=== PATIENT | female | born 1950 | race Caucasian/White ===

== ENCOUNTER 2016-09-15 09:43 | Outpatient (RCR) | payer MEDICAID ==
--- OUTSIDE RECORDS SUMMARY | 2016-06-23 11:01 | XMS REPORT | Continuity of Care Document ---
Author Author [facility] Organization [facility] Address Unknown Phone Unavailable Care Team Providers Care Set O Type Operator Name Role Phone DANA STREET MD PCP Insurance Providers Payer Name Policy Number Subscriber Name Relationship [facility] [employer] [id number] Nancy Dorsey 18 Self / Same As Patient Advance Directives Directive Response Recorded Date/Time Advance Directives No 05/17/14 8:10am Health Care Power of Mechanical Oxidizer No 05/17/14 8:10am Organ Donor No 05/17/14 8:10am Problems No known problems or medical conditions. Medications Medication Dose Route Sig Days/Qty Instructions Order Date Discontinued Date Status Meloxicam (Mobic) 15 Mg PO DAILY 07/02/11 10/04/13 Discontinued Omeprazole 40 Mg PO DAILY 07/02/11 03/15/12 Discontinued [Lisinopril] 1 Tab PO DAILY 07/02/11 12/16/12 Discontinued Quetiapine Fumarate 100 Mg PO DAILY 07/02/11 03/09/13 Discontinued Omeprazole 20 Mg PO DAILY 03/15/12 01/17/13 Discontinued [Eye Drops] 03/15/12 01/16/13 Discontinued Lisinopril 20 Mg PO DAILY 12/16/12 Active Ezetimibe 10 Mg PO BEDTIME 01/16/13 Active Aspirin 81 Mg PO DAILY 01/17/13 04/09/14 Discontinued Clopidogrel Bisulfate 75 Mg PO DAILY 01/17/13 Active Pantoprazole Sod 40 Mg PO DAILY 01/17/13 Active Metoprolol Tartrate 12.5 Mg PO TWICE A DAY take half a tablet twice daily 01/17/13 Active Timolol Maleate/Pf 1 Each OU TWICE A DAY 03/09/13 10/05/13 Discontinued Sertraline HCl 100 Mg PO DAILY 03/09/13 10/05/13 Discontinued Lovastatin (Mevacor) 1 Each PO DAILY WITH SUPPER 03/29/13 04/09/14 Discontinued Sucralfate 1 Gm PO THREE TIMES A DAY 30 Qty 03/29/13 06/22/13 Discontinued Meloxicam (Mobic) 1 Each PO DAILY 06/22/13 10/04/13 Discontinued Latanoprost 2.5 Ml OU BEDTIME 10/05/13 Active Multivitamin 1 Each PO DAILY 10/05/13 Active Meloxicam (Mobic) 15 Mg PO DAILY 04/09/14 Active Sertraline HCl 100 Mg PO DAILY 04/09/14 Active Timolol Maleate 1 Drop OP DIRECTED 5 Qty 04/09/14 Active Social History Social History Problem Response Recorded Date/Time Recent Foreign Travel No 06/29/2014 11:38am Hospital Discharge Instructions No hospital discharge instructions. Plan of Care No plan of care. Functional Status No functional status results. Allergies, Adverse Reactions, Alerts Allergen Type Severity Reaction Status Last Updated Iodinated Contrast Media - IV Dye Allergy Unknown Active 12/07/13 amoxicillin ([id number]) Allergy Unknown Active 12/07/13 Immunizations Name Given Type Date of Influenza Vaccine 06/13/13 Historical Vital Signs No known vital signs results. Results Laboratory Results Test Name Result Units Flags Reference Collection Date/Time Result Date/ Time Comments White Blood Count 5.8 10^3/uL 4.3-11.0 08/21/2014 10:57am 08/21/2014 11 :07am Red Blood Count 3.86 10^6/uL L 4.35-5.85 08/21/2014 10:57am 08/21/2014 11 :07am Hemoglobin 11.5 G/DL 11.5-16.0 08/21/2014 10:57am 08/21/2014 11:07am Hematocrit 35 % 35-52 08/21/2014 10:57am 08/21/2014 11:07am Mean Corpuscular Volume 91 FL 80-99 08/21/2014 10:57am 08/21/2014 11: 07am Mean Corpuscular Hemoglobin 30 PG 25-34 08/21/2014 10:57am 08/21/2014 11:07am Mean Corpuscular Hemoglobin Concent 33 G/DL 32-36 08/21/2014 10:57am 11:07am Red Cell Distribution Width 13.0 % 10.0-14.5 08/21/2014 10:57am 2013 11:07am Platelet Count 182 10^3/uL 130-400 08/21/2014 10:57am 08/21/2014 11: 07am Mean Platelet Volume 9.2 FL 7.4-10.4 08/21/2014 10:57am 08/21/2014 11: 07am Neutrophils (%) (Auto) 65 % 42-75 08/21/2014 10:57am 08/21/2014 11: 07am Lymphocytes (%) (Auto) 25 % 12-44 08/21/2014 10:57am 08/21/2014 11: 07am Monocytes (%) (Auto) 7 % 0-12 08/21/2014 10:57am 08/21/2014 11:07am Eosinophils (%) (Auto) 2 % 0-10 08/21/2014 10:57am 08/21/2014 11:07am Basophils (%) (Auto) 0 % 0-10 08/21/2014 10:57am 08/21/2014 11:07am Neutrophils # (Auto) 3.8 X 10^3 1.8-7.8 08/21/2014 10:57am 08/21/2014 11:07am Lymphocytes # (Auto) 1.5 X 10^3 1.0-4.0 08/21/2014 10:57am 08/21/2014 11:07am Monocytes # (Auto) 0.4 X 10^3 0.0-1.0 08/21/2014 10:57am 08/21/2014 11: 07am Eosinophils # (Auto) 0.1 10^3/uL 0.0-0.3 08/21/2014 10:57am 08/21/2014 11:07am Basophils # (Auto) 0.0 10^3/uL 0.0-0.1 08/21/2014 10:57am 08/21/2014 11 :07am Sodium Level 139 MMOL/L 135-145 08/21/2014 10:57am 08/21/2014 11:38am Potassium Level 4.0 MMOL/L 3.6-5.0 08/21/2014 10:57am 08/21/2014 11: 38am Chloride Level 104 MMOL/L 98-107 08/21/2014 10:57am 08/21/2014 11:38am Carbon Dioxide Level 27 MMOL/L 21-32 08/21/2014 10:57am 08/21/2014 11: 38am Blood Urea Nitrogen 20 MG/DL H 7-18 08/21/2014 10:57am 08/21/2014 11: 38am Creatinine 1.59 MG/DL H 0.60-1.30 08/21/2014 10:57am 08/21/2014 11:38am BUN/Creatinine Ratio 13 08/21/2014 10:57am 08/21/2014 11:38am Estimat Glomerular Filtration Rate 33 08/21/2014 10:57am 2013 11:38am GFR INTERPRETIVE DATA UNITS FOR ESTIMATED GFR (eGFR): mL/min/1.73 M2 REFERENCE RANGE FOR ESTIMATED GFR (eGFR) eGFR NORMAL eGFR >60 MODERATELY DECREASED eGFR 30-59 SEVERLY DECREASED eGFR 15-29 KIDNEY FAILURE <15 (OR DIALYSIS) Glucose Level 116 MG/DL H 70-105 08/21/2014 10:57am 08/21/2014 11:38am Calcium Level 8.7 MG/DL 8.5-10.1 08/21/2014 10:57am 08/21/2014 11:38am Total Bilirubin 0.4 MG/DL 0.1-1.0 08/21/2014 10:57am 08/21/2014 11: 38am Alkaline Phosphatase 92 U/L 40-136 08/21/2014 10:57am 08/21/2014 11: 38am Aspartate Amino Transf (AST/SGOT) 20 U/L 5-34 08/21/2014 10:57am 2013 11:38am Alanine Aminotransferase (ALT/SGPT) 17 U/L 0-55 08/21/2014 10:57am 05/2014 11:38am Total Protein 6.5 G/DL 6.4-8.2 08/21/2014 10:57am 08/21/2014 11:38am Albumin 3.7 G/DL 3.2-4.5 08/21/2014 10:57am 08/21/2014 11:38am Ferritin 208 H NG/ML 15-150 08/21/2014 10:57am 08/22/2014 9:17am Iron Level 84 UG/DL 35-180 08/21/2014 10:57am 08/22/2014 9:17am Transferrin % Saturation 28 % 15-50 08/21/2014 10:57am 08/22/2014 9: 17am Total Iron Binding Capacity 300 UG/DL 280-380 08/21/2014 10:57am 2013 9:17am TESTING PERFORMED BY: Kasey [place] [address] [place] [address] Procedures No known history of procedures. Encounters Encounter Location Date/Time Discharged Recurring Via [facility] 08/21/14 10:42am
[2016-06-23 11:31] LABS: BASOPHILS % (AUTO) 0 % (0-10); EOSINOPHILS # (AUTO) 0.2 10^3/uL (0.0-0.3); EOSINOPHILS % (AUTO) 3 % (0-10); LYMPHOCYTES % (AUTO) 20 % (12-44); MEAN CORPUSCULAR HEMOGLOBIN 31 PG (25-34); MEAN CORPUSCULAR HGB CONC 34 G/DL (32-36); MEAN CORPUSCULAR VOLUME 91 FL (80-99); MEAN PLATELET VOLUME 8.7 FL (7.4-10.4); MONOCYTES # (AUTO) 0.4 X 10^3 (0.0-1.0); MONOCYTES % (AUTO) 9 % (0-12); NEUTROPHILS # (AUTO) 3.3 X 10^3 (1.8-7.8); NEUTROPHILS % (AUTO) 68 % (42-75); PLATELET COUNT 188 10^3/uL (130-400); WHITE BLOOD COUNT 4.8 10^3/uL (4.3-11.0)
[2016-06-23 12:10] LABS: ALBUMIN 3.8 G/DL (3.2-4.5); BILIRUBIN,TOTAL 0.4 MG/DL (0.1-1.0); CREATININE SERUM 1.26 MG/DL (0.60-1.30); POTASSIUM 3.9 MMOL/L (3.6-5.0); TOTAL PROTEIN 6.6 G/DL (6.4-8.2)
[2016-07-14 13:34] LABS: BASOPHILS % (AUTO) 0 % (0-10); EOSINOPHILS % (AUTO) 0 % (0-10); LYMPHOCYTES # (AUTO) 0.8 X 10^3 (1.0-4.0); LYMPHOCYTES % (AUTO) 12 % (12-44); MEAN CORPUSCULAR HEMOGLOBIN 30 PG (25-34); MEAN CORPUSCULAR HGB CONC 34 G/DL (32-36); MEAN CORPUSCULAR VOLUME 89 FL (80-99); MEAN PLATELET VOLUME 9.5 FL (7.4-10.4); MONOCYTES # (AUTO) 0.1 X 10^3 (0.0-1.0); MONOCYTES % (AUTO) 1 % (0-12); NEUTROPHILS # (AUTO) 5.9 X 10^3 (1.8-7.8); NEUTROPHILS % (AUTO) 88 % (42-75); PLATELET COUNT 167 10^3/uL (130-400); RED BLOOD COUNT 4.24 10^6/uL (4.35-5.85); WHITE BLOOD COUNT 6.8 10^3/uL (4.3-11.0)
[2016-07-14 14:08] LABS: ALBUMIN 3.9 G/DL (3.2-4.5); BILIRUBIN,TOTAL 0.5 MG/DL (0.1-1.0); CALCIUM 9.1 MG/DL (8.5-10.1); CREATININE SERUM 1.32 MG/DL (0.60-1.30); POTASSIUM 4.1 MMOL/L (3.6-5.0); TOTAL PROTEIN 6.8 G/DL (6.4-8.2)
[2016-07-21 15:38] LABS: BASOPHILS % (AUTO) 0 % (0-10); EOSINOPHILS # (AUTO) 0.1 10^3/uL (0.0-0.3); EOSINOPHILS % (AUTO) 3 % (0-10); LYMPHOCYTES # (AUTO) 1.3 X 10^3 (1.0-4.0); LYMPHOCYTES % (AUTO) 61 % (12-44); MEAN CORPUSCULAR HEMOGLOBIN 29 PG (25-34); MEAN CORPUSCULAR HGB CONC 33 G/DL (32-36); MEAN CORPUSCULAR VOLUME 90 FL (80-99); MEAN PLATELET VOLUME 9.7 FL (7.4-10.4); MONOCYTES # (AUTO) 0.1 X 10^3 (0.0-1.0); MONOCYTES % (AUTO) 3 % (0-12); NEUTROPHILS # (AUTO) 0.7 X 10^3 (1.8-7.8); NEUTROPHILS % (AUTO) 32 % (42-75); PLATELET COUNT 100 10^3/uL (130-400); RED BLOOD COUNT 4.02 10^6/uL (4.35-5.85); RED CELL DISTRIBUTION WIDTH 13.3 % (10.0-14.5); WHITE BLOOD COUNT 2.1 10^3/uL (4.3-11.0)
[2016-07-21 16:04] LABS: CALCIUM 8.6 MG/DL (8.5-10.1); CREATININE SERUM 1.23 MG/DL (0.60-1.30); POTASSIUM 4.1 MMOL/L (3.6-5.0)
[2016-07-28 15:04] LABS: BASOPHILS % (AUTO) 0 % (0-10); EOSINOPHILS % (AUTO) 1 % (0-10); LYMPHOCYTES # (AUTO) 1.3 X 10^3 (1.0-4.0); LYMPHOCYTES % (AUTO) 47 % (12-44); MEAN CORPUSCULAR HEMOGLOBIN 29 PG (25-34); MEAN CORPUSCULAR HGB CONC 33 G/DL (32-36); MEAN CORPUSCULAR VOLUME 90 FL (80-99); MEAN PLATELET VOLUME 8.9 FL (7.4-10.4); MONOCYTES # (AUTO) 0.6 X 10^3 (0.0-1.0); MONOCYTES % (AUTO) 23 % (0-12); NEUTROPHILS # (AUTO) 0.8 X 10^3 (1.8-7.8); NEUTROPHILS % (AUTO) 30 % (42-75); PLATELET COUNT 168 10^3/uL (130-400); RED BLOOD COUNT 3.63 10^6/uL (4.35-5.85); WHITE BLOOD COUNT 2.7 10^3/uL (4.3-11.0)
[2016-07-28 15:50] LABS: CALCIUM 8.7 MG/DL (8.5-10.1); CREATININE SERUM 1.1 MG/DL (0.60-1.30)
[2016-08-04 11:08] LABS: BASOPHILS % (AUTO) 0 % (0-10); EOSINOPHILS % (AUTO) 0 % (0-10); LYMPHOCYTES # (AUTO) 1.1 X 10^3 (1.0-4.0); LYMPHOCYTES % (AUTO) 12 % (12-44); MEAN CORPUSCULAR HGB CONC 33 G/DL (32-36); MEAN CORPUSCULAR VOLUME 89 FL (80-99); MEAN PLATELET VOLUME 9.2 FL (7.4-10.4); MONOCYTES % (AUTO) 1 % (0-12); NEUTROPHILS # (AUTO) 7.7 X 10^3 (1.8-7.8); NEUTROPHILS % (AUTO) 88 % (42-75); PLATELET COUNT 212 10^3/uL (130-400); WHITE BLOOD COUNT 8.8 10^3/uL (4.3-11.0)
[2016-08-04 11:09] LABS: MEAN CORPUSCULAR HEMOGLOBIN 29 PG (25-34)
[2016-08-04 11:32] LABS: ALBUMIN 3.8 G/DL (3.2-4.5); BILIRUBIN,TOTAL 0.5 MG/DL (0.1-1.0); CALCIUM 9.2 MG/DL (8.5-10.1); CREATININE SERUM 1.39 MG/DL (0.60-1.30); MAGNESIUM 1.6 MG/DL (1.8-2.4); POTASSIUM 4.4 MMOL/L (3.6-5.0); TOTAL PROTEIN 6.9 G/DL (6.4-8.2)
[2016-08-11 14:13] LABS: BASOPHILS % (AUTO) 0 % (0-10); EOSINOPHILS # (AUTO) 0.1 10^3/uL (0.0-0.3); EOSINOPHILS % (AUTO) 5 % (0-10); LYMPHOCYTES # (AUTO) 0.8 X 10^3 (1.0-4.0); LYMPHOCYTES % (AUTO) 55 % (12-44); MEAN CORPUSCULAR HEMOGLOBIN 30 PG (25-34); MEAN CORPUSCULAR HGB CONC 33 G/DL (32-36); MEAN CORPUSCULAR VOLUME 90 FL (80-99); MEAN PLATELET VOLUME 10.3 FL (7.4-10.4); MONOCYTES % (AUTO) 3 % (0-12); NEUTROPHILS # (AUTO) 0.6 X 10^3 (1.8-7.8); NEUTROPHILS % (AUTO) 38 % (42-75); PLATELET COUNT 102 10^3/uL (130-400); RED BLOOD COUNT 3.45 10^6/uL (4.35-5.85); RED CELL DISTRIBUTION WIDTH 13.9 % (10.0-14.5); WHITE BLOOD COUNT 1.5 10^3/uL (4.3-11.0)
[2016-08-11 15:39] LABS: CALCIUM 8.7 MG/DL (8.5-10.1); CREATININE SERUM 1.13 MG/DL (0.60-1.30)
[2016-08-18 15:25] LABS: BASOPHILS % (AUTO) 0 % (0-10); EOSINOPHILS % (AUTO) 0 % (0-10); LYMPHOCYTES # (AUTO) 1.8 X 10^3 (1.0-4.0); LYMPHOCYTES % (AUTO) 39 % (12-44); MEAN CORPUSCULAR HEMOGLOBIN 29 PG (25-34); MEAN CORPUSCULAR HGB CONC 32 G/DL (32-36); MEAN CORPUSCULAR VOLUME 90 FL (80-99); MEAN PLATELET VOLUME 9.3 FL (7.4-10.4); MONOCYTES # (AUTO) 1.1 X 10^3 (0.0-1.0); MONOCYTES % (AUTO) 23 % (0-12); NEUTROPHILS # (AUTO) 1.8 X 10^3 (1.8-7.8); NEUTROPHILS % (AUTO) 38 % (42-75); PLATELET COUNT 216 10^3/uL (130-400); RED BLOOD COUNT 3.35 10^6/uL (4.35-5.85); RED CELL DISTRIBUTION WIDTH 15.2 % (10.0-14.5); WHITE BLOOD COUNT 4.7 10^3/uL (4.3-11.0)
[2016-08-18 16:34] LABS: CALCIUM 8.9 MG/DL (8.5-10.1); CREATININE SERUM 1.12 MG/DL (0.60-1.30); POTASSIUM 3.4 MMOL/L (3.6-5.0)
[2016-08-25 11:41] LABS: BASOPHILS % (AUTO) 0 % (0-10); EOSINOPHILS % (AUTO) 0 % (0-10); LYMPHOCYTES # (AUTO) 0.8 X 10^3 (1.0-4.0); LYMPHOCYTES % (AUTO) 10 % (12-44); MEAN CORPUSCULAR HEMOGLOBIN 30 PG (25-34); MEAN CORPUSCULAR HGB CONC 33 G/DL (32-36); MEAN CORPUSCULAR VOLUME 90 FL (80-99); MEAN PLATELET VOLUME 9.5 FL (7.4-10.4); MONOCYTES # (AUTO) 0.1 X 10^3 (0.0-1.0); MONOCYTES % (AUTO) 1 % (0-12); NEUTROPHILS # (AUTO) 6.9 X 10^3 (1.8-7.8); NEUTROPHILS % (AUTO) 89 % (42-75); PLATELET COUNT 214 10^3/uL (130-400); RED BLOOD COUNT 3.49 10^6/uL (4.35-5.85); RED CELL DISTRIBUTION WIDTH 15.6 % (10.0-14.5); WHITE BLOOD COUNT 7.8 10^3/uL (4.3-11.0)
[2016-08-25 12:18] LABS: ALBUMIN 3.6 G/DL (3.2-4.5); BILIRUBIN,TOTAL 0.4 MG/DL (0.1-1.0); CALCIUM 8.9 MG/DL (8.5-10.1); CREATININE SERUM 1.16 MG/DL (0.60-1.30); MAGNESIUM 1.3 MG/DL (1.8-2.4); POTASSIUM 4.2 MMOL/L (3.6-5.0); TOTAL PROTEIN 6.8 G/DL (6.4-8.2)
[2016-09-01 15:02] LABS: BASOPHILS % (AUTO) 0 % (0-10); EOSINOPHILS % (AUTO) 1 % (0-10); LYMPHOCYTES # (AUTO) 1.3 X 10^3 (1.0-4.0); LYMPHOCYTES % (AUTO) 59 % (12-44); MEAN CORPUSCULAR HEMOGLOBIN 29 PG (25-34); MEAN CORPUSCULAR HGB CONC 33 G/DL (32-36); MEAN CORPUSCULAR VOLUME 90 FL (80-99); MEAN PLATELET VOLUME 10.3 FL (7.4-10.4); MONOCYTES # (AUTO) 0.1 X 10^3 (0.0-1.0); MONOCYTES % (AUTO) 6 % (0-12); NEUTROPHILS # (AUTO) 0.8 X 10^3 (1.8-7.8); NEUTROPHILS % (AUTO) 34 % (42-75); PLATELET COUNT 78 10^3/uL (130-400); RED CELL DISTRIBUTION WIDTH 15.6 % (10.0-14.5); WHITE BLOOD COUNT 2.2 10^3/uL (4.3-11.0)
[2016-09-01 15:48] LABS: CALCIUM 8.8 MG/DL (8.5-10.1); CREATININE SERUM 1.12 MG/DL (0.60-1.30); POTASSIUM 3.5 MMOL/L (3.6-5.0)
[2016-09-08 14:20] LABS: BASOPHILS % (AUTO) 0 % (0-10); EOSINOPHILS # (AUTO) 0.1 10^3/uL (0.0-0.3); EOSINOPHILS % (AUTO) 1 % (0-10); LYMPHOCYTES # (AUTO) 1.6 X 10^3 (1.0-4.0); LYMPHOCYTES % (AUTO) 32 % (12-44); MEAN CORPUSCULAR HEMOGLOBIN 30 PG (25-34); MEAN CORPUSCULAR HGB CONC 32 G/DL (32-36); MEAN CORPUSCULAR VOLUME 92 FL (80-99); MEAN PLATELET VOLUME 9.9 FL (7.4-10.4); MONOCYTES # (AUTO) 0.7 X 10^3 (0.0-1.0); MONOCYTES % (AUTO) 14 % (0-12); NEUTROPHILS # (AUTO) 2.7 X 10^3 (1.8-7.8); NEUTROPHILS % (AUTO) 53 % (42-75); PLATELET COUNT 153 10^3/uL (130-400); RED BLOOD COUNT 3.11 10^6/uL (4.35-5.85); WHITE BLOOD COUNT 5.1 10^3/uL (4.3-11.0)
[2016-09-08 14:44] LABS: CALCIUM 8.6 MG/DL (8.5-10.1); CREATININE SERUM 1.14 MG/DL (0.60-1.30); POTASSIUM 3.5 MMOL/L (3.6-5.0)
[~2016-09-15] VITALS: Ht 147.3 cm; Wt 98.4 kg
[~2016-09-15 09:43] MED LIST: ALTEPLASE 2 MG (CATHFLO) CANCER CENTER IV ONE; ASP81TEC PO; BRIM5DRO OU; CARBOPLATIN IV SCH; CHOL100045 PO; CLOP75TA PO; COMBIGAN OPTH OU; D5W IV SCH; DOXE25CA46 PO; EYE DROPS; EZET10TA5 PO; FAMOTIDINE 20MG/2ML IV (CANCER CTR) IV SCH; LATA2.5D19 OU; LISI40TA PO; LISINOPRIL PO; LOVA10TA PO; LOVA20TA2 PO; MAGN400T6 PO; MELO-195 PO; METO-333 PO; MULT-974 PO; NS IV 500 ML (CANCER CENTER) IV SCH; OMEP20TA2 PO; OMEP40CA36 PO; ONDANSETRON 16 MG, DEXAMETHASONE 10 MG/NS 50 ML IVPB IV SCH; PACLITAXEL SEMI SYNTHETIC IV SCH; PNT40TEC PO; QTP100T PO; SCR1T1 PO; SRTR100T PO; TIMO1DRO4 OU; TML5OP2.5 OP; [UNRECOGNIZED DRUG - OTHER] IV SCH; [UNRECOGNIZED DRUG - OTHER] IV SCH; [UNRECOGNIZED DRUG - OTHER] IV SCH; diphenhydrAMINE 25 MG TAB (BENADRYL) CANCER CENTER PO SCH
[2016-09-15 10:05] LABS: BASOPHILS % (AUTO) 0 % (0-10); EOSINOPHILS % (AUTO) 0 % (0-10); LYMPHOCYTES # (AUTO) 0.8 X 10^3 (1.0-4.0); LYMPHOCYTES % (AUTO) 10 % (12-44); MEAN CORPUSCULAR HEMOGLOBIN 29 PG (25-34); MEAN CORPUSCULAR HGB CONC 32 G/DL (32-36); MEAN CORPUSCULAR VOLUME 92 FL (80-99); MEAN PLATELET VOLUME 10.1 FL (7.4-10.4); MONOCYTES # (AUTO) 0.1 X 10^3 (0.0-1.0); MONOCYTES % (AUTO) 1 % (0-12); NEUTROPHILS # (AUTO) 7.3 X 10^3 (1.8-7.8); NEUTROPHILS % (AUTO) 89 % (42-75); PLATELET COUNT 147 10^3/uL (130-400); RED BLOOD COUNT 3.27 10^6/uL (4.35-5.85); RED CELL DISTRIBUTION WIDTH 17.7 % (10.0-14.5); WHITE BLOOD COUNT 8.2 10^3/uL (4.3-11.0)
[2016-09-15] MEDS ORDERED: MAGNESIUM SULFATE (CANCER CTR) 3 GM in NS (IVPB) CANCER CENTER 100 ML IV ONE (10:28)
[2016-09-15 10:36] LABS: ALBUMIN 3.7 G/DL (3.2-4.5); BILIRUBIN,TOTAL 0.5 MG/DL (0.1-1.0); CALCIUM 8.7 MG/DL (8.5-10.1); CREATININE SERUM 1.35 MG/DL (0.60-1.30); MAGNESIUM 1.4 MG/DL (1.8-2.4); POTASSIUM 4.4 MMOL/L (3.6-5.0); TOTAL PROTEIN 6.8 G/DL (6.4-8.2)
== END 2016-09-21 | disposition home or self-care (01) ==
LOC: ONC 09:43
PROVIDERS: ATTEND Internal Medicine Hematology & Oncology
DX: Z51.11 Encounter for antineoplastic chemotherapy (principal); C56.2 Malignant neoplasm of left ovary; C55 Malignant neoplasm of uterus, part unspecified; C79.89 Secondary malignant neoplasm of other specified sites; C78.5 Secondary malignant neoplasm of large intestine and rectum; C78.6 Secondary malignant neoplasm of retroperitoneum and peritoneum; Z85.3 Personal history of malignant neoplasm of breast; K21.0 Gastro-esophageal reflux disease with esophagitis; K44.9 Diaphragmatic hernia without obstruction or gangrene; D50.0 Iron deficiency anemia secondary to blood loss (chronic); D64.81 Anemia due to antineoplastic chemotherapy; D63.1 Anemia in chronic kidney disease; N18.9 Chronic kidney disease, unspecified; I25.10 Atherosclerotic heart disease of native coronary artery without angina pectoris; Z95.5 Presence of coronary angioplasty implant and graft; Z79.02 Long term (current) use of antithrombotics/antiplatelets; Z79.82 Long term (current) use of aspirin; Z92.21 Personal history of antineoplastic chemotherapy
CPT/HCPCS: 36415; 36591; 36593; 80048; 80053; 83735; 85025; 86300; 86304; 96367; 96368; 96375; 96413; 96415; 96417; 99213

== ENCOUNTER 2016-12-08 12:55 | Outpatient (RCR) | payer MEDICAID ==
--- OUTSIDE RECORDS SUMMARY | 2016-09-22 11:34 | XMS REPORT | Continuity of Care Document ---
Author Author [facility] Organization [facility] Address Unknown Phone Unavailable Care Team Providers Care Corrugator Machine Operator Name Role Phone DANA STREET MD PCP Insurance Providers Payer Name Policy Number Subscriber Name Relationship [facility] [employer] [id number] Nancy Dorsey 20 Self / Same As Patient Advance Directives Directive Response Recorded Date/Time Advance Directives No 05/17/14 8:10am Health Care Power of Senior Software Quality Engineer No 05/17/14 8:10am Organ Donor No 05/17/14 [...] IV Dye Allergy Unknown Active 12/07/13 amoxicillin ([id number]) Allergy Unknown Active 12/07/13 Immunizations Name Given [...] 10:57am 2013 9:17am TESTING PERFORMED BY: Kasey [place] [address] [place] [address] Procedures No known history of procedures. Encounters Encounter Location Date/Time Discharged Recurring [facility] 08/21/14 10:42am
[2016-09-22 11:37] LABS: BASOPHILS % (AUTO) 0 % (0-10); EOSINOPHILS # (AUTO) 0.1 10^3/uL (0.0-0.3); EOSINOPHILS % (AUTO) 5 % (0-10); LYMPHOCYTES # (AUTO) 0.9 X 10^3 (1.0-4.0); LYMPHOCYTES % (AUTO) 58 % (12-44); MEAN CORPUSCULAR HEMOGLOBIN 30 PG (25-34); MEAN CORPUSCULAR HGB CONC 32 G/DL (32-36); MEAN CORPUSCULAR VOLUME 92 FL (80-99); MEAN PLATELET VOLUME 10.4 FL (7.4-10.4); MONOCYTES # (AUTO) 0.1 X 10^3 (0.0-1.0); MONOCYTES % (AUTO) 4 % (0-12); NEUTROPHILS # (AUTO) 0.5 X 10^3 (1.8-7.8); NEUTROPHILS % (AUTO) 32 % (42-75); PLATELET COUNT 64 10^3/uL (130-400); RED BLOOD COUNT 2.98 10^6/uL (4.35-5.85); RED CELL DISTRIBUTION WIDTH 17.3 % (10.0-14.5); WHITE BLOOD COUNT 1.6 10^3/uL (4.3-11.0)
[2016-09-22 12:14] LABS: CALCIUM 8.7 MG/DL (8.5-10.1); CREATININE SERUM 1.14 MG/DL (0.60-1.30); POTASSIUM 4.1 MMOL/L (3.6-5.0)
[2016-09-29 13:33] LABS: BASOPHILS % (AUTO) 0 % (0-10); EOSINOPHILS % (AUTO) 1 % (0-10); LYMPHOCYTES # (AUTO) 1.5 X 10^3 (1.0-4.0); LYMPHOCYTES % (AUTO) 38 % (12-44); MEAN CORPUSCULAR HEMOGLOBIN 30 PG (25-34); MEAN CORPUSCULAR HGB CONC 32 G/DL (32-36); MEAN CORPUSCULAR VOLUME 92 FL (80-99); MONOCYTES # (AUTO) 0.7 X 10^3 (0.0-1.0); MONOCYTES % (AUTO) 19 % (0-12); NEUTROPHILS # (AUTO) 1.6 X 10^3 (1.8-7.8); NEUTROPHILS % (AUTO) 42 % (42-75); PLATELET COUNT 106 10^3/uL (130-400); RED BLOOD COUNT 3.18 10^6/uL (4.35-5.85); WHITE BLOOD COUNT 3.8 10^3/uL (4.3-11.0)
[2016-09-29 14:33] LABS: CALCIUM 8.9 MG/DL (8.5-10.1); CREATININE SERUM 1.17 MG/DL (0.60-1.30); POTASSIUM 3.8 MMOL/L (3.6-5.0)
[2016-10-06 10:01] LABS: BASOPHILS % (AUTO) 0 % (0-10); EOSINOPHILS % (AUTO) 1 % (0-10); LYMPHOCYTES % (AUTO) 23 % (12-44); MEAN CORPUSCULAR HEMOGLOBIN 30 PG (25-34); MEAN CORPUSCULAR HGB CONC 32 G/DL (32-36); MEAN CORPUSCULAR VOLUME 94 FL (80-99); MEAN PLATELET VOLUME 10.1 FL (7.4-10.4); MONOCYTES # (AUTO) 0.4 X 10^3 (0.0-1.0); MONOCYTES % (AUTO) 9 % (0-12); NEUTROPHILS % (AUTO) 68 % (42-75); PLATELET COUNT 119 10^3/uL (130-400); RED CELL DISTRIBUTION WIDTH 18.4 % (10.0-14.5); WHITE BLOOD COUNT 4.4 10^3/uL (4.3-11.0)
[2016-10-06 10:26] LABS: ALBUMIN 3.6 G/DL (3.2-4.5); BILIRUBIN,TOTAL 0.4 MG/DL (0.1-1.0); CALCIUM 8.7 MG/DL (8.5-10.1); CREATININE SERUM 1.14 MG/DL (0.60-1.30); MAGNESIUM 1.4 MG/DL (1.8-2.4); POTASSIUM 4.2 MMOL/L (3.6-5.0); TOTAL PROTEIN 6.4 G/DL (6.4-8.2)
[2016-10-06 11:31] LABS: %SAT TOTAL IRON BINDING CAPIC 39 % (15-50); TIBC 333 ug/dL (280-380)
[2016-10-07 07:39] LABS: FERRITIN 461 ng/mL (15-150); UIBC 202 ug/dL (55-450)
[2016-11-10 11:22] LABS: BASOPHILS % (AUTO) 0 % (0-10); EOSINOPHILS # (AUTO) 0.2 10^3/uL (0.0-0.3); EOSINOPHILS % (AUTO) 3 % (0-10); LYMPHOCYTES # (AUTO) 1.4 X 10^3 (1.0-4.0); LYMPHOCYTES % (AUTO) 24 % (12-44); MEAN CORPUSCULAR HEMOGLOBIN 31 PG (25-34); MEAN CORPUSCULAR HGB CONC 32 G/DL (32-36); MEAN CORPUSCULAR VOLUME 97 FL (80-99); MEAN PLATELET VOLUME 9.1 FL (7.4-10.4); MONOCYTES # (AUTO) 0.5 X 10^3 (0.0-1.0); MONOCYTES % (AUTO) 8 % (0-12); NEUTROPHILS # (AUTO) 3.8 X 10^3 (1.8-7.8); NEUTROPHILS % (AUTO) 65 % (42-75); PLATELET COUNT 158 10^3/uL (130-400); RED BLOOD COUNT 3.53 10^6/uL (4.35-5.85); RED CELL DISTRIBUTION WIDTH 17.3 % (10.0-14.5); RETICULOCYTE % 2.14 % (0.50-2.40); WHITE BLOOD COUNT 5.8 10^3/uL (4.3-11.0)
[2016-11-10 11:46] LABS: ALBUMIN 3.9 G/DL (3.2-4.5); BILIRUBIN,TOTAL 0.4 MG/DL (0.1-1.0); CALCIUM 8.9 MG/DL (8.5-10.1); CREATININE SERUM 1.3 MG/DL (0.60-1.30); POTASSIUM 4.1 MMOL/L (3.6-5.0); TOTAL PROTEIN 6.8 G/DL (6.4-8.2)
[~2016-12-08 12:55] MED LIST changes: +ACETAMINOPHEN 500 MG TAB (TYLENOL) CANCER CTR ONE; -ALTEPLASE 2 MG (CATHFLO) CANCER CENTER IV ONE; -CARBOPLATIN IV SCH; -D5W IV SCH; -FAMOTIDINE 20MG/2ML IV (CANCER CTR) IV SCH; +NS IV 500 ML (CANCER CENTER) 500 ML ONE; -NS IV 500 ML (CANCER CENTER) IV SCH; -ONDANSETRON 16 MG, DEXAMETHASONE 10 MG/NS 50 ML IVPB IV SCH; -PACLITAXEL SEMI SYNTHETIC IV SCH; -[UNRECOGNIZED DRUG - OTHER] IV SCH; -[UNRECOGNIZED DRUG - OTHER] IV SCH; -[UNRECOGNIZED DRUG - OTHER] IV SCH; -diphenhydrAMINE 25 MG TAB (BENADRYL) CANCER CENTER PO SCH
== END 2016-12-21 | disposition home or self-care (01) ==
LOC: ONC 12:55
PROVIDERS: ATTEND Internal Medicine Hematology & Oncology
DX: C56.2 Malignant neoplasm of left ovary (principal); C55 Malignant neoplasm of uterus, part unspecified; C79.89 Secondary malignant neoplasm of other specified sites; C78.5 Secondary malignant neoplasm of large intestine and rectum; C78.6 Secondary malignant neoplasm of retroperitoneum and peritoneum; Z85.3 Personal history of malignant neoplasm of breast; K21.0 Gastro-esophageal reflux disease with esophagitis; K44.9 Diaphragmatic hernia without obstruction or gangrene; D50.0 Iron deficiency anemia secondary to blood loss (chronic); D64.81 Anemia due to antineoplastic chemotherapy; D63.1 Anemia in chronic kidney disease; N18.9 Chronic kidney disease, unspecified; I25.10 Atherosclerotic heart disease of native coronary artery without angina pectoris; Z95.5 Presence of coronary angioplasty implant and graft; Z79.02 Long term (current) use of antithrombotics/antiplatelets; Z79.82 Long term (current) use of aspirin; Z92.21 Personal history of antineoplastic chemotherapy; Z45.2 Encounter for adjustment and management of vascular access device
CPT/HCPCS: 36415; 36430; 36591; 80048; 80053; 82728; 83540; 83735; 85025; 85045; 86300; 86304; 86850; 86900; 86901; 86920; 96523; 99213

== ENCOUNTER → 2016-12-21 | Outpatient (CLI) | payer MEDICAID ==
[~2016-12-21] MED LIST changes: -ACETAMINOPHEN 500 MG TAB (TYLENOL) CANCER CTR ONE; -NS IV 500 ML (CANCER CENTER) 500 ML ONE
--- NOTE | 2016-12-22 10:21 | Diagnostic Imaging Report ---
Bilateral screening mammogram The current study was also evaluated with a Computer Aided Detection (CAD) system. Indication: Screening. No current complaints stated on the questionnaire. COMPARISON: 11/15/15. FINDINGS: The breasts are composed of scattered fibroglandular densities. There are multiple benign-appearing calcifications seen. Surgical clips are seen in the outer aspect of the left breast without evidence of scarring. Allowing for technique and positional differences, no suspicious change is seen. IMPRESSION: No significant change. ACR BI-RADS Category 2: Benign findings. Result letter will be mailed to the patient. Note: At least 10% of breast cancer is not imaged by mammography. Dictated by: Dictated on workstation # [id number]
== END ==
LOC: RAD 12:01
PROVIDERS: ATTEND Internal Medicine Hematology & Oncology
DX: Z12.31 Encounter for screening mammogram for malignant neoplasm of breast (principal)
CPT/HCPCS: 77067

== ENCOUNTER → 2017-01-07 | Outpatient (CLI) | payer MEDICAID ==
--- NOTE | 2017-01-09 09:27 | ECHOCARDIOGRAPHY REPORT ---
DATE OF SERVICE: 01/07/2017 PROCEDURE: Echocardiography. ORDERING PHYSICIAN: Dr. Patel. PRIMARY PHYSICIAN: Dr. Coe. OTHER PROVIDER: Xena Krueger APRN CLINICAL DIAGNOSES: Chest discomfort, coronary artery disease, hypertension. MEASUREMENTS: LV diameter, diastolic 3.4. IVF thickness, diastolic 1. LVPW thickness, diastolic 1. Aortic root 2.9. Left atrium 3.1. DESCRIPTION: Two-dimensional echocardiography shows normal global left ventricular systolic function. Aortic, mitral and tricuspid valve leaflets show good leaflet excursion. There is no significant pericardial effusion. Doppler imaging shows trivial to mild mitral, pulmonic and tricuspid regurgitation. Mitral inflow is consistent with grade 1 diastolic dysfunction of the left ventricle. There is no Doppler evidence of significant valvular stenosis. Pulmonary artery systolic pressure is estimated to be approximately 30 mmHg. There is no evidence of any significant intracardiac shunt on this transthoracic echocardiographic study. Inferior vena cava is not dilated and does exhibit inspiratory collapse. CONCLUSIONS: 1. Normal global left ventricular systolic function with an ejection fraction of approximately 60%. 2. Trivial to mild mitral, pulmonic and tricuspid regurgitation. 3. No evidence of significant valvular stenosis. 4. Mild diastolic dysfunction of the left ventricle. 5. Pulmonary artery systolic pressure is estimated to be approximately 30 mmHg. Job ID: [id number] DocumentID: [id number] Dictated Date: 01/08/2017 11:35:20 Button Station Worker Date: 01/08/2017 14:34:21 Dictated By: MILKA PATEL MD, MA, FACP, FACC,
== END ==
LOC: CARD 14:05
PROVIDERS: ATTEND Internal Medicine Cardiovascular Disease
DX: R07.89 Other chest pain (principal); I65.23 Occlusion and stenosis of bilateral carotid arteries; I25.10 Atherosclerotic heart disease of native coronary artery without angina pectoris; I12.9 Hypertensive chronic kidney disease with stage 1 through stage 4 chronic kidney disease, or unspecified chronic kidney disease; N18.2 Chronic kidney disease, stage 2 (mild); E78.4 Other hyperlipidemia; E66.09 Other obesity due to excess calories; G47.33 Obstructive sleep apnea (adult) (pediatric)
CPT/HCPCS: 93306

== ENCOUNTER → 2017-01-19 | Outpatient (CLI) | payer MEDICAID ==
[~2017-01-19] VITALS: Ht 165.1 cm; Wt 95.3 kg
[~2017-01-19] MED LIST changes: +REGADENOSON 0.4 MG/5 ML SYR (LEXISCAN) IV ONE
[2017-01-19] MEDS: CATHETER FLUSH 10 ML SYR IV PRN ×2 (11:55→13:19)
[2017-01-19 13:16] VITALS: BP 152/85
--- NOTE | 2017-01-19 21:08 | STRESS TEST ---
DATE OF SERVICE: 01/19/2017 DATE OF SERVICE: 01/19/2017. ORDERING PHYSICIAN: Dr. Patel. PRIMARY PHYSICIAN: Dr. Coe. OTHER PHYSICIAN: GERALDO Medina. CLINICAL DIAGNOSIS: Chest discomfort, coronary artery disease, hypertension. Baseline images were carried out after injection of 10.23 mCi of technetium-99m Tetrofosmin. This was followed by 0.4 mg regadenoson and 32.5 mCi of technetium-99m Tetrofosmin for stress imaging. The electrocardiogram showed sinus rhythm at baseline and did not change significantly with the regadenoson infusion. Review of images at rest and following stress does not indicate any distinct perfusion defects consistent with significant myocardial ischemia or infarction. Gated images show normal global left ventricular systolic function with normal regional wall motion. Left ventricular ejection fraction is calculated to be 61%. Left ventricular end-diastolic volume is 27 mL. TID is absent (1.04). CONCLUSIONS: 1. No evidence of any significant myocardial ischemia or infarction on this study. 2. Normal regional wall motion. 3. Normal global left ventricular systolic function with a calculated ejection fraction of 61%. Job ID: [id number] DocumentID: [id number] Dictated Date: 01/19/2017 15:45:27 Mobile Sales Assistant Date: 01/19/2017 16:09:29 Dictated By: MILKA PATEL MD, MA, FACP, FACC,
== END ==
LOC: CARD 11:40
PROVIDERS: ATTEND Internal Medicine Cardiovascular Disease
DX: I65.23 Occlusion and stenosis of bilateral carotid arteries (principal); R07.89 Other chest pain; I25.10 Atherosclerotic heart disease of native coronary artery without angina pectoris; N18.2 Chronic kidney disease, stage 2 (mild); I12.9 Hypertensive chronic kidney disease with stage 1 through stage 4 chronic kidney disease, or unspecified chronic kidney disease; E78.4 Other hyperlipidemia; G47.33 Obstructive sleep apnea (adult) (pediatric); E66.09 Other obesity due to excess calories
CPT/HCPCS: 78452; 93017

== ENCOUNTER 2017-03-30 10:43 | Outpatient (RCR) | payer MEDICAID ==
[2017-01-05 11:43] LABS: BASOPHILS % (AUTO) 0 % (0-10); EOSINOPHILS # (AUTO) 0.1 10^3/uL (0.0-0.3); EOSINOPHILS % (AUTO) 3 % (0-10); LYMPHOCYTES # (AUTO) 1.2 X 10^3 (1.0-4.0); LYMPHOCYTES % (AUTO) 28 % (12-44); MEAN CORPUSCULAR HEMOGLOBIN 31 PG (25-34); MEAN CORPUSCULAR HGB CONC 32 G/DL (32-36); MEAN CORPUSCULAR VOLUME 96 FL (80-99); MEAN PLATELET VOLUME 9.6 FL (7.4-10.4); MONOCYTES # (AUTO) 0.3 X 10^3 (0.0-1.0); MONOCYTES % (AUTO) 7 % (0-12); NEUTROPHILS # (AUTO) 2.6 X 10^3 (1.8-7.8); NEUTROPHILS % (AUTO) 62 % (42-75); PLATELET COUNT 163 10^3/uL (130-400); RED BLOOD COUNT 3.63 10^6/uL (4.35-5.85); RED CELL DISTRIBUTION WIDTH 14.8 % (10.0-14.5); WHITE BLOOD COUNT 4.1 10^3/uL (4.3-11.0)
[2017-01-05 12:01] LABS: ALBUMIN 3.7 G/DL (3.2-4.5); BILIRUBIN,TOTAL 0.3 MG/DL (0.1-1.0); CREATININE SERUM 1.34 MG/DL (0.60-1.30); POTASSIUM 4.2 MMOL/L (3.6-5.0); TOTAL PROTEIN 6.7 G/DL (6.4-8.2)
[2017-03-02 11:03] LABS: BASOPHILS % (AUTO) 0 % (0-10); EOSINOPHILS # (AUTO) 0.1 10^3/uL (0.0-0.3); EOSINOPHILS % (AUTO) 2 % (0-10); LYMPHOCYTES # (AUTO) 1.7 X 10^3 (1.0-4.0); LYMPHOCYTES % (AUTO) 32 % (12-44); MEAN CORPUSCULAR HEMOGLOBIN 30 PG (25-34); MEAN CORPUSCULAR HGB CONC 32 G/DL (32-36); MEAN CORPUSCULAR VOLUME 93 FL (80-99); MEAN PLATELET VOLUME 9.7 FL (7.4-10.4); MONOCYTES # (AUTO) 0.4 X 10^3 (0.0-1.0); MONOCYTES % (AUTO) 8 % (0-12); NEUTROPHILS % (AUTO) 57 % (42-75); PLATELET COUNT 177 10^3/uL (130-400); RED BLOOD COUNT 3.97 10^6/uL (4.35-5.85); RED CELL DISTRIBUTION WIDTH 14.3 % (10.0-14.5); WHITE BLOOD COUNT 5.3 10^3/uL (4.3-11.0)
[2017-03-02 11:24] LABS: ALBUMIN 3.8 GM/DL (3.2-4.5); BILIRUBIN,TOTAL 0.4 MG/DL (0.1-1.0); CALCIUM 9.3 MG/DL (8.5-10.1); CREATININE SERUM 1.35 MG/DL (0.60-1.30); ICTERUS 0.3 (-100-1.9); POTASSIUM 4.4 MMOL/L (3.6-5.0); TOTAL PROTEIN 7.3 GM/DL (6.4-8.2)
[~2017-03-30 10:43] MED LIST changes: +ALTEPLASE 2 MG (CATHFLO) CANCER CENTER IV ONE; -REGADENOSON 0.4 MG/5 ML SYR (LEXISCAN) IV ONE
[2017-03-30 11:05] LABS: BASOPHILS % (AUTO) 0 % (0-10); EOSINOPHILS # (AUTO) 0.2 10^3/uL (0.0-0.3); EOSINOPHILS % (AUTO) 3 % (0-10); LYMPHOCYTES # (AUTO) 1.4 X 10^3 (1.0-4.0); LYMPHOCYTES % (AUTO) 27 % (12-44); MEAN CORPUSCULAR HEMOGLOBIN 30 PG (25-34); MEAN CORPUSCULAR HGB CONC 33 G/DL (32-36); MEAN CORPUSCULAR VOLUME 93 FL (80-99); MEAN PLATELET VOLUME 9.3 FL (7.4-10.4); MONOCYTES # (AUTO) 0.5 X 10^3 (0.0-1.0); MONOCYTES % (AUTO) 9 % (0-12); NEUTROPHILS # (AUTO) 3.1 X 10^3 (1.8-7.8); NEUTROPHILS % (AUTO) 60 % (42-75); PLATELET COUNT 174 10^3/uL (130-400); RED BLOOD COUNT 3.86 10^6/uL (4.35-5.85); RED CELL DISTRIBUTION WIDTH 14.4 % (10.0-14.5); WHITE BLOOD COUNT 5.1 10^3/uL (4.3-11.0)
[2017-03-30 11:38] LABS: ALBUMIN 3.9 GM/DL (3.2-4.5); BILIRUBIN,TOTAL 0.5 MG/DL (0.1-1.0); CALCIUM 9.2 MG/DL (8.5-10.1); CREATININE SERUM 1.3 MG/DL (0.60-1.30); POTASSIUM 4.4 MMOL/L (3.6-5.0); TOTAL PROTEIN 7.2 GM/DL (6.4-8.2)
== END 2017-04-05 | disposition home or self-care (01) ==
LOC: ONC 10:43
PROVIDERS: ATTEND Internal Medicine Hematology & Oncology
DX: C56.2 Malignant neoplasm of left ovary (principal); C55 Malignant neoplasm of uterus, part unspecified; C79.89 Secondary malignant neoplasm of other specified sites; C78.5 Secondary malignant neoplasm of large intestine and rectum; C78.6 Secondary malignant neoplasm of retroperitoneum and peritoneum; Z85.3 Personal history of malignant neoplasm of breast; K21.0 Gastro-esophageal reflux disease with esophagitis; K44.9 Diaphragmatic hernia without obstruction or gangrene; D50.0 Iron deficiency anemia secondary to blood loss (chronic); D64.81 Anemia due to antineoplastic chemotherapy; D63.1 Anemia in chronic kidney disease; N18.9 Chronic kidney disease, unspecified; I25.10 Atherosclerotic heart disease of native coronary artery without angina pectoris; Z95.5 Presence of coronary angioplasty implant and graft; Z79.02 Long term (current) use of antithrombotics/antiplatelets; Z79.82 Long term (current) use of aspirin; Z92.21 Personal history of antineoplastic chemotherapy; Z45.2 Encounter for adjustment and management of vascular access device
CPT/HCPCS: 36415; 36591; 36593; 80053; 85025; 86300; 86304; 96523; 99213

== ENCOUNTER → 2017-08-26 | Outpatient (CLI) | payer MEDICARE, MEDICAID ==
[~2017-08-26] MED LIST changes: -ALTEPLASE 2 MG (CATHFLO) CANCER CENTER IV ONE
--- NOTE | 2017-08-26 14:26 | Diagnostic Imaging Report ---
EXAMINATION: DEXA scan. INDICATION: Osteopenia. TECHNIQUE: Bone mineral density estimated based on dual energy radiography over the lumbar spine and femoral necks, was performed. FINDINGS: The lumbar spine T-score is -1.4. T score over the left femoral neck is -1.9 and on the right side is -1. IMPRESSION: Osteopenia. Dictated by: Dictated on workstation # [id number]
== END ==
LOC: RAD 11:29
PROVIDERS: ATTEND Physician Assistant Medical
DX: Z13.820 Encounter for screening for osteoporosis (principal); M85.852 Other specified disorders of bone density and structure, left thigh; M85.88 Other specified disorders of bone density and structure, other site
CPT/HCPCS: 77080

== ENCOUNTER 2017-09-21 10:51 | Outpatient (RCR) | payer MEDICARE, MEDICAID ==
[2017-06-29 11:03] LABS: BASOPHILS % (AUTO) 0 % (0-10); EOSINOPHILS # (AUTO) 0.2 10^3/uL (0.0-0.3); EOSINOPHILS % (AUTO) 3 % (0-10); HEMATOCRIT 38 % (35-52); HEMOGLOBIN 12.1 G/DL (11.5-16.0); LYMPHOCYTES # (AUTO) 1.5 X 10^3 (1.0-4.0); LYMPHOCYTES % (AUTO) 28 % (12-44); MEAN CORPUSCULAR HEMOGLOBIN 30 PG (25-34); MEAN CORPUSCULAR HGB CONC 32 G/DL (32-36); MEAN CORPUSCULAR VOLUME 92 FL (80-99); MEAN PLATELET VOLUME 9.4 FL (7.4-10.4); MONOCYTES # (AUTO) 0.5 X 10^3 (0.0-1.0); MONOCYTES % (AUTO) 9 % (0-12); NEUTROPHILS # (AUTO) 3.2 X 10^3 (1.8-7.8); NEUTROPHILS % (AUTO) 59 % (42-75); PLATELET COUNT 175 10^3/uL (130-400); RED BLOOD COUNT 4.09 10^6/uL (4.35-5.85); RED CELL DISTRIBUTION WIDTH 13.7 % (10.0-14.5); WHITE BLOOD COUNT 5.3 10^3/uL (4.3-11.0)
[2017-06-29 11:22] LABS: ALBUMIN 3.8 GM/DL (3.2-4.5); BILIRUBIN,TOTAL 0.4 MG/DL (0.1-1.0); CALCIUM 8.8 MG/DL (8.5-10.1); CREATININE SERUM 1.32 MG/DL (0.60-1.30); POTASSIUM 4.1 MMOL/L (3.6-5.0); TOTAL PROTEIN 7.2 GM/DL (6.4-8.2)
[2017-09-21 11:21] LABS: BASOPHILS % (AUTO) 0 % (0-10); EOSINOPHILS # (AUTO) 0.2 10^3/uL (0.0-0.3); EOSINOPHILS % (AUTO) 3 % (0-10); HEMATOCRIT 36 % (35-52); HEMOGLOBIN 12.1 G/DL (11.5-16.0); LYMPHOCYTES # (AUTO) 1.3 X 10^3 (1.0-4.0); LYMPHOCYTES % (AUTO) 26 % (12-44); MEAN CORPUSCULAR HEMOGLOBIN 31 PG (25-34); MEAN CORPUSCULAR HGB CONC 34 G/DL (32-36); MEAN CORPUSCULAR VOLUME 91 FL (80-99); MEAN PLATELET VOLUME 9.1 FL (7.4-10.4); MONOCYTES # (AUTO) 0.4 X 10^3 (0.0-1.0); MONOCYTES % (AUTO) 7 % (0-12); NEUTROPHILS # (AUTO) 3.2 X 10^3 (1.8-7.8); NEUTROPHILS % (AUTO) 64 % (42-75); PLATELET COUNT 153 10^3/uL (130-400); RED BLOOD COUNT 3.93 10^6/uL (4.35-5.85); RED CELL DISTRIBUTION WIDTH 14.4 % (10.0-14.5)
[2017-09-21 11:42] LABS: ALBUMIN 3.8 GM/DL (3.2-4.5); BILIRUBIN,TOTAL 0.6 MG/DL (0.1-1.0); CALCIUM 8.8 MG/DL (8.5-10.1); CREATININE SERUM 1.4 MG/DL (0.60-1.30); POTASSIUM 3.7 MMOL/L (3.6-5.0); TOTAL PROTEIN 6.8 GM/DL (6.4-8.2)
== END 2017-09-27 | disposition home or self-care (01) ==
LOC: ONC 10:51
PROVIDERS: ATTEND Internal Medicine Hematology & Oncology
DX: C56.2 Malignant neoplasm of left ovary (principal); C55 Malignant neoplasm of uterus, part unspecified; C79.89 Secondary malignant neoplasm of other specified sites; C78.5 Secondary malignant neoplasm of large intestine and rectum; C78.6 Secondary malignant neoplasm of retroperitoneum and peritoneum; Z85.3 Personal history of malignant neoplasm of breast; K21.0 Gastro-esophageal reflux disease with esophagitis; K44.9 Diaphragmatic hernia without obstruction or gangrene; D50.0 Iron deficiency anemia secondary to blood loss (chronic); D64.81 Anemia due to antineoplastic chemotherapy; D63.1 Anemia in chronic kidney disease; N18.9 Chronic kidney disease, unspecified; I25.10 Atherosclerotic heart disease of native coronary artery without angina pectoris; Z95.5 Presence of coronary angioplasty implant and graft; Z79.02 Long term (current) use of antithrombotics/antiplatelets; Z79.82 Long term (current) use of aspirin; Z92.21 Personal history of antineoplastic chemotherapy
CPT/HCPCS: 36415; 36591; 80053; 85025; 86304

== ENCOUNTER → 2017-10-06 | Outpatient (CLI) | payer MEDICARE, MEDICAID ==
[2017-10-06 11:34] LABS: HEMOGLOBIN 13.6 G/DL (11.5-16.0); MEAN PLATELET VOLUME 9.5 FL (7.4-10.4); RED BLOOD COUNT 4.45 10^6/uL (4.35-5.85); RED CELL DISTRIBUTION WIDTH 14.1 % (10.0-14.5); WHITE BLOOD COUNT 5.8 10^3/uL (4.3-11.0)
[2017-10-06 11:54] LABS: ALBUMIN 4.1 GM/DL (3.2-4.5); CALCIUM 9.3 MG/DL (8.5-10.1); CREATININE SERUM 1.38 MG/DL (0.60-1.30); MAGNESIUM 2.1 MG/DL (1.8-2.4); PHOSPHORUS 3.3 MG/DL (2.3-4.7); POTASSIUM 4.5 MMOL/L (3.6-5.0)
== END ==
LOC: LAB 11:10
PROVIDERS: ATTEND Nurse Practitioner
DX: E78.5 Hyperlipidemia, unspecified (principal); I13.10 Hypertensive heart and chronic kidney disease without heart failure, with stage 1 through stage 4 chronic kidney disease, or unspecified chronic kidney disease; D63.1 Anemia in chronic kidney disease; N18.4 Chronic kidney disease, stage 4 (severe); E87.2 Acidosis; N25.81 Secondary hyperparathyroidism of renal origin; R73.01 Impaired fasting glucose; I70.1 Atherosclerosis of renal artery; E46 Unspecified protein-calorie malnutrition; R80.9 Proteinuria, unspecified; E87.3 Alkalosis; E83.42 Hypomagnesemia; E55.9 Vitamin D deficiency, unspecified
CPT/HCPCS: 36415; 80061; 80069; 82570; 83735; 84156; 85027

== ENCOUNTER → 2017-12-22 | Outpatient (CLI) | payer MEDICARE, MEDICAID ==
--- NOTE | 2017-12-22 14:44 | Diagnostic Imaging Report ---
INDICATION: Routine screening. COMPARISON: 12/21/2016 and 11/15/2015. TECHNIQUE: Screening digital mammography was performed bilaterally with a Computer Aided Detection (CAD) system. FINDINGS: Scattered fibroglandular densities are identified bilaterally. Postsurgical changes are identified in the upper-outer right breast with multiple surgical clips and benign calcifications present. There is a new cluster of microcalcifications in the right breast seen on the CC view at the nipple line anterior depth. Additional views are recommended. Otherwise, the breasts appear stable. There are scattered benign calcifications. No spiculated mass is seen. The axillae are unremarkable. IMPRESSION: Emerging cluster of microcalcifications in the right breast anterior depth at the nipple line, as described on the CC view. Magnification and ML views are recommended for further evaluation. ACR BI-RADS Category 0: Incomplete. (Needs additional imaging evaluation). Result letter will be mailed to the patient. Note: At least 10% of breast cancer is not imaged by mammography. Dictated by: Dictated on workstation # [id number]
== END ==
LOC: RAD 11:15
PROVIDERS: ATTEND Internal Medicine Hematology & Oncology
DX: Z12.31 Encounter for screening mammogram for malignant neoplasm of breast (principal); R92.0 Mammographic microcalcification found on diagnostic imaging of breast
CPT/HCPCS: 77067

== ENCOUNTER → 2018-01-13 | Outpatient (CLI) | payer MEDICARE, MEDICAID ==
--- NOTE | 2018-01-13 09:49 | Diagnostic Imaging Report ---
Indication: Right breast calcifications. Patient presents for additional views. Comparison: Correlation is made with prior screening mammogram from 12/22/2017. 2-D and 3-D unilateral right diagnostic mammography was performed including magnification and 90 degree lateral views. Postsurgical changes in the upper outer right breast again noted with multiple surgical clips. There are diffuse benign calcifications. Calcifications noted in the retroareolar right breast on the CC view appeared to be benign. These appear to be punctate. No associated soft tissue mass is seen. Impression: BI-RADS 2 Benign-appearing opacifications retroareolar right breast. Patient may return to routine annual screening mammography. ACR BI-RADS Category 2: Benign findings. Result letter will be mailed to the patient. Note: At least 10% of breast cancer is not imaged by mammography. Dictated by: Dictated on workstation # [id number]
== END ==
LOC: RAD 08:52
PROVIDERS: ATTEND Internal Medicine Hematology & Oncology
DX: R92.1 Mammographic calcification found on diagnostic imaging of breast (principal)

== ENCOUNTER → 2018-01-17 | Outpatient (CLI) | payer MEDICARE, MEDICAID ==
[~2018-01-17] MED LIST changes: +BARIUM SUSPENSION 2.1% (VANILLA SILQ) 450 ML PO ONE; +IOHEXOL 350 MG/ML 100 ML (OMNIPAQUE 350) VIAL IV ONE; +NS 100 ML (IVPB) BAG IV ONE; +NS 250 ML (IVPB) BAG IV ONE
--- NOTE | 2018-01-17 13:08 | Diagnostic Imaging Report ---
PROCEDURE: CT chest, abdomen, and pelvis with contrast. TECHNIQUE: Multiple contiguous axial images were obtained through the chest, abdomen, and pelvis after the administration of intravenous contrast. DATE: January 17, 2018. COMPARISON: CT chest, abdomen, and pelvis September 09, 2016. INDICATION: 67-year-old female, history of ovarian and breast cancer. FINDINGS: In the superior aspect of the right lower lobe on axial image 21, there is a noncalcified pulmonary nodule measuring 11.3 mm in size, which is new since September 09, 2016. In the left lower lobe on axial image 32, there is a new 8.7 mm noncalcified pulmonary nodule. There are mild peripheral dependent opacities in the left lower lobe likely relating to atelectasis. There is no additional focal airspace consolidation. There is no pneumothorax. There is no pleural effusion. The central airways are patent. There is no identified large central embolus. There is limited evaluation for segmental and subsegmental pulmonary emboli given the timing of the contrast bolus. The heart is not enlarged. There is no pericardial effusion. There are atherosclerotic calcifications. There is no identified abnormally enlarged axillary, hilar, or mediastinal lymph node which meets CT size criteria for adenopathy. There are surgical clips in the right breast. The liver appears diffusely low in attenuation suggesting diffuse fatty infiltration of the liver. There is a lobulated hypervascular focus in the left lobe of the liver peripherally located on axial image 39, which measures up to approximately 2.1 x 1.5 cm in size. This is not seen on comparison exam. There is a wedge-shaped area of altered enhancement of the left lobe of the liver on axial image 51 and additional sequential images. The main, right, and left portal veins do appear patent. There is a gallstone. There are no findings to suggest acute cholecystitis. There is no intrahepatic or extrahepatic bile duct dilation. The main pancreatic duct is not abnormally dilated. Unremarkable appearance of the pancreatic parenchyma. The spleen is normal in size. The adrenal glands are unremarkable. Unremarkable appearance of the renal parenchyma. The urinary collecting systems are not distended. There is no identified renal or ureteral stone. The urinary bladder is unremarkable in appearance. The uterus is not seen and may be surgically absent. There is diverticulosis without evidence of acute diverticulitis. The appendix is well seen on axial image 78 and adjacent sequential images. The appendix is normal. There is contrast material in the distal esophagus, which may relate to slow transit and/or gastroesophageal reflux. There is a duodenal diverticulum near the junction of the second and third portions of duodenum measuring approximately 1.7 x 1.5 cm in size. There is no free intraperitoneal air. There is no drainable fluid collection. There is no free pelvic fluid. There are atherosclerotic calcifications. There is no identified abnormally enlarged lymph node within the abdomen or pelvis, which meets CT size criteria for adenopathy. There is a small fat-containing paraumbilical hernia. There are degenerative changes of the spine. There is no identified bone lesion concerning for bone metastasis. There is no otherwise identified acute bony abnormality. IMPRESSION: CT CHEST, ABDOMEN, AND PELVIS. 1. New 11 mm right upper lobe and 9 mm left lower lobe pulmonary nodules since September 09, 2016. These are not specific but concerning for metastatic disease. 2. Peripheral hypervascular foci in the left lobe of the liver, which are not identified previously. These are indeterminate. No liver lesion in particular has appearance that may at least partially reflect perfusion-related phenomenon. Recommend dedicated liver mass protocol MRI abdomen with and without contrast for further assessment with usage of Eovist as the contrast agent. 3. Diffuse fatty infiltration of the liver. Dictated by: Dictated on workstation # [id number]
== END ==
LOC: RAD 11:34
PROVIDERS: ATTEND Internal Medicine Hematology & Oncology
DX: C56.1 Malignant neoplasm of right ovary (principal); D05.11 Intraductal carcinoma in situ of right breast; K76.0 Fatty (change of) liver, not elsewhere classified; R91.8 Other nonspecific abnormal finding of lung field
CPT/HCPCS: 71260; 74177

== ENCOUNTER → 2018-02-02 | Outpatient (CLI) | payer MEDICARE, MEDICAID ==
[~2018-02-02] VITALS: Ht 165.1 cm; Wt 95.3 kg
[2018-02-02] VITALS (17 sets, daily range): BP systolic 117–179; BP diastolic 70–91
[~2018-02-02] MED LIST changes: -BARIUM SUSPENSION 2.1% (VANILLA SILQ) 450 ML PO ONE; +HYDROcodone/APAP 5 MG/325 MG (LORTAB) TAB PO PRN; -IOHEXOL 350 MG/ML 100 ML (OMNIPAQUE 350) VIAL IV ONE; +LIDOCAINE 1% INJ 20 ML 20 ML VIAL ONE; +LIDOCAINE 1% INJ 50 ML (XYLOCAINE) VIAL IJ ONE; +MIDAZOLAM 2 MG/2 ML (VERSED) VIAL IVP PRN; +MIDAZOLAM 2 MG/2 ML (VERSED) VIAL ONE; -NS 100 ML (IVPB) BAG IV ONE; -NS 250 ML (IVPB) BAG IV ONE; +NS IV 1000 ML 1,000 ML IV STA; +NS IV 1000 ML 1,000 ML ONE; +fentaNYL INJECTION 100 MCG/2 ML AMP IVP PRN; +fentaNYL INJECTION 100 MCG/2 ML AMP ONE
[2018-02-02 08:25] LABS: MEAN PLATELET VOLUME 9.5 FL (7.4-10.4); RED BLOOD COUNT 4.38 10^6/uL (4.35-5.85); RED CELL DISTRIBUTION WIDTH 14.6 % (10.0-14.5)
[2018-02-02 08:41] LABS: INR 0.9 (0.8-1.4); PROTHROMBIN TIME PATIENT 12.4 SEC (12.2-14.7)
--- NOTE | 2018-02-02 10:22 | Pre-Op Note & Conscious Sedat ---
Pre-Operative Progress Note H&P Reviewed The H&P was reviewed, patient examined and no changes noted. Date H&P Reviewed: February 02, 2018 Time H&P Reviewed: 08:00 Pre-Op Diagnosis: Right Lung mass Conscious Sedation Pre-Proced Time Reviewed: 08:00 ASA Class: 2 Airway Mallampati Classification: ([place] appropriate class) I. II. III, IV Lungs Heart ASA score ASA 1: a normal healthy patient ASA 2: a patient with a mild systemic disease (mid diabetes, controlled hypertension, obesity ASA 3: a patient with a severe systemic disease that limits activity (angina , COPD, prior Myocardial infarction) ASA 4: a patient with an incapacitating disease that is a constant threat to life (CHF, renal failure) ASA 5: a moribund patient not expected to survive 24 hrs. (ruptured aneurysm) ASA 6: a declared brain patient whose organs are being harvested. For emergent operations, add the letter E after the classification Grade 1 Sedation Plan: Analgesia, Amnesia, Plan communicated to team members, Discussed options with patient/fam, Discussed risks with patient/fam Note The patient is an appropriate candidate to undergo the planned procedure, sedation, and anesthesia. The patient immediately re-assessed prior to indication. BLAIRE REYNA MD February 02, 2018 10:22
--- NOTE | 2018-02-02 10:29 | Diagnostic Imaging Report ---
Indication: Bilateral lung nodules. Patient presents for CT-guided biopsy The patient was brought to the CT suite and placed on the table in the [id number] decubitus position. Axial imaging through the chest was performed to evaluate appropriate entry site. The skin of the right posterior thorax was then prepped and draped in the usual sterile fashion. A small amount of 1% lidocaine was utilized for local anesthesia. Procedure was performed utilizing conscious sedation with radiology nursing and constant monitoring. The patient received a total of 1 mg of Versed intravenously and 50 mcg of fentanyl intravenously. Sedation time is approximately 13 minutes. A 20-gauge coaxial needle was advanced, placed with its tip along the margin of the nodule in the right lower lobe. Total of 3 core biopsies were obtained. Blood patch was administered during removal of the needle. Hemostasis was obtained using manual compression. Followup imaging does show a small amount of hemorrhage at the biopsy site. No pneumothorax is identified. Impression: CT-guided biopsy of the right lower lobe mass. Dictated by: Dictated on workstation # [id number]
--- NOTE | 2018-02-02 11:07 | Diagnostic Imaging Report ---
Indication: Right lung biopsy. Time of exam: 10:48 AM Correlation is made with prior chest from 06/18/2016. Left chest wall port is in place. No pneumothorax is seen status post right lung biopsy. No effusion. Lungs appear to be clear. Impression: No evidence of pneumothorax status post right lung biopsy. Dictated by: Dictated on workstation # [id number]
== END ==
LOC: SDC 07:32
PROVIDERS: ATTEND Internal Medicine Hematology & Oncology
DX: R91.1 Solitary pulmonary nodule (principal); D05.11 Intraductal carcinoma in situ of right breast; C56.1 Malignant neoplasm of right ovary
CPT/HCPCS: 36415; 71045; 77012; 85027; 85610; 85730; 86300; 88305; 88341; 88342; 88344; 99156

== ENCOUNTER 2018-03-03 13:59 | Outpatient (RCR) | payer MEDICARE, MEDICAID ==
[2018-01-04 13:37] LABS: BASOPHILS % (AUTO) 0 % (0-10); EOSINOPHILS # (AUTO) 0.1 10^3/uL (0.0-0.3); EOSINOPHILS % (AUTO) 2 % (0-10); HEMATOCRIT 37 % (35-52); HEMOGLOBIN 12.2 G/DL (11.5-16.0); LYMPHOCYTES # (AUTO) 1.6 X 10^3 (1.0-4.0); LYMPHOCYTES % (AUTO) 28 % (12-44); MEAN CORPUSCULAR HGB CONC 33 G/DL (32-36); MEAN CORPUSCULAR VOLUME 90 FL (80-99); MEAN PLATELET VOLUME 9.4 FL (7.4-10.4); MONOCYTES # (AUTO) 0.5 X 10^3 (0.0-1.0); MONOCYTES % (AUTO) 9 % (0-12); NEUTROPHILS # (AUTO) 3.4 X 10^3 (1.8-7.8); NEUTROPHILS % (AUTO) 61 % (42-75); PLATELET COUNT 195 10^3/uL (130-400); RED BLOOD COUNT 4.14 10^6/uL (4.35-5.85); RED CELL DISTRIBUTION WIDTH 14.6 % (10.0-14.5); WHITE BLOOD COUNT 5.6 10^3/uL (4.3-11.0)
[2018-01-04 13:38] LABS: MEAN CORPUSCULAR HEMOGLOBIN 29 PG (25-34)
[2018-01-04 13:56] LABS: BILIRUBIN,TOTAL 0.4 MG/DL (0.1-1.0); CALCIUM 9.1 MG/DL (8.5-10.1); CREATININE SERUM 1.39 MG/DL (0.60-1.30); POTASSIUM 4.3 MMOL/L (3.6-5.0); TOTAL PROTEIN 7.4 GM/DL (6.4-8.2)
[2018-02-17 11:09] LABS: BASOPHILS % (AUTO) 0 % (0-10); EOSINOPHILS % (AUTO) 0 % (0-10); HEMATOCRIT 37 % (35-52); HEMOGLOBIN 12.4 G/DL (11.5-16.0); LYMPHOCYTES # (AUTO) 0.9 X 10^3 (1.0-4.0); LYMPHOCYTES % (AUTO) 14 % (12-44); MEAN CORPUSCULAR HEMOGLOBIN 30 PG (25-34); MEAN CORPUSCULAR HGB CONC 34 G/DL (32-36); MEAN CORPUSCULAR VOLUME 89 FL (80-99); MEAN PLATELET VOLUME 9.6 FL (7.4-10.4); MONOCYTES % (AUTO) 1 % (0-12); NEUTROPHILS # (AUTO) 5.5 X 10^3 (1.8-7.8); NEUTROPHILS % (AUTO) 85 % (42-75); PLATELET COUNT 175 10^3/uL (130-400); RED BLOOD COUNT 4.15 10^6/uL (4.35-5.85); RED CELL DISTRIBUTION WIDTH 14.5 % (10.0-14.5); WHITE BLOOD COUNT 6.4 10^3/uL (4.3-11.0)
[2018-02-17 11:30] LABS: ALBUMIN 3.9 GM/DL (3.2-4.5); BILIRUBIN,TOTAL 0.4 MG/DL (0.1-1.0); CALCIUM 8.9 MG/DL (8.5-10.1); CREATININE SERUM 1.27 MG/DL (0.60-1.30); POTASSIUM 4.1 MMOL/L (3.6-5.0); TOTAL PROTEIN 7.1 GM/DL (6.4-8.2)
[2018-02-24 13:28] LABS: BASOPHILS % (AUTO) 0 % (0-10); EOSINOPHILS # (AUTO) 0.1 10^3/uL (0.0-0.3); EOSINOPHILS % (AUTO) 5 % (0-10); HEMATOCRIT 35 % (35-52); HEMOGLOBIN 11.7 G/DL (11.5-16.0); LYMPHOCYTES % (AUTO) 79 % (12-44); MEAN CORPUSCULAR HEMOGLOBIN 31 PG (25-34); MEAN CORPUSCULAR HGB CONC 34 G/DL (32-36); MEAN CORPUSCULAR VOLUME 90 FL (80-99); MEAN PLATELET VOLUME 10.8 FL (7.4-10.4); MONOCYTES # (AUTO) 0.1 X 10^3 (0.0-1.0); MONOCYTES % (AUTO) 5 % (0-12); NEUTROPHILS # (AUTO) 0.1 X 10^3 (1.8-7.8); NEUTROPHILS % (AUTO) 10 % (42-75); PLATELET COUNT 102 10^3/uL (130-400); RED BLOOD COUNT 3.84 10^6/uL (4.35-5.85); RED CELL DISTRIBUTION WIDTH 14.1 % (10.0-14.5)
[2018-02-24 13:32] LABS: WHITE BLOOD COUNT 1.3 10^3/uL (4.3-11.0)
[2018-02-24 13:46] LABS: ALBUMIN 3.8 GM/DL (3.2-4.5); BILIRUBIN,TOTAL 0.5 MG/DL (0.1-1.0); CALCIUM 8.9 MG/DL (8.5-10.1); CREATININE SERUM 1.36 MG/DL (0.60-1.30); POTASSIUM 3.8 MMOL/L (3.6-5.0); TOTAL PROTEIN 7.2 GM/DL (6.4-8.2)
[~2018-03-03] VITALS: Ht 147.3 cm; Wt 97.5 kg
[~2018-03-03 13:59] MED LIST changes: +CARBOPLATIN 300 MG in D5W 50 ML IV(CANCER CTR) 50 ML IV SCH; +FAMOTIDINE 20MG/2ML IV (CANCER CTR) IV SCH; -HYDROcodone/APAP 5 MG/325 MG (LORTAB) TAB PO PRN; -LIDOCAINE 1% INJ 20 ML 20 ML VIAL ONE; -LIDOCAINE 1% INJ 50 ML (XYLOCAINE) VIAL IJ ONE; -MIDAZOLAM 2 MG/2 ML (VERSED) VIAL IVP PRN; -MIDAZOLAM 2 MG/2 ML (VERSED) VIAL ONE; +NORMAL SALINE IV SCH; +NS IV 1000 ML (CANCER CTR) IV SCH; -NS IV 1000 ML 1,000 ML IV STA; -NS IV 1000 ML 1,000 ML ONE; +NS IV 500 ML (CANCER CENTER) 500 ML ONE; +ONDANSETRON MDV (CANCER CENTER 16 MG, DEXAMETHASONE PF INJ (CANCER C 10 MG in NS (IVPB)... IV SCH; +PACLITAXEL IV SCH; +diphenhydrAMINE 25 MG TAB (BENADRYL) CANCER CENTER PO SCH; -fentaNYL INJECTION 100 MCG/2 ML AMP IVP PRN; -fentaNYL INJECTION 100 MCG/2 ML AMP ONE
[2018-03-03 14:30] LABS: BASOPHILS % (AUTO) 0 % (0-10); EOSINOPHILS % (AUTO) 0 % (0-10); HEMATOCRIT 32 % (35-52); HEMOGLOBIN 10.5 G/DL (11.5-16.0); LYMPHOCYTES # (AUTO) 1.3 X 10^3 (1.0-4.0); LYMPHOCYTES % (AUTO) 18 % (12-44); MEAN CORPUSCULAR HGB CONC 33 G/DL (32-36); MEAN CORPUSCULAR VOLUME 89 FL (80-99); MONOCYTES # (AUTO) 0.7 X 10^3 (0.0-1.0); MONOCYTES % (AUTO) 9 % (0-12); NEUTROPHILS # (AUTO) 5.4 X 10^3 (1.8-7.8); NEUTROPHILS % (AUTO) 73 % (42-75); PLATELET COUNT 195 10^3/uL (130-400); RED BLOOD COUNT 3.56 10^6/uL (4.35-5.85); RED CELL DISTRIBUTION WIDTH 14.5 % (10.0-14.5); WHITE BLOOD COUNT 7.4 10^3/uL (4.3-11.0)
[2018-03-03 14:31] LABS: MEAN CORPUSCULAR HEMOGLOBIN 29 PG (25-34)
[2018-03-03 14:48] LABS: ALBUMIN 3.3 GM/DL (3.2-4.5); BILIRUBIN,TOTAL 0.6 MG/DL (0.1-1.0); CREATININE SERUM 1.13 MG/DL (0.60-1.30); POTASSIUM 3.4 MMOL/L (3.6-5.0); TOTAL PROTEIN 6.7 GM/DL (6.4-8.2)
[2018-03-11 10:02] LABS: BASOPHILS % (AUTO) 0 % (0-10); EOSINOPHILS % (AUTO) 0 % (0-10); HEMATOCRIT 36 % (35-52); LYMPHOCYTES % (AUTO) 18 % (12-44); MEAN CORPUSCULAR HEMOGLOBIN 30 PG (25-34); MEAN CORPUSCULAR HGB CONC 33 G/DL (32-36); MEAN CORPUSCULAR VOLUME 91 FL (80-99); MEAN PLATELET VOLUME 9.7 FL (7.4-10.4); MONOCYTES % (AUTO) 1 % (0-12); NEUTROPHILS # (AUTO) 4.6 X 10^3 (1.8-7.8); NEUTROPHILS % (AUTO) 82 % (42-75); PLATELET COUNT 289 10^3/uL (130-400); RED BLOOD COUNT 4.01 10^6/uL (4.35-5.85); RED CELL DISTRIBUTION WIDTH 14.4 % (10.0-14.5); WHITE BLOOD COUNT 5.7 10^3/uL (4.3-11.0)
[2018-03-11 10:28] LABS: ALBUMIN 3.6 GM/DL (3.2-4.5); BILIRUBIN,TOTAL 0.5 MG/DL (0.1-1.0); CALCIUM 9.3 MG/DL (8.5-10.1); CREATININE SERUM 1.2 MG/DL (0.60-1.30); POTASSIUM 4.5 MMOL/L (3.6-5.0); TOTAL PROTEIN 7.6 GM/DL (6.4-8.2)
== END 2018-03-11 08:35 | disposition home or self-care (01) ==
LOC: ONC 13:59
PROVIDERS: ATTEND Internal Medicine Hematology & Oncology
DX: Z51.11 Encounter for antineoplastic chemotherapy (principal); C56.2 Malignant neoplasm of left ovary; C55 Malignant neoplasm of uterus, part unspecified; C79.89 Secondary malignant neoplasm of other specified sites; C78.5 Secondary malignant neoplasm of large intestine and rectum; C78.6 Secondary malignant neoplasm of retroperitoneum and peritoneum; Z85.3 Personal history of malignant neoplasm of breast; K21.0 Gastro-esophageal reflux disease with esophagitis; K44.9 Diaphragmatic hernia without obstruction or gangrene; D50.0 Iron deficiency anemia secondary to blood loss (chronic); D64.81 Anemia due to antineoplastic chemotherapy; D63.1 Anemia in chronic kidney disease; N18.9 Chronic kidney disease, unspecified; I25.10 Atherosclerotic heart disease of native coronary artery without angina pectoris; Z95.5 Presence of coronary angioplasty implant and graft; Z79.02 Long term (current) use of antithrombotics/antiplatelets; Z79.82 Long term (current) use of aspirin; Z92.21 Personal history of antineoplastic chemotherapy
CPT/HCPCS: 36415; 36591; 80053; 85025; 86300; 86304; 96360; 96375; 96413; 96415; 96417; 99213

== ENCOUNTER 2018-03-24 12:10 | Outpatient (RCR) | payer MEDICARE, MEDICAID ==
[2018-03-17 14:47] LABS: BASOPHILS % (AUTO) 0 % (0-10); EOSINOPHILS # (AUTO) 0.1 10^3/uL (0.0-0.3); EOSINOPHILS % (AUTO) 2 % (0-10); HEMATOCRIT 34 % (35-52); HEMOGLOBIN 10.9 G/DL (11.5-16.0); LYMPHOCYTES # (AUTO) 1.8 X 10^3 (1.0-4.0); LYMPHOCYTES % (AUTO) 63 % (12-44); MEAN CORPUSCULAR HEMOGLOBIN 29 PG (25-34); MEAN CORPUSCULAR HGB CONC 32 G/DL (32-36); MEAN CORPUSCULAR VOLUME 91 FL (80-99); MEAN PLATELET VOLUME 10.7 FL (7.4-10.4); MONOCYTES # (AUTO) 0.1 X 10^3 (0.0-1.0); MONOCYTES % (AUTO) 2 % (0-12); NEUTROPHILS % (AUTO) 34 % (42-75); PLATELET COUNT 157 10^3/uL (130-400); RED BLOOD COUNT 3.74 10^6/uL (4.35-5.85); RED CELL DISTRIBUTION WIDTH 14.5 % (10.0-14.5); WHITE BLOOD COUNT 2.9 10^3/uL (4.3-11.0)
[2018-03-17 15:06] LABS: CREATININE SERUM 1.18 MG/DL (0.60-1.30)
[~2018-03-24] VITALS: Ht 147.3 cm; Wt 92.5 kg
[~2018-03-24 12:10] MED LIST changes: +ALTEPLASE 2 MG (CATHFLO) CANCER CENTER IV ONE; -NS IV 500 ML (CANCER CENTER) 500 ML ONE
[2018-03-24 12:37] LABS: BASOPHILS % (AUTO) 0 % (0-10); EOSINOPHILS % (AUTO) 1 % (0-10); HEMATOCRIT 30 % (35-52); HEMOGLOBIN 9.7 G/DL (11.5-16.0); LYMPHOCYTES % (AUTO) 31 % (12-44); MEAN CORPUSCULAR HEMOGLOBIN 30 PG (25-34); MEAN CORPUSCULAR HGB CONC 33 G/DL (32-36); MEAN CORPUSCULAR VOLUME 91 FL (80-99); MEAN PLATELET VOLUME 9.9 FL (7.4-10.4); MONOCYTES # (AUTO) 0.6 X 10^3 (0.0-1.0); MONOCYTES % (AUTO) 19 % (0-12); NEUTROPHILS # (AUTO) 1.5 X 10^3 (1.8-7.8); NEUTROPHILS % (AUTO) 49 % (42-75); PLATELET COUNT 150 10^3/uL (130-400); RED BLOOD COUNT 3.26 10^6/uL (4.35-5.85); RED CELL DISTRIBUTION WIDTH 16.3 % (10.0-14.5); WHITE BLOOD COUNT 3.1 10^3/uL (4.3-11.0)
[2018-03-24 12:51] LABS: CALCIUM 8.8 MG/DL (8.5-10.1); CREATININE SERUM 1.1 MG/DL (0.60-1.30); POTASSIUM 3.4 MMOL/L (3.6-5.0)
[2018-03-31 10:15] LABS: BASOPHILS % (AUTO) 0 % (0-10); EOSINOPHILS % (AUTO) 0 % (0-10); HEMATOCRIT 33 % (35-52); HEMOGLOBIN 10.5 G/DL (11.5-16.0); LYMPHOCYTES # (AUTO) 1.4 X 10^3 (1.0-4.0); LYMPHOCYTES % (AUTO) 24 % (12-44); MEAN CORPUSCULAR HEMOGLOBIN 29 PG (25-34); MEAN CORPUSCULAR HGB CONC 32 G/DL (32-36); MEAN CORPUSCULAR VOLUME 92 FL (80-99); MEAN PLATELET VOLUME 10.2 FL (7.4-10.4); MONOCYTES # (AUTO) 0.1 X 10^3 (0.0-1.0); MONOCYTES % (AUTO) 1 % (0-12); NEUTROPHILS # (AUTO) 4.6 X 10^3 (1.8-7.8); NEUTROPHILS % (AUTO) 76 % (42-75); PLATELET COUNT 202 10^3/uL (130-400); RED CELL DISTRIBUTION WIDTH 16.9 % (10.0-14.5); WHITE BLOOD COUNT 6.1 10^3/uL (4.3-11.0)
[2018-03-31 10:33] LABS: ALBUMIN 3.6 GM/DL (3.2-4.5); BILIRUBIN,TOTAL 0.6 MG/DL (0.1-1.0); CALCIUM 9.5 MG/DL (8.5-10.1); CREATININE SERUM 1.28 MG/DL (0.60-1.30); POTASSIUM 4.5 MMOL/L (3.6-5.0); TOTAL PROTEIN 7.4 GM/DL (6.4-8.2)
== END 2018-03-31 15:20 | disposition home or self-care (01) ==
LOC: ONC 12:10
PROVIDERS: ATTEND Internal Medicine Hematology & Oncology
DX: Z51.11 Encounter for antineoplastic chemotherapy (principal); C56.2 Malignant neoplasm of left ovary; C55 Malignant neoplasm of uterus, part unspecified; C79.89 Secondary malignant neoplasm of other specified sites; C78.5 Secondary malignant neoplasm of large intestine and rectum; C78.6 Secondary malignant neoplasm of retroperitoneum and peritoneum; Z85.3 Personal history of malignant neoplasm of breast; K21.0 Gastro-esophageal reflux disease with esophagitis; K44.9 Diaphragmatic hernia without obstruction or gangrene; D50.0 Iron deficiency anemia secondary to blood loss (chronic); D64.81 Anemia due to antineoplastic chemotherapy; D63.1 Anemia in chronic kidney disease; N18.9 Chronic kidney disease, unspecified; I25.10 Atherosclerotic heart disease of native coronary artery without angina pectoris; Z95.5 Presence of coronary angioplasty implant and graft; Z79.02 Long term (current) use of antithrombotics/antiplatelets; Z79.82 Long term (current) use of aspirin; Z92.21 Personal history of antineoplastic chemotherapy
CPT/HCPCS: 36415; 36591; 36593; 80048; 80053; 85025; 96375; 96413; 96415; 96417

== ENCOUNTER → 2018-03-28 | Outpatient (CLI) | payer MEDICARE, MEDICAID ==
[~2018-03-28] MED LIST changes: -ALTEPLASE 2 MG (CATHFLO) CANCER CENTER IV ONE; -CARBOPLATIN 300 MG in D5W 50 ML IV(CANCER CTR) 50 ML IV SCH; -FAMOTIDINE 20MG/2ML IV (CANCER CTR) IV SCH; -NORMAL SALINE IV SCH; -NS IV 1000 ML (CANCER CTR) IV SCH; -ONDANSETRON MDV (CANCER CENTER 16 MG, DEXAMETHASONE PF INJ (CANCER C 10 MG in NS (IVPB)... IV SCH; -PACLITAXEL IV SCH; -diphenhydrAMINE 25 MG TAB (BENADRYL) CANCER CENTER PO SCH
[2018-03-28 12:37] LABS: BASOPHILS % (AUTO) 0 % (0-10); EOSINOPHILS % (AUTO) 0 % (0-10); HEMATOCRIT 31 % (35-52); HEMOGLOBIN 9.8 G/DL (11.5-16.0); LYMPHOCYTES # (AUTO) 1.3 X 10^3 (1.0-4.0); LYMPHOCYTES % (AUTO) 24 % (12-44); MEAN CORPUSCULAR HEMOGLOBIN 29 PG (25-34); MEAN CORPUSCULAR HGB CONC 32 G/DL (32-36); MEAN CORPUSCULAR VOLUME 92 FL (80-99); MEAN PLATELET VOLUME 9.8 FL (7.4-10.4); MONOCYTES # (AUTO) 0.6 X 10^3 (0.0-1.0); MONOCYTES % (AUTO) 12 % (0-12); NEUTROPHILS # (AUTO) 3.5 X 10^3 (1.8-7.8); NEUTROPHILS % (AUTO) 64 % (42-75); PLATELET COUNT 176 10^3/uL (130-400); RED BLOOD COUNT 3.33 10^6/uL (4.35-5.85); RED CELL DISTRIBUTION WIDTH 16.5 % (10.0-14.5); WHITE BLOOD COUNT 5.4 10^3/uL (4.3-11.0)
[2018-03-28 13:02] LABS: ALBUMIN 3.5 GM/DL (3.2-4.5); CALCIUM 9.1 MG/DL (8.5-10.1); CREATININE SERUM 1.18 MG/DL (0.60-1.30); MAGNESIUM 1.5 MG/DL (1.8-2.4); PHOSPHORUS 2.9 MG/DL (2.3-4.7)
== END ==
LOC: LAB 11:45
PROVIDERS: ATTEND Nurse Practitioner
DX: E55.9 Vitamin D deficiency, unspecified (principal); I12.9 Hypertensive chronic kidney disease with stage 1 through stage 4 chronic kidney disease, or unspecified chronic kidney disease; N18.4 Chronic kidney disease, stage 4 (severe); E87.2 Acidosis; E78.5 Hyperlipidemia, unspecified; N25.81 Secondary hyperparathyroidism of renal origin; R73.01 Impaired fasting glucose; I70.1 Atherosclerosis of renal artery; E66.9 Obesity, unspecified; E46 Unspecified protein-calorie malnutrition; D63.1 Anemia in chronic kidney disease; R80.9 Proteinuria, unspecified; E87.3 Alkalosis; E83.42 Hypomagnesemia
CPT/HCPCS: 36415; 80069; 82306; 82570; 83735; 83970; 84156; 85025

== ENCOUNTER 2018-04-14 12:23 | Outpatient (RCR) | payer MEDICARE, MEDICAID ==
[2018-04-07 12:46] LABS: BASOPHILS % (AUTO) 1 % (0-10); EOSINOPHILS % (AUTO) 2 % (0-10); HEMATOCRIT 29 % (35-52); HEMOGLOBIN 9.5 G/DL (11.5-16.0); LYMPHOCYTES # (AUTO) 1.1 X 10^3 (1.0-4.0); LYMPHOCYTES % (AUTO) 51 % (12-44); MEAN CORPUSCULAR HEMOGLOBIN 30 PG (25-34); MEAN CORPUSCULAR HGB CONC 33 G/DL (32-36); MEAN CORPUSCULAR VOLUME 91 FL (80-99); MEAN PLATELET VOLUME 11.5 FL (7.4-10.4); MONOCYTES # (AUTO) 0.1 X 10^3 (0.0-1.0); MONOCYTES % (AUTO) 4 % (0-12); NEUTROPHILS # (AUTO) 0.9 X 10^3 (1.8-7.8); NEUTROPHILS % (AUTO) 43 % (42-75); PLATELET COUNT 71 10^3/uL (130-400); RED BLOOD COUNT 3.13 10^6/uL (4.35-5.85); RED CELL DISTRIBUTION WIDTH 16.1 % (10.0-14.5); WHITE BLOOD COUNT 2.1 10^3/uL (4.3-11.0)
[2018-04-07 13:07] LABS: ALBUMIN 3.8 GM/DL (3.2-4.5); BILIRUBIN,TOTAL 0.7 MG/DL (0.1-1.0); CREATININE SERUM 1.26 MG/DL (0.60-1.30); POTASSIUM 3.8 MMOL/L (3.6-5.0); TOTAL PROTEIN 7.4 GM/DL (6.4-8.2)
[~2018-04-14 12:23] MED LIST changes: +CARBOPLATIN 300 MG in D5W 50 ML IV(CANCER CTR) 50 ML IV SCH; +FAMOTIDINE 20MG/2ML IV (CANCER CTR) IV SCH; +NORMAL SALINE IV SCH; +NS IV 1000 ML (CANCER CTR) IV SCH; +ONDANSETRON MDV (CANCER CENTER 16 MG, DEXAMETHASONE PF INJ (CANCER C 10 MG in NS (IVPB)... IV SCH; +PACLITAXEL IV SCH; +diphenhydrAMINE 25 MG TAB (BENADRYL) CANCER CENTER PO SCH
[2018-04-14 12:46] LABS: BASOPHILS % (AUTO) 0 % (0-10); EOSINOPHILS # (AUTO) 0.1 10^3/uL (0.0-0.3); EOSINOPHILS % (AUTO) 2 % (0-10); HEMATOCRIT 27 % (35-52); HEMOGLOBIN 8.7 G/DL (11.5-16.0); LYMPHOCYTES # (AUTO) 1.4 X 10^3 (1.0-4.0); LYMPHOCYTES % (AUTO) 37 % (12-44); MEAN CORPUSCULAR HEMOGLOBIN 30 PG (25-34); MEAN CORPUSCULAR HGB CONC 32 G/DL (32-36); MEAN CORPUSCULAR VOLUME 92 FL (80-99); MEAN PLATELET VOLUME 10.5 FL (7.4-10.4); MONOCYTES # (AUTO) 0.7 X 10^3 (0.0-1.0); MONOCYTES % (AUTO) 17 % (0-12); NEUTROPHILS # (AUTO) 1.7 X 10^3 (1.8-7.8); NEUTROPHILS % (AUTO) 44 % (42-75); PLATELET COUNT 137 10^3/uL (130-400); RED BLOOD COUNT 2.94 10^6/uL (4.35-5.85); RED CELL DISTRIBUTION WIDTH 18.4 % (10.0-14.5); WHITE BLOOD COUNT 3.8 10^3/uL (4.3-11.0)
[2018-04-14 13:09] LABS: ALBUMIN 3.4 GM/DL (3.2-4.5); BILIRUBIN,TOTAL 0.4 MG/DL (0.1-1.0); CALCIUM 8.9 MG/DL (8.5-10.1); CREATININE SERUM 1.21 MG/DL (0.60-1.30); POTASSIUM 3.8 MMOL/L (3.6-5.0); TOTAL PROTEIN 6.6 GM/DL (6.4-8.2)
[2018-04-21 10:38] LABS: BASOPHILS % (AUTO) 0 % (0-10); EOSINOPHILS % (AUTO) 0 % (0-10); HEMATOCRIT 30 % (35-52); HEMOGLOBIN 9.5 G/DL (11.5-16.0); LYMPHOCYTES # (AUTO) 1.1 X 10^3 (1.0-4.0); LYMPHOCYTES % (AUTO) 23 % (12-44); MEAN CORPUSCULAR HEMOGLOBIN 30 PG (25-34); MEAN CORPUSCULAR HGB CONC 32 G/DL (32-36); MEAN CORPUSCULAR VOLUME 93 FL (80-99); MEAN PLATELET VOLUME 9.9 FL (7.4-10.4); MONOCYTES # (AUTO) 0.1 X 10^3 (0.0-1.0); MONOCYTES % (AUTO) 3 % (0-12); NEUTROPHILS # (AUTO) 3.6 X 10^3 (1.8-7.8); NEUTROPHILS % (AUTO) 75 % (42-75); PLATELET COUNT 166 10^3/uL (130-400); RED CELL DISTRIBUTION WIDTH 19.2 % (10.0-14.5); WHITE BLOOD COUNT 4.8 10^3/uL (4.3-11.0)
[2018-04-21 10:54] LABS: ALBUMIN 3.7 GM/DL (3.2-4.5); BILIRUBIN,TOTAL 0.7 MG/DL (0.1-1.0); CALCIUM 9.2 MG/DL (8.5-10.1); CREATININE SERUM 1.18 MG/DL (0.60-1.30); POTASSIUM 3.9 MMOL/L (3.6-5.0); TOTAL PROTEIN 6.9 GM/DL (6.4-8.2)
== END 2018-04-21 09:38 | disposition home or self-care (01) ==
LOC: ONC 12:23
PROVIDERS: ATTEND Internal Medicine Hematology & Oncology
DX: C56.2 Malignant neoplasm of left ovary (principal); C55 Malignant neoplasm of uterus, part unspecified; C79.89 Secondary malignant neoplasm of other specified sites; C78.5 Secondary malignant neoplasm of large intestine and rectum; C78.6 Secondary malignant neoplasm of retroperitoneum and peritoneum; Z85.3 Personal history of malignant neoplasm of breast; K21.0 Gastro-esophageal reflux disease with esophagitis; K44.9 Diaphragmatic hernia without obstruction or gangrene; D50.0 Iron deficiency anemia secondary to blood loss (chronic); D64.81 Anemia due to antineoplastic chemotherapy; D63.1 Anemia in chronic kidney disease; N18.9 Chronic kidney disease, unspecified; I25.10 Atherosclerotic heart disease of native coronary artery without angina pectoris; Z95.5 Presence of coronary angioplasty implant and graft; Z79.02 Long term (current) use of antithrombotics/antiplatelets; Z79.82 Long term (current) use of aspirin; Z92.21 Personal history of antineoplastic chemotherapy
CPT/HCPCS: 80053; 85025

== ENCOUNTER 2018-06-09 14:08 | Outpatient (RCR) | payer MEDICARE, MEDICAID ==
[~2018-06-09 14:08] MED LIST changes: -CARBOPLATIN 300 MG in D5W 50 ML IV(CANCER CTR) 50 ML IV SCH; -FAMOTIDINE 20MG/2ML IV (CANCER CTR) IV SCH; -NORMAL SALINE IV SCH; -NS IV 1000 ML (CANCER CTR) IV SCH; -ONDANSETRON MDV (CANCER CENTER 16 MG, DEXAMETHASONE PF INJ (CANCER C 10 MG in NS (IVPB)... IV SCH; -PACLITAXEL IV SCH; -diphenhydrAMINE 25 MG TAB (BENADRYL) CANCER CENTER PO SCH
[2018-06-09 14:29] LABS: BASOPHILS % (AUTO) 0 % (0-10); EOSINOPHILS # (AUTO) 0.1 10^3/uL (0.0-0.3); EOSINOPHILS % (AUTO) 2 % (0-10); HEMATOCRIT 25 % (35-52); LYMPHOCYTES # (AUTO) 1.9 X 10^3 (1.0-4.0); LYMPHOCYTES % (AUTO) 28 % (12-44); MEAN CORPUSCULAR HEMOGLOBIN 31 PG (25-34); MEAN CORPUSCULAR HGB CONC 32 G/DL (32-36); MEAN CORPUSCULAR VOLUME 97 FL (80-99); MEAN PLATELET VOLUME 10.5 FL (7.4-10.4); MONOCYTES # (AUTO) 0.7 X 10^3 (0.0-1.0); MONOCYTES % (AUTO) 10 % (0-12); NEUTROPHILS # (AUTO) 4.1 X 10^3 (1.8-7.8); NEUTROPHILS % (AUTO) 61 % (42-75); PLATELET COUNT 113 10^3/uL (130-400); RED BLOOD COUNT 2.62 10^6/uL (4.35-5.85); RED CELL DISTRIBUTION WIDTH 19.7 % (10.0-14.5); WHITE BLOOD COUNT 6.8 10^3/uL (4.3-11.0)
[2018-06-09 14:44] LABS: CALCIUM 9.3 MG/DL (8.5-10.1); CREATININE SERUM 1.49 MG/DL (0.60-1.30); POTASSIUM 3.5 MMOL/L (3.6-5.0)
== END 2018-06-16 11:02 | disposition home or self-care (01) ==
LOC: ONC 14:08
PROVIDERS: ATTEND Internal Medicine Hematology & Oncology
DX: C56.2 Malignant neoplasm of left ovary (principal); C55 Malignant neoplasm of uterus, part unspecified; C79.89 Secondary malignant neoplasm of other specified sites; C78.5 Secondary malignant neoplasm of large intestine and rectum; C78.6 Secondary malignant neoplasm of retroperitoneum and peritoneum; Z85.3 Personal history of malignant neoplasm of breast; K21.0 Gastro-esophageal reflux disease with esophagitis; K44.9 Diaphragmatic hernia without obstruction or gangrene; D50.0 Iron deficiency anemia secondary to blood loss (chronic); D64.81 Anemia due to antineoplastic chemotherapy; D63.1 Anemia in chronic kidney disease; N18.9 Chronic kidney disease, unspecified; I25.10 Atherosclerotic heart disease of native coronary artery without angina pectoris; Z95.5 Presence of coronary angioplasty implant and graft; Z79.02 Long term (current) use of antithrombotics/antiplatelets; Z79.82 Long term (current) use of aspirin; Z92.21 Personal history of antineoplastic chemotherapy
CPT/HCPCS: 36415; 80048; 85025; 99213

== ENCOUNTER 2018-06-25 00:13 | Inpatient (IN) | payer MEDICARE, MEDICAID ==
[~2018-06-25] VITALS: Ht 147.3 cm; Wt 84.1 kg
[2018-06-25] MEDS ORDERED: NS IV 500 ML 500 ML IV ONE (00:41)
--- NOTE | 2018-06-25 01:01 | ED General ---
General Chief Complaint: General Problems/Pain Stated Complaint: TOOK PILLS THEN VOMITED Nursing Triage Note: Pt reports she took her cancer pills tonight and vomited. She is concerned because her pills touched her tongue and she now has sores on her tongue. Pt SOA upon arrival to ED. Pt reports SOA started this evening. Nursing Sepsis Screen: No Definite Risk Source of Information: Patient Exam Limitations: No Limitations History of Present Illness Date Seen by Provider: Jun 25, 2018 Time Seen by Provider: 00:30 Initial Comments Here with report of sore to her tongue. She is currently on oral chemotherapy for ovarian cancer that has side effects of sores on her time and patient is very worried and is asking that we call the drug company related to this. She is also quite short of breath and she states that has been getting worse recently. Denies fever or chills. Did have nausea and vomiting tonight and did vomit the pill. She had difficulty getting here because her wouldn' t bring her. The neighbor brought her. She reports being quite weak. States that she's been drinking okay but states that she is not eating well. Timing/Duration: 1-3 Hours Severity: Moderate Associated Systoms: No Chest Pain, No Cough, No Fever/Chills; Nausea/Vomiting, Shortness of Air, Weakness Allergies and Home Medications Allergies Coded Allergies: Amoxicillin (Unverified Allergy, Unknown, 12/07/13) Iodinated Contrast Media - IV Dye (Unverified Allergy, Unknown, 12/07/13) Home Medications Brimonidine Tartrate/Timolol 5 Ml Drops, 1 DROP OU BID, (Reported) Cholecalciferol (Vitamin D3) 1,000 Unit Tablet, 1,000 UNIT PO DAILY, (Reported) Clopidogrel Bisulfate 75 Mg Tablet, 75 MG PO DAILY, (Reported) Doxepin HCl 25 Mg Capsule, 25 MG PO HS, (Reported) Ezetimibe 10 Mg Tablet, 10 MG PO HS, (Reported) Latanoprost 2.5 Ml Soln, 1 DROP OU HS, (Reported) Lovastatin 20 Mg Tablet, 20 MG PO HS, (Reported) Pantoprazole Sod 40 Mg Tab, 40 MG PO DAILY, (Reported) Sertraline Hcl 100 Mg Tab, 100 MG PO DAILY, (Reported) Patient Home Medication List Home Medication List Reviewed: Yes Review of Systems Review of Systems Constitutional: see HPI; No chills, No fever EENTM: see HPI, mouth pain; No mouth swelling Respiratory: No cough; short of breath; No wheezing Cardiovascular: No chest pain, No edema; palpitations Gastrointestinal: abdominal pain (diffuse, chronic), nausea, vomiting 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: no symptoms reported Musculoskeletal: no symptoms reported Skin: no symptoms reported Psychiatric/Neurological: No Symptoms Reported All Other Systems Reviewed Negative Unless Noted: Yes Past Vtgqjpo-Drkegf-Twllsd Hx Past Med/Social Hx: Reviewed Nursing Past Med/Soc Hx Patient Social History Alcohol Use: Denies Use Recreational Drug Use: No Smoking Status: Former Smoker Recent Foreign Travel: No Contact w/Someone Who Travel: No Recent Infectious Disease Expo: No Recent Hopitalizations: No Immunizations Up To Date Tetanus Booster (TDap): Unknown Date of Influenza Vaccine: Jun 13, 2013 Seasonal Allergies Seasonal Allergies: No Past Medical History Surgeries: Yes Coronary Stent, Hysterectomy, Lumpectomy Respiratory: No Cardiac: No Coronary Artery Disease, High Cholesterol, Hypertension Neurological: No Reproductive Disorders: 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 0.0oz. 87.668155yl; 35.0 BMI Method:Stated General Appearance: No Apparent Distress, WD/WN HEENT: PERRL/EOMI, Pharynx Normal Neck: Non Tender, Supple Respiratory: Lungs Clear, Normal Breath Sounds Cardiovascular: No Murmur, Tachycardia Gastrointestinal: Non Tender, Soft Back: Normal Inspection, No CVA Tenderness, No Vertebral Tenderness Extremity: Normal Range of Motion, Non Tender Neurologic/Psychiatric: Alert, Oriented x3 Skin: Normal Color, Warm/Dry Focused Exam Lactate Level 06/25/18 01:06: Lactic Acid Level 2.03*H Lactic Acid Level Laboratory Tests Test 10/13/18 01:06 Lactic Acid Level 2.03 MMOL/L (0.50-2.00) *H Progress/Results/Core Measures Suspected Sepsis Recent Fever Within 48 Hours: No Infection Criteria Present: None New/Unexplained Altered Menta: No Sepsis Screen: No Definite Risk SIRS Temperature:97.4 Pulse: 102 Respiratory Rate: 18 Laboratory Tests 06/25/18 01:06: White Blood Count 4.2L Blood Pressure 141 /122 Mean: 128 06/25/18 01:06: Lactic Acid Level 2.03*H Laboratory Tests 06/25/18 01:06: Creatinine 2.71#H, Platelet Count 48L, Total Bilirubin 0.8 Results/Orders Lab Results Laboratory Tests Test 06/25/18 01:06 06/25/18 02:20 Range/Units White Blood Count 4.2 L 4.3-11.0 10^3/uL Red Blood Count 2.34 L 4.35-5.85 10^6/uL Hemoglobin 7.5 L 11.5-16.0 G/DL Hematocrit 23 L 35-52 % Mean Corpuscular Volume 98 80-99 FL Mean Corpuscular Hemoglobin 32 25-34 PG Mean Corpuscular Hemoglobin Concent 33 32-36 G/DL Red Cell Distribution Width 20.9 H 10.0-14.5 % Platelet Count 48 L 130-400 10^3/uL Mean Platelet Volume 11.1 H 7.4-10.4 FL Neutrophils (%) (Auto) 61 42-75 % Lymphocytes (%) (Auto) 26 12-44 % Monocytes (%) (Auto) 10 0-12 % Eosinophils (%) (Auto) 2 0-10 % Basophils (%) (Auto) 0 0-10 % Neutrophils # (Auto) 2.5 1.8-7.8 X 10^3 Lymphocytes # (Auto) 1.1 1.0-4.0 X 10^3 Monocytes # (Auto) 0.4 0.0-1.0 X 10^3 Eosinophils # (Auto) 0.1 0.0-0.3 10^3/uL Basophils # (Auto) 0.0 0.0-0.1 10^3/uL Sodium Level 138 135-145 MMOL/L Potassium Level 3.4 L 3.6-5.0 MMOL/L Chloride Level 98 98-107 MMOL/L Carbon Dioxide Level 22 21-32 MMOL/L Anion Gap 18 H 5-14 MMOL/L Blood Urea Nitrogen 20 H 7-18 MG/DL Creatinine 2.71 #H 0.60-1.30 MG/DL Estimat Glomerular Filtration Rate 18 BUN/Creatinine Ratio 7 Glucose Level 117 H 70-105 MG/DL Lactic Acid Level 2.03 *H 0.50-2.00 MMOL/L Calcium Level 9.4 8.5-10.1 MG/DL Corrected Calcium 9.6 8.5-10.1 MG/DL Total Bilirubin 0.8 0.1-1.0 MG/DL Aspartate Amino Transf (AST/SGOT) 25 5-34 U/L Alanine Aminotransferase (ALT/SGPT) 16 0-55 U/L Alkaline Phosphatase 103 40-136 U/L C-Reactive Protein High Sensitivity 3.15 H 0.00-0.50 MG/DL Total Protein 7.6 6.4-8.2 GM/DL Albumin 3.8 3.2-4.5 GM/DL Urine Color YELLOW Urine Clarity SLIGHTLY CLOUDY Urine pH 7 5-9 Urine Specific [place] 1.010 L 1.016-1.022 Urine Protein 1+ H NEGATIVE Urine Glucose (UA) NEGATIVE NEGATIVE Urine Ketones 1+ H NEGATIVE Urine Nitrite NEGATIVE NEGATIVE Urine Bilirubin NEGATIVE NEGATIVE Urine Urobilinogen 1 NORMAL MG/DL Urine Leukocyte Esterase 3+ H NEGATIVE Urine RBC (Auto) 1+ H NEGATIVE Urine RBC NONE /HPF Urine WBC >100 H /HPF Urine Squamous Epithelial Cells 0-2 /HPF Urine Crystals NONE /LPF Urine Bacteria LARGE H /HPF Urine Casts NONE /LPF Urine Mucus NEGATIVE /LPF Urine Culture Indicated YES Micro Results Microbiology 06/25/18 Influenza Types A,B Antigen (TORRES) - Final, Complete My Orders Orders - ZEE MAURER MD Cbc With Automated Diff (06/25/18 00:41) Comprehensive Metabolic Panel (06/25/18 00:41) Hs C Reactive Protein (06/25/18 00:41) Lactic Acid Analyzer (06/25/18 00:41) Ua Culture If Indicated (06/25/18 00:41) Blood Culture (06/25/18 00:41) Saline Lock/Iv-Start (06/25/18 00:41) Ns Iv 500 Ml (Sodium Chloride 0.9%) (06/25/18 00:41) Chest 1 View, Ap/Pa Only (06/25/18 00:41) Lorazepam Injection (Ativan Injection) (06/25/18 01:30) Influenza A And B Antigens (06/25/18 01:42) Urine Culture (06/25/18 02:20) Cefepime Injection (Maxipime Injection) (06/25/18 02:53) Medications Given in ED Current Medications Medications Dose Ordered Sig/Luis Fernando Route Start Time Stop Time Status Last Admin Dose Admin Lorazepam 0.5 mg ONCE ONCE IVP 06/25/18 01:30 06/25/18 01:31 DC 06/25/18 01:30 0.5 MG Sodium Chloride 500 ml @ 0 mls/hr Q0M ONCE IV 06/25/18 00:41 06/25/18 00:44 DC 06/25/18 01:01 999 MLS/HR Vital Signs/I&O 06/25/18 00:34 Temp 97.4 Pulse 102 Resp 18 B/P (MAP) 141/122 (128) Pulse Ox 100 O2 Delivery Room Air Capillary Refill : Less Than 3 Seconds Blood Pressure Mean: 128 Progress Note : Progress Note Seen and evaluated. IV via port access, labs, blood cultures, chest x-ray and UA ordered. Normal saline 500 mg bolus. Monitor patient. UA obtained via catheter specimen eventually. 0250: UTI noted. Question of some striping in the chest x-ray but I believe the infection is related to urinary tract infection. We will treat this more aggressively due to cancer treatment currently ongoing. This was discussed with Dr. Blunt. She accepts patient for admission, inpatient status. We have agreed on cefepime for treatment. Cefepime 1 g IV ordered. Findings and concerns discussed with the patient who agrees with admission. Diagnostic Imaging Diagonstic Imaging: Xray Plain Films/CT/US/NM/MRI: chest Comments Mild peribronchial thickening bilateral bases. No obvious infiltrate. Departure Communication (Admissions) Time/Spoke to Admitting Phy: 02:50 Impression Primary Impression: Urinary tract infection Qualified Codes: N30.00 - Acute cystitis without hematuria Additional Impression: Ovarian cancer Qualified Codes: C56.9 - Malignant neoplasm of unspecified ovary Disposition: ADMITTED INPATIENT Condition: Stable Admissions Decision to Admit Reason: Admit from ER (General) Decision to Admit/Date: Jun 25, 2018 Time/Decision to Admit Time: 02:50 Departure-Patient Inst. Referrals: CODEY FERRO DO (PCP) Primary Care Physician PANCHITO KRISHNAMURTHY (Family) Primary Care Physician ZEE MAURER MD Jun 25, 2018 01:01
[2018-06-25 01:16] LABS: BASOPHILS % (AUTO) 0 % (0-10); EOSINOPHILS # (AUTO) 0.1 10^3/uL (0.0-0.3); EOSINOPHILS % (AUTO) 2 % (0-10); HEMATOCRIT 23 % (35-52); HEMOGLOBIN 7.5 G/DL (11.5-16.0); LYMPHOCYTES # (AUTO) 1.1 X 10^3 (1.0-4.0); LYMPHOCYTES % (AUTO) 26 % (12-44); MEAN CORPUSCULAR HEMOGLOBIN 32 PG (25-34); MEAN CORPUSCULAR HGB CONC 33 G/DL (32-36); MEAN CORPUSCULAR VOLUME 98 FL (80-99); MEAN PLATELET VOLUME 11.1 FL (7.4-10.4); MONOCYTES # (AUTO) 0.4 X 10^3 (0.0-1.0); MONOCYTES % (AUTO) 10 % (0-12); NEUTROPHILS # (AUTO) 2.5 X 10^3 (1.8-7.8); NEUTROPHILS % (AUTO) 61 % (42-75); PLATELET COUNT 48 10^3/uL (130-400); RED BLOOD COUNT 2.34 10^6/uL (4.35-5.85); RED CELL DISTRIBUTION WIDTH 20.9 % (10.0-14.5); WHITE BLOOD COUNT 4.2 10^3/uL (4.3-11.0)
[2018-06-25] MEDS ORDERED: LORazepam INJ 2 MG/ML (ATIVAN) VIAL IVP ONE (01:30)
[2018-06-25 01:34] LABS: ALBUMIN 3.8 GM/DL (3.2-4.5); BILIRUBIN,TOTAL 0.8 MG/DL (0.1-1.0); CALCIUM 9.4 MG/DL (8.5-10.1); CREATININE SERUM 2.71 MG/DL (0.60-1.30); POTASSIUM 3.4 MMOL/L (3.6-5.0); TOTAL PROTEIN 7.6 GM/DL (6.4-8.2)
[2018-06-25 02:35] LABS: BILIRUBIN,URINE NEGATIVE (NEGATIVE); CLARITY,URINE SLIGHTLY CLOUDY; COLOR,URINE YELLOW; GLUCOSE, URINE (UA) NEGATIVE (NEGATIVE); KETONES,URINE 1+ (NEGATIVE); LEUKOCYTE ESTERASE ,URINE 3+ (NEGATIVE); NITRITE,URINE NEGATIVE (NEGATIVE); PH,URINE 7 (5-9); PROTEIN,URINE 1+ (NEGATIVE); UROBILINOGEN,URINE 1 MG/DL (NORMAL)
[2018-06-25 02:47] LABS: BACTERIA,URINE LARGE /HPF; SQUAMOUS EPITHELIAL CELL,UR 0-2 /HPF; WBC,URINE >100 /HPF
[2018-06-25] MEDS ORDERED: CEFEPIME INJECTION 1,000 MG in NS (IVPB) 50 ML IV STA (02:53)
[2018-06-25 04:43] VITALS: BP 129/78
[2018-06-25] MEDS ORDERED: NS IV 1000 ML 1,000 ML ONE (04:46)
[2018-06-25] MEDS ORDERED: RT-ALBUTEROL SULF 2.5 MG/3 ML PRE-MIX VIAL INH PRN (05:00)
[2018-06-25] MEDS ORDERED: LORazepam INJ 2 MG/ML (ATIVAN) VIAL IV PRN (05:45)
[2018-06-25] MEDS ORDERED: ONDANSETRON 4 MG/2 ML (SDV) Z0FRAN IV PRN (05:45)
[2018-06-25] MEDS: NS IV 1000 ML 1,000 ML IV SCH (05:45)
[2018-06-25 07:24] LABS: BASOPHILS % (AUTO) 0 % (0-10); EOSINOPHILS # (AUTO) 0.1 10^3/uL (0.0-0.3); EOSINOPHILS % (AUTO) 2 % (0-10); HEMATOCRIT 21 % (35-52); LYMPHOCYTES # (AUTO) 1.1 X 10^3 (1.0-4.0); LYMPHOCYTES % (AUTO) 30 % (12-44); MEAN CORPUSCULAR HEMOGLOBIN 32 PG (25-34); MEAN CORPUSCULAR HGB CONC 32 G/DL (32-36); MEAN CORPUSCULAR VOLUME 100 FL (80-99); MONOCYTES # (AUTO) 0.4 X 10^3 (0.0-1.0); MONOCYTES % (AUTO) 12 % (0-12); NEUTROPHILS # (AUTO) 2.1 X 10^3 (1.8-7.8); NEUTROPHILS % (AUTO) 56 % (42-75); PLATELET COUNT 40 10^3/uL (130-400); RED BLOOD COUNT 2.09 10^6/uL (4.35-5.85); RED CELL DISTRIBUTION WIDTH 20.9 % (10.0-14.5); WHITE BLOOD COUNT 3.7 10^3/uL (4.3-11.0)
[2018-06-25 07:27] LABS: HEMOGLOBIN 6.7 G/DL (11.5-16.0)
--- NOTE | 2018-06-25 07:38 | Diagnostic Imaging Report ---
INDICATION: Cough and congestion COMPARISON: 02/02/2018 FINDINGS: Single view of the chest demonstrates cardiac enlargement without pulmonary edema. There is no pneumothorax, effusion or infiltrate. Osseous structures stable. There is a Port-A-Cath in stable position. IMPRESSION: Cardiac enlargement without pulmonary edema or infiltrate Dictated by: Dictated on workstation # [id number]
[2018-06-25 07:50] LABS: ALBUMIN 3.6 GM/DL (3.2-4.5); BILIRUBIN,TOTAL 0.6 MG/DL (0.1-1.0); CREATININE SERUM 2.41 MG/DL (0.60-1.30); POTASSIUM 3.2 MMOL/L (3.6-5.0)
[2018-06-25 08:00] VITALS: BP 123/58
[2018-06-25] MEDS ORDERED: CEFEPIME 1 GM/NS 50 ML IV SCH ×2 (09:00)
[2018-06-25] MEDS ORDERED: NIRA100C PO (09:52)
[2018-06-25 12:00] VITALS: BP 111/53
--- NOTE | 2018-06-25 12:20 | History & Physicial (CHS) ---
HPI History of Present Illness: 68 yo F with ovarian cancer that presented to ER because she had a couple days where she was not feeling well. States that she is taking oral chemo and has been getting mouth sores from the pills. Denies any fever but has been having chills. Denies any pain other then her normal aches and pains. + increase in urination. Denies any blood in urine or stool. States that she has some nausea and vomited 1 time yesterday. States that she has been feeling more weak the last few days. No sick contacts. Source: patient Date seen by provider: Jun 25, 2018 Time Seen by Provider: 10:15 Attending Physician Jean Paul Blunt MD PCP Holly Coe DO Consult Date of Admission Jun 25, 2018 at 02:59 Home Medications Home Medications Reviewed patient Home Medication Reconciliation performed by pharmacy medication reconciliations insulator technician and/or nursing. Patients Allergies have been reviewed. Allergies Coded Allergies: Iodinated Contrast- Oral and IV Dye (Unverified Allergy, Unknown, 12/07/13) amoxicillin (Unverified Allergy, Unknown, 12/07/13) FXG-[id number]-Mphomx Hx Patient Social History Living Status: Lives with Alcohol Use: Denies Use Recreational Drug Use: No Smoking Status: Former Smoker Recent Foreign Travel: No Contact w/other who traveled: No Recent Hopitalizations: No Recent Infectious Disease Expo: No Physical Abuse Screen: No Sexual Abuse: No Immunizations Up To Date Tetanus Booster (TDap): Unknown Date of Influenza Vaccine: May 14, 2018 Past Medical History Ovarian and Breast Ca HTN CAD Family Medical History Significant Family History: No Pertinent Family Hx Review of Systems (CHC) Constitutional: chills; No dizziness, No fever; malaise, weakness EENTM: mouth pain Respiratory: No cough; dyspnea on exertion Cardiovascular: no symptoms reported; No chest pain, No edema, No palpitations Gastrointestinal: No abdominal pain, No constipation, No diarrhea; loss of appetite, nausea, vomiting 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: No dysuria; frequency; No hematuria Musculoskeletal: no symptoms reported Skin: no symptoms reported Psychiatric/Neurological: No Symptoms Reported Reviewed Test Results Reviewed Test Results Lab Laboratory Tests Test 06/25/18 01:06 06/25/18 02:20 06/25/18 03:36 06/25/18 07:08 Range/Units White Blood Count 4.2 L 3.7 L 4.3-11.0 10^3/uL Red Blood Count 2.34 L 2.09 L 4.35-5.85 10^6/uL Hemoglobin 7.5 L 6.7 *L 11.5-16.0 G/DL Hematocrit 23 L 21 L 35-52 % Mean Corpuscular Volume 98 100 H 80-99 FL Mean Corpuscular Hemoglobin 32 32 25-34 PG Mean Corpuscular Hemoglobin Concent 33 32 32-36 G/DL Red Cell Distribution Width 20.9 H 20.9 H 10.0-14.5 % Platelet Count 48 L 40 L 130-400 10^3/uL Mean Platelet Volume 11.1 H 10.0 7.4-10.4 FL Neutrophils (%) (Auto) 61 56 42-75 % Lymphocytes (%) (Auto) 26 30 12-44 % Monocytes (%) (Auto) 10 12 0-12 % Eosinophils (%) (Auto) 2 2 0-10 % Basophils (%) (Auto) 0 0 0-10 % Neutrophils # (Auto) 2.5 2.1 1.8-7.8 X 10^3 Lymphocytes # (Auto) 1.1 1.1 1.0-4.0 X 10^3 Monocytes # (Auto) 0.4 0.4 0.0-1.0 X 10^3 Eosinophils # (Auto) 0.1 0.1 0.0-0.3 10^3/uL Basophils # (Auto) 0.0 0.0 0.0-0.1 10^3/uL Sodium Level 138 138 135-145 MMOL/L Potassium Level 3.4 L 3.2 L 3.6-5.0 MMOL/L Chloride Level 98 99 98-107 MMOL/L Carbon Dioxide Level 22 24 21-32 MMOL/L Anion Gap 18 H 15 H 5-14 MMOL/L Blood Urea Nitrogen 20 H 19 H 7-18 MG/DL Creatinine 2.71 #H 2.41 H 0.60-1.30 MG/DL Estimat Glomerular Filtration Rate 18 20 BUN/Creatinine Ratio 7 8 Glucose Level 117 H 99 70-105 MG/DL Lactic Acid Level 2.03 *H 0.77 0.50-2.00 MMOL/L Calcium Level 9.4 9.0 8.5-10.1 MG/DL Corrected Calcium 9.6 9.3 8.5-10.1 MG/DL Total Bilirubin 0.8 0.6 0.1-1.0 MG/DL Aspartate Amino Transf (AST/SGOT) 25 26 5-34 U/L Alanine Aminotransferase (ALT/SGPT) 16 16 0-55 U/L Alkaline Phosphatase 103 96 40-136 U/L C-Reactive Protein High Sensitivity 3.15 H 0.00-0.50 MG/DL Total Protein 7.6 7.0 6.4-8.2 GM/DL Albumin 3.8 3.6 3.2-4.5 GM/DL Urine Color YELLOW Urine Clarity SLIGHTLY CLOUDY Urine pH 7 5-9 Urine Specific [place] 1.010 L 1.016-1.022 Urine Protein 1+ H NEGATIVE Urine Glucose (UA) NEGATIVE NEGATIVE Urine Ketones 1+ H NEGATIVE Urine Nitrite NEGATIVE NEGATIVE Urine Bilirubin NEGATIVE NEGATIVE Urine Urobilinogen 1 NORMAL MG/DL Urine Leukocyte Esterase 3+ H NEGATIVE Urine RBC (Auto) 1+ H NEGATIVE Urine RBC NONE /HPF Urine WBC >100 H /HPF Urine Squamous Epithelial Cells 0-2 /HPF Urine Crystals NONE /LPF Urine Bacteria LARGE H /HPF Urine Casts NONE /LPF Urine Mucus NEGATIVE /LPF Urine Culture Indicated YES Physical Exam-(CHC) Physical Exam Vital Signs VS - Last 72 Hours, by Label 06/25/18 06/25/18 06/25/18 06/25/18 00:34 03:19 04:29 04:43 Temp 97.4 Pulse 102 88 88 Resp 18 18 B/P (MAP) 141/122 (128) 129/78 (95) Pulse Ox 100 99 100 O2 Delivery Room Air Nasal Cannula Nasal Cannula O2 Flow Rate 2.00 2.00 FiO2 21 06/25/18 06/25/18 06/25/18 08:00 08:00 12:00 Temp 98.0 97.9 Pulse 101 95 Resp 20 20 B/P (MAP) 123/58 (79) 111/53 (72) Pulse Ox 95 99 O2 Delivery Room Air Room Air Room Air Capillary Refill : Less Than 3 SecondsLess Than 3 Seconds General Appearance: WD/WN, no apparent distress HEENT: other (small ulceration on the right side of tongue, no signs of secondary infection related to ulceration) Respiratory: chest non-tender, lungs clear, normal breath sounds, no respiratory distress, no accessory muscle use Cardiovascular: regular rate, rhythm, no murmur Gastrointestinal: normal bowel sounds, non tender, soft, no organomegaly Back: no CVA tenderness, no vertebral tenderness Extremities: no calf tenderness, normal capillary refill, other (1+ swelling bilaterally) Neurologic/Psychiatric: no motor/sensory deficits, alert, normal mood/affect Skin: warm/dry, pallor Lymphatic: no adenopathy Assessment/Plan Assessment/Plan Admission Status: Inpatient Order (span 2 midnights) Reason for Inpatient Admission: Cancer patient needing IV antibiotics (1) Sepsis secondary to UTI Status: Acute Assessment & Plan: - Sepsis has resolved, Continue broad spectrum AB, blood and urine cultures pending - Cefepime D2 (2) Pancytopenia Status: Acute Assessment & Plan: - Likely / to PO chemo, will consult Oncology to see patient on wednesday - Hgb 6.7, iron panel pending, will continue to monitor (3) Acute kidney failure Status: Acute Assessment & Plan: - Gentle hydration, will continue to monitor Qualifiers: Qualified Codes: N17.9 - Acute kidney failure, unspecified (4) Ovarian cancer Status: Acute Qualifiers: Qualified Codes: C56.9 - Malignant neoplasm of unspecified ovary (5) Hypokalemia Status: Acute Assessment & Plan: - Replaced and repeat BMP in AM (6) Debility Status: Acute Assessment & Plan: PT consulted (7) DVT prophylaxis Status: Acute Assessment & Plan: Lovenox Clinical Quality Measures DVT/VTE Risk/Contraindication: Risk Factor Score Per Nursin RFS Level Per Nursing on Admit: 4+=Very High Copy Copies To 1: JEAN PAUL Ruelas APRN, MD Jun 25, 2018 12:20
[2018-06-25] MEDS ORDERED: ENOXAPARIN 40 MG/0.4 ML (LOVENOX) SYR SQ SCH (12:30)
[2018-06-25] MEDS ORDERED: KCL 20 MEQ TAB (K-DUR) PO NR (12:30)
[2018-06-25] MEDS: ENOXAPARIN 30 MG/0.3 ML (LOVENOX) SYR SC SCH (12:52)
--- OUTSIDE RECORDS SUMMARY | 2018-06-25 14:21 | XMS REPORT ---
Author Author EKTA GARY Organization [facility] Address [address] [place] [address] Care Team Providers Care Mobile Sales Expert Name Role Phone EKTA GARY Unavailable PROBLEMS Type Condition ICD9-CM Code [id number] Code Onset Dates Condition Status SNOMED Code Problem Mixed hyperlipidemia E78.2 Active 777859976 Problem Glaucoma of both eyes, unspecified glaucoma type H40.9 Active 83662025 Problem Morbid (severe) obesity due to excess calories E66.01 Active 525774375 Problem Essential hypertension I10 Active 56445663 Problem Vitamin D deficiency E55.9 Active 00909165 Problem Constipation by delayed colonic transit K59.01 Active 15470899 Problem Memory loss R41.3 Active 092674255 Problem GERD without esophagitis K21.9 Active 491219114 Problem Body mass index (BMI) of 40.0-44.9 in adult Z68.41 Active 817480663 Problem Recurrent major depressive disorder, in full remission F33.42 Active 47050526 Problem Chronic obstructive pulmonary disease, unspecified COPD type J44.9 Active 64490127 Problem Coronary artery disease involving [place] coronary artery of [place] heart without angina pectoris I25.10 Active 0757345060789 ALLERGIES Substance Reaction Event Type Date Status Contrast Allergy PreMed Pack anaphylaxis Drug Allergy Apr, Active Amoxicillin Unknown Drug Allergy Apr, Active ENCOUNTERS Encounter Location Date Diagnosis [facility] [address] [facility] [id number] [address] Apr, Essential hypertension I10 ; Glaucoma of both eyes, unspecified glaucoma type H40.9 ; Body mass index (BMI) of 40.0-44.9 in adult Z68.41 ; Chronic obstructive pulmonary disease, unspecified COPD type J44.9 ; Memory loss R41.3 and Poor dentition K08.9 [facility] [address] [facility] [id number], [place] [address] Dec, Essential hypertension I10 ; Coronary artery disease involving [place] coronary artery of [place] heart without angina pectoris I25.10 ; Chronic obstructive pulmonary disease, unspecified COPD type J44.9 ; Mixed hyperlipidemia E78.2 ; GERD without esophagitis K21.9 ; Recurrent major depressive disorder, in full remission F33.42 ; Glaucoma of both eyes, unspecified glaucoma type H40.9 ; Constipation by delayed colonic transit K59.01 ; Vitamin D deficiency E55.9 ; Body mass index (BMI) of 40.0-44.9 in adult Z68.41 and Morbid (severe) obesity due to excess calories E66.01 [facility] [address] [facility] [id number] [place] [id number] Feb, Dental caries K02.9 [facility] [address] [facility] [id number] [id number] January, Dental examination Z01.20 IMMUNIZATIONS No Known Immunizations SOCIAL HISTORY Never Assessed REASON FOR VISIT HTN/CAD-[facility]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, 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, 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 PLAN OF CARE Activity Details Follow Up 3 Months, prn Reason:CHM/HTN VITAL SIGNS Height 58 in 2018-04-18 Weight 203 lbs 2018-04-18 Temperature 97.2 degrees Fahrenheit 2018-04-18 Heart Rate 70 bpm 2018-04-18 Respiratory Rate 18 2018-04-18 BMI 42.42 kg/m2 2018-04-18 Blood pressure systolic 122 mmHg 2018-04-18 Blood pressure diastolic 70 mmHg 2018-04-18 MEDICATIONS Medication Instructions Dosage Frequency Start Date End Date Duration Status Latanoprost 0.005 % Ophthalmic Once a day 1 drop into affected ear 24h Active Combigan 0.2-0.5 % Ophthalmic Twice a day 1 drop into affected eye 12h Active Lovastatin 20 MG Orally Once a day 1 tablet 24h 90 days Active Vitamin D3 1000 UNIT Orally Once a day 1 capsule 24h 90 days Active Plavix 75 MG Orally Once a day 1 tablet 24h 90 days Active protonix 40 mg by inhalation route Once a day 1 tablet 24h 90 days Active Ciclopirox Active MiraLax 17 gm/dose Orally Once a day 1 packet mixed with 8 ounces of fluid 24h 90 days Active Magnesium 400 MG Orally Once a day 1 capsule 24h 90 days Active Zoloft 100 mg Oral Once a day 1 tablet 24h 90 days Active Doxepin HCl 25 MG Orally Once a day 1 capsule at bedtime 24h 90 days Active RESULTS No Results PROCEDURES Procedure Date Ordered Result Body Site [facility] VISIT ESTABLISHED PATIENT Apr 18, 2018 INSTRUCTIONS MEDICATIONS ADMINISTERED No Known Medications MEDICAL (GENERAL) HISTORY Type Description Date Medical History high blood pressure Medical History heart disease w/ stent to LAD D1 w/ Promus E. 2.5 x 12 mm 2012, 2016- Echo- LVEF 60% w/ triv to mild MR/TR mild diastolic dysfunction and PASP 30mmHg Medical History COPD Medical History Thyroid issues Medical History Cancer/uterine/ovarian/breast w/ lymph node involvement Medical History blood transfusions Medical History Blood thinners Medical History radiation/chemo Medical History kidney disease Medical History eczema Surgical History biopsy (multiple) Surgical History hysterectomy 2010 Surgical History Stent placement unknown Hospitalization History surgeries only
--- OUTSIDE RECORDS SUMMARY | 2018-06-25 14:21 | XMS REPORT ---
Author Author PANCHITO KRISHNAMURTHY Organization [facility] Address [address] [place] [address] Care Team Providers Care Transcript Clerk Name Role Phone PANCHITO KRISHNAMURTHY Unavailable PROBLEMS Type Condition ICD9-CM Code [id number] Code Onset Dates Condition Status SNOMED Code Problem Mixed hyperlipidemia E78.2 Active 282798111 Problem Glaucoma of both eyes, unspecified glaucoma type H40.9 Active 33393989 Problem Morbid (severe) obesity due to excess calories E66.01 Active 186078981 Problem Essential hypertension I10 Active 90800391 Problem Vitamin D deficiency E55.9 Active 25158847 Problem Constipation by delayed colonic transit K59.01 Active 30206239 Problem Memory loss R41.3 Active 860919664 Problem GERD without esophagitis K21.9 Active 521777641 Problem Body mass index (BMI) of 40.0-44.9 in adult Z68.41 Active 212363745 Problem Recurrent major depressive disorder, in full remission F33.42 Active 74596574 Problem Chronic obstructive pulmonary disease, unspecified COPD type J44.9 Active 98214851 Problem Coronary artery disease involving [place] coronary artery of [place] heart without angina pectoris I25.10 Active [id number] ALLERGIES Substance Reaction Event Type Date Status Contrast Allergy PreMed Pack anaphylaxis Drug Allergy May, Active Amoxicillin Unknown Drug Allergy May, Active ENCOUNTERS Encounter Location Date Diagnosis [facility] [id number] [address] Jun, [facility] [address] [place] [address] May, Viral rash B09 ; Recurrent major depressive disorder, in full remission F33.42 and GERD without esophagitis K21.9 [facility] [id number] [address] May, Viral rash B09 and Encounter for immunization Z23 [facility] [address] [facility] [id number] [address] Apr, Essential hypertension I10 ; Glaucoma of both eyes, unspecified glaucoma type H40.9 ; Body mass index (BMI) of 40.0-44.9 in adult Z68.41 ; Chronic obstructive pulmonary disease, unspecified COPD type J44.9 ; Memory loss R41.3 and Poor dentition K08.9 [facility] [id number] [place] [id number] Dec, Essential hypertension I10 ; Coronary artery disease involving [place] coronary artery of [place] heart without angina pectoris I25.10 ; Chronic [...] (severe) obesity due to excess calories E66.01 [facility] [id number] [place] [phone] Feb, Dental caries K02.9 [facility] [address] [place] [phone] January, Dental examination Z01.20 IMMUNIZATIONS Vaccine Route Administration Date Status FLUZONE HIGH DOSE 0.5ML (65 & UP) 2018 IM Intramuscular Jun 08, 2018 Administered PPSV23 (PNEUMOVAX) IM Intramuscular Jun 08, 2018 Administered SOCIAL HISTORY Never Assessed REASON FOR VISIT Rash on left arm x1 month TELMA Anthony PLAN OF CARE VITAL SIGNS Height 58 in 2018-06-08 Weight 192 lbs 2018-06-08 Heart Rate 70 bpm 2018-06-08 Respiratory Rate 18 2018-06-08 BMI 40.12 kg/m2 2018-06-08 Blood pressure systolic 120 mmHg 2018-06-08 Blood pressure diastolic 68 mmHg 2018-06-08 MEDICATIONS Medication Instructions Dosage Frequency Start Date End Date Duration Status protonix 40 mg by inhalation route Once a day 1 tablet 24h 90 days Active Plavix 75 MG Orally Once a day 1 tablet 24h 90 days Active Magnesium 400 MG Orally Once a day 1 capsule 24h 90 days Active Lovastatin 20 MG Orally Once a day 1 tablet 24h 90 days Active Zejula 100 MG Orally Once a day 3 capsules 24h 30 day(s) Active MiraLax 17 gm/dose Orally Once a day 1 packet mixed with 8 ounces of fluid 24h 90 days Active Vitamin D3 1000 UNIT Orally Once a day 1 capsule 24h 90 days Active Zoloft 100 mg Oral Once a day 1 tablet 24h 90 days Active Doxepin HCl 25 MG Orally Once a day 1 capsule at bedtime 24h 90 days Active Latanoprost 0.005 % Ophthalmic Once a day 1 drop into affected ear 24h Active Acyclovir 400 mg Orally Five times a day 2 tablets May, 7 days Active Combigan 0.2-0.5 % Ophthalmic Twice a day 1 drop into affected eye 12h Active Ciclopirox Active RESULTS No Results PROCEDURES Procedure Date Ordered Result Body Site PPSV23 (PNEUMOVAX) Jun 08, 2018 SINGLE IMMUNIZATION ADMIN Jun 08, 2018 FLUZONE HIGH DOSE (65 & UP) 2018 Jun 08, 2018 IMMUNIZATION ADMIN, EACH ADD (please include units) Jun 08, 2018 INSTRUCTIONS MEDICATIONS ADMINISTERED No Known Medications [...]
--- OUTSIDE RECORDS SUMMARY | 2018-06-25 14:21 | XMS REPORT ---
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 Builder Name Role Phone EKTA FELIX Unavailable PROBLEMS Type Condition ICD9-CM Code AHI68-OV Code Onset Dates Condition Status SNOMED Code Problem Body mass index (BMI) of 40.0-44.9 in adult Z68.41 Active 134245456 Problem Chronic obstructive pulmonary disease, unspecified COPD type J44.9 Active 24152714 Problem Coronary artery disease involving [place] coronary artery of [place] heart without angina pectoris I25.10 Active 2765799007675 Problem Glaucoma of both eyes, unspecified glaucoma type H40.9 Active 36700244 Problem Recurrent major depressive disorder, in full remission F33.42 Active 10719614 Problem Morbid (severe) obesity due to excess calories E66.01 Active 914022817 Problem Mixed hyperlipidemia E78.2 Active 891109171 Problem Essential hypertension I10 Active 09274925 Problem GERD without esophagitis K21.9 Active 910562567 Problem Constipation by delayed colonic transit K59.01 Active 92512834 Problem Vitamin D deficiency E55.9 Active 21774583 ALLERGIES Substance Reaction Event Type Date Status Contrast Allergy PreMed Pack anaphylaxis Drug Allergy Dec, Active Amoxicillin Unknown Drug Allergy Dec, Active ENCOUNTERS Encounter Location Date Diagnosis [facility] [address] [facility] [id number], [place] [address] Apr, [facility] [address] [facility] [id number], [place] [address] Dec, Essential hypertension I10 ; Coronary artery disease involving [place] coronary artery of [place] heart without angina pectoris I25.10 ; Chronic [...] (severe) obesity due to excess calories E66.01 [facility] [address] [facility] [id number] [phone] Feb, Dental caries K02.9 [facility] [address] [facility] [id number] [phone] January, Dental examination Z01.20 IMMUNIZATIONS No Known Immunizations SOCIAL HISTORY Never Assessed REASON FOR VISIT Establish Care with Jamey Felix from [facility] in [place], [place] PLAN OF CARE Activity Details Follow Up 3 Months, prn Reason:CHM/HTN/CAD VITAL SIGNS Height 58 in 2017-12-16 Weight 215 lbs 2017-12-16 Temperature 98.3 degrees Fahrenheit 2017-12-16 Heart Rate 68 bpm 2017-12-16 Respiratory Rate 20 2017-12-16 Oximetry 98 % 2017-12-16 BMI 44.93 kg/m2 2017-12-16 Blood pressure systolic 112 mmHg 2017-12-16 Blood pressure diastolic 64 mmHg 2017-12-16 MEDICATIONS Medication Instructions Dosage Frequency Start Date End Date Duration Status Ciclopirox Not-Taking MiraLax 17 gm/dose Orally Once a day 1 packet mixed with 8 ounces of fluid 24h 90 days Active Plavix 75 MG Orally Once a day 1 tablet 24h 90 days Active Doxepin HCl 25 MG Orally Once a day 1 capsule at bedtime 24h 90 days Active Combigan 0.2-0.5 % Ophthalmic Twice a day 1 drop into affected eye 12h 12 months Active Magnesium 400 MG Orally Once a day 1 capsule 24h 90 days Active protonix 40 mg by inhalation route Once a day 1 tablet 24h 90 days Active Latanoprost 0.005 % Ophthalmic Once a day 1 drop into affected ear 24h 12 months Active Vitamin D3 1000 UNIT Orally Once a day 1 capsule 24h 90 days Active Lovastatin 20 MG Orally Once a day 1 tablet 24h 90 days Active Zoloft 100 mg Oral Once a day 1 tablet 24h 90 days Active RESULTS No Results PROCEDURES Procedure Date Ordered Result Body Site [facility] VISIT ESTABLISHED PATIENT December 16, 2017 INSTRUCTIONS MEDICATIONS ADMINISTERED No Known Medications MEDICAL (GENERAL) HISTORY Type Description Date Medical History high blood pressure Medical History heart disease w/ stent placement Medical History COPD Medical History Thyroid issues Medical History Cancer/uterine/ovarian/breast w/ lymph node involvement Medical History blood transfusions Medical History Blood thinners Medical History radiation/chemo Medical History kidney disease Medical History eczema Surgical History biopsy (multiple) Surgical History hysterectomy 2010 Surgical History Stent placement unknown Hospitalization History surgeries only
--- OUTSIDE RECORDS SUMMARY | 2018-06-25 14:21 | XMS REPORT ---
Author Author PANCHITO KRISHNAMURTHY Organization [facility] Address [address] [place] [address] Care Team Providers Care Staff Command And Control Officer Name Role Phone PANCHITO KRISHNAMURTHY Unavailable PROBLEMS Type Condition ICD9-CM Code KAU10-QR Code Onset Dates Condition Status SNOMED Code Problem Vitamin D deficiency E55.9 Active 61856396 Problem Mixed hyperlipidemia E78.2 Active 745536750 Problem Constipation by delayed colonic transit K59.01 Active 82240506 Problem CKD (chronic kidney disease) stage 4, GFR 15-29 ml/min N18.4 Active 842688242 Problem Glaucoma of both eyes, unspecified glaucoma type H40.9 Active 74568290 Problem Recurrent major depressive disorder, in full remission F33.42 Active 40287098 Problem Essential hypertension I10 Active 53092206 Problem Memory loss R41.3 Active 023920076 Problem GERD without esophagitis K21.9 Active 327052699 Problem Body mass index (BMI) of 40.0-44.9 in adult Z68.41 Active 761562257 Problem Morbid (severe) obesity due to excess calories E66.01 Active 966435570 Problem Chronic obstructive pulmonary disease, unspecified COPD type J44.9 Active 49813025 Problem Coronary artery disease involving [place] coronary artery of [place] heart without angina pectoris I25.10 Active 3908560186275 ALLERGIES No Information ENCOUNTERS Encounter Location Date Diagnosis [facility] [id number], [place] [address] Jun, [facility] [address] [place] [phone] May, Viral rash B09 ; Recurrent major depressive disorder, in full remission F33.42 and GERD without esophagitis K21.9 [facility] [id number], [place] [address] May, Viral rash B09 and Encounter for immunization Z23 [facility] [address] [facility] [id number] [id number] Apr, Essential hypertension I10 ; Glaucoma of both eyes, unspecified glaucoma type H40.9 ; Body mass index (BMI) of 40.0-44.9 in adult Z68.41 ; Chronic obstructive pulmonary disease, unspecified COPD type J44.9 ; Memory loss R41.3 and Poor dentition K08.9 [facility] [id number] [place] [id number] Dec, Essential hypertension I10 ; Coronary artery disease involving [place] coronary artery of [place] heart without angina pectoris I25.10 ; Chronic [...] (severe) obesity due to excess calories E66.01 [facility] [id number] [place] [phone] Feb, Dental caries K02.9 [facility] [address] [place] [phone] January, Dental examination Z01.20 IMMUNIZATIONS No Known Immunizations SOCIAL HISTORY Never Assessed REASON FOR VISIT Requests return call PLAN OF CARE VITAL SIGNS MEDICATIONS Medication Instructions Dosage Frequency Start Date End Date Duration Status Zoloft 100 mg Orally Once a day 1 tablet 24h Jun, Active protonix 40 mg by inhalation route Once a day 1 tablet 24h Aug, 90 days Active RESULTS No Results PROCEDURES No Known procedures INSTRUCTIONS MEDICATIONS ADMINISTERED No Known Medications MEDICAL [...]
--- OUTSIDE RECORDS SUMMARY | 2018-06-25 14:33 | XMS REPORT | Continuity of Care Document ---
Author Author [facility] Organization [facility] Address Unknown Phone Unavailable Allergies Active Description Code Type Severity Reaction Onset Reported/Identified Relationship to Patient Clinical Status Yes amoxicillin [id number] Drug Allergy Unknown N/A 12/07/2013 Yes Iodinated Contrast Media - IV Dye [id number] Drug Allergy Unknown N/A 12/07 Yes Iodinated Contrast Media - Oral and [id number] Drug Allergy Unknown N/A Yes Iodinated Contrast- Oral and IV Dye [id number] Drug Allergy Unknown N/A Medications There is no data. 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 DANA STREET MD, Ot C79.89 SECONDARY MALIGNANT NEOPLASM OF OTHER SP DANA STREET MD, Ot D50.0 IRON DEFICIENCY ANEMIA SECONDARY TO BLOO DANA STREET MD, Ot D63.1 ANEMIA IN CHRONIC KIDNEY DISEASE DANA STREET MD, Ot D64.81 ANEMIA DUE TO ANTINEOPLASTIC CHEMOTHERAP DANA STREET MD, Ot I25.10 ATHSCL HEART DISEASE OF [place] CORONARY DANA STREET MD, Ot K21.0 GASTRO-ESOPHAGEAL REFLUX DISEASE WITH ES DANA STREET MD, Ot K44.9 DIAPHRAGMATIC HERNIA WITHOUT OBSTRUCTION XUN MD, ROSARIO-ARCELIA Ot N18.9 CHRONIC KIDNEY DISEASE, UNSPECIFIED DANA STREET MD, Ot Z51.11 ENCOUNTER FOR ANTINEOPLASTIC CHEMOTHERAP DANA STREET MD, Ot Z79.02 EDUCATIONAL TECHNOLOGY COORDINATOR (CURRENT) USE OF ANTITHROMBOTI DANA STREET MD, Ot Z79.82 EDUCATIONAL TECHNOLOGY COORDINATOR (CURRENT) USE OF ASPIRIN DANA STREET MD, Ot Z85.3 PERSONAL HISTORY OF MALIGNANT NEOPLASM O DANA STREET MD, Ot Z92.21 PERSONAL HISTORY OF ANTINEOPLASTIC CHEMO DANA STREET MD, Ot Z95.5 PRESENCE OF CORONARY ANGIOPLASTY IMPLANT DANA STREET MD, Ot C55 MALIGNANT NEOPLASM OF UTERUS, PART UNSPE DANA STREET MD, Ot C56.2 MALIGNANT NEOPLASM OF LEFT OVARY DANA STREET MD, Ot 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 DANA STREET MD, Ot 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 DANA STREET MD, Ot C79.89 SECONDARY MALIGNANT NEOPLASM OF OTHER SP DANA STREET MD, Ot D50.0 IRON DEFICIENCY ANEMIA SECONDARY TO BLOO DANA STREET MD, Ot D63.1 ANEMIA IN CHRONIC KIDNEY DISEASE DANA STREET MD, Ot D64.81 ANEMIA DUE TO ANTINEOPLASTIC CHEMOTHERAP DANA STREET MD, Ot I25.10 ATHSCL HEART DISEASE OF [place] CORONARY DANA STREET MD, Ot K21.0 GASTRO-ESOPHAGEAL REFLUX DISEASE WITH ES DANA STREET MD, Ot K44.9 DIAPHRAGMATIC HERNIA WITHOUT OBSTRUCTION DANA STREET MD, Ot N18.9 CHRONIC KIDNEY DISEASE, UNSPECIFIED DANA STREET MD, Ot Z51.11 ENCOUNTER FOR ANTINEOPLASTIC CHEMOTHERAP DANA STREET MD, Ot Z79.02 [facility] (CURRENT) USE OF ANTITHROMBOTI DANA STREET MD, Ot Z79.82 EDUCATIONAL TECHNOLOGY COORDINATOR (CURRENT) USE OF ASPIRIN DANA STREET MD, Ot Z85.3 PERSONAL HISTORY OF MALIGNANT NEOPLASM O DANA STREET MD, Ot Z95.5 PRESENCE OF CORONARY ANGIOPLASTY IMPLANT 08/12/[address] MD, Ot 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 MALIGNANT NEOPLASM OF UTERUS, PART UNSPE 08/12/[address] MD, Ot C56.2 MALIGNANT NEOPLASM OF LEFT OVARY 08/12/[address] MD, Ot 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 08/12/[address] MD, Ot 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 08/12/[address] MD, Ot C79.89 SECONDARY MALIGNANT NEOPLASM OF OTHER SP 08/12/[address] MD, Ot D50.0 IRON DEFICIENCY ANEMIA SECONDARY TO BLOO 08/12/[address] MD, Ot D63.1 ANEMIA IN CHRONIC KIDNEY DISEASE 08/12/[address] MD, Ot D64.81 ANEMIA DUE TO ANTINEOPLASTIC CHEMOTHERAP 08/12/[address] MD, Ot I25.10 ATHSCL HEART DISEASE OF [place] CORONARY 08/12/[address] MD, Ot K21.0 GASTRO-ESOPHAGEAL REFLUX DISEASE WITH ES 08/12/[address] MD, Ot K44.9 DIAPHRAGMATIC HERNIA WITHOUT OBSTRUCTION 08/12/[address] MD, Ot N18.9 CHRONIC KIDNEY DISEASE, UNSPECIFIED 08/12/[address] MD, Ot Z79.02 EDUCATIONAL TECHNOLOGY COORDINATOR (CURRENT) USE OF ANTITHROMBOTI 08/12/[address] MD, Ot Z79.82 EDUCATIONAL TECHNOLOGY COORDINATOR (CURRENT) USE OF ASPIRIN 08/12/[address] MD, Ot Z85.3 PERSONAL HISTORY OF MALIGNANT NEOPLASM O 08/12/[address] MD, Ot Z92.21 PERSONAL HISTORY OF ANTINEOPLASTIC CHEMO 08/12/[address] MD, Ot Z95.5 PRESENCE OF CORONARY ANGIOPLASTY IMPLANT 08/12/[address] MD, Ot C55 MALIGNANT NEOPLASM OF UTERUS, PART UNSPE 08/12/[address] MD, Ot C56.2 MALIGNANT NEOPLASM OF LEFT OVARY 08/12/[address] MD, Ot 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 08/12/[address] MD, Ot 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 08/12/[address] MD, Ot C79.89 SECONDARY MALIGNANT NEOPLASM OF OTHER SP 08/12/[address] MD, Ot D50.0 IRON DEFICIENCY ANEMIA SECONDARY TO BLOO 08/12/[address] MD, Ot D63.1 ANEMIA IN CHRONIC KIDNEY DISEASE 08/12/[address] MD, Ot D64.81 ANEMIA DUE TO ANTINEOPLASTIC CHEMOTHERAP 08/12/[address] MD, Ot I25.10 ATHSCL HEART DISEASE OF [place] CORONARY 08/12/[address] MD, Ot K21.0 GASTRO-ESOPHAGEAL REFLUX DISEASE WITH ES 08/12/[address] MD, Ot K44.9 DIAPHRAGMATIC HERNIA WITHOUT OBSTRUCTION 08/12/[address] MD, Ot N18.9 CHRONIC KIDNEY DISEASE, UNSPECIFIED 08/12/[address] MD, Ot Z45.2 ENCOUNTER FOR ADJUSTMENT AND MANAGEMENT 08/12/[address] MD, Ot Z79.02 EDUCATIONAL TECHNOLOGY COORDINATOR (CURRENT) USE OF ANTITHROMBOTI 08/12/[address] MD, Ot Z79.82 EDUCATIONAL TECHNOLOGY COORDINATOR (CURRENT) USE OF ASPIRIN 08/12/[address] MD, Ot Z85.3 PERSONAL HISTORY OF MALIGNANT NEOPLASM O 08/12/[address] MD, Ot Z92.21 PERSONAL HISTORY OF ANTINEOPLASTIC CHEMO 08/12/[address] MD, Ot Z95.5 PRESENCE OF CORONARY ANGIOPLASTY IMPLANT 08/12/1519 KATIA PARR MD, Ot 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 MALIGNANT NEOPLASM OF UTERUS, PART UNSPE 08/12/1519 KATIA PARR MD, Ot C56.2 MALIGNANT NEOPLASM OF LEFT OVARY 08/12/1519 KATIA PARR MD, Ot 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 08/12/1519 KESHAV MD, MONTALVO Ot 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 08/12/1519 KATIA PARR MD, Ot C79.89 SECONDARY MALIGNANT NEOPLASM OF OTHER SP 08/12/1519 KATIA PARR MD, Ot D50.0 IRON DEFICIENCY ANEMIA SECONDARY TO BLOO 08/12/1519 KATIA PARR MD, Ot D63.1 ANEMIA IN CHRONIC KIDNEY DISEASE 08/12/1519 KATIA PARR MD, Ot D64.81 ANEMIA DUE TO ANTINEOPLASTIC CHEMOTHERAP 08/12/1519 KATIA PARR MD, Ot I25.10 ATHSCL HEART DISEASE OF [place] CORONARY 08/12/1519 KATIA PARR MD, Ot K21.0 GASTRO-ESOPHAGEAL REFLUX DISEASE WITH ES 08/12/1519 KATIA PARR MD, Ot K44.9 DIAPHRAGMATIC HERNIA WITHOUT OBSTRUCTION 08/12/1519 KATIA PARR MD, Ot N18.9 CHRONIC KIDNEY DISEASE, UNSPECIFIED 08/12/1519 KATIA PARR MD, Ot Z51.11 ENCOUNTER FOR ANTINEOPLASTIC CHEMOTHERAP 08/12/1519 KATIA PARR MD, Ot Z79.02 EDUCATIONAL TECHNOLOGY COORDINATOR (CURRENT) USE OF ANTITHROMBOTI 08/12/1519 KATIA PARR MD, Ot Z79.82 EDUCATIONAL TECHNOLOGY COORDINATOR (CURRENT) USE OF ASPIRIN 08/12/1519 KATIA PARR MD, Ot Z85.3 PERSONAL HISTORY OF MALIGNANT NEOPLASM O 08/12/1519 KATIA PARR MD, Ot Z92.21 PERSONAL HISTORY OF ANTINEOPLASTIC CHEMO 08/12/1519 KATIA PARR MD Ot Z95.5 PRESENCE OF CORONARY ANGIOPLASTY IMPLANT 07/09/2010 Ot 530.19 07/09/2010 Ot 530.81 07/09/2010 Ot 553.3 07/03/2011 Ot 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 09/23/2011 Ot 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 09/23/2011 Ot 183.0 MALIGN NEOPL OVARY 09/23/2011 Ot 197.5 SEC MALIG DELPHINE LG BOWEL 09/23/2011 Ot 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 09/23/2011 Ot 285.9 ANEMIA NOS 09/23/2011 Ot V10.3 HX OF BREAST MALIGNANCY 09/23/2011 Ot V15.3 HX OF IRRADIATION 09/23/2011 Ot V45.77 ACQRD ABSENCE OF GENITAL ORGANS 09/23/2011 Ot V58.11 ENCOUNTER FOR ANTINEOPLASTIC CHEMOTHERAP 09/23/2011 Ot V58.69 OTH MED,LT, CURRENT USE 09/23/2011 Ot V87.41 PERSONAL HISTORY OF ANTINEOPLASTIC CHEMO 12/27/2011 Ot 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 12/27/2011 Ot 183.0 MALIGN NEOPL OVARY 12/27/2011 Ot 197.5 SEC MALIG DELPHINE LG BOWEL 12/27/2011 Ot 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 12/27/2011 Ot 285.9 ANEMIA NOS 12/27/2011 Ot V10.3 HX OF BREAST MALIGNANCY 12/27/2011 Ot V15.3 HX OF IRRADIATION 12/27/2011 Ot V45.77 ACQRD ABSENCE OF GENITAL ORGANS 12/27/2011 Ot V58.11 ENCOUNTER FOR ANTINEOPLASTIC CHEMOTHERAP 12/27/2011 Ot V58.69 OTH MED,LT, CURRENT USE 12/27/2011 Ot V87.41 PERSONAL HISTORY OF ANTINEOPLASTIC CHEMO 04/24/2012 Ot 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 04/24/2012 Ot 183.0 MALIGN NEOPL OVARY 04/24/2012 Ot 197.5 SEC MALIG DELPHINE LG BOWEL 04/24/2012 Ot 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 04/24/2012 Ot 285.9 ANEMIA NOS 04/24/2012 Ot 791.9 ABN URINE FINDINGS NEC 04/24/2012 Ot V10.3 HX OF BREAST MALIGNANCY 04/24/2012 Ot V15.3 HX OF IRRADIATION 04/24/2012 Ot V45.77 ACQRD ABSENCE OF GENITAL ORGANS 04/24/2012 Ot V58.69 OTH MED,LT, CURRENT USE 04/24/2012 Ot V87.41 PERSONAL HISTORY OF ANTINEOPLASTIC CHEMO 07/31/2012 Ot 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 07/31/2012 Ot 183.0 MALIGN NEOPL OVARY 07/31/2012 Ot 197.5 SEC MALIG DELPHINE LG BOWEL 07/31/2012 Ot 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 07/31/2012 Ot 285.9 ANEMIA NOS 07/31/2012 Ot 791.9 ABN URINE FINDINGS NEC 07/31/2012 Ot V10.3 HX OF BREAST MALIGNANCY 07/31/2012 Ot V15.3 HX OF IRRADIATION 07/31/2012 Ot V45.77 ACQRD ABSENCE OF GENITAL ORGANS 07/31/2012 Ot V58.69 OTH MED,LT, CURRENT USE 07/31/2012 Ot V58.81 FIT/ADJ VASCULAR CATHETER 07/31/2012 Ot V87.41 PERSONAL HISTORY OF ANTINEOPLASTIC CHEMO 12/27/2012 Ot 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 12/27/2012 Ot 183.0 MALIGN NEOPL OVARY 12/27/2012 Ot 197.5 SEC MALIG DELPHINE LG BOWEL 12/27/2012 Ot 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 12/27/2012 Ot 285.9 ANEMIA NOS 12/27/2012 Ot 791.9 ABN URINE FINDINGS NEC 12/27/2012 Ot V10.3 HX OF BREAST MALIGNANCY 12/27/2012 Ot V15.3 HX OF IRRADIATION 12/27/2012 Ot V45.77 ACQRD ABSENCE OF GENITAL ORGANS 12/27/2012 Ot V58.69 OTH MED,LT, CURRENT USE 12/27/2012 Ot V58.81 FIT/ADJ VASCULAR CATHETER 12/27/2012 Ot V87.41 PERSONAL HISTORY OF ANTINEOPLASTIC CHEMO 01/17/2013 SUZIE ZUÑIGA MD Ot 278.00 OBESITY, NOS 01/17/2013 SUZIE ZUÑIGA MD Ot 401.9 HYPERTENSION NOS 01/17/2013 SUZIE ZUÑIGA MD Ot 414.01 CORONARY ATHEROSCLEROSIS OF [place] CORON 01/17/2013 SUZIE ZUÑIGA MD Ot 786.09 RESPIRATORY ABNORM NEC 01/17/2013 SUZIE ZUÑIGA MD Ot 786.50 CHEST PAIN NOS 01/17/2013 SUZIE ZUÑIGA MD Ot V10.3 HX OF BREAST MALIGNANCY 01/17/2013 SUZIE ZUÑIGA MD Ot V58.69 OTH MED,LT,CURRENT USE 01/17/2013 SUZIE ZUÑIGA MD Ot V85.41 BODY MASS INDEX 40.0-44.9, ADULT 03/09/2013 FERNY NICHOLSON MD Ot 530.11 REFLUX ESOPHAGITIS 03/09/2013 FERNY NICHOLSON MD Ot 553.3 DIAPHRAGMATIC HERNIA 03/09/2013 FERNY NICHOLSON MD Ot 562.10 DIVERTICULOSIS COLON (W/O MENT OF HEMORR 03/09/2013 FERNY NICHOLSON MD Ot 569.85 ANGIODYSPLASIA OF INTESTINE WITH HEMORRH 03/30/2013 FERNY NICHOLSON MD Ot 530.11 REFLUX ESOPHAGITIS 03/30/2013 FERNY NICHOLSON MD Ot 530.3 ESOPHAGEAL STRICTURE 04/17/[address] MD Ot 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 04/17/[address] MD Ot 183.0 MALIGN NEOPL OVARY 04/17/[address] MD Ot 197.5 SEC MALIG DELPHINE LG BOWEL 04/17/[address] MD Ot 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 04/17/[address] MD Ot 285.9 ANEMIA NOS 04/17/[address] MD Ot 791.9 ABN URINE FINDINGS NEC 04/17/[address] MD, Ot V10.3 HX OF BREAST MALIGNANCY 04/17/[address] MD, Ot V15.3 HX OF IRRADIATION 04/17/[address] MD, Ot V45.77 ACQRD ABSENCE OF GENITAL ORGANS 04/17/[address] MD, Ot V58.69 OTH MED,LT,CURRENT USE 04/17/[address] MD Ot V58.81 FIT/ADJ VASCULAR CATHETER 04/17/[address] MD Ot V87.41 PERSONAL HISTORY OF ANTINEOPLASTIC CHEMO 06/22/2013 FERNY NICHOLSON MD Ot 530.11 REFLUX ESOPHAGITIS 06/22/2013 FERNY NICHOLSON MD Ot 530.3 ESOPHAGEAL STRICTURE 08/01/[address] MD Ot 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 08/01/[address] MD Ot 183.0 MALIGN NEOPL OVARY 08/01/[address] MD Ot 197.5 SEC MALIG DELPHINE LG BOWEL 08/01/[address] MD Ot 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 08/01/[address] MD Ot 285.9 ANEMIA NOS 08/01/[address] MD Ot 791.9 ABN URINE FINDINGS NEC 08/01/[address] MD Ot V10.3 HX OF BREAST MALIGNANCY 08/01/[address] MD Ot V15.3 HX OF IRRADIATION 08/01/[address] MD Ot V45.77 ACQRD ABSENCE OF GENITAL ORGANS 08/01/[address] MD Ot V58.69 OTH MED,LT,CURRENT USE 08/01/[address] MD Ot V58.81 FIT/ADJ VASCULAR CATHETER 08/01/[address] MD Ot V87.41 PERSONAL HISTORY OF ANTINEOPLASTIC CHEMO 10/05/2013 FERNY NICHOLSON MD Ot 530.11 REFLUX ESOPHAGITIS 10/05/2013 FERNY NICHOLSON MD Ot 530.3 ESOPHAGEAL STRICTURE 11/21/[address] MD Ot 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 11/21/[address] MD Ot 183.0 MALIGN NEOPL OVARY 11/21/[address] MD Ot 197.5 SEC MALIG DELPHINE LG BOWEL 11/21/[address] MD Ot 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 11/21/[address] MD Ot 285.9 ANEMIA NOS 11/21/[address] MD Ot 791.9 ABN URINE FINDINGS NEC 11/21/[address] MD Ot V10.3 HX OF BREAST MALIGNANCY 11/21/[address] MD Ot V15.3 HX OF IRRADIATION 11/21/[address] MD Ot V45.77 ACQRD ABSENCE OF GENITAL ORGANS 11/21/[address] MD Ot V58.69 OTH MED,LT,CURRENT USE 11/21/[address] MD Ot V58.81 FIT/ADJ VASCULAR CATHETER 11/21/[address] MD Ot V87.41 PERSONAL HISTORY OF ANTINEOPLASTIC CHEMO 12/07/2013 FERNY NICHOLSON MD Ot 530.11 REFLUX ESOPHAGITIS 12/07/2013 FERNY NICHOLSON MD Ot 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 04/08/[address] MD Ot 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 04/08/[address] MD Ot 183.0 MALIGN NEOPL OVARY 04/08/[address] MD Ot 197.5 SEC MALIG DELPHINE LG BOWEL 04/08/[address] MD Ot 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 04/08/[address] MD Ot 285.9 ANEMIA NOS 04/08/2014 JAD LIU, DANA Ot 791.9 ABN URINE FINDINGS NEC 04/08/2014 JAD LIU, DANA Ot V10.3 HX OF BREAST MALIGNANCY 04/08/2014 JAD LIU, DANA Ot V15.3 HX OF IRRADIATION 04/08/2014 JAD LIU, DANA Ot V45.77 ACQRD ABSENCE OF GENITAL ORGANS 04/08/2014 JAD LIU, DANA Moyer V58.69 OTH MED,LT,CURRENT USE 04/08/2014 JAD LIU, DANA Ot V58.81 FIT/ADJ VASCULAR CATHETER 04/08/2014 JAD LIU, DANA Ot V87.41 PERSONAL HISTORY OF ANTINEOPLASTIC CHEMO 04/09/2014 BHARAT LIU, FERNY S Ot 530.81 ESOPHAGEAL REFLUX 04/09/2014 BHARAT LIU, FERNY S Ot 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 07/27/2014 JAD LIU, DANA Ot 182.0 07/27/2014 JAD LIU, DANA Ot 183.0 07/27/2014 JAD LIU, DANA Ot 197.5 07/27/2014 JAD LIU, DANA Ot 198.89 07/27/2014 JAD LIU, DANA Ot 285.9 07/27/2014 JAD LIU, DANA Ot 791.9 07/27/2014 JAD LIU, DANA Ot V10.3 07/27/2014 JAD LIU, DANA Ot V15.3 07/27/2014 JAD LIU, DANA Ot V45.77 07/27/2014 JAD LIU, DANA Ot V58.69 07/27/2014 JAD LIU, DANA Ot V58.81 07/27/2014 JAD LIU, DANA Ot V87.41 09/27/2014 JAD LIU, DANA Ot 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 09/27/2014 JAD LIU, DANA Ot 183.0 MALIGN NEOPL OVARY 09/27/2014 JAD LIU, DANA Ot 197.5 SEC MALIG DELPHINE LG BOWEL 09/27/2014 JAD LIU, DANA Ot 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 09/27/2014 JAD LIU, DANA Ot 285.9 ANEMIA NOS 09/27/2014 JAD LIU, DANA Ot 791.9 ABN URINE FINDINGS NEC 09/27/2014 JAD LIU, DANA Ot V10.3 HX OF BREAST MALIGNANCY 09/27/2014 JAD LIU, DANA Ot V15.3 HX OF IRRADIATION 09/27/2014 JAD LIU, DANA Ot V45.77 ACQRD ABSENCE OF GENITAL ORGANS 09/27/2014 JAD LIU, DANA Moyer V58.69 OTH MED,LT,CURRENT USE 09/27/2014 JAD LIU, DANA Ot V58.81 FIT/ADJ VASCULAR CATHETER 09/27/2014 JAD LIU, DANA Ot V87.41 PERSONAL HISTORY OF ANTINEOPLASTIC CHEMO 10/02/2014 JAD LIU, DANA Ot 182.0 10/02/2014 JAD LIU, DANA Ot 183.0 10/02/2014 JAD LIU, DANA Ot 197.5 10/02/2014 AJD LIU, DANA Ot 198.89 10/02/2014 JAD LIU, DANA Ot 285.9 10/02/2014 JAD LIU, DANA Ot 791.9 10/02/2014 JAD LUI, DANA Ot V10.3 10/02/2014 JAD LIU, DANA Ot V15.3 10/02/2014 JAD LIU, DANA Ot V45.77 10/02/2014 JAD LIU, DANA Ot V58.69 10/02/2014 JAD LIU, DANA Ot V58.81 10/02/2014 JAD LIU, DANA Ot V87.41 10/02/2014 JAD LIU, DANA Ot 182.0 10/02/2014 JAD LIU, DANA Ot 183.0 10/02/2014 JAD LIU, DANA Ot 197.5 10/02/2014 JAD LIU, DANA Ot 198.89 10/02/2014 JAD LIU, DANA Ot 285.9 10/02/2014 JAD LIU, DANA Ot 791.9 10/02/2014 JAD LIU, DANA Ot V10.3 10/02/2014 JAD LIU, DANA Ot V15.3 10/02/2014 JAD LIU, ROSARIO-ARCELIA Ot V45.77 10/02/2014 JAD LIU, ROSARIO-ARCELIA Ot V58.69 10/02/2014 JAD LIU, ROSARIO-ARCELIA Ot V58.81 10/02/2014 JAD LIU, ROSARIO-ARCELIA Ot V87.41 10/02/2014 JAD LIU, ROSARIO-ARCELIA Ot 182.0 10/02/2014 JAD LIU, ROSARIO-ARCELIA Ot 183.0 10/02/2014 JAD LIU, ROSARIO-ARCELIA Ot 197.5 10/02/2014 JAD LIU, ROSARIO-ARCELIA Ot 198.89 10/02/2014 JAD LIU, ROSARIO-ARCELIA Ot 285.9 10/02/2014 JAD LIU, ROSARIO-ARCELIA Ot 791.9 10/02/2014 JAD LIU, ROSARIO-ARCELIA Ot V10.3 10/02/2014 JAD LIU, ROSARIO-ARCELIA Ot V15.3 10/02/2014 JAD LIU, ROSARIO-ARCELIA Ot V45.77 10/02/2014 JAD LIU, ROSARIO-ARCELIA Ot V58.69 10/02/2014 JAD LIU, ROSARIO-ARCELIA Ot V58.81 10/02/2014 JAD LIU, ROSARIO-ARCELIA Ot V87.41 10/03/2014 JAD LIU, ROSARIO-ARCELIA Ot 182.0 10/03/2014 JAD LIU, ROSARIO-ARCELIA Ot 183.0 10/03/2014 JAD LIU, ROSARIO-ARCELIA Ot 197.5 10/03/2014 JAD LIU, ROSARIO-ARCELIA Ot 198.89 10/03/2014 JAD LIU, ROSARIO-ARCELIA Ot 285.9 10/03/2014 JAD LIU, ROSARIO-ARCELIA Ot 791.9 10/03/2014 JAD LIU, ROSARIO-ARCELIA Ot V10.3 10/03/2014 JAD LIU, ROSARIO-ARCELIA Ot V15.3 10/03/2014 JAD LIU, ROSARIO-ARCELIA Ot V45.77 10/03/2014 JAD LIU, ROSARIO-ARCELIA Ot V58.69 10/03/2014 JAD LIU, ROSARIO-ARCELIA Ot V58.81 10/03/2014 JAD LIU, ROSARIO-ARCELIA Ot V87.41 10/25/2014 Ot 379.41 10/25/2014 Ot 784.0 10/25/2014 Ot 111.9 10/25/2014 Ot V10.3 10/25/2014 Ot V58.69 10/25/2014 Ot V67.1 10/25/2014 Ot V67.2 10/25/2014 Ot V10.3 10/25/2014 Ot V76.11 10/25/2014 Ot 553.3 10/25/2014 Ot V10.3 10/25/2014 Ot V58.69 10/25/2014 Ot V67.1 10/25/2014 Ot V67.2 10/25/2014 Ot 786.2 10/25/2014 Ot V10.3 10/25/2014 Ot V67.1 10/25/2014 Ot V67.2 10/25/2014 Ot 553.3 10/25/2014 Ot 610.3 10/25/2014 Ot V10.3 10/25/2014 Ot V58.69 10/25/2014 Ot V67.1 10/25/2014 Ot V67.2 10/25/2014 Ot 133.0 10/25/2014 Ot 553.3 10/25/2014 Ot 786.2 10/25/2014 Ot V10.3 10/25/2014 Ot V58.69 10/25/2014 Ot V67.1 10/25/2014 Ot V67.2 10/25/2014 Ot V10.3 10/25/2014 Ot V76.11 10/25/2014 Ot 174.9 10/25/2014 Ot V76.12 10/25/2014 Ot 174.9 10/25/2014 Ot 553.3 10/25/2014 Ot 793.6 10/25/2014 Ot 795.89 10/25/2014 Ot V10.3 10/25/2014 Ot V58.69 10/25/2014 Ot V67.1 10/25/2014 Ot V67.2 10/25/2014 Ot 182.0 10/25/2014 Ot 553.3 10/25/2014 Ot V10.3 10/25/2014 Ot V15.3 10/25/2014 Ot V58.69 10/25/2014 Ot V87.41 10/25/2014 Ot 182.0 10/25/2014 Ot V10.3 10/25/2014 Ot 182.0 10/25/2014 Ot V72.83 10/25/2014 Ot V74.8 10/25/2014 Ot 174.9 10/25/2014 Ot 530.11 10/25/2014 Ot 562.10 10/25/2014 Ot 182.0 10/25/2014 Ot 183.0 10/25/2014 Ot 197.5 10/25/2014 Ot 198.89 10/25/2014 Ot 285.9 10/25/2014 Ot 287.5 10/25/2014 Ot V10.3 10/25/2014 Ot V15.3 10/25/2014 Ot V45.77 10/25/2014 Ot V58.69 10/25/2014 Ot V87.41 10/25/2014 Ot V72.84 10/25/2014 Ot 182.0 10/25/2014 Ot 183.0 10/25/2014 Ot V10.3 10/25/2014 Ot V76.11 10/25/2014 Ot 183.0 10/25/2014 Ot 786.09 10/25/2014 Ot 786.09 10/25/2014 JAD LIU, MARLENEARCELIA Ot 183.0 10/25/2014 BHARAT LIU, FERNY S Ot V72.84 10/25/2014 BHARAT LIU, FERNY S Ot V72.84 10/25/2014 BHARAT LIU, FERNY S Ot V72.84 10/25/2014 JAD LIU, [facility] Ot 721.0 10/25/2014 JAD LIU, MARLENEARCELIA Ot V76.12 10/25/2014 BHARAT LIU, FERNY S Ot V72.84 10/25/2014 BHARAT LIU, FERNY S Ot V72.84 10/25/2014 BHARAT LIU, FERNY S Ot V72.84 10/25/2014 ALFREDO CADENA Ot 585.3 10/25/2014 ALFREDO CADENA Ot 793.5 10/25/2014 BHARAT LIU, FERNY S Ot 530.85 10/25/2014 BHARAT LIU, FERNY S Ot V72.84 10/25/2014 JAD LIU, MARLENEARCELIA Ot 182.0 10/25/2014 JAD LIU, ROSARIOARCELIA Ot 183.0 10/25/2014 JAD LIU, MARLENEARCELIA Ot 197.5 10/25/2014 [facility] 198.89 10/25/2014 JAD LIU, ROSARIOARCELIA Ot 285.9 10/25/2014 JAD LIU, [facility] Ot 791.9 10/25/2014 JAD LIU, MARLENE-ARCELIA Ot V10.3 10/25/2014 JAD LIU, MARLENE-ARCELIA Ot V15.3 10/25/2014 JAD LIU, MARLENE-ARCELIA Ot V45.77 10/25/2014 JAD LIU, MARLENE-ARCELIA Ot V58.69 10/25/2014 JAD LIU, MARLENE-ARCELIA Ot V58.81 10/25/2014 JAD LIU, DANA Ot V87.41 10/26/2014 JAD LIU, MARLENE-ARCELIA Ot 174.9 10/26/2014 JAD LIU, DANA Ot V76.11 10/29/2014 JAD LIU, MARLENE-ARCELIA Ot 182.0 10/29/2014 JAD LIU, MARLENE-ARCELIA Ot 183.0 10/29/2014 JAD LIU, DANA Ot 197.5 10/29/2014 JAD LIU, DANA Ot 198.89 10/29/2014 JAD LIU, DANA Ot 285.9 10/29/2014 JAD LIU, DANA Ot 791.9 10/29/2014 JAD LIU, MARLENE-ARCELIA Ot V10.3 10/29/2014 JAD LIU, MARLENE-ARCELIA Ot V15.3 10/29/2014 JAD LIU, DANA Ot V45.77 10/29/2014 JAD LIU, DANA Ot V58.69 10/29/2014 JAD LIU, DANA Ot V58.81 10/29/2014 JAD LIU, DANA Ot V87.41 11/07/2014 JAD LIU, DANA Ot 174.9 11/07/2014 JAD LIU, DANA Ot V76.11 12/29/2014 JAD LIU, MARLENE-ARCELIA Ot 183.0 12/31/2014 JAD LIU, DANA Ot 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 12/31/2014 JAD LIU, DANA Ot 183.0 MALIGN NEOPL OVARY 12/31/2014 JAD LIU, DANA Ot 197.5 SEC MALIG DELPHINE LG BOWEL 12/31/2014 JAD LIU, DANA Ot 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 12/31/2014 JAD LIU, DANA Ot 285.9 ANEMIA NOS 12/31/2014 JAD LIU, DANA Ot 791.9 ABN URINE FINDINGS NEC 12/31/2014 JAD LIU, DANA Ot V10.3 HX OF BREAST MALIGNANCY 12/31/2014 JAD LIU, DANA Ot V15.3 HX OF IRRADIATION 12/31/2014 JAD LIU, DANA Ot V45.77 ACQRD ABSENCE OF GENITAL ORGANS 12/31/2014 JAD LIU, DANA Ot V58.69 OTH MED,LT,CURRENT USE 12/31/2014 JAD LIU, DANA Ot V58.81 FIT/ADJ VASCULAR CATHETER 12/31/2014 JAD LIU, DANA Ot V87.41 PERSONAL HISTORY OF ANTINEOPLASTIC CHEMO 01/08/2015 JAD LIU, DANA Ot 182.0 01/08/2015 JAD LIU, DANA Ot 183.0 01/08/2015 JAD LIU, DANA Ot 197.5 01/08/2015 JAD LIU, DANA Ot 198.89 01/08/2015 JAD LIU, DANA Ot 285.9 01/08/2015 JDA LIU, DANA Ot 791.9 01/08/2015 JAD LIU, DANA Ot V10.3 01/08/2015 JAD LIU, DANA Ot V15.3 01/08/2015 JAD LIU, DANA Ot V45.77 01/08/2015 JAD LIU, DANA Ot V58.69 01/08/2015 JAD LIU, DANA Ot V58.81 01/08/2015 JAD LIU, DANA Ot V87.41 01/11/2015 JAD LIU, DANA Ot 182.0 01/11/2015 JAD LIU, DANA Ot 183.0 01/11/2015 JAD LIU, DANA Ot 197.5 01/11/2015 JAD LIU, DANA Ot 198.89 01/11/2015 JAD LIU, DANA Ot 285.9 01/11/2015 JAD LIU, DANA Ot 791.9 01/11/2015 JAD LIU, DANA Ot V10.3 01/11/2015 JAD LIU, DANA Ot V15.3 01/11/2015 JAD LIU, DANA Ot V45.77 01/11/2015 JAD LIU, ROSARIO-ARCELIA Ot V58.69 01/11/2015 JAD LIU, ROSARIO-ARCELIA Ot V58.81 01/11/2015 JAD LIU, ROSARIO-ARCELIA Ot V87.41 01/15/2015 JAD LIU, ROSARIO-ARCELIA Ot 182.0 01/15/2015 JAD LIU, ROSARIO-ARCELIA Ot 183.0 01/15/2015 JAD LIU, ROSARIO-ARCELIA Ot 197.5 01/15/2015 JAD LIU, ROSARIO-ARCELIA Ot 198.89 01/15/2015 JAD LIU, ROSARIO-ARCELIA Ot 285.9 01/15/2015 JAD LIU, ROSARIO-ARCELIA Ot 791.9 01/15/2015 JAD LIU, ROSARIO-ARCELIA Ot V10.3 01/15/2015 JAD LIU, ROSARIO-ARCELIA Ot V15.3 01/15/2015 JAD LUI, ROSARIO-ARCELIA Ot V45.77 01/15/2015 JAD LIU, ROSARIO-ARCELIA Ot V58.69 01/15/2015 JAD LIU, ROSARIO-ARCELIA Ot V58.81 01/15/2015 JAD LIU, ROSARIO-ARCELIA Ot V87.41 01/16/2015 JAD LIU, ROSARIO-ARCELIA Ot 182.0 01/16/2015 JAD LIU, ROSARIO-ARCELIA Ot 183.0 01/16/2015 JAD LIU, ROSARIO-ARCELIA Ot 197.5 01/16/2015 JAD LIU, ROSARIO-ARCELIA Ot 198.89 01/16/2015 JAD LIU, ROSARIO-ARCELIA Ot 285.9 01/16/2015 JAD LIU, ROSARIO-ARCELIA Ot 791.9 01/16/2015 JAD LIU, ROSARIO-ARCELIA Ot V10.3 01/16/2015 JAD LIU, ROSARIO-ARCELIA Ot V15.3 01/16/2015 JAD LIU, ROSARIO-ARCELIA Ot V45.77 01/16/2015 JAD LIU, ROSARIO-ARCELIA Ot V58.69 01/16/2015 JAD LIU, ROSARIO-ARCELIA Ot V58.81 01/16/2015 JAD LIU, ROSARIO-ARCELIA Ot V87.41 01/17/2015 JAD LIU, ROSARIO-ARCELIA Ot 183.0 02/05/2015 JAD LIU, ROSARIO-ARCELIA Ot 182.0 02/05/2015 JAD LIU, ROSARIO-ARCELIA Ot 183.0 02/05/2015 JAD LIU, ROSARIO-ARCELIA Ot 197.5 02/05/2015 JAD LIU, ROSARIO-ARCELIA Ot 198.89 02/05/2015 JAD LIU, ROSARIO-ARCELIA Ot 285.9 02/05/2015 JAD LIU, ROSARIO-ARCELIA Ot 791.9 02/05/2015 JAD LIU, ROSARIO-ARCELIA Ot V10.3 02/05/2015 JAD LIU, ROSARIO-ARCELIA Ot V15.3 02/05/2015 JAD LIU, ROSARIO-ARCELIA Ot V45.77 02/05/2015 JAD LIU, ROSARIO-ARCELIA Ot V58.11 02/05/2015 JAD LIU, ROSARIO-ARCELIA Ot V58.69 02/05/2015 JAD LIU, ROSARIO-ARCELIA Ot V58.81 02/05/2015 JAD LIU, ROSARIO-ARCELIA Ot V87.41 02/05/2015 BAIMA, NALINI L [employer] Ot 272.4 02/05/2015 BAIMA, NALINI L SHEET METAL ERECTOR Ot 401.9 02/05/2015 BAIMA, NALINI L SHEET METAL ERECTOR Ot 414.9 02/05/2015 BAIMA, NALINI L SHEET METAL ERECTOR Ot 437.9 02/25/2015 BAIMA, NALINI L SHEET METAL ERECTOR Ot 272.4 02/25/2015 BAIMA, NALINI L SHEET METAL ERECTOR Ot 401.9 02/25/2015 BAIMA, NALINI L SHEET METAL ERECTOR Ot 414.9 02/25/2015 BAIMA, NALINI L SHEET METAL ERECTOR Ot 437.9 02/26/2015 BAIMA, NALINI L SHEET METAL ERECTOR Ot 272.4 02/26/2015 BAIMA, NALINI L SHEET METAL ERECTOR Ot 401.9 02/26/2015 BAIMA, NALINI L SHEET METAL ERECTOR Ot 414.00 02/26/2015 BAIMA, NALINI L SHEET METAL ERECTOR Ot 437.9 03/05/2015 JAD LIU, ROSARIO-ARCELIA Ot 182.0 03/05/2015 JAD LIU, ROSARIO-ARCELIA Ot 183.0 03/05/2015 JAD LIU, ROSARIO-ARCELIA Ot 197.5 03/05/2015 JAD LIU, ROSARIO-ARCELIA Ot 198.89 03/05/2015 JAD LIU, ROSARIO-ARCELIA Ot 285.9 03/05/2015 JAD LIU, ROSARIO-ARCELIA Ot 791.9 03/05/2015 JAD LIU, MARLENE-ARCELIA Ot V10.3 03/05/2015 JAD LIU, MARLENE-ARCELIA Ot V15.3 03/05/2015 JAD LIU, ROSARIO-ARCELIA Ot V45.77 03/05/2015 JAD LIU, ROSARIO-ARCELIA Ot V58.11 03/05/2015 JAD LIU, DANA Ot V58.69 03/05/2015 JAD LIU, MRALENE-ARCELIA Ot V58.81 03/05/2015 JAD LIU, DANA Ot V87.41 03/09/2015 CORYMA, NALINI L SHEET METAL ERECTOR Ot 272.4 03/09/2015 CORYMA, NALINI L SHEET METAL ERECTOR Ot 401.9 03/09/2015 BAIMA, NALINI L SHEET METAL ERECTOR Ot 414.00 03/09/2015 JAZ, NALINI L SHEET METAL ERECTOR Ot 437.9 03/19/2015 JAD LIU, MARLENE-ARCELIA Ot 182.0 03/19/2015 JAD LIU, MARLENE-ARCELIA Ot 183.0 03/19/2015 JAD LIU, DANA Ot 197.5 03/19/2015 JAD LIU, DANA Ot 198.89 03/19/2015 JAD LIU, MARLENE-ARCELIA Ot 285.9 03/19/2015 JAD LIU, ROSARIO-ARCELAI Ot 791.9 03/19/2015 JAD LIU, MARLENE-ARCELIA Ot V10.3 03/19/2015 JAD LIU, MARLENE-ARCELIA Ot V15.3 03/19/2015 JAD LIU, DANA Ot V45.77 03/19/2015 JAD LIU, DANA Ot V58.11 03/19/2015 JAD LIU, DANA Ot V58.69 03/19/2015 JAD LIU, MARLENE-ARCELIA Ot V58.81 03/19/2015 JAD LIU, DANA Ot V87.41 04/05/2015 JAD LIU, MARLENE-ARCELIA Ot 174.9 04/05/2015 JAD LIU, DANA Ot 183.0 04/15/2015 JAD LIU, MARLENE-ARCELIA Ot 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 04/15/2015 JAD LIU, DANA Ot 183.0 MALIGN NEOPL OVARY 04/15/2015 JAD LIU, DANA Ot 197.5 SEC MALIG DELPHINE LG BOWEL 04/15/2015 JAD LIU, DANA Ot 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 04/15/2015 JAD LIU, DANA Ot 285.9 ANEMIA NOS 04/15/2015 JAD LIU, DANA Ot 791.9 ABN URINE FINDINGS NEC 04/15/2015 JAD LIU, DANA Ot V10.3 HX OF BREAST MALIGNANCY 04/15/2015 JAD LIU, DANA Ot V15.3 HX OF IRRADIATION 04/15/2015 JAD LUI, DANA Ot V45.77 ACQRD ABSENCE OF GENITAL ORGANS 04/15/2015 JAD LIU, DANA Ot V58.11 ENCOUNTER FOR ANTINEOPLASTIC CHEMOTHERAP 04/15/2015 JAD LIU, DANA Moyer V58.69 OTH MED,LT,CURRENT USE 04/15/2015 JAD LIU, DANA Ot V58.81 FIT/ADJ VASCULAR CATHETER 04/15/2015 JAD LIU, DANA Ot V87.41 PERSONAL HISTORY OF ANTINEOPLASTIC CHEMO 04/22/2015 JAD LIU, DANA Ot 182.0 04/22/2015 JAD LIU, DANA Ot 183.0 04/22/2015 JAD LIU, DANA Ot 197.5 04/22/2015 JAD LIU, DANA Ot 198.89 04/22/2015 JAD LIU, DANA Ot 285.9 04/22/2015 JAD LIU, DANA Ot 791.9 04/22/2015 JAD LIU, DANA Ot V10.3 04/22/2015 JAD LIU, DANA Ot V15.3 04/22/2015 JAD LIU, DANA Ot V45.77 04/22/2015 JAD LIU, DANA Ot V58.11 04/22/2015 JAD LIU, DANA Ot V58.69 04/22/2015 JAD LIU, DANA Ot V58.81 04/22/2015 JAD LIU, DANA Ot V87.41 04/22/2015 JAD LIU, DANA Ot 182.0 04/22/2015 JAD LIU, DANA Ot 183.0 04/22/2015 JAD LIU, DANA Ot 197.5 04/22/2015 JAD LIU, DANA Ot 198.89 04/22/2015 JAD LIU, DANA Ot 285.9 04/22/2015 JAD LIU, ROSARIO-ARCELIA Ot 791.9 04/22/2015 JAD LIU, ROSARIO-ARCELIA Ot V10.3 04/22/2015 JAD LIU, ROSARIO-ARCELIA Ot V15.3 04/22/2015 JAD LIU, ROSARIO-ARCELIA Ot V45.77 04/22/2015 JAD LIU, ROSARIO-ARCELIA Ot V58.11 04/22/2015 JAD LIU, ROSARIO-ARCELIA Ot V58.69 04/22/2015 JAD LIU, ROSARIO-ARCELIA Ot V58.81 04/22/2015 JAD LIU, ROSARIO-ARCELIA Ot V87.41 04/24/2015 JAD LIU, ROSARIO-ARCELIA Ot 174.9 04/24/2015 JAD LIU, ROSARIO-ARCELIA Ot 183.0 04/30/2015 JAD LIU, ROSARIO-ARCELIA Ot 182.0 04/30/2015 JAD LIU, ROSARIO-ARCELIA Ot 183.0 04/30/2015 JAD LIU, ROSARIO-ARCELIA Ot 197.5 04/30/2015 JAD LIU, ROSARIO-ARCELIA Ot 198.89 04/30/2015 JAD LIU, ROSARIO-ARCELIA Ot 285.9 04/30/2015 JAD LIU, ROSARIO-ARCELIA Ot 791.9 04/30/2015 JAD LIU, ROSARIO-ARCELIA Ot V10.3 04/30/2015 JAD LIU, ROSARIO-ARCELIA Ot V15.3 04/30/2015 JAD LIU, ROSARIO-ARCELIA Ot V45.77 04/30/2015 JAD LIU, ROSARIO-ARCELIA Ot V58.11 04/30/2015 JAD LIU, ROSARIO-ARCELIA Ot V58.69 04/30/2015 JAD LIU, ROSARIO-ARCELIA Ot V58.81 04/30/2015 JAD LIU, ROSARIO-ARCELIA Ot V87.41 05/29/2015 JAD LIU, ROSARIO-ARCELIA Ot 182.0 05/29/2015 JAD LIU, ROSARIO-ARCELIA Ot 183.0 05/29/2015 JAD LIU, ROSARIO-ARCELIA Ot 197.5 05/29/2015 JAD LIU, ROSARIO-ARCELIA Ot 198.89 05/29/2015 JAD LIU, ROSARIO-ARCELIA Ot 285.9 05/29/2015 JAD LIU, ROSARIO-ARCELIA Ot 791.9 05/29/2015 JAD LIU, ROSARIO-ARCELIA Ot V10.3 05/29/2015 JAD LIU, ROSARIO-ARCELIA Ot V15.3 05/29/2015 JAD LIU, DANA Ot V45.77 05/29/2015 JAD LIU, DANA Ot V58.69 05/29/2015 JAD LIU, DANA Ot V58.81 05/29/2015 JAD LIU, DANA Ot V87.41 06/06/2015 BHARAT LIU, FERNY S Ot 530.11 REFLUX ESOPHAGITIS 06/12/2015 JAD LIU, DANA Ot 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 06/12/2015 JAD LIU, DANA Ot 183.0 MALIGN NEOPL OVARY 06/12/2015 JAD LIU, DANA Ot 197.5 SEC MALIG DELPHINE LG BOWEL 06/12/2015 JAD LIU, DANA Ot 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 06/12/2015 JAD LIU, DANA Ot 285.9 ANEMIA NOS 06/12/2015 JAD LIU, DANA Ot 791.9 ABN URINE FINDINGS NEC 06/12/2015 JAD LIU, DANA Ot V10.3 HX OF BREAST MALIGNANCY 06/12/2015 JAD LIU, DANA Ot V15.3 HX OF IRRADIATION 06/12/2015 JAD LIU, DANA Ot V45.77 ACQRD ABSENCE OF GENITAL ORGANS 06/12/2015 JAD LIU, DANA Ot V58.69 OTH MED,LT,CURRENT USE 06/12/2015 JAD LIU, DANA Ot V58.81 FIT/ADJ VASCULAR CATHETER 06/12/2015 JAD LIU, DANA Ot V87.41 PERSONAL HISTORY OF ANTINEOPLASTIC CHEMO 06/17/2015 JAD LIU, DANA Ot 182.0 06/17/2015 JAD LIU, DANA Ot 183.0 06/17/2015 JAD LIU, DANA Ot 197.5 06/17/2015 JAD LIU, DANA Ot 198.89 06/17/2015 JAD LIU, DANA Ot 285.9 06/17/2015 JAD LIU, DANA Ot 791.9 06/17/2015 JAD LIU, DANA Ot V10.3 06/17/2015 JAD LIU, DANA Ot V15.3 06/17/2015 JAD LIU, DANA Ot V45.77 06/17/2015 JAD LIU, MARLENE-ARCELIA Ot V58.69 06/17/2015 JAD LIU, MARLENE-ARCELIA Ot V58.81 06/17/2015 JAD LIU, MARLENE-ARCELIA Ot V87.41 07/08/2015 JAD LIU, MARLENE-ARCELIA Ot C50.919 07/08/2015 JAD LIU, ROSARIO-ARCELIA Ot C56.9 07/16/2015 JAD LIU, ROSARIO-ARCELIA Ot C50.919 07/16/2015 JAD LIU, ROSARIO-ARCELIA Ot C56.9 07/17/2015 JAD LIU, ROSARIO-ARCELIA Ot T85.698A 07/19/2015 JAD LIU, ROSARIO-ARCELIA Ot T85.698A 08/12/2015 JAD LIU, ROSARIO-ARCELIA Ot 182.0 08/12/2015 JAD LIU, ROSARIO-ARCELIA Ot 183.0 08/12/2015 JAD LIU, ROSARIO-ARCELIA Ot 197.5 08/12/2015 JAD LIU, ROSARIO-ARCELIA Ot 198.89 08/12/2015 JAD LIU, ROSARIO-ARCELIA Ot 285.9 08/12/2015 JAD LIU, ROSARIO-ARCELIA Ot 791.9 08/12/2015 JAD LIU, ROSARIO-ARCELIA Ot V10.3 08/12/2015 JAD LIU, ROSARIO-ARCELIA Ot V15.3 08/12/2015 JAD LIU, MARLENE-ARCELIA Ot V45.77 08/12/2015 JAD LIU, MARLENE-ARCELIA Ot V58.69 08/12/2015 JAD LIU, MARLENE-ARCELIA Ot V58.81 08/12/2015 JAD LIU, MARLENE-ARCELIA Ot V87.41 08/27/2015 JAD LIU, MARLENE-ARCELIA Ot C55 08/27/2015 JAD LIU, ROSARIO-ARCELIA Ot C56.2 08/27/2015 JAD LIU, ROSARIO-ARCELIA Ot C78.5 08/27/2015 JAD LIU, ROSARIO-ARCELIA Ot C78.6 08/27/2015 JAD LIU, ROSARIO-ARCELIA Ot C79.89 08/27/2015 JAD LIU, ROSARIO-ARCELIA Ot D50.0 08/27/2015 JAD LIU, ROSARIO-ARCELIA Ot D63.1 08/27/2015 JAD LIU, ROSARIO-ARCELIA Ot D64.81 08/27/2015 JAD LIU, ROSARIO-ARCELIA Ot G62.0 08/27/2015 JAD LIU, DANA Ot I25.10 08/27/2015 JAD LIU, DANA Ot K21.0 08/27/2015 JAD LIU, DANA Ot K44.9 08/27/2015 JAD LIU, DANA Ot N18.9 08/27/2015 JAD LIU, DANA Ot T45.1X5A 08/27/2015 JAD LIU, DANA Ot Z79.02 08/27/2015 JAD LIU, DANA Ot Z79.82 08/27/2015 JAD LIU, DANA Ot Z85.3 08/27/2015 JAD LIU, DANA Ot Z92.21 08/27/2015 JAD LIU, DANA Ot Z95.5 08/29/2015 MARYTEODORO TOLBERT DO Ot Z01.818 08/29/2015 MARY DO, TEODORO Moyer K22.2 ESOPHAGEAL OBSTRUCTION 08/29/2015 MARYTEODORO TOLBERT DO, Ot K44.9 DIAPHRAGMATIC HERNIA WITHOUT OBSTRUCTION 09/22/2015 JAD LIU, DANA Ot C55 MALIGNANT NEOPLASM OF UTERUS, PART UNSPE 09/22/2015 JAD LIU, DANA Moyer C56.2 MALIGNANT NEOPLASM OF LEFT OVARY 09/22/[address] MD, Ot 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 09/22/[address] MD, Ot 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 09/22/2015 JAD LIU, DANA Moyer C79.89 SECONDARY MALIGNANT NEOPLASM OF OTHER SP 09/22/[address] MD, Ot D50.0 IRON DEFICIENCY ANEMIA SECONDARY TO BLOO 09/22/[address] MD, Ot D63.1 ANEMIA IN CHRONIC KIDNEY DISEASE 09/22/[address] MD, Ot D64.81 ANEMIA DUE TO ANTINEOPLASTIC CHEMOTHERAP 09/22/[address] MD, Ot G62.0 DRUG-INDUCED POLYNEUROPATHY 09/22/[address] MD, Ot I25.10 ATHSCL HEART DISEASE OF [place] CORONARY 09/22/[address] MD, Ot K21.0 GASTRO-ESOPHAGEAL REFLUX DISEASE WITH ES 09/22/2015 JAD LIU, DANA Moyer K44.9 DIAPHRAGMATIC HERNIA WITHOUT OBSTRUCTION 09/22/2015 JAD LIU, DANA Ot N18.9 CHRONIC KIDNEY DISEASE, UNSPECIFIED 09/22/2015 JAD LIU, DANA Moyer T45.1X5A ADVERSE EFFECT OF ANTINEOPLASTIC AND IMM 09/22/2015 JAD LIU, DANA Moyer Z79.02 [facility] (CURRENT) USE OF ANTITHROMBOTI 09/22/2015 JAD LIU, DANA Moyer Z79.82 EDUCATIONAL TECHNOLOGY COORDINATOR (CURRENT) USE OF ASPIRIN 09/22/2015 JAD LIU, DANA Ot Z85.3 PERSONAL HISTORY OF MALIGNANT NEOPLASM O 09/22/2015 JAD LIU, DANA Moyer Z92.21 PERSONAL HISTORY OF ANTINEOPLASTIC CHEMO 09/22/2015 JAD LIU, DANA Moyer Z95.5 PRESENCE OF CORONARY ANGIOPLASTY IMPLANT 09/25/2015 JAD LIU, DANA Ot C55 09/25/2015 JAD LIU, DANA Ot C56.2 09/25/2015 JAD LIU, DANA Ot C78.5 09/25/2015 JAD LIU, DANA Ot C78.6 09/25/2015 JAD LIU, DANA Ot C79.89 09/25/2015 JAD LIU, DANA Ot D50.0 09/25/2015 JAD LIU, DANA Ot D63.1 09/25/2015 JAD LIU, DANA Ot D64.81 09/25/2015 JAD LIU, DANA Ot G62.0 09/25/2015 JAD LIU, DANA Ot I25.10 09/25/2015 JAD LIU, DANA Ot K21.0 09/25/2015 JAD LIU, DANA Ot K44.9 09/25/2015 JAD LIU, DANA Ot N18.9 09/25/2015 JAD LIU, DANA Ot T45.1X5A 09/25/2015 JAD LIU, DANA Ot Z79.02 09/25/2015 JAD LIU, DANA Ot Z79.82 09/25/2015 JAD LUI, DANA Ot Z85.3 09/25/2015 JAD LIU, DANA Ot Z92.21 09/25/2015 JAD LIU, DANA Ot Z95.5 10/25/2015 JAD LIU, ROSARIO-ARCELIA Ot C55 10/25/2015 JAD LIU, ROSARIO-ARCELIA Ot C56.2 10/25/2015 JAD LIU, ROSARIO-ARCELIA Ot C78.5 10/25/2015 JAD LIU, ROSARIO-ARCELIA Ot C78.6 10/25/2015 JAD LIU, DANA Ot C79.89 10/25/2015 JAD LIU, ROSARIO-ARCELIA Ot D50.0 10/25/2015 JAD LIU, ROSARIO-ARCELIA Ot D63.1 10/25/2015 JAD LIU, ROSARIO-ARCELIA Ot D64.81 10/25/2015 JAD LIU, ROSARIO-ARCELIA Ot G62.0 10/25/2015 JAD LIU, ROSARIO-ARCELIA Ot I25.10 10/25/2015 JAD LIU, ROSARIO-ARCELIA Ot K21.0 10/25/2015 JAD LIU, ROSARIO-ARCELIA Ot K44.9 10/25/2015 JAD LIU, MARLENE-ARCELIA Ot N18.9 10/25/2015 JAD LIU, DANA Ot T45.1X5A 10/25/2015 JAD LIU, ROSARIO-ARCELIA Ot Z45.2 10/25/2015 JAD LIU, ROSARIO-ARCELIA Ot Z79.02 10/25/2015 JAD LIU, DANA Ot Z79.82 10/25/2015 JAD LIU, ROSARIO-ARCELIA Ot Z85.3 10/25/2015 JAD LIU, MARLENE-ARCELIA Ot Z92.21 10/25/2015 JAD LIU, MARLENE-ARCELIA Ot Z95.5 11/20/2015 JAD LIU, DANA Ot C50.919 11/20/2015 JAD LIU, DANA Ot C56.9 11/27/2015 JAD LIU, DANA Ot Z12.31 12/23/2015 JAD LIU, DANA Ot C55 MALIGNANT NEOPLASM OF UTERUS, PART UNSPE 12/23/2015 JAD LIU, DANA Ot C56.2 MALIGNANT NEOPLASM OF LEFT OVARY 12/23/2015 JAD LIU, DANA Ot 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 12/23/2015 JAD LIU, DANA Ot 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 12/23/2015 JAD LIU, DANA Ot C79.89 SECONDARY MALIGNANT NEOPLASM OF OTHER SP 12/23/[address] MD, Ot D50.0 IRON DEFICIENCY ANEMIA SECONDARY TO BLOO 12/23/[address] MD, Ot D63.1 ANEMIA IN CHRONIC KIDNEY DISEASE 12/23/[address] MD, Ot D64.81 ANEMIA DUE TO ANTINEOPLASTIC CHEMOTHERAP 12/23/[address] MD, Ot G62.0 DRUG-INDUCED POLYNEUROPATHY 12/23/[address] MD, Ot I25.10 ATHSCL HEART DISEASE OF [place] CORONARY 12/23/[address] MD, Ot K21.0 GASTRO-ESOPHAGEAL REFLUX DISEASE WITH ES 12/23/[address] MD, Ot K44.9 DIAPHRAGMATIC HERNIA WITHOUT OBSTRUCTION 12/23/[address] MD, Ot N18.9 CHRONIC KIDNEY DISEASE, UNSPECIFIED 12/23/[address] MD, Ot T45.1X5A ADVERSE EFFECT OF ANTINEOPLASTIC AND IMM 12/23/[address] MD, Ot Z45.2 ENCOUNTER FOR ADJUSTMENT AND MANAGEMENT 12/23/[address] MD, Ot Z79.02 [facility] (CURRENT) USE OF ANTITHROMBOTI 12/23/[address] MD, Ot Z79.82 EDUCATIONAL TECHNOLOGY COORDINATOR (CURRENT) USE OF ASPIRIN 12/23/[address] MD, Ot Z85.3 PERSONAL HISTORY OF MALIGNANT NEOPLASM O 12/23/[address] MD, Ot Z92.21 PERSONAL HISTORY OF ANTINEOPLASTIC CHEMO 12/23/[address] MD, Ot Z95.5 PRESENCE OF CORONARY ANGIOPLASTY IMPLANT 01/28/[address] MD Ot C55 MALIGNANT NEOPLASM OF UTERUS, PART UNSPE 01/28/[address] MD, Ot C56.2 MALIGNANT NEOPLASM OF LEFT OVARY 01/28/[address] MD, Ot 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 01/28/[address] MD, Ot 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 01/28/[address] MD, Ot C79.89 SECONDARY MALIGNANT NEOPLASM OF OTHER SP 01/28/[address] MD, Ot D50.0 IRON DEFICIENCY ANEMIA SECONDARY TO BLOO 01/28/[address] MD, Ot D63.1 ANEMIA IN CHRONIC KIDNEY DISEASE 01/28/[address] MD, Ot D64.81 ANEMIA DUE TO ANTINEOPLASTIC CHEMOTHERAP 01/28/[address] MD, Ot G62.0 DRUG-INDUCED POLYNEUROPATHY 01/28/[address] MD, Ot I25.10 ATHSCL HEART DISEASE OF [place] CORONARY 01/28/[address] MD, Ot K21.0 GASTRO-ESOPHAGEAL REFLUX DISEASE WITH ES 01/28/[address] MD, Ot K44.9 DIAPHRAGMATIC HERNIA WITHOUT OBSTRUCTION 01/28/[address] MD, Ot N18.9 CHRONIC KIDNEY DISEASE, UNSPECIFIED 01/28/[address] MD, Ot T45.1X5A ADVERSE EFFECT OF ANTINEOPLASTIC AND IMM 01/28/[address] MD, Ot Z45.2 ENCOUNTER FOR ADJUSTMENT AND MANAGEMENT 01/28/[address] MD, Ot Z79.02 [facility] (CURRENT) USE OF ANTITHROMBOTI 01/28/[address] MD, Ot Z79.82 EDUCATIONAL TECHNOLOGY COORDINATOR (CURRENT) USE OF ASPIRIN 01/28/[address] MD, Ot Z85.3 PERSONAL HISTORY OF MALIGNANT NEOPLASM O 01/28/[address] MD, Ot Z92.21 PERSONAL HISTORY OF ANTINEOPLASTIC CHEMO 01/28/[address] MD, Ot Z95.5 PRESENCE OF CORONARY ANGIOPLASTY IMPLANT 02/05/[address] MD, Ot C55 MALIGNANT NEOPLASM OF UTERUS, PART UNSPE 02/05/[address] MD, Ot C56.2 MALIGNANT NEOPLASM OF LEFT OVARY 02/05/[address] MD, Ot 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 02/05/[address] MD, Ot 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 02/05/[address] MD, Ot C79.89 SECONDARY MALIGNANT NEOPLASM OF OTHER SP 02/05/[address] MD, Ot D50.0 IRON DEFICIENCY ANEMIA SECONDARY TO BLOO 02/05/[address] MD, Ot D63.1 ANEMIA IN CHRONIC KIDNEY DISEASE 02/05/[address] MD, Ot D64.81 ANEMIA DUE TO ANTINEOPLASTIC CHEMOTHERAP 02/05/[address] MD, Ot G62.0 DRUG-INDUCED POLYNEUROPATHY 02/05/[address] MD, Ot I25.10 ATHSCL HEART DISEASE OF [place] CORONARY 02/05/[address] MD, Ot K21.0 GASTRO-ESOPHAGEAL REFLUX DISEASE WITH ES 02/05/[address] MD, Ot K44.9 DIAPHRAGMATIC HERNIA WITHOUT OBSTRUCTION 02/05/[address] MD, Ot N18.9 CHRONIC KIDNEY DISEASE, UNSPECIFIED 02/05/[address] MD, Ot T45.1X5A ADVERSE EFFECT OF ANTINEOPLASTIC AND IMM 02/05/[address] MD, Ot Z45.2 ENCOUNTER FOR ADJUSTMENT AND MANAGEMENT 02/05/[address] MD, Ot Z79.02 [facility] (CURRENT) USE OF ANTITHROMBOTI 02/05/[address] MD, Ot Z79.82 EDUCATIONAL TECHNOLOGY COORDINATOR (CURRENT) USE OF ASPIRIN 02/05/[address] MD, Ot Z85.3 PERSONAL HISTORY OF MALIGNANT NEOPLASM O 02/05/[address] MD, Ot Z92.21 PERSONAL HISTORY OF ANTINEOPLASTIC CHEMO 02/05/[address] MD, Ot Z95.5 PRESENCE OF CORONARY ANGIOPLASTY IMPLANT 02/26/[address] MD, Ot C55 MALIGNANT NEOPLASM OF UTERUS, PART UNSPE 02/26/[address] MD, Ot C56.2 MALIGNANT NEOPLASM OF LEFT OVARY 02/26/[address] MD, Ot 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 02/26/[address] MD, Ot 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 02/26/[address] MD, Ot C79.89 SECONDARY MALIGNANT NEOPLASM OF 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 02/26/[address] MD, Ot D50.0 IRON DEFICIENCY ANEMIA SECONDARY TO BLOO 02/26/[address] MD, Ot D63.1 ANEMIA IN CHRONIC KIDNEY DISEASE 02/26/[address] MD, Ot D64.81 ANEMIA DUE TO ANTINEOPLASTIC CHEMOTHERAP 02/26/[address] MD, Ot I25.10 ATHSCL HEART DISEASE OF [place] CORONARY 02/26/[address] MD, Ot K21.0 GASTRO-ESOPHAGEAL REFLUX DISEASE WITH ES 02/26/[address] MD, Ot K44.9 DIAPHRAGMATIC HERNIA WITHOUT OBSTRUCTION 02/26/[address] MD, Ot N18.9 CHRONIC KIDNEY DISEASE, UNSPECIFIED 02/26/[address] MD, Ot Z45.2 ENCOUNTER FOR ADJUSTMENT AND MANAGEMENT 02/26/[address] MD, Ot Z79.02 [facility] (CURRENT) USE OF ANTITHROMBOTI 02/26/[address] MD, Ot Z79.82 EDUCATIONAL TECHNOLOGY COORDINATOR (CURRENT) USE OF ASPIRIN 02/26/[address] MD, Ot Z85.3 PERSONAL HISTORY OF MALIGNANT NEOPLASM O 02/26/[address] MD, Ot Z92.21 PERSONAL HISTORY OF ANTINEOPLASTIC CHEMO 02/26/[address] MD, Ot Z95.5 PRESENCE OF CORONARY ANGIOPLASTY IMPLANT 05/04/[address] MD, Ot C55 MALIGNANT NEOPLASM OF UTERUS, PART UNSPE 05/04/[address] MD, Ot C56.2 MALIGNANT NEOPLASM OF LEFT OVARY 05/04/[address] MD, Ot 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 05/04/[address] MD, Ot 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 05/04/[address] MD, Ot C79.89 SECONDARY MALIGNANT NEOPLASM OF OTHER SP 05/04/[address] MD, Ot D50.0 IRON DEFICIENCY ANEMIA SECONDARY TO BLOO 05/04/[address] MD, Ot D63.1 ANEMIA IN CHRONIC KIDNEY DISEASE 05/04/[address] MD, Ot D64.81 ANEMIA DUE TO ANTINEOPLASTIC CHEMOTHERAP 05/04/[address] MD, Ot I25.10 ATHSCL HEART DISEASE OF [place] CORONARY 05/04/[address] MD, Ot K21.0 GASTRO-ESOPHAGEAL REFLUX DISEASE WITH ES 05/04/[address] MD, Ot K44.9 DIAPHRAGMATIC HERNIA WITHOUT OBSTRUCTION 05/04/[address] MD, Ot N18.9 CHRONIC KIDNEY DISEASE, UNSPECIFIED 05/04/[address] MD, Ot Z45.2 ENCOUNTER FOR ADJUSTMENT AND MANAGEMENT 05/04/[address] MD, Ot Z79.02 EDUCATIONAL TECHNOLOGY COORDINATOR (CURRENT) USE OF ANTITHROMBOTI 05/04/[address] MD, Ot Z79.82 EDUCATIONAL TECHNOLOGY COORDINATOR (CURRENT) USE OF ASPIRIN 05/04/[address] MD, Ot Z85.3 PERSONAL HISTORY OF MALIGNANT NEOPLASM O 05/04/[address] MD, Ot Z92.21 PERSONAL HISTORY OF ANTINEOPLASTIC CHEMO 05/04/[address] MD, Ot Z95.5 PRESENCE OF CORONARY ANGIOPLASTY IMPLANT 05/05/[address] MD, Ot C55 MALIGNANT NEOPLASM OF UTERUS, PART UNSPE 05/05/[address] MD, Ot C56.2 MALIGNANT NEOPLASM OF LEFT OVARY 05/05/[address] MD, Ot 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 05/05/[address] MD, Ot 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 05/05/[address] MD, Ot C79.89 SECONDARY MALIGNANT NEOPLASM OF OTHER SP 05/05/[address] MD, Ot D50.0 IRON DEFICIENCY ANEMIA SECONDARY TO BLOO 05/05/[address] MD, Ot D63.1 ANEMIA IN CHRONIC KIDNEY DISEASE 05/05/[address] MD, Ot D64.81 ANEMIA DUE TO ANTINEOPLASTIC CHEMOTHERAP 05/05/[address] MD, Ot I25.10 ATHSCL HEART DISEASE OF [place] CORONARY 05/05/[address] MD, Ot K21.0 GASTRO-ESOPHAGEAL REFLUX DISEASE WITH ES 05/05/[address] MD, Ot K44.9 DIAPHRAGMATIC HERNIA WITHOUT OBSTRUCTION 05/05/[address] MD, Ot N18.9 CHRONIC KIDNEY DISEASE, UNSPECIFIED 05/05/[address] MD, Ot Z45.2 ENCOUNTER FOR ADJUSTMENT AND MANAGEMENT 05/05/[address] MD, Ot Z79.02 EDUCATIONAL TECHNOLOGY COORDINATOR (CURRENT) USE OF ANTITHROMBOTI 05/05/[address] MD, Ot Z79.82 [facility] (CURRENT) USE OF ASPIRIN 05/05/[address] MD, Ot Z85.3 PERSONAL HISTORY OF MALIGNANT NEOPLASM O 05/05/[address] MD, Ot Z92.21 PERSONAL HISTORY OF ANTINEOPLASTIC CHEMO 05/05/[address] MD, Ot Z95.5 PRESENCE OF CORONARY ANGIOPLASTY IMPLANT 05/10/[address] MD, Ot C55 MALIGNANT NEOPLASM OF UTERUS, PART UNSPE 05/10/[address] MD, Ot C56.2 MALIGNANT NEOPLASM OF LEFT OVARY 05/10/[address] MD, Ot 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 05/10/[address] MD, Ot 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 05/10/[address] MD, Ot C79.89 SECONDARY MALIGNANT NEOPLASM OF OTHER SP 05/10/[address] MD, Ot D50.0 IRON DEFICIENCY ANEMIA SECONDARY TO BLOO 05/10/[address] MD, Ot D63.1 ANEMIA IN CHRONIC KIDNEY DISEASE 05/10/[address] MD, Ot D64.81 ANEMIA DUE TO ANTINEOPLASTIC CHEMOTHERAP 05/10/[address] MD, Ot I25.10 ATHSCL HEART DISEASE OF [place] CORONARY 05/10/[address], Ot K21.0 GASTRO-ESOPHAGEAL REFLUX DISEASE WITH ES 05/10/[address] MD, Ot K44.9 DIAPHRAGMATIC HERNIA WITHOUT OBSTRUCTION 05/10/[address] MD, Ot N18.9 CHRONIC KIDNEY DISEASE, UNSPECIFIED 05/10/[address] MD, Ot Z45.2 ENCOUNTER FOR ADJUSTMENT AND MANAGEMENT 05/10/[address] MD, Ot Z79.02 [facility] (CURRENT) USE OF ANTITHROMBOTI 05/10/[address] MD, Ot Z79.82 EDUCATIONAL TECHNOLOGY COORDINATOR (CURRENT) USE OF ASPIRIN 05/10/[address] MD, Ot Z85.3 PERSONAL HISTORY OF MALIGNANT NEOPLASM O 05/10/[address] MD, Ot Z92.21 PERSONAL HISTORY OF ANTINEOPLASTIC CHEMO 05/10/[address] MD, Ot Z95.5 PRESENCE OF CORONARY ANGIOPLASTY IMPLANT 05/19/[address] MD, Ot C55 MALIGNANT NEOPLASM OF UTERUS, PART UNSPE 05/19/[address] MD, Ot C56.2 MALIGNANT NEOPLASM OF LEFT OVARY 05/19/[address] MD, Ot 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 05/19/[address] MD, Ot 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 05/19/[address] MD, Ot C79.89 SECONDARY MALIGNANT NEOPLASM OF OTHER SP 05/19/[address] MD, Ot D50.0 IRON DEFICIENCY ANEMIA SECONDARY TO BLOO 05/19/[address] MD, Ot D63.1 ANEMIA IN CHRONIC KIDNEY DISEASE 05/19/[address] MD, Ot D64.81 ANEMIA DUE TO ANTINEOPLASTIC CHEMOTHERAP 05/19/[address] MD, Ot I25.10 ATHSCL HEART DISEASE OF [place] CORONARY 05/19/[address] MD, Ot K21.0 GASTRO-ESOPHAGEAL REFLUX DISEASE WITH ES 05/19/[address] MD, Ot K44.9 DIAPHRAGMATIC HERNIA WITHOUT OBSTRUCTION 05/19/[address] MD, Ot N18.9 CHRONIC KIDNEY DISEASE, UNSPECIFIED 05/19/[address] MD, Ot Z45.2 ENCOUNTER FOR ADJUSTMENT AND MANAGEMENT 05/19/[address] MD, Ot Z79.02 EDUCATIONAL TECHNOLOGY COORDINATOR (CURRENT) USE OF ANTITHROMBOTI 05/19/[address] MD, Ot Z79.82 EDUCATIONAL TECHNOLOGY COORDINATOR (CURRENT) USE OF ASPIRIN 05/19/[address] MD, Ot Z85.3 PERSONAL HISTORY OF MALIGNANT NEOPLASM O 05/19/[address] MD, Ot Z92.21 PERSONAL HISTORY OF ANTINEOPLASTIC CHEMO 05/19/[address] MD, Ot Z95.5 PRESENCE OF CORONARY ANGIOPLASTY IMPLANT 05/27/[address] MD Ot C55 MALIGNANT NEOPLASM OF UTERUS, PART UNSPE 05/27/[address] MD, Ot C56.2 MALIGNANT NEOPLASM OF LEFT OVARY 05/27/[address] MD, Ot 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 05/27/[address] MD, Ot 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 05/27/[address] MD, Ot C79.89 SECONDARY MALIGNANT NEOPLASM OF OTHER SP 05/27/[address] MD, Ot D50.0 IRON DEFICIENCY ANEMIA SECONDARY TO BLOO 05/27/[address] MD, Ot D63.1 ANEMIA IN CHRONIC KIDNEY DISEASE 05/27/[address] MD, Ot D64.81 ANEMIA DUE TO ANTINEOPLASTIC CHEMOTHERAP 05/27/[address] MD, Ot I25.10 ATHSCL HEART DISEASE OF [place] CORONARY 05/27/[address] MD, Ot K21.0 GASTRO-ESOPHAGEAL REFLUX DISEASE WITH ES 05/27/[address] MD, Ot K44.9 DIAPHRAGMATIC HERNIA WITHOUT OBSTRUCTION 05/27/[address] MD, Ot N18.9 CHRONIC KIDNEY DISEASE, UNSPECIFIED 05/27/[address] MD, Ot Z45.2 ENCOUNTER FOR ADJUSTMENT AND MANAGEMENT 05/27/[address] MD, Ot Z79.02 [facility] (CURRENT) USE OF ANTITHROMBOTI 05/27/[address] MD, Ot Z79.82 [facility] (CURRENT) USE OF ASPIRIN 05/27/[address] MD, Ot Z85.3 PERSONAL HISTORY OF MALIGNANT NEOPLASM O 05/27/[address] MD, Ot Z92.21 PERSONAL HISTORY OF ANTINEOPLASTIC CHEMO 05/27/[address] MD, Ot Z95.5 PRESENCE OF CORONARY ANGIOPLASTY IMPLANT 06/02/[address] MD, Ot C56.1 MALIGNANT NEOPLASM OF RIGHT OVARY 06/02/[address] MD, Ot N18.9 CHRONIC KIDNEY DISEASE, UNSPECIFIED 06/07/[address] MD, Ot C56.1 MALIGNANT NEOPLASM OF RIGHT OVARY 06/07/[address] MD, Ot N18.9 CHRONIC KIDNEY DISEASE, UNSPECIFIED 06/10/[address] MD, Ot C56.1 MALIGNANT NEOPLASM OF RIGHT OVARY 06/10/[address] MD, Ot N18.9 CHRONIC KIDNEY DISEASE, UNSPECIFIED 06/10/[address] MD, Ot C56.1 MALIGNANT NEOPLASM OF RIGHT OVARY 06/10/[address] MD, Ot N18.9 CHRONIC KIDNEY DISEASE, UNSPECIFIED 06/10/[address] MD, Ot C56.1 MALIGNANT NEOPLASM OF RIGHT OVARY 06/10/[address] MD, Ot N18.9 CHRONIC KIDNEY DISEASE, UNSPECIFIED 06/16/2016 STURGIS DOARIELLA D Ot C56.2 MALIGNANT NEOPLASM OF LEFT OVARY 06/16/2016 [facility], ARIELLA D Ot Z01.818 ENCOUNTER FOR OTHER PREPROCEDURAL EXAMIN 06/17/[address] MD, Ot C56.1 MALIGNANT NEOPLASM OF RIGHT OVARY 06/17/[address] MD, Ot N18.9 CHRONIC KIDNEY DISEASE, UNSPECIFIED 06/17/[address] MD, Ot C55 MALIGNANT NEOPLASM OF UTERUS, PART UNSPE 06/17/[address] MD, Ot C56.2 MALIGNANT NEOPLASM OF LEFT OVARY 06/17/[address] MD, Ot 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 06/17/[address] MD, Ot 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 06/17/[address] MD, Ot C79.89 SECONDARY MALIGNANT NEOPLASM OF OTHER SP 06/17/[address] MD, Ot D50.0 IRON DEFICIENCY ANEMIA SECONDARY TO BLOO 06/17/[address] MD, Ot D63.1 ANEMIA IN CHRONIC KIDNEY DISEASE 06/17/[address] MD, Ot D64.81 ANEMIA DUE TO ANTINEOPLASTIC CHEMOTHERAP 06/17/[address] MD, Ot I25.10 ATHSCL HEART DISEASE OF [place] CORONARY 06/17/[address] MD, Ot K21.0 GASTRO-ESOPHAGEAL REFLUX DISEASE WITH ES 06/17/[address] MD, Ot K44.9 DIAPHRAGMATIC HERNIA WITHOUT OBSTRUCTION 06/17/[address] MD, Ot N18.9 CHRONIC KIDNEY DISEASE, UNSPECIFIED 06/17/[address] MD, Ot Z45.2 ENCOUNTER FOR ADJUSTMENT AND MANAGEMENT 06/17/[address] MD, Ot Z79.02 EDUCATIONAL TECHNOLOGY COORDINATOR (CURRENT) USE OF ANTITHROMBOTI 06/17/[address] MD, Ot Z79.82 [facility] (CURRENT) USE OF ASPIRIN 06/17/2016 XUN MD, ROSARIO-ARCELIA Ot Z85.3 PERSONAL HISTORY OF MALIGNANT NEOPLASM O 06/17/[address] MDARCELIA Ot Z92.21 PERSONAL HISTORY OF ANTINEOPLASTIC CHEMO 06/17/2016 JAD LIU, MARLENEARCELIA Ot Z95.5 PRESENCE OF CORONARY ANGIOPLASTY IMPLANT 06/18/2016 Ot 174.9 MALIGN NEOPL BREAST NOS 06/18/2016 Ot V76.12 OTH SCREEN MAMMO-MALIGN NEOPLASM OF [place] LU[place] 06/18/2016 Ot 174.9 MALIGN NEOPL BREAST NOS 06/18/2016 Ot 553.3 DIAPHRAGMATIC HERNIA 06/18/2016 Ot 793.6 NOSP (ABN) FINDINGS ON RADIOLOGICAL OT 06/18/2016 Ot 795.89 OTHER ABNORMAL TUMOR MARKERS 06/18/2016 Ot V10.3 HX OF BREAST MALIGNANCY 06/18/2016 Ot V58.69 OTH MED,LT, CURRENT USE 06/18/2016 Ot V67.1 RADIOTHERAPY FOLLOW-UP 06/18/2016 Ot V67.2 CHEMOTHERAPY FOLLOW-UP 06/18/2016 Ot 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 06/18/2016 Ot 553.3 DIAPHRAGMATIC HERNIA 06/18/2016 Ot V10.3 HX OF BREAST MALIGNANCY 06/18/2016 Ot V15.3 HX OF IRRADIATION 06/18/2016 Ot V58.69 OTH MED,LT, CURRENT USE 06/18/2016 Ot V87.41 PERSONAL HISTORY OF ANTINEOPLASTIC CHEMO 06/18/2016 Ot 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 06/18/2016 Ot V10.3 HX OF BREAST MALIGNANCY 06/18/2016 Ot 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 06/18/2016 Ot V72.83 EXAM PRE- OPERATIVE NEC 06/18/2016 Ot V74.8 SCREEN- BACTERIAL DIS NEC 06/18/2016 Ot 174.9 MALIGN NEOPL BREAST NOS 06/18/2016 Ot 530.11 REFLUX ESOPHAGITIS 06/18/2016 Ot 562.10 DIVERTICULOSIS COLON (W/O MENT OF HEMORR 06/18/2016 Ot 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 06/18/2016 Ot 183.0 MALIGN NEOPL OVARY 06/18/2016 Ot 197.5 SEC MALIG DELPHINE LG BOWEL 06/18/2016 Ot 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 06/18/2016 Ot 285.9 ANEMIA NOS 06/18/2016 Ot 287.5 THROMBOCYTOPENIA NOS 06/18/2016 Ot V10.3 HX OF BREAST MALIGNANCY 06/18/2016 Ot V15.3 HX OF IRRADIATION 06/18/2016 Ot V45.77 ACQRD ABSENCE OF GENITAL ORGANS 06/18/2016 Ot V58.69 OTH MED,LT, CURRENT USE 06/18/2016 Ot V87.41 PERSONAL HISTORY OF ANTINEOPLASTIC CHEMO 06/18/2016 Ot V72.84 EXAM PRE- OPERATIVE NOS 06/18/2016 Ot 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 06/18/2016 Ot 183.0 MALIGN NEOPL OVARY 06/18/2016 Ot V10.3 HX OF BREAST MALIGNANCY 06/18/2016 Ot V76.11 SCRN MAMMO- HIGH RISK PT, MALIGNANT NEOPL 06/18/2016 Ot 183.0 MALIGN NEOPL OVARY 06/18/2016 Ot 786.09 RESPIRATORY ABNORM NEC 06/18/2016 Ot 786.09 RESPIRATORY ABNORM NEC 06/18/2016 JAD LIU, DANA Ot 183.0 MALIGN NEOPL OVARY 06/18/2016 FERNY NICHOLSON MD Ot V72.84 EXAM PRE-OPERATIVE NOS 06/18/2016 FERNY NICHOLSON MD Ot V72.84 EXAM PRE-OPERATIVE NOS 06/18/2016 FERNY NICHOLSON MD Ot V72.84 EXAM PRE-OPERATIVE NOS 06/18/2016 JAD LIU, DANA Ot 721.0 CERVICAL SPONDYLOSIS 06/18/[address] MD Ot V76.12 OTH SCREEN MAMMO-MALIGN NEOPLASM OF [place] 06/18/2016 FERNY NICHOLSON MD Ot V72.84 EXAM PRE-OPERATIVE NOS 06/18/2016 FERNY NICHOLSON MD Ot V72.84 EXAM PRE-OPERATIVE NOS 06/18/2016 FERNY NICHOLSON MD Ot V72.84 EXAM PRE-OPERATIVE NOS 06/18/2016 ALFREDO CAEDNA Ot 585.3 CHRONIC KIDNEY DISEASE, STAGE III (MODER 06/18/2016 ALFREDO CADENA Ot 793.5 NOSP (ABN) FINDINGS ON RADIOLOGICAL OT 06/18/2016 FERNY NICHOLSON MD Ot 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 06/18/2016 FERNY NICHOLSON MD Ot V72.84 EXAM PRE-OPERATIVE NOS 06/18/[address] MD Ot 174.9 MALIGN NEOPL BREAST NOS 06/18/[address] MD Ot V76.11 SCRN MAMMO-HIGH RISK PT, MALIGNANT NEOPL 06/18/[address] MD Ot 183.0 MALIGN NEOPL OVARY 06/18/2016 BAIMA, NALINI L SHEET METAL ERECTOR Ot 272.4 HYPERLIPIDEMIA NEC/NOS 06/18/2016 BAIMA, NALINI L SHEET METAL ERECTOR Ot 401.9 HYPERTENSION NOS 06/18/2016 BAIMA, NALINI L SHEET METAL ERECTOR Ot 414.9 CHR ISCHEMIC HRT DIS NOS 06/18/2016 BAIMA, NALINI L SHEET METAL ERECTOR Ot 437.9 CEREBROVASC DISEASE NOS 06/18/2016 BAIMA, NALINI L SHEET METAL ERECTOR Ot 272.4 HYPERLIPIDEMIA NEC/NOS 06/18/2016 BAIMA, NALINI L SHEET METAL ERECTOR Ot 401.9 HYPERTENSION NOS 06/18/2016 BAIMA, NALINI L SHEET METAL ERECTOR Ot 414.00 CORON ATHEROSCLER NOS TYPE VESSEL, NATIV 06/18/2016 BAIMA, NALINI L SHEET METAL ERECTOR Ot 437.9 CEREBROVASC DISEASE NOS 06/18/[address] MD Ot 174.9 MALIGN NEOPL BREAST NOS 06/18/[address] MD Ot 183.0 MALIGN NEOPL OVARY 06/18/2016 BHARAT LIU, FERNY S Ot 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 06/18/2016 FERNY NICHOLSON MD S Ot V72.84 EXAM PRE-OPERATIVE NOS 06/18/[address] MD Ot C50.919 MALIGNANT NEOPLASM OF UNSP SITE OF UNSPE 06/18/[address] MD Ot C56.9 MALIGNANT NEOPLASM OF UNSPECIFIED OVARY 06/18/[address] MD Ot T85.698A [facility] COMPL OF INTERNAL PROSTH DEV/GRFT, 06/18/2016 TEODORO HERNANDEZ DO Ot Z01.818 ENCOUNTER FOR OTHER PREPROCEDURAL EXAMIN 06/18/[address] MD Ot C56.2 MALIGNANT NEOPLASM OF LEFT OVARY 06/18/[address] MD Ot Z85.3 PERSONAL HISTORY OF MALIGNANT NEOPLASM O 06/18/[address] MD Ot C50.919 MALIGNANT NEOPLASM OF UNSP SITE OF UNSPE 06/18/[address] MD, Ot C56.9 MALIGNANT NEOPLASM OF UNSPECIFIED OVARY 06/18/[address] MD, Ot Z12.31 ENCNTR SCREEN MAMMOGRAM FOR MALIGNANT NE 06/18/[address] MD, Ot C56.1 MALIGNANT NEOPLASM OF RIGHT OVARY 06/18/[address] MD, Ot N18.9 CHRONIC KIDNEY DISEASE, UNSPECIFIED 06/18/[address] MD, Ot C55 MALIGNANT NEOPLASM OF UTERUS, PART UNSPE 06/18/[address] MD, Ot C56.2 MALIGNANT NEOPLASM OF LEFT OVARY 06/18/[address] MD, Ot 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 06/18/[address] MD, Ot 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 06/18/[address] MD, Ot C79.89 SECONDARY MALIGNANT NEOPLASM OF OTHER SP 06/18/[address] MD, Ot D50.0 IRON DEFICIENCY ANEMIA SECONDARY TO BLOO 06/18/[address] MD, Ot D63.1 ANEMIA IN CHRONIC KIDNEY DISEASE 06/18/[address] MD, Ot D64.81 ANEMIA DUE TO ANTINEOPLASTIC CHEMOTHERAP 06/18/[address] MD, Ot I25.10 ATHSCL HEART DISEASE OF [place] CORONARY 06/18/[address] MD, Ot K21.0 GASTRO-ESOPHAGEAL REFLUX DISEASE WITH ES 06/18/[address] MD, Ot K44.9 DIAPHRAGMATIC HERNIA WITHOUT OBSTRUCTION 06/18/[address] MD, Ot N18.9 CHRONIC KIDNEY DISEASE, UNSPECIFIED 06/18/[address] MD, Ot Z45.2 ENCOUNTER FOR ADJUSTMENT AND MANAGEMENT 06/18/[address] MD, Ot Z79.02 EDUCATIONAL TECHNOLOGY COORDINATOR (CURRENT) USE OF ANTITHROMBOTI 06/18/[address] MD, Ot Z79.82 [facility] (CURRENT) USE OF ASPIRIN 06/18/[address] MD, Ot Z85.3 PERSONAL HISTORY OF MALIGNANT NEOPLASM O 06/18/[address] MD, Ot Z92.21 PERSONAL HISTORY OF ANTINEOPLASTIC CHEMO 06/18/[address] MD, Ot Z95.5 PRESENCE OF CORONARY ANGIOPLASTY IMPLANT 06/18/2016 STURGIS ARIELLA D Ot C56.2 MALIGNANT NEOPLASM OF LEFT OVARY 06/18/2016 [facility] Ot T82.514A BREAKDOWN (MECHANICAL) OF INFUSION PAT 06/24/[address] MD, Ot C55 MALIGNANT NEOPLASM OF UTERUS, PART UNSPE 06/24/[address] MD, Ot C56.2 MALIGNANT NEOPLASM OF LEFT OVARY 06/24/[address] MD, Ot 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 06/24/[address] MD, Ot 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 06/24/[address] MD, Ot C79.89 SECONDARY MALIGNANT NEOPLASM OF OTHER SP 06/24/[address] MD, Ot D50.0 IRON DEFICIENCY ANEMIA SECONDARY TO BLOO 06/24/[address] MD, Ot D63.1 ANEMIA IN CHRONIC KIDNEY DISEASE 06/24/[address] MD, Ot D64.81 ANEMIA DUE TO ANTINEOPLASTIC CHEMOTHERAP 06/24/[address] MD, Ot I25.10 ATHSCL HEART DISEASE OF [place] CORONARY 06/24/[address] MD, Ot K21.0 GASTRO-ESOPHAGEAL REFLUX DISEASE WITH ES 06/24/[address] MD, Ot K44.9 DIAPHRAGMATIC HERNIA WITHOUT OBSTRUCTION 06/24/[address] MD, Ot N18.9 CHRONIC KIDNEY DISEASE, UNSPECIFIED 06/24/[address] MD, Ot Z45.2 ENCOUNTER FOR ADJUSTMENT AND MANAGEMENT 06/24/[address] MD, Ot Z79.02 EDUCATIONAL TECHNOLOGY COORDINATOR (CURRENT) USE OF ANTITHROMBOTI 06/24/[address] MD, Ot Z79.82 [facility] (CURRENT) USE OF ASPIRIN 06/24/[address] MD, Ot Z85.3 PERSONAL HISTORY OF MALIGNANT NEOPLASM O 06/24/[address] MD, Ot Z92.21 PERSONAL HISTORY OF ANTINEOPLASTIC CHEMO 06/24/[address] MD, Ot Z95.5 PRESENCE OF CORONARY ANGIOPLASTY IMPLANT 06/29/[address] MD, Ot C55 MALIGNANT NEOPLASM OF UTERUS, PART UNSPE 06/29/[address] MD, Ot C56.2 MALIGNANT NEOPLASM OF LEFT OVARY 06/29/[address] MD, Ot 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 06/29/[address] MD, Ot 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 06/29/[address] MD, Ot C79.89 SECONDARY MALIGNANT NEOPLASM OF OTHER SP 06/29/[address] MD, Ot D50.0 IRON DEFICIENCY ANEMIA SECONDARY TO BLOO 06/29/[address] MD, Ot D63.1 ANEMIA IN CHRONIC KIDNEY DISEASE 06/29/[address] MD, Ot D64.81 ANEMIA DUE TO ANTINEOPLASTIC CHEMOTHERAP 06/29/[address] MD, Ot I25.10 ATHSCL HEART DISEASE OF [place] CORONARY 06/29/[address] MD, Ot K21.0 GASTRO-ESOPHAGEAL REFLUX DISEASE WITH ES 06/29/[address] MD, Ot K44.9 DIAPHRAGMATIC HERNIA WITHOUT OBSTRUCTION 06/29/[address] MD, Ot N18.9 CHRONIC KIDNEY DISEASE, UNSPECIFIED 06/29/[address] MD, Ot Z79.02 EDUCATIONAL TECHNOLOGY COORDINATOR (CURRENT) USE OF ANTITHROMBOTI 06/29/[address] MD, Ot Z79.82 [facility] (CURRENT) USE OF ASPIRIN 06/29/[address] MD, Ot Z85.3 PERSONAL HISTORY OF MALIGNANT NEOPLASM O 06/29/[address] MD, Ot Z92.21 PERSONAL HISTORY OF ANTINEOPLASTIC CHEMO 06/29/[address] MD, Ot Z95.5 PRESENCE OF CORONARY ANGIOPLASTY IMPLANT 07/08/2016 ARIELLA PENALOZA DO Ot C55 MALIGNANT NEOPLASM OF UTERUS, PART UNSPE 07/08/2016 ARIELLA PENALOZA DO Ot C56.2 MALIGNANT NEOPLASM OF LEFT OVARY 07/08/2016 ARIELLA PENALOZA DO Ot E78.5 HYPERLIPIDEMIA, UNSPECIFIED 07/08/2016 ARIELLA PENALOZA DO Ot G47.33 OBSTRUCTIVE SLEEP APNEA (ADULT) (PEDIATR 07/08/2016 ARIELLA PENALOZA DO Ot I12.9 HYPERTENSIVE CHRONIC KIDNEY DISEASE W ST 07/08/2016 ARIELLA PENALOZA DO Ot I25.10 ATHSCL HEART DISEASE OF [place] CORONARY 07/08/2016 ARIELLA PENALOZA DO D Ot N18.2 CHRONIC KIDNEY DISEASE, STAGE 2 (MILD) 07/08/2016 ARIELLA PENALOZA DO Ot T82.514A BREAKDOWN (MECHANICAL) OF INFUSION PAT 07/08/2016 ARIELLA PENALOZA DO Ot Z79.02 EDUCATIONAL TECHNOLOGY COORDINATOR (CURRENT) USE OF ANTITHROMBOTI 07/08/2016 ARIELLA PENALOZA DO D Ot Z79.82 [facility] (CURRENT) USE OF ASPIRIN 07/08/2016 ARIELLA PENALOZA DO D Ot Z85.3 PERSONAL HISTORY OF MALIGNANT NEOPLASM O 07/08/2016 ARIELLA PENALOZA DO Ot C55 MALIGNANT NEOPLASM OF UTERUS, PART UNSPE 07/08/2016 ARIELLA PENALOZA DO Ot C56.2 MALIGNANT NEOPLASM OF LEFT OVARY 07/08/2016 ARIELLA PENALOZA DO D Ot E78.5 HYPERLIPIDEMIA, UNSPECIFIED 07/08/2016 ARIELLA PENALOZA DO D Ot G47.33 OBSTRUCTIVE SLEEP APNEA (ADULT) (PEDIATR 07/08/2016 ARIELLA PENALOZA DO Ot I12.9 HYPERTENSIVE CHRONIC KIDNEY DISEASE W ST 07/08/2016 ARIELLA PENALOZA DO Ot I25.10 ATHSCL HEART DISEASE OF [place] CORONARY 07/08/2016 ARIELLA PENALOZA DO Ot N18.2 CHRONIC KIDNEY DISEASE, STAGE 2 (MILD) 07/08/2016 ARIELLA PENALOZA DO Ot T82.514A BREAKDOWN (MECHANICAL) OF INFUSION PAT 07/08/2016 ARIELLA PENALOZA DO Ot Z79.02 EDUCATIONAL TECHNOLOGY COORDINATOR (CURRENT) USE OF ANTITHROMBOTI 07/08/2016 ARIELLA PENALOZA DO Ot Z79.82 [facility] (CURRENT) USE OF ASPIRIN 07/08/2016 ARIELLA PENALOZA DO D Ot Z85.3 PERSONAL HISTORY OF MALIGNANT NEOPLASM O 07/09/2016 ARIELLA PENALOZA DO Ot C55 MALIGNANT NEOPLASM OF UTERUS, PART UNSPE 07/09/2016 YASH PENALOZA DOTT D Ot C56.2 MALIGNANT NEOPLASM OF LEFT OVARY 07/09/2016 YASH PENALOZA DOTT D Ot E78.5 HYPERLIPIDEMIA, UNSPECIFIED 07/09/2016 YASH PENALOZA DOTT D Ot G47.33 OBSTRUCTIVE SLEEP APNEA (ADULT) (PEDIATR 07/09/2016 ARIELLA PENALOZA DO Ot I12.9 HYPERTENSIVE CHRONIC KIDNEY DISEASE W ST 07/09/2016 ARIELLA PENALOZA DO D Ot I25.10 ATHSCL HEART DISEASE OF [place] CORONARY 07/09/2016 ARIELLA PENALOZA DO Ot N18.2 CHRONIC KIDNEY DISEASE, STAGE 2 (MILD) 07/09/2016 ARIELLA PENALOZA DO Ot T82.514A BREAKDOWN (MECHANICAL) OF INFUSION PAT 07/09/2016 ARIELLA PENALOZA DO Ot Z79.02 EDUCATIONAL TECHNOLOGY COORDINATOR (CURRENT) USE OF ANTITHROMBOTI 07/09/2016 ARIELLA PENALOZA DO D Ot Z79.82 [facility] (CURRENT) USE OF ASPIRIN 07/09/2016 ARIELLA PENALOZA DO Ot Z85.3 PERSONAL HISTORY OF MALIGNANT NEOPLASM O 07/12/2016 ARIELLA PENALOZA DO Ot C55 MALIGNANT NEOPLASM OF UTERUS, PART UNSPE 07/12/2016 ARIELLA PENALOZA DO Ot C56.2 MALIGNANT NEOPLASM OF LEFT OVARY 07/12/2016 ARIELLA PENALOZA DO Ot E78.5 HYPERLIPIDEMIA, UNSPECIFIED 07/12/2016 ARIELLA PENALOZA DO D Ot G47.33 OBSTRUCTIVE SLEEP APNEA (ADULT) (PEDIATR 07/12/2016 ARIELLA PENALOZA DO Ot I12.9 HYPERTENSIVE CHRONIC KIDNEY DISEASE W ST 07/12/2016 ARIELLA PENALOZA DO Ot I25.10 ATHSCL HEART DISEASE OF [place] CORONARY 07/12/2016 ARIELLA PENALOZA DO D Ot N18.2 CHRONIC KIDNEY DISEASE, STAGE 2 (MILD) 07/12/2016 ARIELLA PENALOZA DO Ot T82.514A BREAKDOWN (MECHANICAL) OF INFUSION PAT 07/12/2016 ARIELLA PENALOZA DO Ot Z79.02 EDUCATIONAL TECHNOLOGY COORDINATOR (CURRENT) USE OF ANTITHROMBOTI 07/12/2016 ARIELLA PENALOAZ DO D Ot Z79.82 [facility] (CURRENT) USE OF ASPIRIN 07/12/2016 ARIELLA PENALOZA DO D Ot Z85.3 PERSONAL HISTORY OF MALIGNANT NEOPLASM O 07/17/2016 ARIELLA PENALOZA DO D Ot C55 MALIGNANT NEOPLASM OF UTERUS, PART UNSPE 07/17/2016 ARIELLA PENALOZA DO D Ot C56.2 MALIGNANT NEOPLASM OF LEFT OVARY 07/17/2016 ARIELLA PENALOZA DO Ot E78.5 HYPERLIPIDEMIA, UNSPECIFIED 07/17/2016 PENALOZA DO, ARIELLA D Ot G47.33 OBSTRUCTIVE SLEEP APNEA (ADULT) (PEDIATR 07/17/2016 PENALOZA DO ARIELLA D Ot I12.9 HYPERTENSIVE CHRONIC KIDNEY DISEASE W ST 07/17/2016 PENALOZA DO ARIELLA D Ot I25.10 ATHSCL HEART DISEASE OF [place] CORONARY 07/17/2016 PENALOZA DO ARIELLA D Ot N18.2 CHRONIC KIDNEY DISEASE, STAGE 2 (MILD) 07/17/2016 CA DOARIELLA D Ot T82.514A BREAKDOWN (MECHANICAL) OF INFUSION PAT 07/17/2016 PENALOZA DOARIELLA D Ot Z79.02 [facility] (CURRENT) USE OF ANTITHROMBOTI 07/17/2016 CA DO ARIELLA D Ot Z79.82 [facility] (CURRENT) USE OF ASPIRIN 07/17/2016 CA LARIOS ARIELLA D Ot Z85.3 PERSONAL HISTORY OF MALIGNANT NEOPLASM O 07/27/2016 ARIELLA PENALOZA DO Ot C56.9 MALIGNANT NEOPLASM OF UNSPECIFIED OVARY 07/27/2016 ARIELLA PENALOZA DO D Ot E78.5 HYPERLIPIDEMIA, UNSPECIFIED 07/27/2016 PENALOZA DO, ARIELLA D Ot G47.33 OBSTRUCTIVE SLEEP APNEA (ADULT) (PEDIATR 07/27/2016 CA DOYASHTT D Ot I12.9 HYPERTENSIVE CHRONIC KIDNEY DISEASE W ST 07/27/2016 CA DOYASHTT D Ot I25.10 ATHSCL HEART DISEASE OF [place] CORONARY 07/27/2016 CA DOYASHTT D Ot N18.2 CHRONIC KIDNEY DISEASE, STAGE 2 (MILD) 07/27/2016 ARIELLA PENALOZA DO Ot T82.514D BREAKDOWN (MECHANICAL) OF INFUSION PAT 07/27/2016 ARIELLA PENALOZA DO D Ot Z79.02 [facility] (CURRENT) USE OF ANTITHROMBOTI 07/27/2016 ARIELLA PENALOZA DO D Ot Z79.82 EDUCATIONAL TECHNOLOGY COORDINATOR (CURRENT) USE OF ASPIRIN 07/27/2016 ARIELLA PENALOZA DO D Ot Z85.3 PERSONAL HISTORY OF MALIGNANT NEOPLASM O 07/28/2016 JAD LIU, DANA Ot C55 MALIGNANT NEOPLASM OF UTERUS, PART UNSPE 07/28/2016 JAD LIU, DANA Ot C56.2 MALIGNANT NEOPLASM OF LEFT OVARY 07/28/[address] MD, Ot 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 07/28/[address] MD, Ot 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 07/28/[address] MD, Ot C79.89 SECONDARY MALIGNANT NEOPLASM OF OTHER SP 07/28/[address] MD, Ot D50.0 IRON DEFICIENCY ANEMIA SECONDARY TO BLOO 07/28/[address] MD, Ot D63.1 ANEMIA IN CHRONIC KIDNEY DISEASE 07/28/[address] MD, Ot D64.81 ANEMIA DUE TO ANTINEOPLASTIC CHEMOTHERAP 07/28/[address] MD, Ot I25.10 ATHSCL HEART DISEASE OF [place] CORONARY 07/28/[address] MD, Ot K21.0 GASTRO-ESOPHAGEAL REFLUX DISEASE WITH ES 07/28/[address] MD, Ot K44.9 DIAPHRAGMATIC HERNIA WITHOUT OBSTRUCTION 07/28/[address] MD, Ot N18.9 CHRONIC KIDNEY DISEASE, UNSPECIFIED 07/28/[address] MD, Ot Z79.02 EDUCATIONAL TECHNOLOGY COORDINATOR (CURRENT) USE OF ANTITHROMBOTI 07/28/[address] MD, Ot Z79.82 [facility] (CURRENT) USE OF ASPIRIN 07/28/[address] MD, Ot Z85.3 PERSONAL HISTORY OF MALIGNANT NEOPLASM O 07/28/[address] MD, Ot Z92.21 PERSONAL HISTORY OF ANTINEOPLASTIC CHEMO 07/28/[address] MD, Ot Z95.5 PRESENCE OF CORONARY ANGIOPLASTY IMPLANT 08/04/2016 ARIELLA PENALOZA DO Ot C56.9 MALIGNANT NEOPLASM OF UNSPECIFIED OVARY 08/04/2016 ARIELLA PENALOZA DO Ot E78.5 HYPERLIPIDEMIA, UNSPECIFIED 08/04/2016 ARIELLA PENALOZA DO Ot G47.33 OBSTRUCTIVE SLEEP APNEA (ADULT) (PEDIATR 08/04/2016 ARIELLA PENALOZA DO Ot I12.9 HYPERTENSIVE CHRONIC KIDNEY DISEASE W ST 08/04/2016 ARIELLA PENALOZA DO Ot I25.10 ATHSCL HEART DISEASE OF [place] CORONARY 08/04/2016 ARIELLA PENALOZA DO Ot N18.2 CHRONIC KIDNEY DISEASE, STAGE 2 (MILD) 08/04/2016 ARIELLA PENALOZA DO Ot T82.514D BREAKDOWN (MECHANICAL) OF INFUSION PAT 08/04/2016 PENALOZA ARIELLA LARIOS Ot Z79.02 [facility] (CURRENT) USE OF ANTITHROMBOTI 08/04/2016 STURGIS DO ARIELLA D Ot Z79.82 EDUCATIONAL TECHNOLOGY COORDINATOR (CURRENT) USE OF ASPIRIN 08/04/2016 [facility] ARIELLA Zheng Ot Z85.3 PERSONAL HISTORY OF MALIGNANT NEOPLASM O 08/25/[address] MD, Ot C55 MALIGNANT NEOPLASM OF UTERUS, PART UNSPE 08/25/[address] MD, Ot C56.2 MALIGNANT NEOPLASM OF LEFT OVARY 08/25/[address] MD, Ot 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 08/25/[address] MD, Ot 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 08/25/[address] MD, Ot C79.89 SECONDARY MALIGNANT NEOPLASM OF OTHER SP 08/25/[address] MD, Ot D50.0 IRON DEFICIENCY ANEMIA SECONDARY TO BLOO 08/25/[address] MD, Ot D63.1 ANEMIA IN CHRONIC KIDNEY DISEASE 08/25/[address] MD, Ot D64.81 ANEMIA DUE TO ANTINEOPLASTIC CHEMOTHERAP 08/25/[address] MD, Ot I25.10 ATHSCL HEART DISEASE OF [place] CORONARY 08/25/[address] MD, Ot K21.0 GASTRO-ESOPHAGEAL REFLUX DISEASE WITH ES 08/25/[address] MD, Ot K44.9 DIAPHRAGMATIC HERNIA WITHOUT OBSTRUCTION 08/25/[address] MD, Ot N18.9 CHRONIC KIDNEY DISEASE, UNSPECIFIED 08/25/[address] MD, Ot Z79.02 [facility] (CURRENT) USE OF ANTITHROMBOTI 08/25/[address] MD, Ot Z79.82 EDUCATIONAL TECHNOLOGY COORDINATOR (CURRENT) USE OF ASPIRIN 08/25/[address] MD, Ot Z85.3 PERSONAL HISTORY OF MALIGNANT NEOPLASM O 08/25/[address] MD, Ot Z92.21 PERSONAL HISTORY OF ANTINEOPLASTIC CHEMO 08/25/[address] MD, Ot Z95.5 PRESENCE OF CORONARY ANGIOPLASTY IMPLANT 09/10/[address] MD, Ot C56.1 MALIGNANT NEOPLASM OF RIGHT OVARY 09/21/[address] MD, Ot C55 MALIGNANT NEOPLASM OF UTERUS, PART UNSPE 09/21/[address] MD, Ot C56.2 MALIGNANT NEOPLASM OF LEFT OVARY 09/21/[address] MD, Ot 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 09/21/[address] MD, Ot 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 09/21/[address] MD, Ot C79.89 SECONDARY MALIGNANT NEOPLASM OF OTHER SP 09/21/[address] MD, Ot D50.0 IRON DEFICIENCY ANEMIA SECONDARY TO BLOO 09/21/[address] MD, Ot D63.1 ANEMIA IN CHRONIC KIDNEY DISEASE 09/21/[address] MD, Ot D64.81 ANEMIA DUE TO ANTINEOPLASTIC CHEMOTHERAP 09/21/[address] MD, Ot I25.10 ATHSCL HEART DISEASE OF [place] CORONARY 09/21/[address] MD, Ot K21.0 GASTRO-ESOPHAGEAL REFLUX DISEASE WITH ES 09/21/[address] MD, Ot K44.9 DIAPHRAGMATIC HERNIA WITHOUT OBSTRUCTION 09/21/[address] MD, Ot N18.9 CHRONIC KIDNEY DISEASE, UNSPECIFIED 09/21/[address] MD, Ot Z51.11 ENCOUNTER FOR ANTINEOPLASTIC CHEMOTHERAP 09/21/[address] MD, Ot Z79.02 [facility] (CURRENT) USE OF ANTITHROMBOTI 09/21/[address] MD, Ot Z79.82 EDUCATIONAL TECHNOLOGY COORDINATOR (CURRENT) USE OF ASPIRIN 09/21/[address] MD, Ot Z85.3 PERSONAL HISTORY OF MALIGNANT NEOPLASM O 09/21/[address] MD, Ot Z92.21 PERSONAL HISTORY OF ANTINEOPLASTIC CHEMO 09/21/[address] MD, Ot Z95.5 PRESENCE OF CORONARY ANGIOPLASTY IMPLANT 09/22/[address] MD, Ot C55 MALIGNANT NEOPLASM OF UTERUS, PART UNSPE 09/22/[address] MD, Ot C56.2 MALIGNANT NEOPLASM OF LEFT OVARY 09/22/[address] MD, Ot 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 09/22/[address] MD, Ot 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 09/22/[address] MD, Ot C79.89 SECONDARY MALIGNANT NEOPLASM OF OTHER SP 09/22/[address] MD, Ot D50.0 IRON DEFICIENCY ANEMIA SECONDARY TO BLOO 09/22/[address] MD, Ot D63.1 ANEMIA IN CHRONIC KIDNEY DISEASE 09/22/[address] MD, Ot D64.81 ANEMIA DUE TO ANTINEOPLASTIC CHEMOTHERAP 09/22/[address] MD, Ot I25.10 ATHSCL HEART DISEASE OF [place] CORONARY 09/22/[address] MD, Ot K21.0 GASTRO-ESOPHAGEAL REFLUX DISEASE WITH ES 09/22/[address] MD, Ot K44.9 DIAPHRAGMATIC HERNIA WITHOUT OBSTRUCTION 09/22/[address] MD, Ot N18.9 CHRONIC KIDNEY DISEASE, UNSPECIFIED 09/22/[address] MD, Ot Z51.11 ENCOUNTER FOR ANTINEOPLASTIC CHEMOTHERAP 09/22/[address] MD, Ot Z79.02 [facility] (CURRENT) USE OF ANTITHROMBOTI 09/22/[address] MD, Ot Z79.82 EDUCATIONAL TECHNOLOGY COORDINATOR (CURRENT) USE OF ASPIRIN 09/22/[address] MD, Ot Z85.3 PERSONAL HISTORY OF MALIGNANT NEOPLASM O 09/22/[address] MD, Ot Z92.21 PERSONAL HISTORY OF ANTINEOPLASTIC CHEMO 09/22/[address] MD, Ot Z95.5 PRESENCE OF CORONARY ANGIOPLASTY IMPLANT 09/23/[address] MD, Ot C55 MALIGNANT NEOPLASM OF UTERUS, PART UNSPE 09/23/[address] MD, Ot C56.2 MALIGNANT NEOPLASM OF LEFT OVARY 09/23/[address] MD, Ot 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 09/23/[address] MD, Ot 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 09/23/[address] MD, Ot C79.89 SECONDARY MALIGNANT NEOPLASM OF OTHER SP 09/23/[address] MD, Ot D50.0 IRON DEFICIENCY ANEMIA SECONDARY TO BLOO 09/23/[address] MD, Ot D63.1 ANEMIA IN CHRONIC KIDNEY DISEASE 09/23/[address] MD, Ot D64.81 ANEMIA DUE TO ANTINEOPLASTIC CHEMOTHERAP 09/23/[address] MD, Ot I25.10 ATHSCL HEART DISEASE OF [place] CORONARY 09/23/[address] MD, Ot K21.0 GASTRO-ESOPHAGEAL REFLUX DISEASE WITH ES 09/23/[address] MD, Ot K44.9 DIAPHRAGMATIC HERNIA WITHOUT OBSTRUCTION 09/23/[address] MD, Ot N18.9 CHRONIC KIDNEY DISEASE, UNSPECIFIED 09/23/[address] MD, Ot Z79.02 [facility] (CURRENT) USE OF ANTITHROMBOTI 09/23/[address] MD, Ot Z79.82 [facility] (CURRENT) USE OF ASPIRIN 09/23/[address] MD, Ot Z85.3 PERSONAL HISTORY OF MALIGNANT NEOPLASM O 09/23/2016 DANA STREET MD, Ot Z92.21 PERSONAL HISTORY OF ANTINEOPLASTIC CHEMO 09/23/[address] MD, Ot Z95.5 PRESENCE OF CORONARY ANGIOPLASTY IMPLANT 09/24/[address] MD, Ot C56.1 MALIGNANT NEOPLASM OF RIGHT OVARY 09/27/[address] MD, Ot C55 MALIGNANT NEOPLASM OF UTERUS, PART UNSPE 09/27/[address] MD, Ot C56.2 MALIGNANT NEOPLASM OF LEFT OVARY 09/27/[address] MD, Ot 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 09/27/[address] MD, Ot 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 09/27/[address] MD, Ot C79.89 SECONDARY MALIGNANT NEOPLASM OF OTHER SP 09/27/[address] MD, Ot D50.0 IRON DEFICIENCY ANEMIA SECONDARY TO BLOO 09/27/[address] MD, Ot D63.1 ANEMIA IN CHRONIC KIDNEY DISEASE 09/27/[address] MD, Ot D64.81 ANEMIA DUE TO ANTINEOPLASTIC CHEMOTHERAP 09/27/[address] MD, Ot I25.10 ATHSCL HEART DISEASE OF [place] CORONARY 09/27/[address] MD, Ot K21.0 GASTRO-ESOPHAGEAL REFLUX DISEASE WITH ES 09/27/[address] MD, Ot K44.9 DIAPHRAGMATIC HERNIA WITHOUT OBSTRUCTION 09/27/[address] MD, Ot N18.9 CHRONIC KIDNEY DISEASE, UNSPECIFIED 09/27/[address] MD, Ot Z51.11 ENCOUNTER FOR ANTINEOPLASTIC CHEMOTHERAP 09/27/[address] MD, Ot Z79.02 EDUCATIONAL TECHNOLOGY COORDINATOR (CURRENT) USE OF ANTITHROMBOTI 09/27/[address] MD, Ot Z79.82 [facility] (CURRENT) USE OF ASPIRIN 09/27/[address] MD, Ot Z85.3 PERSONAL HISTORY OF MALIGNANT NEOPLASM O 09/27/[address] MD, Ot Z92.21 PERSONAL HISTORY OF ANTINEOPLASTIC CHEMO 09/27/[address] MD, Ot Z95.5 PRESENCE OF CORONARY ANGIOPLASTY IMPLANT 10/27/[address] MD, Ot C55 MALIGNANT NEOPLASM OF UTERUS, PART UNSPE 10/27/[address] MD, Ot C56.2 MALIGNANT NEOPLASM OF LEFT OVARY 10/27/[address] MD, Ot 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 10/27/[address] MD, Ot 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 10/27/[address] MD, Ot C79.89 SECONDARY MALIGNANT NEOPLASM OF OTHER SP 10/27/[address] MD, Ot D50.0 IRON DEFICIENCY ANEMIA SECONDARY TO BLOO 10/27/[address] MD, Ot D63.1 ANEMIA IN CHRONIC KIDNEY DISEASE 10/27/[address] MD, Ot D64.81 ANEMIA DUE TO ANTINEOPLASTIC CHEMOTHERAP 10/27/[address] MD, Ot I25.10 ATHSCL HEART DISEASE OF [place] CORONARY 10/27/[address] MD, Ot K21.0 GASTRO-ESOPHAGEAL REFLUX DISEASE WITH ES 10/27/[address] MD, Ot K44.9 DIAPHRAGMATIC HERNIA WITHOUT OBSTRUCTION 10/27/[address] MD, Ot N18.9 CHRONIC KIDNEY DISEASE, UNSPECIFIED 10/27/[address] MD, Ot Z79.02 EDUCATIONAL TECHNOLOGY COORDINATOR (CURRENT) USE OF ANTITHROMBOTI 10/27/[address] MD, Ot Z79.82 EDUCATIONAL TECHNOLOGY COORDINATOR (CURRENT) USE OF ASPIRIN 10/27/[address] MD, Ot Z85.3 PERSONAL HISTORY OF MALIGNANT NEOPLASM O 10/27/[address] MD, Ot Z92.21 PERSONAL HISTORY OF ANTINEOPLASTIC CHEMO 10/27/[address] MD, Ot Z95.5 PRESENCE OF CORONARY ANGIOPLASTY IMPLANT 12/21/[address] MD, Ot C55 MALIGNANT NEOPLASM OF UTERUS, PART UNSPE 12/21/[address] MD, Ot C56.2 MALIGNANT NEOPLASM OF LEFT OVARY 12/21/[address] MD, Ot 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 12/21/[address] MD, Ot 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 12/21/[address] MD, Ot C79.89 SECONDARY MALIGNANT NEOPLASM OF OTHER SP 12/21/[address] MD, Ot D50.0 IRON DEFICIENCY ANEMIA SECONDARY TO BLOO 12/21/[address] MD, Ot D63.1 ANEMIA IN CHRONIC KIDNEY DISEASE 12/21/[address] MD, Ot D64.81 ANEMIA DUE TO ANTINEOPLASTIC CHEMOTHERAP 12/21/[address] MD, Ot I25.10 ATHSCL HEART DISEASE OF [place] CORONARY 12/21/[address] MD, Ot K21.0 GASTRO-ESOPHAGEAL REFLUX DISEASE WITH ES 12/21/[address] MD, Ot K44.9 DIAPHRAGMATIC HERNIA WITHOUT OBSTRUCTION 12/21/[address] MD, Ot N18.9 CHRONIC KIDNEY DISEASE, UNSPECIFIED 12/21/[address] MD, Ot Z45.2 ENCOUNTER FOR ADJUSTMENT AND MANAGEMENT 12/21/[address] MD, Ot Z79.02 [facility] (CURRENT) USE OF ANTITHROMBOTI 12/21/[address] MD, Ot Z79.82 EDUCATIONAL TECHNOLOGY COORDINATOR (CURRENT) USE OF ASPIRIN 12/21/[address] MD, Ot Z85.3 PERSONAL HISTORY OF MALIGNANT NEOPLASM O 12/21/[address] MD, Ot Z92.21 PERSONAL HISTORY OF ANTINEOPLASTIC CHEMO 12/21/[address] MD, Ot Z95.5 PRESENCE OF CORONARY ANGIOPLASTY IMPLANT 12/22/[address] MD, Ot Z12.31 ENCNTR SCREEN MAMMOGRAM FOR MALIGNANT NE 12/27/[address] MD, Ot C55 MALIGNANT NEOPLASM OF UTERUS, PART UNSPE 12/27/[address] MD, Ot C56.2 MALIGNANT NEOPLASM OF LEFT OVARY 12/27/[address] MD, Ot 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 12/27/[address] MD, Ot 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 12/27/[address] MD, Ot C79.89 SECONDARY MALIGNANT NEOPLASM OF OTHER SP 12/27/[address] MD, Ot D50.0 IRON DEFICIENCY ANEMIA SECONDARY TO BLOO 12/27/[address] MD, Ot D63.1 ANEMIA IN CHRONIC KIDNEY DISEASE 12/27/[address] MD, Ot D64.81 ANEMIA DUE TO ANTINEOPLASTIC CHEMOTHERAP 12/27/[address] MD, Ot I25.10 ATHSCL HEART DISEASE OF [place] CORONARY 12/27/[address] MD, Ot K21.0 GASTRO-ESOPHAGEAL REFLUX DISEASE WITH ES 12/27/[address] MD, Ot K44.9 DIAPHRAGMATIC HERNIA WITHOUT OBSTRUCTION 12/27/[address] MD, Ot N18.9 CHRONIC KIDNEY DISEASE, UNSPECIFIED 12/27/[address] MD, Ot Z45.2 ENCOUNTER FOR ADJUSTMENT AND MANAGEMENT 12/27/[address] MD, Ot Z79.02 [facility] (CURRENT) USE OF ANTITHROMBOTI 12/27/[address] MD, Ot Z79.82 [facility] (CURRENT) USE OF ASPIRIN 12/27/[address] MD, Ot Z85.3 PERSONAL HISTORY OF MALIGNANT NEOPLASM O 12/27/[address] MD, Ot Z92.21 PERSONAL HISTORY OF ANTINEOPLASTIC CHEMO 12/27/[address] MD, Ot Z95.5 PRESENCE OF CORONARY ANGIOPLASTY IMPLANT 12/27/[address] MD, Ot Z12.31 ENCNTR SCREEN MAMMOGRAM FOR MALIGNANT NE 01/01/[address] MD, Ot Z12.31 ENCNTR SCREEN MAMMOGRAM FOR MALIGNANT NE 01/06/[address] MD, Ot C55 MALIGNANT NEOPLASM OF UTERUS, PART UNSPE 01/06/[address] MD, Ot C56.2 MALIGNANT NEOPLASM OF LEFT OVARY 01/06/[address] MD, Ot 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 01/06/[address] MD, Ot 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 01/06/[address] MD, Ot C79.89 SECONDARY MALIGNANT NEOPLASM OF OTHER SP 01/06/[address] MD, Ot D50.0 IRON DEFICIENCY ANEMIA SECONDARY TO BLOO 01/06/[address] MD, Ot D63.1 ANEMIA IN CHRONIC KIDNEY DISEASE 01/06/[address] MD, Ot D64.81 ANEMIA DUE TO ANTINEOPLASTIC CHEMOTHERAP 01/06/[address] MD, Ot I25.10 ATHSCL HEART DISEASE OF [place] CORONARY 01/06/[address] MD, Ot K21.0 GASTRO-ESOPHAGEAL REFLUX DISEASE WITH ES 01/06/[address] MD, Ot K44.9 DIAPHRAGMATIC HERNIA WITHOUT OBSTRUCTION 01/06/[address] MD, Ot N18.9 CHRONIC KIDNEY DISEASE, UNSPECIFIED 01/06/[address] MD, Ot Z45.2 ENCOUNTER FOR ADJUSTMENT AND MANAGEMENT 01/06/[address] MD Ot Z79.02 EDUCATIONAL TECHNOLOGY COORDINATOR (CURRENT) USE OF ANTITHROMBOTI 01/06/[address] MD, Ot Z79.82 [facility] (CURRENT) USE OF ASPIRIN 01/06/[address] MD, Ot Z85.3 PERSONAL HISTORY OF MALIGNANT NEOPLASM O 01/06/[address] MD, Ot Z92.21 PERSONAL HISTORY OF ANTINEOPLASTIC CHEMO 01/06/[address] MD, Ot Z95.5 PRESENCE OF CORONARY ANGIOPLASTY IMPLANT 01/07/2017 Ot V76.12 OTH SCREEN MAMMO-MALIGN NEOPLASM OF [place] 01/07/2017 Ot 174.9 MALIGN NEOPL BREAST NOS 01/07/2017 Ot 530.11 REFLUX ESOPHAGITIS 01/07/2017 Ot 562.10 DIVERTICULOSIS COLON (W/O MENT OF HEMORR 01/07/2017 Ot 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 01/07/2017 Ot 183.0 MALIGN NEOPL OVARY 01/07/2017 Ot 197.5 SEC MALIG DELPHINE LG BOWEL 01/07/2017 Ot 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 01/07/2017 Ot 285.9 ANEMIA NOS 01/07/2017 Ot 287.5 THROMBOCYTOPENIA NOS 01/07/2017 Ot V10.3 HX OF BREAST MALIGNANCY 01/07/2017 Ot V15.3 HX OF IRRADIATION 01/07/2017 Ot V45.77 ACQRD ABSENCE OF GENITAL ORGANS 01/07/2017 Ot V58.69 OTH MED,LT, CURRENT USE 01/07/2017 Ot V87.41 PERSONAL HISTORY OF ANTINEOPLASTIC CHEMO 01/07/2017 Ot V72.84 EXAM PRE- OPERATIVE NOS 01/07/2017 Ot 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 01/07/2017 Ot 183.0 MALIGN NEOPL OVARY 01/07/2017 Ot V10.3 HX OF BREAST MALIGNANCY 01/07/2017 Ot V76.11 SCRN MAMMO- HIGH RISK PT, MALIGNANT NEOPL 01/07/2017 Ot 183.0 MALIGN NEOPL OVARY 01/07/2017 Ot 786.09 RESPIRATORY ABNORM NEC 01/07/2017 Ot 786.09 RESPIRATORY ABNORM NEC 01/07/2017 JAD LIU, DANA Ot 183.0 MALIGN NEOPL OVARY 01/07/2017 BHARAT LIU, FERNY Gordon Ot V72.84 EXAM PRE-OPERATIVE NOS 01/07/2017 FERNY NICHOLSON MD Ot V72.84 EXAM PRE-OPERATIVE NOS 01/07/2017 FERNY NICHOLSON MD Ot V72.84 EXAM PRE-OPERATIVE NOS 01/07/2017 JAD LIU, DANA Ot 721.0 CERVICAL SPONDYLOSIS 01/07/[address] MD Ot V76.12 OTH SCREEN MAMMO-MALIGN NEOPLASM OF [place] 01/07/2017 BHARAT LIU, FERNY Gordon Ot V72.84 EXAM PRE-OPERATIVE NOS 01/07/2017 FERNY NICHOLSON MD Ot V72.84 EXAM PRE-OPERATIVE NOS 01/07/2017 FERNY NICHOLSON MD Ot V72.84 EXAM PRE-OPERATIVE NOS 01/07/2017 MAGDALENA CHOW, ALFREDO Alvarado Ot 585.3 CHRONIC KIDNEY DISEASE, STAGE III (MODER 01/07/2017 MAGDALENA CHOW, ALFREDO Alvarado Ot 793.5 NOSP (ABN) FINDINGS ON RADIOLOGICAL OT 01/07/2017 FERNY NICHOLSON MD Ot 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 01/07/2017 FERNY NICHOLSON MD Ot V72.84 EXAM PRE-OPERATIVE NOS 01/07/[address] MD Ot 174.9 MALIGN NEOPL BREAST NOS 01/07/[address] MD Ot V76.11 SCRN MAMMO-HIGH RISK PT, MALIGNANT NEOPL 01/07/[address] MD Ot 183.0 MALIGN NEOPL OVARY 01/07/2017 BAIMA, NALINI L SHEET METAL ERECTOR Ot 272.4 HYPERLIPIDEMIA NEC/NOS 01/07/2017 BAIMA, NALINI L SHEET METAL ERECTOR Ot 401.9 HYPERTENSION NOS 01/07/2017 BAIMA, NALINI L SHEET METAL ERECTOR Ot 414.9 CHR ISCHEMIC HRT DIS NOS 01/07/2017 JAZ, NALINI L SHEET METAL ERECTOR Ot 437.9 CEREBROVASC DISEASE NOS 01/07/2017 BAIMA, NALINI L SHEET METAL ERECTOR Ot 272.4 HYPERLIPIDEMIA NEC/NOS 01/07/2017 CORYMA, NALINI L SHEET METAL ERECTOR Ot 401.9 HYPERTENSION NOS 01/07/2017 BAIMA, NALINI L SHEET METAL ERECTOR Ot 414.00 CORON ATHEROSCLER NOS TYPE VESSEL, NATIV 01/07/2017 JAZ, NALINI L SHEET METAL ERECTOR Ot 437.9 CEREBROVASC DISEASE NOS 01/07/[address] MD Ot 174.9 MALIGN NEOPL BREAST NOS 01/07/[address] MD Ot 183.0 MALIGN NEOPL OVARY 01/07/2017 FRENY NICHOLSON MD Ot 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 01/07/2017 FERNY NICHOLSON MD Ot V72.84 EXAM PRE-OPERATIVE NOS 01/07/[address] MD Ot C50.919 MALIGNANT NEOPLASM OF UNSP SITE OF UNSPE 01/07/[address] MD Ot C56.9 MALIGNANT NEOPLASM OF UNSPECIFIED OVARY 01/07/[address] MD Ot T85.698A [facility] COMPL OF INTERNAL PROSTH DEV/GRFT, 01/07/2017 TEODORO HERNANDEZ DO Ot Z01.818 ENCOUNTER FOR OTHER PREPROCEDURAL EXAMIN 01/07/[address] MD Ot C56.2 MALIGNANT NEOPLASM OF LEFT OVARY 01/07/[address] MD Ot Z85.3 PERSONAL HISTORY OF MALIGNANT NEOPLASM O 01/07/[address] MD Ot C50.919 MALIGNANT NEOPLASM OF UNSP SITE OF UNSPE 01/07/[address] MD, Ot C56.9 MALIGNANT NEOPLASM OF UNSPECIFIED OVARY 01/07/[address] MD Ot Z12.31 ENCNTR SCREEN MAMMOGRAM FOR MALIGNANT NE 01/07/[address] MD Ot C56.1 MALIGNANT NEOPLASM OF RIGHT OVARY 01/07/[address] MD Ot N18.9 CHRONIC KIDNEY DISEASE, UNSPECIFIED 01/07/2017 ARIELLA PENALOZA DO Ot C55 MALIGNANT NEOPLASM OF UTERUS, PART UNSPE 01/07/2017 ARIELLA PENALOZA DO Ot C56.2 MALIGNANT NEOPLASM OF LEFT OVARY 01/07/2017 ARIELLA PENALOZA DO Ot E78.5 HYPERLIPIDEMIA, UNSPECIFIED 01/07/2017 ARIELLA PENALOZA DO Ot G47.33 OBSTRUCTIVE SLEEP APNEA (ADULT) (PEDIATR 01/07/2017 ARIELLA PENALOZA DO Ot I12.9 HYPERTENSIVE CHRONIC KIDNEY DISEASE W ST 01/07/2017 ARIELLA PENALOZA DO Ot I25.10 ATHSCL HEART DISEASE OF [place] CORONARY 01/07/2017 ARIELLA PENALOZA DO Ot N18.2 CHRONIC KIDNEY DISEASE, STAGE 2 (MILD) 01/07/2017 ARIELLA PENALOZA DO Ot T82.514A BREAKDOWN (MECHANICAL) OF INFUSION PAT 01/07/2017 ARIELLA PENALOZA DO Ot Z79.02 EDUCATIONAL TECHNOLOGY COORDINATOR (CURRENT) USE OF ANTITHROMBOTI 01/07/2017 ARIELLA PENALOZA DO Ot Z79.82 EDUCATIONAL TECHNOLOGY COORDINATOR (CURRENT) USE OF ASPIRIN 01/07/2017 ARIELLA PENALOZA DO Ot Z85.3 PERSONAL HISTORY OF MALIGNANT NEOPLASM O 01/07/2017 ARIELLA PENALOZA DO Ot C56.9 MALIGNANT NEOPLASM OF UNSPECIFIED OVARY 01/07/2017 ARIELLA PENALOZA DO Ot E78.5 HYPERLIPIDEMIA, UNSPECIFIED 01/07/2017 ARIELLA PENALOZA DO Ot G47.33 OBSTRUCTIVE SLEEP APNEA (ADULT) (PEDIATR 01/07/2017 ARIELLA PENALOZA DO Ot I12.9 HYPERTENSIVE CHRONIC KIDNEY DISEASE W ST 01/07/2017 ARIELLA PENALOZA DO Ot I25.10 ATHSCL HEART DISEASE OF [place] CORONARY 01/07/2017 ARIELLA PENALOZA DO Ot N18.2 CHRONIC KIDNEY DISEASE, STAGE 2 (MILD) 01/07/2017 ARIELLA PENALOZA DO Ot T82.514D BREAKDOWN (MECHANICAL) OF INFUSION PAT 01/07/2017 ARIELLA PENALOZA DO Ot Z79.02 [facility] (CURRENT) USE OF ANTITHROMBOTI 01/07/2017 ARIELLA PENALOZA DO Ot Z79.82 [facility] (CURRENT) USE OF ASPIRIN 01/07/2017 ARIELLA PENALOZA DO Ot Z85.3 PERSONAL HISTORY OF MALIGNANT NEOPLASM O 01/07/[address] MD, Ot C56.1 MALIGNANT NEOPLASM OF RIGHT OVARY 01/07/[address] MD, Ot Z12.31 ENCNTR SCREEN MAMMOGRAM FOR MALIGNANT NE 01/07/[address] MD, Ot C55 MALIGNANT NEOPLASM OF UTERUS, PART UNSPE 01/07/[address] MD, Ot C56.2 MALIGNANT NEOPLASM OF LEFT OVARY 01/07/[address] MD, Ot 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 01/07/[address] MD, Ot 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 01/07/[address] MD, Ot C79.89 SECONDARY MALIGNANT NEOPLASM OF OTHER SP 01/07/[address] MD, Ot D50.0 IRON DEFICIENCY ANEMIA SECONDARY TO BLOO 01/07/[address] MD, Ot D63.1 ANEMIA IN CHRONIC KIDNEY DISEASE 01/07/[address] MD, Ot D64.81 ANEMIA DUE TO ANTINEOPLASTIC CHEMOTHERAP 01/07/[address] MD, Ot I25.10 ATHSCL HEART DISEASE OF [place] CORONARY 01/07/[address] MD, Ot K21.0 GASTRO-ESOPHAGEAL REFLUX DISEASE WITH ES 01/07/[address] MD, Ot K44.9 DIAPHRAGMATIC HERNIA WITHOUT OBSTRUCTION 01/07/[address] MD, Ot N18.9 CHRONIC KIDNEY DISEASE, UNSPECIFIED 01/07/[address] MD, Ot Z45.2 ENCOUNTER FOR ADJUSTMENT AND MANAGEMENT 01/07/[address] MD, Ot Z79.02 EDUCATIONAL TECHNOLOGY COORDINATOR (CURRENT) USE OF ANTITHROMBOTI 01/07/[address] MD, Ot Z79.82 [facility] (CURRENT) USE OF ASPIRIN 01/07/[address] MD, Ot Z85.3 PERSONAL HISTORY OF MALIGNANT NEOPLASM O 01/07/[address] MD, Ot Z92.21 PERSONAL HISTORY OF ANTINEOPLASTIC CHEMO 01/07/[address] MD, Ot Z95.5 PRESENCE OF CORONARY ANGIOPLASTY IMPLANT 01/20/2017 LAURA LIU FACC, ALI FACP CCDS Ot E66.09 OTHER OBESITY DUE TO EXCESS CALORIES 01/20/2017 LAURA LIU FACC, ALI FACP CCDS Ot E78.4 OTHER HYPERLIPIDEMIA 01/20/2017 LAURA LIU FACC, ALI FACP CCDS Ot G47.33 OBSTRUCTIVE SLEEP APNEA (ADULT) (PEDIATR 01/20/2017 LAURA LIU FACC, ALI FACP CCDS Ot I12.9 HYPERTENSIVE CHRONIC KIDNEY DISEASE W ST 01/20/2017 LAURA LIU FACC, ALI FACP CCDS Ot I25.10 ATHSCL HEART DISEASE OF [place] CORONARY 01/20/2017 LAURA LIU FACC, ALI FACP CCDS Ot I65.23 OCCLUSION AND STENOSIS OF BILATERAL [place] 01/20/2017 LAURA LIU FACC, ALI FACP CCDS Ot N18.2 CHRONIC KIDNEY DISEASE, STAGE 2 (MILD) 01/20/2017 LAURA LIU FACC, ALI FACP CCDS Ot R07.89 OTHER CHEST PAIN 02/01/[address] MD Ot C55 MALIGNANT NEOPLASM OF UTERUS, PART UNSPE 02/01/[address] MD, Ot C56.2 MALIGNANT NEOPLASM OF LEFT OVARY 02/01/[address] MD, Ot 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 02/01/[address] MD, Ot 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 02/01/[address] MD Ot C79.89 SECONDARY MALIGNANT NEOPLASM OF OTHER SP 02/01/[address] MD, Ot D50.0 IRON DEFICIENCY ANEMIA SECONDARY TO BLOO 02/01/[address] MD, Ot D63.1 ANEMIA IN CHRONIC KIDNEY DISEASE 02/01/[address] MD, Ot D64.81 ANEMIA DUE TO ANTINEOPLASTIC CHEMOTHERAP 02/01/[address] MD, Ot I25.10 ATHSCL HEART DISEASE OF [place] CORONARY 02/01/[address] MD, Ot K21.0 GASTRO-ESOPHAGEAL REFLUX DISEASE WITH ES 02/01/[address] MD, Ot K44.9 DIAPHRAGMATIC HERNIA WITHOUT OBSTRUCTION 02/01/[address] MD, Ot N18.9 CHRONIC KIDNEY DISEASE, UNSPECIFIED 02/01/[address] MD, Ot Z45.2 ENCOUNTER FOR ADJUSTMENT AND MANAGEMENT 02/01/[address] MD, Ot Z79.02 EDUCATIONAL TECHNOLOGY COORDINATOR (CURRENT) USE OF ANTITHROMBOTI 02/01/[address] MD, Ot Z79.82 [facility] (CURRENT) USE OF ASPIRIN 02/01/[address] MD, Ot Z85.3 PERSONAL HISTORY OF MALIGNANT NEOPLASM O 02/01/[address] MD, Ot Z92.21 PERSONAL HISTORY OF ANTINEOPLASTIC CHEMO 02/01/[address] MD, Ot Z95.5 PRESENCE OF CORONARY ANGIOPLASTY IMPLANT 02/02/2017 LAURA LIU FACC, MILKA FACP CCDS Ot E66.09 OTHER OBESITY DUE TO EXCESS CALORIES 02/02/2017 LAURA LIU FACC ALI FACP CCDS Ot E78.4 OTHER HYPERLIPIDEMIA 02/02/2017 LAURA LIU FACC, ALI FACP CCDS Ot G47.33 OBSTRUCTIVE SLEEP APNEA (ADULT) (PEDIATR 02/02/2017 LAURA LIU FACC, ALI FACP CCDS Ot I12.9 HYPERTENSIVE CHRONIC KIDNEY DISEASE W ST 02/02/2017 LAURA LIU FACC ALI FACP CCDS Ot I25.10 ATHSCL HEART DISEASE OF [place] CORONARY 02/02/2017 MILKA SANCHEZ MD, FACC FACP CCDS Ot I65.23 OCCLUSION AND STENOSIS OF BILATERAL [place] 02/02/2017 LAURA LIU FACC ALI FACP CCDS Ot N18.2 CHRONIC KIDNEY DISEASE, STAGE 2 (MILD) 02/02/2017 LAURA LIU FACC ALI FACP CCDS Ot R07.89 OTHER CHEST PAIN 02/10/2017 LAURA LIU FACC, MILKA FACP CCDS Ot E66.09 OTHER OBESITY DUE TO EXCESS CALORIES 02/10/2017 LAURA LIU FACC, ALI FACP CCDS Ot E78.4 OTHER HYPERLIPIDEMIA 02/10/2017 LAURA LIU FACC, ALI FACP CCDS Ot G47.33 OBSTRUCTIVE SLEEP APNEA (ADULT) (PEDIATR 02/10/2017 LAURA LIU FACC, ALI FACP CCDS Ot I12.9 HYPERTENSIVE CHRONIC KIDNEY DISEASE W ST 02/10/2017 LAURA LIU FACC, ALI FACP CCDS Ot I25.10 ATHSCL HEART DISEASE OF [place] CORONARY 02/10/2017 LAURA LIU FACC, MILKA FACP CCDS Ot I65.23 OCCLUSION AND STENOSIS OF BILATERAL [place] 02/10/2017 LAURA LIU FACC, MILKA FACP CCDS Ot N18.2 CHRONIC KIDNEY DISEASE, STAGE 2 (MILD) 02/10/2017 LAURA LIU FACC, MILKA FACP CCDS Ot R07.89 OTHER CHEST PAIN 04/05/[address] MD Ot C55 MALIGNANT NEOPLASM OF UTERUS, PART UNSPE 04/05/[address] MD, Ot C56.2 MALIGNANT NEOPLASM OF LEFT OVARY 04/05/[address] MD, Ot 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 04/05/[address] MD, Ot 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 04/05/[address] MD, Ot C79.89 SECONDARY MALIGNANT NEOPLASM OF OTHER SP 04/05/[address] MD, Ot D50.0 IRON DEFICIENCY ANEMIA SECONDARY TO BLOO 04/05/[address] MD, Ot D63.1 ANEMIA IN CHRONIC KIDNEY DISEASE 04/05/[address] MD, Ot D64.81 ANEMIA DUE TO ANTINEOPLASTIC CHEMOTHERAP 04/05/[address] MD, Ot I25.10 ATHSCL HEART DISEASE OF [place] CORONARY 04/05/[address] MD, Ot K21.0 GASTRO-ESOPHAGEAL REFLUX DISEASE WITH ES 04/05/[address] MD, Ot K44.9 DIAPHRAGMATIC HERNIA WITHOUT OBSTRUCTION 04/05/[address] MD, Ot N18.9 CHRONIC KIDNEY DISEASE, UNSPECIFIED 04/05/[address] MD, Ot Z45.2 ENCOUNTER FOR ADJUSTMENT AND MANAGEMENT 04/05/[address] MD Ot Z79.02 EDUCATIONAL TECHNOLOGY COORDINATOR (CURRENT) USE OF ANTITHROMBOTI 04/05/[address] MD Ot Z79.82 EDUCATIONAL TECHNOLOGY COORDINATOR (CURRENT) USE OF ASPIRIN 04/05/[address] MD Ot Z85.3 PERSONAL HISTORY OF MALIGNANT NEOPLASM O 04/05/[address] MD Ot Z92.21 PERSONAL HISTORY OF ANTINEOPLASTIC CHEMO 04/05/[address] MD Ot Z95.5 PRESENCE OF CORONARY ANGIOPLASTY IMPLANT 06/29/2017 Ot 530.11 REFLUX ESOPHAGITIS 06/29/2017 Ot 562.10 DIVERTICULOSIS COLON (W/O MENT OF HEMORR 06/29/2017 Ot V72.84 EXAM PRE- OPERATIVE NOS 06/29/2017 Ot 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 06/29/2017 Ot 183.0 MALIGN NEOPL OVARY 06/29/2017 Ot V10.3 HX OF BREAST MALIGNANCY 06/29/2017 Ot V76.11 SCRN MAMMO- HIGH RISK PT, MALIGNANT NEOPL 06/29/2017 Ot 183.0 MALIGN NEOPL OVARY 06/29/2017 Ot 786.09 RESPIRATORY ABNORM NEC 06/29/2017 Ot 786.09 RESPIRATORY ABNORM NEC 06/29/[address] MD Ot 183.0 MALIGN NEOPL OVARY 06/29/2017 FERNY NICHOLSON MD Ot V72.84 EXAM PRE-OPERATIVE NOS 06/29/2017 FERNY NICHOLSON MD Ot V72.84 EXAM PRE-OPERATIVE NOS 06/29/2017 FERYN NICHOLSON MD Ot V72.84 EXAM PRE-OPERATIVE NOS 06/29/[address] MD Ot 721.0 CERVICAL SPONDYLOSIS 06/29/[address] MD Ot V76.12 OTH SCREEN MAMMO-MALIGN NEOPLASM OF [place] 06/29/2017 FERNY NICHOLSON MD Ot V72.84 EXAM PRE-OPERATIVE NOS 06/29/2017 FERNY NICHOLSON MD Ot V72.84 EXAM PRE-OPERATIVE NOS 06/29/2017 FERNY NICHOLSON MD Ot V72.84 EXAM PRE-OPERATIVE NOS 06/29/2017 ALFREDO CADENA Ot 585.3 CHRONIC KIDNEY DISEASE, STAGE III (MODER 06/29/2017 MAGDALENA CHOW, ALFREDO K Ot 793.5 NOSP (ABN) FINDINGS ON RADIOLOGICAL OT 06/29/2017 FERNY NICHOLSON MD Ot 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 06/29/2017 FERNY NICHOLSON MD Ot V72.84 EXAM PRE-OPERATIVE NOS 06/29/[address] MD Ot 174.9 MALIGN NEOPL BREAST NOS 06/29/[address] MD Ot V76.11 SCRN MAMMO-HIGH RISK PT, MALIGNANT NEOPL 06/29/[address] MD Ot 183.0 MALIGN NEOPL OVARY 06/29/2017 BAIMA, NALINI L SHEET METAL ERECTOR Ot 272.4 HYPERLIPIDEMIA NEC/NOS 06/29/2017 BAIMA, NALINI L SHEET METAL ERECTOR Ot 401.9 HYPERTENSION NOS 06/29/2017 BAIMA, NALINI L SHEET METAL ERECTOR Ot 414.9 CHR ISCHEMIC HRT DIS NOS 06/29/2017 CORYMA, NALINI L SHEET METAL ERECTOR Ot 437.9 CEREBROVASC DISEASE NOS 06/29/2017 BAIMA, NALINI L SHEET METAL ERECTOR Ot 272.4 HYPERLIPIDEMIA NEC/NOS 06/29/2017 BAIMA, NALINI L SHEET METAL ERECTOR Ot 401.9 HYPERTENSION NOS 06/29/2017 BAIMA, NALINI L SHEET METAL ERECTOR Ot 414.00 CORON ATHEROSCLER NOS TYPE VESSEL, NATIV 06/29/2017 BAIMA, NALINI L SHEET METAL ERECTOR Ot 437.9 CEREBROVASC DISEASE NOS 06/29/[address] MD Ot 174.9 MALIGN NEOPL BREAST NOS 06/29/[address] MD Ot 183.0 MALIGN NEOPL OVARY 06/29/2017 FERNY NICHOLSON MD Ot 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 06/29/2017 FERNY NICHOLSON MD Ot V72.84 EXAM PRE-OPERATIVE NOS 06/29/[address] MD Ot C50.919 MALIGNANT NEOPLASM OF UNSP SITE OF UNSPE 06/29/[address] MD Ot C56.9 MALIGNANT NEOPLASM OF UNSPECIFIED OVARY 06/29/[address] MD Ot T85.698A [facility] COMPL OF INTERNAL PROSTH DEV/GRFT, 06/29/2017 TEODORO HERNANDEZ DO Ot Z01.818 ENCOUNTER FOR OTHER PREPROCEDURAL EXAMIN 06/29/[address] MD Ot C56.2 MALIGNANT NEOPLASM OF LEFT OVARY 06/29/[address] MD Ot Z85.3 PERSONAL HISTORY OF MALIGNANT NEOPLASM O 06/29/[address] MD Ot C50.919 MALIGNANT NEOPLASM OF UNSP SITE OF UNSPE 06/29/[address] MD, Ot C56.9 MALIGNANT NEOPLASM OF UNSPECIFIED OVARY 06/29/[address] MD Ot Z12.31 ENCNTR SCREEN MAMMOGRAM FOR MALIGNANT NE 06/29/[address] MD Ot C56.1 MALIGNANT NEOPLASM OF RIGHT OVARY 06/29/[address] MD Ot N18.9 CHRONIC KIDNEY DISEASE, UNSPECIFIED 06/29/2017 ARIELLA PENALOZA DO Ot C55 MALIGNANT NEOPLASM OF UTERUS, PART UNSPE 06/29/2017 ARIELLA PENALOZA DO Ot C56.2 MALIGNANT NEOPLASM OF LEFT OVARY 06/29/2017 ARIELLA PENALOZA DO Ot E78.5 HYPERLIPIDEMIA, UNSPECIFIED 06/29/2017 ARIELLA PENALOZA DO Ot G47.33 OBSTRUCTIVE SLEEP APNEA (ADULT) (PEDIATR 06/29/2017 ARIELLA PENALOZA DO Ot I12.9 HYPERTENSIVE CHRONIC KIDNEY DISEASE W ST 06/29/2017 ARIELLA PENALOZA DO Ot I25.10 ATHSCL HEART DISEASE OF [place] CORONARY 06/29/2017 ARIELLA PENALOZA DO Ot N18.2 CHRONIC KIDNEY DISEASE, STAGE 2 (MILD) 06/29/2017 ARIELLA PENALOZA DO Ot T82.514A BREAKDOWN (MECHANICAL) OF INFUSION PAT 06/29/2017 ARIELLA PENALOZA DO Ot Z79.02 EDUCATIONAL TECHNOLOGY COORDINATOR (CURRENT) USE OF ANTITHROMBOTI 06/29/2017 ARIELLA PENALOZA DO Ot Z79.82 [facility] (CURRENT) USE OF ASPIRIN 06/29/2017 ARIELLA PENALOZA DO Ot Z85.3 PERSONAL HISTORY OF MALIGNANT NEOPLASM O 06/29/2017 ARIELLA PENALOZA DO Ot C56.9 MALIGNANT NEOPLASM OF UNSPECIFIED OVARY 06/29/2017 ARIELLA PENALOZA DO Ot E78.5 HYPERLIPIDEMIA, UNSPECIFIED 06/29/2017 ARIELLA PENALOZA DO Ot G47.33 OBSTRUCTIVE SLEEP APNEA (ADULT) (PEDIATR 06/29/2017 PENALOZA ARIELLA LARIOS Ot I12.9 HYPERTENSIVE CHRONIC KIDNEY DISEASE W ST 06/29/2017 ARIELLA PENALOZA DO Ot I25.10 ATHSCL HEART DISEASE OF [place] CORONARY 06/29/2017 YASH PENALOZA DOTT Norm Ot N18.2 CHRONIC KIDNEY DISEASE, STAGE 2 (MILD) 06/29/2017 ARIELLA PENALOZA DO Ot T82.514D BREAKDOWN (MECHANICAL) OF INFUSION PAT 06/29/2017 ARIELLA PENALOZA DO Ot Z79.02 EDUCATIONAL TECHNOLOGY COORDINATOR (CURRENT) USE OF ANTITHROMBOTI 06/29/2017 ARIELLA PENALOZA DO Ot Z79.82 EDUCATIONAL TECHNOLOGY COORDINATOR (CURRENT) USE OF ASPIRIN 06/29/2017 ARIELLA PENALOZA DO Ot Z85.3 PERSONAL HISTORY OF MALIGNANT NEOPLASM O 06/29/2017 JAD LIU, DANA Ot C56.1 MALIGNANT NEOPLASM OF RIGHT OVARY 06/29/[address] MD Ot Z12.31 ENCNTR SCREEN MAMMOGRAM FOR MALIGNANT NE 06/29/2017 LAURA LIU FACC, ALI FACP CCDS Ot E66.09 OTHER OBESITY DUE TO EXCESS CALORIES 06/29/2017 LAURA LIU FACC, ALI FACP CCDS Ot E78.4 OTHER HYPERLIPIDEMIA 06/29/2017 LAURA LIU FACC, ALI FACP CCDS Ot G47.33 OBSTRUCTIVE SLEEP APNEA (ADULT) (PEDIATR 06/29/2017 LAURA LIU FACC, ALI FACP CCDS Ot I12.9 HYPERTENSIVE CHRONIC KIDNEY DISEASE W ST 06/29/2017 LAURA LIU FACC, ALI FACP CCDS Ot I25.10 ATHSCL HEART DISEASE OF [place] CORONARY 06/29/2017 LAURA LIU FACC, ALI FACP CCDS Ot I65.23 OCCLUSION AND STENOSIS OF [place] 06/29/2017 LAURA LIU FACC, ALI FACP CCDS Ot N18.2 CHRONIC KIDNEY DISEASE, STAGE 2 (MILD) 06/29/2017 LAURA LIU FACC, ALI FACP CCDS Ot R07.89 OTHER CHEST PAIN 06/29/2017 LAURA LIU FACC, ALI FACP CCDS Ot E66.09 OTHER OBESITY DUE TO EXCESS CALORIES 06/29/2017 LAURA LIU FACC, ALI FACP CCDS Ot E78.4 OTHER HYPERLIPIDEMIA 06/29/2017 LAURA LIU FACC, MILKA FACP CCDS Ot G47.33 OBSTRUCTIVE SLEEP APNEA (ADULT) (PEDIATR 06/29/2017 LAURA LIU FACC, MILKA FACP CCDS Ot I12.9 HYPERTENSIVE CHRONIC KIDNEY DISEASE W ST 06/29/2017 LAURA LIU FACC, ALI FACP CCDS Ot I25.10 ATHSCL HEART DISEASE OF [place] CORONARY 06/29/2017 LAURA LIU FACC, MILKA FACP CCDS Ot I65.23 OCCLUSION AND STENOSIS OF [place] 06/29/2017 LAURA LIU FACC, MILKA FACP CCDS Ot N18.2 CHRONIC KIDNEY DISEASE, STAGE 2 (MILD) 06/29/2017 LAURA LIU FACC, MILKA FACP CCDS Ot R07.89 OTHER CHEST PAIN 06/30/[address] MD, Ot C55 MALIGNANT NEOPLASM OF UTERUS, PART UNSPE 06/30/[address] MD, Ot C56.2 MALIGNANT NEOPLASM OF LEFT OVARY 06/30/[address] MD, Ot 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 06/30/[address] MD, Ot 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 06/30/[address] MD, Ot C79.89 SECONDARY MALIGNANT NEOPLASM OF OTHER SP 06/30/[address] MD, Ot D50.0 IRON DEFICIENCY ANEMIA SECONDARY TO BLOO 06/30/[address] MD, Ot D63.1 ANEMIA IN CHRONIC KIDNEY DISEASE 06/30/[address] MD, Ot D64.81 ANEMIA DUE TO ANTINEOPLASTIC CHEMOTHERAP 06/30/[address] MD, Ot I25.10 ATHSCL HEART DISEASE OF [place] CORONARY 06/30/[address] MD, Ot K21.0 GASTRO-ESOPHAGEAL REFLUX DISEASE WITH ES 06/30/[address] MD, Ot K44.9 DIAPHRAGMATIC HERNIA WITHOUT OBSTRUCTION 06/30/[address] MD, Ot N18.9 CHRONIC KIDNEY DISEASE, UNSPECIFIED 06/30/[address] MD, Ot Z79.02 EDUCATIONAL TECHNOLOGY COORDINATOR (CURRENT) USE OF ANTITHROMBOTI 06/30/[address] MD, Ot Z79.82 [facility] (CURRENT) USE OF ASPIRIN 06/30/[address] MD, Ot Z85.3 PERSONAL HISTORY OF MALIGNANT NEOPLASM O 06/30/[address] MD, Ot Z92.21 PERSONAL HISTORY OF ANTINEOPLASTIC CHEMO 06/30/[address] MD, Ot Z95.5 PRESENCE OF CORONARY ANGIOPLASTY IMPLANT 08/04/2017 ALFREDO CADENA Ot Z13.820 ENCOUNTER FOR SCREENING FOR OSTEOPOROSIS 08/06/[address] MD, Ot C55 MALIGNANT NEOPLASM OF UTERUS, PART UNSPE 08/06/[address] MD, Ot C56.2 MALIGNANT NEOPLASM OF LEFT OVARY 08/06/[address] MD, Ot 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 08/06/[address] MD, Ot 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 08/06/[address] MD, Ot C79.89 SECONDARY MALIGNANT NEOPLASM OF OTHER SP 08/06/[address] MD, Ot D50.0 IRON DEFICIENCY ANEMIA SECONDARY TO BLOO 08/06/[address] MD, Ot D63.1 ANEMIA IN CHRONIC KIDNEY DISEASE 08/06/[address] MD, Ot D64.81 ANEMIA DUE TO ANTINEOPLASTIC CHEMOTHERAP 08/06/[address] MD, Ot I25.10 ATHSCL HEART DISEASE OF [place] CORONARY 08/06/[address] MD, Ot K21.0 GASTRO-ESOPHAGEAL REFLUX DISEASE WITH ES 08/06/[address] MD, Ot K44.9 DIAPHRAGMATIC HERNIA WITHOUT OBSTRUCTION 08/06/[address] MD, Ot N18.9 CHRONIC KIDNEY DISEASE, UNSPECIFIED 08/06/[address] MD, Ot Z79.02 EDUCATIONAL TECHNOLOGY COORDINATOR (CURRENT) USE OF ANTITHROMBOTI 08/06/[address] MD, Ot Z79.82 EDUCATIONAL TECHNOLOGY COORDINATOR (CURRENT) USE OF ASPIRIN 08/06/[address] MD, Ot Z85.3 PERSONAL HISTORY OF MALIGNANT NEOPLASM O 08/06/[address] MD, Ot Z92.21 PERSONAL HISTORY OF ANTINEOPLASTIC CHEMO 08/06/[address] MD, Ot Z95.5 PRESENCE OF CORONARY ANGIOPLASTY IMPLANT 08/10/2017 XUN MD, ROSARIO-ARCELIA Ot C55 MALIGNANT NEOPLASM OF UTERUS, PART UNSPE 08/10/[address] MD, Ot C56.2 MALIGNANT NEOPLASM OF LEFT OVARY 08/10/[address] MD, Ot 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 08/10/[address] MD, Ot 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 08/10/[address] MD, Ot C79.89 SECONDARY MALIGNANT NEOPLASM OF OTHER SP 08/10/[address] MD, Ot D50.0 IRON DEFICIENCY ANEMIA SECONDARY TO BLOO 08/10/[address] MD, Ot D63.1 ANEMIA IN CHRONIC KIDNEY DISEASE 08/10/[address] MD, Ot D64.81 ANEMIA DUE TO ANTINEOPLASTIC CHEMOTHERAP 08/10/[address] MD, Ot I25.10 ATHSCL HEART DISEASE OF [place] CORONARY 08/10/[address] MD, Ot K21.0 GASTRO-ESOPHAGEAL REFLUX DISEASE WITH ES 08/10/[address] MD, Ot K44.9 DIAPHRAGMATIC HERNIA WITHOUT OBSTRUCTION 08/10/[address] MD, Ot N18.9 CHRONIC KIDNEY DISEASE, UNSPECIFIED 08/10/[address] MD, Ot Z79.02 [facility] (CURRENT) USE OF ANTITHROMBOTI 08/10/[address] MD, Ot Z79.82 EDUCATIONAL TECHNOLOGY COORDINATOR (CURRENT) USE OF ASPIRIN 08/10/[address] MD, Ot Z85.3 PERSONAL HISTORY OF MALIGNANT NEOPLASM O 08/10/[address] MD, Ot Z92.21 PERSONAL HISTORY OF ANTINEOPLASTIC CHEMO 08/10/[address] MD, Ot Z95.5 PRESENCE OF CORONARY ANGIOPLASTY IMPLANT 08/11/2017 ALFREDO CADENA Ot Z13.820 ENCOUNTER FOR SCREENING FOR OSTEOPOROSIS 08/11/2017 ALFREDO CADENA Ot M81.0 AGE-RELATED OSTEOPOROSIS W/O CURRENT PAT 08/25/2017 ALFREDO CADENA Ot M81.0 AGE-RELATED OSTEOPOROSIS W/O CURRENT PAT 08/25/2017 ALFREDO CADENA Ot M81.0 AGE-RELATED OSTEOPOROSIS W/O CURRENT PAT 09/16/2017 ALFREDO CADENA Ot M85.852 OT DISRD OF BONE DENSITY AND STRUCTURE, 09/16/2017 ALFREDO CADENA Ot M85.88 OT DISRD OF BONE DENSITY AND STRUCTURE, 09/16/2017 ALFREDO CADENA Ot Z13.820 ENCOUNTER FOR SCREENING FOR OSTEOPOROSIS 09/21/2017 Ot 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 09/21/2017 Ot 183.0 MALIGN NEOPL OVARY 09/21/2017 Ot V10.3 HX OF BREAST MALIGNANCY 09/21/2017 Ot V76.11 SCRN MAMMO- HIGH RISK PT, MALIGNANT NEOPL 09/21/2017 Ot 183.0 MALIGN NEOPL OVARY 09/21/2017 Ot 786.09 RESPIRATORY ABNORM NEC 09/21/2017 Ot 786.09 RESPIRATORY ABNORM NEC 09/21/2017 JAD LIU, DANA Ot 183.0 MALIGN NEOPL OVARY 09/21/2017 BHARAT LIU, FERNY Gordon Ot V72.84 EXAM PRE-OPERATIVE NOS 09/21/2017 BHARAT LIU, FERNY Gordon Ot V72.84 EXAM PRE-OPERATIVE NOS 09/21/2017 BHARAT LIU, FERNY Gordon Ot V72.84 EXAM PRE-OPERATIVE NOS 09/21/2017 JAD LIU, DANA Ot 721.0 CERVICAL SPONDYLOSIS 09/21/2017 JAD LIU, DANA Ot V76.12 OT SCREEN MAMMO-MALIGN NEOPLASM OF [place] 09/21/2017 BHARAT LIU, FERNY S Ot V72.84 EXAM PRE-OPERATIVE NOS 09/21/2017 FERNY NICHOLSON MD Ot V72.84 EXAM PRE-OPERATIVE NOS 09/21/2017 BHARAT LIU, FERNY S Ot V72.84 EXAM PRE-OPERATIVE NOS 09/21/2017 ALFREDO CADENA Ot 585.3 CHRONIC KIDNEY DISEASE, STAGE III (MODER 09/21/2017 ALFREDO CADENA Ot 793.5 NOSP (ABN) FINDINGS ON RADIOLOGICAL OT 09/21/2017 BHARAT LIU, FERNY Gordon Ot 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 09/21/2017 FERNY NICHOLSON MD Ot V72.84 EXAM PRE-OPERATIVE NOS 09/21/[address] MD Ot 174.9 MALIGN NEOPL BREAST NOS 09/21/[address] MD Ot V76.11 SCRN MAMMO-HIGH RISK PT, MALIGNANT NEOPL 09/21/[address] MD Ot 183.0 MALIGN NEOPL OVARY 09/21/2017 BAIMA, NALINI L SHEET METAL ERECTOR Ot 272.4 HYPERLIPIDEMIA NEC/NOS 09/21/2017 BAIMA, NALINI L SHEET METAL ERECTOR Ot 401.9 HYPERTENSION NOS 09/21/2017 BAIMA, NALINI L SHEET METAL ERECTOR Ot 414.9 CHR ISCHEMIC HRT DIS NOS 09/21/2017 BAIMA, NALINI L SHEET METAL ERECTOR Ot 437.9 CEREBROVASC DISEASE NOS 09/21/2017 BAIMA, NALINI L SHEET METAL ERECTOR Ot 272.4 HYPERLIPIDEMIA NEC/NOS 09/21/2017 BAIMA, NALINI L SHEET METAL ERECTOR Ot 401.9 HYPERTENSION NOS 09/21/2017 BAIMA, NALINI L SHEET METAL ERECTOR Ot 414.00 CORON ATHEROSCLER NOS TYPE VESSEL, NATIV 09/21/2017 BAIMA, NALINI L SHEET METAL ERECTOR Ot 437.9 CEREBROVASC DISEASE NOS 09/21/[address] MD Ot 174.9 MALIGN NEOPL BREAST NOS 09/21/[address] MD Ot 183.0 MALIGN NEOPL OVARY 09/21/2017 BHARAT LIU, FERNY S Ot 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 09/21/2017 BHARAT LIU FERNY S Ot V72.84 EXAM PRE-OPERATIVE NOS 09/21/[address] MD Ot C50.919 MALIGNANT NEOPLASM OF UNSP SITE OF UNSPE 09/21/[address] MD, Ot C56.9 MALIGNANT NEOPLASM OF UNSPECIFIED OVARY 09/21/[address] MD Ot T85.698A [facility] COMPL OF INTERNAL PROSTH DEV/GRFT, 09/21/2017 TEODORO HERNANDEZ DO Ot Z01.818 ENCOUNTER FOR OTHER PREPROCEDURAL EXAMIN 09/21/[address] MD, Ot C56.2 MALIGNANT NEOPLASM OF LEFT OVARY 09/21/[address] MD, Ot Z85.3 PERSONAL HISTORY OF MALIGNANT NEOPLASM O 09/21/[address] MD, Ot C50.919 MALIGNANT NEOPLASM OF UNSP SITE OF UNSPE 09/21/[address] MD, Ot C56.9 MALIGNANT NEOPLASM OF UNSPECIFIED OVARY 09/21/[address] MD, Ot Z12.31 ENCNTR SCREEN MAMMOGRAM FOR MALIGNANT NE 09/21/2017 JAD LIU, DANA Ot C56.1 MALIGNANT NEOPLASM OF RIGHT OVARY 09/21/2017 JAD LIU, DANA Ot N18.9 CHRONIC KIDNEY DISEASE, UNSPECIFIED 09/21/2017 PENALOZA DO ARIELLA D Ot C55 MALIGNANT NEOPLASM OF UTERUS, PART UNSPE 09/21/2017 PENALOZA DOYASHTT D Ot C56.2 MALIGNANT NEOPLASM OF LEFT OVARY 09/21/2017 CA DO, ARIELLA D Ot E78.5 HYPERLIPIDEMIA, UNSPECIFIED 09/21/2017 PENALOZA DO, ARIELLA D Ot G47.33 OBSTRUCTIVE SLEEP APNEA (ADULT) (PEDIATR 09/21/2017 PENALOZA DO, ARIELLA D Ot I12.9 HYPERTENSIVE CHRONIC KIDNEY DISEASE W ST 09/21/2017 CA DOYASHTT D Ot I25.10 ATHSCL HEART DISEASE OF [place] CORONARY 09/21/2017 CA DO, ARIELLA D Ot N18.2 CHRONIC KIDNEY DISEASE, STAGE 2 (MILD) 09/21/2017 CA DOYASHTT D Ot T82.514A BREAKDOWN (MECHANICAL) OF INFUSION PAT 09/21/2017 CA DO, ARIELLA D Ot Z79.02 EDUCATIONAL TECHNOLOGY COORDINATOR (CURRENT) USE OF ANTITHROMBOTI 09/21/2017 ARIELLA PENALOZA DO D Ot Z79.82 [facility] (CURRENT) USE OF ASPIRIN 09/21/2017 YASH PENALOZA DOTT D Ot Z85.3 PERSONAL HISTORY OF MALIGNANT NEOPLASM O 09/21/2017 CA DO ARIELLA D Ot C56.9 MALIGNANT NEOPLASM OF UNSPECIFIED OVARY 09/21/2017 CA DOYASHTT D Ot E78.5 HYPERLIPIDEMIA, UNSPECIFIED 09/21/2017 PENALOZA DO, ARIELLA D Ot G47.33 OBSTRUCTIVE SLEEP APNEA (ADULT) (PEDIATR 09/21/2017 CA DO, ARIELLA D Ot I12.9 HYPERTENSIVE CHRONIC KIDNEY DISEASE W ST 09/21/2017 CA DOYASHTT D Ot I25.10 ATHSCL HEART DISEASE OF [place] CORONARY 09/21/2017 PENALOZA DO, ARIELLA D Ot N18.2 CHRONIC KIDNEY DISEASE, STAGE 2 (MILD) 09/21/2017 PENALOZA DOYASHTT D Ot T82.514D BREAKDOWN (MECHANICAL) OF INFUSION PAT 09/21/2017 PENALOZA DO, ARIELLA D Ot Z79.02 EDUCATIONAL TECHNOLOGY COORDINATOR (CURRENT) USE OF ANTITHROMBOTI 09/21/2017 ARIELLA PENALOZA DO Ot Z79.82 [facility] (CURRENT) USE OF ASPIRIN 09/21/2017 ARIELLA PENALOZA DO Ot Z85.3 PERSONAL HISTORY OF MALIGNANT NEOPLASM O 09/21/[address] MD Ot C56.1 MALIGNANT NEOPLASM OF RIGHT OVARY 09/21/[address] MD Ot Z12.31 ENCNTR SCREEN MAMMOGRAM FOR MALIGNANT NE 09/21/2017 LAURA LIU FACC, ALI FACP CCDS Ot E66.09 OTHER OBESITY DUE TO EXCESS CALORIES 09/21/2017 LAURA LIU FACC, ALI FACP CCDS Ot E78.4 OTHER HYPERLIPIDEMIA 09/21/2017 LAURA LIU FACC, ALI FACP CCDS Ot G47.33 OBSTRUCTIVE SLEEP APNEA (ADULT) (PEDIATR 09/21/2017 LAURA LIU FACC, ALI FACP CCDS Ot I12.9 HYPERTENSIVE CHRONIC KIDNEY DISEASE W ST 09/21/2017 LAURA LIU FACC, ALI FACP CCDS Ot I25.10 ATHSCL HEART DISEASE OF [place] CORONARY 09/21/2017 LAURA LIU FACC, ALI FACP CCDS Ot I65.23 OCCLUSION AND STENOSIS OF [place] 09/21/2017 LAURA LIU FACC, ALI FACP CCDS Ot N18.2 CHRONIC KIDNEY DISEASE, STAGE 2 (MILD) 09/21/2017 LAURA LIU FACC, ALI FACP CCDS Ot R07.89 OTHER CHEST PAIN 09/21/2017 LAURA LIU FACC, ALI FACP CCDS Ot E66.09 OTHER OBESITY DUE TO EXCESS CALORIES 09/21/2017 LAURA LIU FACC, ALI FACP CCDS Ot E78.4 OTHER HYPERLIPIDEMIA 09/21/2017 LAURA LIU FACC, ALI FACP CCDS Ot G47.33 OBSTRUCTIVE SLEEP APNEA (ADULT) (PEDIATR 09/21/2017 LAURA LIU FACC, ALI FACP CCDS Ot I12.9 HYPERTENSIVE CHRONIC KIDNEY DISEASE W ST 09/21/2017 LAURA LIU FACC, ALI FACP CCDS Ot I25.10 ATHSCL HEART DISEASE OF [place] CORONARY 09/21/2017 LAURA LIU FACC, ALI FACP CCDS Ot I65.23 OCCLUSION AND STENOSIS OF [place] 09/21/2017 LAURA LIU FACC, ALI FACP CCDS Ot N18.2 CHRONIC KIDNEY DISEASE, STAGE 2 (MILD) 09/21/2017 LAURA LIU FAC, ALI FACP CCDS Ot R07.89 OTHER CHEST PAIN 09/21/[address] MD, Ot C55 MALIGNANT NEOPLASM OF UTERUS, PART UNSPE 09/21/[address] MD, Ot C56.2 MALIGNANT NEOPLASM OF LEFT OVARY 09/21/[address] MD, Ot 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 09/21/[address] MD, Ot 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 09/21/[address] MD, Ot C79.89 SECONDARY MALIGNANT NEOPLASM OF OTHER SP 09/21/[address] MD, Ot D50.0 IRON DEFICIENCY ANEMIA SECONDARY TO BLOO 09/21/[address] MD, Ot D63.1 ANEMIA IN CHRONIC KIDNEY DISEASE 09/21/[address] MD, Ot D64.81 ANEMIA DUE TO ANTINEOPLASTIC CHEMOTHERAP 09/21/[address] MD, Ot I25.10 ATHSCL HEART DISEASE OF [place] CORONARY 09/21/[address] MD, Ot K21.0 GASTRO-ESOPHAGEAL REFLUX DISEASE WITH ES 09/21/[address] MD, Ot K44.9 DIAPHRAGMATIC HERNIA WITHOUT OBSTRUCTION 09/21/[address] MD, Ot N18.9 CHRONIC KIDNEY DISEASE, UNSPECIFIED 09/21/[address] MD, Ot Z79.02 EDUCATIONAL TECHNOLOGY COORDINATOR (CURRENT) USE OF ANTITHROMBOTI 09/21/[address] MD, Ot Z79.82 [facility] (CURRENT) USE OF ASPIRIN 09/21/[address] MD, Ot Z85.3 PERSONAL HISTORY OF MALIGNANT NEOPLASM O 09/21/[address] MD, Ot Z92.21 PERSONAL HISTORY OF ANTINEOPLASTIC CHEMO 09/21/[address] MD, Ot Z95.5 PRESENCE OF CORONARY ANGIOPLASTY IMPLANT 09/21/2017 ALFREDO CADENA Ot M85.852 OT DISRD OF BONE DENSITY AND STRUCTURE, 09/21/2017 ALFREDO CADENA Ot M85.88 OTH DISRD OF BONE DENSITY AND STRUCTURE, 09/21/2017 ALFREDO CADENA Ot Z13.820 ENCOUNTER FOR SCREENING FOR OSTEOPOROSIS 09/24/2017 ALFREDO CADENA Ot M85.852 OT DISRD OF BONE DENSITY AND STRUCTURE, 09/24/2017 ALFREDO CADENA Ot M85.88 OT DISRD OF BONE DENSITY AND STRUCTURE, 09/24/2017 ALFREDO CADENA Ot Z13.820 ENCOUNTER FOR SCREENING FOR OSTEOPOROSIS 09/27/[address] MD, Ot 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 MALIGNANT NEOPLASM OF UTERUS, PART UNSPE 09/27/[address] MD, Ot C56.2 MALIGNANT NEOPLASM OF LEFT OVARY 09/27/[address] MD, Ot 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 09/27/[address] MD, Ot 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 09/27/[address] MD, Ot C79.89 SECONDARY MALIGNANT NEOPLASM OF OTHER SP 09/27/[address] MD, Ot D50.0 IRON DEFICIENCY ANEMIA SECONDARY TO BLOO 09/27/[address] MD, Ot D63.1 ANEMIA IN CHRONIC KIDNEY DISEASE 09/27/[address] MD, Ot D64.81 ANEMIA DUE TO ANTINEOPLASTIC CHEMOTHERAP 09/27/[address] MD, Ot I25.10 ATHSCL HEART DISEASE OF [place] CORONARY 09/27/[address] MD, Ot K21.0 GASTRO-ESOPHAGEAL REFLUX DISEASE WITH ES 09/27/[address] MD, Ot K44.9 DIAPHRAGMATIC HERNIA WITHOUT OBSTRUCTION 09/27/[address] MD, Ot N18.9 CHRONIC KIDNEY DISEASE, UNSPECIFIED 09/27/[address] MD, Ot Z79.02 EDUCATIONAL TECHNOLOGY COORDINATOR (CURRENT) USE OF ANTITHROMBOTI 09/27/[address] MD, Ot Z79.82 [facility] (CURRENT) USE OF ASPIRIN 09/27/[address] MD, Ot Z85.3 PERSONAL HISTORY OF MALIGNANT NEOPLASM O 09/27/[address] MD, Ot Z92.21 PERSONAL HISTORY OF ANTINEOPLASTIC CHEMO 09/27/[address] MD, Ot Z95.5 PRESENCE OF CORONARY ANGIOPLASTY IMPLANT 10/06/2017 Ot 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 10/06/2017 Ot 183.0 MALIGN NEOPL OVARY 10/06/2017 Ot V10.3 HX OF BREAST MALIGNANCY 10/06/2017 Ot V76.11 SCRN MAMMO- HIGH RISK PT, MALIGNANT NEOPL 10/06/2017 Ot 183.0 MALIGN NEOPL OVARY 10/06/2017 Ot 786.09 RESPIRATORY ABNORM NEC 10/06/2017 Ot 786.09 RESPIRATORY ABNORM NEC 10/06/2017 JAD LIU, DANA Ot 183.0 MALIGN NEOPL OVARY 10/06/2017 BHARAT LIU, FERNY S Ot V72.84 EXAM PRE-OPERATIVE NOS 10/06/2017 BHARAT LIU, FERNY S Ot V72.84 EXAM PRE-OPERATIVE NOS 10/06/2017 BHARAT LIU, FERNY S Ot V72.84 EXAM PRE-OPERATIVE NOS 10/06/[address] MD Ot 721.0 CERVICAL SPONDYLOSIS 10/06/[address] MD Ot V76.12 OTH SCREEN MAMMO-MALIGN NEOPLASM OF [place] 10/06/2017 BHARAT LIU, FERNY S Ot V72.84 EXAM PRE-OPERATIVE NOS 10/06/2017 BHARAT LIU, FERNY S Ot V72.84 EXAM PRE-OPERATIVE NOS 10/06/2017 BHARAT LIU, FERNY S Ot V72.84 EXAM PRE-OPERATIVE NOS 10/06/2017 ALFREDO CADENA Ot 585.3 CHRONIC KIDNEY DISEASE, STAGE III (MODER 10/06/2017 ALFREDO CADENA Ot 793.5 NOSP (ABN) FINDINGS ON RADIOLOGICAL OT 10/06/2017 FERNY NICHOLSON MD S Ot 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 10/06/2017 FERNY NICHOLSON MD S Ot V72.84 EXAM PRE-OPERATIVE NOS 10/06/[address] MD Ot 174.9 MALIGN NEOPL BREAST NOS 10/06/[address] MD Ot V76.11 SCRN MAMMO-HIGH RISK PT, MALIGNANT NEOPL 10/06/[address] MD Ot 183.0 MALIGN NEOPL OVARY 10/06/2017 NALINI SEBASTIAN SHEET METAL ERECTOR Ot 272.4 HYPERLIPIDEMIA NEC/NOS 10/06/2017 NALINI SEBASTIAN SHEET METAL ERECTOR Ot 401.9 HYPERTENSION NOS 10/06/2017 CORYNALINI HOLLIS SHEET METAL ERECTOR Ot 414.9 CHR ISCHEMIC HRT DIS NOS 10/06/2017 BAITELMA NALINI L SHEET METAL ERECTOR Ot 437.9 CEREBROVASC DISEASE NOS 10/06/2017 BAITELMA NALINI L SHEET METAL ERECTOR Ot 272.4 HYPERLIPIDEMIA NEC/NOS 10/06/2017 BAITELMA NALINI L SHEET METAL ERECTOR Ot 401.9 HYPERTENSION NOS 10/06/2017 BAIMA NALINI L SHEET METAL ERECTOR Ot 414.00 CORON ATHEROSCLER NOS TYPE VESSEL, NATIV 10/06/2017 BAIMA NALINI L SHEET METAL ERECTOR Ot 437.9 CEREBROVASC DISEASE NOS 10/06/[address] MD Ot 174.9 MALIGN NEOPL BREAST NOS 10/06/[address] MD Ot 183.0 MALIGN NEOPL OVARY 10/06/2017 BHARAT LIU, FERNY S Ot 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 10/06/2017 BHARAT LIU, FERNY S Ot V72.84 EXAM PRE-OPERATIVE NOS 10/06/[address] MD, Ot C50.919 MALIGNANT NEOPLASM OF UNSP SITE OF UNSPE 10/06/[address] MD, Ot C56.9 MALIGNANT NEOPLASM OF UNSPECIFIED OVARY 10/06/[address] MD Ot T85.698A [facility] COMPL OF INTERNAL PROSTH DEV/GRFT, 10/06/2017 TEODORO HERNANDEZ DO Ot Z01.818 ENCOUNTER FOR OTHER PREPROCEDURAL EXAMIN 10/06/[address] MD Ot C56.2 MALIGNANT NEOPLASM OF LEFT OVARY 10/06/[address] MD, Ot Z85.3 PERSONAL HISTORY OF MALIGNANT NEOPLASM O 10/06/[address] MD, Ot C50.919 MALIGNANT NEOPLASM OF UNSP SITE OF UNSPE 10/06/[address] MD, Ot C56.9 MALIGNANT NEOPLASM OF UNSPECIFIED OVARY 10/06/[address] MD, Ot Z12.31 ENCNTR SCREEN MAMMOGRAM FOR MALIGNANT NE 10/06/[address] MD, Ot C56.1 MALIGNANT NEOPLASM OF RIGHT OVARY 10/06/[address] MD Ot N18.9 CHRONIC KIDNEY DISEASE, UNSPECIFIED 10/06/2017 PENALOZA DO, ARIELLA D Ot C55 MALIGNANT NEOPLASM OF UTERUS, PART UNSPE 10/06/2017 PENALOAZ DO, ARIELLA D Ot C56.2 MALIGNANT NEOPLASM OF LEFT OVARY 10/06/2017 CA DO, ARIELLA D Ot E78.5 HYPERLIPIDEMIA, UNSPECIFIED 10/06/2017 PENALOZA DO, ARIELLA D Ot G47.33 OBSTRUCTIVE SLEEP APNEA (ADULT) (PEDIATR 10/06/2017 PENALOZA DO, ARIELLA D Ot I12.9 HYPERTENSIVE CHRONIC KIDNEY DISEASE W ST 10/06/2017 PENALOZA DO ARIELLA D Ot I25.10 ATHSCL HEART DISEASE OF [place] CORONARY 10/06/2017 PENALOZA DO, ARIELLA D Ot N18.2 CHRONIC KIDNEY DISEASE, STAGE 2 (MILD) 10/06/2017 PENALOZA DO ARIELLA D Ot T82.514A BREAKDOWN (MECHANICAL) OF INFUSION PAT 10/06/2017 PENALOZA DO, ARIELLA D Ot Z79.02 EDUCATIONAL TECHNOLOGY COORDINATOR (CURRENT) USE OF ANTITHROMBOTI 10/06/2017 PENALOZA DO ARIELLA D Ot Z79.82 EDUCATIONAL TECHNOLOGY COORDINATOR (CURRENT) USE OF ASPIRIN 10/06/2017 PENALOZA DO, ARIELLA D Ot Z85.3 PERSONAL HISTORY OF MALIGNANT NEOPLASM O 10/06/2017 CA DO, ARIELLA D Ot C56.9 MALIGNANT NEOPLASM OF UNSPECIFIED OVARY 10/06/2017 CA DOYASHTT D Ot E78.5 HYPERLIPIDEMIA, UNSPECIFIED 10/06/2017 PENALOZA DO, ARIELLA D Ot G47.33 OBSTRUCTIVE SLEEP APNEA (ADULT) (PEDIATR 10/06/2017 PENALOZA DOYASHTT D Ot I12.9 HYPERTENSIVE CHRONIC KIDNEY DISEASE W ST 10/06/2017 CA DOYASHTT D Ot I25.10 ATHSCL HEART DISEASE OF [place] CORONARY 10/06/2017 PENALOZA DO, ARIELLA D Ot N18.2 CHRONIC KIDNEY DISEASE, STAGE 2 (MILD) 10/06/2017 CA DOYASHTT D Ot T82.514D BREAKDOWN (MECHANICAL) OF INFUSION PAT 10/06/2017 PENALOZA DO ARIELLA D Ot Z79.02 EDUCATIONAL TECHNOLOGY COORDINATOR (CURRENT) USE OF ANTITHROMBOTI 10/06/2017 PENALOZA DO, ARIELLA D Ot Z79.82 EDUCATIONAL TECHNOLOGY COORDINATOR (CURRENT) USE OF ASPIRIN 10/06/2017 PENALOZA DO, ARIELLA D Ot Z85.3 PERSONAL HISTORY OF MALIGNANT NEOPLASM O 10/06/[address] MD Ot C56.1 MALIGNANT NEOPLASM OF RIGHT OVARY 10/06/[address] MD Ot Z12.31 ENCNTR SCREEN MAMMOGRAM FOR MALIGNANT NE 10/06/2017 LAURA LIU FACC, ALI FACP CCDS Ot E66.09 OTHER OBESITY DUE TO EXCESS CALORIES 10/06/2017 LAURA NYEC, ALI FACP CCDS Ot E78.4 OTHER HYPERLIPIDEMIA 10/06/2017 LAURA LIU FACC, ALI FACP CCDS Ot G47.33 OBSTRUCTIVE SLEEP APNEA (ADULT) (PEDIATR 10/06/2017 LAURA NYEC, ALI FACP CCDS Ot I12.9 HYPERTENSIVE CHRONIC KIDNEY DISEASE W ST 10/06/2017 LAURA LIU FACC, ALI FACP CCDS Ot I25.10 ATHSCL HEART DISEASE OF [place] CORONARY 10/06/2017 LAURA LIU FACC, ALI FACP CCDS Ot I65.23 OCCLUSION AND STENOSIS OF B[place]ATER[place] 10/06/2017 LAURA LIU FACC, ALI FACP CCDS Ot N18.2 CHRONIC KIDNEY DISEASE, STAGE 2 (MILD) 10/06/2017 LAURA LIU FACC, ALI FACP CCDS Ot R07.89 OTHER CHEST PAIN 10/06/2017 LAURA NYEC, ALI FACP CCDS Ot E66.09 OTHER OBESITY DUE TO EXCESS CALORIES 10/06/2017 LAURA NYEC, ALI FACP CCDS Ot E78.4 OTHER HYPERLIPIDEMIA 10/06/2017 LAURA NYEC, ALI FACP CCDS Ot G47.33 OBSTRUCTIVE SLEEP APNEA (ADULT) (PEDIATR 10/06/2017 LAURA NYEC, ALI FACP CCDS Ot I12.9 HYPERTENSIVE CHRONIC KIDNEY DISEASE W ST 10/06/2017 LAURA NYEC, ALI FACP CCDS Ot I25.10 ATHSCL HEART DISEASE OF [place] CORONARY 10/06/2017 LAURA NYEC, ALI FACP CCDS Ot I65.23 OCCLUSION AND STENOSIS OF [place] 10/06/2017 LAURA LIU FACC, ALI FACP CCDS Ot N18.2 CHRONIC KIDNEY DISEASE, STAGE 2 (MILD) 10/06/2017 LAURA LIU FACC, ALI FACP CCDS Ot R07.89 OTHER CHEST PAIN 10/06/2017 ALFREDO CADENA Ot M85.852 OT DISRD OF BONE DENSITY AND STRUCTURE, 10/06/2017 ALFREDO CADENA Ot M85.88 OT DISRD OF BONE DENSITY AND STRUCTURE, 10/06/2017 ALFREDO CADENA Ot Z13.820 ENCOUNTER FOR SCREENING FOR OSTEOPOROSIS 10/06/[address] MD, Ot C55 MALIGNANT NEOPLASM OF UTERUS, PART UNSPE 10/06/[address] MD, Ot C56.2 MALIGNANT NEOPLASM OF LEFT OVARY 10/06/[address] MD, Ot 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 10/06/[address] MD, Ot 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 10/06/[address] MD, Ot C79.89 SECONDARY MALIGNANT NEOPLASM OF OTHER SP 10/06/[address] MD, Ot D50.0 IRON DEFICIENCY ANEMIA SECONDARY TO BLOO 10/06/[address] MD, Ot D63.1 ANEMIA IN CHRONIC KIDNEY DISEASE 10/06/[address] MD, Ot D64.81 ANEMIA DUE TO ANTINEOPLASTIC CHEMOTHERAP 10/06/[address] MD, Ot I25.10 ATHSCL HEART DISEASE OF [place] CORONARY 10/06/[address] MD, Ot K21.0 GASTRO-ESOPHAGEAL REFLUX DISEASE WITH ES 10/06/[address] MD, Ot K44.9 DIAPHRAGMATIC HERNIA WITHOUT OBSTRUCTION 10/06/[address] MD, Ot N18.9 CHRONIC KIDNEY DISEASE, UNSPECIFIED 10/06/[address] MD, Ot Z79.02 EDUCATIONAL TECHNOLOGY COORDINATOR (CURRENT) USE OF ANTITHROMBOTI 10/06/[address] MD, Ot Z79.82 [facility] (CURRENT) USE OF ASPIRIN 10/06/[address] MD, Ot Z85.3 PERSONAL HISTORY OF MALIGNANT NEOPLASM O 10/06/[address] MD, Ot Z92.21 PERSONAL HISTORY OF ANTINEOPLASTIC CHEMO 10/06/[address] MD, Ot Z95.5 PRESENCE OF CORONARY ANGIOPLASTY IMPLANT 10/06/2017 CRISTY SILVER Ot E78.5 HYPERLIPIDEMIA, UNSPECIFIED 10/07/2017 CRISTY SILVER Ot D63.1 ANEMIA IN CHRONIC KIDNEY DISEASE 10/07/2017 NEW, CRISTY Ross 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-C Ot E46 UNSPECIFIED PROTEIN-CALORIE MALNUTRITION 10/07/2017 NEW, CRISTY Ross 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-C Ot E55.9 VITAMIN D DEFICIENCY, UNSPECIFIED 10/07/2017 NEW, CRISTY Ross 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-C Ot E78.5 HYPERLIPIDEMIA, UNSPECIFIED 10/07/2017 NEW, CRISTY Ross 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-C Ot E83.42 HYPOMAGNESEMIA 10/07/2017 NEW, CRISTY Ross 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-C Ot E87.2 ACIDOSIS 10/07/2017 NEW, CRISTY Ross 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-C Ot E87.3 ALKALOSIS 10/07/2017 NEW, CRISTY Ross 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-C Ot 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, W S 10/07/2017 NEW, CRISTY Ross 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-C Ot I70.1 ATHEROSCLEROSIS OF RENAL ARTERY 10/07/2017 NEW, CRISTY Ross 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-C Ot N18.4 CHRONIC KIDNEY DISEASE, STAGE 4 (SEVERE) 10/07/2017 NEW, CRISTY Ross 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-C Ot N25.81 SECONDARY HYPERPARATHYROIDISM OF RENAL O 10/07/2017 NEW, CRISTY Ross 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-C Ot R73.01 IMPAIRED FASTING GLUCOSE 10/07/2017 NEW, CRISTY Ross 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-C Ot R80.9 PROTEINURIA, UNSPECIFIED 10/27/2017 NEW, CRISTY Ross 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-C Ot D63.1 ANEMIA IN CHRONIC KIDNEY DISEASE 10/27/2017 NEW, CRISTY Ross NP-C Ot E46 UNSPECIFIED PROTEIN-CALORIE MALNUTRITION 10/27/2017 NEW, CRISTY Ross NP-C Ot E55.9 VITAMIN D DEFICIENCY, UNSPECIFIED 10/27/2017 NEW, CRISTY Ross NP-C Ot E78.5 HYPERLIPIDEMIA, UNSPECIFIED 10/27/2017 NEW, CRISTY Ross 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-C Ot E83.42 HYPOMAGNESEMIA 10/27/2017 NEW, CRISTY Ross 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-C Ot E87.2 ACIDOSIS 10/27/2017 NEW, CRISTY Ross 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-C Ot E87.3 ALKALOSIS 10/27/2017 NEW, CRISTY Ross 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-C Ot 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, W S 10/27/2017 NEW, CRISTY Ross 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-C Ot I70.1 ATHEROSCLEROSIS OF RENAL ARTERY 10/27/2017 NEW, CRISTY Ross 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-C Ot N18.4 CHRONIC KIDNEY DISEASE, STAGE 4 (SEVERE) 10/27/2017 NEW, CRISTY Ross 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-C Ot N25.81 SECONDARY HYPERPARATHYROIDISM OF RENAL O 10/27/2017 NEW, CRISTY Ross 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-C Ot R73.01 IMPAIRED FASTING GLUCOSE 10/27/2017 NEW, CRISTY Ross NP-C Ot R80.9 PROTEINURIA, UNSPECIFIED 11/15/2017 NEW, CRISTY Ross 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-C Ot D63.1 ANEMIA IN CHRONIC KIDNEY DISEASE 11/15/2017 NEW, CRISTY Ross 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-C Ot E46 UNSPECIFIED PROTEIN-CALORIE MALNUTRITION 11/15/2017 NEW, CRISTY Ross 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-C Ot E55.9 VITAMIN D DEFICIENCY, UNSPECIFIED 11/15/2017 NEW, CRISTY Ross 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-C Ot E78.5 HYPERLIPIDEMIA, UNSPECIFIED 11/15/2017 NEW, CRISTY Ross 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-C Ot E83.42 HYPOMAGNESEMIA 11/15/2017 NEW, CRISTY Ross 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-C Ot E87.2 ACIDOSIS 11/15/2017 NEW, CRISTY Ross 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-C Ot E87.3 ALKALOSIS 11/15/2017 NEW, CRISTY Ross 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-C Ot 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, W S 11/15/2017 NEW, CRISTY Ross 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-C Ot I70.1 ATHEROSCLEROSIS OF RENAL ARTERY 11/15/2017 NEW, CRISTY Ross 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-C Ot N18.4 CHRONIC KIDNEY DISEASE, STAGE 4 (SEVERE) 11/15/2017 NEW, CRISTY Ross NP-C Ot N25.81 SECONDARY HYPERPARATHYROIDISM OF RENAL O 11/15/2017 NEW, CRISTY Ross 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-C Ot R73.01 IMPAIRED FASTING GLUCOSE 11/15/2017 NEW, CRISTY Ross 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-C Ot R80.9 PROTEINURIA, UNSPECIFIED 12/22/2017 Ot V10.3 HX OF BREAST MALIGNANCY 12/22/2017 Ot V76.11 SCRN MAMMO- HIGH RISK PT, MALIGNANT NEOPL 12/22/2017 Ot 183.0 MALIGN NEOPL OVARY 12/22/2017 Ot 786.09 RESPIRATORY ABNORM NEC 12/22/2017 Ot 786.09 RESPIRATORY ABNORM NEC 12/22/2017 JAD LIU, DANA Ot 183.0 MALIGN NEOPL OVARY 12/22/2017 BHARAT LIU, FERNY S Ot V72.84 EXAM PRE-OPERATIVE NOS 12/22/2017 BHARAT LIU, FERNY S Ot V72.84 EXAM PRE-OPERATIVE NOS 12/22/2017 BHARAT LIU, FERNY S Ot V72.84 EXAM PRE-OPERATIVE NOS 12/22/2017 JAD LIU, DANA Ot 721.0 CERVICAL SPONDYLOSIS 12/22/2017 JAD LIU, DANA Ot V76.12 OTH SCREEN MAMMO-MALIGN NEOPLASM OF [place] 12/22/2017 BHARAT LIU, FERNY S Ot V72.84 EXAM PRE-OPERATIVE NOS 12/22/2017 BHARAT LIU, FERNY S Ot V72.84 EXAM PRE-OPERATIVE NOS 12/22/2017 BHARAT LIU, FERNY S Ot V72.84 EXAM PRE-OPERATIVE NOS 12/22/2017 MAGDALENA CHOW, ALFREDO Alvarado Ot 585.3 CHRONIC KIDNEY DISEASE, STAGE III (MODER 12/22/2017 ALFREDO CADENA Ot 793.5 NOSP (ABN) FINDINGS ON RADIOLOGICAL OT 12/22/2017 BHARAT LIU, FERNY S Ot 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 12/22/2017 BHARAT LIU, FERNY S Ot V72.84 EXAM PRE-OPERATIVE NOS 12/22/2017 JAD LIU, DANA Ot 174.9 MALIGN NEOPL BREAST NOS 12/22/2017 JAD LIU, DANA Ot V76.11 SCRN MAMMO-HIGH RISK PT, MALIGNANT NEOPL 12/22/[address] MD Ot 183.0 MALIGN NEOPL OVARY 12/22/2017 MARIYA SEBASTIANHER L SHEET METAL ERECTOR Ot 272.4 HYPERLIPIDEMIA NEC/NOS 12/22/2017 CORYMA NALINI L SHEET METAL ERECTOR Ot 401.9 HYPERTENSION NOS 12/22/2017 JAZ NALINI L SHEET METAL ERECTOR Ot 414.9 CHR ISCHEMIC HRT DIS NOS 12/22/2017 JAZ NALINI L SHEET METAL ERECTOR Ot 437.9 CEREBROVASC DISEASE NOS 12/22/2017 JAZ NALINI L SHEET METAL ERECTOR Ot 272.4 HYPERLIPIDEMIA NEC/NOS 12/22/2017 JAZ NALINI L SHEET METAL ERECTOR Ot 401.9 HYPERTENSION NOS 12/22/2017 JAZ NALINI L SHEET METAL ERECTOR Ot 414.00 CORON ATHEROSCLER NOS TYPE VESSEL, NATIV 12/22/2017 BAINALINI HOLLIS SHEET METAL ERECTOR Ot 437.9 CEREBROVASC DISEASE NOS 12/22/[address] MD Ot 174.9 MALIGN NEOPL BREAST NOS 12/22/[address] MD Ot 183.0 MALIGN NEOPL OVARY 12/22/2017 BHARAT LIU, FERNY Gordon Ot 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 12/22/2017 FERNY NICHOLSON MD Ot V72.84 EXAM PRE-OPERATIVE NOS 12/22/[address] MD Ot C50.919 MALIGNANT NEOPLASM OF UNSP SITE OF UNSPE 12/22/[address] MD, Ot C56.9 MALIGNANT NEOPLASM OF UNSPECIFIED OVARY 12/22/[address] MD Ot T85.698A [facility] COMPL OF INTERNAL PROSTH DEV/GRFT, 12/22/2017 TEODORO HERNADNEZ DO Ot Z01.818 ENCOUNTER FOR OTHER PREPROCEDURAL EXAMIN 12/22/[address] MD, Ot C56.2 MALIGNANT NEOPLASM OF LEFT OVARY 12/22/[address] MD Ot Z85.3 PERSONAL HISTORY OF MALIGNANT NEOPLASM O 12/22/[address] MD Ot C50.919 MALIGNANT NEOPLASM OF UNSP SITE OF UNSPE 12/22/[address] MD, Ot C56.9 MALIGNANT NEOPLASM OF UNSPECIFIED OVARY 12/22/[address] MD Ot Z12.31 ENCNTR SCREEN MAMMOGRAM FOR MALIGNANT NE 12/22/[address] MD Ot C56.1 MALIGNANT NEOPLASM OF RIGHT OVARY 12/22/[address] MD Ot N18.9 CHRONIC KIDNEY DISEASE, UNSPECIFIED 12/22/2017 ARIELLA PENALOZA DO Ot C55 MALIGNANT NEOPLASM OF UTERUS, PART UNSPE 12/22/2017 ARIELLA PENALOZA DO Ot C56.2 MALIGNANT NEOPLASM OF LEFT OVARY 12/22/2017 ARIELLA PENALOZA DO Ot E78.5 HYPERLIPIDEMIA, UNSPECIFIED 12/22/2017 ARIELLA PENALOZA DO Ot G47.33 OBSTRUCTIVE SLEEP APNEA (ADULT) (PEDIATR 12/22/2017 ARIELLA PENALOZA DO Ot I12.9 HYPERTENSIVE CHRONIC KIDNEY DISEASE W ST 12/22/2017 PENALOZA DO, ARIELLA D Ot I25.10 ATHSCL HEART DISEASE OF [place] CORONARY 12/22/2017 PENALOZA DO, ARIELLA D Ot N18.2 CHRONIC KIDNEY DISEASE, STAGE 2 (MILD) 12/22/2017 CA DO ARIELLA D Ot T82.514A BREAKDOWN (MECHANICAL) OF INFUSION PAT 12/22/2017 PENALOZA DO ARIELLA D Ot Z79.02 [facility] (CURRENT) USE OF ANTITHROMBOTI 12/22/2017 PENALOZA DO ARIELLA D Ot Z79.82 [facility] (CURRENT) USE OF ASPIRIN 12/22/2017 PENALOZA DO ARIELLA D Ot Z85.3 PERSONAL HISTORY OF MALIGNANT NEOPLASM O 12/22/2017 CA DO ARIELLA D Ot C56.9 MALIGNANT NEOPLASM OF UNSPECIFIED OVARY 12/22/2017 CA LARIOS ARIELLA D Ot E78.5 HYPERLIPIDEMIA, UNSPECIFIED 12/22/2017 PENALOZA DO ARIELLA D Ot G47.33 OBSTRUCTIVE SLEEP APNEA (ADULT) (PEDIATR 12/22/2017 CA DOYASHTT D Ot I12.9 HYPERTENSIVE CHRONIC KIDNEY DISEASE W ST 12/22/2017 CA DO ARIELLA D Ot I25.10 ATHSCL HEART DISEASE OF [place] CORONARY 12/22/2017 CA DO ARIELLA D Ot N18.2 CHRONIC KIDNEY DISEASE, STAGE 2 (MILD) 12/22/2017 ARIELLA PENALOZA DO D Ot T82.514D BREAKDOWN (MECHANICAL) OF INFUSION PAT 12/22/2017 PENALOZA DOYASHTT D Ot Z79.02 [facility] (CURRENT) USE OF ANTITHROMBOTI 12/22/2017 CA LARIOS ARIELLA D Ot Z79.82 EDUCATIONAL TECHNOLOGY COORDINATOR (CURRENT) USE OF ASPIRIN 12/22/2017 PENALOZA DO, ARIELLA D Ot Z85.3 PERSONAL HISTORY OF MALIGNANT NEOPLASM O 12/22/[address] MD Ot C56.1 MALIGNANT NEOPLASM OF RIGHT OVARY 12/22/[address] MD Ot Z12.31 ENCNTR SCREEN MAMMOGRAM FOR MALIGNANT NE 12/22/2017 LAURA LIU FACSherine, ALI FACP CCDS Ot E66.09 OTHER OBESITY DUE TO EXCESS CALORIES 12/22/2017 LAURA LIU FACC, ALI FACP CCDS Ot E78.4 OTHER HYPERLIPIDEMIA 12/22/2017 LAURA LIU FACC, ALI FACP CCDS Ot G47.33 OBSTRUCTIVE SLEEP APNEA (ADULT) (PEDIATR 12/22/2017 LAURA LIU FACC, ALI FACP CCDS Ot I12.9 HYPERTENSIVE CHRONIC KIDNEY DISEASE W ST 12/22/2017 LAURA MD FACC, ALI FACP CCDS Ot I25.10 ATHSCL HEART DISEASE OF [place] CORONARY 12/22/2017 LAURA LIU FACC, ALI FACP CCDS Ot I65.23 OCCLUSION AND STENOSIS OF BILATERAL REGAN 12/22/2017 LAURA MD FACC, ALI FACP CCDS Ot N18.2 CHRONIC KIDNEY DISEASE, STAGE 2 (MILD) 12/22/2017 LAURA LIU FACC, ALI FACP CCDS Ot R07.89 OTHER CHEST PAIN 12/22/2017 LAURA LIU FACC, ALI FACP CCDS Ot E66.09 OTHER OBESITY DUE TO EXCESS CALORIES 12/22/2017 LAURA LIU FACC, ALI FACP CCDS Ot E78.4 OTHER HYPERLIPIDEMIA 12/22/2017 LAURA LIU FACC, ALI FACP CCDS Ot G47.33 OBSTRUCTIVE SLEEP APNEA (ADULT) (PEDIATR 12/22/2017 LAURA LIU FACC, ALI FACP CCDS Ot I12.9 HYPERTENSIVE CHRONIC KIDNEY DISEASE W ST 12/22/2017 LAURA LIU FACC, ALI FACP CCDS Ot I25.10 ATHSCL HEART DISEASE OF [place] CORONARY 12/22/2017 LAURA LIU FACC, ALI FACP CCDS Ot I65.23 OCCLUSION AND STENOSIS OF BILATERAL [place] 12/22/2017 LAURA LIU FACC, ALI FACP CCDS Ot N18.2 CHRONIC KIDNEY DISEASE, STAGE 2 (MILD) 12/22/2017 LAURA LIU FACC, ALI FACP CCDS Ot R07.89 OTHER CHEST PAIN 12/22/2017 ALFREDO ACDENA Ot M85.852 OTH DISRD OF BONE DENSITY AND STRUCTURE, 12/22/2017 ALFREDO CADENA Ot M85.88 OTH DISRD OF BONE DENSITY AND STRUCTURE, 12/22/2017 AFLREDO CADENA Ot Z13.820 ENCOUNTER FOR SCREENING FOR OSTEOPOROSIS 12/22/[address] MD Ot Z12.31 ENCNTR SCREEN MAMMOGRAM FOR MALIGNANT NE 12/22/[address] MD Ot C55 MALIGNANT NEOPLASM OF UTERUS, PART UNSPE 12/22/[address] MD, Ot C56.2 MALIGNANT NEOPLASM OF LEFT OVARY 12/22/[address] MD, Ot 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 12/22/[address] MD, Ot 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 12/22/[address] MD, Ot C79.89 SECONDARY MALIGNANT NEOPLASM OF OTHER SP 12/22/[address] MD, Ot D50.0 IRON DEFICIENCY ANEMIA SECONDARY TO BLOO 12/22/[address] MD, Ot D63.1 ANEMIA IN CHRONIC KIDNEY DISEASE 12/22/[address] MD, Ot D64.81 ANEMIA DUE TO ANTINEOPLASTIC CHEMOTHERAP 12/22/[address] MD, Ot I25.10 ATHSCL HEART DISEASE OF [place] CORONARY 12/22/[address] MD, Ot K21.0 GASTRO-ESOPHAGEAL REFLUX DISEASE WITH ES 12/22/[address] MD, Ot K44.9 DIAPHRAGMATIC HERNIA WITHOUT OBSTRUCTION 12/22/[address] MD, Ot N18.9 CHRONIC KIDNEY DISEASE, UNSPECIFIED 12/22/[address] MD, Ot Z79.02 [facility] (CURRENT) USE OF ANTITHROMBOTI 12/22/[address] MD, Ot Z79.82 EDUCATIONAL TECHNOLOGY COORDINATOR (CURRENT) USE OF ASPIRIN 12/22/[address] MD, Ot Z85.3 PERSONAL HISTORY OF MALIGNANT NEOPLASM O 12/22/[address] MD, Ot Z92.21 PERSONAL HISTORY OF ANTINEOPLASTIC CHEMO 12/22/[address] MD Ot Z95.5 PRESENCE OF CORONARY ANGIOPLASTY IMPLANT 12/22/2017 CRISTY SILVER NP-Sherine Ot D63.1 ANEMIA IN CHRONIC KIDNEY DISEASE 12/22/2017 CRISTY SILVER NP-Sherine Ot E46 UNSPECIFIED PROTEIN-CALORIE MALNUTRITION 12/22/2017 CRISTY SILVER NP-Sherine Ot E55.9 VITAMIN D DEFICIENCY, UNSPECIFIED 12/22/2017 CRISTY SILVER NP-C Ot E78.5 HYPERLIPIDEMIA, UNSPECIFIED 12/22/2017 CRISTY SILVER NP-C Ot E83.42 HYPOMAGNESEMIA 12/22/2017 NEW, CRISTY G. 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, W S 12/22/2017 NEW, CRISTY Ross NP-C Ot I70.1 ATHEROSCLEROSIS OF RENAL ARTERY 12/22/2017 NEW, CRISTY Ross 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-C Ot N18.4 CHRONIC KIDNEY DISEASE, STAGE 4 (SEVERE) 12/22/2017 NEW, CRISTY Ross 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-C Ot N25.81 SECONDARY HYPERPARATHYROIDISM OF RENAL O 12/22/2017 NEW, CRISTY Ross 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-C Ot R73.01 IMPAIRED FASTING GLUCOSE 12/22/2017 NEW, CRISTY Ross 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-C Ot R80.9 PROTEINURIA, UNSPECIFIED 12/23/[address] MD Ot R92.0 MAMMOGRAPHIC MICROCALCIFICATION FOUND ON 12/23/[address] MD Ot Z12.31 ENCNTR SCREEN MAMMOGRAM FOR MALIGNANT NE 01/03/2018 Ot V10.3 HX OF BREAST MALIGNANCY 01/03/2018 Ot V76.11 SCRN MAMMO- HIGH RISK PT, MALIGNANT NEOPL 01/03/2018 Ot 183.0 MALIGN NEOPL OVARY 01/03/2018 Ot 786.09 RESPIRATORY ABNORM NEC 01/03/2018 Ot 786.09 RESPIRATORY ABNORM NEC 01/03/[address] MD Ot 183.0 MALIGN NEOPL OVARY 01/03/2018 FERNY NICHOLSON MD Ot V72.84 EXAM PRE-OPERATIVE NOS 01/03/2018 FERNY NICHOLSON MD Ot V72.84 EXAM PRE-OPERATIVE NOS 01/03/2018 FERNY NICHOLSON MD Ot V72.84 EXAM PRE-OPERATIVE NOS 01/03/[address] MD Ot 721.0 CERVICAL SPONDYLOSIS 01/03/[address] MD Ot V76.12 OTH SCREEN MAMMO-MALIGN NEOPLASM OF [place] 01/03/2018 FERNY NICHOLSON MD Ot V72.84 EXAM PRE-OPERATIVE NOS 01/03/2018 FERNY NICHOLSON MD Ot V72.84 EXAM PRE-OPERATIVE NOS 01/03/2018 FERNY NICHOLSON MD Ot V72.84 EXAM PRE-OPERATIVE NOS 01/03/2018 ALFREDO CADENA Ot 585.3 CHRONIC KIDNEY DISEASE, STAGE III (MODER 01/03/2018 ALFREDO CADENA Ot 793.5 NOSP (ABN) FINDINGS ON RADIOLOGICAL OT 01/03/2018 FERNY NICHOLSON MD Ot 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 01/03/2018 FERNY NICHOLSON MD Ot V72.84 EXAM PRE-OPERATIVE NOS 01/03/[address] MD Ot 174.9 MALIGN NEOPL BREAST NOS 01/03/[address] MD Ot V76.11 SCRN MAMMO-HIGH RISK PT, MALIGNANT NEOPL 01/03/[address] MD Ot 183.0 MALIGN NEOPL OVARY 01/03/2018 BAIMA, NALINI L SHEET METAL ERECTOR Ot 272.4 HYPERLIPIDEMIA NEC/NOS 01/03/2018 CORYMA, NALINI L SHEET METAL ERECTOR Ot 401.9 HYPERTENSION NOS 01/03/2018 CORYMA, NALINI L SHEET METAL ERECTOR Ot 414.9 CHR ISCHEMIC HRT DIS NOS 01/03/2018 BAIMA, NALINI L SHEET METAL ERECTOR Ot 437.9 CEREBROVASC DISEASE NOS 01/03/2018 BAIMA, NALINI L SHEET METAL ERECTOR Ot 272.4 HYPERLIPIDEMIA NEC/NOS 01/03/2018 CORYMA, NALINI L SHEET METAL ERECTOR Ot 401.9 HYPERTENSION NOS 01/03/2018 BAIMA, NALINI L SHEET METAL ERECTOR Ot 414.00 CORON ATHEROSCLER NOS TYPE VESSEL, NATIV 01/03/2018 JAZ, NALINI L SHEET METAL ERECTOR Ot 437.9 CEREBROVASC DISEASE NOS 01/03/[address] MD Ot 174.9 MALIGN NEOPL BREAST NOS 01/03/[address] MD Ot 183.0 MALIGN NEOPL OVARY 01/03/2018 FERNY NICHOLSON MD S Ot 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 01/03/2018 FERNY NICHOLSON MD Ot V72.84 EXAM PRE-OPERATIVE NOS 01/03/[address] MD Ot C50.919 MALIGNANT NEOPLASM OF UNSP SITE OF UNSPE 01/03/[address] MD Ot C56.9 MALIGNANT NEOPLASM OF UNSPECIFIED OVARY 01/03/[address] MD Ot T85.698A [facility] COMPL OF INTERNAL PROSTH DEV/GRFT, 01/03/2018 TEODORO HERNANDEZ DO Ot Z01.818 ENCOUNTER FOR OTHER PREPROCEDURAL EXAMIN 01/03/[address] MD, Ot C56.2 MALIGNANT NEOPLASM OF LEFT OVARY 01/03/[address] MD Ot Z85.3 PERSONAL HISTORY OF MALIGNANT NEOPLASM O 01/03/[address] MD Ot C50.919 MALIGNANT NEOPLASM OF UNSP SITE OF UNSPE 01/03/[address] MD, Ot C56.9 MALIGNANT NEOPLASM OF UNSPECIFIED OVARY 01/03/[address] MD Ot Z12.31 ENCNTR SCREEN MAMMOGRAM FOR MALIGNANT NE 01/03/[address] MD, Ot C56.1 MALIGNANT NEOPLASM OF RIGHT OVARY 01/03/[address] MD, Ot N18.9 CHRONIC KIDNEY DISEASE, UNSPECIFIED 01/03/2018 ARIELLA PENALOZA DO Ot 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 MALIGNANT NEOPLASM OF UTERUS, PART UNSPE 01/03/2018 ARIELLA PENALOZA DO Ot C56.2 MALIGNANT NEOPLASM OF LEFT OVARY 01/03/2018 ARIELLA PENALOZA DO Ot E78.5 HYPERLIPIDEMIA, UNSPECIFIED 01/03/2018 ARIELLA PENALOZA DO Ot G47.33 OBSTRUCTIVE SLEEP APNEA (ADULT) (PEDIATR 01/03/2018 ARIELLA PENALOZA DO Ot I12.9 HYPERTENSIVE CHRONIC KIDNEY DISEASE W ST 01/03/2018 ARIELLA PENALOZA DO Ot I25.10 ATHSCL HEART DISEASE OF [place] CORONARY 01/03/2018 ARIELLA PENALOZA DO Ot N18.2 CHRONIC KIDNEY DISEASE, STAGE 2 (MILD) 01/03/2018 ARIELLA PENALOZA DO Ot T82.514A BREAKDOWN (MECHANICAL) OF INFUSION PAT 01/03/2018 ARIELLA PENALOZA DO Ot Z79.02 [facility] (CURRENT) USE OF ANTITHROMBOTI 01/03/2018 ARIELLA PENALOZA DO Ot Z79.82 [facility] (CURRENT) USE OF ASPIRIN 01/03/2018 ARIELLA PENALOZA DO Ot Z85.3 PERSONAL HISTORY OF MALIGNANT NEOPLASM O 01/03/2018 ARIELLA PENALOZA DO Ot C56.9 MALIGNANT NEOPLASM OF UNSPECIFIED OVARY 01/03/2018 ARIELLA PENALOZA DO Ot E78.5 HYPERLIPIDEMIA, UNSPECIFIED 01/03/2018 ARIELLA PENALOZA DO Ot G47.33 OBSTRUCTIVE SLEEP APNEA (ADULT) (PEDIATR 01/03/2018 ARIELLA PENALOZA DO Ot I12.9 HYPERTENSIVE CHRONIC KIDNEY DISEASE W ST 01/03/2018 ARIELLA PENALOZA DO Ot I25.10 ATHSCL HEART DISEASE OF [place] CORONARY 01/03/2018 YASH PENALOZA DOTT Norm Ot N18.2 CHRONIC KIDNEY DISEASE, STAGE 2 (MILD) 01/03/2018 ARIELLA PENALOZA DO Ot T82.514D BREAKDOWN (MECHANICAL) OF INFUSION PAT 01/03/2018 ARIELLA PENALOZA DO Ot Z79.02 EDUCATIONAL TECHNOLOGY COORDINATOR (CURRENT) USE OF ANTITHROMBOTI 01/03/2018 ARIELLA PENALOZA DO Ot Z79.82 [facility] (CURRENT) USE OF ASPIRIN 01/03/2018 ARIELLA PENALOZA DO Ot Z85.3 PERSONAL HISTORY OF MALIGNANT NEOPLASM O 01/03/2018 JAD LIU, DANA Ot C56.1 MALIGNANT NEOPLASM OF RIGHT OVARY 01/03/[address] MD Ot Z12.31 ENCNTR SCREEN MAMMOGRAM FOR MALIGNANT NE 01/03/2018 LAURA LIU FACC, MILKA FACP CCDS Ot E66.09 OTHER OBESITY DUE TO EXCESS CALORIES 01/03/2018 LAURA LIU FACC, ALI FACP CCDS Ot E78.4 OTHER HYPERLIPIDEMIA 01/03/2018 LAURA LIU FACC, MILKA FACP CCDS Ot G47.33 OBSTRUCTIVE SLEEP APNEA (ADULT) (PEDIATR 01/03/2018 LAURA LIU FACC, ALI FACP CCDS Ot I12.9 HYPERTENSIVE CHRONIC KIDNEY DISEASE W ST 01/03/2018 LAURA LIU FACC, ALI FACP CCDS Ot I25.10 ATHSCL HEART DISEASE OF [place] CORONARY 01/03/2018 LAURA LIU FACC, ALI FACP CCDS Ot I65.23 OCCLUSION AND STENOSIS OF BILATERAL [place] 01/03/2018 LAURA LIU FACC, ALI FACP CCDS Ot N18.2 CHRONIC KIDNEY DISEASE, STAGE 2 (MILD) 01/03/2018 LAURA LIU FACC, ALI FACP CCDS Ot R07.89 OTHER CHEST PAIN 01/03/2018 LAURA LIU FACC, ALI FACP CCDS Ot E66.09 OTHER OBESITY DUE TO EXCESS CALORIES 01/03/2018 LAURA LIU FACC, MILKA NYEP CCDS Ot E78.4 OTHER HYPERLIPIDEMIA 01/03/2018 LAURA LIU FACC, MILKA FACP CCDS Ot G47.33 OBSTRUCTIVE SLEEP APNEA (ADULT) (PEDIATR 01/03/2018 LAURA LIU FACC, ALI FACP CCDS Ot I12.9 HYPERTENSIVE CHRONIC KIDNEY DISEASE W ST 01/03/2018 LAURA LIU FACC, ALI FACP CCDS Ot I25.10 ATHSCL HEART DISEASE OF [place] CORONARY 01/03/2018 LAURA LIU FACC, MILKA FACP CCDS Ot I65.23 OCCLUSION AND STENOSIS OF BILATERAL [place] 01/03/2018 LAURA LIU FACC, MILKA FACP CCDS Ot N18.2 CHRONIC KIDNEY DISEASE, STAGE 2 (MILD) 01/03/2018 LAURA LIU FACC, MILKA FACP CCDS Ot R07.89 OTHER CHEST PAIN 01/03/2018 ALFREDO CADENA Ot M85.852 OT DISRD OF BONE DENSITY AND STRUCTURE, 01/03/2018 ALFREDO CADENA Ot M85.88 OTH DISRD OF BONE DENSITY AND STRUCTURE, 01/03/2018 ALFREDO CADENA Ot Z13.820 ENCOUNTER FOR SCREENING FOR OSTEOPOROSIS 01/03/[address] MD Ot R92.0 MAMMOGRAPHIC MICROCALCIFICATION FOUND ON 01/03/[address] MD Ot Z12.31 ENCNTR SCREEN MAMMOGRAM FOR MALIGNANT NE 01/03/2018 CRISTY SILVER NP-C Ot D63.1 ANEMIA IN CHRONIC KIDNEY DISEASE 01/03/2018 CRISTY SILVER NP-C Ot E46 UNSPECIFIED PROTEIN-CALORIE MALNUTRITION 01/03/2018 CRISTY SILVER NP-C Ot E55.9 VITAMIN D DEFICIENCY, UNSPECIFIED 01/03/2018 CRISTY SILVER NP-C Ot E78.5 HYPERLIPIDEMIA, UNSPECIFIED 01/03/2018 CRISTY SILVER NP-C Ot E83.42 HYPOMAGNESEMIA 01/03/2018 CRISTY SILVER NP-C Ot E87.2 ACIDOSIS 01/03/2018 CRISTY SILVER 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-C Ot E87.3 ALKALOSIS 01/03/2018 CRISTY SILVER 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-C Ot 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, W S 01/03/2018 CRISTY SILVER Ot I70.1 ATHEROSCLEROSIS OF RENAL ARTERY 01/03/2018 CRISTY SILVER Ot N18.4 CHRONIC KIDNEY DISEASE, STAGE 4 (SEVERE) 01/03/2018 CRISTY SILVER Ot N25.81 SECONDARY HYPERPARATHYROIDISM OF RENAL O 01/03/2018 CRISTY SILVER Ot R73.01 IMPAIRED FASTING GLUCOSE 01/03/2018 CRISTY SILVER Ot R80.9 PROTEINURIA, UNSPECIFIED 01/07/[address] MD, Ot C55 MALIGNANT NEOPLASM OF UTERUS, PART UNSPE 01/07/[address] MD, Ot C56.2 MALIGNANT NEOPLASM OF LEFT OVARY 01/07/[address] MD, Ot 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 01/07/[address] MD, Ot 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 01/07/[address] MD, Ot C79.89 SECONDARY MALIGNANT NEOPLASM OF OTHER SP 01/07/[address] MD, Ot D50.0 IRON DEFICIENCY ANEMIA SECONDARY TO BLOO 01/07/[address] MD, Ot D63.1 ANEMIA IN CHRONIC KIDNEY DISEASE 01/07/[address] MD, Ot D64.81 ANEMIA DUE TO ANTINEOPLASTIC CHEMOTHERAP 01/07/[address] MD, Ot I25.10 ATHSCL HEART DISEASE OF [place] CORONARY 01/07/[address] MD, Ot K21.0 GASTRO-ESOPHAGEAL REFLUX DISEASE WITH ES 01/07/[address] MD, Ot K44.9 DIAPHRAGMATIC HERNIA WITHOUT OBSTRUCTION 01/07/[address] MD, Ot N18.9 CHRONIC KIDNEY DISEASE, UNSPECIFIED 01/07/[address] MD, Ot Z79.02 EDUCATIONAL TECHNOLOGY COORDINATOR (CURRENT) USE OF ANTITHROMBOTI 01/07/[address] MD, Ot Z79.82 [facility] (CURRENT) USE OF ASPIRIN 01/07/[address] MD, Ot Z85.3 PERSONAL HISTORY OF MALIGNANT NEOPLASM O 01/07/[address] MD, Ot Z92.21 PERSONAL HISTORY OF ANTINEOPLASTIC CHEMO 01/07/2018 JAD LIU, DANA Ot Z95.5 PRESENCE OF CORONARY ANGIOPLASTY IMPLANT 01/11/[address] MD Ot R92.0 MAMMOGRAPHIC MICROCALCIFICATION FOUND ON 01/11/[address] MD Ot Z12.31 ENCNTR SCREEN MAMMOGRAM FOR MALIGNANT NE 01/13/2018 Ot V10.3 HX OF BREAST MALIGNANCY 01/13/2018 Ot V76.11 SCRN MAMMO- HIGH RISK PT, MALIGNANT NEOPL 01/13/2018 Ot 183.0 MALIGN NEOPL OVARY 01/13/2018 Ot 786.09 RESPIRATORY ABNORM NEC 01/13/2018 Ot 786.09 RESPIRATORY ABNORM NEC 01/13/[address] MD Ot 183.0 MALIGN NEOPL OVARY 01/13/2018 BHARAT LIU, FERNY Gordon Ot V72.84 EXAM PRE-OPERATIVE NOS 01/13/2018 BHARAT LIU, FERNY Gordon Ot V72.84 EXAM PRE-OPERATIVE NOS 01/13/2018 FERNY NICHOLSON MD Ot V72.84 EXAM PRE-OPERATIVE NOS 01/13/[address] MD Ot 721.0 CERVICAL SPONDYLOSIS 01/13/[address] MD Ot V76.12 OTH SCREEN MAMMO-MALIGN NEOPLASM OF J[place]GE [place] 01/13/2018 BHARAT LIU, FERNY Gordon Ot V72.84 EXAM PRE-OPERATIVE NOS 01/13/2018 FERNY NICHOLSON MD Ot V72.84 EXAM PRE-OPERATIVE NOS 01/13/2018 FERNY NICHOLSON MD Ot V72.84 EXAM PRE-OPERATIVE NOS 01/13/2018 ALFREDO CADENA Ot 585.3 CHRONIC KIDNEY DISEASE, STAGE III (MODER 01/13/2018 ALFREDO CADENA Ot 793.5 NOSP (ABN) FINDINGS ON RADIOLOGICAL OT 01/13/2018 FERNY NICHOLSON MD Ot 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 01/13/2018 FERNY NICHOLSON MD Ot V72.84 EXAM PRE-OPERATIVE NOS 01/13/[address] MD Ot 174.9 MALIGN NEOPL BREAST NOS 01/13/[address] MD Ot V76.11 SCRN MAMMO-HIGH RISK PT, MALIGNANT NEOPL 01/13/[address] MD Ot 183.0 MALIGN NEOPL OVARY 01/13/2018 BAIMA, NALINI L SHEET METAL ERECTOR Ot 272.4 HYPERLIPIDEMIA NEC/NOS 01/13/2018 BAIMA, NALINI L SHEET METAL ERECTOR Ot 401.9 HYPERTENSION NOS 01/13/2018 BAIMA, NALINI L SHEET METAL ERECTOR Ot 414.9 CHR ISCHEMIC HRT DIS NOS 01/13/2018 BAIMA, NALINI L SHEET METAL ERECTOR Ot 437.9 CEREBROVASC DISEASE NOS 01/13/2018 BAIMA, NALINI L SHEET METAL ERECTOR Ot 272.4 HYPERLIPIDEMIA NEC/NOS 01/13/2018 BAIMA, NALINI L SHEET METAL ERECTOR Ot 401.9 HYPERTENSION NOS 01/13/2018 BAIMA, NALINI L SHEET METAL ERECTOR Ot 414.00 CORON ATHEROSCLER NOS TYPE VESSEL, NATIV 01/13/2018 BAIMA, NALINI L SHEET METAL ERECTOR Ot 437.9 CEREBROVASC DISEASE NOS 01/13/[address] MD Ot 174.9 MALIGN NEOPL BREAST NOS 01/13/[address] MD Ot 183.0 MALIGN NEOPL OVARY 01/13/2018 FERNY NICHOLSON MD S Ot 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 01/13/2018 FERNY NICHOLSON MD S Ot V72.84 EXAM PRE-OPERATIVE NOS 01/13/[address] MD Ot C50.919 MALIGNANT NEOPLASM OF UNSP SITE OF UNSPE 01/13/[address] MD, Ot C56.9 MALIGNANT NEOPLASM OF UNSPECIFIED OVARY 01/13/[address] MD, Ot T85.698A [facility] COMPL OF INTERNAL PROSTH DEV/GRFT, 01/13/2018 TEODORO HERNANDEZ DO Ot Z01.818 ENCOUNTER FOR OTHER PREPROCEDURAL EXAMIN 01/13/[address] MD Ot C56.2 MALIGNANT NEOPLASM OF LEFT OVARY 01/13/[address] MD Ot Z85.3 PERSONAL HISTORY OF MALIGNANT NEOPLASM O 01/13/[address] MD Ot C50.919 MALIGNANT NEOPLASM OF UNSP SITE OF UNSPE 01/13/[address] MD, Ot C56.9 MALIGNANT NEOPLASM OF UNSPECIFIED OVARY 01/13/[address] MD, Ot Z12.31 ENCNTR SCREEN MAMMOGRAM FOR MALIGNANT NE 01/13/[address] MD Ot C56.1 MALIGNANT NEOPLASM OF RIGHT OVARY 01/13/[address] MD Ot N18.9 CHRONIC KIDNEY DISEASE, UNSPECIFIED 01/13/2018 PENALOZA DO ARIELLA D Ot C55 MALIGNANT NEOPLASM OF UTERUS, PART UNSPE 01/13/2018 PENALOZA DO ARIELLA D Ot C56.2 MALIGNANT NEOPLASM OF LEFT OVARY 01/13/2018 PENALOZA DO, ARIELLA D Ot E78.5 HYPERLIPIDEMIA, UNSPECIFIED 01/13/2018 PENALOZA DO, ARIELLA D Ot G47.33 OBSTRUCTIVE SLEEP APNEA (ADULT) (PEDIATR 01/13/2018 PENALOZA DO, ARIELLA D Ot I12.9 HYPERTENSIVE CHRONIC KIDNEY DISEASE W ST 01/13/2018 PENALOZA DO, ARIELLA D Ot I25.10 ATHSCL HEART DISEASE OF [place] CORONARY 01/13/2018 PENALOZA DO, ARIELLA D Ot N18.2 CHRONIC KIDNEY DISEASE, STAGE 2 (MILD) 01/13/2018 CA DO ARIELLA D Ot T82.514A BREAKDOWN (MECHANICAL) OF INFUSION PAT 01/13/2018 PENALOZA DO, ARIELLA D Ot Z79.02 [facility] (CURRENT) USE OF ANTITHROMBOTI 01/13/2018 PENALOZA DO, ARIELLA D Ot Z79.82 EDUCATIONAL TECHNOLOGY COORDINATOR (CURRENT) USE OF ASPIRIN 01/13/2018 CA DOYASHTT D Ot Z85.3 PERSONAL HISTORY OF MALIGNANT NEOPLASM O 01/13/2018 PENALOZA DOYASHTT D Ot C56.9 MALIGNANT NEOPLASM OF UNSPECIFIED OVARY 01/13/2018 CA DOYASHTT D Ot E78.5 HYPERLIPIDEMIA, UNSPECIFIED 01/13/2018 PENALOZA DO, ARIELLA D Ot G47.33 OBSTRUCTIVE SLEEP APNEA (ADULT) (PEDIATR 01/13/2018 PENALOZA DO, ARIELLA D Ot I12.9 HYPERTENSIVE CHRONIC KIDNEY DISEASE W ST 01/13/2018 PENALOZA DO, ARIELLA D Ot I25.10 ATHSCL HEART DISEASE OF [place] CORONARY 01/13/2018 PENALOZA DO, ARIELLA D Ot N18.2 CHRONIC KIDNEY DISEASE, STAGE 2 (MILD) 01/13/2018 PENALOZA DO, ARIELLA D Ot T82.514D BREAKDOWN (MECHANICAL) OF INFUSION PAT 01/13/2018 PENALOZA DO, ARIELLA D Ot Z79.02 EDUCATIONAL TECHNOLOGY COORDINATOR (CURRENT) USE OF ANTITHROMBOTI 01/13/2018 ARIELLA PENALOZA DO Ot Z79.82 [facility] (CURRENT) USE OF ASPIRIN 01/13/2018 ARIELLA PENALOZA DO Ot Z85.3 PERSONAL HISTORY OF MALIGNANT NEOPLASM O 01/13/2018 JAD LIU, DANA Ot C56.1 MALIGNANT NEOPLASM OF RIGHT OVARY 01/13/[address] MD Ot Z12.31 ENCNTR SCREEN MAMMOGRAM FOR MALIGNANT NE 01/13/2018 LAURA LIU FACC, ALI FACP CCDS Ot E66.09 OTHER OBESITY DUE TO EXCESS CALORIES 01/13/2018 LAURA LIU FACC, ALI FACP CCDS Ot E78.4 OTHER HYPERLIPIDEMIA 01/13/2018 LAURA LIU FACC, ALI FACP CCDS Ot G47.33 OBSTRUCTIVE SLEEP APNEA (ADULT) (PEDIATR 01/13/2018 LAURA NYEC, ALI FACP CCDS Ot I12.9 HYPERTENSIVE CHRONIC KIDNEY DISEASE W ST 01/13/2018 LAURA LIU FACC, ALI FACP CCDS Ot I25.10 ATHSCL HEART DISEASE OF [place] CORONARY 01/13/2018 LAURA NYEC, ALI FACP CCDS Ot I65.23 OCCLUSION AND STENOSIS OF [place] 01/13/2018 LAURA NYEC, ALI FACP CCDS Ot N18.2 CHRONIC KIDNEY DISEASE, STAGE 2 (MILD) 01/13/2018 LAURA LIU FACC, ALI FACP CCDS Ot R07.89 OTHER CHEST PAIN 01/13/2018 LAURA LIU FACC, ALI FACP CCDS Ot E66.09 OTHER OBESITY DUE TO EXCESS CALORIES 01/13/2018 LAURA LIU FACC, ALI FACP CCDS Ot E78.4 OTHER HYPERLIPIDEMIA 01/13/2018 LAURA LIU FACC, ALI FACP CCDS Ot G47.33 OBSTRUCTIVE SLEEP APNEA (ADULT) (PEDIATR 01/13/2018 LAURA NEYC, ALI FACP CCDS Ot I12.9 HYPERTENSIVE CHRONIC KIDNEY DISEASE W ST 01/13/2018 LAURA LIU FACC, ALI FACP CCDS Ot I25.10 ATHSCL HEART DISEASE OF [place] CORONARY 01/13/2018 LAURA LIU FACC, ALI FACP CCDS Ot I65.23 OCCLUSION AND STENOSIS OF [place] 01/13/2018 LAURA LIU FACC, ALI FACP CCDS Ot N18.2 CHRONIC KIDNEY DISEASE, STAGE 2 (MILD) 01/13/2018 LAURA LIU FACC, MILKA FACP CCDS Ot R07.89 OTHER CHEST PAIN 01/13/2018 ALFREDO CADENA Ot M85.852 OTH DISRD OF BONE DENSITY AND STRUCTURE, 01/13/2018 ALFREDO CADENA Ot M85.88 OTH DISRD OF BONE DENSITY AND STRUCTURE, 01/13/2018 ALFREDO CADENA Ot Z13.820 ENCOUNTER FOR SCREENING FOR OSTEOPOROSIS 01/13/[address] MD, Ot R92.0 MAMMOGRAPHIC MICROCALCIFICATION FOUND ON 01/13/[address] MD, Ot Z12.31 ENCNTR SCREEN MAMMOGRAM FOR MALIGNANT NE 01/13/[address] MD, Ot C55 MALIGNANT NEOPLASM OF UTERUS, PART UNSPE 01/13/[address] MD, Ot C56.2 MALIGNANT NEOPLASM OF LEFT OVARY 01/13/[address] MD, Ot 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 01/13/[address] MD, Ot 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 01/13/[address] MD, Ot C79.89 SECONDARY MALIGNANT NEOPLASM OF OTHER SP 01/13/[address] MD, Ot D50.0 IRON DEFICIENCY ANEMIA SECONDARY TO BLOO 01/13/[address] MD, Ot D63.1 ANEMIA IN CHRONIC KIDNEY DISEASE 01/13/[address] MD, Ot D64.81 ANEMIA DUE TO ANTINEOPLASTIC CHEMOTHERAP 01/13/[address] MD, Ot I25.10 ATHSCL HEART DISEASE OF [place] CORONARY 01/13/[address] MD, Ot K21.0 GASTRO-ESOPHAGEAL REFLUX DISEASE WITH ES 01/13/[address] MD, Ot K44.9 DIAPHRAGMATIC HERNIA WITHOUT OBSTRUCTION 01/13/[address] MD, Ot N18.9 CHRONIC KIDNEY DISEASE, UNSPECIFIED 01/13/[address] MD, Ot Z79.02 EDUCATIONAL TECHNOLOGY COORDINATOR (CURRENT) USE OF ANTITHROMBOTI 01/13/[address] MD, Ot Z79.82 [facility] (CURRENT) USE OF ASPIRIN 01/13/2018 XUN MD, ROSARIO-ARCELIA Ot Z85.3 PERSONAL HISTORY OF MALIGNANT NEOPLASM O 01/13/[address] MD Ot Z92.21 PERSONAL HISTORY OF ANTINEOPLASTIC CHEMO 01/13/[address] MD Ot Z95.5 PRESENCE OF CORONARY ANGIOPLASTY IMPLANT 01/13/2018 NEWSTEPHENJoana KochRosalio GALLARDO-C Ot D63.1 ANEMIA IN CHRONIC KIDNEY DISEASE 01/13/2018 NEWCRISTY AugustRosalio 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-C Ot E46 UNSPECIFIED PROTEIN-CALORIE MALNUTRITION 01/13/2018 NEWCRISTY AugustRosalio 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-C Ot E55.9 VITAMIN D DEFICIENCY, UNSPECIFIED 01/13/2018 NEWCRISTY AugustRosalio 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-C Ot E78.5 HYPERLIPIDEMIA, UNSPECIFIED 01/13/2018 NEWCRISTY AugustRosalio 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-C Ot E83.42 HYPOMAGNESEMIA 01/13/2018 NEWCRISTY AugustRosalio 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-C Ot E87.2 ACIDOSIS 01/13/2018 NEWCRISTY AugustRosalio 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-C Ot E87.3 ALKALOSIS 01/13/2018 NEWCRISTY AugustRosalio 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-C Ot 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, W S 01/13/2018 NEWCRISTY AugustRosalio 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-C Ot I70.1 ATHEROSCLEROSIS OF RENAL ARTERY 01/13/2018 NEWCRISTY AugustRosalio 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-C Ot N18.4 CHRONIC KIDNEY DISEASE, STAGE 4 (SEVERE) 01/13/2018 CRISTY SILVER AugustRosalio 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-C Ot N25.81 SECONDARY HYPERPARATHYROIDISM OF RENAL O 01/13/2018 CRISTY SILVER AugustRosalio 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-C Ot R73.01 IMPAIRED FASTING GLUCOSE 01/13/2018 CRISTY ISLVER AugustRosalio 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-C Ot R80.9 PROTEINURIA, UNSPECIFIED 01/13/[address] MD Ot R92.8 OTH ABN AND INCONCLUSIVE FINDINGS ON DX 01/14/[address] MD Ot R92.0 MAMMOGRAPHIC MICROCALCIFICATION FOUND ON 01/14/[address] MD Ot Z12.31 ENCNTR SCREEN MAMMOGRAM FOR MALIGNANT NE 01/18/[address] MD Ot C56.1 MALIGNANT NEOPLASM OF RIGHT OVARY 01/18/[address] MD Ot D05.11 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 01/18/[address] MD, Ot K76.0 FATTY (CHANGE OF) LIVER, NOT ELSEWHERE C 01/18/[address] MD, Ot R91.8 OTHER NONSPECIFIC ABNORMAL FINDING OF KEVYN 02/01/[address] MD, Ot C55 MALIGNANT NEOPLASM OF UTERUS, PART UNSPE 02/01/[address] MD, Ot C56.2 MALIGNANT NEOPLASM OF LEFT OVARY 02/01/[address] MD, Ot 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 02/01/[address] MD, Ot 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 02/01/[address] MD, Ot C79.89 SECONDARY MALIGNANT NEOPLASM OF OTHER SP 02/01/[address] MD, Ot D50.0 IRON DEFICIENCY ANEMIA SECONDARY TO BLOO 02/01/[address] MD, Ot D63.1 ANEMIA IN CHRONIC KIDNEY DISEASE 02/01/[address] MD, Ot D64.81 ANEMIA DUE TO ANTINEOPLASTIC CHEMOTHERAP 02/01/[address] MD, Ot I25.10 ATHSCL HEART DISEASE OF [place] CORONARY 02/01/[address] MD, Ot K21.0 GASTRO-ESOPHAGEAL REFLUX DISEASE WITH ES 02/01/[address] MD, Ot K44.9 DIAPHRAGMATIC HERNIA WITHOUT OBSTRUCTION 02/01/[address] MD, Ot N18.9 CHRONIC KIDNEY DISEASE, UNSPECIFIED 02/01/[address] MD, Ot Z79.02 EDUCATIONAL TECHNOLOGY COORDINATOR (CURRENT) USE OF ANTITHROMBOTI 02/01/[address] MD, Ot Z79.82 EDUCATIONAL TECHNOLOGY COORDINATOR (CURRENT) USE OF ASPIRIN 02/01/[address] MD, Ot Z85.3 PERSONAL HISTORY OF MALIGNANT NEOPLASM O 02/01/[address] MD, Ot Z92.21 PERSONAL HISTORY OF ANTINEOPLASTIC CHEMO 02/01/[address] MD, Ot Z95.5 PRESENCE OF CORONARY ANGIOPLASTY IMPLANT 02/02/[address] MD, Ot D05.11 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 02/02/[address] MD, Ot R79.1 ABNORMAL COAGULATION PROFILE 02/02/2018 XUN MD, ROSARIO-ARCELIA Ot R92.1 MAMMOGRAPHIC CALCIFCN FOUND ON DIAGNOSTI 02/02/[address] MD, Ot D05.11 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 02/02/[address] MD, Ot R79.1 ABNORMAL COAGULATION PROFILE 02/09/[address] MD, Ot C56.1 MALIGNANT NEOPLASM OF RIGHT OVARY 02/09/[address] MD, Ot D05.11 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 02/09/[address] MD, Ot R91.1 SOLITARY PULMONARY NODULE 02/09/[address] MD, Ot C55 MALIGNANT NEOPLASM OF UTERUS, PART UNSPE 02/09/[address] MD, Ot C56.2 MALIGNANT NEOPLASM OF LEFT OVARY 02/09/[address] MD, Ot 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 02/09/[address] MD, Ot 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 02/09/[address] MD, Ot C79.89 SECONDARY MALIGNANT NEOPLASM OF OTHER SP 02/09/[address] MD, Ot D50.0 IRON DEFICIENCY ANEMIA SECONDARY TO BLOO 02/09/[address] MD, Ot D63.1 ANEMIA IN CHRONIC KIDNEY DISEASE 02/09/[address] MD, Ot D64.81 ANEMIA DUE TO ANTINEOPLASTIC CHEMOTHERAP 02/09/[address] MD, Ot I25.10 ATHSCL HEART DISEASE OF [place] CORONARY 02/09/[address] MD, Ot K21.0 GASTRO-ESOPHAGEAL REFLUX DISEASE WITH ES 02/09/[address] MD, Ot K44.9 DIAPHRAGMATIC HERNIA WITHOUT OBSTRUCTION 02/09/[address] MD, Ot N18.9 CHRONIC KIDNEY DISEASE, UNSPECIFIED 02/09/[address] MD, Ot Z79.02 [facility] (CURRENT) USE OF ANTITHROMBOTI 02/09/[address] MD, Ot Z79.82 [facility] (CURRENT) USE OF ASPIRIN 02/09/[address] MD, Ot Z85.3 PERSONAL HISTORY OF MALIGNANT NEOPLASM O 02/09/[address] MD, Ot Z92.21 PERSONAL HISTORY OF ANTINEOPLASTIC CHEMO 02/09/[address] MD, Ot Z95.5 PRESENCE OF CORONARY ANGIOPLASTY IMPLANT 02/09/[address] MD, Ot R92.1 MAMMOGRAPHIC CALCIFCN FOUND ON DIAGNOSTI 02/09/[address] MD, Ot C55 MALIGNANT NEOPLASM OF UTERUS, PART UNSPE 02/09/[address] MD, Ot C56.2 MALIGNANT NEOPLASM OF LEFT OVARY 02/09/[address] MD, Ot 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 02/09/[address] MD, Ot 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 02/09/[address] MD, Ot C79.89 SECONDARY MALIGNANT NEOPLASM OF OTHER SP 02/09/[address] MD, Ot D50.0 IRON DEFICIENCY ANEMIA SECONDARY TO BLOO 02/09/[address] MD, Ot D63.1 ANEMIA IN CHRONIC KIDNEY DISEASE 02/09/[address] MD, Ot D64.81 ANEMIA DUE TO ANTINEOPLASTIC CHEMOTHERAP 02/09/[address] MD, Ot I25.10 ATHSCL HEART DISEASE OF [place] CORONARY 02/09/[address] MD, Ot K21.0 GASTRO-ESOPHAGEAL REFLUX DISEASE WITH ES 02/09/[address] MD, Ot K44.9 DIAPHRAGMATIC HERNIA WITHOUT OBSTRUCTION 02/09/[address] MD, Ot N18.9 CHRONIC KIDNEY DISEASE, UNSPECIFIED 02/09/[address] MD, Ot Z79.02 [facility] (CURRENT) USE OF ANTITHROMBOTI 02/09/[address] MD, Ot Z79.82 [facility] (CURRENT) USE OF ASPIRIN 02/09/[address] MD, Ot Z85.3 PERSONAL HISTORY OF MALIGNANT NEOPLASM O 02/09/[address] MD, Ot Z92.21 PERSONAL HISTORY OF ANTINEOPLASTIC CHEMO 02/09/[address] MD, Ot Z95.5 PRESENCE OF CORONARY ANGIOPLASTY IMPLANT 02/09/[address] MD, Ot C56.1 MALIGNANT NEOPLASM OF RIGHT OVARY 02/09/[address] MD, Ot D05.11 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 02/09/[address] MD, Ot K76.0 FATTY (CHANGE OF) LIVER, NOT ELSEWHERE C 02/09/[address] MD, Ot R91.8 OTHER NONSPECIFIC ABNORMAL FINDING OF KEVYN 02/15/[address] MD, Ot C56.1 MALIGNANT NEOPLASM OF RIGHT OVARY 02/15/[address] MD, Ot D05.11 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 02/15/[address] MD, Ot K76.0 FATTY (CHANGE OF) LIVER, NOT ELSEWHERE C 02/15/[address] MD, Ot R91.8 OTHER NONSPECIFIC ABNORMAL FINDING OF KEVYN 02/28/[address] MD, Ot C56.1 MALIGNANT NEOPLASM OF RIGHT OVARY 02/28/[address] MD, Ot D05.11 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 02/28/[address] MD, Ot R91.1 SOLITARY PULMONARY NODULE 03/04/[address] MD, Ot C56.1 MALIGNANT NEOPLASM OF RIGHT OVARY 03/04/[address] MD, Ot D05.11 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 03/04/[address] MD, Ot R91.1 SOLITARY PULMONARY NODULE 03/11/[address] MD, Ot C55 MALIGNANT NEOPLASM OF UTERUS, PART UNSPE 03/11/[address] MD, Ot C56.2 MALIGNANT NEOPLASM OF LEFT OVARY 03/11/[address] MD, Ot 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 03/11/[address] MD, Ot 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 03/11/[address] MD, Ot C79.89 SECONDARY MALIGNANT NEOPLASM OF OTHER SP 03/11/[address] MD, Ot D50.0 IRON DEFICIENCY ANEMIA SECONDARY TO BLOO 03/11/[address] MD, Ot D63.1 ANEMIA IN CHRONIC KIDNEY DISEASE 03/11/[address] MD, Ot D64.81 ANEMIA DUE TO ANTINEOPLASTIC CHEMOTHERAP 03/11/[address] MD, Ot I25.10 ATHSCL HEART DISEASE OF [place] CORONARY 03/11/[address] MD, Ot K21.0 GASTRO-ESOPHAGEAL REFLUX DISEASE WITH ES 03/11/[address] MD, Ot K44.9 DIAPHRAGMATIC HERNIA WITHOUT OBSTRUCTION 03/11/[address] MD, Ot N18.9 CHRONIC KIDNEY DISEASE, UNSPECIFIED 03/11/[address] MD, Ot Z51.11 ENCOUNTER FOR ANTINEOPLASTIC CHEMOTHERAP 03/11/[address] MD, Ot Z79.02 EDUCATIONAL TECHNOLOGY COORDINATOR (CURRENT) USE OF ANTITHROMBOTI 03/11/[address] MD, Ot Z79.82 [facility] (CURRENT) USE OF ASPIRIN 03/11/[address] MD, Ot Z85.3 PERSONAL HISTORY OF MALIGNANT NEOPLASM O 03/11/[address] MD, Ot Z92.21 PERSONAL HISTORY OF ANTINEOPLASTIC CHEMO 03/11/[address] MD, Ot Z95.5 PRESENCE OF CORONARY ANGIOPLASTY IMPLANT 03/11/2018 KATIA PARR MD Ot C55 MALIGNANT NEOPLASM OF UTERUS, PART UNSPE 03/11/2018 KATIA PARR MD, Ot C56.2 MALIGNANT NEOPLASM OF LEFT OVARY 03/11/2018 KATIA PARR MD, Ot 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 03/11/2018 KATIA PARR MD Ot 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 03/11/2018 KATIA PARR MD, Ot C79.89 SECONDARY MALIGNANT NEOPLASM OF OTHER SP 03/11/2018 KATIA PARR MD Ot D50.0 IRON DEFICIENCY ANEMIA SECONDARY TO BLOO 03/11/2018 KATIA PARR MD Ot D63.1 ANEMIA IN CHRONIC KIDNEY DISEASE 03/11/2018 KATIA PARR MD, Ot D64.81 ANEMIA DUE TO ANTINEOPLASTIC CHEMOTHERAP 03/11/2018 KATIA PARR MD, Ot I25.10 ATHSCL HEART DISEASE OF [place] CORONARY 03/11/2018 KATIA PARR MD Ot K21.0 GASTRO-ESOPHAGEAL REFLUX DISEASE WITH ES 03/11/2018 KATIA PARR MD, Ot K44.9 DIAPHRAGMATIC HERNIA WITHOUT OBSTRUCTION 03/11/2018 KATIA PARR MD, Ot N18.9 CHRONIC KIDNEY DISEASE, UNSPECIFIED 03/11/2018 KATIA PARR MD, Ot Z79.02 [facility] (CURRENT) USE OF ANTITHROMBOTI 03/11/2018 KATIA PARR MD, Ot Z79.82 [facility] (CURRENT) USE OF ASPIRIN 03/11/2018 KATIA PARR MD Ot Z85.3 PERSONAL HISTORY OF MALIGNANT NEOPLASM O 03/11/2018 KTAIA PARR MD Ot Z92.21 PERSONAL HISTORY OF ANTINEOPLASTIC CHEMO 03/11/2018 KATIA PARR MD Ot Z95.5 PRESENCE OF CORONARY ANGIOPLASTY IMPLANT 03/11/2018 Ot V10.3 HX OF BREAST MALIGNANCY 03/11/2018 Ot V76.11 SCRN MAMMO- HIGH RISK PT, MALIGNANT NEOPL 03/11/2018 Ot 183.0 MALIGN NEOPL OVARY 03/11/2018 Ot 786.09 RESPIRATORY ABNORM NEC 03/11/2018 Ot 786.09 RESPIRATORY ABNORM NEC 03/11/[address] MD Ot 183.0 MALIGN NEOPL OVARY 03/11/2018 BHARAT LIU, FERNY Gordon Ot V72.84 EXAM PRE-OPERATIVE NOS 03/11/2018 FERNY NICHOLSON MD Ot V72.84 EXAM PRE-OPERATIVE NOS 03/11/2018 FERNY NICHOLSON MD Ot V72.84 EXAM PRE-OPERATIVE NOS 03/11/[address] MD Ot 721.0 CERVICAL SPONDYLOSIS 03/11/[address] MD Ot V76.12 OTH SCREEN MAMMO-MALIGN NEOPLASM OF [place] 03/11/2018 FERNY NICHOLSON MD Ot V72.84 EXAM PRE-OPERATIVE NOS 03/11/2018 FERNY NICHOLSON MD Ot V72.84 EXAM PRE-OPERATIVE NOS 03/11/2018 FERNY NICHOLSON MD Ot V72.84 EXAM PRE-OPERATIVE NOS 03/11/2018 ALFREDO CADENA Ot 585.3 CHRONIC KIDNEY DISEASE, STAGE III (MODER 03/11/2018 ALFREDO CADENA Ot 793.5 NOSP (ABN) FINDINGS ON RADIOLOGICAL OT 03/11/2018 FERNY NICHOLSON MD Ot 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 03/11/2018 FERNY NICHOLSON MD Ot V72.84 EXAM PRE-OPERATIVE NOS 03/11/[address] MD Ot 174.9 MALIGN NEOPL BREAST NOS 03/11/[address] MD Ot V76.11 SCRN MAMMO-HIGH RISK PT, MALIGNANT NEOPL 03/11/[address] MD Ot 183.0 MALIGN NEOPL OVARY 03/11/2018 BAIMA, NALINI L SHEET METAL ERECTOR Ot 272.4 HYPERLIPIDEMIA NEC/NOS 03/11/2018 BAIMA, NALINI L SHEET METAL ERECTOR Ot 401.9 HYPERTENSION NOS 03/11/2018 BAIMA, NALINI L SHEET METAL ERECTOR Ot 414.9 CHR ISCHEMIC HRT DIS NOS 03/11/2018 BAIMA, NALINI L SHEET METAL ERECTOR Ot 437.9 CEREBROVASC DISEASE NOS 03/11/2018 BAIMA, NALINI L SHEET METAL ERECTOR Ot 272.4 HYPERLIPIDEMIA NEC/NOS 03/11/2018 BAIMA, NALINI L SHEET METAL ERECTOR Ot 401.9 HYPERTENSION NOS 03/11/2018 BAIMA, NALINI L SHEET METAL ERECTOR Ot 414.00 CORON ATHEROSCLER NOS TYPE VESSEL, NATIV 03/11/2018 BAIMA, NALINI L SHEET METAL ERECTOR Ot 437.9 CEREBROVASC DISEASE NOS 03/11/[address] MD Ot 174.9 MALIGN NEOPL BREAST NOS 03/11/[address] MD Ot 183.0 MALIGN NEOPL OVARY 03/11/2018 BHARAT LIU, FERNY S Ot 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 03/11/2018 FERNY NICHOLSON MD S Ot V72.84 EXAM PRE-OPERATIVE NOS 03/11/[address] MD Ot C50.919 MALIGNANT NEOPLASM OF UNSP SITE OF UNSPE 03/11/[address] MD, Ot C56.9 MALIGNANT NEOPLASM OF UNSPECIFIED OVARY 03/11/[address] MD Ot T85.698A [facility] COMPL OF INTERNAL PROSTH DEV/GRFT, 03/11/2018 TEODORO HERNANDEZ DO Ot Z01.818 ENCOUNTER FOR OTHER PREPROCEDURAL EXAMIN 03/11/[address] MD Ot C56.2 MALIGNANT NEOPLASM OF LEFT OVARY 03/11/[address] MD Ot Z85.3 PERSONAL HISTORY OF MALIGNANT NEOPLASM O 03/11/[address] MD Ot C50.919 MALIGNANT NEOPLASM OF UNSP SITE OF UNSPE 03/11/[address] MD, Ot C56.9 MALIGNANT NEOPLASM OF UNSPECIFIED OVARY 03/11/[address] MD Ot Z12.31 ENCNTR SCREEN MAMMOGRAM FOR MALIGNANT NE 03/11/[address] MD, Ot C56.1 MALIGNANT NEOPLASM OF RIGHT OVARY 03/11/2018 JAD LIU, DANA Ot N18.9 CHRONIC KIDNEY DISEASE, UNSPECIFIED 03/11/2018 PENALOZA DO, ARIELLA D Ot C55 MALIGNANT NEOPLASM OF UTERUS, PART UNSPE 03/11/2018 PENALOZA DO, ARIELLA D Ot C56.2 MALIGNANT NEOPLASM OF LEFT OVARY 03/11/2018 PENALOZA DO, ARIELLA D Ot E78.5 HYPERLIPIDEMIA, UNSPECIFIED 03/11/2018 PENALOZA DO, ARIELLA D Ot G47.33 OBSTRUCTIVE SLEEP APNEA (ADULT) (PEDIATR 03/11/2018 PENALOZA DO, ARIELLA D Ot I12.9 HYPERTENSIVE CHRONIC KIDNEY DISEASE W ST 03/11/2018 PENALOZA DO, ARIELLA D Ot I25.10 ATHSCL HEART DISEASE OF [place] CORONARY 03/11/2018 PENALOZA DO, ARIELLA D Ot N18.2 CHRONIC KIDNEY DISEASE, STAGE 2 (MILD) 03/11/2018 PENALOZA DO ARIELLA D Ot T82.514A BREAKDOWN (MECHANICAL) OF INFUSION PAT 03/11/2018 PENALOZA DO, ARIELLA D Ot Z79.02 EDUCATIONAL TECHNOLOGY COORDINATOR (CURRENT) USE OF ANTITHROMBOTI 03/11/2018 PENALOZA DO, ARIELLA D Ot Z79.82 EDUCATIONAL TECHNOLOGY COORDINATOR (CURRENT) USE OF ASPIRIN 03/11/2018 CA DO ARIELLA D Ot Z85.3 PERSONAL HISTORY OF MALIGNANT NEOPLASM O 03/11/2018 PENALOZA DO ARIELLA D Ot C56.9 MALIGNANT NEOPLASM OF UNSPECIFIED OVARY 03/11/2018 PENALOZA DO, ARIELLA D Ot E78.5 HYPERLIPIDEMIA, UNSPECIFIED 03/11/2018 PENALOZA DO, ARIELLA D Ot G47.33 OBSTRUCTIVE SLEEP APNEA (ADULT) (PEDIATR 03/11/2018 PENALOZA DO, ARIELLA D Ot I12.9 HYPERTENSIVE CHRONIC KIDNEY DISEASE W ST 03/11/2018 PENALOZA DO, ARIELLA D Ot I25.10 ATHSCL HEART DISEASE OF [place] CORONARY 03/11/2018 PENALOZA DO, ARIELLA D Ot N18.2 CHRONIC KIDNEY DISEASE, STAGE 2 (MILD) 03/11/2018 PENALOZA DO, ARIELLA D Ot T82.514D BREAKDOWN (MECHANICAL) OF INFUSION PAT 03/11/2018 PENALOZA DO, ARIELLA D Ot Z79.02 [facility] (CURRENT) USE OF ANTITHROMBOTI 03/11/2018 PENALOZA DO, ARIELLA D Ot Z79.82 [facility] (CURRENT) USE OF ASPIRIN 03/11/2018 ARIELLA PENALOZA DO Norm Ot Z85.3 PERSONAL HISTORY OF MALIGNANT NEOPLASM O 03/11/[address] MD Ot C56.1 MALIGNANT NEOPLASM OF RIGHT OVARY 03/11/[address] MD Ot Z12.31 ENCNTR SCREEN MAMMOGRAM FOR MALIGNANT NE 03/11/2018 LAURA NYEC, ALI FACP CCDS Ot E66.09 OTHER OBESITY DUE TO EXCESS CALORIES 03/11/2018 LAURA NYEC, ALI FACP CCDS Ot E78.4 OTHER HYPERLIPIDEMIA 03/11/2018 LAURA NYEC, ALI FACP CCDS Ot G47.33 OBSTRUCTIVE SLEEP APNEA (ADULT) (PEDIATR 03/11/2018 LAURA LIU FACC, ALI FACP CCDS Ot I12.9 HYPERTENSIVE CHRONIC KIDNEY DISEASE W ST 03/11/2018 LAURA NYEC, ALI FACP CCDS Ot I25.10 ATHSCL HEART DISEASE OF [place] CORONARY 03/11/2018 LAURA LIU FACC, ALI FACP CCDS Ot I65.23 OCCLUSION AND STENOSIS OF [place]ATER[place] 03/11/2018 LAURA NYEC, ALI FACP CCDS Ot N18.2 CHRONIC KIDNEY DISEASE, STAGE 2 (MILD) 03/11/2018 LAURA NYEC, ALI FACP CCDS Ot R07.89 OTHER CHEST PAIN 03/11/2018 LAURA NYEC, ALI FACP CCDS Ot E66.09 OTHER OBESITY DUE TO EXCESS CALORIES 03/11/2018 LAURA LIU FACC, ALI FACP CCDS Ot E78.4 OTHER HYPERLIPIDEMIA 03/11/2018 LAURA NYEC, ALI FACP CCDS Ot G47.33 OBSTRUCTIVE SLEEP APNEA (ADULT) (PEDIATR 03/11/2018 LAURA LIU FACC, ALI FACP CCDS Ot I12.9 HYPERTENSIVE CHRONIC KIDNEY DISEASE W ST 03/11/2018 LAURA NYEC, ALI FACP CCDS Ot I25.10 ATHSCL HEART DISEASE OF [place] CORONARY 03/11/2018 LAURA LIU FACC, ALI FACP CCDS Ot I65.23 OCCLUSION AND STENOSIS OF [place] 03/11/2018 LAURA LIU FACC, ALI FACP CCDS Ot N18.2 CHRONIC KIDNEY DISEASE, STAGE 2 (MILD) 03/11/2018 LAURA NYEC, ALI FACP CCDS Ot R07.89 OTHER CHEST PAIN 03/11/2018 ALFREDO CADENA Ot M85.852 OT DISRD OF BONE DENSITY AND STRUCTURE, 03/11/2018 ALFREDO CADENA Ot M85.88 OTH DISRD OF BONE DENSITY AND STRUCTURE, 03/11/2018 ALFREDO CADENA Ot Z13.820 ENCOUNTER FOR SCREENING FOR OSTEOPOROSIS 03/11/[address] MD Ot R92.0 MAMMOGRAPHIC MICROCALCIFICATION FOUND ON 03/11/[address] MD Ot Z12.31 ENCNTR SCREEN MAMMOGRAM FOR MALIGNANT NE 03/11/2018 NEW, CRISTY Ross NP-C Ot D63.1 ANEMIA IN CHRONIC KIDNEY DISEASE 03/11/2018 NEW, CRISTY Ross 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-C Ot E46 UNSPECIFIED PROTEIN-CALORIE MALNUTRITION 03/11/2018 NEWCRISTY 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-C Ot E55.9 VITAMIN D DEFICIENCY, UNSPECIFIED 03/11/2018 NEWCR[place] 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-C Ot E78.5 HYPERLIPIDEMIA, UNSPECIFIED 03/11/2018 NEW, CRISTY Ross 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-C Ot E83.42 HYPOMAGNESEMIA 03/11/2018 NEW, CRISTY Ross 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-C Ot E87.2 ACIDOSIS 03/11/2018 NEWCRISTY 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-C Ot E87.3 ALKALOSIS 03/11/2018 CRISTY SILVER 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-C Ot 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, W S 03/11/2018 CRISTY SILVER 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-C Ot I70.1 ATHEROSCLEROSIS OF RENAL ARTERY 03/11/2018 NEW, CRISTY Ross 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-C Ot N18.4 CHRONIC KIDNEY DISEASE, STAGE 4 (SEVERE) 03/11/2018 NEW, CRISTY Ross 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-C Ot N25.81 SECONDARY HYPERPARATHYROIDISM OF RENAL O 03/11/2018 CRISTY SILVER 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-C Ot R73.01 IMPAIRED FASTING GLUCOSE 03/11/2018 ADRIANNE, CRISTY Ross 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-C Ot R80.9 PROTEINURIA, UNSPECIFIED 03/11/[address] MD Ot R92.1 MAMMOGRAPHIC CALCIFCN FOUND ON DIAGNOSTI 03/11/[address] MD, Ot C56.1 MALIGNANT NEOPLASM OF RIGHT OVARY 03/11/[address] MD, Ot D05.11 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 03/11/[address] MD, Ot K76.0 FATTY (CHANGE OF) LIVER, NOT ELSEWHERE C 03/11/[address] MD Ot R91.8 OTHER NONSPECIFIC ABNORMAL FINDING OF [place] 03/11/[address] MD, Ot C56.1 MALIGNANT NEOPLASM OF RIGHT OVARY 03/11/[address] MD, Ot D05.11 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 03/11/[address] MD, Ot R91.1 SOLITARY PULMONARY NODULE 03/11/2018 KATIA PARR MD, Ot C55 MALIGNANT NEOPLASM OF UTERUS, PART UNSPE 03/11/2018 KATIA PARR MD, Ot C56.2 MALIGNANT NEOPLASM OF LEFT OVARY 03/11/2018 KATIA PARR MD, Ot 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 03/11/2018 KATIA PARR MD, Ot 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 03/11/2018 KATIA PARR MD, Ot C79.89 SECONDARY MALIGNANT NEOPLASM OF OTHER SP 03/11/2018 KATIA PARR MD, Ot D50.0 IRON DEFICIENCY ANEMIA SECONDARY TO BLOO 03/11/2018 KATIA PARR MD, Ot D63.1 ANEMIA IN CHRONIC KIDNEY DISEASE 03/11/2018 KATIA PARR MD, Ot D64.81 ANEMIA DUE TO ANTINEOPLASTIC CHEMOTHERAP 03/11/2018 KATIA PARR MD, Ot I25.10 ATHSCL HEART DISEASE OF [place] CORONARY 03/11/2018 KATIA PARR MD Ot K21.0 GASTRO-ESOPHAGEAL REFLUX DISEASE WITH ES 03/11/2018 KATIA PARR MD, Ot K44.9 DIAPHRAGMATIC HERNIA WITHOUT OBSTRUCTION 03/11/2018 KATIA PARR MD, Ot N18.9 CHRONIC KIDNEY DISEASE, UNSPECIFIED 03/11/2018 KATIA PARR MD, Ot Z79.02 EDUCATIONAL TECHNOLOGY COORDINATOR (CURRENT) USE OF ANTITHROMBOTI 03/11/2018 KATIA PARR MD, Ot Z79.82 EDUCATIONAL TECHNOLOGY COORDINATOR (CURRENT) USE OF ASPIRIN 03/11/2018 KATIA PARR MD, Ot Z85.3 PERSONAL HISTORY OF MALIGNANT NEOPLASM O 03/11/2018 KATIA PARR MD, Ot Z92.21 PERSONAL HISTORY OF ANTINEOPLASTIC CHEMO 03/11/2018 KESHAV MD, MONTALVO Ot Z95.5 PRESENCE OF CORONARY ANGIOPLASTY IMPLANT 03/11/[address] MD, Ot C55 MALIGNANT NEOPLASM OF UTERUS, PART UNSPE 03/11/[address] MD, Ot C56.2 MALIGNANT NEOPLASM OF LEFT OVARY 03/11/[address] MD, Ot 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 03/11/[address] MD, Ot 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 03/11/[address] MD, Ot C79.89 SECONDARY MALIGNANT NEOPLASM OF OTHER SP 03/11/[address] MD, Ot D50.0 IRON DEFICIENCY ANEMIA SECONDARY TO BLOO 03/11/[address] MD, Ot D63.1 ANEMIA IN CHRONIC KIDNEY DISEASE 03/11/[address] MD, Ot D64.81 ANEMIA DUE TO ANTINEOPLASTIC CHEMOTHERAP 03/11/[address] MD, Ot I25.10 ATHSCL HEART DISEASE OF [place] CORONARY 03/11/[address] MD, Ot K21.0 GASTRO-ESOPHAGEAL REFLUX DISEASE WITH ES 03/11/[address] MD, Ot K44.9 DIAPHRAGMATIC HERNIA WITHOUT OBSTRUCTION 03/11/[address] MD, Ot N18.9 CHRONIC KIDNEY DISEASE, UNSPECIFIED 03/11/[address] MD, Ot Z51.11 ENCOUNTER FOR ANTINEOPLASTIC CHEMOTHERAP 03/11/[address] MD, Ot Z79.02 EDUCATIONAL TECHNOLOGY COORDINATOR (CURRENT) USE OF ANTITHROMBOTI 03/11/[address] MD, Ot Z79.82 EDUCATIONAL TECHNOLOGY COORDINATOR (CURRENT) USE OF ASPIRIN 03/11/[address] MD, Ot Z85.3 PERSONAL HISTORY OF MALIGNANT NEOPLASM O 03/11/[address] MD, Ot Z92.21 PERSONAL HISTORY OF ANTINEOPLASTIC CHEMO 03/11/[address] MD, Ot Z95.5 PRESENCE OF CORONARY ANGIOPLASTY IMPLANT 03/11/2018 KATIA PARR MD, Ot C55 MALIGNANT NEOPLASM OF UTERUS, PART UNSPE 03/11/2018 KATIA PARR MD, Ot C56.2 MALIGNANT NEOPLASM OF LEFT OVARY 03/11/2018 KATIA PARR MD, Ot 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 03/11/2018 KESHAV MD, MONTALVO Ot 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 03/11/2018 KATIA PARR MD Ot C79.89 SECONDARY MALIGNANT NEOPLASM OF OTHER SP 03/11/2018 KATIA PARR MD Ot D50.0 IRON DEFICIENCY ANEMIA SECONDARY TO BLOO 03/11/2018 KATIA PARR MD Ot D63.1 ANEMIA IN CHRONIC KIDNEY DISEASE 03/11/2018 KATIA PARR MD Ot D64.81 ANEMIA DUE TO ANTINEOPLASTIC CHEMOTHERAP 03/11/2018 KATIA PARR MD Ot I25.10 ATHSCL HEART DISEASE OF [place] CORONARY 03/11/2018 KATIA PARR MD Ot K21.0 GASTRO-ESOPHAGEAL REFLUX DISEASE WITH ES 03/11/2018 KATIA PARR MD Ot K44.9 DIAPHRAGMATIC HERNIA WITHOUT OBSTRUCTION 03/11/2018 KATIA PARR MD, Ot N18.9 CHRONIC KIDNEY DISEASE, UNSPECIFIED 03/11/2018 KATIA PARR MD, Ot Z79.02 [facility] (CURRENT) USE OF ANTITHROMBOTI 03/11/2018 KATIA PARR MD, Ot Z79.82 EDUCATIONAL TECHNOLOGY COORDINATOR (CURRENT) USE OF ASPIRIN 03/11/2018 KATIA PARR MD Ot Z85.3 PERSONAL HISTORY OF MALIGNANT NEOPLASM O 03/11/2018 KATIA PARR MD Ot Z92.21 PERSONAL HISTORY OF ANTINEOPLASTIC CHEMO 03/11/2018 KATIA PARR MD Ot Z95.5 PRESENCE OF CORONARY ANGIOPLASTY IMPLANT 03/17/2018 Ot V10.3 HX OF BREAST MALIGNANCY 03/17/2018 Ot V76.11 SCRN MAMMO- HIGH RISK PT, MALIGNANT NEOPL 03/17/2018 Ot 183.0 MALIGN NEOPL OVARY 03/17/2018 Ot 786.09 RESPIRATORY ABNORM NEC 03/17/2018 Ot 786.09 RESPIRATORY ABNORM NEC 03/17/[address] MD Ot 183.0 MALIGN NEOPL OVARY 03/17/2018 FERNY NICHOLSON MD Ot V72.84 EXAM PRE-OPERATIVE NOS 03/17/2018 FERNY NICHOLSON MD Ot V72.84 EXAM PRE-OPERATIVE NOS 03/17/2018 FERNY NICHOLSON MD Ot V72.84 EXAM PRE-OPERATIVE NOS 03/17/2018 DANA STER[address] MD Ot 721.0 CERVICAL SPONDYLOSIS 03/17/[address] MD Ot V76.12 OTH SCREEN MAMMO-MALIGN NEOPLASM OF [place] 03/17/2018 BHARAT LIU, FERNY S Ot V72.84 EXAM PRE-OPERATIVE NOS 03/17/2018 BHARAT LIU, FERNY Gordon Ot V72.84 EXAM PRE-OPERATIVE NOS 03/17/2018 BHARAT LIU, FERNY Gordon Ot V72.84 EXAM PRE-OPERATIVE NOS 03/17/2018 ALFREDO CADENA Ot 585.3 CHRONIC KIDNEY DISEASE, STAGE III (MODER 03/17/2018 ALFREDO CADENA Ot 793.5 NOSP (ABN) FINDINGS ON RADIOLOGICAL OT 03/17/2018 BHARAT LIU, FERNY Gordon Ot 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 03/17/2018 BHARAT LIU, FERNY Gordon Ot V72.84 EXAM PRE-OPERATIVE NOS 03/17/[address] MD Ot 174.9 MALIGN NEOPL BREAST NOS 03/17/[address] MD Ot V76.11 SCRN MAMMO-HIGH RISK PT, MALIGNANT NEOPL 03/17/[address] MD Ot 183.0 MALIGN NEOPL OVARY 03/17/2018 BAIMA, NALINI L SHEET METAL ERECTOR Ot 272.4 HYPERLIPIDEMIA NEC/NOS 03/17/2018 BAIMA, NALINI L SHEET METAL ERECTOR Ot 401.9 HYPERTENSION NOS 03/17/2018 CORYMA, NALINI L SHEET METAL ERECTOR Ot 414.9 CHR ISCHEMIC HRT DIS NOS 03/17/2018 BAIMA, NALINI L SHEET METAL ERECTOR Ot 437.9 CEREBROVASC DISEASE NOS 03/17/2018 CORYMA, NALINI L SHEET METAL ERECTOR Ot 272.4 HYPERLIPIDEMIA NEC/NOS 03/17/2018 CORYMA, NALINI L SHEET METAL ERECTOR Ot 401.9 HYPERTENSION NOS 03/17/2018 CORYMA, NALINI L SHEET METAL ERECTOR Ot 414.00 CORON ATHEROSCLER NOS TYPE VESSEL, NATIV 03/17/2018 JAZ, NALINI L SHEET METAL ERECTOR Ot 437.9 CEREBROVASC DISEASE NOS 03/17/[address] MD Ot 174.9 MALIGN NEOPL BREAST NOS 03/17/[address] MD Ot 183.0 MALIGN NEOPL OVARY 03/17/2018 BHARAT LIU, FERNY S Ot 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 03/17/2018 BHARAT LIU, FERNY Gordon Ot V72.84 EXAM PRE-OPERATIVE NOS 03/17/[address] MD Ot C50.919 MALIGNANT NEOPLASM OF UNSP SITE OF UNSPE 03/17/[address] MD Ot C56.9 MALIGNANT NEOPLASM OF UNSPECIFIED OVARY 03/17/[address] MD, Ot T85.698A [facility] COMPL OF INTERNAL PROSTH DEV/GRFT, 03/17/2018 TEODORO HERNANDEZ DO Ot Z01.818 ENCOUNTER FOR OTHER PREPROCEDURAL EXAMIN 03/17/[address] MD, Ot C56.2 MALIGNANT NEOPLASM OF LEFT OVARY 03/17/[address] MD Ot Z85.3 PERSONAL HISTORY OF MALIGNANT NEOPLASM O 03/17/[address] MD, Ot C50.919 MALIGNANT NEOPLASM OF UNSP SITE OF UNSPE 03/17/[address] MD, Ot C56.9 MALIGNANT NEOPLASM OF UNSPECIFIED OVARY 03/17/[address] MD, Ot Z12.31 ENCNTR SCREEN MAMMOGRAM FOR MALIGNANT NE 03/17/[address] MD, Ot C56.1 MALIGNANT NEOPLASM OF RIGHT OVARY 03/17/[address] MD Ot N18.9 CHRONIC KIDNEY DISEASE, UNSPECIFIED 03/17/2018 ARIELLA PENALOZA DO Ot C55 MALIGNANT NEOPLASM OF UTERUS, PART UNSPE 03/17/2018 ARIELLA PENALOZA DO Ot C56.2 MALIGNANT NEOPLASM OF LEFT OVARY 03/17/2018 ARIELLA PENALOZA DO Ot E78.5 HYPERLIPIDEMIA, UNSPECIFIED 03/17/2018 ARIELLA PENALOZA DO Ot G47.33 OBSTRUCTIVE SLEEP APNEA (ADULT) (PEDIATR 03/17/2018 ARIELLA PENALOZA DO Ot I12.9 HYPERTENSIVE CHRONIC KIDNEY DISEASE W ST 03/17/2018 ARIELLA PENALOZA DO Ot I25.10 ATHSCL HEART DISEASE OF [place] CORONARY 03/17/2018 ARIELLA PENALOZA DO Ot N18.2 CHRONIC KIDNEY DISEASE, STAGE 2 (MILD) 03/17/2018 ARIELLA PENALOZA DO Ot T82.514A BREAKDOWN (MECHANICAL) OF INFUSION PAT 03/17/2018 ARIELLA PENALOZA DO Ot Z79.02 EDUCATIONAL TECHNOLOGY COORDINATOR (CURRENT) USE OF ANTITHROMBOTI 03/17/2018 ARIELLA PENALOZA DO Ot Z79.82 EDUCATIONAL TECHNOLOGY COORDINATOR (CURRENT) USE OF ASPIRIN 03/17/2018 ARIELLA PENALOZA DO D Ot Z85.3 PERSONAL HISTORY OF MALIGNANT NEOPLASM O 03/17/2018 ARIELLA PENALOZA DO Ot C56.9 MALIGNANT NEOPLASM OF UNSPECIFIED OVARY 03/17/2018 ARIELLA PENALOZA DO Ot E78.5 HYPERLIPIDEMIA, UNSPECIFIED 03/17/2018 ARIELLA PENALOZA DO D Ot G47.33 OBSTRUCTIVE SLEEP APNEA (ADULT) (PEDIATR 03/17/2018 ARIELLA PENALOZA DO D Ot I12.9 HYPERTENSIVE CHRONIC KIDNEY DISEASE W ST 03/17/2018 ARIELLA PENALOZA DO D Ot I25.10 ATHSCL HEART DISEASE OF [place] CORONARY 03/17/2018 YASH PENALOZA DOTT D Ot N18.2 CHRONIC KIDNEY DISEASE, STAGE 2 (MILD) 03/17/2018 ARIELLA PENALOZA DO Ot T82.514D BREAKDOWN (MECHANICAL) OF INFUSION PAT 03/17/2018 ARIELLA PENALOZA DO Ot Z79.02 [facility] (CURRENT) USE OF ANTITHROMBOTI 03/17/2018 ARIELLA PENALOZA DO Ot Z79.82 [facility] (CURRENT) USE OF ASPIRIN 03/17/2018 ARIELLA PENALOZA DO Ot Z85.3 PERSONAL HISTORY OF MALIGNANT NEOPLASM O 03/17/[address] MD Ot C56.1 MALIGNANT NEOPLASM OF RIGHT OVARY 03/17/[address] MD Ot Z12.31 ENCNTR SCREEN MAMMOGRAM FOR MALIGNANT NE 03/17/2018 LAURA LIU FACC, MILKA FACP CCDS Ot E66.09 OTHER OBESITY DUE TO EXCESS CALORIES 03/17/2018 LAURA LIU FACC, ALI FACP CCDS Ot E78.4 OTHER HYPERLIPIDEMIA 03/17/2018 LAURA LIU FACC, ALI FACP CCDS Ot G47.33 OBSTRUCTIVE SLEEP APNEA (ADULT) (PEDIATR 03/17/2018 LAURA LIU FACC, MILAK FACP CCDS Ot I12.9 HYPERTENSIVE CHRONIC KIDNEY DISEASE W ST 03/17/2018 LAURA LIU FACC, MILKA FACP CCDS Ot I25.10 ATHSCL HEART DISEASE OF [place] CORONARY 03/17/2018 LAURA LIU FACC, ALI FACP CCDS Ot I65.23 OCCLUSION AND STENOSIS OF BILATERAL [place] 03/17/2018 LAURA LIU FACC, ALI FACP CCDS Ot N18.2 CHRONIC KIDNEY DISEASE, STAGE 2 (MILD) 03/17/2018 LAURA LIU FACC, ALI FACP CCDS Ot R07.89 OTHER CHEST PAIN 03/17/2018 LAURA LIU FACC, ALI FACP CCDS Ot E66.09 OTHER OBESITY DUE TO EXCESS CALORIES 03/17/2018 LAURA LIU FACC, ALI FACP CCDS Ot E78.4 OTHER HYPERLIPIDEMIA 03/17/2018 LAURA LIU FACC, ALI FACP CCDS Ot G47.33 OBSTRUCTIVE SLEEP APNEA (ADULT) (PEDIATR 03/17/2018 LAURA LIU FACC, ALI FACP CCDS Ot I12.9 HYPERTENSIVE CHRONIC KIDNEY DISEASE W ST 03/17/2018 LAURA LIU FACC, ALI FACP CCDS Ot I25.10 ATHSCL HEART DISEASE OF [place] CORONARY 03/17/2018 LAURA LIU FACC, ALI FACP CCDS Ot I65.23 OCCLUSION AND STENOSIS OF BILATERAL [place] 03/17/2018 LAURA LIU FACC, ALI FACP CCDS Ot N18.2 CHRONIC KIDNEY DISEASE, STAGE 2 (MILD) 03/17/2018 LAURA LIU FACC, ALI FACP CCDS Ot R07.89 OTHER CHEST PAIN 03/17/2018 ALFREDO CADENA Ot M85.852 OT DISRD OF BONE DENSITY AND STRUCTURE, 03/17/2018 ALFREDO CADENA Ot M85.88 OTH DISRD OF BONE DENSITY AND STRUCTURE, 03/17/2018 ALFREDO CADENA Ot Z13.820 ENCOUNTER FOR SCREENING FOR OSTEOPOROSIS 03/17/[address] MD Ot R92.0 MAMMOGRAPHIC MICROCALCIFICATION FOUND ON 03/17/[address] MD Ot Z12.31 ENCNTR SCREEN MAMMOGRAM FOR MALIGNANT NE 03/17/2018 CRISTY SILVER NP-C Ot D63.1 ANEMIA IN CHRONIC KIDNEY DISEASE 03/17/2018 CRISTY SILVER NP-C Ot E46 UNSPECIFIED PROTEIN-CALORIE MALNUTRITION 03/17/2018 CRISTY SILVER NP-C Ot E55.9 VITAMIN D DEFICIENCY, UNSPECIFIED 03/17/2018 CRISTY SILVER NP-C Ot E78.5 HYPERLIPIDEMIA, UNSPECIFIED 03/17/2018 CRISTY SILVER NP-C Ot E83.42 HYPOMAGNESEMIA 03/17/2018 CRSITY SILVER NP-Sherine Ot E87.2 ACIDOSIS 03/17/2018 STEPHEN SILVERJoana KochRosalio GALLARDO-C Ot E87.3 ALKALOSIS 03/17/2018 ADRIANNE CRISTY KochRosalio GALLARDO-C Ot 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, W S 03/17/2018 STEPHEN SILVERJoana KochRosalio GALLARDO-C Ot I70.1 ATHEROSCLEROSIS OF RENAL ARTERY 03/17/2018 CRISTY SILVER AugustRosalio GALLARDO-C Ot N18.4 CHRONIC KIDNEY DISEASE, STAGE 4 (SEVERE) 03/17/2018 STEPHEN SILVERJoana KochRosalio GALLARDO-C Ot N25.81 SECONDARY HYPERPARATHYROIDISM OF RENAL O 03/17/2018 CRISTY SILVER AugustRosalio GALLARDO-C Ot R73.01 IMPAIRED FASTING GLUCOSE 03/17/2018 CRISTY SILVER AugustRosalio GALLARDO-C Ot R80.9 PROTEINURIA, UNSPECIFIED 03/17/[address] MD Ot R92.1 MAMMOGRAPHIC CALCIFCN FOUND ON DIAGNOSTI 03/17/[address] MD, Ot C56.1 MALIGNANT NEOPLASM OF RIGHT OVARY 03/17/[address] MD Ot D05.11 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 03/17/[address] MD Ot K76.0 FATTY (CHANGE OF) LIVER, NOT ELSEWHERE C 03/17/[address] MD Ot R91.8 OTHER NONSPECIFIC ABNORMAL FINDING OF KEVYN 03/17/[address] MD, Ot C56.1 MALIGNANT NEOPLASM OF RIGHT OVARY 03/17/[address] MD Ot D05.11 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 03/17/[address] MD Ot R91.1 SOLITARY PULMONARY NODULE 03/17/2018 KATIA PARR MD, Ot C55 MALIGNANT NEOPLASM OF UTERUS, PART UNSPE 03/17/2018 KATIA PARR MD, Ot C56.2 MALIGNANT NEOPLASM OF LEFT OVARY 03/17/2018 KATIA PARR MD, Ot 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 03/17/2018 KATIA PARR MD, Ot 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 03/17/2018 KATIA PARR MD Ot C79.89 SECONDARY MALIGNANT NEOPLASM OF OTHER SP 03/17/2018 KATIA PARR MD Ot D50.0 IRON DEFICIENCY ANEMIA SECONDARY TO BLOO 03/17/2018 KATIA PARR MD Ot D63.1 ANEMIA IN CHRONIC KIDNEY DISEASE 03/17/2018 KATIA PARR MD Ot D64.81 ANEMIA DUE TO ANTINEOPLASTIC CHEMOTHERAP 03/17/2018 KATIA PARR MD Ot I25.10 ATHSCL HEART DISEASE OF [place] CORONARY 03/17/2018 KATIA PARR MD Ot K21.0 GASTRO-ESOPHAGEAL REFLUX DISEASE WITH ES 03/17/2018 KATIA PARR MD Ot K44.9 DIAPHRAGMATIC HERNIA WITHOUT OBSTRUCTION 03/17/2018 KATIA PARR MD Ot N18.9 CHRONIC KIDNEY DISEASE, UNSPECIFIED 03/17/2018 KATIA PARR MD Ot Z79.02 [facility] (CURRENT) USE OF ANTITHROMBOTI 03/17/2018 KATIA PARR MD, Ot Z79.82 [facility] (CURRENT) USE OF ASPIRIN 03/17/2018 KATIA PARR MD, Ot Z85.3 PERSONAL HISTORY OF MALIGNANT NEOPLASM O 03/17/2018 KATIA PARR MD Ot Z92.21 PERSONAL HISTORY OF ANTINEOPLASTIC CHEMO 03/17/2018 KATIA PARR MD Ot Z95.5 PRESENCE OF CORONARY ANGIOPLASTY IMPLANT 03/28/2018 Ot V10.3 HX OF BREAST MALIGNANCY 03/28/2018 Ot V76.11 SCRN MAMMO- HIGH RISK PT, MALIGNANT NEOPL 03/28/2018 Ot 183.0 MALIGN NEOPL OVARY 03/28/2018 Ot 786.09 RESPIRATORY ABNORM NEC 03/28/2018 Ot 786.09 RESPIRATORY ABNORM NEC 03/28/[address] MD Ot 183.0 MALIGN NEOPL OVARY 03/28/2018 FERNY NICHOLSON MD Ot V72.84 EXAM PRE-OPERATIVE NOS 03/28/2018 FERNY NICHOLSON MD Ot V72.84 EXAM PRE-OPERATIVE NOS 03/28/2018 FERNY NICHOLSON MD Ot V72.84 EXAM PRE-OPERATIVE NOS 03/28/[address] MD Ot 721.0 CERVICAL SPONDYLOSIS 03/28/[address] MD Ot V76.12 OTH SCREEN MAMMO-MALIGN NEOPLASM OF [place] 03/28/2018 FERNY NICHOLSON MD Ot V72.84 EXAM PRE-OPERATIVE NOS 03/28/2018 FERNY NICHOLSON MD Ot V72.84 EXAM PRE-OPERATIVE NOS 03/28/2018 FERNY NICHOLSON MD Ot V72.84 EXAM PRE-OPERATIVE NOS 03/28/2018 ALFREDO CADENA Ot 585.3 CHRONIC KIDNEY DISEASE, STAGE III (MODER 03/28/2018 ALFREDO CADENA Ot 793.5 NOSP (ABN) FINDINGS ON RADIOLOGICAL OT 03/28/2018 FERNY NICHOLSON MD Ot 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 03/28/2018 FERNY NICHOLSON MD Ot V72.84 EXAM PRE-OPERATIVE NOS 03/28/[address] MD Ot 174.9 MALIGN NEOPL BREAST NOS 03/28/[address] MD Ot V76.11 SCRN MAMMO-HIGH RISK PT, MALIGNANT NEOPL 03/28/[address] MD Ot 183.0 MALIGN NEOPL OVARY 03/28/2018 BAIMA, NALINI L SHEET METAL ERECTOR Ot 272.4 HYPERLIPIDEMIA NEC/NOS 03/28/2018 CORYMA, NALINI L SHEET METAL ERECTOR Ot 401.9 HYPERTENSION NOS 03/28/2018 CORYMA, NALINI L SHEET METAL ERECTOR Ot 414.9 CHR ISCHEMIC HRT DIS NOS 03/28/2018 BAIMA, NALINI L SHEET METAL ERECTOR Ot 437.9 CEREBROVASC DISEASE NOS 03/28/2018 BAIMA, NALINI L SHEET METAL ERECTOR Ot 272.4 HYPERLIPIDEMIA NEC/NOS 03/28/2018 CORYMA, NALINI L SHEET METAL ERECTOR Ot 401.9 HYPERTENSION NOS 03/28/2018 BAIMA, NALINI L SHEET METAL ERECTOR Ot 414.00 CORON ATHEROSCLER NOS TYPE VESSEL, NATIV 03/28/2018 JAZ, NALINI L SHEET METAL ERECTOR Ot 437.9 CEREBROVASC DISEASE NOS 03/28/[address] MD Ot 174.9 MALIGN NEOPL BREAST NOS 03/28/[address] MD Ot 183.0 MALIGN NEOPL OVARY 03/28/2018 FERNY NICHOLSON MD Ot 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 03/28/2018 FERNY NICHOLSON MD Ot V72.84 EXAM PRE-OPERATIVE NOS 03/28/[address] MD Ot C50.919 MALIGNANT NEOPLASM OF UNSP SITE OF UNSPE 03/28/[address] MD Ot C56.9 MALIGNANT NEOPLASM OF UNSPECIFIED OVARY 03/28/[address] MD Ot T85.698A [facility] COMPL OF INTERNAL PROSTH DEV/GRFT, 03/28/2018 TEODORO HERNANDEZ DO Ot Z01.818 ENCOUNTER FOR OTHER PREPROCEDURAL EXAMIN 03/28/[address] MD Ot C56.2 MALIGNANT NEOPLASM OF LEFT OVARY 03/28/[address] MD Ot Z85.3 PERSONAL HISTORY OF MALIGNANT NEOPLASM O 03/28/[address] MD Ot C50.919 MALIGNANT NEOPLASM OF UNSP SITE OF UNSPE 03/28/[address] MD, Ot C56.9 MALIGNANT NEOPLASM OF UNSPECIFIED OVARY 03/28/[address] MD Ot Z12.31 ENCNTR SCREEN MAMMOGRAM FOR MALIGNANT NE 03/28/[address] MD, Ot C56.1 MALIGNANT NEOPLASM OF RIGHT OVARY 03/28/[address] MD Ot N18.9 CHRONIC KIDNEY DISEASE, UNSPECIFIED 03/28/2018 ARIELLA PENALOZA DO Ot C55 MALIGNANT NEOPLASM OF UTERUS, PART UNSPE 03/28/2018 ARIELLA PENALOZA DO Ot C56.2 MALIGNANT NEOPLASM OF LEFT OVARY 03/28/2018 ARIELLA PENALOZA DO Ot E78.5 HYPERLIPIDEMIA, UNSPECIFIED 03/28/2018 ARIELLA PENALOZA DO Ot G47.33 OBSTRUCTIVE SLEEP APNEA (ADULT) (PEDIATR 03/28/2018 ARIELLA PENALOZA DO Ot I12.9 HYPERTENSIVE CHRONIC KIDNEY DISEASE W ST 03/28/2018 ARIELLA PENALOZA DO Ot I25.10 ATHSCL HEART DISEASE OF [place] CORONARY 03/28/2018 ARIELLA PENALOZA DO Ot N18.2 CHRONIC KIDNEY DISEASE, STAGE 2 (MILD) 03/28/2018 ARIELLA PENALOZA DO Ot T82.514A BREAKDOWN (MECHANICAL) OF INFUSION PAT 03/28/2018 ARIELLA PENALOZA DO Ot Z79.02 EDUCATIONAL TECHNOLOGY COORDINATOR (CURRENT) USE OF ANTITHROMBOTI 03/28/2018 ARIELLA PENALOZA DO Ot Z79.82 EDUCATIONAL TECHNOLOGY COORDINATOR (CURRENT) USE OF ASPIRIN 03/28/2018 ARIELLA PENALOZA DO Ot Z85.3 PERSONAL HISTORY OF MALIGNANT NEOPLASM O 03/28/2018 ARIELLA PENALOZA DO Ot C56.9 MALIGNANT NEOPLASM OF UNSPECIFIED OVARY 03/28/2018 ARIELLA PENALOZA DO Ot E78.5 HYPERLIPIDEMIA, UNSPECIFIED 03/28/2018 ARIELLA PENALOZA DO Ot G47.33 OBSTRUCTIVE SLEEP APNEA (ADULT) (PEDIATR 03/28/2018 ARIELLA PENALOZA DO Ot I12.9 HYPERTENSIVE CHRONIC KIDNEY DISEASE W ST 03/28/2018 ARIELLA PENALOZA DO Ot I25.10 ATHSCL HEART DISEASE OF [place] CORONARY 03/28/2018 ARIELLA PENALOZA DO Ot N18.2 CHRONIC KIDNEY DISEASE, STAGE 2 (MILD) 03/28/2018 ARIELLA PENALOZA DO Ot T82.514D BREAKDOWN (MECHANICAL) OF INFUSION PAT 03/28/2018 ARIELLA PENALOZA DO Ot Z79.02 [facility] (CURRENT) USE OF ANTITHROMBOTI 03/28/2018 ARIELLA PENALOZA DO Ot Z79.82 [facility] (CURRENT) USE OF ASPIRIN 03/28/2018 AREILLA PENALOZA DO Ot Z85.3 PERSONAL HISTORY OF MALIGNANT NEOPLASM O 03/28/[address] MD Ot C56.1 MALIGNANT NEOPLASM OF RIGHT OVARY 03/28/[address] MD Ot Z12.31 ENCNTR SCREEN MAMMOGRAM FOR MALIGNANT NE 03/28/2018 LAURA LIU FACC, MILKA FACP CCDS Ot E66.09 OTHER OBESITY DUE TO EXCESS CALORIES 03/28/2018 LAURA LIU FACC, MILKA FACP CCDS Ot E78.4 OTHER HYPERLIPIDEMIA 03/28/2018 LAURA LIU FACC, MILKA FACP CCDS Ot G47.33 OBSTRUCTIVE SLEEP APNEA (ADULT) (PEDIATR 03/28/2018 LAURA LIU FACC, MILKA FACP CCDS Ot I12.9 HYPERTENSIVE CHRONIC KIDNEY DISEASE W ST 03/28/2018 LAURA LIU FACC, MILKA FACP CCDS Ot I25.10 ATHSCL HEART DISEASE OF [place] CORONARY 03/28/2018 LAURA LIU FACC, MILKA FACP CCDS Ot I65.23 OCCLUSION AND STENOSIS OF BILATERAL REGAN 03/28/2018 LAURA LIU FACC, ALI FACP CCDS Ot N18.2 CHRONIC KIDNEY DISEASE, STAGE 2 (MILD) 03/28/2018 LAURA LIU FACC, ALI FACP CCDS Ot R07.89 OTHER CHEST PAIN 03/28/2018 LAURA LIU FACC, ALI FACP CCDS Ot E66.09 OTHER OBESITY DUE TO EXCESS CALORIES 03/28/2018 LAURA LIU FACC, MILKA FACP CCDS Ot E78.4 OTHER HYPERLIPIDEMIA 03/28/2018 LAURA LIU FACC, ALI FACP CCDS Ot G47.33 OBSTRUCTIVE SLEEP APNEA (ADULT) (PEDIATR 03/28/2018 LAURA LIU FACC, ALI FACP CCDS Ot I12.9 HYPERTENSIVE CHRONIC KIDNEY DISEASE W ST 03/28/2018 LAURA LIU FACC, ALI FACP CCDS Ot I25.10 ATHSCL HEART DISEASE OF [place] CORONARY 03/28/2018 LAURA LIU FACC, ALI FACP CCDS Ot I65.23 OCCLUSION AND STENOSIS OF [place]ATER[place] 03/28/2018 LAURA LIU FACC, ALI FACP CCDS Ot N18.2 CHRONIC KIDNEY DISEASE, STAGE 2 (MILD) 03/28/2018 LAURA LIU FACC, MILKA FACP CCDS Ot R07.89 OTHER CHEST PAIN 03/28/2018 ALFREDO CADENA Ot M85.852 OT DISRD OF BONE DENSITY AND STRUCTURE, 03/28/2018 ALFREDO CADENA Ot M85.88 OTH DISRD OF BONE DENSITY AND STRUCTURE, 03/28/2018 ALFREDO CADENA Ot Z13.820 ENCOUNTER FOR SCREENING FOR OSTEOPOROSIS 03/28/[address] MD Ot R92.0 MAMMOGRAPHIC MICROCALCIFICATION FOUND ON 03/28/[address] MD Ot Z12.31 ENCNTR SCREEN MAMMOGRAM FOR MALIGNANT NE 03/28/2018 CRISTY SILVER 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-C Ot D63.1 ANEMIA IN CHRONIC KIDNEY DISEASE 03/28/2018 CRISTY SILVER 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-C Ot E46 UNSPECIFIED PROTEIN-CALORIE MALNUTRITION 03/28/2018 CRISTY SILVER 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-C Ot E55.9 VITAMIN D DEFICIENCY, UNSPECIFIED 03/28/2018 CRISTY SILVER 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-C Ot E78.5 HYPERLIPIDEMIA, UNSPECIFIED 03/28/2018 CRISTY SILVER 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-C Ot E83.42 HYPOMAGNESEMIA 03/28/2018 CRISTY SILVER 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-C Ot E87.2 ACIDOSIS 03/28/2018 CRISTY SILVER 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-C Ot E87.3 ALKALOSIS 03/28/2018 CRISTY SILVER 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-C Ot 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, W S 03/28/2018 CRISTY SILVER AugustRosalio AGLLARDO-Sherine Ot I70.1 ATHEROSCLEROSIS OF RENAL ARTERY 03/28/2018 CRISTY SILVER NP-Sherine Ot N18.4 CHRONIC KIDNEY DISEASE, STAGE 4 (SEVERE) 03/28/2018 CRISTY SILVER AugustRosalio ARGUELLO Ot N25.81 SECONDARY HYPERPARATHYROIDISM OF RENAL O 03/28/2018 CRISTY SILVER Ot R73.01 IMPAIRED FASTING GLUCOSE 03/28/2018 CRISTY SILVER AugustRosalio GALLARDO-C Ot R80.9 PROTEINURIA, UNSPECIFIED 03/28/[address] MD, Ot R92.1 MAMMOGRAPHIC CALCIFCN FOUND ON DIAGNOSTI 03/28/[address] MD, Ot C56.1 MALIGNANT NEOPLASM OF RIGHT OVARY 03/28/[address] MD, Ot D05.11 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 03/28/[address] MD, Ot K76.0 FATTY (CHANGE OF) LIVER, NOT ELSEWHERE C 03/28/[address] MD Ot R91.8 OTHER NONSPECIFIC ABNORMAL FINDING OF KEVYN 03/28/[address] MD, Ot C56.1 MALIGNANT NEOPLASM OF RIGHT OVARY 03/28/[address] MD, Ot D05.11 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 03/28/[address] MD, Ot R91.1 SOLITARY PULMONARY NODULE 03/28/2018 KATIA PARR MD, Ot C55 MALIGNANT NEOPLASM OF UTERUS, PART UNSPE 03/28/2018 KATIA PARR MD, Ot C56.2 MALIGNANT NEOPLASM OF LEFT OVARY 03/28/2018 KATIA PARR MD, Ot 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 03/28/2018 KATIA PARR MD, Ot 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 03/28/2018 KATIA PARR MD, Ot C79.89 SECONDARY MALIGNANT NEOPLASM OF OTHER SP 03/28/2018 KATIA PARR MD, Ot D50.0 IRON DEFICIENCY ANEMIA SECONDARY TO BLOO 03/28/2018 KATIA PARR MD, Ot D63.1 ANEMIA IN CHRONIC KIDNEY DISEASE 03/28/2018 KATIA PARR MD, Ot D64.81 ANEMIA DUE TO ANTINEOPLASTIC CHEMOTHERAP 03/28/2018 KESHAV MD, MONTALVO Ot I25.10 ATHSCL HEART DISEASE OF [place] CORONARY 03/28/2018 KATIA PARR MD Ot K21.0 GASTRO-ESOPHAGEAL REFLUX DISEASE WITH ES 03/28/2018 KATIA PARR MD, Ot K44.9 DIAPHRAGMATIC HERNIA WITHOUT OBSTRUCTION 03/28/2018 KATIA PARR MD, Ot N18.9 CHRONIC KIDNEY DISEASE, UNSPECIFIED 03/28/2018 KATIA PARR MD Ot Z79.02 EDUCATIONAL TECHNOLOGY COORDINATOR (CURRENT) USE OF ANTITHROMBOTI 03/28/2018 KATIA PARR MD Ot Z79.82 [facility] (CURRENT) USE OF ASPIRIN 03/28/2018 KATIA PARR MD Ot Z85.3 PERSONAL HISTORY OF MALIGNANT NEOPLASM O 03/28/2018 KATIA PARR MD, Ot Z92.21 PERSONAL HISTORY OF ANTINEOPLASTIC CHEMO 03/28/2018 KATIA PARR MD Ot Z95.5 PRESENCE OF CORONARY ANGIOPLASTY IMPLANT 03/31/2018 KATIA PARR MD Ot C55 MALIGNANT NEOPLASM OF UTERUS, PART UNSPE 03/31/2018 KATIA PARR MD, Ot C56.2 MALIGNANT NEOPLASM OF LEFT OVARY 03/31/2018 KATIA PARR MD Ot 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 03/31/2018 KATIA PARR MD Ot 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 03/31/2018 KATIA PARR MD Ot C79.89 SECONDARY MALIGNANT NEOPLASM OF OTHER SP 03/31/2018 KATIA PARR MD Ot D50.0 IRON DEFICIENCY ANEMIA SECONDARY TO BLOO 03/31/2018 KATIA PARR MD Ot D63.1 ANEMIA IN CHRONIC KIDNEY DISEASE 03/31/2018 KATIA PARR MD, Ot D64.81 ANEMIA DUE TO ANTINEOPLASTIC CHEMOTHERAP 03/31/2018 KATIA PARR MD, Ot I25.10 ATHSCL HEART DISEASE OF [place] CORONARY 03/31/2018 KATIA PARR MD Ot K21.0 GASTRO-ESOPHAGEAL REFLUX DISEASE WITH ES 03/31/2018 KATIA PARR MD, Ot K44.9 DIAPHRAGMATIC HERNIA WITHOUT OBSTRUCTION 03/31/2018 KATIA PARR MD, Ot N18.9 CHRONIC KIDNEY DISEASE, UNSPECIFIED 03/31/2018 KATIA PARR MD Ot Z79.02 EDUCATIONAL TECHNOLOGY COORDINATOR (CURRENT) USE OF ANTITHROMBOTI 03/31/2018 KATIA PARR MD Ot Z79.82 [facility] (CURRENT) USE OF ASPIRIN 03/31/2018 KATIA PARR MD Ot Z85.3 PERSONAL HISTORY OF MALIGNANT NEOPLASM O 03/31/2018 KATIA PARR MD Ot Z92.21 PERSONAL HISTORY OF ANTINEOPLASTIC CHEMO 03/31/2018 KATIA PARR MD Ot Z95.5 PRESENCE OF CORONARY ANGIOPLASTY IMPLANT 03/31/2018 KATIA PARR MD Ot C55 MALIGNANT NEOPLASM OF UTERUS, PART UNSPE 03/31/2018 KATIA PARR MD Ot C56.2 MALIGNANT NEOPLASM OF LEFT OVARY 03/31/2018 KATIA PARR MD Ot 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 03/31/2018 KATIA PARR MD Ot 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 03/31/2018 KATIA PARR MD Ot C79.89 SECONDARY MALIGNANT NEOPLASM OF OTHER SP 03/31/2018 KATIA PARR MD Ot D50.0 IRON DEFICIENCY ANEMIA SECONDARY TO BLOO 03/31/2018 KATIA PARR MD Ot D63.1 ANEMIA IN CHRONIC KIDNEY DISEASE 03/31/2018 KATIA PARR MD Ot D64.81 ANEMIA DUE TO ANTINEOPLASTIC CHEMOTHERAP 03/31/2018 KATIA PARR MD Ot I25.10 ATHSCL HEART DISEASE OF [place] CORONARY 03/31/2018 KATIA PARR MD Ot K21.0 GASTRO-ESOPHAGEAL REFLUX DISEASE WITH ES 03/31/2018 KATIA PARR MD Ot K44.9 DIAPHRAGMATIC HERNIA WITHOUT OBSTRUCTION 03/31/2018 KATIA PARR MD, Ot N18.9 CHRONIC KIDNEY DISEASE, UNSPECIFIED 03/31/2018 KATIA PARR MD Ot Z79.02 [facility] (CURRENT) USE OF ANTITHROMBOTI 03/31/2018 KATIA PARR MD Ot Z79.82 EDUCATIONAL TECHNOLOGY COORDINATOR (CURRENT) USE OF ASPIRIN 03/31/2018 KATIA PARR MD Ot Z85.3 PERSONAL HISTORY OF MALIGNANT NEOPLASM O 03/31/2018 KATIA PARR MD Ot Z92.21 PERSONAL HISTORY OF ANTINEOPLASTIC CHEMO 03/31/2018 KATIA PARR MD Ot Z95.5 PRESENCE OF CORONARY ANGIOPLASTY IMPLANT 04/01/[address] MD, Ot C55 MALIGNANT NEOPLASM OF UTERUS, PART UNSPE 04/01/[address] MD, Ot C56.2 MALIGNANT NEOPLASM OF LEFT OVARY 04/01/[address] MD, Ot 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 04/01/2018 XUN MD, ROSARIO-ARCELIA Ot 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 04/01/[address] MD, Ot C79.89 SECONDARY MALIGNANT NEOPLASM OF OTHER SP 04/01/[address] MD, Ot D50.0 IRON DEFICIENCY ANEMIA SECONDARY TO BLOO 04/01/[address] MD, Ot D63.1 ANEMIA IN CHRONIC KIDNEY DISEASE 04/01/[address] MD, Ot D64.81 ANEMIA DUE TO ANTINEOPLASTIC CHEMOTHERAP 04/01/[address] MD, Ot I25.10 ATHSCL HEART DISEASE OF [place] CORONARY 04/01/[address] MD, Ot K21.0 GASTRO-ESOPHAGEAL REFLUX DISEASE WITH ES 04/01/[address] MD, Ot K44.9 DIAPHRAGMATIC HERNIA WITHOUT OBSTRUCTION 04/01/[address] MD, Ot N18.9 CHRONIC KIDNEY DISEASE, UNSPECIFIED 04/01/[address] MD, Ot Z79.02 [facility] (CURRENT) USE OF ANTITHROMBOTI 04/01/[address] MD, Ot Z79.82 EDUCATIONAL TECHNOLOGY COORDINATOR (CURRENT) USE OF ASPIRIN 04/01/[address] MD, Ot Z85.3 PERSONAL HISTORY OF MALIGNANT NEOPLASM O 04/01/[address] MD, Ot Z92.21 PERSONAL HISTORY OF ANTINEOPLASTIC CHEMO 04/01/[address] MD, Ot Z95.5 PRESENCE OF CORONARY ANGIOPLASTY IMPLANT 04/03/2018 CRISTY SILVER NP-C Ot D63.1 ANEMIA IN CHRONIC KIDNEY DISEASE 04/03/2018 CRISTY SILVER 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-C Ot E46 UNSPECIFIED PROTEIN-CALORIE MALNUTRITION 04/03/2018 CRISTY SILVER 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-C Ot E55.9 VITAMIN D DEFICIENCY, UNSPECIFIED 04/03/2018 CRISTY SILVER 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-C Ot E66.9 OBESITY, UNSPECIFIED 04/03/2018 CRISTY SILVER 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-C Ot E78.5 HYPERLIPIDEMIA, UNSPECIFIED 04/03/2018 CRISTY SILVER 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-C Ot E83.42 HYPOMAGNESEMIA 04/03/2018 CRISTY SILVER 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-C Ot E87.2 ACIDOSIS 04/03/2018 CRISTY SILVER 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-C Ot E87.3 ALKALOSIS 04/03/2018 CRISTY SILVER NP-Sherine Ot I12.9 HYPERTENSIVE CHRONIC KIDNEY DISEASE W ST 04/03/2018 CRISTY SILVER Ot I70.1 ATHEROSCLEROSIS OF RENAL ARTERY 04/03/2018 CRISTY SILVER NP-C Ot N18.4 CHRONIC KIDNEY DISEASE, STAGE 4 (SEVERE) 04/03/2018 CRISTY SILVER NP-C Ot N25.81 SECONDARY HYPERPARATHYROIDISM OF RENAL O 04/03/2018 CRISTY SILVER NP-Sherine Ot R73.01 IMPAIRED FASTING GLUCOSE 04/03/2018 CRISTY SILVER NP-C Ot R80.9 PROTEINURIA, UNSPECIFIED 04/21/[address] MD, Ot C55 MALIGNANT NEOPLASM OF UTERUS, PART UNSPE 04/21/[address] MD, Ot C56.2 MALIGNANT NEOPLASM OF LEFT OVARY 04/21/[address] MD, Ot 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 04/21/[address] MD, Ot 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 04/21/[address] MD, Ot C79.89 SECONDARY MALIGNANT NEOPLASM OF OTHER SP 04/21/[address] MD, Ot D50.0 IRON DEFICIENCY ANEMIA SECONDARY TO BLOO 04/21/[address] MD, Ot D63.1 ANEMIA IN CHRONIC KIDNEY DISEASE 04/21/[address] MD, Ot D64.81 ANEMIA DUE TO ANTINEOPLASTIC CHEMOTHERAP 04/21/[address] MD, Ot I25.10 ATHSCL HEART DISEASE OF [place] CORONARY 04/21/[address] MD, Ot K21.0 GASTRO-ESOPHAGEAL REFLUX DISEASE WITH ES 04/21/[address] MD, Ot K44.9 DIAPHRAGMATIC HERNIA WITHOUT OBSTRUCTION 04/21/[address] MD, Ot N18.9 CHRONIC KIDNEY DISEASE, UNSPECIFIED 04/21/[address] MD, Ot Z79.02 EDUCATIONAL TECHNOLOGY COORDINATOR (CURRENT) USE OF ANTITHROMBOTI 04/21/[address] MD, Ot Z79.82 EDUCATIONAL TECHNOLOGY COORDINATOR (CURRENT) USE OF ASPIRIN 04/21/[address] MD, Ot Z85.3 PERSONAL HISTORY OF MALIGNANT NEOPLASM O 04/21/[address] MD Ot Z92.21 PERSONAL HISTORY OF ANTINEOPLASTIC CHEMO 04/21/[address] MD Ot Z95.5 PRESENCE OF CORONARY ANGIOPLASTY IMPLANT 05/06/2018 KATIA PARR MD, Ot C54.1 MALIGNANT NEOPLASM OF ENDOMETRIUM 05/06/2018 KATIA PARR MD, Ot C56.1 MALIGNANT NEOPLASM OF RIGHT OVARY 05/06/2018 KATIA PARR MD Ot D05.11 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 05/06/2018 KATIA PARR MD Ot K80.20 CALCULUS OF GALLBLADDER W/O CHOLECYSTITI 05/06/2018 KATIA PARR MD Ot N32.89 OTHER SPECIFIED DISORDERS OF BLADDER 05/09/2018 KATIA PARR MD, Ot C54.1 MALIGNANT NEOPLASM OF ENDOMETRIUM 05/09/2018 KATIA PARR MD, Ot C56.1 MALIGNANT NEOPLASM OF RIGHT OVARY 05/09/2018 KATIA PARR MD Ot D05.11 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 05/09/2018 KATIA PARR MD Ot K80.20 CALCULUS OF GALLBLADDER W/O CHOLECYSTITI 05/09/2018 KATIA PARR MD Ot N32.89 OTHER SPECIFIED DISORDERS OF BLADDER 05/12/2018 KATIA PARR MD Ot C55 MALIGNANT NEOPLASM OF UTERUS, PART UNSPE 05/12/2018 KATIA PARR MD, Ot C56.2 MALIGNANT NEOPLASM OF LEFT OVARY 05/12/2018 KATIA PARR MD Ot 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 05/12/2018 KATIA PARR MD Ot 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 05/12/2018 KATIA PARR MD Ot C79.89 SECONDARY MALIGNANT NEOPLASM OF OTHER SP 05/12/2018 KATIA PARR MD Ot D50.0 IRON DEFICIENCY ANEMIA SECONDARY TO BLOO 05/12/2018 KATIA PARR MD Ot D63.1 ANEMIA IN CHRONIC KIDNEY DISEASE 05/12/2018 KATIA PARR MD Ot D64.81 ANEMIA DUE TO ANTINEOPLASTIC CHEMOTHERAP 05/12/2018 KATIA PARR MD, Ot I25.10 ATHSCL HEART DISEASE OF [place] CORONARY 05/12/2018 KATIA PARR MD Ot K21.0 GASTRO-ESOPHAGEAL REFLUX DISEASE WITH ES 05/12/2018 KATIA PARR MD Ot K44.9 DIAPHRAGMATIC HERNIA WITHOUT OBSTRUCTION 05/12/2018 KESHAV MD, MONTALVO Ot N18.9 CHRONIC KIDNEY DISEASE, UNSPECIFIED 05/12/2018 KATIA PARR MD, Ot Z51.11 ENCOUNTER FOR ANTINEOPLASTIC CHEMOTHERAP 05/12/2018 KATIA PARR MD, Ot Z79.02 [facility] (CURRENT) USE OF ANTITHROMBOTI 05/12/2018 KATIA PARR MD, Ot Z79.82 [facility] (CURRENT) USE OF ASPIRIN 05/12/2018 KATIA PARR MD, Ot Z85.3 PERSONAL HISTORY OF MALIGNANT NEOPLASM O 05/12/2018 KATIA PARR MD, Ot Z92.21 PERSONAL HISTORY OF ANTINEOPLASTIC CHEMO 05/12/2018 KATIA PARR MD Ot Z95.5 PRESENCE OF CORONARY ANGIOPLASTY IMPLANT 05/12/2018 KATIA PARR MD Ot C55 MALIGNANT NEOPLASM OF UTERUS, PART UNSPE 05/12/2018 KATIA APRR MD, Ot C56.2 MALIGNANT NEOPLASM OF LEFT OVARY 05/12/2018 KATIA PARR MD, Ot 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 05/12/2018 KATIA PARR MD, Ot 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 05/12/2018 KATIA PARR MD Ot C79.89 SECONDARY MALIGNANT NEOPLASM OF OTHER SP 05/12/2018 KATIA PARR MD, Ot D50.0 IRON DEFICIENCY ANEMIA SECONDARY TO BLOO 05/12/2018 KATIA PARR MD Ot D63.1 ANEMIA IN CHRONIC KIDNEY DISEASE 05/12/2018 KATIA PARR MD, Ot D64.81 ANEMIA DUE TO ANTINEOPLASTIC CHEMOTHERAP 05/12/2018 KATIA PARR MD, Ot I25.10 ATHSCL HEART DISEASE OF [place] CORONARY 05/12/2018 KATIA PARR MD Ot K21.0 GASTRO-ESOPHAGEAL REFLUX DISEASE WITH ES 05/12/2018 KATIA PARR MD, Ot K44.9 DIAPHRAGMATIC HERNIA WITHOUT OBSTRUCTION 05/12/2018 KATIA PARR MD, Ot N18.9 CHRONIC KIDNEY DISEASE, UNSPECIFIED 05/12/2018 KATIA PARR MD Ot Z51.11 ENCOUNTER FOR ANTINEOPLASTIC CHEMOTHERAP 05/12/2018 KATIA PARR MD, Ot Z79.02 [facility] (CURRENT) USE OF ANTITHROMBOTI 05/12/2018 KATIA PARR MD, Ot Z79.82 [facility] (CURRENT) USE OF ASPIRIN 05/12/2018 KATIA PARR MD, Ot Z85.3 PERSONAL HISTORY OF MALIGNANT NEOPLASM O 05/12/2018 KATIA PARR MD Ot Z92.21 PERSONAL HISTORY OF ANTINEOPLASTIC CHEMO 05/12/2018 KATIA PARR MD Ot Z95.5 PRESENCE OF CORONARY ANGIOPLASTY IMPLANT 05/19/2018 KATIA PARR MD Ot C54.1 MALIGNANT NEOPLASM OF ENDOMETRIUM 05/19/2018 KATIA PARR MD, Ot C56.1 MALIGNANT NEOPLASM OF RIGHT OVARY 05/19/2018 KATIA PARR MD Ot D05.11 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 05/19/2018 KATIA PARR MD Ot K80.20 CALCULUS OF GALLBLADDER W/O CHOLECYSTITI 05/19/2018 KATIA PARR MD Ot N32.89 OTHER SPECIFIED DISORDERS OF BLADDER 05/31/2018 KATIA PARR MD Ot C54.1 MALIGNANT NEOPLASM OF ENDOMETRIUM 05/31/2018 KATIA PARR MD, Ot C56.1 MALIGNANT NEOPLASM OF RIGHT OVARY 05/31/2018 KATIA PARR MD Ot D05.11 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 05/31/2018 KATIA PARR MD Ot K80.20 CALCULUS OF GALLBLADDER W/O CHOLECYSTITI 05/31/2018 KATIA PARR MD Ot N32.89 OTHER SPECIFIED DISORDERS OF BLADDER 06/07/[address] MD, Ot C55 MALIGNANT NEOPLASM OF UTERUS, PART UNSPE 06/07/[address] MD, Ot C56.2 MALIGNANT NEOPLASM OF LEFT OVARY 06/07/[address] MD, Ot 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 06/07/[address] MD, Ot 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 06/07/[address] MD, Ot C79.89 SECONDARY MALIGNANT NEOPLASM OF OTHER SP 06/07/[address] MD, Ot D50.0 IRON DEFICIENCY ANEMIA SECONDARY TO BLOO 06/07/[address] MD, Ot D63.1 ANEMIA IN CHRONIC KIDNEY DISEASE 06/07/[address] MD, Ot D64.81 ANEMIA DUE TO ANTINEOPLASTIC CHEMOTHERAP 06/07/[address] MD, Ot I25.10 ATHSCL HEART DISEASE OF [place] CORONARY 06/07/[address] MD, Ot K21.0 GASTRO-ESOPHAGEAL REFLUX DISEASE WITH ES 06/07/[address] MD, Ot K44.9 DIAPHRAGMATIC HERNIA WITHOUT OBSTRUCTION 06/07/[address] MD, Ot N18.9 CHRONIC KIDNEY DISEASE, UNSPECIFIED 06/07/[address] MD, Ot Z51.11 ENCOUNTER FOR ANTINEOPLASTIC CHEMOTHERAP 06/07/[address] MD, Ot Z79.02 EDUCATIONAL TECHNOLOGY COORDINATOR (CURRENT) USE OF ANTITHROMBOTI 06/07/[address] MD, Ot Z79.82 EDUCATIONAL TECHNOLOGY COORDINATOR (CURRENT) USE OF ASPIRIN 06/07/[address] MD, Ot Z85.3 PERSONAL HISTORY OF MALIGNANT NEOPLASM O 06/07/[address] MD, Ot Z92.21 PERSONAL HISTORY OF ANTINEOPLASTIC CHEMO 06/07/[address] MD, Ot Z95.5 PRESENCE OF CORONARY ANGIOPLASTY IMPLANT 06/15/[address] MD, Ot C55 MALIGNANT NEOPLASM OF UTERUS, PART UNSPE 06/15/[address] MD, Ot C56.2 MALIGNANT NEOPLASM OF LEFT OVARY 06/15/[address] MD, Ot 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 06/15/[address] MD, Ot 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 06/15/[address] MD, Ot C79.89 SECONDARY MALIGNANT NEOPLASM OF OTHER SP 06/15/[address] MD, Ot D50.0 IRON DEFICIENCY ANEMIA SECONDARY TO BLOO 06/15/[address] MD, Ot D63.1 ANEMIA IN CHRONIC KIDNEY DISEASE 06/15/[address] MD, Ot D64.81 ANEMIA DUE TO ANTINEOPLASTIC CHEMOTHERAP 06/15/[address] MD, Ot I25.10 ATHSCL HEART DISEASE OF [place] CORONARY 06/15/[address] MD, Ot K21.0 GASTRO-ESOPHAGEAL REFLUX DISEASE WITH ES 06/15/[address] MD, Ot K44.9 DIAPHRAGMATIC HERNIA WITHOUT OBSTRUCTION 06/15/[address] MD, Ot N18.9 CHRONIC KIDNEY DISEASE, UNSPECIFIED 06/15/[address] MD, Ot Z79.02 EDUCATIONAL TECHNOLOGY COORDINATOR (CURRENT) USE OF ANTITHROMBOTI 06/15/[address] MD, Ot Z79.82 EDUCATIONAL TECHNOLOGY COORDINATOR (CURRENT) USE OF ASPIRIN 06/15/[address] MD, Ot Z85.3 PERSONAL HISTORY OF MALIGNANT NEOPLASM O 06/15/[address] MD, Ot Z92.21 PERSONAL HISTORY OF ANTINEOPLASTIC CHEMO 06/15/[address] MD, Ot Z95.5 PRESENCE OF CORONARY ANGIOPLASTY IMPLANT 06/16/[address] MD, Ot C55 MALIGNANT NEOPLASM OF UTERUS, PART UNSPE 06/16/[address] MD, Ot C56.2 MALIGNANT NEOPLASM OF LEFT OVARY 06/16/[address] MD, Ot 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 06/16/[address] MD, Ot 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 06/16/[address] MD, Ot C79.89 SECONDARY MALIGNANT NEOPLASM OF OTHER SP 06/16/[address] MD, Ot D50.0 IRON DEFICIENCY ANEMIA SECONDARY TO BLOO 06/16/[address] MD, Ot D63.1 ANEMIA IN CHRONIC KIDNEY DISEASE 06/16/[address] MD, Ot D64.81 ANEMIA DUE TO ANTINEOPLASTIC CHEMOTHERAP 06/16/[address] MD, Ot I25.10 ATHSCL HEART DISEASE OF [place] CORONARY 06/16/[address] MD, Ot K21.0 GASTRO-ESOPHAGEAL REFLUX DISEASE WITH ES 06/16/[address] MD, Ot K44.9 DIAPHRAGMATIC HERNIA WITHOUT OBSTRUCTION 06/16/[address] MD, Ot N18.9 CHRONIC KIDNEY DISEASE, UNSPECIFIED 06/16/[address] MD, Ot Z79.02 EDUCATIONAL TECHNOLOGY COORDINATOR (CURRENT) USE OF ANTITHROMBOTI 06/16/[address] MD, Ot Z79.82 EDUCATIONAL TECHNOLOGY COORDINATOR (CURRENT) USE OF ASPIRIN 06/16/[address] MD, Ot Z85.3 PERSONAL HISTORY OF MALIGNANT NEOPLASM O 06/16/[address] MD, Ot Z92.21 PERSONAL HISTORY OF ANTINEOPLASTIC CHEMO 06/16/[address] MD, Ot Z95.5 PRESENCE OF CORONARY ANGIOPLASTY IMPLANT Procedures There is no data. Results Test Result Range Methicillin resistant Staphylococcus aureus (MRSA) screening culture - 07:25 Methicillin resistant Staphylococcus aureus (MRSA) screening culture NEG [facility] Automated blood complete blood count (hemogram) panel - 07/06/16 09:00 Blood leukocytes automated count (number/volume) 7.7 10*3/uL 4.3-11.0 Blood erythrocytes automated count (number/volume) 4.56 10*6/uL 4.35-5.85 Venous blood hemoglobin measurement (mass/volume) 13.5 g/dL 11.5-16.0 Blood hematocrit (volume fraction) 41 % 35-52 Automated erythrocyte mean corpuscular volume 91 [foz_us] 80-99 Automated erythrocyte mean corpuscular hemoglobin (mass per erythrocyte) 30 pg 25-34 Automated erythrocyte mean corpuscular hemoglobin concentration measurement ( mass/volume) 33 g/dL 32-36 Automated erythrocyte distribution width ratio 13.7 % 10.0-14.5 Automated blood platelet count (count/volume) 219 10*3/uL 130-400 Automated blood platelet mean volume measurement 9.5 [foz_us] 7.4-10.4 PT panel in platelet poor plasma by coagulation assay - 07/06/16 09:00 Prothrombin time (PT) in platelet poor plasma by coagulation assay 12.2 s 12.2-14.7 INR in platelet poor plasma or blood by coagulation assay 0.9 0.8-1.4 Activated partial thromboplastin time (aPTT) in platelet poor plasma bycoagulation assay - 07/06/16 09:00 Activated partial thromboplastin time (aPTT) in platelet poor plasma bycoagulation assay 28 s 24-35 Comprehensive metabolic panel - 07/06/16 09:00 Serum or plasma sodium measurement (moles/volume) 139 mmol/L 135-145 Serum or plasma potassium measurement (moles/volume) 4.0 mmol/L 3.6-5.0 Serum or plasma chloride measurement (moles/volume) 101 mmol/L 98-107 Carbon dioxide 27 mmol/L 21-32 Serum or plasma anion gap determination (moles/volume) 11 mmol/L 5-14 Serum or plasma urea nitrogen measurement (mass/volume) 15 mg/dL 7-18 Serum or plasma creatinine measurement (mass/volume) 1.33 mg/dL 0.60-1.30 Serum or plasma urea nitrogen/creatinine mass ratio 11 NRG Serum or plasma creatinine measurement with calculation of estimated glomerular filtration rate 40 NRG Serum or plasma glucose measurement (mass/volume) 137 mg/dL 70-105 Serum or plasma calcium measurement (mass/volume) 9.4 mg/dL 8.5-10.1 Serum or plasma total bilirubin measurement (mass/volume) 0.4 mg/dL 0.1-1.0 Serum or plasma alkaline phosphatase measurement (enzymatic activity/volume) 122 U/L 40-136 Serum or plasma aspartate aminotransferase measurement (enzymatic activity/ volume) 21 U/L 5-34 Serum or plasma alanine aminotransferase measurement (enzymatic activity/volume ) 23 U/L 0-55 Serum or plasma protein measurement (mass/volume) 7.6 g/dL 6.4-8.2 Serum or plasma albumin measurement (mass/volume) 4.3 g/dL 3.2-4.5 Methicillin resistant Staphylococcus aureus (MRSA) screening culture - 09:00 Methicillin resistant Staphylococcus aureus (MRSA) screening culture NEG NRG Automated blood complete blood count (hemogram) panel - 07/09/16 12:32 Blood leukocytes automated count (number/volume) 7.8 10*3/uL 4.3-11.0 Blood erythrocytes automated count (number/volume) 4.64 10*6/uL 4.35-5.85 Venous blood hemoglobin measurement (mass/volume) 14.0 g/dL 11.5-16.0 Blood hematocrit (volume fraction) 42 % 35-52 Automated erythrocyte mean corpuscular volume 91 [foz_us] 80-99 Automated erythrocyte mean corpuscular hemoglobin (mass per erythrocyte) 30 pg 25-34 Automated erythrocyte mean corpuscular hemoglobin concentration measurement ( mass/volume) 33 g/dL 32-36 Automated erythrocyte distribution width ratio 13.9 % 10.0-14.5 Automated blood platelet count (count/volume) 200 10*3/uL 130-400 Automated blood platelet mean volume measurement 9.4 [foz_us] 7.4-10.4 Comprehensive metabolic panel - 07/09/16 12:32 Serum or plasma sodium measurement (moles/volume) 137 mmol/L 135-145 Serum or plasma potassium measurement (moles/volume) 4.2 mmol/L 3.6-5.0 Serum or plasma chloride measurement (moles/volume) 98 mmol/L 98-107 Carbon dioxide 31 mmol/L 21-32 Serum or plasma anion gap determination (moles/volume) 8 mmol/L 5-14 Serum or plasma urea nitrogen measurement (mass/volume) 19 mg/dL 7-18 Serum or plasma creatinine measurement (mass/volume) 1.57 mg/dL 0.60-1.30 Serum or plasma urea nitrogen/creatinine mass ratio 12 NRG Serum or plasma creatinine measurement with calculation of estimated glomerular filtration rate 33 NR Serum or plasma glucose measurement (mass/volume) 98 mg/dL 70-105 Serum or plasma calcium measurement (mass/volume) 8.9 mg/dL 8.5-10.1 Serum or plasma total bilirubin measurement (mass/volume) 0.5 mg/dL 0.1-1.0 Serum or plasma alkaline phosphatase measurement (enzymatic activity/volume) 104 U/L 40-136 Serum or plasma aspartate aminotransferase measurement (enzymatic activity/ volume) 26 U/L 5-34 Serum or plasma alanine aminotransferase measurement (enzymatic activity/volume ) 29 U/L 0-55 Serum or plasma protein measurement (mass/volume) 7.5 g/dL 6.4-8.2 Serum or plasma albumin measurement (mass/volume) 4.2 g/dL 3.2-4.5 Methicillin resistant Staphylococcus aureus (MRSA) screening culture - 12:32 Methicillin resistant Staphylococcus aureus (MRSA) screening culture NEG [facility] Automated blood complete blood count (hemogram) panel - 10/06/17 11:28 Blood leukocytes automated count (number/volume) 5.8 10*3/uL 4.3-11.0 Blood erythrocytes automated count (number/volume) 4.45 10*6/uL 4.35-5.85 Venous blood hemoglobin measurement (mass/volume) 13.6 g/dL 11.5-16.0 Blood hematocrit (volume fraction) 40 % 35-52 Automated erythrocyte mean corpuscular volume 90 [foz_us] 80-99 Automated erythrocyte mean corpuscular hemoglobin (mass per erythrocyte) 31 pg 25-34 Automated erythrocyte mean corpuscular hemoglobin concentration measurement ( mass/volume) 34 g/dL 32-36 Automated erythrocyte distribution width ratio 14.1 % 10.0-14.5 Automated blood platelet count (count/volume) 200 10*3/uL 130-400 Automated blood platelet mean volume measurement 9.5 [foz_us] 7.4-10.4 Serum or plasma renal function panel (Na, K, Cl, CO2, BUN, Cr, glucose,Ca, phos , alb) - 10/06/17 11:28 Serum or plasma sodium measurement (moles/volume) 138 mmol/L 135-145 Serum or plasma potassium measurement (moles/volume) 4.5 mmol/L 3.6-5.0 Serum or plasma chloride measurement (moles/volume) 100 mmol/L 98-107 Carbon dioxide 28 mmol/L 21-32 Serum or plasma anion gap determination (moles/volume) 10 mmol/L 5-14 Serum or plasma urea nitrogen measurement (mass/volume) 20 mg/dL 7-18 Serum or plasma creatinine measurement (mass/volume) 1.38 mg/dL 0.60-1.30 Serum or plasma urea nitrogen/creatinine mass ratio 14 NRG Serum or plasma creatinine measurement with calculation of estimated glomerular filtration rate 38 NRG Serum or plasma glucose measurement (mass/volume) 99 mg/dL 70-105 Serum or plasma calcium measurement (mass/volume) 9.3 mg/dL 8.5-10.1 Serum or plasma albumin measurement (mass/volume) 4.1 g/dL 3.2-4.5 Serum or plasma phosphate measurement (mass/volume) 3.3 mg/dL 2.3-4.7 Magnesium - 10/06/17 11:28 Magnesium 2.1 mg/dL 1.8-2.4 Lipid 1996 panel - 10/06/17 11:28 Serum or plasma triglyceride measurement (mass/volume) 154 mg/dL <150 Serum or plasma cholesterol measurement (mass/volume) 177 mg/dL < 200 Serum or plasma cholesterol in HDL measurement (mass/volume) 42 mg/ dL 40-60 Cholesterol in LDL [mass/volume] in serum or plasma by direct assay 112 mg/dL 1-129 Serum or plasma cholesterol in VLDL measurement (mass/volume) 31 mg/ dL 5-40 Urine protein/creatinine mass ratio - 10/06/17 12:16 Urine protein measurement (mass/volume) 30 mg/dL 6-12 Urine creatinine measurement (mass/volume) 177 mg/dL 30- 125 Urine protein/creatinine mass ratio 0.17 NRG Automated blood complete blood count (hemogram) panel - 02/02/18 07:15 Blood leukocytes automated count (number/volume) 6.0 10*3/uL 4.3-11.0 Blood erythrocytes automated count (number/volume) 4.38 10*6/uL 4.35-5.85 Venous blood hemoglobin measurement (mass/volume) 13.0 g/dL 11.5-16.0 Blood hematocrit (volume fraction) 39 % 35-52 Automated erythrocyte mean corpuscular volume 89 [foz_us] 80-99 Automated erythrocyte mean corpuscular hemoglobin (mass per erythrocyte) 30 pg 25-34 Automated erythrocyte mean corpuscular hemoglobin concentration measurement ( mass/volume) 33 g/dL 32-36 Automated erythrocyte distribution width ratio 14.6 % 10.0-14.5 Automated blood platelet count (count/volume) 174 10*3/uL 130-400 Automated blood platelet mean volume measurement 9.5 [foz_us] 7.4-10.4 PT panel in platelet poor plasma by coagulation assay - 02/02/18 07:15 Prothrombin time (PT) in platelet poor plasma by coagulation assay 12.4 s 12.2-14.7 INR in platelet poor plasma or blood by coagulation assay 0.9 0.8-1.4 Activated partial thromboplastin time (aPTT) in platelet poor plasma bycoagulation assay - 02/02/18 07:15 Activated partial thromboplastin time (aPTT) in platelet poor plasma bycoagulation assay 25 s 24-35 Cancer antigen 27-29 measurement - 02/02/18 07:15 Cancer antigen 27-29 measurement TNP NRG Complete blood count (CBC) with automated white blood cell (WBC) differential - 03/28/18 12:26 Blood leukocytes automated count (number/volume) 5.4 10*3/uL 4.3-11.0 Blood erythrocytes automated count (number/volume) 3.33 10*6/uL 4.35-5.85 Venous blood hemoglobin measurement (mass/volume) 9.8 g/dL 11.5-16.0 Blood hematocrit (volume fraction) 31 % 35-52 Automated erythrocyte mean corpuscular volume 92 [foz_us] 80-99 Automated erythrocyte mean corpuscular hemoglobin (mass per erythrocyte) 29 pg 25-34 Automated erythrocyte mean corpuscular hemoglobin concentration measurement ( mass/volume) 32 g/dL 32-36 Automated erythrocyte distribution width ratio 16.5 % 10.0-14.5 Automated blood platelet count (count/volume) 176 10*3/uL 130-400 Automated blood platelet mean volume measurement 9.8 [foz_us] 7.4-10.4 Automated blood neutrophils/100 leukocytes 64 % 42-75 Automated blood lymphocytes/100 leukocytes 24 % 12-44 Blood monocytes/100 leukocytes 12 % 0-12 Automated blood eosinophils/100 leukocytes 0 % 0-10 Automated blood basophils/100 leukocytes 0 % 0-10 Blood neutrophils automated count (number/volume) 3.5 10*3 1.8-7.8 Blood lymphocytes automated count (number/volume) 1.3 10*3 1.0-4.0 Blood monocytes automated count (number/volume) 0.6 10*3 0.0-1.0 Automated eosinophil count 0.0 10*3/uL 0.0-0.3 Automated blood basophil count (count/volume) 0.0 10*3/uL 0.0-0.1 Serum or plasma renal function panel (Na, K, Cl, CO2, BUN, Cr, glucose,Ca, phos , alb) - 03/28/18 12:26 Serum or plasma sodium measurement (moles/volume) 141 mmol/L 135-145 Serum or plasma potassium measurement (moles/volume) 4.0 mmol/L 3.6-5.0 Serum or plasma chloride measurement (moles/volume) 101 mmol/L 98-107 Carbon dioxide 32 mmol/L 21-32 Serum or plasma anion gap determination (moles/volume) 8 mmol/L 5-14 Serum or plasma urea nitrogen measurement (mass/volume) 9 mg/dL 7-18 Serum or plasma creatinine measurement (mass/volume) 1.18 mg/dL 0.60-1.30 Serum or plasma urea nitrogen/creatinine mass ratio 8 NRG Serum or plasma creatinine measurement with calculation of estimated glomerular filtration rate 46 NRG Serum or plasma glucose measurement (mass/volume) 98 mg/dL 70-105 Serum or plasma calcium measurement (mass/volume) 9.1 mg/dL 8.5-10.1 Serum or plasma albumin measurement (mass/volume) 3.5 g/dL 3.2-4.5 Serum or plasma phosphate measurement (mass/volume) 2.9 mg/dL 2.3-4.7 Magnesium - 03/28/18 12:26 Magnesium 1.5 mg/dL 1.8-2.4 Serum or plasma intact pararthyroid hormone measurement (mass/volume) - 07/16/ 18 12:26 Serum or plasma intact parathyroid hormone measurement (mass/volume) 102.7 pg/mL 9.0-77.0 Bio-intact parathyroid hormone (PTH) measurement with calcium 8.9 % 8.5-10.5 VITAMIN D 25-HYDROXY - 03/28/18 12:26 VITAMIN D 25-HYDROXY (TOTAL) 47.0 % 30.0-100.0 Urine protein/creatinine mass ratio - 03/28/18 13:07 Urine protein measurement (mass/volume) 30 mg/dL 6-12 Urine creatinine measurement (mass/volume) 178 mg/dL 30- 125 Urine protein/creatinine mass ratio 0.17 NRG Complete blood count (CBC) with automated white blood cell (WBC) differential - 06/25/18 01:06 Blood leukocytes automated count (number/volume) 4.2 10*3/uL 4.3-11.0 Blood erythrocytes automated count (number/volume) 2.34 10*6/uL 4.35-5.85 Venous blood hemoglobin measurement (mass/volume) 7.5 g/dL 11.5-16.0 Blood hematocrit (volume fraction) 23 % 35-52 Automated erythrocyte mean corpuscular volume 98 [foz_us] 80-99 Automated erythrocyte mean corpuscular hemoglobin (mass per erythrocyte) 32 pg 25-34 Automated erythrocyte mean corpuscular hemoglobin concentration measurement ( mass/volume) 33 g/dL 32-36 Automated erythrocyte distribution width ratio 20.9 % 10.0-14.5 Automated blood platelet count (count/volume) 48 10*3/uL 130-400 Automated blood platelet mean volume measurement 11.1 [foz_us] 7.4-10.4 Automated blood neutrophils/100 leukocytes 61 % 42-75 Automated blood lymphocytes/100 leukocytes 26 % 12-44 Blood monocytes/100 leukocytes 10 % 0-12 Automated blood eosinophils/100 leukocytes 2 % 0-10 Automated blood basophils/100 leukocytes 0 % 0-10 Blood neutrophils automated count (number/volume) 2.5 10*3 1.8-7.8 Blood lymphocytes automated count (number/volume) 1.1 10*3 1.0-4.0 Blood monocytes automated count (number/volume) 0.4 10*3 0.0-1.0 Automated eosinophil count 0.1 10*3/uL 0.0-0.3 Automated blood basophil count (count/volume) 0.0 10*3/uL 0.0-0.1 Blood lactic acid measurement (moles/volume) - 06/25/18 01:06 Blood lactic acid measurement (moles/volume) 2.03 mmol/L 0.50-2.00 Comprehensive metabolic panel - 06/25/18 01:06 Serum or plasma sodium measurement (moles/volume) 138 mmol/L 135-145 Serum or plasma potassium measurement (moles/volume) 3.4 mmol/L 3.6-5.0 Serum or plasma chloride measurement (moles/volume) 98 mmol/L 98-107 Carbon dioxide 22 mmol/L 21-32 Serum or plasma anion gap determination (moles/volume) 18 mmol/L 5-14 Serum or plasma urea nitrogen measurement (mass/volume) 20 mg/dL 7-18 Serum or plasma creatinine measurement (mass/volume) 2.71 mg/dL 0.60-1.30 Serum or plasma urea nitrogen/creatinine mass ratio 7 NRG Serum or plasma creatinine measurement with calculation of estimated glomerular filtration rate 18 NRG Serum or plasma glucose measurement (mass/volume) 117 mg/dL 70-105 Serum or plasma calcium measurement (mass/volume) 9.4 mg/dL 8.5-10.1 Serum or plasma total bilirubin measurement (mass/volume) 0.8 mg/dL 0.1-1.0 Serum or plasma alkaline phosphatase measurement (enzymatic activity/volume) 103 U/L 40-136 Serum or plasma aspartate aminotransferase measurement (enzymatic activity/ volume) 25 U/L 5-34 Serum or plasma alanine aminotransferase measurement (enzymatic activity/volume ) 16 U/L 0-55 Serum or plasma protein measurement (mass/volume) 7.6 g/dL 6.4-8.2 Serum or plasma albumin measurement (mass/volume) 3.8 g/dL 3.2-4.5 CALCIUM CORRECTED 9.6 mg/dL 8.5-10.1 Serum or plasma C reactive protein measurement (mass/volume) - 06/25/18 01:06 Serum or plasma C reactive protein measurement (mass/volume) 3.15 mg /dL 0.00-0.50 Influenza virus A and B antigen detection - 06/25/18 01:47 FLU RESULT NEGATIVE FOR INFLUENZA A AND B ANTIGENS BY IA NRG Complete urinalysis with reflex to culture - 06/25/18 02:20 Urine color determination YELLOW NRG Urine clarity determination SLIGHTLY CLOUDY NRG Urine pH measurement by test strip 7 5-9 Specific gravity of urine by test strip 1.010 1.016- 1.022 Urine protein assay by test strip, semi-quantitative 1+ NEGATIVE Urine glucose detection by automated test strip NEGATIVE NEGATIVE Erythrocytes detection in urine sediment by light microscopy 1+ NEGATIVE Urine ketones detection by automated test strip 1+ NEGATIVE Urine nitrite detection by test strip NEGATIVE NEGATIVE Urine total bilirubin detection by test strip NEGATIVE NEGATIVE Urine urobilinogen measurement by automated test strip (mass/volume) 1 mg/dL NORMAL Urine leukocyte esterase detection by dipstick 3+ NEGATIVE Automated urine sediment erythrocyte count by microscopy (number/high power field) NONE NRG Automated urine sediment leukocyte count by microscopy (number/high power field ) > [HPF] NRG Bacteria detection in urine sediment by light microscopy LARGE NRG Squamous epithelial cells detection in urine sediment by light microscopy 0-2 NRG Crystals detection in urine sediment by light microscopy NONE NRG Casts detection in urine sediment by light microscopy NONE NRG Mucus detection in urine sediment by light microscopy NEGATIVE NRG Complete urinalysis with reflex to culture YES NRG Serum or plasma lactate measurement (moles/volume) - 06/25/18 03:36 Serum or plasma lactate measurement (moles/volume) 0.77 mmol/L 0.50-2.00 Complete blood count (CBC) with automated white blood cell (WBC) differential - 06/25/18 07:08 Blood leukocytes automated count (number/volume) 3.7 10*3/uL 4.3-11.0 Blood erythrocytes automated count (number/volume) 2.09 10*6/uL 4.35-5.85 Venous blood hemoglobin measurement (mass/volume) 6.7 g/dL 11.5-16.0 Blood hematocrit (volume fraction) 21 % 35-52 Automated erythrocyte mean corpuscular volume 100 [foz_us] 80-99 Automated erythrocyte mean corpuscular hemoglobin (mass per erythrocyte) 32 pg 25-34 Automated erythrocyte mean corpuscular hemoglobin concentration measurement ( mass/volume) 32 g/dL 32-36 Automated erythrocyte distribution width ratio 20.9 % 10.0-14.5 Automated blood platelet count (count/volume) 40 10*3/uL 130-400 Automated blood platelet mean volume measurement 10.0 [foz_us] 7.4-10.4 Automated blood neutrophils/100 leukocytes 56 % 42-75 Automated blood lymphocytes/100 leukocytes 30 % 12-44 Blood monocytes/100 leukocytes 12 % 0-12 Automated blood eosinophils/100 leukocytes 2 % 0-10 Automated blood basophils/100 leukocytes 0 % 0-10 Blood neutrophils automated count (number/volume) 2.1 10*3 1.8-7.8 Blood lymphocytes automated count (number/volume) 1.1 10*3 1.0-4.0 Blood monocytes automated count (number/volume) 0.4 10*3 0.0-1.0 Automated eosinophil count 0.1 10*3/uL 0.0-0.3 Automated blood basophil count (count/volume) 0.0 10*3/uL 0.0-0.1 Encounters ACCT No. Visit Date/Time Discharge Status Pt. Type Provider Facility Loc./Unit Complaint [id number] 06/16/2018 11:06:00 06/16/2018 23:59:[address] MD [facility] ONC [id number] 06/09/2018 14:08:00 06/16/2018 11:02:[address]RE[address] MD [facility] ONC [id number] 06/10/2018 00:08:00 06/10/2018 23:59:[address] MD [facility] ONC [id number] 05/05/2018 11:54:00 05/12/2018 15:09:00 DIS Outpatient KATIA PARR MD [facility] ONC [id number] 05/05/2018 11:14:00 05/05/2018 23:59:59 CLS Outpatient KATIA PARR MD [facility] RAD ENDOMETRIAL,OVARIAN AND BREAST CA [id number] 04/07/2018 12:26:00 04/07/2018 23:59:[address] MD [facility] ONC [id number] 03/24/2018 12:10:00 03/31/2018 15:20:00 DIS Outpatient KATIA PARR MD [facility] ONC [id number] 03/28/2018 11:45:00 03/28/2018 23:59:59 CLS Outpatient CRISTY SILVER 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-C [facility] LAB METABOLIC ACIDOSIS, HYPERLIPIDEMIA [id number] 03/03/2018 13:59:00 03/11/2018 09:00:[address] MD [facility] ONC [id number] 02/02/2018 07:32:00 02/02/2018 23:59:[address] MD [facility] SDC D05.11 BREAST CANCER [id number] 01/17/2018 11:34:00 01/17/2018 23:59:[address] MD [facility] RAD C56.1 OVARIAN CANCER D05.11 BREAST CANCER [id number] 01/13/2018 08:52:00 01/13/2018 23:59:[address] MD [facility] RAD R92.8 ABNORMAL MAMMOGRAM [id number] 12/22/2017 11:15:00 12/22/2017 23:59:[address] MD [facility] RAD SCREENING [id number] 10/06/2017 11:10:00 10/06/2017 23:59:59 CLS Outpatient CRISTY SILVER NP-C [facility] LAB E87.2,E78.5 [id number] 09/21/2017 10:51:00 09/27/2017 00:01:[address]NA [address] MD [facility] ONC [id number] 08/26/2017 11:29:00 08/26/2017 23:59:59 CLS Outpatient ALFREDO CADENA [facility] RAD SCREENING FOR OSTEOPOROSIS Z13.820,M81.0 [id number] 03/30/2017 10:43:00 04/05/2017 00:01:[address] MD [facility] ONC [id number] 01/19/2017 11:40:00 01/19/2017 23:59:59 CLS Outpatient MILKA SANCHEZ MD, FACC, FACP CCDS [facility] CARD R07.89,I25.10 ,I10 [id number] 01/07/2017 14:05:00 01/07/2017 23:59:59 CLS Outpatient LAURA LIU FACSherine, MILKA FACP CCDS [facility] CARD R07.89,I65.23 ,I25.10 [id number] 12/21/2016 12:01:00 12/21/2016 23:59:[address] MD [facility] RAD SCREENING [id number] 12/08/2016 12:55:00 12/21/2016 00:01:[address]NA [address]RE[address] MD [facility] ONC [id number] 09/15/2016 09:43:00 09/21/2016 00:01:[address] MD [facility] ONC [id number] 09/09/2016 12:29:00 09/09/2016 23:59:[address] MD [facility] RAD OVARIAN CA [id number] 07/09/2016 12:04:00 07/09/2016 23:59:59 CLS Outpatient ARIELLA PENALOZA DO [facility] CATH MALFUNCTIONING PORT [id number] 07/06/2016 08:22:00 07/06/2016 23:59:59 CLS Outpatient ARIELLA PENALOZA DO D [facility] CATH MALFUNCTIONING PORT [id number] 06/18/2016 07:09:00 06/18/2016 13:32:00 DIS Outpatient ARIELLA PENALOZA DO D [facility] SDC OVARIAN CANCER [id number] 06/01/2016 09:26:00 06/17/2016 14:07:[address] MD [facility] ONC [id number] 06/16/2016 06:01:00 06/16/2016 13:51:00 DIS Outpatient ARIELLA PENALOZA DO D [facility] PREOP OVARIAN CANCER [id number] 06/01/2016 09:56:00 06/01/2016 23:59:[address] MD [facility] RAD OVARIAN CA [id number] 04/28/2016 10:58:00 05/04/2016 00:01:[address]NA [address]RE[address] MD [facility] ONC [id number] 11/12/2015 11:07:00 12/23/2015 00:01:[address] MD [facility] ONC [id number] 11/15/2015 11:43:00 11/15/2015 23:59:[address] MD [facility] RAD SCREENING [id number] 11/08/2015 11:22:00 11/08/2015 23:59:[address] MD [facility] RAD REGAGING OVARIAN CA [id number] 11/07/2015 10:10:00 11/07/2015 23:59:[address] MD [facility] RAD RESTAGING OF OVARIAN CANCER [id number] 07/22/2015 12:47:00 09/22/2015 00:01:[address]NA [address] MD [facility] ONC [id number] 08/29/2015 10:38:00 08/29/2015 14:30:00 DIS Outpatient TEODORO HERNANDEZ DO [facility] SDC HX SALINAS'S DISEASE [id number] 08/27/2015 05:50:00 08/27/2015 23:59:59 CLS Outpatient TEODORO HERNANDEZ DO [facility] PREOP HX BARRETTS DISEASE [id number] 07/09/2015 10:20:00 07/09/2015 23:59:[address] MD [facility] RAD [id number] 07/04/2015 09:55:00 07/04/2015 23:59:[address] MD [facility] RAD RESTAGING BREAST/OVARIAN CA [id number] 05/21/2015 11:25:00 06/12/2015 00:01:[address]NA [address] MD [facility] ONC [id number] 06/06/2015 07:16:00 06/06/2015 09:45:00 DIS Outpatient FERNY NICHOLSON MD [facility] SDC HX OF BARRETS ESOPHAGITIS [id number] 06/04/2015 05:43:00 06/04/2015 23:59:59 CLS Outpatient FERNY NICHOLSON MD [facility] PREOP HX OF BARRETS ESOPHAGITIS [id number] 04/09/2015 08:58:00 04/15/2015 00:01:[address]NA [address] MD [facility] ONC [id number] 04/03/2015 10:27:00 04/03/2015 23:59:[address] MD [facility] RAD RESTAGING BREAST,OVARIAN CA [id number] 02/25/2015 11:56:00 02/25/2015 23:59:59 CLS Outpatient NALINI SEBASTIANP [facility] CARD CAD,HTN,HLP [id number] 02/01/2015 11:08:00 02/01/2015 23:59:59 CLS Outpatient NALINI SEBASTIAN [facility] CARD CAD,HTN,HLP [id number] 12/28/2014 12:00:00 12/31/2014 00:01:[address] MD [facility] ONC [id number] 12/28/2014 13:47:00 12/28/2014 23:59:[address] MD [facility] RAD OVARIAN CANCER [id number] 10/25/2014 10:06:00 10/25/2014 23:59:[address] MD [facility] RAD SCREENING [id number] 08/21/2014 10:42:00 09/27/2014 00:01:[address]NA [address] MD [facility] ONC [id number] 05/17/2014 07:09:00 05/17/2014 23:59:59 CLS Outpatient FERNY NICHOLSON MD [facility] SDC BARRX [id number] 05/16/2014 07:30:00 05/16/2014 23:59:59 CLS Outpatient FERNY NICHOLSON MD [facility] PREOP BARRX [id number] 04/09/2014 07:58:00 04/09/2014 11:27:00 DIS Outpatient FERNY NICHOLSON MD [facility] SDC GERD [id number] 02/19/2014 11:25:00 04/08/2014 00:01:[address] MD [facility] ONC [id number] 04/04/2014 08:16:00 04/04/2014 23:59:59 CLS Outpatient FERNY NICHOLSON MD [facility] PREOP GERD [id number] 03/07/2014 08:15:00 03/07/2014 23:59:59 CLS Outpatient ALFREDO CADENA [facility] RAD CHRONIC KIDNEY DISEASE STAGE III [id number] 12/07/2013 08:07:00 12/07/2013 11:45:00 DIS Outpatient FERNY NICHOLSON MD [facility] GERD [id number] 12/06/2013 07:25:00 12/06/2013 23:59:59 CLS Outpatient FERNY NICHOLSON MD [facility] PREOP GERD [id number] 11/15/2013 12:54:00 11/21/2013 00:01:[address] MD [facility] ONC [id number] 10/24/2013 09:14:00 10/24/2013 23:59:[address] MD [facility] RAD SCREENING [id number] 10/05/2013 07:50:00 10/05/2013 13:25:00 DIS Outpatient FERNY NICHOLSON MD [facility] FOLLOW UP REFLUX ESOPHAGITIS [id number] 10/04/2013 07:19:00 10/04/2013 23:59:59 CLS Outpatient FERNY NICHOLSON MD [facility] PREOP FOLLOW UP REFLUX ESOPHAGITIS [id number] 07/12/2013 14:07:00 08/01/2013 00:01:[address] MD [facility] ONC [id number] 06/22/2013 06:38:00 06/22/2013 11:25:00 DIS Outpatient FERNY NICHOLSON MD [facility] SDC FOLLOW UP REFLUX ESOPHAGITIS [id number] 06/21/2013 07:12:00 06/21/2013 23:59:59 CLS Outpatient FERNY NICHOLSON MD [facility] PREOP FOLLOW UP REFLUX ESOPHAGITIS [id number] 06/13/2013 08:31:00 06/13/2013 23:59:[address] MD [facility] RAD LESION ON C/SP, ABN PET SCAN [id number] 03/29/2013 14:02:00 04/17/2013 00:01:[address] MD [facility] ONC [id number] 03/30/2013 09:10:00 03/30/2013 12:15:00 DIS Outpatient FERNY NICHOLSON MD [facility] SDC DYSPHAGIA [id number] 03/29/2013 07:23:00 03/29/2013 23:59:59 CLS Outpatient FERNY NICHOLSON MD [facility] PREOP DYSPHAGIA [id number] 03/09/2013 08:13:00 03/09/2013 12:08:00 DIS Outpatient FERNY NICHOLSON MD [facility] SDC ANEMIA [id number] 03/08/2013 09:38:00 03/08/2013 23:59:59 CLS Outpatient FERNY NICHOLSON MD [facility] PREOP ANEMIA [id number] 02/14/2013 10:09:00 02/14/2013 23:59:[address] MD [facility] RAD OVARIAN CA,FOLLOW-UP [id number] 01/16/2013 08:00:00 01/17/2013 13:10:00 DIS Outpatient SUZIE ZUÑIGA MD [facility] CATH ABN STRESS TEST,SOB,HTN [id number] 06/25/2018 01:17:00 Document Registration [id number] 10/25/2014 10:06:00 Document Registration [id number] 12/16/2012 08:29:00 Document Registration [id number] 12/13/2012 10:07:00 Document Registration [id number] 11/28/2012 08:18:00 Document Registration [id number] 11/10/2012 13:09:00 Document Registration [id number] 10/24/2012 10:52:00 Document Registration [id number] 07/25/2012 10:04:00 Document Registration [id number] 04/26/2012 09:40:00 Document Registration [id number] 04/04/2012 10:08:00 Document Registration [id number] 03/17/2012 06:41:00 Document Registration [id number] 03/15/2012 07:59:00 Document Registration [id number] 12/14/2011 12:50:00 Document Registration [id number] 10/23/2011 09:51:00 Document Registration [id number] 10/20/2011 11:55:00 Document Registration [id number] 10/15/2011 09:59:00 Document Registration [id number] 09/22/2011 12:24:00 Document Registration [id number] 07/03/2011 05:35:00 Document Registration [id number] 07/02/2011 12:26:00 Document Registration [id number] 06/30/2011 10:44:00 Document Registration [id number] 05/05/2011 09:44:00 Document Registration [id number] 04/14/2011 13:03:00 Document Registration [id number] 04/09/2011 12:05:00 Document Registration [id number] 03/25/2011 14:39:00 Document Registration [id number] 10/22/2010 13:35:00 Document Registration [id number] 09/30/2010 14:32:00 Document Registration [id number] 07/09/2010 07:09:00 Document Registration [id number] 07/02/2010 12:56:00 Document Registration [id number] 06/04/2010 13:44:00 Document Registration [id number] 12/11/2009 13:36:00 Document Registration [id number] 10/18/2009 10:08:00 Document Registration [id number] 06/12/2009 10:28:00 Document Registration [id number] 06/11/2009 10:28:00 Document Registration [id number] 06/06/2015 08:46:25 ACT Document Registration [id number] 12/16/2017 11:00:00 12/16/2017 23:59:59 CLS Outpatient AISHWARYA MONTANO APRN [facility]
[2018-06-25 15:30] VITALS: BP 129/77
[2018-06-25 19:25] VITALS: BP 130/83
[2018-06-25] MEDS: BRIMONIDINE 0.2% (ALPHAGAN) OPHTH SOLN 5 ML BTL OU SCH (20:27)
[2018-06-25] MEDS: TIMOLOL MALEATE 0.5% 5 ML (TIMOPTIC) BTL OU SCH (20:34)
[2018-06-25] MEDS ORDERED: NON-FORMULARY MEDICATION 1 EA EA (Brimonidine Tartrate/Timolol (Combigan Eye Drops) 1 DROP OU SCH (21:00)
[2018-06-25 23:46] VITALS: BP 135/82
[2018-06-26] MEDS: NS IV 1000 ML 1,000 ML IV SCH ×2 (00:07→14:53)
[2018-06-26 04:12] VITALS: BP 146/62
[2018-06-26 06:22] LABS: BASOPHILS % (AUTO) 0 % (0-10); EOSINOPHILS # (AUTO) 0.2 10^3/uL (0.0-0.3); EOSINOPHILS % (AUTO) 4 % (0-10); HEMATOCRIT 21 % (35-52); LYMPHOCYTES # (AUTO) 1.3 X 10^3 (1.0-4.0); LYMPHOCYTES % (AUTO) 35 % (12-44); MEAN CORPUSCULAR HEMOGLOBIN 32 PG (25-34); MEAN CORPUSCULAR HGB CONC 32 G/DL (32-36); MEAN CORPUSCULAR VOLUME 100 FL (80-99); MEAN PLATELET VOLUME 10.7 FL (7.4-10.4); MONOCYTES # (AUTO) 0.4 X 10^3 (0.0-1.0); MONOCYTES % (AUTO) 10 % (0-12); NEUTROPHILS # (AUTO) 1.9 X 10^3 (1.8-7.8); NEUTROPHILS % (AUTO) 51 % (42-75); PLATELET COUNT 42 10^3/uL (130-400); RED CELL DISTRIBUTION WIDTH 21.2 % (10.0-14.5); WHITE BLOOD COUNT 3.7 10^3/uL (4.3-11.0)
[2018-06-26 06:38] LABS: HEMOGLOBIN 6.7 G/DL (11.5-16.0)
[2018-06-26 06:50] LABS: CREATININE SERUM 1.95 MG/DL (0.60-1.30); POTASSIUM 3.2 MMOL/L (3.6-5.0)
[2018-06-26 06:51] LABS: ALBUMIN 3.4 GM/DL (3.2-4.5); BILIRUBIN,TOTAL 0.6 MG/DL (0.1-1.0); CALCIUM 8.8 MG/DL (8.5-10.1); TOTAL PROTEIN 6.9 GM/DL (6.4-8.2)
[2018-06-26 08:00] VITALS: BP 146/62
[2018-06-26] MEDS ORDERED: CLOPIDOGREL BISULFATE 75 MG PO SCH (09:00)
[2018-06-26] MEDS: SERTRALINE 100 MG (ZOLOFT) TAB PO SCH (09:22)
[2018-06-26] MEDS: BRIMONIDINE 0.2% (ALPHAGAN) OPHTH SOLN 5 ML BTL OU SCH ×3 (09:22→20:17)
[2018-06-26] MEDS: CEFEPIME 2 GM/NS 50 ML IVPB IV SCH ×2 (09:22)
[2018-06-26] MEDS: CLOPIDOGREL 75 MG (PLAVIX) TABLET PO SCH (09:22)
[2018-06-26] MEDS: TIMOLOL MALEATE 0.5% 5 ML (TIMOPTIC) BTL OU SCH ×2 (09:22→20:17)
[2018-06-26] MEDS ORDERED: KCL 20 MEQ TAB (K-DUR) PO NR (09:30)
--- NOTE | 2018-06-26 10:53 | Progress Note (SOAP) ---
Subjective Subjective/Events-last exam Patient states that she is ready to go home. She is upset at having to take her chemo medication and states that it is causing her to have mouth sores and she does not want to take it any more. Tolerating PO diet. Has appt with Onc on . Review of Systems Date Seen by Provider: Jun 26, 2018 Time Seen by Provider: 10:45 General: Malaise Pulmonary: Dyspnea; No Cough Cardiovascular: No: Chest Pain, Palpitations Gastrointestinal: No: Nausea, Vomiting 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: Frequency Neurological: Confusion Focused Exam Lactate Level 06/25/18 01:06: Lactic Acid Level 2.03*H 06/25/18 03:36: Lactic Acid Level 0.77 Objective Exam Last Set of Vital Signs Vital Signs Date Time Temp Pulse Resp B/P (MAP) Pulse Ox O2 Delivery O2 Flow Rate FiO2 06/26/18 08:00 97.1 98 20 146/62 (90) 99 Room Air 06/25/18 04:43 21 06/25/18 04:29 2.00 Capillary Refill : Less Than 3 SecondsLess Than 3 Seconds I&O Intake and Output 06/26/18 00:00 Intake Total 1570 ml Output Total 950 ml Balance 620 ml Intake Oral 970 ml IV Total 600 ml Output Urine Total 950 ml # Bowel Movements 2 Daily Weight Change Unsure General: Alert, Cooperative, No Acute Distress HEENT: Other (dry mouth, + sores on Right side of tongue) Lungs: Clear to Auscultation, Normal Air Movement Heart: Regular Rate, No Murmurs Abdomen: Normal Bowel Sounds, Soft, No Tenderness, No Masses Neuro: Sensation Intact, Cranial Nerves 3-12 NL Psych/Mental Status: Other (Angry this AM) Results/Procedures Lab Laboratory Tests 06/26/18 05:58: White Blood Count 3.7L, Red Blood Count 2.10L, Hemoglobin 6.7*L, Hematocrit 21L , Mean Corpuscular Volume 100H, Mean Corpuscular Hemoglobin 32, Mean Corpuscular Hemoglobin Concent 32, Red Cell Distribution Width 21.2H, Platelet Count 42L, Mean Platelet Volume 10.7H, Neutrophils (%) (Auto) 51, Lymphocytes (% ) (Auto) 35, Monocytes (%) (Auto) 10, Eosinophils (%) (Auto) 4, Basophils (%) ( Auto) 0, Neutrophils # (Auto) 1.9, Lymphocytes # (Auto) 1.3, Monocytes # (Auto) 0.4, Eosinophils # (Auto) 0.2, Basophils # (Auto) 0.0, Sodium Level 136, Potassium Level 3.2L, Chloride Level 100, Carbon Dioxide Level 23, Anion Gap 13 , Blood Urea Nitrogen 18, Creatinine 1.95H, Estimat Glomerular Filtration Rate 26, BUN/Creatinine Ratio 9, Glucose Level 101, Calcium Level 8.8, Corrected Calcium 9.3, Total Bilirubin 0.6, Aspartate Amino Transf (AST/SGOT) 29, Alanine Aminotransferase (ALT/SGPT) 16, Alkaline Phosphatase 90, Total Protein 6.9, Albumin 3.4 Microbiology 06/25/18 Influenza Types A,B Antigen (TORRES) - Final, Complete 06/25/18 Urine Culture - Preliminary, Resulted Gram Negative Bacillus 1 Gram Negative Bacillus 2 Assessment/Plan Assessment/Plan (1) Sepsis secondary to UTI Status: Acute Assessment & Plan: - Sepsis has resolved, Continue broad spectrum AB, blood and urine cultures pending - Cefepime D2 06/26: Cultures pending, Continue Cefepime D3 (2) Pancytopenia Status: Acute Assessment & Plan: - Likely 2/ to PO chemo, will consult Oncology to see patient on wednesday - Hgb 6.7, iron panel pending, will continue to monitor 06/26: Stable, Has appt with Hem/Onc on (3) Acute kidney failure Status: Acute Assessment & Plan: - Gentle hydration, will continue to monitor 06/26:Trending down Qualifiers: Qualified Codes: N17.9 - Acute kidney failure, unspecified (4) Ovarian cancer Status: Acute Qualifiers: Qualified Codes: C56.9 - Malignant neoplasm of unspecified ovary (5) Hypokalemia Status: Acute Assessment & Plan: - Replaced and repeat BMP in AM (6) Debility Status: Acute Assessment & Plan: PT consulted, Patient desires to return home (7) DVT prophylaxis Status: Acute Clinical Quality Measures DVT/VTE Risk/Contraindication: Risk Factor Score Per Nursin RFS Level Per Nursing on Admit: 4+=Very High JEAN PAUL ANTHONY MD Jun 26, 2018 10:53
[2018-06-26 12:00] VITALS: BP 139/82
[2018-06-26] MEDS: ENOXAPARIN 30 MG/0.3 ML (LOVENOX) SYR SC SCH (13:46)
[2018-06-26 15:34] VITALS: BP 131/78
[2018-06-26 20:08] VITALS: BP 141/84
[2018-06-27 00:01] VITALS: BP 139/65
[2018-06-27] MEDS: NS IV 1000 ML 1,000 ML IV SCH (01:24)
[2018-06-27 04:04] VITALS: BP 144/72
[2018-06-27 08:00] VITALS: BP 171/76
[2018-06-27] MEDS: BRIMONIDINE 0.2% (ALPHAGAN) OPHTH SOLN 5 ML BTL OU SCH (08:19)
[2018-06-27] MEDS: TIMOLOL MALEATE 0.5% 5 ML (TIMOPTIC) BTL OU SCH (08:19)
[2018-06-27] MEDS: CEFEPIME 2 GM/NS 50 ML IVPB IV SCH ×2 (09:20)
[2018-06-27] MEDS: SERTRALINE 100 MG (ZOLOFT) TAB PO SCH (09:20)
[2018-06-27] MEDS: CLOPIDOGREL 75 MG (PLAVIX) TABLET PO SCH (09:20)
[2018-06-27] MEDS ORDERED: PANTOPRAZOLE 40 MG (PROTONIX) TAB PO SCH (09:35)
--- NOTE | 2018-06-27 10:47 | Physical Therapy Evaluation ---
PT Evaluation-General Medical Diagnosis Admission Date Jun 25, 2018 at 02:59 Medical Diagnosis: UTI/weakness Onset Date: Jun 25, 2018 Therapy Diagnosis Therapy Diagnosis: debility/weakness Height/Weight Height (Feet): 4 Height (Inches): 10.00 Weight (Pounds): 185 Weight (Ounces): 7.0 Precautions Precautions/Isolations: Chemo Precautions Weight Bear Status Right Lower Extremity: Right Weight Bearing/Tolerated Left Lower Extremity: Left Weight Bearing/Tolerated Referral Physician: Jose Raul Reason for Referral: Evaluation/Treatment Medical History Pertinent Medical History: CAD, HTN, OA Additional Medical History ovarian cancer Current History ED with N&V Reviewed History: Yes Social History Home: Apartment Current Living Status: Spouse Entry Into Home: Level Entry Prior/Core FIM Prior Level of Function Functional Loving Measure 0=Not Assessed/NA 4=Minimal Assistance 1=Total Assistance 5=Supervision or Setup 2=Maximal Assistance 6=Modified Loving 3=Moderate Assistance 7=Complete IndependenceIRFPAI Quality Coding Scale 6 Independent with activity with or without an assistive device 5 Patient requires set up or clean up by helper. Patient completes activity by themselves 4 Supervision or touching assist (CGA). [place] provide cues , steadying assist 3 The helper provides less than half the effort to complete the activity 2 The helper provides more than half the effort to complete the activity 1 Dependent. The helper does all the effort to complete an activity 7 Patient refused to complete or attempt activity 9 The patient did not perform the activity before the current illness or injury 88 Not attempted due to Medical conditions or safety concerns Bed Mobility: 7 Transfers (B,C,W/C) (FIM): 7 Gait: 7 PT Evaluation-Current Subjective Patient requires much encouragement to participate with PT. She reports she will only see PT one time. RN and SW notified. Pain Numeric Pain Scale: 0-No Pain Location: No Pain Reported Objective Patient Orientation: Confused Problem Solving: Fair Attachments: IV ROM/Strength ROM Lower Extremities bilateral LE WFL Strength Lower Extremities bilateral WFL Integumentary/Posture Integumentary refer to nursing notes Bowel Incontinence: No Bladder Incontinence: No Posture WFL/scoliosis Neuromuscular (Tone, Coordination, Reflexes) grossly intact Sensory Vision: Wears Glasses Hearing: Functional Sensation Right Lower Extremit: Intact Sensation Left Lower Extremity: Intact Transfers Functional Loving Measure 0=Not Assessed/NA 4=Minimal Assistance 1=Total Assistance 5=Supervision or Setup 2=Maximal Assistance 6=Modified Loving 3=Moderate Assistance 7=Complete Loving Transfers (B, C, W/C) (FIM): 5 Scootin Rollin Supine to/from Sit: 7 Sit to/from Stand: 5 Gait Mode of Locomotion: Walk Anticipated Mode of Locomotion: Walk Gait (FIM): 2 Distance (FIM): 0=446-68 ft Distance: 40' Gait Level of Assist: 7 Gait Assistive Device: None Comments/Gait Description safe and functional gait sequence Balance Sitting Static: Normal Sitting Dynamic: Normal Standing Static: Normal Standing Dynamic: Normal Assessment/Needs 68 y.o. female, is currently at [facility] with all gross motor skills and does not require skilled therapy intervention. Thank you for this referral. Rehab Potential: Fair PT Plan Treatment/Plan Treatment Plan: Discontinue PT, goals met Treatment Plan: Other Treatment Duration: Jun 27, 2018 Frequency: 1 time per week Estimated Hrs Per Day: .25 hour per day Patient and/or Family Agrees t: Yes Time/GCodes Time In: 955 Time Out: 1006 Total Billed Treatment Time: 11 Total Billed Treatment 1 visit EVLowC 11 min G Codes Necessary: No TUCKER GARCIA PT Jun 27, 2018 10:47
[2018-06-27 12:00] VITALS: BP 142/70
--- NOTE | 2018-06-27 12:50 | Discharge Summary ---
Diagnosis/Chief Complaint Date of Admission Jun 25, 2018 at 02:59 Date of Discharge 06/27/2018 Admission Diagnosis Admission Diagnosis Sepsis with UTI Pancytopenia Acute Kidney Failure Ovarian Ca Hypokalemia Debility Discharge Diagnosis See Above Chief Complaint/HPI Chief Complaint/HPI 68 yo F with ovarian cancer that presented to ER because she had a couple days where she was not feeling well. States that she is taking oral chemo and has been getting mouth sores from the pills. Denies any fever but has been having chills. Denies any pain other then her normal aches and pains. + increase in urination. Denies any blood in urine or stool. States that she has some nausea and vomited 1 time yesterday. States that she has been feeling more weak the last few days. No sick contacts. Discharge Summary-Simple/Stand Consultations Discharge Physical Examination Allergies: Coded Allergies: Iodinated Contrast- Oral and IV Dye (Unverified Allergy, Unknown, 12/07/13) amoxicillin (Unverified Allergy, Unknown, 12/07/13) Vitals & I&Os Vital Sign - Last 12Hours Date Time Temp Pulse Resp B/P (MAP) Pulse Ox O2 Delivery O2 Flow Rate FiO2 06/27/18 08:00 98.6 103 18 171/76 (107) 94 Room Air 06/25/18 04:43 21 06/25/18 04:29 2.00 Intake and Output 06/27/18 00:00 Intake Total 1530 ml Output Total 3500 ml Balance -1970 ml General Appearance: Alert, Cooperative, No Acute Distress HEENT: Other (sore on Right side of tongue) Respiratory: Clear to Auscultation, Normal Air Movement Cardiovascular: Regular Rate, No Murmurs Abdominal: Normal Bowel Sounds, Soft, No Tenderness, No Masses Skin: No Rashes, No Breakdown Neuro: Normal Speech, Sensation Intact, Cranial Nerves 3-12 NL Psych/Mental Status: Mental Status NL Hospital Course See final discharge diagnosis. Discussion & Recommendations 68 yo F with Ovarian cancer currently undergoing treatment that presented with weakness and fatigue Sepsis with UTI: Due to daily chemo patient was started on broad spectrum antibiotics and transitioned to PO per culture results. Patient remained HDS during admission. Pancytopenia: During review of labs patient seems to be at her baseline. Oncology consult was ordered but there was no coverage over the weekend. Patient has appointment with her Oncologist on . Acute Kidney Failure: Improved to baseline with IV and PO hydration. Ovarian Ca Hypokalemia Debility Discharge Condition at discharge Stable Instructions to patient/family Please see electronic discharge instructions given to patient. Discharge Medications Reviewed and agree with Discharge Medication list on patient's Discharge Instruction sheet Clinical Quality Measures DVT/VTE Risk/Contraindication: Risk Factor Score Per Nursin RFS Level Per Nursing on Admit: 4+=Very High JEAN PAUL ANTHONY MD Jun 27, 2018 12:50
[2018-06-27] MEDS ORDERED: CEFD300C3 PO (12:51)
--- NOTE | 2018-06-27 12:52 | Discharge Instructions ---
Discharge [facility] Discharge Medications New, Converted or Re-Newed RX: Transmitted to Pharmacy New Medications: Cefdinir (Cefdinir) 300 Mg Capsule 300 MG PO BID for 5 Days, #10 CAP Continued Medications: Brimonidine Tartrate/Timolol (Combigan Eye Drops) 5 Ml Drops 1 DROP OU BID, DROPS Cholecalciferol (Vitamin D3) (Vitamin D) 1,000 Unit Tablet 1000 UNIT PO DAILY, TAB Clopidogrel Bisulfate (Plavix 75 Mg) 75 Mg Tablet 75 MG PO DAILY, TAB (This prescription has been renewed) Doxepin HCl (Doxepin HCl) 25 Mg Capsule 25 MG PO HS, CAP Latanoprost (Xalatan 0.005%) 2.5 Ml Soln 1 DROP OU HS, EA Lovastatin (Lovastatin) 20 Mg Tablet 20 MG PO HS, TAB Niraparib Tosylate (Zejula) 100 Mg Capsule 200 MG PO DAILY, CAP (This prescription has been renewed) Pantoprazole Sod (Protonix Tab) 40 Mg Tab 40 MG PO DAILY, TAB (This prescription has been renewed) Sertraline Hcl (Zoloft) 100 Mg Tab 100 MG PO DAILY, TAB Patient Instructions Goal/Follow Up Appt: - Make sure to keep your follow up appt with Oncology on Patient Instructions: - Make sure to complete your antibiotic Activity & Diet Discharge Diet: No Restrictions Activity as Tolerated: Yes JEAN PAUL ANTHONY MD Jun 27, 2018 12:52
[2018-06-27 13:15] VITALS: BP 142/70
[2018-06-30] MEDS ORDERED: PANT40TA3 PO (13:26)
[2018-06-30] MEDS ORDERED: LATA2.5D5 OU (13:26)
[2018-06-30] MEDS ORDERED: SERT100T8 PO (13:26)
[2018-06-30] MEDS ORDERED: CLOP75TA28 PO (13:26)
== END 2018-06-27 13:15 | disposition home or self-care (01) | DRG 871 ==
LOC: EDUNIT# 00:13 → ER 00:16 → 4TH 02:59
PROVIDERS: ADMIT Family Medicine; ATTEND Family Medicine
DX: A41.9 Sepsis, unspecified organism (principal); N30.00 Acute cystitis without hematuria; C56.9 Malignant neoplasm of unspecified ovary; D61.810 Antineoplastic chemotherapy induced pancytopenia; N17.9 Acute kidney failure, unspecified; K14.0 Glossitis; I10 Essential (primary) hypertension; I25.10 Atherosclerotic heart disease of native coronary artery without angina pectoris; E87.6 Hypokalemia; E78.00 Pure hypercholesterolemia, unspecified; K21.9 Gastro-esophageal reflux disease without esophagitis; M81.0 Age-related osteoporosis without current pathological fracture; M19.041 Primary osteoarthritis, right hand; M19.042 Primary osteoarthritis, left hand; M41.9 Scoliosis, unspecified; Z87.891 Personal history of nicotine dependence; Z85.3 Personal history of malignant neoplasm of breast; Z95.5 Presence of coronary angioplasty implant and graft; Z87.19 Personal history of other diseases of the digestive system
CPT/HCPCS: 36415; 71045; 80053; 81000; 83605; 85025; 86141; 87040; 87077; 87088; 87186; 87804; 96361; 96374; 96375

== ENCOUNTER 2018-07-18 15:01 | Outpatient (RCR) | payer MEDICARE, MEDICAID ==
[2018-06-16 11:27] LABS: BASOPHILS % (AUTO) 0 % (0-10); EOSINOPHILS # (AUTO) 0.2 10^3/uL (0.0-0.3); EOSINOPHILS % (AUTO) 3 % (0-10); HEMATOCRIT 26 % (35-52); HEMOGLOBIN 8.2 G/DL (11.5-16.0); LYMPHOCYTES # (AUTO) 1.3 X 10^3 (1.0-4.0); LYMPHOCYTES % (AUTO) 19 % (12-44); MEAN CORPUSCULAR HEMOGLOBIN 31 PG (25-34); MEAN CORPUSCULAR HGB CONC 32 G/DL (32-36); MEAN CORPUSCULAR VOLUME 97 FL (80-99); MEAN PLATELET VOLUME 10.6 FL (7.4-10.4); MONOCYTES # (AUTO) 0.5 X 10^3 (0.0-1.0); MONOCYTES % (AUTO) 8 % (0-12); NEUTROPHILS # (AUTO) 4.7 X 10^3 (1.8-7.8); NEUTROPHILS % (AUTO) 70 % (42-75); PLATELET COUNT 101 10^3/uL (130-400); RED BLOOD COUNT 2.64 10^6/uL (4.35-5.85); RED CELL DISTRIBUTION WIDTH 19.4 % (10.0-14.5); WHITE BLOOD COUNT 6.8 10^3/uL (4.3-11.0)
[2018-06-16 11:40] LABS: CALCIUM 9.6 MG/DL (8.5-10.1); POTASSIUM 3.5 MMOL/L (3.6-5.0)
[2018-06-16 13:15] LABS: ALBUMIN 3.7 GM/DL (3.2-4.5); BILIRUBIN,DIRECT 0.3 MG/DL (0.0-0.3); BILIRUBIN,INDIRECT 0.4 MG/DL; BILIRUBIN,TOTAL 0.7 MG/DL (0.1-1.0); TOTAL PROTEIN 8.1 GM/DL (6.4-8.2)
[2018-06-23 16:00] LABS: BASOPHILS % (AUTO) 0 % (0-10); EOSINOPHILS # (AUTO) 0.1 10^3/uL (0.0-0.3); EOSINOPHILS % (AUTO) 2 % (0-10); HEMATOCRIT 23 % (35-52); HEMOGLOBIN 7.4 G/DL (11.5-16.0); LYMPHOCYTES # (AUTO) 1.2 X 10^3 (1.0-4.0); LYMPHOCYTES % (AUTO) 28 % (12-44); MEAN CORPUSCULAR HGB CONC 32 G/DL (32-36); MEAN CORPUSCULAR VOLUME 99 FL (80-99); MEAN PLATELET VOLUME 10.3 FL (7.4-10.4); MONOCYTES # (AUTO) 0.4 X 10^3 (0.0-1.0); MONOCYTES % (AUTO) 10 % (0-12); NEUTROPHILS # (AUTO) 2.5 X 10^3 (1.8-7.8); NEUTROPHILS % (AUTO) 59 % (42-75); PLATELET COUNT 50 10^3/uL (130-400); RED BLOOD COUNT 2.35 10^6/uL (4.35-5.85); RED CELL DISTRIBUTION WIDTH 20.6 % (10.0-14.5); WHITE BLOOD COUNT 4.3 10^3/uL (4.3-11.0)
[2018-06-23 16:01] LABS: MEAN CORPUSCULAR HEMOGLOBIN 31 PG (25-34)
[2018-06-23 16:19] LABS: CALCIUM 9.1 MG/DL (8.5-10.1); CREATININE SERUM 2.14 MG/DL (0.60-1.30); POTASSIUM 3.5 MMOL/L (3.6-5.0)
[2018-06-30 11:40] LABS: BASOPHILS % (AUTO) 0 % (0-10); EOSINOPHILS # (AUTO) 0.1 10^3/uL (0.0-0.3); EOSINOPHILS % (AUTO) 1 % (0-10); HEMATOCRIT 24 % (35-52); HEMOGLOBIN 7.3 G/DL (11.5-16.0); LYMPHOCYTES % (AUTO) 25 % (12-44); MEAN CORPUSCULAR HEMOGLOBIN 32 PG (25-34); MEAN CORPUSCULAR HGB CONC 31 G/DL (32-36); MEAN CORPUSCULAR VOLUME 104 FL (80-99); MEAN PLATELET VOLUME 10.6 FL (7.4-10.4); MONOCYTES # (AUTO) 0.5 X 10^3 (0.0-1.0); MONOCYTES % (AUTO) 12 % (0-12); NEUTROPHILS # (AUTO) 2.4 X 10^3 (1.8-7.8); NEUTROPHILS % (AUTO) 62 % (42-75); RED CELL DISTRIBUTION WIDTH 22.4 % (10.0-14.5); WHITE BLOOD COUNT 3.9 10^3/uL (4.3-11.0)
[2018-06-30 11:41] LABS: PLATELET COUNT 30 10^3/uL (130-400)
[~2018-07-18 15:01] MED LIST changes: +CEFD300C3 PO; +CLOP75TA28 PO; +LATA2.5D5 OU; +NIRA100C PO; +PANT40TA3 PO; +SERT100T8 PO
[2018-07-18 15:38] LABS: BASOPHILS % (AUTO) 0 % (0-10); EOSINOPHILS # (AUTO) 0.1 10^3/uL (0.0-0.3); EOSINOPHILS % (AUTO) 3 % (0-10); HEMATOCRIT 30 % (35-52); HEMOGLOBIN 9.7 G/DL (11.5-16.0); LYMPHOCYTES # (AUTO) 1.3 X 10^3 (1.0-4.0); LYMPHOCYTES % (AUTO) 36 % (12-44); MEAN CORPUSCULAR HEMOGLOBIN 32 PG (25-34); MEAN CORPUSCULAR HGB CONC 32 G/DL (32-36); MEAN CORPUSCULAR VOLUME 101 FL (80-99); MEAN PLATELET VOLUME 11.3 FL (7.4-10.4); MONOCYTES # (AUTO) 0.4 X 10^3 (0.0-1.0); MONOCYTES % (AUTO) 12 % (0-12); NEUTROPHILS # (AUTO) 1.8 X 10^3 (1.8-7.8); NEUTROPHILS % (AUTO) 49 % (42-75); PLATELET COUNT 99 10^3/uL (130-400); RED BLOOD COUNT 3.01 10^6/uL (4.35-5.85); RED CELL DISTRIBUTION WIDTH 18.7 % (10.0-14.5); WHITE BLOOD COUNT 3.6 10^3/uL (4.3-11.0)
[2018-07-18 15:58] LABS: ALBUMIN 3.7 GM/DL (3.2-4.5); BILIRUBIN,TOTAL 0.5 MG/DL (0.1-1.0); CALCIUM 9.1 MG/DL (8.5-10.1); CREATININE SERUM 1.19 MG/DL (0.60-1.30); POTASSIUM 3.7 MMOL/L (3.6-5.0); TOTAL PROTEIN 6.9 GM/DL (6.4-8.2)
== END 2018-09-14 | disposition home or self-care (01) ==
LOC: ONC 15:01
PROVIDERS: ATTEND Internal Medicine Hematology & Oncology
DX: C56.2 Malignant neoplasm of left ovary (principal); C54.1 Malignant neoplasm of endometrium; C79.89 Secondary malignant neoplasm of other specified sites; C78.5 Secondary malignant neoplasm of large intestine and rectum; C78.6 Secondary malignant neoplasm of retroperitoneum and peritoneum; C78.02 Secondary malignant neoplasm of left lung; Z85.3 Personal history of malignant neoplasm of breast; K21.0 Gastro-esophageal reflux disease with esophagitis; K44.9 Diaphragmatic hernia without obstruction or gangrene; D50.0 Iron deficiency anemia secondary to blood loss (chronic); D64.81 Anemia due to antineoplastic chemotherapy; D63.1 Anemia in chronic kidney disease; N18.9 Chronic kidney disease, unspecified; G62.0 Drug-induced polyneuropathy; T45.1X5A Adverse effect of antineoplastic and immunosuppressive drugs, initial encounter; I25.10 Atherosclerotic heart disease of native coronary artery without angina pectoris; K55.20 Angiodysplasia of colon without hemorrhage; L23.7 Allergic contact dermatitis due to plants, except food; Z95.5 Presence of coronary angioplasty implant and graft; Z79.02 Long term (current) use of antithrombotics/antiplatelets; Z79.82 Long term (current) use of aspirin; Z92.21 Personal history of antineoplastic chemotherapy; Z92.3 Personal history of irradiation; Z45.2 Encounter for adjustment and management of vascular access device
CPT/HCPCS: 36415; 80048; 80053; 80076; 85025; 96523; 99213

== ENCOUNTER → 2018-09-19 | Outpatient (CLI) | payer MEDICARE, MEDICAID ==
[~2018-09-19] MED LIST changes: +IOHEXOL 240 MGI/ML 20 ML (OMNIPAQUE) VIAL IV ONE; +IOHEXOL 300 MG/ML 30 ML (OMNIPAQUE 300) VIAL IV ONE; +MAGN400T50 PO; +OLAN10TA19 PO; +POLY17PO6 PO
[2018-09-19] MEDS: CATHETER FLUSH 10 ML SYR IVP PRN ×3 (14:32→14:37)
--- NOTE | 2018-09-19 14:46 | Diagnostic Imaging Report ---
INDICATION: Malfunctioning left chest wall port. This patient presents for port check. TECHNIQUE: The patient was brought to the fluoroscopy suite and placed on the table in the supine position. The left chest wall port was already accessed. Attempts were made to aspirate blood; however, these were unsuccessful. The port did appear to flush easily with saline. Next, a small amount of contrast was injected into the port. There is normal opacification of the port tubing. There does appear to be some accumulation of contrast around the catheter tip, likely owing to a fibrin sheath. No free flow of contrast from the catheter tip is seen. In addition, there appears to be a small accumulation of contrast along the port at the level of the lower left cervical spine. This does raise the question of a small hole within the port tubing. No definite kinking or obvious fracture of the tubing is identified. IMPRESSION: Malfunctioning port demonstrating accumulation of contrast along the tip, suggestive of fibrin sheath formation. In addition, there are findings suggestive of a hole within the port tubing near the apex of the tubing at the level of the lower left cervical spine. Dictated by: Dictated on workstation # [id number]
== END ==
LOC: RAD 13:46
PROVIDERS: ATTEND Internal Medicine Hematology & Oncology
DX: T85.9XXA Unspecified complication of internal prosthetic device, implant and graft, initial encounter (principal)
CPT/HCPCS: 36598

== ENCOUNTER 2018-09-22 09:20 | Outpatient (CLI) | payer MEDICARE, MEDICAID ==
[~2018-09-22] VITALS: Ht 147.3 cm; Wt 87.6 kg
[~2018-09-22 09:20] MED LIST changes: -IOHEXOL 240 MGI/ML 20 ML (OMNIPAQUE) VIAL IV ONE; -IOHEXOL 300 MG/ML 30 ML (OMNIPAQUE 300) VIAL IV ONE; -MAGN400T50 PO; -OLAN10TA19 PO; -POLY17PO6 PO
[2018-09-22] MEDS ORDERED: POLY17PO6 PO (10:34)
[2018-09-22] MEDS ORDERED: OLAN10TA19 PO (10:34)
[2018-09-22] MEDS ORDERED: MAGN400T50 PO (10:34)
== END 2018-09-22 11:51 | disposition home or self-care (01) ==
LOC: PREOP 09:20
PROVIDERS: ATTEND Surgery
DX: Z01.818 Encounter for other preprocedural examination (principal)
CPT/HCPCS: 87081

== ENCOUNTER 2018-09-29 08:55 | Day surgery (SDC) | payer MEDICAID, MEDICARE ==
[~2018-09-29] VITALS: Ht 147.3 cm; Wt 87.6 kg
[~2018-09-29 08:55] MED LIST changes: +MAGN400T50 PO; +OLAN10TA19 PO; +POLY17PO6 PO
[2018-09-29] MEDS ORDERED: LACTATED RINGERS 1,000 ML IV PRN (08:59)
[2018-09-29] MEDS ORDERED: CLINDAMYCIN 600 MG/50 ML IVPB 50 ML IV ONE (09:00)
[2018-09-29 09:10] VITALS: BP 150/97
[2018-09-29] MEDS ORDERED: PROPOFOL INJECTION 50 ML IV ONE (09:40)
[2018-09-29] MEDS ORDERED: BUPIVACAINE 0.5% 30 ML (SENSORCAINE) VIAL ONE (09:53)
[2018-09-29] MEDS ORDERED: LIDOCAINE 1% INJ 20 ML 20 ML VIAL ONE (09:53)
--- NOTE | 2018-09-29 10:08 | Progress Note-Pre Operative ---
Pre-Operative Progress Note H&P Reviewed The H&P was reviewed, patient examined and no changes noted. Date Seen by Provider: Sep 29, 2018 Time Seen by Provider: 10:07 Date H&P Reviewed: Sep 29, 2018 Time H&P Reviewed: 10:07 Pre-Operative Diagnosis: malfuntion ARIELLA Will DO Sep 29, 2018 10:08
[2018-09-29] MEDS ORDERED: ONDANSETRON 4 MG/2 ML (SDV) Z0FRAN IVP PRN (11:00)
[2018-09-29] MEDS ORDERED: fentaNYL INJECTION 100 MCG/2 ML AMP IVP ONE (11:00)
[2018-09-29 11:15] VITALS: BP 144/84
--- NOTE | 2018-09-29 11:15 | Anesthesia-General Post-Op ---
MAC Patient Condition Mental Status/LOC: Same as Preop Cardiovascular: Satisfactory Nausea/Vomiting: Absent Respiratory: Satisfactory Pain: Controlled Complications: Absent Post Op Complications Complications None Follow Up Care/Instructions Patient Instructions None needed. Anesthesiology Discharge Order Discharge Order Patient is doing well, no complaints, stable vital signs, no apparent adverse anesthesia problems. No complications reported per nursing. PEPITO HERRERA CRNA Sep 29, 2018 11:14
--- NOTE | 2018-09-29 11:42 | Discharge Inst-Simple/Standard ---
Discharge Inst-Standard Patient Instructions/Follow Up Plan of Care/Instructions/FU: 2 weeks Selena Activity as Tolerated: Yes Discharge Diet: Regular Diet Other Inst to Patient Follow up Appt: Make appointment for 2 week. Instructions: No lifting greater than 10 pounds. No strenuous activity. May shower in 24 hours, no tub bath or soaking. Use incentive spirometer at home as directed. No Smoking Skin/Wound Care: You have special glue over incision it will fall off on its own. Symptoms to Report: Appetite Changes, Extremity Discoloration, Numbness/Tingling, Swelling Increased , Bleeding Excessive, Eyesight Changes, Pain Increased, Urine Color Change, Constipation(Persistent), Fever over 101 degree F, Pain/Pressure in chest, Urinating Difficulty, Cough Up/Vomit Blood, Heart Beat Irreg/Pounding, Pain/ Pressure in jaw, Vaginal Bleeding Increase, Cramps in feet or legs, Lightheadedness, Pain/Pressure in shoulder, Diarrhea(Persistent), Memory Changes Suddenly, Questions/Concerns, Weight gain consecutive days, Dizziness/ Fainting, Nausea/Vomiting, Shortness of Breath, Weight gain over 2 pounds If questions or concerns contact your physician Or seek help at emergency department. ARIELLA PENALOZA DO Sep 29, 2018 11:42
--- NOTE | 2018-09-29 11:44 | Progress Note-Post Operative ---
Post-Operative Progess Note Surgeon (s)/Worm Packer (s) Surgeon ARIELLA PENALOZA DO Worm Packer: na Pre-Operative Diagnosis malfuntion port Post-Operative Diagnosis same Procedure & Operative Findings Date of Procedure 09/29/18 Procedure Performed/Findings port removal Anesthesia Type mac c local Estimated Blood Loss Estimated blood loss (mL): min Specimens/Packing Specimens Removed na ARIELLA PENALOZA DO Sep 29, 2018 11:44
[2018-09-29 11:45] VITALS: BP 146/67
[2018-09-29 12:00] VITALS: BP 146/67
--- NOTE | 2018-09-29 12:17 | OPERATIVE REPORT ---
DATE OF SERVICE: 09/29/2018 PREOPERATIVE DIAGNOSIS: Malfunctioning port. POSTOPERATIVE DIAGNOSIS: Malfunctioning port. PROCEDURE: Port removal. SURGEON: Ariella Walters DO. ANESTHESIA: MAC with local. ESTIMATED BLOOD LOSS: Minimal. COMPLICATIONS: None. INDICATIONS: The patient is a 68-year-old female with a malfunctioning port. She understands risks and benefits of the procedure and wished to proceed with the procedure. Consent was signed in the chart. PROCEDURE: The patient was taken to the operating suite, was prepped and draped in sterile fashion. Timeout was performed. Local anesthetic was infiltrated around the area. A 15-blade scalpel was used to make a skin incision through the previous scar. The port was dissected around and mobilized and freed and port was removed in its entirety. The wound was then irrigated with copious amounts of irrigation and suction. Subcutaneous tissue was then reapproximated using 3-0 Vicryl. Skin was then closed using 4-0 Vicryl in a running subcuticular fashion. The area was then washed and dried and Skin Affix was placed over the incision. The patient tolerated the procedure well without any complications. She was taken to the recovery room in stable condition. Job ID: [id number] DocumentID: [id number] Dictated Date: 09/29/2018 11:48:39 Manager Budget Date: 09/29/2018 12:16:26 Dictated By: ARIELLA WALTERS DO
== END 2018-09-29 12:10 | disposition home or self-care (01) ==
LOC: SDC 08:55
PROVIDERS: ATTEND Surgery
DX: T82.514A Breakdown (mechanical) of infusion catheter, initial encounter (principal); C56.2 Malignant neoplasm of left ovary; I25.10 Atherosclerotic heart disease of native coronary artery without angina pectoris; I12.9 Hypertensive chronic kidney disease with stage 1 through stage 4 chronic kidney disease, or unspecified chronic kidney disease; N18.2 Chronic kidney disease, stage 2 (mild); K21.9 Gastro-esophageal reflux disease without esophagitis; G47.33 Obstructive sleep apnea (adult) (pediatric); E66.01 Morbid (severe) obesity due to excess calories; Z68.41 Body mass index [BMI] 40.0-44.9, adult; Z85.3 Personal history of malignant neoplasm of breast; Z87.891 Personal history of nicotine dependence; Z79.02 Long term (current) use of antithrombotics/antiplatelets; Z79.899 Other long term (current) drug therapy; Z95.5 Presence of coronary angioplasty implant and graft

== ENCOUNTER 2018-10-26 10:55 | Outpatient (RCR) | payer MEDICARE, MEDICAID ==
[2018-09-19 15:10] LABS: BASOPHILS % (AUTO) 0 % (0-10); EOSINOPHILS # (AUTO) 0.2 10^3/uL (0.0-0.3); EOSINOPHILS % (AUTO) 4 % (0-10); HEMATOCRIT 34 % (35-52); HEMOGLOBIN 10.9 G/DL (11.5-16.0); LYMPHOCYTES # (AUTO) 1.5 X 10^3 (1.0-4.0); LYMPHOCYTES % (AUTO) 32 % (12-44); MEAN CORPUSCULAR HEMOGLOBIN 32 PG (25-34); MEAN CORPUSCULAR HGB CONC 32 G/DL (32-36); MEAN CORPUSCULAR VOLUME 100 FL (80-99); MEAN PLATELET VOLUME 9.5 FL (7.4-10.4); MONOCYTES # (AUTO) 0.4 X 10^3 (0.0-1.0); MONOCYTES % (AUTO) 9 % (0-12); NEUTROPHILS # (AUTO) 2.5 X 10^3 (1.8-7.8); NEUTROPHILS % (AUTO) 55 % (42-75); PLATELET COUNT 144 10^3/uL (130-400); RED CELL DISTRIBUTION WIDTH 13.6 % (10.0-14.5); WHITE BLOOD COUNT 4.6 10^3/uL (4.3-11.0)
[2018-09-19 15:30] LABS: ALBUMIN 3.8 GM/DL (3.2-4.5); BILIRUBIN,TOTAL 0.3 MG/DL (0.1-1.0); CALCIUM 9.2 MG/DL (8.5-10.1); CREATININE SERUM 1.26 MG/DL (0.60-1.30); POTASSIUM 4.3 MMOL/L (3.6-5.0); TOTAL PROTEIN 7.5 GM/DL (6.4-8.2)
[2018-10-26 11:36] LABS: BASOPHILS % (AUTO) 0 % (0-10); EOSINOPHILS # (AUTO) 0.1 10^3/uL (0.0-0.3); EOSINOPHILS % (AUTO) 2 % (0-10); HEMATOCRIT 36 % (35-52); HEMOGLOBIN 11.8 G/DL (11.5-16.0); LYMPHOCYTES # (AUTO) 1.6 X 10^3 (1.0-4.0); LYMPHOCYTES % (AUTO) 27 % (12-44); MEAN CORPUSCULAR HEMOGLOBIN 32 PG (25-34); MEAN CORPUSCULAR HGB CONC 33 G/DL (32-36); MEAN CORPUSCULAR VOLUME 97 FL (80-99); MEAN PLATELET VOLUME 9.3 FL (7.4-10.4); MONOCYTES # (AUTO) 0.4 X 10^3 (0.0-1.0); MONOCYTES % (AUTO) 6 % (0-12); NEUTROPHILS % (AUTO) 65 % (42-75); PLATELET COUNT 194 10^3/uL (130-400); RED CELL DISTRIBUTION WIDTH 13.3 % (10.0-14.5); WHITE BLOOD COUNT 6.1 10^3/uL (4.3-11.0)
[2018-10-26 11:52] LABS: ALBUMIN 4.2 GM/DL (3.2-4.5); BILIRUBIN,TOTAL 0.4 MG/DL (0.1-1.0); CALCIUM 9.4 MG/DL (8.5-10.1); CREATININE SERUM 1.4 MG/DL (0.60-1.30); POTASSIUM 4.4 MMOL/L (3.6-5.0); TOTAL PROTEIN 7.9 GM/DL (6.4-8.2)
== END 2018-12-18 | disposition home or self-care (01) ==
LOC: ONC 10:55
PROVIDERS: ATTEND Internal Medicine Hematology & Oncology
DX: C56.2 Malignant neoplasm of left ovary (principal); C54.1 Malignant neoplasm of endometrium; C79.89 Secondary malignant neoplasm of other specified sites; C78.5 Secondary malignant neoplasm of large intestine and rectum; C78.6 Secondary malignant neoplasm of retroperitoneum and peritoneum; C78.02 Secondary malignant neoplasm of left lung; Z85.3 Personal history of malignant neoplasm of breast; Z45.2 Encounter for adjustment and management of vascular access device
CPT/HCPCS: 36415; 80053; 82728; 83540; 85025; 86304

== ENCOUNTER 2018-12-20 10:42 | Outpatient (RCR) | payer MEDICAID ==
[2018-12-20 10:56] LABS: BASOPHILS % (AUTO) 0 % (0-10); EOSINOPHILS # (AUTO) 0.2 10^3/uL (0.0-0.3); EOSINOPHILS % (AUTO) 3 % (0-10); HEMATOCRIT 35 % (35-52); HEMOGLOBIN 11.5 G/DL (11.5-16.0); LYMPHOCYTES # (AUTO) 1.5 X 10^3 (1.0-4.0); LYMPHOCYTES % (AUTO) 28 % (12-44); MEAN CORPUSCULAR HEMOGLOBIN 31 PG (25-34); MEAN CORPUSCULAR HGB CONC 33 G/DL (32-36); MEAN CORPUSCULAR VOLUME 95 FL (80-99); MEAN PLATELET VOLUME 8.8 FL (7.4-10.4); MONOCYTES # (AUTO) 0.5 X 10^3 (0.0-1.0); MONOCYTES % (AUTO) 9 % (0-12); NEUTROPHILS # (AUTO) 3.2 X 10^3 (1.8-7.8); NEUTROPHILS % (AUTO) 60 % (42-75); PLATELET COUNT 182 10^3/uL (130-400); WHITE BLOOD COUNT 5.3 10^3/uL (4.3-11.0)
[2018-12-20 11:13] LABS: ALBUMIN 3.7 GM/DL (3.2-4.5); BILIRUBIN,TOTAL 0.3 MG/DL (0.1-1.0); CALCIUM 9.2 MG/DL (8.5-10.1); CREATININE SERUM 1.27 MG/DL (0.60-1.30); POTASSIUM 4.2 MMOL/L (3.6-5.0); TOTAL PROTEIN 7.2 GM/DL (6.4-8.2)
== END 2019-03-20 | disposition home or self-care (01) ==
LOC: ONC 10:42
PROVIDERS: ATTEND Internal Medicine Hematology & Oncology
DX: C56.2 Malignant neoplasm of left ovary (principal); C54.1 Malignant neoplasm of endometrium; C79.89 Secondary malignant neoplasm of other specified sites; C78.5 Secondary malignant neoplasm of large intestine and rectum; C78.6 Secondary malignant neoplasm of retroperitoneum and peritoneum; C78.02 Secondary malignant neoplasm of left lung; Z85.3 Personal history of malignant neoplasm of breast
CPT/HCPCS: 36415; 80053; 85025; 86304; 99213

== ENCOUNTER → 2019-01-16 | Outpatient (CLI) | payer MEDICARE, MEDICAID ==
--- NOTE | 2019-01-16 14:25 | Diagnostic Imaging Report ---
INDICATION: Right breast carcinoma. Patient reports having recent palpable abnormality in the right breast; however, she reports that currently there are no palpable abnormalities. COMPARISON: 12/22/2017 and 12/21/2016. TECHNIQUE: 2D and 3D bilateral diagnostic mammography was performed with CAD. FINDINGS: There are post lumpectomy changes in the upper outer right breast. The lumpectomy site is stable. The breasts show scattered fibroglandular densities. There are benign calcifications in both breasts. No new masses or malignant appearing microcalcifications are seen. The axillae are unremarkable. IMPRESSION: No mammographic features suspicious for malignancy are identified. If the previous palpable abnormalities in the right breast return, the patient could return for right breast ultrasound for further evaluation. ACR BI-RADS Category 2: Benign findings. Result letter will be mailed to the patient. Note: At least 10% of breast cancer is not imaged by mammography. Dictated by: Dictated on workstation # [id number]
== END ==
LOC: RAD 12:45
PROVIDERS: ATTEND Internal Medicine Hematology & Oncology
DX: D05.11 Intraductal carcinoma in situ of right breast (principal)
CPT/HCPCS: 77066

== ENCOUNTER 2019-03-21 10:53 | Outpatient (RCR) | payer MEDICARE, MEDICAID ==
[2019-03-21 11:23] LABS: BASOPHILS % (AUTO) 0 % (0-10); EOSINOPHILS # (AUTO) 0.1 10^3/uL (0.0-0.3); EOSINOPHILS % (AUTO) 3 % (0-10); HEMATOCRIT 39 % (35-52); HEMOGLOBIN 12.5 G/DL (11.5-16.0); LYMPHOCYTES # (AUTO) 1.1 X 10^3 (1.0-4.0); LYMPHOCYTES % (AUTO) 25 % (12-44); MEAN CORPUSCULAR HEMOGLOBIN 30 PG (25-34); MEAN CORPUSCULAR HGB CONC 32 G/DL (32-36); MEAN CORPUSCULAR VOLUME 92 FL (80-99); MEAN PLATELET VOLUME 9.3 FL (7.4-10.4); MONOCYTES # (AUTO) 0.3 X 10^3 (0.0-1.0); MONOCYTES % (AUTO) 6 % (0-12); NEUTROPHILS % (AUTO) 67 % (42-75); PLATELET COUNT 149 10^3/uL (130-400); RED CELL DISTRIBUTION WIDTH 13.9 % (10.0-14.5); WHITE BLOOD COUNT 4.4 10^3/uL (4.3-11.0)
[2019-03-21 11:40] LABS: ALBUMIN 3.9 GM/DL (3.2-4.5); BILIRUBIN,TOTAL 0.3 MG/DL (0.1-1.0); CALCIUM 9.3 MG/DL (8.5-10.1); CREATININE SERUM 1.52 MG/DL (0.60-1.30); TOTAL PROTEIN 7.3 GM/DL (6.4-8.2)
== END 2019-06-19 | disposition home or self-care (01) ==
LOC: ONC 10:53
PROVIDERS: ATTEND Internal Medicine Hematology & Oncology
DX: C56.2 Malignant neoplasm of left ovary (principal); C54.1 Malignant neoplasm of endometrium; C79.89 Secondary malignant neoplasm of other specified sites; C78.5 Secondary malignant neoplasm of large intestine and rectum; C78.6 Secondary malignant neoplasm of retroperitoneum and peritoneum; C78.02 Secondary malignant neoplasm of left lung; Z85.3 Personal history of malignant neoplasm of breast
CPT/HCPCS: 36415; 80053; 85025; 86304; 99213

== ENCOUNTER 2019-08-18 15:12 | Emergency (ER) | payer OTHER, MEDICAID ==
[~2019-08-18] VITALS: Ht 147 cm; Wt 95.0 kg
[~2019-08-18 15:12] MED LIST changes: -MAGN400T6 PO; +MAGN400T8 PO
--- NOTE | 2019-08-18 16:15 | ED Fall/Injury ---
General Chief Complaint: Trauma-Non Activation Stated Complaint: FALL Nursing Triage Note: PT ARRIVED PER EMS, PT FELL OVER CURB AND HIT FACE ABRASION NOTED ON FOREHEAD AND NOSE. PT DENIES LOC, PT CO OF L ANKLE PAIN. Source: patient, EMS Exam Limitations: no limitations History of Present Illness Date Seen by Provider: Aug 18, 2019 Time Seen by Provider: 16:12 Initial Comments This 69-year-old white female presents via the paramedics after having fallen over a curb sustaining blunt trauma to her forehead and left ankle. Patient denies loss of consciousness, subsequent neck pain, trauma to the chest abdomen or pelvis, or other injury or accident. Patient complained of pain over her forehead and over the lateral aspect of her left ankle and foot. Allergies and Home Medications Allergies Coded Allergies: Iodinated Contrast- Oral and IV Dye (Verified Allergy, Severe, CARDIAC ARREST, 09/22/18) amoxicillin (Verified Allergy, Mild, HIVES, 09/22/18) Home Medications Cholecalciferol (Vitamin D3) 1,000 Unit Tablet, 1,000 UNIT PO DAILY, (Reported) Clopidogrel Bisulfate 75 Mg Tablet, 75 MG PO DAILY, (Reported) Doxepin HCl 25 Mg Capsule, 25 MG PO HS, (Reported) Latanoprost 2.5 Ml Drops, 1 DROP OU HS, (Reported) Lovastatin 20 Mg Tablet, 20 MG PO HS, (Reported) Magnesium Oxide 400 Mg Tablet, 400 MG PO DAILY, (Reported) Olanzapine 10 Mg Tablet, 10 MG PO HS, (Reported) Pantoprazole Sodium 40 Mg Tablet.dr, 40 MG PO DAILY, (Reported) Polyethylene Glycol 3350 17 Gm Powd.pack, 17 GM PO PRN PRN for CONSTIPATION-1ST LINE, (Reported) Sertraline HCl 100 Mg Tablet, 100 MG PO DAILY, (Reported) Patient Home Medication List Home Medication List Reviewed: Yes Review of Systems Review of Systems Constitutional: no symptoms reported Eyes: No Symptoms Reported Ears, Nose, Mouth, Throat: see HPI (patient sustained a contusion to her forehead and to the bridge of her nose.) Respiratory: no symptoms reported Gastrointestinal: No abdominal pain, No nausea, No vomiting 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: no symptoms reported Musculoskeletal: No back pain; joint pain (lateral aspect of the left ankle.) Skin: rash (abrasion to the bridge of her nose and forehead.) Psychiatric/Neurological: No Symptoms Reported Past Vrqyhxv-Rzihnl-Yevoeq Hx Past Med/Social Hx: Reviewed Nursing Past Med/Soc Hx Patient Social History Alcohol Beverage of Choice: Beer 2nd Hand Smoke Exposure: No Recent Foreign Travel: No Contact w/Someone Who Travel: No Recent Infectious Disease Expo: No Recent Hopitalizations: Yes (JUN 2018-UTI) Immunizations Up To Date Tetanus Booster (TDap): Unknown PED Vaccines UTD: No Date of Pneumonia Vaccine: May 14, 2018 Date of Influenza Vaccine: May 14, 2018 Seasonal Allergies Seasonal Allergies: No Past Medical History Surgeries: Yes Coronary Stent, Hysterectomy, Lumpectomy Respiratory: No Currently Using CPAP: No Currently Using BIPAP: No Cardiac: Yes (STENTS) Coronary Artery Disease, High Cholesterol, Hypertension Neurological: No 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 Sexually Transmitted Disease: No HIV/AIDS: No 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) Gastrointestinal: Yes Abdominal Hernia, Colitis, Gastroesophageal Reflux, Chronic Constipation Musculoskeletal: Yes (MILD) Osteoporosis, Arthritis, Scoliosis Endocrine: No HEENT: Yes (GLASSES) Cataract Loss of Vision: Bilateral Hearing Impairment: Denies Cancer: Yes Breast, Ovarian, Vaginal Did You Recieve Any Treatments: Yes What Type of Treatment Did You: Chemotherapy, Radiation, Surgical Intervention Psychosocial: Yes Anxiety, Depression Integumentary: No Blood Disorders: Yes (HX OF ANEMIA WITH CHEMO) Adverse Reaction/Blood Tranf: No (HAS HAD BLOOD WITH NO REACTION) Family Medical History No Pertinent Family Hx Physical Exam Vital Signs Vital Signs - First Documented 08/18/19 15:15 Temp 36.8 Pulse 80 Resp 20 B/P (MAP) 143/88 (106) Pulse Ox 96 Capillary Refill : Less Than 3 Seconds Height, Weight, BMI Height: 4'10.00" Weight: 193lbs. 1.0oz. 87.607953vv; 43.00 BMI Method:Stated General Appearance: WD/WN, mild distress HEENT: other (abrasion to the bridge of nose and small abrasion of the forehead.) Neck: full range of motion, supple Cardiovascular: regular rate, rhythm Respiratory: lungs clear Gastrointestinal: normal bowel sounds, non tender, soft Extremities: normal range of motion, non-tender, other Neurologic/Psychiatric: no motor/sensory deficits (tenderness over the left lateral malleolar area), alert, normal mood/affect, oriented x 3 Skin: normal color, warm/dry, other (small abrasion over the bridge of the nose and forehead) [place] Coma Score Best Eye Response: (4) Open Spontaneously Best Verbal Response: (5) Oriented Best Motor Response: (6) Obeys Commands [place] Total: 15 Progress/Results/Core Measures Results/Orders My Orders Orders - GUICHO LAUGHLIN MD Ct Head Wo (08/18/19 15:45) Ankle, Left, 3 Views (08/18/19 15:45) Foot, Left, 3 Views (08/18/19 15:45) Mri Brain W/Wo Contrast (08/18/19 16:37) Vital Signs/I&O 08/18/19 15:15 Temp 36.8 Pulse 80 Resp 20 B/P (MAP) 143/88 (106) Pulse Ox 96 Blood Pressure Mean: 106 POS Progress Progress Note : Time: 16:48 Progress Note Radiographic and CT evaluation failed demonstrate evidence of acute trauma. However in the posterior portion of the patient's brain lesion was seen on CT and radiologist recommended an MRI of the head which I have ordered. MRI is not available after 4 p.m. on Wednesday. I ordered an MR of the head with and without for Wednesday for the patient. Departure Impression Primary Impression: Closed head injury Qualified Codes: S09.90XA - Unspecified injury of head, initial encounter Additional Impression: Brain tumor Disposition: HOME, SELF-CARE Condition: Improved Departure-Patient Inst. Decision time for Depature: 17:22 Referrals: [facility] [place] (PCP) Primary Care Physician PANCHITO KRISHNAMURTHY (Family) Primary Care Physician Patient Instructions: Brain Tumor, Adult (DC), Closed Head Injury Add. Discharge Instructions: Follow-up Wednesday for MRI of the brain. Come back for any problems or questions. All discharge instructions reviewed with patient and/or family. Voiced understanding. GUICHO LAUGHLIN MD Aug 18, 2019 16:15 POS
--- NOTE | 2019-08-18 16:15 | Diagnostic Imaging Report ---
INDICATION: Fall, pain. FINDINGS: Three-view left foot demonstrates no fracture, dislocation, or avulsive injury. No acute-appearing abnormality. IMPRESSION: Anatomically aligned foot shows no acute pathology. Dictated by: Dictated on workstation # [id number]
--- NOTE | 2019-08-18 16:17 | Diagnostic Imaging Report ---
INDICATION: Fall with injury to the left ankle. TIME OF EXAM: 04:07 p.m. FINDINGS: Three views of the left ankle were obtained. There is an osseous density adjacent to the medial malleolus which appears to be fairly well corticated and likely old. Ankle mortise is well maintained. Talar dome is smooth. No acute fracture is seen. There is no dislocation. No significant soft tissue swelling is identified. IMPRESSION: No acute bony abnormality is detected. Dictated by: Dictated on workstation # [id number]
--- NOTE | 2019-08-18 16:39 | Diagnostic Imaging Report ---
PROCEDURE: CT head without contrast. TECHNIQUE: Multiple contiguous axial images were obtained through the brain without the use of intravenous contrast. Auto Exposure Controls were utilized during the CT exam to meet ALARA standards for radiation dose reduction. INDICATION: Fall, striking the face, pain. COMPARISON: Previous exams report a history of endometrial, ovarian and breast cancers. Study can be correlated with brain MRI 06/30/2018. FINDINGS: Involving the right caudate and anterior superior basal ganglia, there is a subtle heterogeneous but abnormally hyperdense lesion measuring roughly 3.0 x 2.3 cm. Correlative brain MRI with and without contrast recommended as further evaluation as new metastatic lesion should be suspected based upon the change. While mildly hyperdense, it is much less dense than would be expected for a hematoma however petechial blood products within a mass could not be excluded. There is no hydrocephalus. There is no resultant shift or herniation. There were no findings suggestive for an elevation of the intracerebral pressures. No other focal parenchymal abnormality can be identified. Orbits, sinuses and calvarium appeared nonacute. IMPRESSION: 1. Abnormal heterogeneous and hyperdensity right caudate and basal ganglia anteriorly. Metastatic deposit could not be excluded. Elements of petechial hemorrhage within a mass may be present. Further workup with brain MRI with and without contrast recommended. 2. Despite the size of the area of altered density, no significant mass effect, shift, herniation or hydrocephalus. 3. Unremarkable calvarium. No other significant finding. Results phoned to the Emergency Room physician. Dictated by: Dictated on workstation # [id number]
[2019-08-18 17:38] VITALS: BP 143/88
--- OUTSIDE RECORDS SUMMARY | 2019-09-14 00:16 | XMS REPORT ---
Author Author Nancy KRISHNAMURTHY Organization [facility] [place] Address [address] [place] [address] Care Team Providers Care Assistant Clinical Director Name Role Phone PANCHITO KRISHNAMURTHY Unavailable PROBLEMS Type Condition ICD9-CM Code EHG40-VY Code Onset Dates Condition S tatus SNOMED Code Problem Morbid (severe) obesity due to excess calories E66 .01 Active 894249625 Problem Vitamin D deficiency E55.9 Active 93199924 Problem Essential hypertension I10 Active 00838610 Problem Major depressive disorder, recurrent episode, moderate F33.1 Active 614656822 Problem Memory loss R41.3 Active 87096067 6 Problem Coronary artery disease invo lving [place] coronary artery of [place] heart without angina pectoris I25.10 Active 1641 120508071 Problem Body mass index (BMI) of 40.0-44.9 in adult Z68.41 Active 887438069 Problem GERD without esophagitis K21.9 Activ e 724063997 Problem Chronic obstructive pulmonary disease, unspecified COPD ty pe J44.9 Active 79296953 Problem Glaucoma of both eyes, unspecified glaucoma type H 40.9 Active 52313130 Problem Recurrent major depressive disorder, in full remission F33.42 Active 55842207 Problem Constipation by delayed colonic transit K59.01 Active 85503126 Problem CKD (chronic kidney disease) stage 4, GFR 15-29 ml/min N18.4 Active 552067253 Problem Mixed hyperlipidemia E78.2 Active 686361062 ALLERGIES No Information ENCOUNTERS Encounter Location Date Diagnosis [facility] [place] [address] [facility] [id number] [address] [place] [phone] Aug, [facility] [place] [address] [facility] [id number] [address] [place] [phone] Jul, [facility] [place] [address] [facility] [id number] [address] [place] [phone] Jun, [place] [address] [facility] [id number] [address] [place] [phone] Jun, Essential hypertension I10 [place] [address] [facility] [id number] [place] [phone] Jun, [place] [address] [facility] [id number] [place] [phone] Jun, Major depressive disorder, r ecurrent episode, moderate F33.1 [place] [address] [place] [id number] [place] [phone] Jun, [place] [address] [facility] [id number] [place] [phone] Jun, [place] [address] [place] [id number] [place] [phone] Jun, [place] [address] [address] May, Viral rash B09 ; Recurrent m ajor depressive disorder, in full remission F33.42 and GERD without esophagitis K21.9 [place] [address] [address] May, Viral rash B09 and Encounter for immunization Z23 [place] [address] [place] [id number] [place] [phone] Apr, Essential hypertension I10 ; Glaucoma of both eyes, unspecified glaucoma type H40.9 ; Body mass index (BMI) of 40.0-44.9 in adult Z68.41 ; Chronic obstructive pulmonary disease, unspecified COPD type J44.9 ; Memory loss R41.3 and Poor dentition K08.9 [place] [address] [place] [id number] [place] [phone] Dec, Essential hypertension I10 ; Coronary artery disease involving stebbins coronary artery of stebbins heart without angina pectoris I25.10 ; Chronic [...] (severe) obesity due to excess calories E66.01 [facility] [address] [id number] [place] [id number] 15 Feb, 2016 Dental caries K02.9 [facility] [address] [id number] [address] [place] [phone] January, Dental examination Z01.20 IMMUNIZATIONS No Known Immunizations SOCIAL HISTORY Never Assessed REASON FOR VISIT Blood pressure check - Nas [place] PLAN OF CARE VITAL SIGNS Height 58 in 2018-07-06 Blood pressure systolic 132 mmHg 2018-07-06 Blood pressure diastolic 70 mmHg 2018-07-06 MEDICATIONS Unknown Medications RESULTS No Results PROCEDURES No Known procedures INSTRUCTIONS MEDICATIONS ADMINISTERED No Known Medications MEDICAL (GENERAL) HISTORY Type Description Date Medical History high blood pressure Medical History heart disease w/ stent to LA D D1 w/ Promus E. 2.5 x 12 mm 2016- Echo- LVEF 60% w/ triv to mild MR/TR mild diastolic dysfunction and PASP 30mmHg Medical History COPD Medical History Thyroid issues Medical History Cancer/uterine/ovarian/breast w/ lymph n ode involvement Medical History blood transfusions Medical History Blood thinners Medical History radiation/chemo Medical History kidney disease Medical History eczema Surgical History biopsy (multiple) Surgical History hysterectomy 2010 Surgical History Stent placement unknown Hospitalization History surgeries only
--- OUTSIDE RECORDS SUMMARY | 2019-09-14 00:16 | XMS REPORT ---
Author Author Nancy KRISHNAMURTHY Organization [facility] Address [address] [place] [address] Care Team Providers Care Salon/Spa Manager Name Role Phone PANCHITO KRISHNAMURTHY Unavailable PROBLEMS Type Condition ICD9-CM Code [id number] Code Onset Dates Condition S tatus SNOMED Code Problem Morbid (severe) obesity due to excess calories E66 .01 Active 214220894 Problem Vitamin D deficiency E55.9 Active 88669518 Problem Essential hypertension I10 Active 79074988 Problem Major depressive disorder, recurrent episode, moderate F33.1 Active 295336749 Problem Memory loss R41.3 Active 06357242 6 Problem Coronary artery disease invo lving [place] coronary artery of [place] heart without angina pectoris I25.10 Active 1641 078545214 Problem Body mass index (BMI) of 40.0-44.9 in adult Z68.41 Active 318249504 Problem GERD without esophagitis K21.9 Activ e 905825149 Problem Chronic obstructive pulmonary disease, unspecified COPD ty pe J44.9 Active 02437971 Problem Glaucoma of both eyes, unspecified glaucoma type H 40.9 Active 30833103 Problem Recurrent major depressive disorder, in full remission F33.42 Active 56764019 Problem Constipation by delayed colonic transit K59.01 Active 61386118 Problem CKD (chronic kidney disease) stage 4, GFR 15-29 ml/min N18.4 Active 746996094 Problem Mixed hyperlipidemia E78.2 Active 796657057 ALLERGIES No Information ENCOUNTERS Encounter Location Date Diagnosis [facility] [address] [facility] [id number] [address] [place] [phone] Aug, [facility] [address] [facility] [id number] [address] [place] [phone] Aug, [facility] [address] [facility] [id number] [address] [place] [phone] Jul, [facility] [address] [facility] [id number] [address] [place] [phone] Jul, [facility] [address] [facility] [id number] [address] [place] [phone] Jul, [facility] [address] [facility] [id number] [address] [place] [phone] Jun, Essential hypertension I10 [facility] [address] [place] [id number] [place] [phone] Jun, [facility] [address] [place] [id number] [place] [phone] Jun, Major depressive disorder, r ecurrent episode, moderate F33.1 [facility] [address] [place] [id number] [place] [phone] Jun, [facility] [address] [place] [id number] [place] [phone] Jun, [facility] [address] [place] [id number] [address] [place] [phone] Jun, [facility] [address] [place] [id number] [place] [address] May, Viral rash B09 ; Recurrent m ajor depressive disorder, in full remission F33.42 and GERD without esophagitis K21.9 [place] [address] [place] [id number] [place] [phone] May, Viral rash B09 and Encounter for immunization Z23 [facility] [address] [place] [id number] [address] [place] [phone] Apr, Essential hypertension I10 ; Glaucoma of both eyes, unspecified glaucoma type H40.9 ; Body mass index (BMI) of 40.0-44.9 in adult Z68.41 ; Chronic obstructive pulmonary disease, unspecified COPD type J44.9 ; Memory loss R41.3 and Poor dentition K08.9 [facility] [address] [place] [id number] [address] [place] [phone] 05 Apr, 2018 Essential hypertension I10 ; Coronary artery disease involving [place] coronary artery of [place] heart without angina pectoris I25.10 ; Chronic [...] (severe) obesity due to excess calories E66.01 [facility] [address] [facility] [id number] [address] [place] [phone] Feb, Dental caries K02.9 [facility] [address] [place] [id number] [address] [place] [phone] January, Dental examination Z01.20 IMMUNIZATIONS No Known Immunizations SOCIAL HISTORY Never Assessed REASON FOR VISIT [facility] VITAL SIGNS MEDICATIONS Unknown Medications RESULTS No Results PROCEDURES No Known procedures INSTRUCTIONS MEDICATIONS ADMINISTERED No Known Medications MEDICAL (GENERAL) HISTORY Type Description Date Medical History high blood pressure Medical History heart disease w/ stent to LA D D1 w/ Promus E. 2.5 x 12 mm 01/2013, 2016- Echo- LVEF 60% w/ triv to [...]
--- OUTSIDE RECORDS SUMMARY | 2019-09-14 00:16 | XMS REPORT ---
Author Author Nancy VALE Organization [facility] Address [address] [place] [address] Care Team Providers Care Systems Accountant Name Role Phone STEVEN VALE Unavailable PROBLEMS Type Condition ICD9-CM Code LOY36-IR Code Onset Dates Condition S tatus SNOMED Code Problem Morbid (severe) obesity due to excess calories E66 .01 Active 624022051 Problem Vitamin D deficiency E55.9 Active 81607594 Problem Essential hypertension I10 Active 50895591 Problem Major depressive disorder, recurrent episode, moderate F33.1 Active 046384014 Problem Memory loss R41.3 Active 36299897 6 Problem Coronary artery disease invo lving [place] coronary artery of [place] heart without angina pectoris I25.10 Active 1641 280253551 Problem Body mass index (BMI) of 40.0-44.9 in adult Z68.41 Active 991837176 Problem GERD without esophagitis K21.9 Activ e 406638005 Problem Chronic obstructive pulmonary disease, unspecified COPD ty pe J44.9 Active 02904667 Problem Glaucoma of both eyes, unspecified glaucoma type H 40.9 Active 71865828 Problem Recurrent major depressive disorder, in full remission F33.42 Active 00535275 Problem Constipation by delayed colonic transit K59.01 Active 90330048 Problem CKD (chronic kidney disease) stage 4, GFR 15-29 ml/min N18.4 Active 549281482 Problem Mixed hyperlipidemia E78.2 Active 694819687 ALLERGIES No Information ENCOUNTERS Encounter Location Date Diagnosis [facility] [address] [facility] [id number] [address] [place] [phone] Aug, [facility] [address] [facility] [id number] [address] [place] [phone] Jul, [facility] [address] [facility] [id number] [address] [place] [phone] Jun, [place] [address] [facility] [id number] [address] [place] [phone] Jun, Essential hypertension I10 [place] [address] [facility] [id number] [place] [phone] Jun, [place] [address] [place] [id number] [place] [phone] Jun, Major depressive disorder, r ecurrent episode, moderate F33.1 [place] [address] [place] [id number] [place] [phone] Jun, [place] [address] [facility] [id number] [place] [phone] Jun, [place] [address] [place] [id number] [place] [phone] Jun, [place] [address] [phone] May, Viral rash B09 ; Recurrent m ajor depressive disorder, in full remission F33.42 and GERD without esophagitis K21.9 [place] [address] [phone] May, Viral rash B09 and Encounter for immunization Z23 [place] [address] [place] [id number] [place] [phone] Apr, Essential hypertension I10 ; Glaucoma of both eyes, unspecified glaucoma type H40.9 ; Body mass index (BMI) of 40.0-44.9 in adult Z68.41 ; Chronic obstructive pulmonary disease, unspecified COPD type J44.9 ; Memory loss R41.3 and Poor dentition K08.9 [place] [address] [place] [id number] [place] [phone] Dec, Essential hypertension I10 ; Coronary artery disease involving [place] coronary artery of wr[place] heart without angina pectoris I25.10 ; Chronic [...] (severe) obesity due to excess calories E66.01 [facility] [address] [id number] [address] [place] [phone] Feb, Dental caries K02.9 [facility] [address] [id number] [address] [place] [phone] January, Dental examination Z01.20 IMMUNIZATIONS No Known Immunizations SOCIAL HISTORY Never Assessed REASON FOR VISIT intake PLAN OF CARE Activity Details Follow Up Next Available Reason: Fol low-up VITAL SIGNS MEDICATIONS Medication Instructions Dosage Frequency Start Date End Date Duration S tatus Combigan 0.2-0.5 % Ophthalmic Twice a day 1 drop into affected eye 12h Active Latanoprost 0.005 % Ophthalmic Once a day 1 drop into affected ear 24h Active protonix 40 mg by inhalation route Once a day 1 tablet 24h Aug, 90 days Active Plavix 75 MG Orally Once a day 1 tablet 24h 90 days Active Ciclopirox Active Magnesium 400 MG Orally Once a day 1 capsule 24h 90 days Active Lovastatin 20 MG Orally Once a day 1 tablet 24h 90 d ays Active MiraLax 17 gm/dose Orally Once a day 1 packet mixed with 8 ounces o f fluid 24h 90 days Active Doxepin HCl 25 MG Orally Once a day 1 capsule at bedtime 24h 90 days Active Vitamin D3 1000 UNIT Orally Once a day 1 capsule 24h 90 days Active RESULTS No Results PROCEDURES Procedure Date Ordered Result Body Site Psych diagnostic evaluation, established patient Jul 05, 2018 INSTRUCTIONS MEDICATIONS ADMINISTERED No Known Medications [...]
--- OUTSIDE RECORDS SUMMARY | 2019-09-14 00:16 | XMS REPORT ---
Author Author Nancy VALE Organization [facility] Address [address] [place] [address] Care Team Providers Care Assistant Technician Name Role Phone STEVEN VALE Unavailable PROBLEMS Type Condition ICD9-CM Code [id number] Code Onset Dates Condition S tatus SNOMED Code Problem Morbid (severe) obesity due to excess calories E66 .01 Active 866878662 Problem Vitamin D deficiency E55.9 Active 75785293 Problem Essential hypertension I10 Active 95117926 Problem Major depressive disorder, recurrent episode, moderate F33.1 Active 215682221 Problem Memory loss R41.3 Active 53284694 6 Problem Coronary artery disease invo lving [place] coronary artery of [place] heart without angina pectoris I25.10 Active 1641 786555250 Problem Body mass index (BMI) of 40.0-44.9 in adult Z68.41 Active 144596883 Problem GERD without esophagitis K21.9 Activ e 787331545 Problem Chronic obstructive pulmonary disease, unspecified COPD ty pe J44.9 Active 70804526 Problem Glaucoma of both eyes, unspecified glaucoma type H 40.9 Active 05435819 Problem Recurrent major depressive disorder, in full remission F33.42 Active 39436367 Problem Constipation by delayed colonic transit K59.01 Active 10069840 Problem CKD (chronic kidney disease) stage 4, GFR 15-29 ml/min N18.4 Active 260014087 Problem Mixed hyperlipidemia E78.2 Active 767942431 ALLERGIES No Information ENCOUNTERS Encounter Location Date Diagnosis [facility] [address] [facility] [id number] [address] [place] [phone] Aug, [facility] [address] [facility] [id number] [address] [place] [phone] Jul, [facility] [address] [facility] [id number] [address] [place] [phone] Jun, [place] [address] [facility] [id number] [address] [place] [phone] Jun, Essential hypertension I10 [place] [address] [facility] [id number] [place] [phone] Jun, [place] [address] [place] [id number] [place] [phone] Jun, Major depressive disorder, r ecurrent episode, moderate F33.1 [place] [address] [place] [id number] [place] [phone] Jun, [place] [address] [facility] [id number] [place] [phone] Jun, [place] [address] [place] [id number] [place] [phone] Jun, [place] [address] [address] May, Viral rash B09 ; Recurrent m ajor depressive disorder, in full remission F33.42 and GERD without esophagitis K21.9 [place] [address] [phone] May, Viral rash B09 and Encounter for immunization Z23 [place] [address] [place] [id number] [place] [phone] Apr, Essential hypertension I10 ; Glaucoma of both eyes, unspecified glaucoma type H40.9 ; Body mass index (BMI) of 40.0-44.9 in adult Z68.41 ; Chronic obstructive pulmonary disease, unspecified COPD type J44.9 ; Memory loss R41.3 and Poor dentition K08.9 [place] [address] [place] [id number] [place] [phone] Dec, Essential hypertension I10 ; Coronary artery disease involving [place] coronary artery of [place] heart without angina pectoris I25.10 ; Chronic [...] (severe) obesity due to excess calories E66.01 [facility] [address] [facility] [id number] [address] [place] [phone] 15 Feb, 2016 Dental caries K02.9 [facility] [address] [facility] [id number] [address] [place] [address] [phone] January, Dental examination Z01.20 IMMUNIZATIONS No Known Immunizations SOCIAL HISTORY Never Assessed REASON FOR VISIT Requests return call PLAN OF CARE VITAL SIGNS MEDICATIONS Unknown Medications RESULTS No [...]
--- OUTSIDE RECORDS SUMMARY | 2019-09-14 00:16 | XMS REPORT ---
Author Author Nancy GRACIA Organization [facility] Address [address] [place] [address] Care Team Providers Care Fur Repairer Name Role Phone JOSE A GRACIA Unavailable PROBLEMS Type Condition ICD9-CM Code [id number] Code Onset Dates Condition S tatus SNOMED Code Problem Constipation by delayed colonic transit K59.01 Active 29335319 Problem Coronary artery disease invo lving [place] coronary artery of [place] heart without angina pectoris I25.10 Active 1641 311550117 Problem Body mass index (BMI) of 40.0-44.9 in adult Z68.41 Active 719889761 Problem Mood disorder F39 Active 189939 05 Problem Unspecified mental disorder due to known physiological condition F09 Active 998235573 Problem GERD without esophagitis K21.9 Activ e 826910522 Problem Chronic obstructive pulmonary disease, unspecified COPD ty pe J44.9 Active 02370750 Problem Major depressive disorder, recurrent episode, moderate F33.1 Active 387075277 Problem Memory loss R41.3 Active 30016955 6 Problem CKD (chronic kidney disease) stage 4, GFR 15-29 ml/min N18.4 Active 659569098 Problem Essential hypertension I10 Active 53738122 Problem Vitamin D deficiency E55.9 Active 74000118 Problem Glaucoma of both eyes, unspecified glaucoma type H 40.9 Active 19340311 Problem Mixed hyperlipidemia E78.2 Active 700018360 Problem Recurrent major depressive disorder, in full remission F33.42 Active 54306650 Problem Morbid (severe) obesity due to excess calories E66 .01 Active 074131899 ALLERGIES Substance Reaction Event Type Date Status Zejula hives Drug Allergy Jul, Active Contrast Allergy PreMed Pack anaphylaxis Drug Allergy Jul, Active Cefdinir stomach upset Drug Allergy Jul, Active Amoxicillin Unknown Drug Allergy Jul, Active ENCOUNTERS Encounter Location Date Diagnosis [facility] [address] [id number] [address] [place] [phone] Aug, [facility] [address] [id number] [address] [place] [phone] Aug, [facility] [address] [facility] [id number] [address] [place] [phone] Aug, [facility] [address] [facility] [id number] [address] [place] [phone] Aug, [facility] [address] [facility] [id number] [address] [place] [phone] Jul, Recurrent major depressive d isorder, in full remission F33.42 ; Memory loss R41.3 and Brief psychotic disorder F23 [facility] [address] [facility] [id number] [address] [place] [id number] Jul, GERD without esophagitis K21 .9 ; Essential hypertension I10 and Mood disorder F39 [facility] [address] [facility] [id number] [address] [place] [phone] Jul, [facility] [address] [facility] [id number] [address] [place] [phone] Jun, Essential hypertension I10 [facility] [address] [facility] [id number] [address] [place] [phone] Jun, [facility] [address] [facility] [id number] [address] [place] [phone] Jun, Major depressive disorder, r ecurrent episode, moderate F33.1 [facility] [address] [facility] [id number] [address] [place] [phone] Jun, [facility] [address] [facility] [id number] [address] [place] [phone] Jun, [facility] [address] [facility] [id number] [address] [place] [phone] Jun, [facility] [address] [facility] [id number] [address] [place] [phone] May, Viral rash B09 ; Recurrent m ajor depressive disorder, in full remission F33.42 and GERD without esophagitis K21.9 [facility] [address] [place] [id number] [address] [place] [phone] May, Viral rash B09 and Encounter for immunization Z23 [facility] [address] [place] [id number] [address] [place] [phone] Apr, Essential hypertension I10 ; Glaucoma of both eyes, unspecified glaucoma type H40.9 ; Body mass index (BMI) of 40.0-44.9 in adult Z68.41 ; Chronic obstructive pulmonary disease, unspecified COPD type J44.9 ; Memory loss R41.3 and Poor dentition K08.9 [place] [address] [place] [id number] [address] [place] [address] Dec, Essential hypertension I10 ; Coronary artery disease involving [place] coronary artery of [place] heart without angina pectoris I25.10 ; Chronic [...] (severe) obesity due to excess calories E66.01 [facility] [address] [facility] [id number] [address] [place] [phone] Feb, Dental caries K02.9 [facility] [address] [place] [id number] [address] [place] [address] [id number] January, Dental examination Z01.20 IMMUNIZATIONS No Known Immunizations SOCIAL HISTORY Never Assessed REASON FOR VISIT enedina- nancy christine PLAN OF CARE Activity Details Follow Up 4 Weeks Reason: Follow-up VITAL SIGNS Height 58 in 2018-08-08 Weight 192.2 lbs 2018-08-08 Heart Rate 90 bpm 2018-08-08 Respiratory Rate 20 2018-08-08 BMI 40.17 kg/m2 2018-08-08 Blood pressure systolic 144 mmHg 2018-08-08 Blood pressure diastolic 92 mmHg 2018-08-08 MEDICATIONS Medication Instructions Dosage Frequency Start Date End Date Duration S tatus Lovastatin 20 MG Orally Once a day 1 tablet 24h 90 d ays Active MiraLax 17 gm/dose Orally Once a day 1 packet mixed with 8 ounces o f fluid 24h 90 days Active Ciclopirox Active Plavix 75 MG Orally Once a day 1 tablet 24h 90 days Active Zoloft 100 MG Orally Once a day 1 tablet 24h Jul, Active Magnesium 400 MG Orally Once a day 1 capsule 24h 90 days Active Doxepin HCl 25 MG Orally Once a day 1 capsule at bedtime 24h Active Combigan 0.2-0.5 % Ophthalmic Twice a day 1 drop into affected eye 12h Active Olanzapine 10 MG Orally at bedtime 1 tablet Active Vitamin D3 1000 UNIT Orally Once a day 1 capsule 24h 90 days Active Latanoprost 0.005 % Ophthalmic Once a day 1 drop into affected ear 24h Active protonix 40 mg by inhalation route Once a day 1 tablet 24h Active RESULTS No Results PROCEDURES No Known [...] Stent placement unknown Hospitalization History surgeries only Hospitalization History UTI 06/25/2018 Hospitalization History swelling in legs 06/30/2018
--- OUTSIDE RECORDS SUMMARY | 2019-09-14 00:16 | XMS REPORT ---
Author Author Nancy VALE Organization [facility] Address [address] [place] [address] Care Team Providers Care Wall Washer Name Role Phone STEVEN VALE Unavailable PROBLEMS Type Condition ICD9-CM Code POO55-GQ Code Onset Dates Condition S tatus SNOMED Code Problem Constipation by delayed colonic transit K59.01 Active 26822184 Problem Coronary artery disease invo lving [place] coronary artery of [place] heart without angina pectoris I25.10 Active 1641 530827068 Problem Body mass index (BMI) of 40.0-44.9 in adult Z68.41 Active 913194626 Problem Mood disorder F39 Active 337070 05 Problem Unspecified mental disorder due to known physiological condition F09 Active 604402406 Problem GERD without esophagitis K21.9 Activ e 468669504 Problem Chronic obstructive pulmonary disease, unspecified COPD ty pe J44.9 Active 08773609 Problem Major depressive disorder, recurrent episode, moderate F33.1 Active 048854418 Problem Memory loss R41.3 Active 15696165 6 Problem CKD (chronic kidney disease) stage 4, GFR 15-29 ml/min N18.4 Active 330194288 Problem Essential hypertension I10 Active 44488534 Problem Vitamin D deficiency E55.9 Active 86647937 Problem Glaucoma of both eyes, unspecified glaucoma type H 40.9 Active 47522088 Problem Mixed hyperlipidemia E78.2 Active 708325991 Problem Recurrent major depressive disorder, in full remission F33.42 Active 82632955 Problem Morbid (severe) obesity due to excess calories E66 .01 Active 389279183 ALLERGIES No Information ENCOUNTERS Encounter Location Date Diagnosis [facility] [address] [facility] [id number] [address] [place] [phone] Aug, [facility] [address] [facility] [id number] [address] [place] [phone] Aug, [facility] [address] [id number] [address] [place] [phone] 14 Aug, 2018 [facility] [address] [id number] [address] [place] [phone] Aug, Major depressive disorder, r ecurrent episode, moderate F33.1 [facility] [address] [id number] [address] [place] [phone] Jul, Recurrent major depressive d isorder, in full remission F33.42 ; Memory loss R41.3 and Brief psychotic disorder F23 [facility] [address] [id number] [address] [place] [phone] Jul, GERD without esophagitis K21 .9 ; Essential hypertension I10 and Mood disorder F39 [facility] [address] [id number] [address] [place] [phone] Jul, [facility] [address] [id number] [address] [place] [phone] Jun, Essential hypertension I10 [facility] [address] [id number] [address] [place] [phone] Jun, [facility] [address] [id number] [address] [place] [phone] Jun, Major depressive disorder, r ecurrent episode, moderate F33.1 [facility] [address] [id number] [address] [place] [phone] Jun, [facility] [address] [id number] [address] [place] [phone] Jun, [facility] [address] [id number] [address] [place] [phone] Jun, [facility] [address] [id number] [address] [place] [phone] May, Viral rash B09 ; Recurrent m ajor depressive disorder, in full remission F33.42 and GERD without esophagitis K21.9 [facility] [address] [id number] [address] [place] [phone] May, Viral rash B09 and Encounter for immunization Z23 [facility] [address] [facility] [id number] [address] [place] [phone] Apr, Essential hypertension I10 ; Glaucoma of both eyes, unspecified glaucoma type H40.9 ; Body mass index (BMI) of 40.0-44.9 in adult Z68.41 ; Chronic obstructive pulmonary disease, unspecified COPD type J44.9 ; Memory loss R41.3 and Poor dentition K08.9 [facility] [address] [facility] [id number] [address] [place] [phone] Dec, Essential hypertension I10 ; Coronary artery disease involving [place] coronary artery of [place] heart without angina pectoris I25.10 ; Chronic [...] (severe) obesity due to excess calories E66.01 [facility] [address] [facility] [id number] [address] [place] [phone] Feb, Dental caries K02.9 [facility] [address] [facility] [id number] [address] [place] [phone] January, Dental examination Z01.20 IMMUNIZATIONS No Known Immunizations SOCIAL HISTORY Never Assessed REASON FOR VISIT Follow-up Depression PLAN OF CARE Activity Details Follow Up 4 Weeks Reason: Follow-up VITAL SIGNS MEDICATIONS Unknown Medications RESULTS No Results PROCEDURES Procedure Date Ordered Result Body Site Psychotherapy, patient &/family, 30 minutes, established patient Aug 23, 2018 INSTRUCTIONS MEDICATIONS ADMINISTERED No Known Medications [...]
--- OUTSIDE RECORDS SUMMARY | 2019-09-14 00:21 | XMS REPORT | Continuity of Care Document ---
Author Organization Unknown Address Unknown Phone Unavailable Allergies Active Description Code Type Severity Reaction Onset Reported/Identified Relationship to Patient Clinical Status Yes Iodinated Contrast Media - IV Dye [id number] Drug Allergy Unknown N/A 014 Yes Iodinated Contrast Media - Oral and [id number] Drug Allergy Unknown N/A 12/07/2013 Yes amoxicillin [id number] Drug Aller gy Unknown N/A 06/30/2018 Yes Iodinated Contrast- Oral and IV Dye [id number] Drug Allergy Unknown N/A 06/30/2018 Yes Iodinated Contrast Media [id number] Drug Allergy Severe CARDIAC ARREST 09/22/2018 Yes Iodinated Contrast- Oral and IV Dye [id number] Drug Allergy Severe CARDIAC ARREST 09/22/2018 Yes amoxicillin [id number] Drug Aller gy Mild HIVES 09/22/2018 Medications There is no data. 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 DANA STREET MD, Ot C79.8 9 SECONDARY MALIGNANT NEOPLASM OF OTHER SP DANA STREET MD, Ot D50.0 IRON DEFICIENCY ANEMIA SECONDARY TO BLOO DANA STREET MD, Ot D63.1 ANEMIA IN CHRONIC KIDNEY DISEASE DANA STREET MD, Ot D64.8 1 ANEMIA DUE TO ANTINEOPLASTIC CHEMOTHERAP DANA STREET MD, Ot I25.1 0 ATHSCL HEART DISEASE OF [place] CORONARY DANA STREET MD, Ot K21.0 GASTRO-ESOPHAGEAL REFLUX DISEASE WITH ES DANA STREET MD, Ot K44.9 DIAPHRAGMATIC HERNIA WITHOUT OBSTRUCTION DANA STREET MD, Ot N18.9 CHRONIC KIDNEY DISEASE, UNSPECIFIED DANA STREET MD, Ot Z51.1 1 ENCOUNTER FOR ANTINEOPLASTIC CHEMOTHERAP DANA STREET MD, Ot Z79.0 2 CUSTODIAL (CURRENT) USE OF ANTITHROMBOTI DANA STREET MD, Ot Z79.8 2 CUSTODIAL (CURRENT) USE OF ASPIRIN DANA STREET MD, Ot Z85.3 PERSONAL HISTORY OF MALIGNANT NEOPLASM O DANA STREET MD, Ot Z92.2 1 PERSONAL HISTORY OF ANTINEOPLASTIC CHEMO DANA STREET MD, Ot Z95.5 PRESENCE OF CORONARY ANGIOPLASTY IMPLANT DANA STREET MD Ot C55 MALIGNANT NEOPLASM OF UTERUS, PART UNSPE DANA STREET MD, Ot C56.2 MALIGNANT NEOPLASM OF LEFT OVARY DANA STREET MD, Ot 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 DANA STREET MD, Ot 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 DANA STREET MD, Ot C79.8 9 SECONDARY MALIGNANT NEOPLASM OF OTHER SP DANA STREET MD, Ot D50.0 IRON DEFICIENCY ANEMIA SECONDARY TO BLOO DANA STREET MD, Ot D63.1 ANEMIA IN CHRONIC KIDNEY DISEASE DANA STREET MD, Ot D64.8 1 ANEMIA DUE TO ANTINEOPLASTIC CHEMOTHERAP DANA STREET MD, Ot I25.1 0 ATHSCL HEART DISEASE OF [place]FEET CORONARY DNAA STREET MD, Ot K21.0 GASTRO-ESOPHAGEAL REFLUX DISEASE WITH ES DANA STREET MD, Ot K44.9 DIAPHRAGMATIC HERNIA WITHOUT OBSTRUCTION DANA STREET MD, Ot N18.9 CHRONIC KIDNEY DISEASE, UNSPECIFIED DANA STREET MD, Ot Z51.1 1 ENCOUNTER FOR ANTINEOPLASTIC CHEMOTHERAP DANA STREET MD, Ot Z79.0 2 TELLER VAULT (CURRENT) USE OF ANTITHROMBOTI DANA STREET MD, Ot Z79.8 2 CUSTODIAL (CURRENT) USE OF ASPIRIN DANA STREET MD, Ot Z85.3 PERSONAL HISTORY OF MALIGNANT NEOPLASM O DANA STREET MD, Ot Z95.5 PRESENCE OF CORONARY ANGIOPLASTY IMPLANT 08/12/[address] MD, Ot C55 MALIGNANT NEOPLASM OF UTERUS, PART UNSPE 08/12/[address] MD, Ot C56. 2 MALIGNANT NEOPLASM OF LEFT OVARY 08/12/[address] MD, Ot C78. 5 SECONDARY MALIGNANT NEOPLASM OF LARGE IN 08/12/[address] MD, Ot C78. 6 SECONDARY MALIGNANT NEOPLASM OF RETROPER 08/12/[address] MD, Ot C79. 89 SECONDARY MALIGNANT NEOPLASM OF OTHER SP 08/12/[address] MD, Ot D50. 0 IRON DEFICIENCY ANEMIA SECONDARY TO BLOO 08/12/[address] MD, Ot D63. 1 ANEMIA IN CHRONIC KIDNEY DISEASE 08/12/[address] MD, Ot D64. 81 ANEMIA DUE TO ANTINEOPLASTIC CHEMOTHERAP 08/12/[address] MD, Ot I25. 10 ATHSCL HEART DISEASE OF [place] CORONARY 08/12/[address] MD, Ot K21. 0 GASTRO-ESOPHAGEAL REFLUX DISEASE WITH ES 08/12/[address] MD, Ot K44. 9 DIAPHRAGMATIC HERNIA WITHOUT OBSTRUCTION 08/12/[address] MD, Ot N18. 9 CHRONIC KIDNEY DISEASE, UNSPECIFIED 08/12/[address] MD, Ot Z79. 02 TELLER VAULT (CURRENT) USE OF ANTITHROMBOTI 08/12/[address] MD, Ot Z79. 82 TELLER VAULT (CURRENT) USE OF ASPIRIN 08/12/[address] MD, Ot Z85. 3 PERSONAL HISTORY OF MALIGNANT NEOPLASM O 08/12/[address] MD, Ot Z92. 21 PERSONAL HISTORY OF ANTINEOPLASTIC CHEMO 08/12/[address] MD, Ot Z95. 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 2 MALIGNANT NEOPLASM OF LEFT OVARY 08/12/[address] MD, Ot C78. 5 SECONDARY MALIGNANT NEOPLASM OF LARGE IN 08/12/[address] MD, Ot C78. 6 SECONDARY MALIGNANT NEOPLASM OF RETROPER 08/12/[address] MD, Ot C79. 89 SECONDARY MALIGNANT NEOPLASM OF OTHER SP 08/12/[address] MD, Ot D50. 0 IRON DEFICIENCY ANEMIA SECONDARY TO BLOO 08/12/[address] MD, Ot D63. 1 ANEMIA IN CHRONIC KIDNEY DISEASE 08/12/[address] MD, Ot D64. 81 ANEMIA DUE TO ANTINEOPLASTIC CHEMOTHERAP 08/12/[address] MD, Ot I25. 10 ATHSCL HEART DISEASE OF [place] CORONARY 08/12/[address] MD, Ot K21. 0 GASTRO-ESOPHAGEAL REFLUX DISEASE WITH ES 08/12/[address] MD, Ot K44. 9 DIAPHRAGMATIC HERNIA WITHOUT OBSTRUCTION 08/12/[address] MD, Ot N18. 9 CHRONIC KIDNEY DISEASE, UNSPECIFIED 08/12/[address] MD, Ot Z45. 2 ENCOUNTER FOR ADJUSTMENT AND MANAGEMENT 08/12/[address] MD, Ot Z79. 02 CUSTODIAL (CURRENT) USE OF ANTITHROMBOTI 08/12/[address] MD, Ot Z79. 82 TELLER VAULT (CURRENT) USE OF ASPIRIN 08/12/[address] MD, Ot Z85. 3 PERSONAL HISTORY OF MALIGNANT NEOPLASM O 08/12/[address] MD, Ot Z92. 21 PERSONAL HISTORY OF ANTINEOPLASTIC CHEMO 08/12/[address] MD, Ot Z95. 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 08/12/1519 KATIA PARR MD, Ot C78.6 SECONDARY MALIGNANT [...] MD, Ot 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 08/12/1519 KATIA PARR MD, Ot K21.0 GASTRO-ESOPHAGEAL REFLUX DISEASE WITH ES 08/12/1519 KATIA PARR MD, Ot K44.9 DIAPHRAGMATIC HERNIA WITHOUT OBSTRUCTION 08/12/1519 KATIA PARR MD, Ot N18.9 CHRONIC KIDNEY DISEASE, UNSPECIFIED 08/12/1519 KATIA PARR MD, Ot Z51.11 ENCOUNTER FOR ANTINEOPLASTIC CHEMOTHERAP 08/12/1519 KATIA PARR MD, Ot Z79.02 CUSTODIAL (CURRENT) USE OF ANTITHROMBOTI 08/12/1519 KATIA PARR MD, Ot Z79.82 TELLER VAULT (CURRENT) USE OF ASPIRIN 08/12/1519 KATIA PARR MD, Ot Z85.3 PERSONAL HISTORY OF MALIGNANT NEOPLASM O 08/12/1519 KATIA PARR MD, Ot Z92.21 PERSONAL HISTORY OF ANTINEOPLASTIC CHEMO 08/12/1519 KATIA PARR MD, Ot Z95.5 PRESENCE OF CORONARY ANGIOPLASTY IMPLANT 07/09/2010 Ot 530.19 07/09/2010 Ot 530.81 07/09/2010 Ot 553.3 07/03/2011 Ot 182.0 GEMMA G DELPHINE CORPUS UTERI 09/23/2011 Ot 182.0 GEMMA G DELPHINE CORPUS UTERI 09/23/2011 Ot 183.0 GEMMA GN NEOPL OVARY 09/23/2011 Ot 197.5 SEC MALIG DELPHINE LG BOWEL 09/23/2011 Ot 198.89 SEC ONDARY MALIG DELPHINE NEC 09/23/2011 Ot 285.9 ANEM IA NOS 09/23/2011 Ot V10.3 HX O F BREAST MALIGNANCY 09/23/2011 Ot V15.3 HX O F IRRADIATION 09/23/[address] ABSENCE OF GENITAL ORGANS 09/23/2011 Ot V58.11 ENC OUNTER FOR ANTINEOPLASTIC CHEMOTHERAP 09/23/2011 Ot V58.69 OTH MED,LT,CURRENT USE 09/23/2011 Ot V87.41 PER FELICE HISTORY OF ANTINEOPLASTIC CHEMO 12/27/2011 Ot 182.0 GEMMA G DELPHINE CORPUS UTERI 12/27/2011 Ot 183.0 GEMMA GN NEOPL OVARY 12/27/2011 Ot 197.5 SEC MALIG DELPHINE LG BOWEL 12/27/2011 Ot 198.89 SEC ONDARY MALIG DELPHINE NEC 12/27/2011 Ot 285.9 ANEM IA NOS 12/27/2011 Ot V10.3 HX O F BREAST MALIGNANCY 12/27/2011 Ot V15.3 HX O F IRRADIATION 12/27/[address] ABSENCE OF GENITAL ORGANS 12/27/2011 Ot V58.11 ENC OUNTER FOR ANTINEOPLASTIC CHEMOTHERAP 12/27/2011 Ot V58.69 OTH MED,LT,CURRENT USE 12/27/2011 Ot V87.41 PER FELICE HISTORY OF ANTINEOPLASTIC CHEMO 04/24/2012 Ot 182.0 GEMMA G DELPHINE CORPUS UTERI 04/24/2012 Ot 183.0 GEMMA GN NEOPL OVARY 04/24/2012 Ot 197.5 SEC MALIG DELPHINE LG BOWEL 04/24/2012 Ot 198.89 SEC ONDARY MALIG DELPHINE NEC 04/24/2012 Ot 285.9 ANEM IA NOS 04/24/2012 Ot 791.9 ABN URINE FINDINGS NEC 04/24/2012 Ot V10.3 HX O F BREAST MALIGNANCY 04/24/2012 Ot V15.3 HX O F IRRADIATION 04/24/[address] ABSENCE OF GENITAL ORGANS 04/24/2012 Ot V58.69 OTH MED,LT,CURRENT USE 04/24/2012 Ot V87.41 PER FELICE HISTORY OF ANTINEOPLASTIC CHEMO 07/31/2012 Ot 182.0 GEMMA G DELPHINE CORPUS UTERI 07/31/2012 Ot 183.0 GEMMA GN NEOPL OVARY 07/31/2012 Ot 197.5 SEC MALIG DELPHINE LG BOWEL 07/31/2012 Ot 198.89 SEC ONDARY MALIG DELPHINE NEC 07/31/2012 Ot 285.9 ANEM IA NOS 07/31/2012 Ot 791.9 ABN URINE FINDINGS NEC 07/31/2012 Ot V10.3 HX O F BREAST MALIGNANCY 07/31/2012 Ot V15.3 HX O F IRRADIATION 07/31/[address] ABSENCE OF GENITAL ORGANS 07/31/2012 Ot V58.69 OTH MED,LT,CURRENT USE 07/31/2012 Ot V58.81 FIT /ADJ VASCULAR CATHETER 07/31/2012 Ot V87.41 PER FELICE HISTORY OF ANTINEOPLASTIC CHEMO 12/27/2012 Ot 182.0 GEMMA G DELPHINE CORPUS UTERI 12/27/2012 Ot 183.0 GEMMA GN NEOPL OVARY 12/27/2012 Ot 197.5 SEC MALIG DELPHINE LG BOWEL 12/27/2012 Ot 198.89 SEC ONDARY MALIG DELPHINE NEC 12/27/2012 Ot 285.9 ANEM IA NOS 12/27/2012 Ot 791.9 ABN URINE FINDINGS NEC 12/27/2012 Ot V10.3 HX O F BREAST MALIGNANCY 12/27/2012 Ot V15.3 HX O F IRRADIATION 12/27/[address] ABSENCE OF GENITAL ORGANS 12/27/2012 Ot V58.69 OTH MED,LT,CURRENT USE 12/27/2012 Ot V58.81 FIT /ADJ VASCULAR CATHETER 12/27/2012 Ot V87.41 PER FELICE HISTORY OF ANTINEOPLASTIC CHEMO 01/17/2013 SUZIE ZUÑIGA MD Ot 278.00 OBESITY, NOS 01/17/2013 SUZIE ZUÑIGA MD Ot 401.9 HYPERTENSION NOS 01/17/2013 SUZIE ZUÑIGA MD Ot 414.01 CORONARY ATHEROSCLEROSIS OF BLACKFEET CORON 01/17/2013 SUZIE ZUÑIGA MD Ot 786.09 RESPIRATORY ABNORM NEC 01/17/2013 SUZIE ZUÑIGA MD Ot 786.50 CHEST PAIN NOS 01/17/2013 SUZIE ZUÑIGA MD Ot V10.3 HX OF BREAST MALIGNANCY 01/17/2013 SUZIE ZUÑIGA MD Ot V58.69 OTH MED,LT,CURRENT USE 01/17/2013 SUZIE ZUÑIGA MD Ot V85.41 BODY MASS INDEX 40.0-44.9, ADULT 03/09/2013 FERNY NICHOLSON MD Ot 530.11 REFLUX ESOPHAGITIS 03/09/2013 BHARAT LIU, FERNY Gordon Ot 553.3 DIAPHRAGMATIC HERNIA 03/09/2013 FERNY NICHOLSON MD Ot 562.10 DIVERTICULOSIS COLON (W/O MENT OF HEMORR 03/09/2013 FERNY NICHOLSON MD Ot 569.85 ANGIODYSPLASIA OF INTESTINE WITH HEMORRH 03/30/2013 FERNY NICHOLSON MD Ot 530.11 REFLUX ESOPHAGITIS 03/30/2013 FERNY NICHOLSON MD Ot 530.3 ESOPHAGEAL STRICTURE 04/17/[address] MD Ot 182. 0 MALIG DELPHINE CORPUS UTERI 04/17/[address] MD Ot 183. 0 MALIGN NEOPL OVARY 04/17/[address] MD Ot 197. 5 SEC MALIG DELPHINE LG BOWEL 04/17/[address] MD Ot 198. 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 04/17/[address] MD Ot 285. 9 ANEMIA NOS 04/17/[address] MD Ot 791. 9 ABN URINE FINDINGS NEC 04/17/[address] MD Ot V10. 3 HX OF BREAST MALIGNANCY 04/17/[address] MD, Ot V15. 3 HX OF IRRADIATION 04/17/[address] MD, Ot V45. 77 ACQRD ABSENCE OF GENITAL ORGANS 04/17/[address] MD, Ot V58. 69 OTH MED,LT,CURRENT USE 04/17/[address] MD, Ot V58. 81 FIT/ADJ VASCULAR CATHETER 04/17/[address] MD Ot V87. 41 PERSONAL HISTORY OF ANTINEOPLASTIC CHEMO 06/22/2013 FERNY NICHOLSON MD Ot 530.11 REFLUX ESOPHAGITIS 06/22/2013 FERNY NICHOLSON MD Ot 530.3 ESOPHAGEAL STRICTURE 08/01/[address] MD Ot 182. 0 MALIG DELPHINE CORPUS UTERI 08/01/[address] MD Ot 183. 0 MALIGN NEOPL OVARY 08/01/[address] MD Ot 197. 5 SEC MALIG DELPHINE LG BOWEL 08/01/[address] MD Ot 198. 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 08/01/[address] MD Ot 285. 9 ANEMIA NOS 08/01/[address] MD Ot 791. 9 ABN URINE FINDINGS NEC 08/01/[address] MD Ot V10. 3 HX OF BREAST MALIGNANCY 08/01/[address] MD Ot V15. 3 HX OF IRRADIATION 08/01/[address] MD Ot V45. 77 ACQRD ABSENCE OF GENITAL ORGANS 08/01/[address] MD, Ot V58. 69 OTH MED,LT,CURRENT USE 08/01/[address] MD, Ot V58. 81 FIT/ADJ VASCULAR CATHETER 08/01/[address] MD Ot V87. 41 PERSONAL HISTORY OF ANTINEOPLASTIC CHEMO 10/05/2013 FERNY NICHOLSON MD S Ot 530.11 REFLUX ESOPHAGITIS 10/05/2013 FERNY NICHOLSON MD S Ot 530.3 ESOPHAGEAL STRICTURE 11/21/[address] MD Ot 182. 0 MALIG DELPHINE CORPUS UTERI 11/21/[address] MD Ot 183. 0 MALIGN NEOPL OVARY 11/21/[address] MD Ot 197. 5 SEC MALIG DELPHINE LG BOWEL 11/21/[address] MD Ot 198. 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 11/21/[address] MD Ot 285. 9 ANEMIA NOS 11/21/[address] MD Ot 791. 9 ABN URINE FINDINGS NEC 11/21/[address] MD Ot V10. 3 HX OF BREAST MALIGNANCY 11/21/[address] MD Ot V15. 3 HX OF IRRADIATION 11/21/[address] MD, Ot V45. 77 ACQRD ABSENCE OF GENITAL ORGANS 11/21/[address] MD, Ot V58. 69 OTH MED,LT,CURRENT USE 11/21/[address] MD Ot V58. 81 FIT/ADJ VASCULAR CATHETER 11/21/[address] MD Ot V87. 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 0 MALIG DELPHINE CORPUS UTERI 04/08/2014 JAD LIU, DANA Ot 183. 0 MALIGN NEOPL OVARY 04/08/2014 JAD LIU, DANA Ot 197. 5 SEC MALIG DELPHINE LG BOWEL 04/08/2014 JAD LIU, DANA Ot 198. 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 04/08/2014 JAD LIU, DANA Ot 285. 9 ANEMIA NOS 04/08/2014 JAD LIU, DANA Ot 791. 9 ABN URINE FINDINGS NEC 04/08/2014 JAD LIU, DANA Ot V10. 3 HX OF BREAST MALIGNANCY 04/08/2014 JAD LIU, DANA Ot V15. 3 HX OF IRRADIATION 04/08/2014 JAD LIU, DANA Ot V45. 77 ACQRD ABSENCE OF GENITAL ORGANS 04/08/2014 JAD LIU, DANA Ot V58. 69 OT MED,LT,CURRENT USE 04/08/2014 JAD LIU, DANA Ot V58. 81 FIT/ADJ VASCULAR CATHETER 04/08/2014 JAD LIU, DANA Ot V87. 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 0 07/27/2014 JAD LIU, DANA Ot 183. 0 07/27/2014 JAD LIU, DANA Ot 197. 5 07/27/2014 JAD LIU, DANA Ot 198. 89 07/27/2014 JAD LIU, DANA Ot 285. 9 07/27/2014 JAD LIU, DANA Ot 791. 9 07/27/2014 JAD LIU, DANA Ot V10. 3 07/27/2014 JAD LIU, DANA Ot V15. 3 07/27/2014 JAD LIU, DANA Ot V45. 77 07/27/2014 JAD LIU, DANA Ot V58. 69 07/27/2014 JAD LIU, DANA Ot V58. 81 07/27/2014 JAD LIU, DANA Ot V87. 41 09/27/2014 JAD LIU, DANA Ot 182. 0 MALIG DELPHINE CORPUS UTERI 09/27/2014 JAD LIU, DANA Ot 183. 0 MALIGN NEOPL OVARY 09/27/2014 JAD LIU, DANA Ot 197. 5 SEC MALIG DELPHINE LG BOWEL 09/27/2014 JAD LIU, DANA Ot 198. 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 09/27/2014 JAD LIU, DANA Ot 285. 9 ANEMIA NOS 09/27/2014 JAD LIU, DANA Ot 791. 9 ABN URINE FINDINGS NEC 09/27/2014 JAD LIU, DANA Ot V10. 3 HX OF BREAST MALIGNANCY 09/27/2014 JAD LIU, DANA Ot V15. 3 HX OF IRRADIATION 09/27/2014 JAD LIU, DANA Ot V45. 77 ACQRD ABSENCE OF GENITAL ORGANS 09/27/2014 JAD LIU, DANA Ot V58. 69 OTH MED,LT,CURRENT USE 09/27/2014 JAD LIU, DANA Ot V58. 81 FIT/ADJ VASCULAR CATHETER 09/27/2014 JAD LIU, DANA Ot V87. 41 PERSONAL HISTORY OF ANTINEOPLASTIC CHEMO 10/02/2014 JAD LIU, DANA Ot 182. 0 10/02/2014 JAD LIU, DANA Ot 183. 0 10/02/2014 JAD LIU, DANA Ot 197. 5 10/02/2014 JAD LIU, DANA Ot 198. 89 10/02/2014 JAD LIU, DANA Ot 285. 9 10/02/2014 JAD LIU, DANA Ot 791. 9 10/02/2014 JAD LIU, DANA Ot V10. 3 10/02/2014 JAD LIU, DANA Ot V15. 3 10/02/2014 JAD LIU, DANA Ot V45. 77 10/02/2014 JAD LIU, DANA Ot V58. 69 10/02/2014 JAD LIU, DANA Ot V58. 81 10/02/2014 JAD LIU, DANA Ot V87. 41 10/02/2014 JAD LIU, DANA Ot 182. 0 10/02/2014 JAD LIU, ROSARIO-ARCELIA Ot 183. 0 10/02/2014 JAD LIU, ROSARIO-ARCELIA Ot 197. 5 10/02/2014 JAD LIU, ROSARIO-ARCELIA Ot 198. 89 10/02/2014 JAD LIU, ROSARIO-ARCELIA Ot 285. 9 10/02/2014 JAD LIU, ROSARIO-ARCELIA Ot 791. 9 10/02/2014 JAD LIU, ROSARIO-ARCELIA Ot V10. 3 10/02/2014 JAD LIU, ROSARIO-ARCELIA Ot V15. 3 10/02/2014 JAD LIU, ROSARIO-ARCELIA Ot V45. 77 10/02/2014 JAD LIU, ROSARIO-ARCELIA Ot V58. 69 10/02/2014 JAD LIU, ROSARIO-ARCELIA Ot V58. 81 10/02/2014 JAD LIU, ROSARIO-ARCELIA Ot V87. 41 10/02/2014 JAD LIU, ROSARIO-ARCELIA Ot 182. 0 10/02/2014 JAD LIU, ROSARIO-ARCELIA Ot 183. 0 10/02/2014 JAD LIU, ROSARIO-ARCELIA Ot 197. 5 10/02/2014 JAD LIU, ROSARIO-ARCELIA Ot 198. 89 10/02/2014 JAD LIU, ROSARIO-ARCELIA Ot 285. 9 10/02/2014 JAD LIU, ROSARIO-ARCELIA Ot 791. 9 10/02/2014 JAD LIU, ROSARIO-ARCELIA Ot V10. 3 10/02/2014 JAD LIU, ROSARIO-ARCELIA Ot V15. 3 10/02/2014 JAD LIU, ROSARIO-ARCELIA Ot V45. 77 10/02/2014 JAD LIU, ROSARIO-ARCELIA Ot V58. 69 10/02/2014 JAD LIU, ROSARIO-ARCELIA Ot V58. 81 10/02/2014 JAD LIU, ROSARIO-ARCELIA Ot V87. 41 10/03/2014 JAD LIU, ROSARIO-ARCELIA Ot 182. 0 10/03/2014 JAD LIU, ROSARIO-ARCELIA Ot 183. 0 10/03/2014 JAD LIU, ROSARIO-ARCELIA Ot 197. 5 10/03/2014 JAD LIU, ROSARIO-ARCELIA Ot 198. 89 10/03/2014 JAD LIU, ROSARIO-ARCELIA Ot 285. 9 10/03/2014 JAD LIU, ROSARIO-ARCELIA Ot 791. 9 10/03/2014 JAD LIU, ROSARIO-ARCELIA Ot V10. 3 10/03/2014 JAD LIU, ROSARIO-ARCELIA Ot V15. 3 10/03/2014 JAD LIU, DANA Ot V45. 77 10/03/2014 JAD LIU, DANA Ot V58. 69 10/03/2014 JAD LIU, DANA Ot V58. 81 10/03/2014 JAD LIU, DANA Ot V87. 41 10/25/2014 Ot 379.41 10/25/2014 Ot 784.0 10/25/2014 [...] 786.09 10/25/2014 Ot 786.09 10/25/2014 JAD LIU, [facility] Ot 183. 0 10/25/2014 BHARAT LIU, FERNY S Ot V72.84 10/25/2014 BHARAT LIU, FERNY S Ot V72.84 10/25/2014 BHARAT LIU, FERNY S Ot V72.84 10/25/2014 JAD LIU, [facility] Ot 721. 0 10/25/2014 JAD LIU, [facility] Ot V76. 12 10/25/2014 BHARAT LIU, FERNY S Ot V72.84 10/25/2014 BHARAT LIU, FERNY S Ot V72.84 10/25/2014 BHARAT LIU, FERNY S Ot V72.84 10/25/2014 ALFREDO CADENA Ot 585.3 10/25/2014 ALFREDO CADENA Ot 793.5 10/25/2014 BHARAT LIU, FERNY S Ot 530.85 10/25/2014 BHARAT LIU, FERNY S Ot V72.84 10/25/2014 JAD LIU, ROSARIO-ARCELIA Ot 182. 0 10/25/2014 JAD LIU, ROSARIO-ARCELIA Ot 183. 0 10/25/2014 JAD LIU, ROSARIO-ARCELIA Ot 197. 5 10/25/2014 JAD LIU, ROSARIO-ARCELIA Ot 198. 89 10/25/2014 JAD LIU, ROSARIO-ARCELIA Ot 285. 9 10/25/2014 JAD LIU, ROSARIO-ARCELIA Ot 791. 9 10/25/2014 JAD LIU, ROSARIO-ARCELIA Ot V10. 3 10/25/2014 JAD LIU, ROSARIO-ARCELIA Ot V15. 3 10/25/2014 JAD LIU, ROSARIO-ARCELIA Ot V45. 77 10/25/2014 JAD LIU, ROSARIO-ARCELIA Ot V58. 69 10/25/2014 JAD LIU, MARLENE-ARCELIA Ot V58. 81 10/25/2014 JAD LIU, MARLENE-ARCELIA Ot V87. 41 10/26/2014 JAD LIU, ROSARIO-ARCELIA Ot 174. 9 10/26/2014 JAD LIU, MARLENE-ARCELIA Ot V76. 11 10/29/2014 JAD LIU, ROSARIO-ARCELIA Ot 182. 0 10/29/2014 JAD LIU, ROSARIO-ARCELIA Ot 183. 0 10/29/2014 JAD LIU, ROSARIO-ARCELIA Ot 197. 5 10/29/2014 JAD LIU, ROSARIO-ARCELIA Ot 198. 89 10/29/2014 JAD LIU, ROSARIO-ARCELIA Ot 285. 9 10/29/2014 JAD LIU, ROSARIO-ARCELIA Ot 791. 9 10/29/2014 JAD LIU, ROSARIO-ARCELIA Ot V10. 3 10/29/2014 JAD LIU, ROSARIO-ARCELIA Ot V15. 3 10/29/2014 JAD LIU, MARLENE-ARCELIA Ot V45. 77 10/29/2014 JAD LIU, ROSARIO-ARCELIA Ot V58. 69 10/29/2014 JAD LIU, ROSARIO-ARCELIA Ot V58. 81 10/29/2014 JAD LIU, MARLENE-ARCELIA Ot V87. 41 11/07/2014 JAD LIU, ROSARIO-ARCELIA Ot 174. 9 11/07/2014 JAD LIU, ROSARIO-ARCELIA Ot V76. 11 12/29/2014 JAD LIU, DANA Ot 183. 0 12/31/2014 JAD LIU, DANA Ot 182. 0 MALIG DELPHINE CORPUS UTERI 12/31/2014 JAD LIU, DANA Ot 183. 0 MALIGN NEOPL OVARY 12/31/2014 JAD LIU, DANA Ot 197. 5 SEC MALIG DELPHINE LG BOWEL 12/31/2014 JAD LIU, DANA Ot 198. 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 12/31/2014 JAD LIU, DANA Ot 285. 9 ANEMIA NOS 12/31/2014 JAD LIU, DANA Ot 791. 9 ABN URINE FINDINGS NEC 12/31/2014 JAD LIU, DANA Ot V10. 3 HX OF BREAST MALIGNANCY 12/31/2014 JAD LIU, DANA Ot V15. 3 HX OF IRRADIATION 12/31/2014 JAD LIU, DANA Ot V45. 77 ACQRD ABSENCE OF GENITAL ORGANS 12/31/2014 JAD LIU, DANA Moyer V58. 69 OTH MED,LT,CURRENT USE 12/31/2014 JAD LIU, DANA Ot V58. 81 FIT/ADJ VASCULAR CATHETER 12/31/2014 JAD LIU, DANA Ot V87. 41 PERSONAL HISTORY OF ANTINEOPLASTIC CHEMO 01/08/2015 JAD LIU, DANA Ot 182. 0 01/08/2015 JAD LIU, DANA Ot 183. 0 01/08/2015 JAD LIU, DANA Ot 197. 5 01/08/2015 JAD LIU, DANA Ot 198. 89 01/08/2015 JAD LIU, DANA Ot 285. 9 01/08/2015 JAD LIU, DANA Ot 791. 9 01/08/2015 JAD LIU, DANA Ot V10. 3 01/08/2015 JAD LIU, DANA Ot V15. 3 01/08/2015 JAD LIU, DANA Ot V45. 77 01/08/2015 JAD LIU, DANA Ot V58. 69 01/08/2015 JAD LIU, DANA Ot V58. 81 01/08/2015 JAD LIU, DANA Ot V87. 41 01/11/2015 JAD LIU, DANA Ot 182. 0 01/11/2015 JAD LIU, ROSARIO-ARCELIA Ot 183. 0 01/11/2015 JAD LIU, ROSARIO-ARCELIA Ot 197. 5 01/11/2015 JAD LIU, ROSARIO-ARCELIA Ot 198. 89 01/11/2015 JAD LIU, ROSARIO-ARCELIA Ot 285. 9 01/11/2015 JAD LIU, ROSARIO-ARCELIA Ot 791. 9 01/11/2015 JAD LIU, ROSARIO-ARCELIA Ot V10. 3 01/11/2015 JAD LIU, ROSARIO-ARCELIA Ot V15. 3 01/11/2015 JAD LIU, ROSARIO-ARCELIA Ot V45. 77 01/11/2015 JAD LIU, ROSARIO-ARCELIA Ot V58. 69 01/11/2015 JAD LIU, ROSARIO-ARCELIA Ot V58. 81 01/11/2015 JAD LIU, ROSARIO-ARCELIA Ot V87. 41 01/15/2015 JAD LIU, ROSARIO-ARCELIA Ot 182. 0 01/15/2015 JAD LIU, ROSARIO-ARCELIA Ot 183. 0 01/15/2015 JAD LIU, ROSARIO-ARCELIA Ot 197. 5 01/15/2015 JAD LIU, ROSARIO-ARCELIA Ot 198. 89 01/15/2015 JAD LIU, ROSARIO-ARCELIA Ot 285. 9 01/15/2015 JAD LIU, ROSARIO-ARCELIA Ot 791. 9 01/15/2015 JAD LIU, ROSARIO-ARCELIA Ot V10. 3 01/15/2015 JAD LIU, ROSARIO-ARCELIA Ot V15. 3 01/15/2015 JAD LIU, ROSARIO-ARCELIA Ot V45. 77 01/15/2015 JAD LIU, ROSARIO-ARCELIA Ot V58. 69 01/15/2015 JAD LIU, ROSARIO-ARCELIA Ot V58. 81 01/15/2015 JAD LIU, ROSARIO-ARCEILA Ot V87. 41 01/16/2015 JAD LIU, ROSARIO-ARCELIA Ot 182. 0 01/16/2015 JAD LIU, ROSARIO-ARCELIA Ot 183. 0 01/16/2015 JAD LIU, ROSARIO-ARCELIA Ot 197. 5 01/16/2015 JAD LIU, ROSARIO-ARCELIA Ot 198. 89 01/16/2015 JAD LIU, ROSARIO-ARCELIA Ot 285. 9 01/16/2015 JAD LIU, ROSARIO-ARCELIA Ot 791. 9 01/16/2015 JAD LIU, ROSARIO-ARCELIA Ot V10. 3 01/16/2015 JAD LIU, ROSARIO-ARCELIA Ot V15. 3 01/16/2015 JAD LIU, MARLENE-ARCELIA Ot V45. 77 01/16/2015 JAD LIU, MARLENE-ARCELIA Ot V58. 69 01/16/2015 JAD LIU, MARLENE-ARCELIA Ot V58. 81 01/16/2015 JAD LIU, MARLENE-ARCELIA Ot V87. 41 01/17/2015 JAD LIU, MARLENE-ARCELIA Ot 183. 0 02/05/2015 JAD LIU, MARLENE-ARCELIA Ot 182. 0 02/05/2015 JAD LIU, MARLENE-ARCELIA Ot 183. 0 02/05/2015 JAD LIU, ROSARIO-ARCELIA Ot 197. 5 02/05/2015 JAD LIU, MARLENE-ARCELIA Ot 198. 89 02/05/2015 JAD LIU, MARLENE-ARCELIA Ot 285. 9 02/05/2015 JAD LIU, MARLENE-ARCELIA Ot 791. 9 02/05/2015 JAD LIU, MARLENE-ARCELIA Ot V10. 3 02/05/2015 JAD LIU, MARLENE-ARCELIA Ot V15. 3 02/05/2015 JAD LIU, DANA Ot V45. 77 02/05/2015 JAD LIU, DANA Ot V58. 11 02/05/2015 JAD LIU, DANA Ot V58. 69 02/05/2015 JAD LIU, DANA Ot V58. 81 02/05/2015 JAD LIU, DANA Ot V87. 41 02/05/2015 BAIMA, NALINI L REFRIGERATOR ROOM CLERK Ot 272.4 02/05/2015 BAIMA, NALINI L REFRIGERATOR ROOM CLERK Ot 401.9 02/05/2015 BAIMA, NALINI L REFRIGERATOR ROOM CLERK Ot 414.9 02/05/2015 BAIMA, NALINI L REFRIGERATOR ROOM CLERK Ot 437.9 02/25/2015 BAIMA, NALINI L REFRIGERATOR ROOM CLERK Ot 272.4 02/25/2015 BAIMA, NALINI L REFRIGERATOR ROOM CLERK Ot 401.9 02/25/2015 BAIMA, NALINI L REFRIGERATOR ROOM CLERK Ot 414.9 02/25/2015 BAIMA, NALINI L REFRIGERATOR ROOM CLERK Ot 437.9 02/26/2015 BAIMA, NALINI L REFRIGERATOR ROOM CLERK Ot 272.4 02/26/2015 BAIMA, NALINI L REFRIGERATOR ROOM CLERK Ot 401.9 02/26/2015 BAIMA, NALINI L REFRIGERATOR ROOM CLERK Ot 414.00 02/26/2015 BAIMA, NALINI L REFRIGERATOR ROOM CLERK Ot 437.9 03/05/2015 JAD LIU, ROSARIO-ARCELIA Ot 182. 0 03/05/2015 JAD LIU, ROSARIO-ARCELIA Ot 183. 0 03/05/2015 JAD LIU, ROSARIO-ARCELIA Ot 197. 5 03/05/2015 JAD LIU, ROSARIO-ARCELIA Ot 198. 89 03/05/2015 JAD LIU, ROSARIO-ARCELIA Ot 285. 9 03/05/2015 JAD LIU, ROSARIO-ARCELIA Ot 791. 9 03/05/2015 JAD LIU, ROSARIO-ARCELIA Ot V10. 3 03/05/2015 JAD LIU, ROSARIO-ARCELIA Ot V15. 3 03/05/2015 JAD LIU, ROSARIO-ARCELIA Ot V45. 77 03/05/2015 JAD LIU, ROSARIO-ARCELIA Ot V58. 11 03/05/2015 JAD LIU, MARLENE-ARCELIA Ot V58. 69 03/05/2015 JAD LIU, MARLENE-ARCELIA Ot V58. 81 03/05/2015 JAD LIU, MARLENE-ARCELIA Ot V87. 41 03/09/2015 JAZ NALINI L REFRIGERATOR ROOM CLERK Ot 272.4 03/09/2015 JAZ, NALINI L REFRIGERATOR ROOM CLERK Ot 401.9 03/09/2015 JAZ, NALINI L REFRIGERATOR ROOM CLERK Ot 414.00 03/09/2015 JAZ, NALINI L REFRIGERATOR ROOM CLERK Ot 437.9 03/19/2015 JAD LIU, ROSARIO-ARCELIA Ot 182. 0 03/19/2015 JAD LIU, ROSARIO-ARCELIA Ot 183. 0 03/19/2015 JAD LIU, ROSARIO-ARCELIA Ot 197. 5 03/19/2015 JAD LIU, ROSARIO-ARCELIA Ot 198. 89 03/19/2015 JAD LIU, ROSARIO-ARCELIA Ot 285. 9 03/19/2015 JAD LIU, ROSARIO-ARCELIA Ot 791. 9 03/19/2015 JAD LIU, ROSARIO-ARCELIA Ot V10. 3 03/19/2015 JAD LIU, MARLENE-ARCELIA Ot V15. 3 03/19/2015 JAD LIU, MARLENE-ARCELIA Ot V45. 77 03/19/2015 JAD LIU, ROSARIO-ARCELIA Ot V58. 11 03/19/2015 JAD LIU, MARLENE-ARCELIA Ot V58. 69 03/19/2015 JAD LIU, MARLENE-ARCELIA Ot V58. 81 03/19/2015 JAD LIU, DANA Ot V87. 41 04/05/2015 JAD LIU, DANA Ot 174. 9 04/05/2015 JAD LIU, DANA Ot 183. 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 0 MALIG DELPHINE CORPUS UTERI 04/15/2015 JAD LIU, DANA Ot 183. 0 MALIGN NEOPL OVARY 04/15/2015 JAD LIU, DANA Ot 197. 5 SEC MALIG DELPHINE LG BOWEL 04/15/2015 JAD LIU, DANA Ot 198. 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 04/15/2015 JAD LIU, DANA Ot 285. 9 ANEMIA NOS 04/15/2015 JAD LIU, DANA Ot 791. 9 ABN URINE FINDINGS NEC 04/15/2015 JAD LIU, DANA Ot V10. 3 HX OF BREAST MALIGNANCY 04/15/2015 JAD LIU, DANA Ot V15. 3 HX OF IRRADIATION 04/15/2015 JAD LIU, DANA Ot V45. 77 ACQRD ABSENCE OF GENITAL ORGANS 04/15/2015 JAD LIU, DANA Ot V58. 11 ENCOUNTER FOR ANTINEOPLASTIC CHEMOTHERAP 04/15/2015 JAD LIU, DANA Ot V58. 69 OT MED,LT,CURRENT USE 04/15/2015 JAD LIU, DANA Ot V58. 81 FIT/ADJ VASCULAR CATHETER 04/15/2015 JAD LIU, DANA Ot V87. 41 PERSONAL HISTORY OF ANTINEOPLASTIC CHEMO 04/22/2015 JAD LIU, DANA Ot 182. 0 04/22/2015 JAD LIU, DANA Ot 183. 0 04/22/2015 JAD LIU, DANA Ot 197. 5 04/22/2015 JAD LIU, DANA Ot 198. 89 04/22/2015 JAD LIU, DANA Ot 285. 9 04/22/2015 JAD LIU, DANA Ot 791. 9 04/22/2015 JAD LIU, DANA Ot V10. 3 04/22/2015 JAD LIU, DANA Ot V15. 3 04/22/2015 JAD LIU, DANA Ot V45. 77 04/22/2015 JAD LIU, DANA Ot V58. 11 04/22/2015 JAD LIU, ROSARIO-ARCELIA Ot V58. 69 04/22/2015 JAD LIU, ROSARIO-ARCELIA Ot V58. 81 04/22/2015 JAD LIU, ROSARIO-ARCELIA Ot V87. 41 04/22/2015 JAD LIU, ROSARIO-ARCELIA Ot 182. 0 04/22/2015 JAD LIU, ROSARIO-ARCELIA Ot 183. 0 04/22/2015 JAD LUI, ROSARIO-ARCELIA Ot 197. 5 04/22/2015 JAD LIU, ROSARIO-ARCELIA Ot 198. 89 04/22/2015 JAD LIU, ROSARIO-ARCELIA Ot 285. 9 04/22/2015 JAD LIU, ROSARIO-ARCELIA Ot 791. 9 04/22/2015 JAD LIU, ROSARIO-ARCELIA Ot V10. 3 04/22/2015 JAD LIU, ROSARIO-ARCELIA Ot V15. 3 04/22/2015 JAD LIU, ROSARIO-ARCELIA Ot V45. 77 04/22/2015 JAD LIU, ROSARIO-ARCELIA Ot V58. 11 04/22/2015 JAD LIU, ROSARIO-ARCELIA Ot V58. 69 04/22/2015 JAD LIU, ROSARIO-ARCELIA Ot V58. 81 04/22/2015 JAD LIU, ROSARIO-ARCELIA Ot V87. 41 04/24/2015 JAD LIU, ROSARIO-ARCELIA Ot 174. 9 04/24/2015 JAD LIU, ROSARIO-ARCELIA Ot 183. 0 04/30/2015 JAD LIU, ROSARIO-ARCELIA Ot 182. 0 04/30/2015 JAD LIU, ROSARIO-ARCELIA Ot 183. 0 04/30/2015 JAD LIU, ROSARIO-ARCELIA Ot 197. 5 04/30/2015 JAD LIU, ROSARIO-ARCELIA Ot 198. 89 04/30/2015 JAD LIU, ROSARIO-ARCELIA Ot 285. 9 04/30/2015 JAD LIU, ROSARIO-ARCELIA Ot 791. 9 04/30/2015 JDA LIU, ROSARIO-ARCELIA Ot V10. 3 04/30/2015 JAD LIU, ROSARIO-ARCELIA Ot V15. 3 04/30/2015 JAD LIU, ROSARIO-ARCELIA Ot V45. 77 04/30/2015 JAD LIU, ROSARIO-ARCELIA Ot V58. 11 04/30/2015 JAD LIU, ROSARIO-ARCELIA Ot V58. 69 04/30/2015 JAD LIU, ROSARIO-ARCELIA Ot V58. 81 04/30/2015 JAD LIU, ROSARIO-ARCELIA Ot V87. 41 05/29/2015 JAD LIU, DANA Ot 182. 0 05/29/2015 JAD LIU, DANA Ot 183. 0 05/29/2015 JAD LIU, DANA Ot 197. 5 05/29/2015 JAD LIU, DANA Ot 198. 89 05/29/2015 JAD LIU, DANA Ot 285. 9 05/29/2015 JAD LIU, DANA Ot 791. 9 05/29/2015 JAD LIU, DANA Ot V10. 3 05/29/2015 JAD LIU, DANA Ot V15. 3 05/29/2015 JAD LIU, DANA Ot V45. 77 05/29/2015 JAD LIU, DANA Ot V58. 69 05/29/2015 JAD LIU, DANA Ot V58. 81 05/29/2015 JAD LIU, DANA Ot V87. 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 0 MALIGN NEOPL OVARY 06/12/2015 JAD LIU, DANA Ot 197. 5 SEC MALIG DELPHINE LG BOWEL 06/12/2015 JAD LIU, DANA Ot 198. 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 06/12/2015 JAD LIU, DANA Ot 285. 9 ANEMIA NOS 06/12/2015 JAD LIU, DANA Ot 791. 9 ABN URINE FINDINGS NEC 06/12/2015 JAD LIU, DANA Ot V10. 3 HX OF BREAST MALIGNANCY 06/12/2015 JAD LIU, DANA Ot V15. 3 HX OF IRRADIATION 06/12/2015 JAD LIU, DANA Ot V45. 77 ACQRD ABSENCE OF GENITAL ORGANS 06/12/2015 JAD LIU, DANA Ot V58. 69 OTH MED,LT,CURRENT USE 06/12/2015 JAD LIU, DANA Ot V58. 81 FIT/ADJ VASCULAR CATHETER 06/12/2015 JAD LIU, DANA Ot V87. 41 PERSONAL HISTORY OF ANTINEOPLASTIC CHEMO 06/17/2015 JAD LIU, DANA Ot 182. 0 06/17/2015 JAD LIU, ROSARIO-ARCELIA Ot 183. 0 06/17/2015 JAD LIU, ROSARIO-ARCELIA Ot 197. 5 06/17/2015 JAD LIU, ROSARIO-ARCELIA Ot 198. 89 06/17/2015 JAD LIU, ROSARIO-ARCELIA Ot 285. 9 06/17/2015 JAD LIU, ROSARIO-ARCELIA Ot 791. 9 06/17/2015 JAD LIU, ROSARIO-ARCELIA Ot V10. 3 06/17/2015 JAD LIU, ROSARIO-ARCELIA Ot V15. 3 06/17/2015 JAD LIU, ROSARIO-ARCELIA Ot V45. 77 06/17/2015 JAD LIU, ROSARIO-ARCELIA Ot V58. 69 06/17/2015 JAD LIU, ROSARIO-ARCELIA Ot V58. 81 06/17/2015 JAD LIU, ROSARIO-ARCELIA Ot V87. 41 07/08/2015 JAD LIU, ROSARIO-ARCELIA Ot C50.919 07/08/2015 JAD LIU, ROSARIO-ARCELIA Ot C56. 9 07/16/2015 JAD LIU, ROSARIO-ARCELIA Ot C50.919 07/16/2015 JAD LIU, ROSARIO-ARCELIA Ot C56. 9 07/17/2015 JAD LIU, ROSARIO-ARCELIA Ot T85.698A 07/19/2015 JAD LIU, ROSARIO-ARCELIA Ot T85.698A 08/12/2015 JAD LIU, ROSARIO-ARCELIA Ot 182. 0 08/12/2015 JAD LIU, ROSARIO-ARCELIA Ot 183. 0 08/12/2015 JAD LIU, ROSARIO-ARCELIA Ot 197. 5 08/12/2015 JAD LIU, ROSARIO-ARCELIA Ot 198. 89 08/12/2015 JAD LIU, ROSARIO-ARCELIA Ot 285. 9 08/12/2015 JAD LIU, ROSARIO-ARCELIA Ot 791. 9 08/12/2015 JAD LIU, ROSARIO-ARCELIA Ot V10. 3 08/12/2015 JAD LIU, ROSARIO-ARCELIA Ot V15. 3 08/12/2015 JAD LIU, ROSARIO-ARCELIA Ot V45. 77 08/12/2015 JAD LIU, ROSARIO-ARCELIA Ot V58. 69 08/12/2015 JAD LIU, ROSARIO-ARCELIA Ot V58. 81 08/12/2015 JAD LIU, ROSARIO-ARCELIA Ot V87. 41 08/27/2015 JAD LIU, ROSARIO-ARCELIA Ot C55 08/27/2015 JAD LIU, DANA Ot C56. 2 08/27/2015 JDA LIU, DANA Ot C78. 5 08/27/2015 JAD LIU, DANA Ot C78. 6 08/27/2015 JAD LIU, DANA Ot C79. 89 08/27/2015 JAD LIU, DANA Ot D50. 0 08/27/2015 JAD LIU, DANA Ot D63. 1 08/27/2015 JAD LIU, ROSARIORadARCELIA Ot D64. 81 08/27/2015 JAD LIU, ROSARIO-ARCELIA Ot G62. 0 08/27/2015 JAD LIU, ROSARIO-ARCELIA Ot I25. 10 08/27/2015 JAD LIU, DANA Ot K21. 0 08/27/2015 JAD LIU, DANA Ot K44. 9 08/27/2015 JAD LIU, DAAN Ot N18. 9 08/27/2015 JAD LIU, DANA Ot T45.1X5A 08/27/2015 JAD LIU, DANA Ot Z79. 02 08/27/2015 JAD LIU, ROSARIOJEAN-PIERRE Ot Z79. 82 08/27/2015 JAD LIU, DANA Ot Z85. 3 08/27/2015 JAD LIU, DANA Ot Z92. 21 08/27/2015 JAD LIU, DANA Ot Z95. 5 [facility]818 08/29/2015 [facility] Ot K22.2 ESOPHAGEAL OBSTRUCTION 08/29/2015 [facility] K44.9 DIAPHRAGMATIC HERNIA WITHOUT OBSTRUCTION 09/22/2015 JAD LIU, DANA Ot C55 MALIGNANT NEOPLASM OF UTERUS, PART UNSPE 09/22/2015 JAD LIU, DANA Moyer C56. 2 MALIGNANT NEOPLASM OF LEFT OVARY 09/22/2015 JAD LIU, DANA Moyer C78. 5 SECONDARY MALIGNANT NEOPLASM OF LARGE IN 09/22/2015 JAD LIU, DANA Moyer C78. 6 SECONDARY MALIGNANT NEOPLASM OF RETROPER 09/22/2015 JAD LIU, DANA Ot C79. 89 SECONDARY MALIGNANT NEOPLASM OF OTHER SP 09/22/2015 JAD LIU, DANA Moyer D50. 0 IRON DEFICIENCY ANEMIA SECONDARY TO BLOO 09/22/2015 JAD LIU, DANA Ot D63. 1 ANEMIA IN CHRONIC KIDNEY DISEASE 09/22/2015 JAD LIU, DANA Ot D64. 81 ANEMIA DUE TO ANTINEOPLASTIC CHEMOTHERAP 09/22/2015 JAD LIU, DANA Ot G62. 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 0 GASTRO-ESOPHAGEAL REFLUX DISEASE WITH ES 09/22/2015 JAD LIU, DANA Moyer K44. 9 DIAPHRAGMATIC HERNIA WITHOUT OBSTRUCTION 09/22/2015 JAD LIU, DANA Moyer N18. 9 CHRONIC KIDNEY DISEASE, UNSPECIFIED 09/22/2015 JAD LIU, DANA Moyer T45.1X5A ADVERSE EFFECT OF ANTINEOPLASTIC AND IMM 09/22/[address] MD Ot Z79. 02 TELLER VAULT (CURRENT) USE OF ANTITHROMBOTI 09/22/[address] MD, Ot Z79. 82 TELLER VAULT (CURRENT) USE OF ASPIRIN 09/22/2015 JAD LIU, DANA Moyer Z85. 3 PERSONAL HISTORY OF MALIGNANT NEOPLASM O 09/22/2015 JAD LIU, DANA Ot Z92. 21 PERSONAL HISTORY OF ANTINEOPLASTIC CHEMO 09/22/2015 JAD LIU, DANA Ot Z95. 5 PRESENCE OF CORONARY ANGIOPLASTY IMPLANT 09/25/2015 JAD LIU, DANA Ot C55 09/25/2015 JAD LIU, DANA Ot C56. 2 09/25/2015 JAD LIU, DANA Ot C78. 5 09/25/2015 JAD LIU, DANA Ot C78. 6 09/25/2015 JAD LIU, DANA Ot C79. 89 09/25/2015 JAD LIU, DANA Ot D50. 0 09/25/2015 JAD LIU, DANA Ot D63. 1 09/25/2015 JAD LIU, DANA Ot D64. 81 09/25/2015 JAD LIU, DANA Ot G62. 0 09/25/2015 JAD LIU, DANA Ot I25. 10 09/25/2015 JAD LIU, DANA Ot K21. 0 09/25/2015 JAD LIU, MORROARCELIA Ot K44. 9 09/25/2015 JAD LIU, MARLENE-ARCELIA Ot N18. 9 09/25/2015 JAD LIU, MARLENE-ARCELIA Ot T45.1X5A 09/25/2015 JAD LIU, MARLENE-ARCELIA Ot Z79. 02 09/25/2015 JAD LIU, MARLENE-ARCELIA Ot Z79. 82 09/25/2015 JAD LIU, MARLENE-ARCELIA Ot Z85. 3 09/25/2015 JAD LIU, ROSARIO-ARCELIA Ot Z92. 21 09/25/2015 JAD LIU, ROSARIO-ARCELIA Ot Z95. 5 10/25/2015 JAD LIU, ROSARIO-ARCELIA Ot C55 10/25/2015 JAD LIU, MARLENE-ARCELIA Ot C56. 2 10/25/2015 JAD LIU, MARLENE-ARCEILA Ot C78. 5 10/25/2015 JAD LIU, MARLENE-ARCELIA Ot C78. 6 10/25/2015 JAD LIU, MARLENE-ARCELIA Ot C79. 89 10/25/2015 JAD LIU, MARLENE-ARCELIA Ot D50. 0 10/25/2015 JAD LIU, MARLENE-ARCELIA Ot D63. 1 10/25/2015 JAD LIU, MARLENE-ARCELIA Ot D64. 81 10/25/2015 JAD LIU, MARLENE-ARCELIA Ot G62. 0 10/25/2015 JAD LIU, MARLENE-ARCELIA Ot I25. 10 10/25/2015 JAD LIU, MARLENE-ARCELIA Ot K21. 0 10/25/2015 JAD LIU, MARLENE-ARCELIA Ot K44. 9 10/25/2015 JAD LIU, MARLENE-ARCELIA Ot N18. 9 10/25/2015 JAD LIU, MARLENE-ARCELIA Ot T45.1X5A 10/25/2015 JAD LIU, MARLENE-ARCELIA Ot Z45. 2 10/25/2015 JAD LIU, MARLENE-ARCELIA Ot Z79. 02 10/25/2015 JAD LIU, MARLENE-ARCELIA Ot Z79. 82 10/25/2015 JAD LIU, MARLENE-ARCELIA Ot Z85. 3 10/25/2015 JAD LIU, ROSARIO-ARCELIA Ot Z92. 21 10/25/2015 JAD LIU, ROSARIO-ARCELIA Ot Z95. 5 11/20/2015 JAD LIU, ROSARIO-ARCELIA Ot C50.919 11/20/2015 XUN DANA LIU Ot C56. 9 11/27/[address] MD, Ot Z12. 31 12/23/[address] MD, Ot C55 MALIGNANT NEOPLASM OF UTERUS, PART UNSPE 12/23/[address] MD, Ot C56. 2 MALIGNANT NEOPLASM OF LEFT OVARY 12/23/[address] MD, Ot C78. 5 SECONDARY MALIGNANT NEOPLASM OF LARGE IN 12/23/[address] MD, Ot C78. 6 SECONDARY MALIGNANT NEOPLASM OF RETROPER 12/23/[address] MD, Ot C79. 89 SECONDARY MALIGNANT NEOPLASM OF OTHER SP 12/23/[address] MD, Ot D50. 0 IRON DEFICIENCY ANEMIA SECONDARY TO BLOO 12/23/[address] MD, Ot D63. 1 ANEMIA IN CHRONIC KIDNEY DISEASE 12/23/[address] MD, Ot D64. 81 ANEMIA DUE TO ANTINEOPLASTIC CHEMOTHERAP 12/23/[address] MD, Ot G62. 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 0 GASTRO-ESOPHAGEAL REFLUX DISEASE WITH ES 12/23/[address] MD, Ot K44. 9 DIAPHRAGMATIC HERNIA WITHOUT OBSTRUCTION 12/23/[address] MD, Ot N18. 9 CHRONIC KIDNEY DISEASE, UNSPECIFIED 12/23/[address] MD, Ot T45.1X5A ADVERSE EFFECT OF ANTINEOPLASTIC AND IMM 12/23/[address] MD, Ot Z45. 2 ENCOUNTER FOR ADJUSTMENT AND MANAGEMENT 12/23/[address] MD, Ot Z79. 02 CUSTODIAL (CURRENT) USE OF ANTITHROMBOTI 12/23/[address] MD, Ot Z79. 82 CUSTODIAL (CURRENT) USE OF ASPIRIN 12/23/[address] MD, Ot Z85. 3 PERSONAL HISTORY OF MALIGNANT NEOPLASM O 12/23/[address] MD, Ot Z92. 21 PERSONAL HISTORY OF ANTINEOPLASTIC CHEMO 12/23/[address] MD, Ot Z95. 5 PRESENCE OF CORONARY ANGIOPLASTY IMPLANT 01/28/[address] MD, Ot C55 MALIGNANT NEOPLASM OF UTERUS, PART UNSPE 01/28/[address] MD, Ot C56. 2 MALIGNANT NEOPLASM OF LEFT OVARY 01/28/[address] MD, Ot C78. 5 SECONDARY MALIGNANT NEOPLASM OF LARGE IN 01/28/[address] MD, Ot C78. 6 SECONDARY MALIGNANT NEOPLASM OF RETROPER 01/28/[address] MD, Ot C79. 89 SECONDARY MALIGNANT NEOPLASM OF OTHER SP 01/28/[address] MD, Ot D50. 0 IRON DEFICIENCY ANEMIA SECONDARY TO BLOO 01/28/[address] MD, Ot D63. 1 ANEMIA IN CHRONIC KIDNEY DISEASE 01/28/[address] MD, Ot D64. 81 ANEMIA DUE TO ANTINEOPLASTIC CHEMOTHERAP 01/28/[address] MD, Ot G62. 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 0 GASTRO-ESOPHAGEAL REFLUX DISEASE WITH ES 01/28/[address] MD, Ot K44. 9 DIAPHRAGMATIC HERNIA WITHOUT OBSTRUCTION 01/28/[address] MD, Ot N18. 9 CHRONIC KIDNEY DISEASE, UNSPECIFIED 01/28/[address] MD, Ot T45.1X5A ADVERSE EFFECT OF ANTINEOPLASTIC AND IMM 01/28/[address] MD, Ot Z45. 2 ENCOUNTER FOR ADJUSTMENT AND MANAGEMENT 01/28/[address] MD, Ot Z79. 02 CUSTODIAL (CURRENT) USE OF ANTITHROMBOTI 01/28/[address] MD, Ot Z79. 82 CUSTODIAL (CURRENT) USE OF ASPIRIN 01/28/[address] MD, Ot Z85. 3 PERSONAL HISTORY OF MALIGNANT NEOPLASM O 01/28/[address] MD, Ot Z92. 21 PERSONAL HISTORY OF ANTINEOPLASTIC CHEMO 01/28/[address] MD, Ot Z95. 5 PRESENCE OF CORONARY ANGIOPLASTY IMPLANT 02/05/[address] MD, Ot C55 MALIGNANT NEOPLASM OF UTERUS, PART UNSPE 02/05/[address] MD, Ot C56. 2 MALIGNANT NEOPLASM OF LEFT OVARY 02/05/[address] MD, Ot C78. 5 SECONDARY MALIGNANT NEOPLASM OF LARGE IN 02/05/[address] MD, Ot C78. 6 SECONDARY MALIGNANT NEOPLASM OF RETROPER 02/05/[address] MD, Ot C79. 89 SECONDARY MALIGNANT NEOPLASM OF OTHER SP 02/05/[address] MD, Ot D50. 0 IRON DEFICIENCY ANEMIA SECONDARY TO BLOO 02/05/[address] MD, Ot D63. 1 ANEMIA IN CHRONIC KIDNEY DISEASE 02/05/[address] MD, Ot D64. 81 ANEMIA DUE TO ANTINEOPLASTIC CHEMOTHERAP 02/05/[address] MD, Ot G62. 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 0 GASTRO-ESOPHAGEAL REFLUX DISEASE WITH ES 02/05/[address] MD, Ot K44. 9 DIAPHRAGMATIC HERNIA WITHOUT OBSTRUCTION 02/05/[address] MD, Ot N18. 9 CHRONIC KIDNEY DISEASE, UNSPECIFIED 02/05/[address] MD, Ot T45.1X5A ADVERSE EFFECT OF ANTINEOPLASTIC AND IMM 02/05/[address] MD, Ot Z45. 2 ENCOUNTER FOR ADJUSTMENT AND MANAGEMENT 02/05/[address] MD, Ot Z79. 02 CUSTODIAL (CURRENT) USE OF ANTITHROMBOTI 02/05/[address] MD, Ot Z79. 82 CUSTODIAL (CURRENT) USE OF ASPIRIN 02/05/[address] MD, Ot Z85. 3 PERSONAL HISTORY OF MALIGNANT NEOPLASM O 02/05/[address] MD, Ot Z92. 21 PERSONAL HISTORY OF ANTINEOPLASTIC CHEMO 02/05/[address] MD, Ot Z95. 5 PRESENCE OF CORONARY ANGIOPLASTY IMPLANT 02/26/[address] MD, Ot C55 MALIGNANT NEOPLASM OF UTERUS, PART UNSPE 02/26/[address] MD, Ot C56. 2 MALIGNANT NEOPLASM OF LEFT OVARY 02/26/[address] MD, Ot C78. 5 SECONDARY MALIGNANT NEOPLASM OF LARGE IN 02/26/[address] MD, Ot C78. 6 SECONDARY MALIGNANT NEOPLASM OF RETROPER 02/26/[address] MD, Ot C79. 89 SECONDARY MALIGNANT NEOPLASM OF OTHER SP 02/26/[address] MD, Ot D50. 0 IRON DEFICIENCY ANEMIA SECONDARY TO BLOO 02/26/[address] MD, Ot D63. 1 ANEMIA IN CHRONIC KIDNEY DISEASE 02/26/[address] MD, Ot D64. 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 0 GASTRO-ESOPHAGEAL REFLUX DISEASE WITH ES 02/26/[address] MD, Ot K44. 9 DIAPHRAGMATIC HERNIA WITHOUT OBSTRUCTION 02/26/[address] MD, Ot N18. 9 CHRONIC KIDNEY DISEASE, UNSPECIFIED 02/26/[address] MD, Ot Z45. 2 ENCOUNTER FOR ADJUSTMENT AND MANAGEMENT 02/26/[address] MD, Ot Z79. 02 TELLER VAULT (CURRENT) USE OF ANTITHROMBOTI 02/26/[address] MD, Ot Z79. 82 CUSTODIAL (CURRENT) USE OF ASPIRIN 02/26/[address] MD, Ot Z85. 3 PERSONAL HISTORY OF MALIGNANT NEOPLASM O 02/26/[address] MD, Ot Z92. 21 PERSONAL HISTORY OF ANTINEOPLASTIC CHEMO 02/26/[address] MD, Ot Z95. 5 PRESENCE OF CORONARY ANGIOPLASTY IMPLANT 05/04/[address] MD, Ot C55 MALIGNANT NEOPLASM OF UTERUS, PART UNSPE 05/04/[address] MD, Ot C56. 2 MALIGNANT NEOPLASM OF LEFT OVARY 05/04/[address] MD, Ot C78. 5 SECONDARY MALIGNANT NEOPLASM OF LARGE IN 05/04/[address] MD, Ot C78. 6 SECONDARY MALIGNANT NEOPLASM OF RETROPER 05/04/[address] MD, Ot C79. 89 SECONDARY MALIGNANT NEOPLASM OF OTHER SP 05/04/[address] MD, Ot D50. 0 IRON DEFICIENCY ANEMIA SECONDARY TO BLOO 05/04/2016 XUN MD, ROSARIO-ARCELIA Ot D63. 1 ANEMIA IN CHRONIC KIDNEY DISEASE 05/04/[address] MD, Ot D64. 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 0 GASTRO-ESOPHAGEAL REFLUX DISEASE WITH ES 05/04/[address] MD, Ot K44. 9 DIAPHRAGMATIC HERNIA WITHOUT OBSTRUCTION 05/04/[address] MD, Ot N18. 9 CHRONIC KIDNEY DISEASE, UNSPECIFIED 05/04/[address] MD, Ot Z45. 2 ENCOUNTER FOR ADJUSTMENT AND MANAGEMENT 05/04/[address] MD, Ot Z79. 02 CUSTODIAL (CURRENT) USE OF ANTITHROMBOTI 05/04/[address] MD, Ot Z79. 82 CUSTODIAL (CURRENT) USE OF ASPIRIN 05/04/[address] MD, Ot Z85. 3 PERSONAL HISTORY OF MALIGNANT NEOPLASM O 05/04/[address] MD, Ot Z92. 21 PERSONAL HISTORY OF ANTINEOPLASTIC CHEMO 05/04/[address] MD, Ot Z95. 5 PRESENCE OF CORONARY ANGIOPLASTY IMPLANT 05/05/[address] MD, Ot C55 MALIGNANT NEOPLASM OF UTERUS, PART UNSPE 05/05/[address] MD, Ot C56. 2 MALIGNANT NEOPLASM OF LEFT OVARY 05/05/[address] MD, Ot C78. 5 SECONDARY MALIGNANT NEOPLASM OF LARGE IN 05/05/[address] MD, Ot C78. 6 SECONDARY MALIGNANT NEOPLASM OF RETROPER 05/05/[address] MD, Ot C79. 89 SECONDARY MALIGNANT NEOPLASM OF OTHER SP 05/05/[address] MD, Ot D50. 0 IRON DEFICIENCY ANEMIA SECONDARY TO BLOO 05/05/[address] MD, Ot D63. 1 ANEMIA IN CHRONIC KIDNEY DISEASE 05/05/[address] MD, Ot D64. 81 ANEMIA DUE TO ANTINEOPLASTIC CHEMOTHERAP 05/05/[address] MD, Ot I25. 10 ATHSCL HEART DISEASE OF [place] CORONARY 05/05/[address] MD, Ot K21. 0 GASTRO-ESOPHAGEAL REFLUX DISEASE WITH ES 05/05/[address] MD, Ot K44. 9 DIAPHRAGMATIC HERNIA WITHOUT OBSTRUCTION 05/05/[address] MD, Ot N18. 9 CHRONIC KIDNEY DISEASE, UNSPECIFIED 05/05/[address] MD, Ot Z45. 2 ENCOUNTER FOR ADJUSTMENT AND MANAGEMENT 05/05/[address] MD, Ot Z79. 02 CUSTODIAL (CURRENT) USE OF ANTITHROMBOTI 05/05/[address] MD, Ot Z79. 82 CUSTODIAL (CURRENT) USE OF ASPIRIN 05/05/[address] MD, Ot Z85. 3 PERSONAL HISTORY OF MALIGNANT NEOPLASM O 05/05/[address] MD, Ot Z92. 21 PERSONAL HISTORY OF ANTINEOPLASTIC CHEMO 05/05/[address] MD, Ot Z95. 5 PRESENCE OF CORONARY ANGIOPLASTY IMPLANT 05/10/[address] MD, Ot C55 MALIGNANT NEOPLASM OF UTERUS, PART UNSPE 05/10/[address] MD, Ot C56. 2 MALIGNANT NEOPLASM OF LEFT OVARY 05/10/[address] MD, Ot C78. 5 SECONDARY MALIGNANT NEOPLASM OF LARGE IN 05/10/[address] MD, Ot C78. 6 SECONDARY MALIGNANT NEOPLASM OF RETROPER 05/10/[address] MD, Ot C79. 89 SECONDARY MALIGNANT NEOPLASM OF OTHER SP 05/10/[address] MD, Ot D50. 0 IRON DEFICIENCY ANEMIA SECONDARY TO BLOO 05/10/[address] MD, Ot D63. 1 ANEMIA IN CHRONIC KIDNEY DISEASE 05/10/[address] MD, Ot D64. 81 ANEMIA DUE TO ANTINEOPLASTIC CHEMOTHERAP 05/10/[address] MD, Ot I25. 10 ATHSCL HEART DISEASE OF [place] CORONARY 05/10/[address] MD, Ot K21. 0 GASTRO-ESOPHAGEAL REFLUX DISEASE WITH ES 05/10/[address] MD, Ot K44. 9 DIAPHRAGMATIC HERNIA WITHOUT OBSTRUCTION 05/10/[address] MD, Ot N18. 9 CHRONIC KIDNEY DISEASE, UNSPECIFIED 05/10/[address] MD, Ot Z45. 2 ENCOUNTER FOR ADJUSTMENT AND MANAGEMENT 05/10/[address] MD, Ot Z79. 02 TELLER [place]ULT (CURRENT) USE OF ANTITHROMBOTI 05/10/[address] MD, Ot Z79. 82 CUSTODIAL (CURRENT) USE OF ASPIRIN 05/10/[address] MD, Ot Z85. 3 PERSONAL HISTORY OF MALIGNANT NEOPLASM O 05/10/[address] MD, Ot Z92. 21 PERSONAL HISTORY OF ANTINEOPLASTIC CHEMO 05/10/[address] MD, Ot Z95. 5 PRESENCE OF CORONARY ANGIOPLASTY IMPLANT 05/19/[address] MD, Ot C55 MALIGNANT NEOPLASM OF UTERUS, PART UNSPE 05/19/[address] MD, Ot C56. 2 MALIGNANT NEOPLASM OF LEFT OVARY 05/19/[address] MD, Ot C78. 5 SECONDARY MALIGNANT NEOPLASM OF LARGE IN 05/19/[address] MD, Ot C78. 6 SECONDARY MALIGNANT NEOPLASM OF RETROPER 05/19/[address] MD, Ot C79. 89 SECONDARY MALIGNANT NEOPLASM OF OTHER SP 05/19/[address] MD, Ot D50. 0 IRON DEFICIENCY ANEMIA SECONDARY TO BLOO 05/19/[address] MD, Ot D63. 1 ANEMIA IN CHRONIC KIDNEY DISEASE 05/19/[address] MD, Ot D64. 81 ANEMIA DUE TO ANTINEOPLASTIC CHEMOTHERAP 05/19/[address] MD, Ot I25. 10 ATHSCL HEART DISEASE OF [place] CORONARY 05/19/[address] MD, Ot K21. 0 GASTRO-ESOPHAGEAL REFLUX DISEASE WITH ES 05/19/[address] MD, Ot K44. 9 DIAPHRAGMATIC HERNIA WITHOUT OBSTRUCTION 05/19/[address] MD, Ot N18. 9 CHRONIC KIDNEY DISEASE, UNSPECIFIED 05/19/[address] MD, Ot Z45. 2 ENCOUNTER FOR ADJUSTMENT AND MANAGEMENT 05/19/[address] MD, Ot Z79. 02 CUSTODIAL (CURRENT) USE OF ANTITHROMBOTI 05/19/[address] MD, Ot Z79. 82 TELLER [place] (CURRENT) USE OF ASPIRIN 05/19/[address] MD, Ot Z85. 3 PERSONAL HISTORY OF MALIGNANT NEOPLASM O 05/19/[address] MD, Ot Z92. 21 PERSONAL HISTORY OF ANTINEOPLASTIC CHEMO 05/19/[address] MD, Ot Z95. 5 PRESENCE OF CORONARY ANGIOPLASTY IMPLANT 05/27/[address] MD, Ot C55 MALIGNANT NEOPLASM OF UTERUS, PART UNSPE 05/27/[address] MD, Ot C56. 2 MALIGNANT NEOPLASM OF LEFT OVARY 05/27/[address] MD, Ot C78. 5 SECONDARY MALIGNANT NEOPLASM OF LARGE IN 05/27/[address] MD, Ot C78. 6 SECONDARY MALIGNANT NEOPLASM OF RETROPER 05/27/[address] MD, Ot C79. 89 SECONDARY MALIGNANT NEOPLASM OF OTHER SP 05/27/[address] MD, Ot D50. 0 IRON DEFICIENCY ANEMIA SECONDARY TO BLOO 05/27/[address] MD, Ot D63. 1 ANEMIA IN CHRONIC KIDNEY DISEASE 05/27/[address] MD, Ot D64. 81 ANEMIA DUE TO ANTINEOPLASTIC CHEMOTHERAP 05/27/[address] MD, Ot I25. 10 ATHSCL HEART DISEASE OF [place] CORONARY 05/27/[address] MD, Ot K21. 0 GASTRO-ESOPHAGEAL REFLUX DISEASE WITH ES 05/27/[address] MD, Ot K44. 9 DIAPHRAGMATIC HERNIA WITHOUT OBSTRUCTION 05/27/[address] MD, Ot N18. 9 CHRONIC KIDNEY DISEASE, UNSPECIFIED 05/27/[address] MD, Ot Z45. 2 ENCOUNTER FOR ADJUSTMENT AND MANAGEMENT 05/27/[address] MD, Ot Z79. 02 CUSTODIAL (CURRENT) USE OF ANTITHROMBOTI 05/27/[address] MD, Ot Z79. 82 TELLER [place] (CURRENT) USE OF ASPIRIN 05/27/[address] MD, Ot Z85. 3 PERSONAL HISTORY OF MALIGNANT NEOPLASM O 05/27/[address] MD, Ot Z92. 21 PERSONAL HISTORY OF ANTINEOPLASTIC CHEMO 05/27/[address] MD, Ot Z95. 5 PRESENCE OF CORONARY ANGIOPLASTY IMPLANT 06/02/[address] MD, Ot C56. 1 MALIGNANT NEOPLASM OF RIGHT OVARY 06/02/[address] MD, Ot N18. 9 CHRONIC KIDNEY DISEASE, UNSPECIFIED 06/07/[address] MD, Ot C56. 1 MALIGNANT NEOPLASM OF RIGHT OVARY 06/07/[address] MD, Ot N18. 9 CHRONIC KIDNEY DISEASE, UNSPECIFIED 06/10/[address] MD, Ot C56. 1 MALIGNANT NEOPLASM OF RIGHT OVARY 06/10/[address] MD, Ot N18. 9 CHRONIC KIDNEY DISEASE, UNSPECIFIED 06/10/[address] MD, Ot C56. 1 MALIGNANT NEOPLASM OF RIGHT OVARY 06/10/[address] MD, Ot N18. 9 CHRONIC KIDNEY DISEASE, UNSPECIFIED 06/10/[address] MD, Ot C56. 1 MALIGNANT NEOPLASM OF RIGHT OVARY 06/10/[address] MD, Ot N18. 9 CHRONIC KIDNEY DISEASE, UNSPECIFIED 06/16/2016 TILLAR DOARIELLA Ot C56. 2 MALIGNANT NEOPLASM OF LEFT OVARY 06/16/2016 [facility].818 ENCOUNTER FOR OTHER PREPROCEDURAL EXAMIN 06/17/[address] MD, Ot C56. 1 MALIGNANT NEOPLASM OF RIGHT OVARY 06/17/[address] MD, Ot N18. 9 CHRONIC KIDNEY DISEASE, UNSPECIFIED 06/17/[address] MD, Ot C55 MALIGNANT NEOPLASM OF UTERUS, PART UNSPE 06/17/[address] MD, Ot C56. 2 MALIGNANT NEOPLASM OF LEFT OVARY 06/17/[address] MD, Ot C78. 5 SECONDARY MALIGNANT NEOPLASM OF LARGE IN 06/17/[address] MD, Ot C78. 6 SECONDARY MALIGNANT NEOPLASM OF RETROPER 06/17/[address] MD, Ot C79. 89 SECONDARY MALIGNANT NEOPLASM OF OTHER SP 06/17/[address] MD, Ot D50. 0 IRON DEFICIENCY ANEMIA SECONDARY TO BLOO 06/17/[address] MD, Ot D63. 1 ANEMIA IN CHRONIC KIDNEY DISEASE 06/17/[address] MD, Ot D64. 81 ANEMIA DUE TO ANTINEOPLASTIC CHEMOTHERAP 06/17/[address] MD, Ot I25. 10 ATHSCL HEART DISEASE OF [place] CORONARY 06/17/[address] MD, Ot K21. 0 GASTRO-ESOPHAGEAL REFLUX DISEASE WITH ES 06/17/[address] MD Ot K44. 9 DIAPHRAGMATIC HERNIA WITHOUT OBSTRUCTION 06/17/[address] MD Ot N18. 9 CHRONIC KIDNEY DISEASE, UNSPECIFIED 06/17/[address] MD Ot Z45. 2 ENCOUNTER FOR ADJUSTMENT AND MANAGEMENT 06/17/[address] MD Ot Z79. 02 CUSTODIAL (CURRENT) USE OF ANTITHROMBOTI 06/17/[address] MD, Ot Z79. 82 CUSTODIAL (CURRENT) USE OF ASPIRIN 06/17/[address] MD Ot Z85. 3 PERSONAL HISTORY OF MALIGNANT NEOPLASM O 06/17/[address] MD Ot Z92. 21 PERSONAL HISTORY OF ANTINEOPLASTIC CHEMO 06/17/[address] MD Ot Z95. 5 PRESENCE OF CORONARY ANGIOPLASTY IMPLANT 06/18/2016 Ot 174.9 GEMMA GN NEOPL BREAST NOS 06/18/2016 Ot V76.12 OTH SCREEN MAMMO- MALIGN NEOPLASM OF JORGE LUIS 06/18/2016 Ot 174.9 GEMMA GN NEOPL BREAST NOS 06/18/2016 Ot 553.3 DIAP HRAGMATIC HERNIA 06/18/2016 Ot 793.6 NOSP (ABN) FINDINGS ON RADIOLOGICAL OT 06/18/2016 Ot 795.89 OTH ER ABNORMAL TUMOR MARKERS 06/18/2016 Ot V10.3 HX O F BREAST MALIGNANCY 06/18/2016 Ot V58.69 OTH MED,LT,CURRENT USE 06/18/2016 Ot V67.1 RADI OTHERAPY FOLLOW-UP 06/18/2016 Ot V67.2 CHEM OTHERAPY FOLLOW-UP 06/18/2016 Ot 182.0 GEMMA G DELPHINE CORPUS UTERI 06/18/2016 Ot 553.3 DIAP HRAGMATIC HERNIA 06/18/2016 Ot V10.3 HX O F BREAST MALIGNANCY 06/18/2016 Ot V15.3 HX O F IRRADIATION 06/18/2016 Ot V58.69 OTH MED,LT,CURRENT USE 06/18/2016 Ot V87.41 PER FELICE HISTORY OF ANTINEOPLASTIC CHEMO 06/18/2016 Ot 182.0 GEMMA G DELPHINE CORPUS UTERI 06/18/2016 Ot V10.3 HX O F BREAST MALIGNANCY 06/18/2016 Ot 182.0 GEMMA G DELPHINE CORPUS UTERI 06/18/2016 Ot V72.83 EXA M PRE- OPERATIVE NEC 06/18/2016 Ot V74.8 SCRE EN-BACTERIAL DIS NEC 06/18/2016 Ot 174.9 GEMMA GN NEOPL BREAST NOS 06/18/2016 Ot 530.11 REF LUX ESOPHAGITIS 06/18/2016 Ot 562.10 DIV ERTICULOSIS COLON (W/O MENT OF HEMORR 06/18/2016 Ot 182.0 GEMMA G DELPHINE CORPUS UTERI 06/18/2016 Ot 183.0 GEMMA GN NEOPL OVARY 06/18/2016 Ot 197.5 SEC MALIG DELPHINE LG BOWEL 06/18/2016 Ot 198.89 SEC ONDARY MALIG DELPHINE NEC 06/18/2016 Ot 285.9 ANEM IA NOS 06/18/2016 Ot 287.5 THRO MBOCYTOPENIA NOS 06/18/2016 Ot V10.3 HX O F BREAST MALIGNANCY 06/18/2016 Ot V15.3 HX O F IRRADIATION 06/18/[address] ABSENCE OF GENITAL ORGANS 06/18/2016 Ot V58.69 OTH MED,LT,CURRENT USE 06/18/2016 Ot V87.41 PER FELICE HISTORY OF ANTINEOPLASTIC CHEMO 06/18/2016 Ot V72.84 EXA M PRE- OPERATIVE NOS 06/18/2016 Ot 182.0 GEMMA G DELPHINE CORPUS UTERI 06/18/2016 Ot 183.0 GEMMA GN NEOPL OVARY 06/18/2016 Ot V10.3 HX O F BREAST MALIGNANCY 06/18/2016 Ot V76.11 SCR N MAMMO-HIGH RISK PT, MALIGNANT NEOPL 06/18/2016 Ot 183.0 GEMMA GN NEOPL OVARY 06/18/2016 Ot 786.09 RES PIRATORY ABNORM NEC 06/18/2016 Ot 786.09 RES PIRATORY ABNORM NEC 06/18/2016 JAD LIU, MORROARCELIA Ot 183. 0 MALIGN NEOPL OVARY 06/18/2016 BHARAT LIU, FERNY Gordon Ot V72.84 EXAM PRE-OPERATIVE NOS 06/18/2016 BHARAT LIU, FERNY Gordon Ot V72.84 EXAM PRE-OPERATIVE NOS 06/18/2016 BHARAT LIU, FERNY Gordon Ot V72.84 EXAM PRE-OPERATIVE NOS 06/18/2016 JAD LIU, MORROARCELIA Ot 721. 0 CERVICAL SPONDYLOSIS 06/18/2016 JAD LIU, DANA Ot V76. 12 OTH SCREEN MAMMO-MALIGN NEOPLASM OF JORGE LUIS 06/18/2016 BHARAT LIU, FERNY Gordon Ot V72.84 EXAM PRE-OPERATIVE NOS 06/18/2016 BHARAT LIU, FERNY S Ot V72.84 EXAM PRE-OPERATIVE NOS 06/18/2016 BHARAT LIU, FERNY Gordon Ot V72.84 EXAM PRE-OPERATIVE NOS 06/18/2016 ALFREDO CADENA Ot 585.3 CHRONIC KIDNEY DISEASE, STAGE III (MODER 06/18/2016 ALFREDO CADENA Ot 793.5 NOSP (ABN) FINDINGS ON RADIOLOGICAL OT 06/18/2016 BHARAT LIU, FERNY Gordon Ot 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 06/18/2016 BHARAT LIU, FERNY Gordon Ot V72.84 EXAM PRE-OPERATIVE NOS 06/18/[address] MD Ot 174. 9 MALIGN NEOPL BREAST NOS 06/18/[address] MD Ot V76. 11 SCRN MAMMO-HIGH RISK PT, MALIGNANT NEOPL 06/18/[address] MD Ot 183. 0 MALIGN NEOPL OVARY 06/18/2016 CORYMA, NALINI L REFRIGERATOR ROOM CLERK Ot 272.4 HYPERLIPIDEMIA NEC/NOS 06/18/2016 JAZ, NALINI L REFRIGERATOR ROOM CLERK Ot 401.9 HYPERTENSION NOS 06/18/2016 JAZ, NALINI L REFRIGERATOR ROOM CLERK Ot 414.9 CHR ISCHEMIC HRT DIS NOS 06/18/2016 JAZ NALINI L REFRIGERATOR ROOM CLERK Ot 437.9 CEREBROVASC DISEASE NOS 06/18/2016 JAZ, NALINI L REFRIGERATOR ROOM CLERK Ot 272.4 HYPERLIPIDEMIA NEC/NOS 06/18/2016 JAZ, NALINI L REFRIGERATOR ROOM CLERK Ot 401.9 HYPERTENSION NOS 06/18/2016 JAZ, NALINI L REFRIGERATOR ROOM CLERK Ot 414.00 CORON ATHEROSCLER NOS TYPE VESSEL, NATIV 06/18/2016 JAZ NALINI L REFRIGERATOR ROOM CLERK Ot 437.9 CEREBROVASC DISEASE NOS 06/18/[address] MD Ot 174. 9 MALIGN NEOPL BREAST NOS 06/18/[address] MD Ot 183. 0 MALIGN NEOPL OVARY 06/18/2016 FERNY NICHOLSON MD Ot 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 06/18/2016 BHARAT LIU, FERNY Gordon Ot V72.84 EXAM PRE-OPERATIVE NOS 06/18/[address] MD, Ot C50.919 MALIGNANT NEOPLASM OF UNSP SITE OF UNSPE 06/18/[address] MD, Ot C56. 9 MALIGNANT NEOPLASM OF UNSPECIFIED OVARY 06/18/[address] MD, Ot T85.698A [facility] COMPL OF INTERNAL PROSTH DEV/GRFT, 06/18/2016 TEODORO HERNANDEZ DO Ot Z01.818 ENCOUNTER FOR OTHER PREPROCEDURAL EXAMIN 06/18/[address] MD, Ot C56. 2 MALIGNANT NEOPLASM OF LEFT OVARY 06/18/[address] MD, Ot Z85. 3 PERSONAL HISTORY OF MALIGNANT NEOPLASM O 06/18/[address] MD, Ot C50.919 MALIGNANT NEOPLASM OF UNSP SITE OF UNSPE 06/18/[address] MD, Ot C56. 9 MALIGNANT NEOPLASM OF UNSPECIFIED OVARY 06/18/[address] MD, Ot Z12. 31 ENCNTR SCREEN MAMMOGRAM FOR MALIGNANT NE 06/18/[address] MD, Ot C56. 1 MALIGNANT NEOPLASM OF RIGHT OVARY 06/18/[address] MD, Ot N18. 9 CHRONIC KIDNEY DISEASE, UNSPECIFIED 06/18/[address] MD, Ot C55 MALIGNANT NEOPLASM OF UTERUS, PART UNSPE 06/18/[address] MD, Ot C56. 2 MALIGNANT NEOPLASM OF LEFT OVARY 06/18/[address] MD, Ot C78. 5 SECONDARY MALIGNANT NEOPLASM OF LARGE IN 06/18/[address] MD, Ot C78. 6 SECONDARY MALIGNANT NEOPLASM OF RETROPER 06/18/[address] MD, Ot C79. 89 SECONDARY MALIGNANT NEOPLASM OF OTHER SP 06/18/[address] MD, Ot D50. 0 IRON DEFICIENCY ANEMIA SECONDARY TO BLOO 06/18/[address] MD, Ot D63. 1 ANEMIA IN CHRONIC KIDNEY DISEASE 06/18/[address] MD, Ot D64. 81 ANEMIA DUE TO ANTINEOPLASTIC CHEMOTHERAP 06/18/[address] MD, Ot I25. 10 ATHSCL HEART DISEASE OF [place] CORONARY 06/18/[address] MD, Ot K21. 0 GASTRO-ESOPHAGEAL REFLUX DISEASE WITH ES 06/18/[address] MD, Ot K44. 9 DIAPHRAGMATIC HERNIA WITHOUT OBSTRUCTION 06/18/[address] MD, Ot N18. 9 CHRONIC KIDNEY DISEASE, UNSPECIFIED 06/18/[address] MD, Ot Z45. 2 ENCOUNTER FOR ADJUSTMENT AND MANAGEMENT 06/18/[address] MD, Ot Z79. 02 TELLER VAULT (CURRENT) USE OF ANTITHROMBOTI 06/18/[address] MD, Ot Z79. 82 CUSTODIAL (CURRENT) USE OF ASPIRIN 06/18/[address] MD, Ot Z85. 3 PERSONAL HISTORY OF MALIGNANT NEOPLASM O 06/18/[address] MD, Ot Z92. 21 PERSONAL HISTORY OF ANTINEOPLASTIC CHEMO 06/18/[address] MD, Ot Z95. 5 PRESENCE OF CORONARY ANGIOPLASTY IMPLANT 06/18/2016 ARIELLA PENALOZA DO Ot C56. 2 MALIGNANT NEOPLASM OF LEFT OVARY 06/18/2016 PENALOZA ARIELLA LARIOS Ot T82.514A BREAKDOWN (MECHANICAL) OF INFUSION PAT 06/24/[address] MD, Ot C55 MALIGNANT NEOPLASM OF UTERUS, PART UNSPE 06/24/[address] MD, Ot C56. 2 MALIGNANT NEOPLASM OF LEFT OVARY 06/24/[address] MD, Ot C78. 5 SECONDARY MALIGNANT NEOPLASM OF LARGE IN 06/24/[address] MD, Ot C78. 6 SECONDARY MALIGNANT NEOPLASM OF RETROPER 06/24/[address] MD, Ot C79. 89 SECONDARY MALIGNANT NEOPLASM OF OTHER SP 06/24/[address] MD, Ot D50. 0 IRON DEFICIENCY ANEMIA SECONDARY TO BLOO 06/24/[address] MD, Ot D63. 1 ANEMIA IN CHRONIC KIDNEY DISEASE 06/24/[address] MD, Ot D64. 81 ANEMIA DUE TO ANTINEOPLASTIC CHEMOTHERAP 06/24/[address] MD, Ot I25. 10 ATHSCL HEART DISEASE OF [place]FE[place] CORONARY 06/24/[address] MD, Ot K21. 0 GASTRO-ESOPHAGEAL REFLUX DISEASE WITH ES 06/24/[address] MD, Ot K44. 9 DIAPHRAGMATIC HERNIA WITHOUT OBSTRUCTION 06/24/[address] MD, Ot N18. 9 CHRONIC KIDNEY DISEASE, UNSPECIFIED 06/24/[address] MD, Ot Z45. 2 ENCOUNTER FOR ADJUSTMENT AND MANAGEMENT 06/24/[address] MD, Ot Z79. 02 CUSTODIAL (CURRENT) USE OF ANTITHROMBOTI 06/24/[address] MD, Ot Z79. 82 TELLER VAULT (CURRENT) USE OF ASPIRIN 06/24/[address] MD, Ot Z85. 3 PERSONAL HISTORY OF MALIGNANT NEOPLASM O 06/24/[address] MD, Ot Z92. 21 PERSONAL HISTORY OF ANTINEOPLASTIC CHEMO 06/24/[address] MD, Ot Z95. 5 PRESENCE OF CORONARY ANGIOPLASTY IMPLANT 06/29/[address] MD, Ot C55 MALIGNANT NEOPLASM OF UTERUS, PART UNSPE 06/29/[address] MD, Ot C56. 2 MALIGNANT NEOPLASM OF LEFT OVARY 06/29/[address] MD, Ot C78. 5 SECONDARY MALIGNANT NEOPLASM OF LARGE IN 06/29/[address] MD, Ot C78. 6 SECONDARY MALIGNANT NEOPLASM OF RETROPER 06/29/[address] MD, Ot C79. 89 SECONDARY MALIGNANT NEOPLASM OF OTHER SP 06/29/[address] MD, Ot D50. 0 IRON DEFICIENCY ANEMIA SECONDARY TO BLOO 06/29/[address] MD, Ot D63. 1 ANEMIA IN CHRONIC KIDNEY DISEASE 06/29/[address] MD, Ot D64. 81 ANEMIA DUE TO ANTINEOPLASTIC CHEMOTHERAP 06/29/[address] MD, Ot I25. 10 ATHSCL HEART DISEASE OF [place]FE[place] CORONARY 06/29/[address] MD, Ot K21. 0 GASTRO-ESOPHAGEAL REFLUX DISEASE WITH ES 06/29/[address] MD, Ot K44. 9 DIAPHRAGMATIC HERNIA WITHOUT OBSTRUCTION 06/29/[address] MD, Ot N18. 9 CHRONIC KIDNEY DISEASE, UNSPECIFIED 06/29/[address] MD, Ot Z79. 02 TELLER VAULT (CURRENT) USE OF ANTITHROMBOTI 06/29/[address] MD, Ot Z79. 82 CUSTODIAL (CURRENT) USE OF ASPIRIN 06/29/2016 XUN MD, ROSARIO-ARCEILA Ot Z85. 3 PERSONAL HISTORY OF MALIGNANT NEOPLASM O 06/29/2016 JAD LIU, DANA Ot Z92. 21 PERSONAL HISTORY OF ANTINEOPLASTIC CHEMO 06/29/2016 JAD LIU, DANA Ot Z95. 5 PRESENCE OF CORONARY ANGIOPLASTY IMPLANT 07/08/2016 ARIELLA PENALOZA DO D Ot C55 MALIGNANT NEOPLASM OF UTERUS, PART UNSPE 07/08/2016 YASH PENALOZA DOTT D Ot C56. 2 MALIGNANT NEOPLASM OF LEFT OVARY 07/08/2016 ARIELLA PENALOZA DO D Ot E78. 5 HYPERLIPIDEMIA, UNSPECIFIED 07/08/2016 YASH PENALOZA DOTT D Ot G47. 33 OBSTRUCTIVE SLEEP APNEA (ADULT) (PEDIATR 07/08/2016 YASH PENALOZA DOTT D Ot I12. 9 HYPERTENSIVE CHRONIC KIDNEY DISEASE W ST 07/08/2016 YASH PENALOZA DOTT D Ot I25. 10 ATHSCL HEART DISEASE OF [place]FE[place] CORONARY 07/08/2016 CA LARIOS ARIELLA D Ot N18. 2 CHRONIC KIDNEY DISEASE, STAGE 2 (MILD) 07/08/2016 ARIELLA PENALOZA DO D Ot T82.514A BREAKDOWN (MECHANICAL) OF INFUSION PAT 07/08/2016 ARIELLA PENALOZA DO Ot Z79. 02 CUSTODIAL (CURRENT) USE OF ANTITHROMBOTI 07/08/2016 ARIELLA PENALOZA DO D Ot Z79. 82 TELLER VAULT (CURRENT) USE OF ASPIRIN 07/08/2016 ARIELLA PENALOZA DO D Ot Z85. 3 PERSONAL HISTORY OF MALIGNANT NEOPLASM O 07/08/2016 ARIELLA PENALOZA DO D Ot C55 MALIGNANT NEOPLASM OF UTERUS, PART UNSPE 07/08/2016 ARIELLA PENALOZA DO D Ot C56. 2 MALIGNANT NEOPLASM OF LEFT OVARY 07/08/2016 YASH PENALOZA DOTT D Ot E78. 5 HYPERLIPIDEMIA, UNSPECIFIED 07/08/2016 YASH PENALOZA DOTT D Ot G47. 33 OBSTRUCTIVE SLEEP APNEA (ADULT) (PEDIATR 07/08/2016 YASH PENALOZA DOTT D Ot I12. 9 HYPERTENSIVE CHRONIC KIDNEY DISEASE W ST 07/08/2016 YASH PENALOZA DOTT D Ot I25. 10 ATHSCL HEART DISEASE OF [place]FE[place] CORONARY 07/08/2016 CA LARIOS ARIELLA D Ot N18. 2 CHRONIC KIDNEY DISEASE, STAGE 2 (MILD) 07/08/2016 YASH PENALOZA DOTT D Ot T82.514A BREAKDOWN (MECHANICAL) OF INFUSION PAT 07/08/2016 YASH PENALOZA DOTT D Ot Z79. 02 CUSTODIAL (CURRENT) USE OF ANTITHROMBOTI 07/08/2016 ARIELLA PENALOZA DO D Ot Z79. 82 TELLER VAULT (CURRENT) USE OF ASPIRIN 07/08/2016 YASH PENALOZA DOTT D Ot Z85. 3 PERSONAL HISTORY OF MALIGNANT NEOPLASM O 07/09/2016 ARIELLA PENALOZA DO Ot C55 MALIGNANT NEOPLASM OF UTERUS, PART UNSPE 07/09/2016 YASH PENALOZA DOTT D Ot C56. 2 MALIGNANT NEOPLASM OF LEFT OVARY 07/09/2016 YASH PENALOZA DOTT D Ot E78. 5 HYPERLIPIDEMIA, UNSPECIFIED 07/09/2016 YASH PENALOZA DOTT D Ot G47. 33 OBSTRUCTIVE SLEEP APNEA (ADULT) (PEDIATR 07/09/2016 YASH PENALOZA DOTT D Ot I12. 9 HYPERTENSIVE CHRONIC KIDNEY DISEASE W ST 07/09/2016 ARIELLA PENALOZA DO D Ot I25. 10 ATHSCL HEART DISEASE OF [place]FE[place] CORONARY 07/09/2016 ARIELLA PENALOZA DO D Ot N18. 2 CHRONIC KIDNEY DISEASE, STAGE 2 (MILD) 07/09/2016 ARIELLA PENALOZA DO D Ot T82.514A BREAKDOWN (MECHANICAL) OF INFUSION PAT 07/09/2016 ARIELLA PENALOZA DO Ot Z79. 02 CUSTODIAL (CURRENT) USE OF ANTITHROMBOTI 07/09/2016 ARIELLA PENALOZA DO D Ot Z79. 82 CUSTODIAL (CURRENT) USE OF ASPIRIN 07/09/2016 ARIELLA PENALOZA DO D Ot Z85. 3 PERSONAL HISTORY OF MALIGNANT NEOPLASM O 07/12/2016 ARIELLA PENALOZA DO Ot C55 MALIGNANT NEOPLASM OF UTERUS, PART UNSPE 07/12/2016 YASH PENALOZA DOTT D Ot C56. 2 MALIGNANT NEOPLASM OF LEFT OVARY 07/12/2016 ARIELLA PENALOZA DO D Ot E78. 5 HYPERLIPIDEMIA, UNSPECIFIED 07/12/2016 YASH PENALOZA DOTT D Ot G47. 33 OBSTRUCTIVE SLEEP APNEA (ADULT) (PEDIATR 07/12/2016 YASH PENALOZA DOTT D Ot I12. 9 HYPERTENSIVE CHRONIC KIDNEY DISEASE W ST 07/12/2016 ARIELLA PENALOZA DO D Ot I25. 10 ATHSCL HEART DISEASE OF [place]FE[place] CORONARY 07/12/2016 CA LARIOS, ARIELLA D Ot N18. 2 CHRONIC KIDNEY DISEASE, STAGE 2 (MILD) 07/12/2016 YASH PENALOZA DOTT D Ot T82.514A BREAKDOWN (MECHANICAL) OF INFUSION PAT 07/12/2016 YASH PENALOZA DOTT D Ot Z79. 02 TELLER VAULT (CURRENT) USE OF ANTITHROMBOTI 07/12/2016 CA LARIOS ARIELLA D Ot Z79. 82 TELLER VAULT (CURRENT) USE OF ASPIRIN 07/12/2016 YASH PENALOZA DOTT D Ot Z85. 3 PERSONAL HISTORY OF MALIGNANT NEOPLASM O 07/17/2016 CA DOYASHTT D Ot C55 MALIGNANT NEOPLASM OF UTERUS, PART UNSPE 07/17/2016 ARIELLA PENALOZA DO D Ot C56. 2 MALIGNANT NEOPLASM OF LEFT OVARY 07/17/2016 ARIELLA PENALOZA DO D Ot E78. 5 HYPERLIPIDEMIA, UNSPECIFIED 07/17/2016 CA LARIOS ARIELLA D Ot G47. 33 OBSTRUCTIVE SLEEP APNEA (ADULT) (PEDIATR 07/17/2016 CA DOYASHTT D Ot I12. 9 HYPERTENSIVE CHRONIC KIDNEY DISEASE W ST 07/17/2016 CA DOYASHTT D Ot I25. 10 ATHSCL HEART DISEASE OF [place]FE[place] CORONARY 07/17/2016 ARIELLA PENALOZA DO D Ot N18. 2 CHRONIC KIDNEY DISEASE, STAGE 2 (MILD) 07/17/2016 ARIELLA PENALOZA DO Ot T82.514A BREAKDOWN (MECHANICAL) OF INFUSION PAT 07/17/2016 ARIELLA PENALOZA DO D Ot Z79. 02 TELLER VAULT (CURRENT) USE OF ANTITHROMBOTI 07/17/2016 YASH PENALOZA DOTT D Ot Z79. 82 CUSTODIAL (CURRENT) USE OF ASPIRIN 07/17/2016 YASH PENALOZA DOTT D Ot Z85. 3 PERSONAL HISTORY OF MALIGNANT NEOPLASM O 07/27/2016 CA DOYASHTT D Ot C56. 9 MALIGNANT NEOPLASM OF UNSPECIFIED OVARY 07/27/2016 CA DO ARIELLA D Ot E78. 5 HYPERLIPIDEMIA, UNSPECIFIED 07/27/2016 CA DO ARIELLA D Ot G47. 33 OBSTRUCTIVE SLEEP APNEA (ADULT) (PEDIATR 07/27/2016 CA DO, ARIELLA D Ot I12. 9 HYPERTENSIVE CHRONIC KIDNEY DISEASE W ST 07/27/2016 CA LARIOS ARIELLA D Ot I25. 10 ATHSCL HEART DISEASE OF BLACKFEET CORONARY 07/27/2016 TILLAR ARIELLA LARIOS Ot N18. 2 CHRONIC KIDNEY DISEASE, STAGE 2 (MILD) 07/27/2016 PENALOZA ARIELLA LARIOS Ot T82.514D BREAKDOWN (MECHANICAL) OF INFUSION PAT 07/27/2016 TILLAR ARIELLA LARIOS Ot Z79. 02 CUSTODIAL (CURRENT) USE OF ANTITHROMBOTI 07/27/2016 [facility]. 82 TELLER VAULT (CURRENT) USE OF ASPIRIN 07/27/2016 [facility] Ot Z85. 3 PERSONAL HISTORY OF MALIGNANT NEOPLASM O 07/28/[address] MD Ot C55 MALIGNANT NEOPLASM OF UTERUS, PART UNSPE 07/28/[address] MD, Ot C56. 2 MALIGNANT NEOPLASM OF LEFT OVARY 07/28/[address] MD, Ot C78. 5 SECONDARY MALIGNANT NEOPLASM OF LARGE IN 07/28/[address] MD, Ot C78. 6 SECONDARY MALIGNANT NEOPLASM OF RETROPER 07/28/[address] MD, Ot C79. 89 SECONDARY MALIGNANT NEOPLASM OF OTHER SP 07/28/[address] MD, Ot D50. 0 IRON DEFICIENCY ANEMIA SECONDARY TO BLOO 07/28/[address] MD, Ot D63. 1 ANEMIA IN CHRONIC KIDNEY DISEASE 07/28/[address] MD, Ot D64. 81 ANEMIA DUE TO ANTINEOPLASTIC CHEMOTHERAP 07/28/[address] MD, Ot I25. 10 ATHSCL HEART DISEASE OF [place]FE[place] CORONARY 07/28/[address] MD, Ot K21. 0 GASTRO-ESOPHAGEAL REFLUX DISEASE WITH ES 07/28/[address] MD, Ot K44. 9 DIAPHRAGMATIC HERNIA WITHOUT OBSTRUCTION 07/28/[address] MD, Ot N18. 9 CHRONIC KIDNEY DISEASE, UNSPECIFIED 07/28/[address] MD, Ot Z79. 02 CUSTODIAL (CURRENT) USE OF ANTITHROMBOTI 07/28/[address] MD, Ot Z79. 82 TELLER VAULT (CURRENT) USE OF ASPIRIN 07/28/[address] MD, Ot Z85. 3 PERSONAL HISTORY OF MALIGNANT NEOPLASM O 07/28/[address] MD, Ot Z92. 21 PERSONAL HISTORY OF ANTINEOPLASTIC CHEMO 07/28/[address] MD Ot Z95. 5 PRESENCE OF CORONARY ANGIOPLASTY IMPLANT 08/04/2016 ARIELLA PENALOZA DO Ot C56. 9 MALIGNANT NEOPLASM OF UNSPECIFIED OVARY 08/04/2016 ARIELLA PENALOZA DO Ot E78. 5 HYPERLIPIDEMIA, UNSPECIFIED 08/04/2016 ARIELLA PENALOZA DO Ot G47. 33 OBSTRUCTIVE SLEEP APNEA (ADULT) (PEDIATR 08/04/2016 ARIELLA PENALOZA DO Ot I12. 9 HYPERTENSIVE CHRONIC KIDNEY DISEASE W ST 08/04/2016 ARIELLA PENALOZA DO Ot I25. 10 ATHSCL HEART DISEASE OF [place]FE[place] CORONARY 08/04/2016 ARIELLA PENALOZA DO Ot N18. 2 CHRONIC KIDNEY DISEASE, STAGE 2 (MILD) 08/04/2016 ARIELLA PENALOZA DO Ot T82.514D BREAKDOWN (MECHANICAL) OF INFUSION PAT 08/04/2016 ARIELLA PENALOZA DO Ot Z79. 02 CUSTODIAL (CURRENT) USE OF ANTITHROMBOTI 08/04/2016 ARIELLA PENALOZA DO Ot Z79. 82 CUSTODIAL (CURRENT) USE OF ASPIRIN 08/04/2016 ARIELLA PENALOZA DO Ot Z85. 3 PERSONAL HISTORY OF MALIGNANT NEOPLASM O 08/25/[address] MD Ot C55 MALIGNANT NEOPLASM OF UTERUS, PART UNSPE 08/25/[address] MD, Ot C56. 2 MALIGNANT NEOPLASM OF LEFT OVARY 08/25/[address] MD Ot C78. 5 SECONDARY MALIGNANT NEOPLASM OF LARGE IN 08/25/[address] MD Ot C78. 6 SECONDARY MALIGNANT NEOPLASM OF RETROPER 08/25/[address] MD, Ot C79. 89 SECONDARY MALIGNANT NEOPLASM OF OTHER SP 08/25/[address] MD Ot D50. 0 IRON DEFICIENCY ANEMIA SECONDARY TO BLOO 08/25/[address] MD, Ot D63. 1 ANEMIA IN CHRONIC KIDNEY DISEASE 08/25/[address] MD, Ot D64. 81 ANEMIA DUE TO ANTINEOPLASTIC CHEMOTHERAP 08/25/[address] MD Ot I25. 10 ATHSCL HEART DISEASE OF [place]FE[place] CORONARY 08/25/2016 XUDANA Dickens MD, Ot K21. 0 GASTRO-ESOPHAGEAL REFLUX DISEASE WITH ES 08/25/[address] MD, Ot K44. 9 DIAPHRAGMATIC HERNIA WITHOUT OBSTRUCTION 08/25/[address] MD, Ot N18. 9 CHRONIC KIDNEY DISEASE, UNSPECIFIED 08/25/[address] MD, Ot Z79. 02 TELLER VAULT (CURRENT) USE OF ANTITHROMBOTI 08/25/[address] MD, Ot Z79. 82 TELLER [place] (CURRENT) USE OF ASPIRIN 08/25/[address] MD, Ot Z85. 3 PERSONAL HISTORY OF MALIGNANT NEOPLASM O 08/25/[address] MD, Ot Z92. 21 PERSONAL HISTORY OF ANTINEOPLASTIC CHEMO 08/25/[address] MD, Ot Z95. 5 PRESENCE OF CORONARY ANGIOPLASTY IMPLANT 09/10/[address] MD, Ot C56. 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 2 MALIGNANT NEOPLASM OF LEFT OVARY 09/21/[address] MD, Ot C78. 5 SECONDARY MALIGNANT NEOPLASM OF LARGE IN 09/21/[address] MD, Ot C78. 6 SECONDARY MALIGNANT NEOPLASM OF RETROPER 09/21/[address] MD, Ot C79. 89 SECONDARY MALIGNANT NEOPLASM OF OTHER SP 09/21/[address] MD, Ot D50. 0 IRON DEFICIENCY ANEMIA SECONDARY TO BLOO 09/21/[address] MD, Ot D63. 1 ANEMIA IN CHRONIC KIDNEY DISEASE 09/21/[address] MD, Ot D64. 81 ANEMIA DUE TO ANTINEOPLASTIC CHEMOTHERAP 09/21/[address] MD, Ot I25. 10 ATHSCL HEART DISEASE OF [place] CORONARY 09/21/[address] MD, Ot K21. 0 GASTRO-ESOPHAGEAL REFLUX DISEASE WITH ES 09/21/[address] MD, Ot K44. 9 DIAPHRAGMATIC HERNIA WITHOUT OBSTRUCTION 09/21/[address] MD, Ot N18. 9 CHRONIC KIDNEY DISEASE, UNSPECIFIED 09/21/[address] MD, Ot Z51. 11 ENCOUNTER FOR ANTINEOPLASTIC CHEMOTHERAP 09/21/[address] MD, Ot Z79. 02 TELLER [place] (CURRENT) USE OF ANTITHROMBOTI 09/21/[address] MD, Ot Z79. 82 TELLER [place] (CURRENT) USE OF ASPIRIN 09/21/[address] MD, Ot Z85. 3 PERSONAL HISTORY OF MALIGNANT NEOPLASM O 09/21/[address] MD, Ot Z92. 21 PERSONAL HISTORY OF ANTINEOPLASTIC CHEMO 09/21/[address] MD, Ot Z95. 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 2 MALIGNANT NEOPLASM OF LEFT OVARY 09/22/[address] MD, Ot C78. 5 SECONDARY MALIGNANT NEOPLASM OF LARGE IN 09/22/[address] MD, Ot C78. 6 SECONDARY MALIGNANT NEOPLASM OF RETROPER 09/22/[address] MD, Ot C79. 89 SECONDARY MALIGNANT NEOPLASM OF OTHER SP 09/22/[address] MD, Ot D50. 0 IRON DEFICIENCY ANEMIA SECONDARY TO BLOO 09/22/[address] MD, Ot D63. 1 ANEMIA IN CHRONIC KIDNEY DISEASE 09/22/[address] MD, Ot D64. 81 ANEMIA DUE TO ANTINEOPLASTIC CHEMOTHERAP 09/22/[address] MD, Ot I25. 10 ATHSCL HEART DISEASE OF [place] CORONARY 09/22/[address] MD, Ot K21. 0 GASTRO-ESOPHAGEAL REFLUX DISEASE WITH ES 09/22/[address] MD, Ot K44. 9 DIAPHRAGMATIC HERNIA WITHOUT OBSTRUCTION 09/22/[address] MD, Ot N18. 9 CHRONIC KIDNEY DISEASE, UNSPECIFIED 09/22/[address] MD, Ot Z51. 11 ENCOUNTER FOR ANTINEOPLASTIC CHEMOTHERAP 09/22/[address] MD, Ot Z79. 02 CUSTODIAL (CURRENT) USE OF ANTITHROMBOTI 09/22/[address] MD, Ot Z79. 82 TELLER [place] (CURRENT) USE OF ASPIRIN 09/22/[address] MD, Ot Z85. 3 PERSONAL HISTORY OF MALIGNANT NEOPLASM O 09/22/[address] MD, Ot Z92. 21 PERSONAL HISTORY OF ANTINEOPLASTIC CHEMO 09/22/[address] MD, Ot Z95. 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 2 MALIGNANT NEOPLASM OF LEFT OVARY 09/23/[address] MD, Ot C78. 5 SECONDARY MALIGNANT NEOPLASM OF LARGE IN 09/23/[address] MD, Ot C78. 6 SECONDARY MALIGNANT NEOPLASM OF RETROPER 09/23/[address] MD, Ot C79. 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 0 IRON DEFICIENCY ANEMIA SECONDARY TO BLOO 09/23/[address] MD, Ot D63. 1 ANEMIA IN CHRONIC KIDNEY DISEASE 09/23/[address] MD, Ot D64. 81 ANEMIA DUE TO ANTINEOPLASTIC CHEMOTHERAP 09/23/[address] MD, Ot I25. 10 ATHSCL HEART DISEASE OF [place] CORONARY 09/23/[address] MD, Ot K21. 0 GASTRO-ESOPHAGEAL REFLUX DISEASE WITH ES 09/23/[address] MD, Ot K44. 9 DIAPHRAGMATIC HERNIA WITHOUT OBSTRUCTION 09/23/[address] MD, Ot N18. 9 CHRONIC KIDNEY DISEASE, UNSPECIFIED 09/23/[address] MD, Ot Z79. 02 TELLER [place] (CURRENT) USE OF ANTITHROMBOTI 09/23/[address] MD, Ot Z79. 82 CUSTODIAL (CURRENT) USE OF ASPIRIN 09/23/[address] MD, Ot Z85. 3 PERSONAL HISTORY OF MALIGNANT NEOPLASM O 09/23/[address] MD, Ot Z92. 21 PERSONAL HISTORY OF ANTINEOPLASTIC CHEMO 09/23/[address] MD, Ot Z95. 5 PRESENCE OF CORONARY ANGIOPLASTY IMPLANT 09/24/[address] MD, Ot C56. 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 2 MALIGNANT NEOPLASM OF LEFT OVARY 09/27/[address] MD, Ot C78. 5 SECONDARY MALIGNANT NEOPLASM OF LARGE IN 09/27/[address] MD, Ot C78. 6 SECONDARY MALIGNANT NEOPLASM OF RETROPER 09/27/[address] MD, Ot C79. 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 0 IRON DEFICIENCY ANEMIA SECONDARY TO BLOO 09/27/[address] MD, Ot D63. 1 ANEMIA IN CHRONIC KIDNEY DISEASE 09/27/[address] MD, Ot D64. 81 ANEMIA DUE TO ANTINEOPLASTIC CHEMOTHERAP 09/27/[address] MD, Ot I25. 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 0 GASTRO-ESOPHAGEAL REFLUX DISEASE WITH ES 09/27/[address] MD, Ot K44. 9 DIAPHRAGMATIC HERNIA WITHOUT OBSTRUCTION 09/27/[address] MD, Ot N18. 9 CHRONIC KIDNEY DISEASE, UNSPECIFIED 09/27/[address] MD, Ot Z51. 11 ENCOUNTER FOR ANTINEOPLASTIC CHEMOTHERAP 09/27/[address] MD, Ot Z79. 02 TELLER VAULT (CURRENT) USE OF ANTITHROMBOTI 09/27/[address] MD, Ot Z79. 82 CUSTODIAL (CURRENT) USE OF ASPIRIN 09/27/[address] MD, Ot Z85. 3 PERSONAL HISTORY OF MALIGNANT NEOPLASM O 09/27/[address] MD, Ot Z92. 21 PERSONAL HISTORY OF ANTINEOPLASTIC CHEMO 09/27/[address] MD, Ot Z95. 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 2 MALIGNANT NEOPLASM OF LEFT OVARY 10/27/[address] MD, Ot C78. 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 0 IRON DEFICIENCY ANEMIA SECONDARY TO BLOO 10/27/[address] MD, Ot D63. 1 ANEMIA IN CHRONIC KIDNEY DISEASE 10/27/[address] MD, Ot D64. 81 ANEMIA DUE TO ANTINEOPLASTIC CHEMOTHERAP 10/27/[address] MD, Ot I25. 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 0 GASTRO-ESOPHAGEAL REFLUX DISEASE WITH ES 10/27/[address] MD, Ot K44. 9 DIAPHRAGMATIC HERNIA WITHOUT OBSTRUCTION 10/27/[address] MD, Ot N18. 9 CHRONIC KIDNEY DISEASE, UNSPECIFIED 10/27/[address] MD, Ot Z79. 02 TELLER VAULT (CURRENT) USE OF ANTITHROMBOTI 10/27/[address] MD, Ot Z79. 82 CUSTODIAL (CURRENT) USE OF ASPIRIN 10/27/[address] MD, Ot Z85. 3 PERSONAL HISTORY OF MALIGNANT NEOPLASM O 10/27/[address] MD, Ot Z92. 21 PERSONAL HISTORY OF ANTINEOPLASTIC CHEMO 10/27/[address] MD, Ot Z95. 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 2 MALIGNANT NEOPLASM OF LEFT OVARY 12/21/[address] MD, Ot C78. 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 0 IRON DEFICIENCY ANEMIA SECONDARY TO BLOO 12/21/[address] MD, Ot D63. 1 ANEMIA IN CHRONIC KIDNEY DISEASE 12/21/[address] MD, Ot D64. 81 ANEMIA DUE TO ANTINEOPLASTIC CHEMOTHERAP 12/21/[address] MD, Ot I25. 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 0 GASTRO-ESOPHAGEAL REFLUX DISEASE WITH ES 12/21/[address] MD, Ot K44. 9 DIAPHRAGMATIC HERNIA WITHOUT OBSTRUCTION 12/21/[address] MD, Ot N18. 9 CHRONIC KIDNEY DISEASE, UNSPECIFIED 12/21/[address] MD, Ot Z45. 2 ENCOUNTER FOR ADJUSTMENT AND MANAGEMENT 12/21/[address] MD, Ot Z79. 02 CUSTODIAL (CURRENT) USE OF ANTITHROMBOTI 12/21/[address] MD, Ot Z79. 82 TELLER VAULT (CURRENT) USE OF ASPIRIN 12/21/[address] MD, Ot Z85. 3 PERSONAL HISTORY OF MALIGNANT NEOPLASM O 12/21/[address] MD, Ot Z92. 21 PERSONAL HISTORY OF ANTINEOPLASTIC CHEMO 12/21/[address] MD, Ot Z95. 5 PRESENCE OF CORONARY ANGIOPLASTY IMPLANT 12/22/[address] MD, Ot Z12. 31 ENCNTR SCREEN MAMMOGRAM FOR MALIGNANT NE 12/27/[address] MD, Ot C55 MALIGNANT NEOPLASM OF UTERUS, PART UNSPE 12/27/[address] MD, Ot C56. 2 MALIGNANT NEOPLASM OF LEFT OVARY 12/27/[address] MD, Ot C78. 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 89 SECONDARY MALIGNANT NEOPLASM OF OTHER SP 12/27/[address] MD, Ot D50. 0 IRON DEFICIENCY ANEMIA SECONDARY TO BLOO 12/27/[address] MD, Ot D63. 1 ANEMIA IN CHRONIC KIDNEY DISEASE 12/27/[address] MD, Ot D64. 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 0 GASTRO-ESOPHAGEAL REFLUX DISEASE WITH ES 12/27/[address] MD, Ot K44. 9 DIAPHRAGMATIC HERNIA WITHOUT OBSTRUCTION 12/27/[address] MD, Ot N18. 9 CHRONIC KIDNEY DISEASE, UNSPECIFIED 12/27/[address] MD, Ot Z45. 2 ENCOUNTER FOR ADJUSTMENT AND MANAGEMENT 12/27/[address] MD, Ot Z79. 02 TELLER VAULT (CURRENT) USE OF ANTITHROMBOTI 12/27/[address] MD, Ot Z79. 82 CUSTODIAL (CURRENT) USE OF ASPIRIN 12/27/[address] MD, Ot Z85. 3 PERSONAL HISTORY OF MALIGNANT NEOPLASM O 12/27/[address] MD, Ot Z92. 21 PERSONAL HISTORY OF ANTINEOPLASTIC CHEMO 12/27/[address] MD, Ot Z95. 5 PRESENCE OF CORONARY ANGIOPLASTY IMPLANT 12/27/[address] MD, Ot Z12. 31 ENCNTR SCREEN MAMMOGRAM FOR MALIGNANT NE 01/01/[address] MD, Ot Z12. 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 2 MALIGNANT NEOPLASM OF LEFT OVARY 01/06/[address] MD, Ot C78. 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 89 SECONDARY MALIGNANT NEOPLASM OF OTHER SP 01/06/[address] MD, Ot D50. 0 IRON DEFICIENCY ANEMIA SECONDARY TO BLOO 01/06/[address] MD, Ot D63. 1 ANEMIA IN CHRONIC KIDNEY DISEASE 01/06/[address] MD, Ot D64. 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 0 GASTRO-ESOPHAGEAL REFLUX DISEASE WITH ES 01/06/[address] MD, Ot K44. 9 DIAPHRAGMATIC HERNIA WITHOUT OBSTRUCTION 01/06/[address], Ot N18. 9 CHRONIC KIDNEY DISEASE, UNSPECIFIED 01/06/[address] MD, Ot Z45. 2 ENCOUNTER FOR ADJUSTMENT AND MANAGEMENT 01/06/[address] MD Ot Z79. 02 TELLER VAULT (CURRENT) USE OF ANTITHROMBOTI 01/06/[address] MD Ot Z79. 82 TELLER VAULT (CURRENT) USE OF ASPIRIN 01/06/[address] MD Ot Z85. 3 PERSONAL HISTORY OF MALIGNANT NEOPLASM O 01/06/[address] MD Ot Z92. 21 PERSONAL HISTORY OF ANTINEOPLASTIC CHEMO 01/06/[address] MD Ot Z95. 5 PRESENCE OF CORONARY ANGIOPLASTY IMPLANT 01/07/2017 Ot V76.12 OTH SCREEN MAMMO- MALIGN NEOPLASM OF JORGE LUIS 01/07/2017 Ot 174.9 GEMMA GN NEOPL BREAST NOS 01/07/2017 Ot 530.11 REF LUX ESOPHAGITIS 01/07/2017 Ot 562.10 DIV ERTICULOSIS COLON (W/O MENT OF HEMORR 01/07/2017 Ot 182.0 GEMMA G DELPHINE CORPUS UTERI 01/07/2017 Ot 183.0 GEMMA GN NEOPL OVARY 01/07/2017 Ot 197.5 SEC MALIG DELPHINE LG BOWEL 01/07/2017 Ot 198.89 SEC ONDARY MALIG DELPHINE NEC 01/07/2017 Ot 285.9 ANEM IA NOS 01/07/2017 Ot 287.5 THRO MBOCYTOPENIA NOS 01/07/2017 Ot V10.3 HX O F BREAST MALIGNANCY 01/07/2017 Ot V15.3 HX O F IRRADIATION 01/07/[address] ABSENCE OF GENITAL ORGANS 01/07/2017 Ot V58.69 OTH MED,LT,CURRENT USE 01/07/2017 Ot V87.41 PER FELICE HISTORY OF ANTINEOPLASTIC CHEMO 01/07/2017 Ot V72.84 EXA M PRE- OPERATIVE NOS 01/07/2017 Ot 182.0 GEMMA G DELPHINE CORPUS UTERI 01/07/2017 Ot 183.0 GEMMA GN NEOPL OVARY 01/07/2017 Ot V10.3 HX O F BREAST MALIGNANCY 01/07/2017 Ot V76.11 SCR N MAMMO-HIGH RISK PT, MALIGNANT NEOPL 01/07/2017 Ot 183.0 GEMMA GN NEOPL OVARY 01/07/2017 Ot 786.09 RES PIRATORY ABNORM NEC 01/07/2017 Ot 786.09 RES PIRATORY ABNORM NEC 01/07/[address] MD Ot 183. 0 MALIGN NEOPL OVARY 01/07/2017 BHARAT LIU, FERNY S Ot V72.84 EXAM PRE-OPERATIVE NOS 01/07/2017 BHARAT LIU, FERNY S Ot V72.84 EXAM PRE-OPERATIVE NOS 01/07/2017 FERNY NICHOLSON MD Ot V72.84 EXAM PRE-OPERATIVE NOS 01/07/[address] MD Ot 721. 0 CERVICAL SPONDYLOSIS 01/07/[address] MD Ot V76. 12 OTH SCREEN MAMMO-MALIGN NEOPLASM OF JORGE LUIS 01/07/2017 BHARAT LIU, FERNY S Ot V72.84 EXAM PRE-OPERATIVE NOS 01/07/2017 BHARAT LIU, FERNY Gordon Ot V72.84 EXAM PRE-OPERATIVE NOS 01/07/2017 BHARAT LIU, FERNY S Ot V72.84 EXAM PRE-OPERATIVE NOS 01/07/2017 ALFREDO CADENA Ot 585.3 CHRONIC KIDNEY DISEASE, STAGE III (MODER 01/07/2017 ALFREDO CADENA Ot 793.5 NOSP (ABN) FINDINGS ON RADIOLOGICAL OT 01/07/2017 FERNY NICHOLSON MD Ot 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 01/07/2017 FERNY NICHOLSON MD S Ot V72.84 EXAM PRE-OPERATIVE NOS 01/07/[address] MD Ot 174. 9 MALIGN NEOPL BREAST NOS 01/07/[address] MD Ot V76. 11 SCRN MAMMO-HIGH RISK PT, MALIGNANT NEOPL 01/07/[address] MD Ot 183. 0 MALIGN NEOPL OVARY 01/07/2017 JAZ NALINI L REFRIGERATOR ROOM CLERK Ot 272.4 HYPERLIPIDEMIA NEC/NOS 01/07/2017 CORYMA, NALINI L REFRIGERATOR ROOM CLERK Ot 401.9 HYPERTENSION NOS 01/07/2017 JAZ NALINI L REFRIGERATOR ROOM CLERK Ot 414.9 CHR ISCHEMIC HRT DIS NOS 01/07/2017 JAZ NALINI L REFRIGERATOR ROOM CLERK Ot 437.9 CEREBROVASC DISEASE NOS 01/07/2017 JAZ NALINI L REFRIGERATOR ROOM CLERK Ot 272.4 HYPERLIPIDEMIA NEC/NOS 01/07/2017 JAZ NALINI L REFRIGERATOR ROOM CLERK Ot 401.9 HYPERTENSION NOS 01/07/2017 JAZ NALINI L REFRIGERATOR ROOM CLERK Ot 414.00 CORON ATHEROSCLER NOS TYPE VESSEL, NATIV 01/07/2017 NALINI SEBASTIAN REFRIGERATOR ROOM CLERK Ot 437.9 CEREBROVASC DISEASE NOS 01/07/[address] MD Ot 174. 9 MALIGN NEOPL BREAST NOS 01/07/[address] MD Ot 183. 0 MALIGN NEOPL OVARY 01/07/2017 BHARAT LIU, FERNY Gordon Ot 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 01/07/2017 FERNY NICHOLSON MD Ot V72.84 EXAM PRE-OPERATIVE NOS 01/07/[address] MD, Ot C50.919 MALIGNANT NEOPLASM OF UNSP SITE OF UNSPE 01/07/[address] MD, Ot C56. 9 MALIGNANT NEOPLASM OF UNSPECIFIED OVARY 01/07/[address] MD, Ot T85.698A [facility] COMPL OF INTERNAL PROSTH DEV/GRFT, 01/07/2017 MARY TEODORO LARIOS Ot Z01.818 ENCOUNTER FOR OTHER PREPROCEDURAL EXAMIN 01/07/[address] MD, Ot C56. 2 MALIGNANT NEOPLASM OF LEFT OVARY 01/07/[address] MD Ot Z85. 3 PERSONAL HISTORY OF MALIGNANT NEOPLASM O 01/07/[address] MD Ot C50.919 MALIGNANT NEOPLASM OF UNSP SITE OF UNSPE 01/07/[address] MD, Ot C56. 9 MALIGNANT NEOPLASM OF UNSPECIFIED OVARY 01/07/[address] MD Ot Z12. 31 ENCNTR SCREEN MAMMOGRAM FOR MALIGNANT NE 01/07/[address] MD Ot C56. 1 MALIGNANT NEOPLASM OF RIGHT OVARY 01/07/[address] MD Ot N18. 9 CHRONIC KIDNEY DISEASE, UNSPECIFIED 01/07/2017 ARIELLA PENALOZA DO Ot C55 MALIGNANT NEOPLASM OF UTERUS, PART UNSPE 01/07/2017 ARIELLA PENALOZA DO Ot C56. 2 MALIGNANT NEOPLASM OF LEFT OVARY 01/07/2017 ARIELLA PENALOZA DO Ot E78. 5 HYPERLIPIDEMIA, UNSPECIFIED 01/07/2017 ARIELLA PENALOZA DO Ot G47. 33 OBSTRUCTIVE SLEEP APNEA (ADULT) (PEDIATR 01/07/2017 ARIELLA PENALOZA DO Ot I12. 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 2 CHRONIC KIDNEY DISEASE, STAGE 2 (MILD) 01/07/2017 PENALOZA DO ARIELLA D Ot T82.514A BREAKDOWN (MECHANICAL) OF INFUSION PAT 01/07/2017 PENALOZA DO ARIELLA D Ot Z79. 02 CUSTODIAL (CURRENT) USE OF ANTITHROMBOTI 01/07/2017 PENALOZA DO ARIELLA D Ot Z79. 82 CUSTODIAL (CURRENT) USE OF ASPIRIN 01/07/2017 PENALOZA DO ARIELLA D Ot Z85. 3 PERSONAL HISTORY OF MALIGNANT NEOPLASM O 01/07/2017 PENALOZA DOARIELLA D Ot C56. 9 MALIGNANT NEOPLASM OF UNSPECIFIED OVARY 01/07/2017 PENALOZA DOARIELLA D Ot E78. 5 HYPERLIPIDEMIA, UNSPECIFIED 01/07/2017 PENALOZA DO ARIELLA D Ot G47. 33 OBSTRUCTIVE SLEEP APNEA (ADULT) (PEDIATR 01/07/2017 CA DOARIELLA D Ot I12. 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 2 CHRONIC KIDNEY DISEASE, STAGE 2 (MILD) 01/07/2017 PENALOZA DOARIELLA D Ot T82.514D BREAKDOWN (MECHANICAL) OF INFUSION PAT 01/07/2017 PENALOZA DOARIELLA D Ot Z79. 02 TELLER VAULT (CURRENT) USE OF ANTITHROMBOTI 01/07/2017 ARIELLA PENALOZA DO D Ot Z79. 82 TELLER VAULT (CURRENT) USE OF ASPIRIN 01/07/2017 PENALOZA DOARIELLA D Ot Z85. 3 PERSONAL HISTORY OF MALIGNANT NEOPLASM O 01/07/[address] MD Ot C56. 1 MALIGNANT NEOPLASM OF RIGHT OVARY 01/07/[address] MD Ot Z12. 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 2 MALIGNANT NEOPLASM OF LEFT OVARY 01/07/[address] MD, Ot C78. 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 89 SECONDARY MALIGNANT NEOPLASM OF OTHER SP 01/07/[address] MD, Ot D50. 0 IRON DEFICIENCY ANEMIA SECONDARY TO BLOO 01/07/[address] MD, Ot D63. 1 ANEMIA IN CHRONIC KIDNEY DISEASE 01/07/[address] MD, Ot D64. 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 0 GASTRO-ESOPHAGEAL REFLUX DISEASE WITH ES 01/07/[address] MD, Ot K44. 9 DIAPHRAGMATIC HERNIA WITHOUT OBSTRUCTION 01/07/[address] MD, Ot N18. 9 CHRONIC KIDNEY DISEASE, UNSPECIFIED 01/07/[address] MD, Ot Z45. 2 ENCOUNTER FOR ADJUSTMENT AND MANAGEMENT 01/07/[address] MD Ot Z79. 02 TELLER VAULT (CURRENT) USE OF ANTITHROMBOTI 01/07/[address] MD, Ot Z79. 82 TELLER VAULT (CURRENT) USE OF ASPIRIN 01/07/[address] MD, Ot Z85. 3 PERSONAL HISTORY OF MALIGNANT NEOPLASM O 01/07/[address] MD, Ot Z92. 21 PERSONAL HISTORY OF ANTINEOPLASTIC CHEMO 01/07/[address] MD, Ot Z95. 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 2 MALIGNANT NEOPLASM OF LEFT OVARY 02/01/[address] MD, Ot C78. 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 89 SECONDARY MALIGNANT NEOPLASM OF OTHER SP 02/01/[address] MD, Ot D50. 0 IRON DEFICIENCY ANEMIA SECONDARY TO BLOO 02/01/[address] MD, Ot D63. 1 ANEMIA IN CHRONIC KIDNEY DISEASE 02/01/[address] MD, Ot D64. 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 0 GASTRO-ESOPHAGEAL REFLUX DISEASE WITH ES 02/01/[address] MD, Ot K44. 9 DIAPHRAGMATIC HERNIA WITHOUT OBSTRUCTION 02/01/[address] MD, Ot N18. 9 CHRONIC KIDNEY DISEASE, UNSPECIFIED 02/01/[address] MD, Ot Z45. 2 ENCOUNTER FOR ADJUSTMENT AND MANAGEMENT 02/01/[address] MD, Ot Z79. 02 CUSTODIAL (CURRENT) USE OF ANTITHROMBOTI 02/01/[address] MD, Ot Z79. 82 TELLER VAULT (CURRENT) USE OF ASPIRIN 02/01/[address] MD, Ot Z85. 3 PERSONAL HISTORY OF MALIGNANT NEOPLASM O 02/01/[address] MD, Ot Z92. 21 PERSONAL HISTORY OF ANTINEOPLASTIC CHEMO 02/01/[address] MD, Ot Z95. 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 02/02/2017 LAURA LIU FACC, ALI FACP CCDS Ot I65.23 OCCLUSION AND STENOSIS OF BILATERAL REGAN 02/02/2017 LAURA LIU FACC, ALI FACP CCDS Ot N18.2 CHRONIC KIDNEY DISEASE, STAGE 2 (MILD) 02/02/2017 LAURA NYEC, ALI FACP CCDS Ot R07.89 OTHER CHEST PAIN 02/10/2017 LAURA LIU FACC, ALI FACP CCDS [...] CCDS Ot 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 2 MALIGNANT NEOPLASM OF LEFT OVARY 04/05/[address] MD Ot C78. 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 89 SECONDARY MALIGNANT NEOPLASM OF OTHER SP 04/05/[address] MD, Ot D50. 0 IRON DEFICIENCY ANEMIA SECONDARY TO BLOO 04/05/[address] MD Ot D63. 1 ANEMIA IN CHRONIC KIDNEY DISEASE 04/05/[address] MD, Ot D64. 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 0 GASTRO-ESOPHAGEAL REFLUX DISEASE WITH ES 04/05/[address] MD, Ot K44. 9 DIAPHRAGMATIC HERNIA WITHOUT OBSTRUCTION 04/05/[address] MD, Ot N18. 9 CHRONIC KIDNEY DISEASE, UNSPECIFIED 04/05/[address] MD, Ot Z45. 2 ENCOUNTER FOR ADJUSTMENT AND MANAGEMENT 04/05/[address] MD Ot Z79. 02 TELLER VAULT (CURRENT) USE OF ANTITHROMBOTI 04/05/[address] MD, Ot Z79. 82 TELLER VAULT (CURRENT) USE OF ASPIRIN 04/05/[address] MD, Ot Z85. 3 PERSONAL HISTORY OF MALIGNANT NEOPLASM O 04/05/[address] MD Ot Z92. 21 PERSONAL HISTORY OF ANTINEOPLASTIC CHEMO 04/05/[address] MD Ot Z95. 5 PRESENCE OF CORONARY ANGIOPLASTY IMPLANT 06/29/2017 Ot 530.11 REF LUX ESOPHAGITIS 06/29/2017 Ot 562.10 DIV ERTICULOSIS COLON (W/O MENT OF HEMORR 06/29/2017 Ot V72.84 EXA M PRE- OPERATIVE NOS 06/29/2017 Ot 182.0 GEMMA G DELPHINE CORPUS UTERI 06/29/2017 Ot 183.0 GEMMA GN NEOPL OVARY 06/29/2017 Ot V10.3 HX O F BREAST MALIGNANCY 06/29/2017 Ot V76.11 SCR N MAMMO-HIGH RISK PT, MALIGNANT NEOPL 06/29/2017 Ot 183.0 GEMMA GN NEOPL OVARY 06/29/2017 Ot 786.09 RES PIRATORY ABNORM NEC 06/29/2017 Ot 786.09 RES PIRATORY ABNORM NEC 06/29/[address] MD Ot 183. 0 MALIGN NEOPL OVARY 06/29/2017 FERNY NICHOLSON MD Ot V72.84 EXAM PRE-OPERATIVE NOS 06/29/2017 FERNY NICHOLSON MD Ot V72.84 EXAM PRE-OPERATIVE NOS 06/29/2017 FERNY NICHOLSON MD Ot V72.84 EXAM PRE-OPERATIVE NOS 06/29/[address] MD Ot 721. 0 CERVICAL SPONDYLOSIS 06/29/[address] MD Ot V76. 12 OTH SCREEN MAMMO-MALIGN NEOPLASM OF JORGE LUIS 06/29/2017 FERNY NICHOLSON MD Ot V72.84 EXAM PRE-OPERATIVE NOS 06/29/2017 FERNY NICHOLSON MD Ot V72.84 EXAM PRE-OPERATIVE NOS 06/29/2017 FERNY NICHOLSON MD Ot V72.84 EXAM PRE-OPERATIVE NOS 06/29/2017 ALFREDO CADENA Ot 585.3 CHRONIC KIDNEY DISEASE, STAGE III (MODER 06/29/2017 ALFREDO CADENA Ot 793.5 NOSP (ABN) FINDINGS ON RADIOLOGICAL OT 06/29/2017 FERNY NICHOLSON MD Ot 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 06/29/2017 FERNY NICHOLSON MD Ot V72.84 EXAM PRE-OPERATIVE NOS 06/29/[address] MD Ot 174. 9 MALIGN NEOPL BREAST NOS 06/29/[address] MD Ot V76. 11 SCRN MAMMO-HIGH RISK PT, MALIGNANT NEOPL 06/29/[address] MD Ot 183. 0 MALIGN NEOPL OVARY 06/29/2017 CORYMA NALINI L REFRIGERATOR ROOM CLERK Ot 272.4 HYPERLIPIDEMIA NEC/NOS 06/29/2017 CORYMA, NALINI L REFRIGERATOR ROOM CLERK Ot 401.9 HYPERTENSION NOS 06/29/2017 JAZ, NALINI L REFRIGERATOR ROOM CLERK Ot 414.9 CHR ISCHEMIC HRT DIS NOS 06/29/2017 JAZ NALINI L REFRIGERATOR ROOM CLERK Ot 437.9 CEREBROVASC DISEASE NOS 06/29/2017 JAZ NALINI L REFRIGERATOR ROOM CLERK Ot 272.4 HYPERLIPIDEMIA NEC/NOS 06/29/2017 JAZ NALINI L REFRIGERATOR ROOM CLERK Ot 401.9 HYPERTENSION NOS 06/29/2017 JAZNALINI Kasey REFRIGERATOR ROOM CLERK Ot 414.00 CORON ATHEROSCLER NOS TYPE VESSEL, NATIV 06/29/2017 NALINI SEBASTIAN REFRIGERATOR ROOM CLERK Ot 437.9 CEREBROVASC DISEASE NOS 06/29/[address] MD Ot 174. 9 MALIGN NEOPL BREAST NOS 06/29/[address] MD Ot 183. 0 MALIGN NEOPL OVARY 06/29/2017 FERNY NICHOLSON MD Ot 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 06/29/2017 FERNY NICHOLSON MD S Ot V72.84 EXAM PRE-OPERATIVE NOS 06/29/[address] MD, Ot C50.919 MALIGNANT NEOPLASM OF UNSP SITE OF UNSPE 06/29/[address] MD, Ot C56. 9 MALIGNANT NEOPLASM OF UNSPECIFIED OVARY 06/29/[address] MD, Ot T85.698A [facility] COMPL OF INTERNAL PROSTH DEV/GRFT, 06/29/2017 TEODORO HERNANDEZ DO Ot Z01.818 ENCOUNTER FOR OTHER PREPROCEDURAL EXAMIN 06/29/[address] MD, Ot C56. 2 MALIGNANT NEOPLASM OF LEFT OVARY 06/29/[address] MD Ot Z85. 3 PERSONAL HISTORY OF MALIGNANT NEOPLASM O 06/29/[address] MD Ot C50.919 MALIGNANT NEOPLASM OF UNSP SITE OF UNSPE 06/29/[address] MD, Ot C56. 9 MALIGNANT NEOPLASM OF UNSPECIFIED OVARY 06/29/[address] MD, Ot Z12. 31 ENCNTR SCREEN MAMMOGRAM FOR MALIGNANT NE 06/29/[address] MD, Ot C56. 1 MALIGNANT NEOPLASM OF RIGHT OVARY 06/29/[address] MD Ot N18. 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 2 MALIGNANT NEOPLASM OF LEFT OVARY 06/29/2017 ARIELLA PENALOZA DO Ot E78. 5 HYPERLIPIDEMIA, UNSPECIFIED 06/29/2017 ARIELLA PENALOZA DO Ot G47. 33 OBSTRUCTIVE SLEEP APNEA (ADULT) (PEDIATR 06/29/2017 PENALOZA DO, ARIELLA D Ot I12. 9 HYPERTENSIVE CHRONIC KIDNEY DISEASE W ST 06/29/2017 PENALOZA DO, ARIELLA D Ot I25. 10 ATHSCL HEART DISEASE OF [place] CORONARY 06/29/2017 PENALOZA DO, ARIELLA D Ot N18. 2 CHRONIC KIDNEY DISEASE, STAGE 2 (MILD) 06/29/2017 PENALOZA DO ARIELLA D Ot T82.514A BREAKDOWN (MECHANICAL) OF INFUSION PAT 06/29/2017 PENALOZA DO ARIELLA D Ot Z79. 02 CUSTODIAL (CURRENT) USE OF ANTITHROMBOTI 06/29/2017 PENALOZA DO ARIELLA D Ot Z79. 82 CUSTODIAL (CURRENT) USE OF ASPIRIN 06/29/2017 PENALOZA DO ARIELLA D Ot Z85. 3 PERSONAL HISTORY OF MALIGNANT NEOPLASM O 06/29/2017 CA DO ARIELLA D Ot C56. 9 MALIGNANT NEOPLASM OF UNSPECIFIED OVARY 06/29/2017 CA DO ARIELLA D Ot E78. 5 HYPERLIPIDEMIA, UNSPECIFIED 06/29/2017 PENALOZA DO ARIELLA D Ot G47. 33 OBSTRUCTIVE SLEEP APNEA (ADULT) (PEDIATR 06/29/2017 PENALOZA DO, ARIELLA D Ot I12. 9 HYPERTENSIVE CHRONIC KIDNEY DISEASE W ST 06/29/2017 PENALOZA DO ARIELLA D Ot I25. 10 ATHSCL HEART DISEASE OF [place] CORONARY 06/29/2017 PENALOZA DO, ARIELLA D Ot N18. 2 CHRONIC KIDNEY DISEASE, STAGE 2 (MILD) 06/29/2017 PENALOZA DOYASHTT D Ot T82.514D BREAKDOWN (MECHANICAL) OF INFUSION PAT 06/29/2017 PENALOZA DOYASHTT D Ot Z79. 02 TELLER VAULT (CURRENT) USE OF ANTITHROMBOTI 06/29/2017 PENALOZA DOYASHTT D Ot Z79. 82 TELLER VAULT (CURRENT) USE OF ASPIRIN 06/29/2017 CA DO ARIELLA D Ot Z85. 3 PERSONAL HISTORY OF MALIGNANT NEOPLASM O 06/29/[address] MD Ot C56. 1 MALIGNANT NEOPLASM OF RIGHT OVARY 06/29/[address] MD Ot Z12. 31 ENCNTR SCREEN MAMMOGRAM FOR MALIGNANT NE 06/29/2017 LAURA LIU FACC, MILKA FACP CCDS Ot E66.09 OTHER OBESITY DUE TO EXCESS CALORIES 06/29/2017 LUARA MD FACC, ALI FACP CCDS Ot E78.4 OTHER HYPERLIPIDEMIA 06/29/2017 LAURA LIU FACC, ALI FACP CCDS Ot G47.33 OBSTRUCTIVE SLEEP APNEA (ADULT) (PEDIATR 06/29/2017 LAURA LIU FACC, ALI FACP CCDS Ot I12.9 HYPERTENSIVE CHRONIC KIDNEY DISEASE W ST 06/29/2017 LAURA LIU FACC, ALI FACP CCDS Ot 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 06/29/2017 LAURA LIU FACC, ALI FACP [...] CCDS Ot 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 06/29/2017 LAURA LIU FACC, ALI FACP CCDS Ot I65.23 OCCLUSION AND STENOSIS OF BILATERAL REGAN 06/29/2017 LAURA LIU FACC, ALI FACP CCDS Ot N18.2 CHRONIC KIDNEY DISEASE, STAGE 2 (MILD) 06/29/2017 LAURA LIU FACC, ALI FACP CCDS Ot R07.89 OTHER CHEST PAIN 06/30/[address] MD Ot C55 MALIGNANT NEOPLASM OF UTERUS, PART UNSPE 06/30/[address] MD Ot C56. 2 MALIGNANT NEOPLASM OF LEFT OVARY 06/30/[address] MD Ot C78. 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 89 SECONDARY MALIGNANT NEOPLASM OF OTHER SP 06/30/[address] MD, Ot D50. 0 IRON DEFICIENCY ANEMIA SECONDARY TO BLOO 06/30/[address] MD, Ot D63. 1 ANEMIA IN CHRONIC KIDNEY DISEASE 06/30/[address] MD, Ot D64. 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 0 GASTRO-ESOPHAGEAL REFLUX DISEASE WITH ES 06/30/[address] MD, Ot K44. 9 DIAPHRAGMATIC HERNIA WITHOUT OBSTRUCTION 06/30/[address] MD, Ot N18. 9 CHRONIC KIDNEY DISEASE, UNSPECIFIED 06/30/[address] MD, Ot Z79. 02 TELLER [place]ULT (CURRENT) USE OF ANTITHROMBOTI 06/30/[address] MD, Ot Z79. 82 CUSTODIAL (CURRENT) USE OF ASPIRIN 06/30/[address] MD, Ot Z85. 3 PERSONAL HISTORY OF MALIGNANT NEOPLASM O 06/30/[address] MD, Ot Z92. 21 PERSONAL HISTORY OF ANTINEOPLASTIC CHEMO 06/30/[address] MD, Ot Z95. 5 PRESENCE OF CORONARY ANGIOPLASTY IMPLANT 08/04/2017 ALFREDO CADENA Ot Z13.820 ENCOUNTER FOR SCREENING FOR OSTEOPOROSIS 08/06/[address] MD Ot C55 MALIGNANT NEOPLASM OF UTERUS, PART UNSPE 08/06/[address] MD, Ot C56. 2 MALIGNANT NEOPLASM OF LEFT OVARY 08/06/[address] MD, Ot C78. 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 89 SECONDARY MALIGNANT NEOPLASM OF OTHER SP 08/06/[address] MD, Ot D50. 0 IRON DEFICIENCY ANEMIA SECONDARY TO BLOO 08/06/[address] MD, Ot D63. 1 ANEMIA IN CHRONIC KIDNEY DISEASE 08/06/[address] MD, Ot D64. 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 0 GASTRO-ESOPHAGEAL REFLUX DISEASE WITH ES 08/06/[address] MD, Ot K44. 9 DIAPHRAGMATIC HERNIA WITHOUT OBSTRUCTION 08/06/[address] MD, Ot N18. 9 CHRONIC KIDNEY DISEASE, UNSPECIFIED 08/06/[address] MD, Ot Z79. 02 CUSTODIAL (CURRENT) USE OF ANTITHROMBOTI 08/06/[address] MD, Ot Z79. 82 TELLER [place] (CURRENT) USE OF ASPIRIN 08/06/[address] MD, Ot Z85. 3 PERSONAL HISTORY OF MALIGNANT NEOPLASM O 08/06/[address] MD, Ot Z92. 21 PERSONAL HISTORY OF ANTINEOPLASTIC CHEMO 08/06/[address] MD, Ot Z95. 5 PRESENCE OF CORONARY ANGIOPLASTY IMPLANT 08/10/[address] MD, Ot C55 MALIGNANT NEOPLASM OF UTERUS, PART UNSPE 08/10/[address] MD, Ot C56. 2 MALIGNANT NEOPLASM OF LEFT OVARY 08/10/[address] MD, Ot C78. 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 89 SECONDARY MALIGNANT NEOPLASM OF OTHER SP 08/10/[address] MD, Ot D50. 0 IRON DEFICIENCY ANEMIA SECONDARY TO BLOO 08/10/[address] MD, Ot D63. 1 ANEMIA IN CHRONIC KIDNEY DISEASE 08/10/[address] MD, Ot D64. 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 0 GASTRO-ESOPHAGEAL REFLUX DISEASE WITH ES 08/10/[address] MD, Ot K44. 9 DIAPHRAGMATIC HERNIA WITHOUT OBSTRUCTION 08/10/[address] MD, Ot N18. 9 CHRONIC KIDNEY DISEASE, UNSPECIFIED 08/10/[address] MD Ot Z79. 02 TELLER [place] (CURRENT) USE OF ANTITHROMBOTI 08/10/[address] MD Ot Z79. 82 TELLER [place] (CURRENT) USE OF ASPIRIN 08/10/[address] MD Ot Z85. 3 PERSONAL HISTORY OF MALIGNANT NEOPLASM O 08/10/[address] MD Ot Z92. 21 PERSONAL HISTORY OF ANTINEOPLASTIC CHEMO 08/10/[address] MD Ot Z95. 5 PRESENCE OF CORONARY ANGIOPLASTY IMPLANT 08/11/2017 ALFREDO CADENA Ot Z13.820 ENCOUNTER FOR SCREENING FOR OSTEOPOROSIS 08/11/2017 ALFREDO CADENA Ot M81.0 AGE-RELATED OSTEOPOROSIS W/O CURRENT PAT 08/25/2017 ALFREDO CADENA Ot M81.0 AGE-RELATED OSTEOPOROSIS W/O CURRENT PAT 08/25/2017 ALFREDO CADENA Ot M81.0 AGE-RELATED OSTEOPOROSIS W/O CURRENT PAT 09/16/2017 ALFREDO CADENA Ot M85.852 OT DISRD OF BONE DENSITY AND STRUCTURE, 09/16/2017 ALFREDO CADENA Ot M85.88 OTH DISRD OF BONE DENSITY AND STRUCTURE, 09/16/2017 ALFREDO CADENA Ot Z13.820 ENCOUNTER FOR SCREENING FOR OSTEOPOROSIS 09/21/2017 Ot 182.0 GEMMA G DELPHINE CORPUS UTERI 09/21/2017 Ot 183.0 GEMMA GN NEOPL OVARY 09/21/2017 Ot V10.3 HX O F BREAST MALIGNANCY 09/21/2017 Ot V76.11 SCR N MAMMO-HIGH RISK PT, MALIGNANT NEOPL 09/21/2017 Ot 183.0 GEMMA GN NEOPL OVARY 09/21/2017 Ot 786.09 RES PIRATORY ABNORM NEC 09/21/2017 Ot 786.09 RES PIRATORY ABNORM NEC 09/21/[address] MD Ot 183. 0 MALIGN NEOPL OVARY 09/21/2017 BHARAT LIU, FERNY Gordon Ot V72.84 EXAM PRE-OPERATIVE NOS 09/21/2017 BHARAT LIU, FERNY Gordon Ot V72.84 EXAM PRE-OPERATIVE NOS 09/21/2017 FERNY NICHOLSON MD Ot V72.84 EXAM PRE-OPERATIVE NOS 09/21/2017 XUN MD, ROSARIO-ARCELIA Ot 721. 0 CERVICAL SPONDYLOSIS 09/21/[address] MD Ot V76. 12 OTH SCREEN MAMMO-MALIGN NEOPLASM OF JORGE LUIS 09/21/2017 BHARAT LIU, FERNY Gordon Ot V72.84 EXAM PRE-OPERATIVE NOS 09/21/2017 BHARAT LIU, FERNY Gordon Ot V72.84 EXAM PRE-OPERATIVE NOS 09/21/2017 FERNY NICHOLSON MD Ot V72.84 EXAM PRE-OPERATIVE NOS 09/21/2017 ALFREDO CADENA Ot 585.3 CHRONIC KIDNEY DISEASE, STAGE III (MODER 09/21/2017 ALFREDO CADENA Ot 793.5 NOSP (ABN) FINDINGS ON RADIOLOGICAL OT 09/21/2017 FERNY NICHOLSON MD Ot 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 09/21/2017 FERNY NICHOLSON MD Ot V72.84 EXAM PRE-OPERATIVE NOS 09/21/[address] MD Ot 174. 9 MALIGN NEOPL BREAST NOS 09/21/[address] MD Ot V76. 11 SCRN MAMMO-HIGH RISK PT, MALIGNANT NEOPL 09/21/[address] MD Ot 183. 0 MALIGN NEOPL OVARY 09/21/2017 BAIMA, NALINI L REFRIGERATOR ROOM CLERK Ot 272.4 HYPERLIPIDEMIA NEC/NOS 09/21/2017 BAIMA, NALINI L REFRIGERATOR ROOM CLERK Ot 401.9 HYPERTENSION NOS 09/21/2017 CORYMA, NALINI L REFRIGERATOR ROOM CLERK Ot 414.9 CHR ISCHEMIC HRT DIS NOS 09/21/2017 JAZ, NALINI L REFRIGERATOR ROOM CLERK Ot 437.9 CEREBROVASC DISEASE NOS 09/21/2017 CORYMA, NALINI L REFRIGERATOR ROOM CLERK Ot 272.4 HYPERLIPIDEMIA NEC/NOS 09/21/2017 CORYMA, NALINI L REFRIGERATOR ROOM CLERK Ot 401.9 HYPERTENSION NOS 09/21/2017 CORYMA, NALINI L REFRIGERATOR ROOM CLERK Ot 414.00 CORON ATHEROSCLER NOS TYPE VESSEL, NATIV 09/21/2017 JAZ NALINI L REFRIGERATOR ROOM CLERK Ot 437.9 CEREBROVASC DISEASE NOS 09/21/[address] MD Ot 174. 9 MALIGN NEOPL BREAST NOS 09/21/[address] MD Ot 183. 0 MALIGN NEOPL OVARY 09/21/2017 FERNY NICHOLSON MD Ot 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 09/21/2017 BHARAT LIU, FERNY S Ot V72.84 EXAM PRE-OPERATIVE NOS 09/21/[address] MD, Ot C50.919 MALIGNANT NEOPLASM OF UNSP SITE OF UNSPE 09/21/[address] MD, Ot C56. 9 MALIGNANT NEOPLASM OF UNSPECIFIED OVARY 09/21/[address] MD Ot T85.698A [facility] COMPL OF INTERNAL PROSTH DEV/GRFT, 09/21/2017 MARY TEODORO LARIOS Ot Z01.818 ENCOUNTER FOR OTHER PREPROCEDURAL EXAMIN 09/21/[address] MD, Ot C56. 2 MALIGNANT NEOPLASM OF LEFT OVARY 09/21/[address] MD Ot Z85. 3 PERSONAL HISTORY OF MALIGNANT NEOPLASM O 09/21/[address] MD, Ot C50.919 MALIGNANT NEOPLASM OF UNSP SITE OF UNSPE 09/21/[address] MD, Ot C56. 9 MALIGNANT NEOPLASM OF UNSPECIFIED OVARY 09/21/[address] MD Ot Z12. 31 ENCNTR SCREEN MAMMOGRAM FOR MALIGNANT NE 09/21/[address] MD Ot C56. 1 MALIGNANT NEOPLASM OF RIGHT OVARY 09/21/[address] MD Ot N18. 9 CHRONIC KIDNEY DISEASE, UNSPECIFIED 09/21/2017 ARIELLA PENALOZA DO Ot C55 MALIGNANT NEOPLASM OF UTERUS, PART UNSPE 09/21/2017 ARIELLA PENALOZA DO Ot C56. 2 MALIGNANT NEOPLASM OF LEFT OVARY 09/21/2017 ARIELLA PENALOZA DO Ot E78. 5 HYPERLIPIDEMIA, UNSPECIFIED 09/21/2017 ARIELLA PENALOZA DO Ot G47. 33 OBSTRUCTIVE SLEEP APNEA (ADULT) (PEDIATR 09/21/2017 ARIELLA PENALOZA DO Ot I12. 9 HYPERTENSIVE CHRONIC KIDNEY DISEASE W ST 09/21/2017 ARIELLA PENALOZA DO Ot I25. 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 2 CHRONIC KIDNEY DISEASE, STAGE 2 (MILD) 09/21/2017 ARIELLA PENALOZA DO Ot T82.514A BREAKDOWN (MECHANICAL) OF INFUSION PAT 09/21/2017 PENALOZA DO, ARIELLA D Ot Z79. 02 TELLER [place] (CURRENT) USE OF ANTITHROMBOTI 09/21/2017 PENALOZA DO ARIELLA D Ot Z79. 82 CUSTODIAL (CURRENT) USE OF ASPIRIN 09/21/2017 YASH PENALOZA DOTT D Ot Z85. 3 PERSONAL HISTORY OF MALIGNANT NEOPLASM O 09/21/2017 PENALOZA DO ARIELLA D Ot C56. 9 MALIGNANT NEOPLASM OF UNSPECIFIED OVARY 09/21/2017 PENALOZA DO ARIELLA D Ot E78. 5 HYPERLIPIDEMIA, UNSPECIFIED 09/21/2017 PENALOZA DO ARIELLA D Ot G47. 33 OBSTRUCTIVE SLEEP APNEA (ADULT) (PEDIATR 09/21/2017 PENALOZA DO, ARIELLA D Ot I12. 9 HYPERTENSIVE CHRONIC KIDNEY DISEASE W ST 09/21/2017 PENALOZA DO, ARIELLA D Ot I25. 10 ATHSCL HEART DISEASE OF BLACKFEET CORONARY 09/21/2017 PENALOZA DOYASHTT D Ot N18. 2 CHRONIC KIDNEY DISEASE, STAGE 2 (MILD) 09/21/2017 ARILELA PENALOZA DO D Ot T82.514D BREAKDOWN (MECHANICAL) OF INFUSION PAT 09/21/2017 ARIELLA PENALOZA DO D Ot Z79. 02 CUSTODIAL (CURRENT) USE OF ANTITHROMBOTI 09/21/2017 YASH PENALOZA DOTT D Ot Z79. 82 CUSTODIAL (CURRENT) USE OF ASPIRIN 09/21/2017 YASH PENALOZA DOTT D Ot Z85. 3 PERSONAL HISTORY OF MALIGNANT NEOPLASM O 09/21/[address] MD Ot C56. 1 MALIGNANT NEOPLASM OF RIGHT OVARY 09/21/[address] MD Ot Z12. 31 ENCNTR SCREEN MAMMOGRAM FOR MALIGNANT NE 09/21/2017 LAURA LIU FACC, MILKA FACP CCDS Ot E66.09 OTHER OBESITY DUE TO EXCESS CALORIES 09/21/2017 LAURA LIU FACC, ALI FACP CCDS Ot E78.4 OTHER HYPERLIPIDEMIA 09/21/2017 LAURA LIU FACC, MILKA FACP CCDS Ot G47.33 OBSTRUCTIVE SLEEP APNEA (ADULT) (PEDIATR 09/21/2017 LAURA LIU FACC, ALI FACP CCDS Ot I12.9 HYPERTENSIVE CHRONIC KIDNEY DISEASE W ST 09/21/2017 LAURA LIU FACC, MILKA FACP CCDS Ot 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 09/21/2017 LAURA MD FACC, ALI FACP CCDS Ot I65.23 OCCLUSION AND STENOSIS OF BILATERAL REGAN 09/21/2017 LAURA LIU FACC, ALI FACP CCDS Ot N18.2 CHRONIC KIDNEY DISEASE, STAGE 2 (MILD) 09/21/2017 LAURA LIU FACC, ALI FACP CCDS Ot R07.89 OTHER CHEST PAIN 09/21/2017 LAURA LIU FACC, ALI FACP CCDS Ot E66.09 OTHER OBESITY DUE TO EXCESS CALORIES 09/21/2017 ALURA LIU FACC, ALI FACP CCDS Ot E78.4 OTHER HYPERLIPIDEMIA 09/21/2017 LAURA LIU FACC, ALI FACP CCDS Ot G47.33 OBSTRUCTIVE SLEEP APNEA (ADULT) (PEDIATR 09/21/2017 LAURA LIU FACC, ALI FACP CCDS Ot I12.9 HYPERTENSIVE CHRONIC KIDNEY DISEASE W ST 09/21/2017 LAURA LIU FACSherine, ALI FACP CCDS Ot 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 2 MALIGNANT NEOPLASM OF LEFT OVARY 09/21/[address] MD, Ot C78. 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 89 SECONDARY MALIGNANT NEOPLASM OF OTHER SP 09/21/[address] MD Ot D50. 0 IRON DEFICIENCY ANEMIA SECONDARY TO BLOO 09/21/[address] MD Ot D63. 1 ANEMIA IN CHRONIC KIDNEY DISEASE 09/21/[address] MD Ot D64. 81 ANEMIA DUE TO ANTINEOPLASTIC CHEMOTHERAP 09/21/[address] MD Ot I25. 10 ATHSCL HEART DISEASE OF BLACKFEET CORONARY 09/21/[address] MD, Ot K21. 0 GASTRO-ESOPHAGEAL REFLUX DISEASE WITH ES 09/21/[address] MD, Ot K44. 9 DIAPHRAGMATIC HERNIA WITHOUT OBSTRUCTION 09/21/[address] MD, Ot N18. 9 CHRONIC KIDNEY DISEASE, UNSPECIFIED 09/21/[address] MD, Ot Z79. 02 TELLER [place] (CURRENT) USE OF ANTITHROMBOTI 09/21/[address] MD, Ot Z79. 82 TELLER [place] (CURRENT) USE OF ASPIRIN 09/21/[address] MD, Ot Z85. 3 PERSONAL HISTORY OF MALIGNANT NEOPLASM O 09/21/[address] MD, Ot Z92. 21 PERSONAL HISTORY OF ANTINEOPLASTIC CHEMO 09/21/[address] MD, Ot Z95. 5 PRESENCE OF CORONARY ANGIOPLASTY IMPLANT 09/21/2017 ALFREDO CADENA K Ot M85.852 OTH DISRD OF BONE DENSITY AND STRUCTURE, 09/21/2017 ALFREDO CADENA K Ot M85.88 OTH DISRD OF BONE DENSITY AND STRUCTURE, 09/21/2017 ALFREDO CADENA Ot Z13.820 ENCOUNTER FOR SCREENING FOR OSTEOPOROSIS 09/24/2017 ALFREDO CADENA K Ot M85.852 OTH DISRD OF BONE DENSITY AND STRUCTURE, 09/24/2017 ALFREDO CADENA Ot M85.88 OTH DISRD OF BONE DENSITY AND STRUCTURE, 09/24/2017 ALFREDO CADENA Ot Z13.820 ENCOUNTER FOR SCREENING FOR OSTEOPOROSIS 09/27/[address] MD, Ot C55 MALIGNANT NEOPLASM OF UTERUS, PART UNSPE 09/27/[address] MD, Ot C56. 2 MALIGNANT NEOPLASM OF LEFT OVARY 09/27/[address] MD, Ot C78. 5 SECONDARY MALIGNANT NEOPLASM OF LARGE IN 09/27/[address] MD, Ot C78. 6 SECONDARY MALIGNANT NEOPLASM OF RETROPER 09/27/[address] MD, Ot C79. 89 SECONDARY MALIGNANT NEOPLASM OF OTHER SP 09/27/[address] MD, Ot D50. 0 IRON DEFICIENCY ANEMIA SECONDARY TO BLOO 09/27/[address] MD, Ot D63. 1 ANEMIA IN CHRONIC KIDNEY DISEASE 09/27/[address] MD Ot D64. 81 ANEMIA DUE TO ANTINEOPLASTIC CHEMOTHERAP 09/27/[address] MD Ot I25. 10 ATHSCL HEART DISEASE OF BLACKFEET CORONARY 09/27/[address] MD Ot K21. 0 GASTRO-ESOPHAGEAL REFLUX DISEASE WITH ES 09/27/[address] MD Ot K44. 9 DIAPHRAGMATIC HERNIA WITHOUT OBSTRUCTION 09/27/[address] MD Ot N18. 9 CHRONIC KIDNEY DISEASE, UNSPECIFIED 09/27/[address] MD Ot Z79. 02 CUSTODIAL (CURRENT) USE OF ANTITHROMBOTI 09/27/[address] MD, Ot Z79. 82 TELLER [place] (CURRENT) USE OF ASPIRIN 09/27/[address] MD, Ot Z85. 3 PERSONAL HISTORY OF MALIGNANT NEOPLASM O 09/27/[address] MD Ot Z92. 21 PERSONAL HISTORY OF ANTINEOPLASTIC CHEMO 09/27/[address] MD Ot Z95. 5 PRESENCE OF CORONARY ANGIOPLASTY IMPLANT 10/06/2017 Ot 182.0 GEMMA G DELPHINE CORPUS UTERI 10/06/2017 Ot 183.0 GEMMA GN NEOPL OVARY 10/06/2017 Ot V10.3 HX O F BREAST MALIGNANCY 10/06/2017 Ot V76.11 SCR N MAMMO-HIGH RISK PT, MALIGNANT NEOPL 10/06/2017 Ot 183.0 GEMMA GN NEOPL OVARY 10/06/2017 Ot 786.09 RES PIRATORY ABNORM NEC 10/06/2017 Ot 786.09 RES PIRATORY ABNORM NEC 10/06/[address] MD Ot 183. 0 MALIGN NEOPL OVARY 10/06/2017 FERNY NICHOLSON MD Ot V72.84 EXAM PRE-OPERATIVE NOS 10/06/2017 FERNY NICHOLSON MD Ot V72.84 EXAM PRE-OPERATIVE NOS 10/06/2017 FERNY NICHOLSON MD Ot V72.84 EXAM PRE-OPERATIVE NOS 10/06/[address] MD Ot 721. 0 CERVICAL SPONDYLOSIS 10/06/[address] MD, Ot V76. 12 OTH SCREEN MAMMO-MALIGN NEOPLASM OF JORGE LUIS 10/06/2017 FERNY NICHOLSON MD Ot V72.84 EXAM PRE-OPERATIVE NOS 10/06/2017 BHARAT LIU, FERNY Gordon Ot V72.84 EXAM PRE-OPERATIVE NOS 10/06/2017 BHARAT LIU, FERNY Gordon Ot V72.84 EXAM PRE-OPERATIVE NOS 10/06/2017 MAGDALENA CHOW, ALFREDO Alvarado Ot 585.3 CHRONIC KIDNEY DISEASE, STAGE III (MODER 10/06/2017 ALFREDO CADENA Ot 793.5 NOSP (ABN) FINDINGS ON RADIOLOGICAL OT 10/06/2017 BHARAT LIU, FERNY Gordon Ot 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 10/06/2017 BHARAT LIU, FERNY Gordon Ot V72.84 EXAM PRE-OPERATIVE NOS 10/06/2017 JAD LIU, DANA Ot 174. 9 MALIGN NEOPL BREAST NOS 10/06/2017 JAD LIU, DANA Ot V76. 11 SCRN MAMMO-HIGH RISK PT, MALIGNANT NEOPL 10/06/2017 JAD LIU, DANA Ot 183. 0 MALIGN NEOPL OVARY 10/06/2017 BAIMA, NALINI L REFRIGERATOR ROOM CLERK Ot 272.4 HYPERLIPIDEMIA NEC/NOS 10/06/2017 CORYMA, NALINI L REFRIGERATOR ROOM CLERK Ot 401.9 HYPERTENSION NOS 10/06/2017 CORYMA, NALINI L REFRIGERATOR ROOM CLERK Ot 414.9 CHR ISCHEMIC HRT DIS NOS 10/06/2017 JAZ, NALINI L REFRIGERATOR ROOM CLERK Ot 437.9 CEREBROVASC DISEASE NOS 10/06/2017 CORYMA, NALINI L REFRIGERATOR ROOM CLERK Ot 272.4 HYPERLIPIDEMIA NEC/NOS 10/06/2017 COYRMA, NALINI L REFRIGERATOR ROOM CLERK Ot 401.9 HYPERTENSION NOS 10/06/2017 CORYMA, NALINI L REFRIGERATOR ROOM CLERK Ot 414.00 CORON ATHEROSCLER NOS TYPE VESSEL, NATIV 10/06/2017 JAZ NALINI L REFRIGERATOR ROOM CLERK Ot 437.9 CEREBROVASC DISEASE NOS 10/06/2017 JAD LIU, DANA Ot 174. 9 MALIGN NEOPL BREAST NOS 10/06/2017 JAD LIU, DANA Ot 183. 0 MALIGN NEOPL OVARY 10/06/2017 BHARAT LIU, FERNY Gordon Ot 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 10/06/2017 BHARAT LIU, FERNY Gordon Ot V72.84 EXAM PRE-OPERATIVE NOS 10/06/2017 JAD LIU, DANA Ot C50.919 MALIGNANT NEOPLASM OF UNSP SITE OF UNSPE 10/06/[address] MD Ot C56. 9 MALIGNANT NEOPLASM OF UNSPECIFIED OVARY 10/06/[address] MD Ot T85.698A [facility] COMPL OF INTERNAL PROSTH DEV/GRFT, 10/06/2017 TEODORO HERNANDEZ DO Ot Z01.818 ENCOUNTER FOR OTHER PREPROCEDURAL EXAMIN 10/06/[address] MD, Ot C56. 2 MALIGNANT NEOPLASM OF LEFT OVARY 10/06/[address] MD, Ot Z85. 3 PERSONAL HISTORY OF MALIGNANT NEOPLASM O 10/06/[address] MD, Ot C50.919 MALIGNANT NEOPLASM OF UNSP SITE OF UNSPE 10/06/[address] MD, Ot C56. 9 MALIGNANT NEOPLASM OF UNSPECIFIED OVARY 10/06/[address] MD, Ot Z12. 31 ENCNTR SCREEN MAMMOGRAM FOR MALIGNANT NE 10/06/[address] MD, Ot C56. 1 MALIGNANT NEOPLASM OF RIGHT OVARY 10/06/[address] MD Ot N18. 9 CHRONIC KIDNEY DISEASE, UNSPECIFIED 10/06/2017 ARIELLA PENALOZA DO Ot C55 MALIGNANT NEOPLASM OF UTERUS, PART UNSPE 10/06/2017 ARIELLA PENALOZA DO Ot C56. 2 MALIGNANT NEOPLASM OF LEFT OVARY 10/06/2017 ARIELLA PENALOZA DO Ot E78. 5 HYPERLIPIDEMIA, UNSPECIFIED 10/06/2017 ARIELLA PENALOZA DO Ot G47. 33 OBSTRUCTIVE SLEEP APNEA (ADULT) (PEDIATR 10/06/2017 ARIELLA PENALOZA DO Ot I12. 9 HYPERTENSIVE CHRONIC KIDNEY DISEASE W ST 10/06/2017 ARIELLA PENALOZA DO Ot I25. 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 2 CHRONIC KIDNEY DISEASE, STAGE 2 (MILD) 10/06/2017 ARIELLA PENALOZA DO Ot T82.514A BREAKDOWN (MECHANICAL) OF INFUSION PAT 10/06/2017 ARIELLA PENALOZA DO Ot Z79. 02 TELLER VAULT (CURRENT) USE OF ANTITHROMBOTI 10/06/2017 ARIELLA PENALOZA DO Ot Z79. 82 TELLER VAULT (CURRENT) USE OF ASPIRIN 10/06/2017 ARIELLA PENALOZA DO Ot Z85. 3 PERSONAL HISTORY OF MALIGNANT NEOPLASM O 10/06/2017 ARIELLA PENALOZA DO Ot C56. 9 MALIGNANT NEOPLASM OF UNSPECIFIED OVARY 10/06/2017 ARIELLA PENALOZA DO Ot E78. 5 HYPERLIPIDEMIA, UNSPECIFIED 10/06/2017 ARIELLA PENALOZA DO Ot G47. 33 OBSTRUCTIVE SLEEP APNEA (ADULT) (PEDIATR 10/06/2017 ARIELLA PENALOZA DO Ot I12. 9 HYPERTENSIVE CHRONIC KIDNEY DISEASE W ST 10/06/2017 ARIELLA PENALOZA DO Ot I25. 10 ATHSCL HEART DISEASE OF BLACKFEET CORONARY 10/06/2017 YASH PENALOZA DOTT D Ot N18. 2 CHRONIC KIDNEY DISEASE, STAGE 2 (MILD) 10/06/2017 ARIELLA PENALOZA DO Ot T82.514D BREAKDOWN (MECHANICAL) OF INFUSION PAT 10/06/2017 ARIELLA PENALOZA DO Ot Z79. 02 CUSTODIAL (CURRENT) USE OF ANTITHROMBOTI 10/06/2017 ARIELLA PENALOZA DO Ot Z79. 82 TELLER VAULT (CURRENT) USE OF ASPIRIN 10/06/2017 ARIELLA PENALOZA DO Ot Z85. 3 PERSONAL HISTORY OF MALIGNANT NEOPLASM O 10/06/[address] MD Ot C56. 1 MALIGNANT NEOPLASM OF RIGHT OVARY 10/06/[address] MD Ot Z12. 31 ENCNTR SCREEN MAMMOGRAM FOR MALIGNANT NE 10/06/2017 LAURA LIU FACC, MILKA FACP CCDS Ot E66.09 OTHER OBESITY DUE TO EXCESS CALORIES 10/06/2017 LAURA LIU FACC, MILKA FACP CCDS Ot E78.4 OTHER HYPERLIPIDEMIA 10/06/2017 LAURA LIU FACC, MILKA FACP CCDS Ot G47.33 OBSTRUCTIVE SLEEP APNEA (ADULT) (PEDIATR 10/06/2017 LAURA LIU FACC, ALI FACP CCDS Ot I12.9 HYPERTENSIVE CHRONIC KIDNEY DISEASE W ST 10/06/2017 LAURA LIU FACC, MILKA FACP CCDS Ot 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 10/06/2017 LAURA LIU FACC, ALI FACP CCDS Ot I65.23 OCCLUSION AND STENOSIS OF BILATERAL REGAN 10/06/2017 LAURA LIU FACC, ALI FACP CCDS Ot N18.2 CHRONIC KIDNEY DISEASE, STAGE 2 (MILD) 10/06/2017 LAURA LIU FACC, ALI FACP CCDS Ot R07.89 OTHER CHEST PAIN 10/06/2017 LAURA LIU FACC, ALI FACP CCDS Ot E66.09 OTHER OBESITY DUE TO EXCESS CALORIES 10/06/2017 LAURA LIU FACC, ALI FACP CCDS Ot E78.4 OTHER HYPERLIPIDEMIA 10/06/2017 LAURA LIU FACC, ALI FACP CCDS Ot G47.33 OBSTRUCTIVE SLEEP APNEA (ADULT) (PEDIATR 10/06/2017 LAURA LIU FACC, ALI FACP CCDS Ot I12.9 HYPERTENSIVE CHRONIC KIDNEY DISEASE W ST 10/06/2017 LAURA LIU FACC, ALI FACP CCDS Ot 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 10/06/2017 LAURA LIU FACC, ALI FACP CCDS Ot I65.23 OCCLUSION AND STENOSIS OF BILATERAL REGAN 10/06/2017 LAURA LIU FACC, ALI FACP CCDS Ot N18.2 CHRONIC KIDNEY DISEASE, STAGE 2 (MILD) 10/06/2017 LAURA LIU FACC, ALI FACP CCDS Ot R07.89 OTHER CHEST PAIN 10/06/2017 ALFREDO CADENA Ot M85.852 OT DISRD OF BONE DENSITY AND STRUCTURE, 10/06/2017 ALFREDO CADENA Ot M85.88 OTH DISRD OF BONE DENSITY AND STRUCTURE, 10/06/2017 ALFREDO CADENA Ot Z13.820 ENCOUNTER FOR SCREENING FOR OSTEOPOROSIS 10/06/[address] MD Ot C55 MALIGNANT NEOPLASM OF UTERUS, PART UNSPE 10/06/[address] MD, Ot C56. 2 MALIGNANT NEOPLASM OF LEFT OVARY 10/06/[address] MD, Ot C78. 5 SECONDARY MALIGNANT NEOPLASM OF LARGE IN 10/06/[address] MD, Ot C78. 6 SECONDARY MALIGNANT NEOPLASM OF RETROPER 10/06/[address] MD, Ot C79. 89 SECONDARY MALIGNANT NEOPLASM OF OTHER SP 10/06/[address] MD, Ot D50. 0 IRON DEFICIENCY ANEMIA SECONDARY TO BLOO 10/06/[address] MD, Ot D63. 1 ANEMIA IN CHRONIC KIDNEY DISEASE 10/06/[address] MD, Ot D64. 81 ANEMIA DUE TO ANTINEOPLASTIC CHEMOTHERAP 10/06/[address] MD, Ot I25. 10 ATHSCL HEART DISEASE OF BLACKFEET CORONARY 10/06/[address] MD, Ot K21. 0 GASTRO-ESOPHAGEAL REFLUX DISEASE WITH ES 10/06/[address] MD, Ot K44. 9 DIAPHRAGMATIC HERNIA WITHOUT OBSTRUCTION 10/06/[address] MD, Ot N18. 9 CHRONIC KIDNEY DISEASE, UNSPECIFIED 10/06/[address] MD, Ot Z79. 02 CUSTODIAL (CURRENT) USE OF ANTITHROMBOTI 10/06/[address] MD, Ot Z79. 82 CUSTODIAL (CURRENT) USE OF ASPIRIN 10/06/[address] MD, Ot Z85. 3 PERSONAL HISTORY OF MALIGNANT NEOPLASM O 10/06/[address] MD, Ot Z92. 21 PERSONAL HISTORY OF ANTINEOPLASTIC CHEMO 10/06/[address] MD, Ot Z95. 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 KENNEL ASSISTANT-C Ot R73.0 1 IMPAIRED FASTING GLUCOSE 10/07/2017 NEW, CRISTY G. KENNEL ASSISTANT-C Ot R80.9 PROTEINURIA, UNSPECIFIED 10/27/2017 NEW, CRISTY G. KENNEL ASSISTANT-C Ot D63.1 ANEMIA IN CHRONIC KIDNEY DISEASE 10/27/2017 NEW, CRISTY G. KENNEL ASSISTANT-C Ot E46 UNSPECIFIED PROTEIN-CALORIE MALNUTRITION 10/27/2017 NEW, CRISTY G. KENNEL ASSISTANT-C Ot E55.9 VITAMIN D DEFICIENCY, UNSPECIFIED 10/27/2017 NEW, CRISTY G. KENNEL ASSISTANT-C Ot E78.5 HYPERLIPIDEMIA, UNSPECIFIED 10/27/2017 NEW, CRISTY G. KENNEL ASSISTANT-C Ot E83.4 2 HYPOMAGNESEMIA 10/27/2017 NEW, CRISTY G. KENNEL ASSISTANT-C Ot E87.2 ACIDOSIS 10/27/2017 NEW, CRISTY G. KENNEL ASSISTANT-C Ot E87.3 ALKALOSIS 10/27/2017 NEW, CRISTY G. 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 KENNEL ASSISTANT-C Ot I70.1 ATHEROSCLEROSIS OF RENAL ARTERY 10/27/2017 NEW, CRISTY G. KENNEL ASSISTANT-C Ot N18.4 CHRONIC KIDNEY DISEASE, STAGE 4 (SEVERE) 10/27/2017 NEW, CRISTY G. KENNEL ASSISTANT-C Ot N25.8 1 SECONDARY HYPERPARATHYROIDISM OF RENAL O 10/27/2017 NEW, CRISTY G. KENNEL ASSISTANT-C Ot R73.0 1 IMPAIRED FASTING GLUCOSE 10/27/2017 NEW, CRISTY G. KENNEL ASSISTANT-C Ot R80.9 PROTEINURIA, UNSPECIFIED 11/15/2017 NEW, CRISTY G. KENNEL ASSISTANT-C Ot D63.1 ANEMIA IN CHRONIC KIDNEY DISEASE 11/15/2017 NEW, CRISTY G. KENNEL ASSISTANT-C Ot E46 UNSPECIFIED PROTEIN-CALORIE MALNUTRITION 11/15/2017 NEW, CRISTY G. KENNEL ASSISTANT-C Ot E55.9 VITAMIN D DEFICIENCY, UNSPECIFIED 11/15/2017 NEW, CRISTY G. KENNEL ASSISTANT-C Ot E78.5 HYPERLIPIDEMIA, UNSPECIFIED 11/15/2017 NEW, CRISTY G. KENNEL ASSISTANT-C Ot E83.4 2 HYPOMAGNESEMIA 11/15/2017 NEW, CRISTY G. 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, W S 11/15/2017 CRISTY SILVER KENNEL ASSISTANT-C Ot I70.1 ATHEROSCLEROSIS OF RENAL ARTERY 11/15/2017 CRISTY SILVER KENNEL ASSISTANT-C Ot N18.4 CHRONIC KIDNEY DISEASE, STAGE 4 (SEVERE) 11/15/2017 NEW, CRISTY Ross KENNEL ASSISTANT-C Ot N25.8 1 SECONDARY HYPERPARATHYROIDISM OF RENAL O 11/15/2017 NEWCRISTY KENNEL ASSISTANT-C Ot R73.0 1 IMPAIRED FASTING GLUCOSE 11/15/2017 CRISTY SILVER KENNEL ASSISTANT-C Ot R80.9 PROTEINURIA, UNSPECIFIED 12/22/2017 Ot V10.3 HX O F BREAST MALIGNANCY 12/22/2017 Ot V76.11 SCR N MAMMO-HIGH RISK PT, MALIGNANT NEOPL 12/22/2017 Ot 183.0 GEMMA GN NEOPL OVARY 12/22/2017 Ot 786.09 RES PIRATORY ABNORM NEC 12/22/2017 Ot 786.09 RES PIRATORY ABNORM NEC 12/22/[address] MD Ot 183. 0 MALIGN NEOPL OVARY 12/22/2017 BHARAT LIU, FERNY Gordon Ot V72.84 EXAM PRE-OPERATIVE NOS 12/22/2017 FERNY NICHOLSON MD Ot V72.84 EXAM PRE-OPERATIVE NOS 12/22/2017 FERNY NICHOLSON MD Ot V72.84 EXAM PRE-OPERATIVE NOS 12/22/[address] MD Ot 721. 0 CERVICAL SPONDYLOSIS 12/22/[address] MD Ot V76. 12 OTH SCREEN MAMMO-MALIGN NEOPLASM OF JORGE LUIS 12/22/2017 FERNY NICHOLSON MD Ot V72.84 EXAM PRE-OPERATIVE NOS 12/22/2017 FERNY NICHOLSON MD Ot V72.84 EXAM PRE-OPERATIVE NOS 12/22/2017 FERNY NICHOLSON MD Ot V72.84 EXAM PRE-OPERATIVE NOS 12/22/2017 ALFREDO CADENA Ot 585.3 CHRONIC KIDNEY DISEASE, STAGE III (MODER 12/22/2017 MAGDALENA PA, ALFREDO K Ot 793.5 NOSP (ABN) FINDINGS ON RADIOLOGICAL OT 12/22/2017 BHARAT LIU, FERNY Gordon Ot 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 12/22/2017 BHARAT LIU, FERNY Gordon Ot V72.84 EXAM PRE-OPERATIVE NOS 12/22/[address] MD Ot 174. 9 MALIGN NEOPL BREAST NOS 12/22/[address] MD, Ot V76. 11 SCRN MAMMO-HIGH RISK PT, MALIGNANT NEOPL 12/22/[address] MD Ot 183. 0 MALIGN NEOPL OVARY 12/22/2017 BAIMA, NALINI L REFRIGERATOR ROOM CLERK Ot 272.4 HYPERLIPIDEMIA NEC/NOS 12/22/2017 BAIMA, NALINI L REFRIGERATOR ROOM CLERK Ot 401.9 HYPERTENSION NOS 12/22/2017 BAIMA, NALINI L REFRIGERATOR ROOM CLERK Ot 414.9 CHR ISCHEMIC HRT DIS NOS 12/22/2017 CORYMA, NALINI L REFRIGERATOR ROOM CLERK Ot 437.9 CEREBROVASC DISEASE NOS 12/22/2017 BAIMA, NALINI L REFRIGERATOR ROOM CLERK Ot 272.4 HYPERLIPIDEMIA NEC/NOS 12/22/2017 CORYMA, NALINI L REFRIGERATOR ROOM CLERK Ot 401.9 HYPERTENSION NOS 12/22/2017 BAIMA, NALINI L REFRIGERATOR ROOM CLERK Ot 414.00 CORON ATHEROSCLER NOS TYPE VESSEL, NATIV 12/22/2017 CORYMA, NALINI L REFRIGERATOR ROOM CLERK Ot 437.9 CEREBROVASC DISEASE NOS 12/22/[address] MD Ot 174. 9 MALIGN NEOPL BREAST NOS 12/22/[address] MD Ot 183. 0 MALIGN NEOPL OVARY 12/22/2017 FERNY NICHOLSON MD Ot 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 12/22/2017 FERNY NICHOLSON MD Ot V72.84 EXAM PRE-OPERATIVE NOS 12/22/[address] MD Ot C50.919 MALIGNANT NEOPLASM OF UNSP SITE OF UNSPE 12/22/[address] MD, Ot C56. 9 MALIGNANT NEOPLASM OF UNSPECIFIED OVARY 12/22/[address] MD Ot T85.698A [facility] COMPL OF INTERNAL PROSTH DEV/GRFT, 12/22/2017 TEODORO HERNANDEZ DO Ot Z01.818 ENCOUNTER FOR OTHER PREPROCEDURAL EXAMIN 12/22/2017 XUN MD, ROSARIO-ARCELIA Ot C56. 2 MALIGNANT NEOPLASM OF LEFT OVARY 12/22/[address] MD Ot Z85. 3 PERSONAL HISTORY OF MALIGNANT NEOPLASM O 12/22/[address] MD Ot C50.919 MALIGNANT NEOPLASM OF UNSP SITE OF UNSPE 12/22/[address] MD, Ot C56. 9 MALIGNANT NEOPLASM OF UNSPECIFIED OVARY 12/22/[address] MD Ot Z12. 31 ENCNTR SCREEN MAMMOGRAM FOR MALIGNANT NE 12/22/[address] MD Ot C56. 1 MALIGNANT NEOPLASM OF RIGHT OVARY 12/22/[address] MD Ot N18. 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 2 MALIGNANT NEOPLASM OF LEFT OVARY 12/22/2017 ARIELLA PENALOZA DO Ot E78. 5 HYPERLIPIDEMIA, UNSPECIFIED 12/22/2017 YASH PENALOZA DOTT D Ot G47. 33 OBSTRUCTIVE SLEEP APNEA (ADULT) (PEDIATR 12/22/2017 ARIELLA PENALOZA DO D Ot I12. 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 2 CHRONIC KIDNEY DISEASE, STAGE 2 (MILD) 12/22/2017 ARIELLA PENALOZA DO Ot T82.514A BREAKDOWN (MECHANICAL) OF INFUSION PAT 12/22/2017 ARIELLA PENALOZA DO Ot Z79. 02 CUSTODIAL (CURRENT) USE OF ANTITHROMBOTI 12/22/2017 ARIELLA PENALOZA DO Ot Z79. 82 TELLER VAULT (CURRENT) USE OF ASPIRIN 12/22/2017 ARIELLA PENALOZA DO Ot Z85. 3 PERSONAL HISTORY OF MALIGNANT NEOPLASM O 12/22/2017 ARIELLA PENALOZA DO Ot C56. 9 MALIGNANT NEOPLASM OF UNSPECIFIED OVARY 12/22/2017 ARIELLA PENALOZA DO D Ot E78. 5 HYPERLIPIDEMIA, UNSPECIFIED 12/22/2017 CA LARIOS ARIELLA D Ot G47. 33 OBSTRUCTIVE SLEEP APNEA (ADULT) (PEDIATR 12/22/2017 YASH PENALOZA DOTT D Ot I12. 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 2 CHRONIC KIDNEY DISEASE, STAGE 2 (MILD) 12/22/2017 CA LARIOSARIELLA Ot T82.514D BREAKDOWN (MECHANICAL) OF INFUSION PAT 12/22/2017 CA LARIOS ARIELLA D Ot Z79. 02 TELLER VAULT (CURRENT) USE OF ANTITHROMBOTI 12/22/2017 CA LARIOSARIELLA Ot Z79. 82 TELLER VAULT (CURRENT) USE OF ASPIRIN 12/22/2017 CA LARIOSARIELLA Ot Z85. 3 PERSONAL HISTORY OF MALIGNANT NEOPLASM O 12/22/2017 JAD LIU, DANA Ot C56. 1 MALIGNANT NEOPLASM OF RIGHT OVARY 12/22/[address] MD Ot Z12. 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 12/22/2017 LAURA LIU FACC, MILKA FACP CCDS Ot I65.23 OCCLUSION AND STENOSIS OF BILATERAL REGAN 12/22/2017 LAURA LIU FACC, MILKA FACP CCDS Ot [...] SLEEP APNEA (ADULT) (PEDIATR 12/22/2017 LAURA LIU FACSherine, ALI FACP CCDS Ot I12.9 HYPERTENSIVE CHRONIC KIDNEY DISEASE W ST 12/22/2017 LAURA LIU FACC, ALI FACP CCDS Ot 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 31 ENCNTR SCREEN MAMMOGRAM FOR MALIGNANT NE 12/22/[address] MD, Ot C55 MALIGNANT NEOPLASM OF UTERUS, PART UNSPE 12/22/[address] MD, Ot C56. 2 MALIGNANT NEOPLASM OF LEFT OVARY 12/22/[address] MD, Ot C78. 5 SECONDARY MALIGNANT NEOPLASM OF LARGE IN 12/22/[address] MD, Ot C78. 6 SECONDARY MALIGNANT NEOPLASM OF RETROPER 12/22/[address] MD, Ot C79. 89 SECONDARY MALIGNANT NEOPLASM OF OTHER SP 12/22/[address] MD, Ot D50. 0 IRON DEFICIENCY ANEMIA SECONDARY TO BLOO 12/22/[address] MD, Ot D63. 1 ANEMIA IN CHRONIC KIDNEY DISEASE 12/22/[address] MD, Ot D64. 81 ANEMIA DUE TO ANTINEOPLASTIC CHEMOTHERAP 12/22/[address] MD, Ot I25. 10 ATHSCL HEART DISEASE OF BLACKFEET CORONARY 12/22/[address] MD, Ot K21. 0 GASTRO-ESOPHAGEAL REFLUX DISEASE WITH ES 12/22/[address] MD, Ot K44. 9 DIAPHRAGMATIC HERNIA WITHOUT OBSTRUCTION 12/22/[address] MD Ot N18. 9 CHRONIC KIDNEY DISEASE, UNSPECIFIED 12/22/[address] MD, Ot Z79. 02 CUSTODIAL (CURRENT) USE OF ANTITHROMBOTI 12/22/[address] MD Ot Z79. 82 CUSTODIAL (CURRENT) USE OF ASPIRIN 12/22/[address] MD, Ot Z85. 3 PERSONAL HISTORY OF MALIGNANT NEOPLASM O 12/22/[address] MD, Ot Z92. 21 PERSONAL HISTORY OF ANTINEOPLASTIC CHEMO 12/22/[address] MD Ot Z95. 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 0 MAMMOGRAPHIC MICROCALCIFICATION FOUND ON 12/23/[address] MD, Ot Z12. 31 ENCNTR SCREEN MAMMOGRAM FOR MALIGNANT NE 01/03/2018 Ot V10.3 HX O F BREAST MALIGNANCY 01/03/2018 Ot V76.11 SCR N MAMMO-HIGH RISK PT, MALIGNANT NEOPL 01/03/2018 Ot 183.0 GEMMA GN NEOPL OVARY 01/03/2018 Ot 786.09 RES PIRATORY ABNORM NEC 01/03/2018 Ot 786.09 RES PIRATORY ABNORM NEC 01/03/2018 JAD LIU, DANA Ot 183. 0 MALIGN NEOPL OVARY 01/03/2018 BHARAT LIU, FERNY S Ot V72.84 EXAM PRE-OPERATIVE NOS 01/03/2018 BHARAT LIU, FERNY S Ot V72.84 EXAM PRE-OPERATIVE NOS 01/03/2018 BHARAT LIU, FERNY S Ot V72.84 EXAM PRE-OPERATIVE NOS 01/03/2018 JAD LIU, DANA Ot 721. 0 CERVICAL SPONDYLOSIS 01/03/2018 JAD LIU, DANA Ot V76. 12 OTH SCREEN MAMMO-MALIGN NEOPLASM OF JORGE LUIS 01/03/2018 BHARAT LIU, FERNY S Ot V72.84 EXAM PRE-OPERATIVE NOS 01/03/2018 FERNY NICHOLSON MD S Ot V72.84 EXAM PRE-OPERATIVE NOS 01/03/2018 BHARAT LIU, FERNY S Ot V72.84 EXAM PRE-OPERATIVE NOS 01/03/2018 ALFREDO CADENA Ot 585.3 CHRONIC KIDNEY DISEASE, STAGE III (MODER 01/03/2018 ALFREDO CADENA Ot 793.5 NOSP (ABN) FINDINGS ON RADIOLOGICAL OT 01/03/2018 BHARAT LIU, FERNY S Ot 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 01/03/2018 FERNY NICHOLSON MD S Ot V72.84 EXAM PRE-OPERATIVE NOS 01/03/2018 JAD LIU, DANA Ot 174. 9 MALIGN NEOPL BREAST NOS 01/03/2018 JAD LIU, DANA Ot V76. 11 SCRN MAMMO-HIGH RISK PT, MALIGNANT NEOPL 01/03/2018 JAD LIU, DANA Ot 183. 0 MALIGN NEOPL OVARY 01/03/2018 NALINI SEBASTIAN REFRIGERATOR ROOM CLERK Ot 272.4 HYPERLIPIDEMIA NEC/NOS 01/03/2018 NALINI SEBASTIAN REFRIGERATOR ROOM CLERK Ot 401.9 HYPERTENSION NOS 01/03/2018 NALINI SEBASTIAN REFRIGERATOR ROOM CLERK Ot 414.9 CHR ISCHEMIC HRT DIS NOS 01/03/2018 CORYNALINI HOLLIS L REFRIGERATOR ROOM CLERK Ot 437.9 CEREBROVASC DISEASE NOS 01/03/2018 NALINI SEBASTIAN L REFRIGERATOR ROOM CLERK Ot 272.4 HYPERLIPIDEMIA NEC/NOS 01/03/2018 NALINI SEBASTIAN L REFRIGERATOR ROOM CLERK Ot 401.9 HYPERTENSION NOS 01/03/2018 CORYNALINI HOLLIS L REFRIGERATOR ROOM CLERK Ot 414.00 CORON ATHEROSCLER NOS TYPE VESSEL, NATIV 01/03/2018 NALINI SEBASTIAN L REFRIGERATOR ROOM CLERK Ot 437.9 CEREBROVASC DISEASE NOS 01/03/[address] MD Ot 174. 9 MALIGN NEOPL BREAST NOS 01/03/[address] MD Ot 183. 0 MALIGN NEOPL OVARY 01/03/2018 BHARAT LIU, FERNY S Ot 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 01/03/2018 FERNY NICHOLSON MD S Ot V72.84 EXAM PRE-OPERATIVE NOS 01/03/[address] MD, Ot C50.919 MALIGNANT NEOPLASM OF UNSP SITE OF UNSPE 01/03/[address] MD, Ot C56. 9 MALIGNANT NEOPLASM OF UNSPECIFIED OVARY 01/03/[address] MD Ot T85.698A [facility] COMPL OF INTERNAL PROSTH DEV/GRFT, 01/03/2018 TEODORO HERNANDEZ DO Ot Z01.818 ENCOUNTER FOR OTHER PREPROCEDURAL EXAMIN 01/03/[address] MD Ot C56. 2 MALIGNANT NEOPLASM OF LEFT OVARY 01/03/[address] MD Ot Z85. 3 PERSONAL HISTORY OF MALIGNANT NEOPLASM O 01/03/[address] MD, Ot C50.919 MALIGNANT NEOPLASM OF UNSP SITE OF UNSPE 01/03/[address] MD, Ot C56. 9 MALIGNANT NEOPLASM OF UNSPECIFIED OVARY 01/03/[address] MD, Ot Z12. 31 ENCNTR SCREEN MAMMOGRAM FOR MALIGNANT NE 01/03/[address] MD, Ot C56. 1 MALIGNANT NEOPLASM OF RIGHT OVARY 01/03/[address] MD Ot N18. 9 CHRONIC KIDNEY DISEASE, UNSPECIFIED 01/03/2018 ARIELLA PENALOZA DO Ot C55 MALIGNANT NEOPLASM OF UTERUS, PART UNSPE 01/03/2018 CA DO ARIELLA D Ot C56. 2 MALIGNANT NEOPLASM OF LEFT OVARY 01/03/2018 CA DO ARIELLA D Ot E78. 5 HYPERLIPIDEMIA, UNSPECIFIED 01/03/2018 PENALOZA DO ARIELLA D Ot G47. 33 OBSTRUCTIVE SLEEP APNEA (ADULT) (PEDIATR 01/03/2018 PENALOZA DO ARIELLA D Ot I12. 9 HYPERTENSIVE CHRONIC KIDNEY DISEASE W ST 01/03/2018 PENALOZA DO ARIELLA D Ot I25. 10 ATHSCL HEART DISEASE OF BLACKFEET CORONARY 01/03/2018 PENALOZA DO, ARIELLA D Ot N18. 2 CHRONIC KIDNEY DISEASE, STAGE 2 (MILD) 01/03/2018 CA DOYASHTT D Ot T82.514A BREAKDOWN (MECHANICAL) OF INFUSION PAT 01/03/2018 CA DOARIELLA D Ot Z79. 02 CUSTODIAL (CURRENT) USE OF ANTITHROMBOTI 01/03/2018 CA DOYASHTT D Ot Z79. 82 TELLER VAULT (CURRENT) USE OF ASPIRIN 01/03/2018 CA DOYASHTT D Ot Z85. 3 PERSONAL HISTORY OF MALIGNANT NEOPLASM O 01/03/2018 CA DOYASHTT D Ot C56. 9 MALIGNANT NEOPLASM OF UNSPECIFIED OVARY 01/03/2018 YASH PENALOZA DOTT D Ot E78. 5 HYPERLIPIDEMIA, UNSPECIFIED 01/03/2018 CA DO ARIELLA D Ot G47. 33 OBSTRUCTIVE SLEEP APNEA (ADULT) (PEDIATR 01/03/2018 PENALOZA DOYASHTT D Ot I12. 9 HYPERTENSIVE CHRONIC KIDNEY DISEASE W ST 01/03/2018 PENALOZA DOYASHTT D Ot I25. 10 ATHSCL HEART DISEASE OF BLACKFEET CORONARY 01/03/2018 PENALOZA DO ARIELLA D Ot N18. 2 CHRONIC KIDNEY DISEASE, STAGE 2 (MILD) 01/03/2018 PENALOZA DOYASHTT D Ot T82.514D BREAKDOWN (MECHANICAL) OF INFUSION PAT 01/03/2018 PENALOZA DOYASHTT D Ot Z79. 02 CUSTODIAL (CURRENT) USE OF ANTITHROMBOTI 01/03/2018 PENALOZA DO ARIELLA D Ot Z79. 82 TELLER VAULT (CURRENT) USE OF ASPIRIN 01/03/2018 PENALOZA DOYASHTT D Ot Z85. 3 PERSONAL HISTORY OF MALIGNANT NEOPLASM O 01/03/[address] MD Ot C56. 1 MALIGNANT NEOPLASM OF RIGHT OVARY 01/03/[address] MD Ot Z12. 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 01/03/2018 LAURA LIU FACC, ALI FACP CCDS Ot I65.23 OCCLUSION AND STENOSIS OF BILATERAL REGAN 01/03/2018 LAURA NYEC, ALI FACP CCDS Ot N18.2 CHRONIC KIDNEY DISEASE, STAGE 2 (MILD) 01/03/2018 LAURA NYEC, ALI FACP CCDS Ot R07.89 OTHER CHEST PAIN 01/03/2018 LAURA LIU FACC, ALI FACP CCDS Ot E66.09 OTHER OBESITY DUE TO EXCESS CALORIES 01/03/2018 LAURA NYEC, ALI FACP CCDS Ot E78.4 OTHER HYPERLIPIDEMIA 01/03/2018 LAURA LIU FACC, ALI FACP CCDS Ot G47.33 OBSTRUCTIVE SLEEP APNEA (ADULT) (PEDIATR 01/03/2018 LAURA NYEC, ALI FACP CCDS Ot I12.9 HYPERTENSIVE CHRONIC KIDNEY DISEASE W ST 01/03/2018 LAURA NYEC, ALI FACP CCDS Ot 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 0 MAMMOGRAPHIC MICROCALCIFICATION FOUND ON 01/03/[address] MD, Ot Z12. 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 2 MALIGNANT NEOPLASM OF LEFT OVARY 01/07/[address] MD Ot C78. 5 SECONDARY MALIGNANT NEOPLASM OF LARGE IN 01/07/[address] MD, Ot C78. 6 SECONDARY MALIGNANT NEOPLASM OF RETROPER 01/07/[address] MD, Ot C79. 89 SECONDARY MALIGNANT NEOPLASM OF OTHER SP 01/07/[address] MD, Ot D50. 0 IRON DEFICIENCY ANEMIA SECONDARY TO BLOO 01/07/[address] MD, Ot D63. 1 ANEMIA IN CHRONIC KIDNEY DISEASE 01/07/[address] MD, Ot D64. 81 ANEMIA DUE TO ANTINEOPLASTIC CHEMOTHERAP 01/07/[address] MD, Ot I25. 10 ATHSCL HEART DISEASE OF BLACKFEET CORONARY 01/07/[address] MD, Ot K21. 0 GASTRO-ESOPHAGEAL REFLUX DISEASE WITH ES 01/07/[address] MD, Ot K44. 9 DIAPHRAGMATIC HERNIA WITHOUT OBSTRUCTION 01/07/[address] MD, Ot N18. 9 CHRONIC KIDNEY DISEASE, UNSPECIFIED 01/07/[address] MD, Ot Z79. 02 CUSTODIAL (CURRENT) USE OF ANTITHROMBOTI 01/07/[address] MD, Ot Z79. 82 TELLER VAULT (CURRENT) USE OF ASPIRIN 01/07/[address] MD Ot Z85. 3 PERSONAL HISTORY OF MALIGNANT NEOPLASM O 01/07/[address] MD Ot Z92. 21 PERSONAL HISTORY OF ANTINEOPLASTIC CHEMO 01/07/[address] MD Ot Z95. 5 PRESENCE OF CORONARY ANGIOPLASTY IMPLANT 01/11/[address] MD Ot R92. 0 MAMMOGRAPHIC MICROCALCIFICATION FOUND ON 01/11/[address] MD Ot Z12. 31 ENCNTR SCREEN MAMMOGRAM FOR MALIGNANT NE 01/13/2018 Ot V10.3 HX O F BREAST MALIGNANCY 01/13/2018 Ot V76.11 SCR N MAMMO-HIGH RISK PT, MALIGNANT NEOPL 01/13/2018 Ot 183.0 GEMMA GN NEOPL OVARY 01/13/2018 Ot 786.09 RES PIRATORY ABNORM NEC 01/13/2018 Ot 786.09 RES PIRATORY ABNORM NEC 01/13/[address] MD Ot 183. 0 MALIGN NEOPL OVARY 01/13/2018 FERNY NICHOLSON MD Ot V72.84 EXAM PRE-OPERATIVE NOS 01/13/2018 BHARAT MD, FERNY S Ot V72.84 EXAM PRE-OPERATIVE NOS 01/13/2018 BHARAT LIU, FERNY S Ot V72.84 EXAM PRE-OPERATIVE NOS 01/13/2018 JAD LIU, DANA Ot 721. 0 CERVICAL SPONDYLOSIS 01/13/[address] MD Ot V76. 12 OTH SCREEN MAMMO-MALIGN NEOPLASM OF JORGE LUIS 01/13/2018 BHARAT LIU, FERNY S Ot V72.84 EXAM PRE-OPERATIVE NOS 01/13/2018 BHARAT LIU, FERNY Gordon Ot V72.84 EXAM PRE-OPERATIVE NOS 01/13/2018 BHARAT LIU, FERNY S Ot V72.84 EXAM PRE-OPERATIVE NOS 01/13/2018 ALFREDO CADENA Ot 585.3 CHRONIC KIDNEY DISEASE, STAGE III (MODER 01/13/2018 ALFREDO CADENA Ot 793.5 NOSP (ABN) FINDINGS ON RADIOLOGICAL OT 01/13/2018 BHARAT LIU, FERNY Gordon Ot 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 01/13/2018 BHARAT LIU, FERNY S Ot V72.84 EXAM PRE-OPERATIVE NOS 01/13/[address] MD Ot 174. 9 MALIGN NEOPL BREAST NOS 01/13/[address] MD Ot V76. 11 SCRN MAMMO-HIGH RISK PT, MALIGNANT NEOPL 01/13/[address] MD Ot 183. 0 MALIGN NEOPL OVARY 01/13/2018 MARIYA SEBASTIANHER L REFRIGERATOR ROOM CLERK Ot 272.4 HYPERLIPIDEMIA NEC/NOS 01/13/2018 CORYMA NALINI L REFRIGERATOR ROOM CLERK Ot 401.9 HYPERTENSION NOS 01/13/2018 JAZ NALINI L REFRIGERATOR ROOM CLERK Ot 414.9 CHR ISCHEMIC HRT DIS NOS 01/13/2018 JAZ NALINI L REFRIGERATOR ROOM CLERK Ot 437.9 CEREBROVASC DISEASE NOS 01/13/2018 JAZ NALINI L REFRIGERATOR ROOM CLERK Ot 272.4 HYPERLIPIDEMIA NEC/NOS 01/13/2018 JAZ, NALINI L REFRIGERATOR ROOM CLERK Ot 401.9 HYPERTENSION NOS 01/13/2018 JAZ NALINI L REFRIGERATOR ROOM CLERK Ot 414.00 CORON ATHEROSCLER NOS TYPE VESSEL, NATIV 01/13/2018 MARIYA SEBASTIANHER L REFRIGERATOR ROOM CLERK Ot 437.9 CEREBROVASC DISEASE NOS 01/13/[address] MD Ot 174. 9 MALIGN NEOPL BREAST NOS 01/13/[address] MD Ot 183. 0 MALIGN NEOPL OVARY 01/13/2018 FERNY NICHOLSON MD Ot 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 01/13/2018 FERNY NICHOLSON MD Ot V72.84 EXAM PRE-OPERATIVE NOS 01/13/[address] MD, Ot C50.919 MALIGNANT NEOPLASM OF UNSP SITE OF UNSPE 01/13/[address] MD, Ot C56. 9 MALIGNANT NEOPLASM OF UNSPECIFIED OVARY 01/13/[address] MD Ot T85.698A [facility] COMPL OF INTERNAL PROSTH DEV/GRFT, 01/13/2018 TEODORO HERNANDEZ DO Ot Z01.818 ENCOUNTER FOR OTHER PREPROCEDURAL EXAMIN 01/13/[address] MD, Ot C56. 2 MALIGNANT NEOPLASM OF LEFT OVARY 01/13/[address] MD Ot Z85. 3 PERSONAL HISTORY OF MALIGNANT NEOPLASM O 01/13/[address] MD, Ot C50.919 MALIGNANT NEOPLASM OF UNSP SITE OF UNSPE 01/13/[address] MD, Ot C56. 9 MALIGNANT NEOPLASM OF UNSPECIFIED OVARY 01/13/[address] MD Ot Z12. 31 ENCNTR SCREEN MAMMOGRAM FOR MALIGNANT NE 01/13/[address] MD, Ot C56. 1 MALIGNANT NEOPLASM OF RIGHT OVARY 01/13/[address] MD Ot N18. 9 CHRONIC KIDNEY DISEASE, UNSPECIFIED 01/13/2018 ARIELLA PENALOZA DO Ot C55 MALIGNANT NEOPLASM OF UTERUS, PART UNSPE 01/13/2018 ARIELLA PENALOZA DO Ot C56. 2 MALIGNANT NEOPLASM OF LEFT OVARY 01/13/2018 ARIELLA PENALOZA DO Ot E78. 5 HYPERLIPIDEMIA, UNSPECIFIED 01/13/2018 ARIELLA PENALOZA DO Ot G47. 33 OBSTRUCTIVE SLEEP APNEA (ADULT) (PEDIATR 01/13/2018 ARIELLA PENALOZA DO Ot I12. 9 HYPERTENSIVE CHRONIC KIDNEY DISEASE W ST 01/13/2018 ARIELLA PENALOZA DO Ot I25. 10 ATHSCL HEART DISEASE OF [place]FE[place] CORONARY 01/13/2018 ARIELLA PENALOZA DO Ot N18. 2 CHRONIC KIDNEY DISEASE, STAGE 2 (MILD) 01/13/2018 PENALOZA DO, ARIELLA D Ot T82.514A BREAKDOWN (MECHANICAL) OF INFUSION PAT 01/13/2018 PENALOZA DO, ARIELLA D Ot Z79. 02 TELLER VAULT (CURRENT) USE OF ANTITHROMBOTI 01/13/2018 PENALOZA DO, ARIELLA D Ot Z79. 82 TELLER VAULT (CURRENT) USE OF ASPIRIN 01/13/2018 PENALOZA DO, ARIELLA D Ot Z85. 3 PERSONAL HISTORY OF MALIGNANT NEOPLASM O 01/13/2018 PENALOZA DO ARIELLA D Ot C56. 9 MALIGNANT NEOPLASM OF UNSPECIFIED OVARY 01/13/2018 PENALOZA DO, ARIELLA D Ot E78. 5 HYPERLIPIDEMIA, UNSPECIFIED 01/13/2018 PENALOZA DO, ARIELLA D Ot G47. 33 OBSTRUCTIVE SLEEP APNEA (ADULT) (PEDIATR 01/13/2018 PENALOZA DO, ARIELLA D Ot I12. 9 HYPERTENSIVE CHRONIC KIDNEY DISEASE W ST 01/13/2018 PENALOZA DO, ARIELLA D Ot I25. 10 ATHSCL HEART DISEASE OF [place]FE[place] CORONARY 01/13/2018 PENLAOZA DO ARIELLA D Ot N18. 2 CHRONIC KIDNEY DISEASE, STAGE 2 (MILD) 01/13/2018 PENALOZA DO, ARIELLA D Ot T82.514D BREAKDOWN (MECHANICAL) OF INFUSION PAT 01/13/2018 PENALOZA DO, ARIELLA D Ot Z79. 02 CUSTODIAL (CURRENT) USE OF ANTITHROMBOTI 01/13/2018 PENALOZA DO, ARIELLA D Ot Z79. 82 CUSTODIAL (CURRENT) USE OF ASPIRIN 01/13/2018 PENALOZA DO ARIELLA D Ot Z85. 3 PERSONAL HISTORY OF MALIGNANT NEOPLASM O 01/13/[address] MD Ot C56. 1 MALIGNANT NEOPLASM OF RIGHT OVARY 01/13/[address] MD Ot Z12. 31 ENCNTR SCREEN MAMMOGRAM FOR MALIGNANT NE 01/13/2018 LAURA LIU FACC, MILKA BAÑUELOS CCDS Ot E66.09 OTHER OBESITY DUE TO EXCESS CALORIES 01/13/2018 LAURA LIU FACC, MILKA BAÑUELOS CCDS Ot E78.4 OTHER HYPERLIPIDEMIA 01/13/2018 LAURA LIU FACC, MILKA NYEP CCDS Ot G47.33 OBSTRUCTIVE SLEEP APNEA (ADULT) (PEDIATR 01/13/2018 LAURA LIU FACC, MILKA NYEP CCDS Ot I12.9 HYPERTENSIVE CHRONIC KIDNEY DISEASE W ST 01/13/2018 LAURA LIU FACC, ALI FACP CCDS Ot 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 01/13/2018 LAURA LIU FACC, ALI FACP CCDS Ot I65.23 OCCLUSION AND STENOSIS OF BILATERAL REGAN 01/13/2018 LAURA LIU FACC, ALI FACP CCDS Ot N18.2 CHRONIC KIDNEY DISEASE, STAGE 2 (MILD) 01/13/2018 LAURA LIU FACC, ALI FACP CCDS Ot R07.89 OTHER CHEST PAIN 01/13/2018 LAURA LIU FACC, ALI FACP CCDS Ot E66.09 OTHER OBESITY DUE TO EXCESS CALORIES 01/13/2018 LAURA MD FACC, ALI FACP CCDS Ot E78.4 OTHER HYPERLIPIDEMIA 01/13/2018 LAURA LIU FACC, ALI FACP CCDS Ot G47.33 OBSTRUCTIVE SLEEP APNEA (ADULT) (PEDIATR 01/13/2018 LAURA LIU FACC, ALI FACP CCDS Ot I12.9 HYPERTENSIVE CHRONIC KIDNEY DISEASE W ST 01/13/2018 LAURA LIU FACC, ALI FACP CCDS Ot 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 01/13/2018 LAURA LIU FACC, ALI FACP CCDS Ot I65.23 OCCLUSION AND STENOSIS OF BILATERAL REGAN 01/13/2018 LAURA LIU FACC, ALI FACP CCDS Ot N18.2 CHRONIC KIDNEY DISEASE, STAGE 2 (MILD) 01/13/2018 LAURA LIU FACC, ALI FACP CCDS Ot R07.89 OTHER CHEST PAIN 01/13/2018 ALFREDO CADENA Ot M85.852 OT DISRD OF BONE DENSITY AND STRUCTURE, 01/13/2018 ALFREDO CADENA Ot M85.88 OTH DISRD OF BONE DENSITY AND STRUCTURE, 01/13/2018 ALFREDO CADENA Ot Z13.820 ENCOUNTER FOR SCREENING FOR OSTEOPOROSIS 01/13/[address] MD, Ot R92. 0 MAMMOGRAPHIC MICROCALCIFICATION FOUND ON 01/13/[address] MD, Ot Z12. 31 ENCNTR SCREEN MAMMOGRAM FOR MALIGNANT NE 01/13/[address] MD, Ot C55 MALIGNANT NEOPLASM OF UTERUS, PART UNSPE 01/13/[address] MD, Ot C56. 2 MALIGNANT NEOPLASM OF LEFT OVARY 01/13/[address] MD Ot C78. 5 SECONDARY MALIGNANT NEOPLASM OF LARGE IN 01/13/[address] MD, Ot C78. 6 SECONDARY MALIGNANT NEOPLASM OF RETROPER 01/13/[address] MD, Ot C79. 89 SECONDARY MALIGNANT NEOPLASM OF OTHER SP 01/13/[address] MD, Ot D50. 0 IRON DEFICIENCY ANEMIA SECONDARY TO BLOO 01/13/[address] MD, Ot D63. 1 ANEMIA IN CHRONIC KIDNEY DISEASE 01/13/[address] MD, Ot D64. 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 0 GASTRO-ESOPHAGEAL REFLUX DISEASE WITH ES 01/13/[address] MD, Ot K44. 9 DIAPHRAGMATIC HERNIA WITHOUT OBSTRUCTION 01/13/[address] MD, Ot N18. 9 CHRONIC KIDNEY DISEASE, UNSPECIFIED 01/13/[address] MD, Ot Z79. 02 CUSTODIAL (CURRENT) USE OF ANTITHROMBOTI 01/13/[address] MD, Ot Z79. 82 TELLER VAULT (CURRENT) USE OF ASPIRIN 01/13/[address] MD, Ot Z85. 3 PERSONAL HISTORY OF MALIGNANT NEOPLASM O 01/13/[address] MD Ot Z92. 21 PERSONAL HISTORY OF ANTINEOPLASTIC CHEMO 01/13/[address] MD Ot Z95. 5 PRESENCE OF CORONARY ANGIOPLASTY IMPLANT 01/13/2018 CRISTY SILVER Ot D63.1 ANEMIA IN CHRONIC KIDNEY DISEASE 01/13/2018 CRISTY SILVER Ot E46 UNSPECIFIED PROTEIN-CALORIE MALNUTRITION 01/13/2018 CRISTY SILVER Ot E55.9 VITAMIN D DEFICIENCY, UNSPECIFIED 01/13/2018 CRISTY SILVER Ot E78.5 HYPERLIPIDEMIA, UNSPECIFIED 01/13/2018 CRISTY SILVER Ot E83.4 2 HYPOMAGNESEMIA 01/13/2018 CRISTY SILVER Ot E87.2 ACIDOSIS 01/13/2018 CRISTY SILVER Ot E87.3 ALKALOSIS 01/13/2018 CRISTY SILVER Ot I13.1 0 HYP HRT CHR KDNY DIS W/O HRT FAIL, W S 01/13/2018 CRISTY SILVER Ot I70.1 ATHEROSCLEROSIS OF RENAL ARTERY 01/13/2018 CRISTY SILVER Ot N18.4 CHRONIC KIDNEY DISEASE, STAGE 4 (SEVERE) 01/13/2018 CRISTY SILVER Ot N25.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 8 OTH ABN AND INCONCLUSIVE FINDINGS ON DX 01/14/[address] MD, Ot R92. 0 MAMMOGRAPHIC MICROCALCIFICATION FOUND ON 01/14/[address] MD, Ot Z12. 31 ENCNTR SCREEN MAMMOGRAM FOR MALIGNANT NE 01/18/[address] MD, Ot C56. 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 0 FATTY (CHANGE OF) LIVER, NOT ELSEWHERE C 01/18/[address] MD, Ot R91. 8 OTHER NONSPECIFIC ABNORMAL FINDING OF KEVYN 02/01/[address] MD, Ot C55 MALIGNANT NEOPLASM OF UTERUS, PART UNSPE 02/01/[address] MD, Ot C56. 2 MALIGNANT NEOPLASM OF LEFT OVARY 02/01/[address] MD, Ot C78. 5 SECONDARY MALIGNANT NEOPLASM OF LARGE IN 02/01/[address] MD, Ot C78. 6 SECONDARY MALIGNANT NEOPLASM OF RETROPER 02/01/[address] MD, Ot C79. 89 SECONDARY MALIGNANT NEOPLASM OF OTHER SP 02/01/[address] MD, Ot D50. 0 IRON DEFICIENCY ANEMIA SECONDARY TO BLOO 02/01/[address] MD, Ot D63. 1 ANEMIA IN CHRONIC KIDNEY DISEASE 02/01/[address] MD, Ot D64. 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 0 GASTRO-ESOPHAGEAL REFLUX DISEASE WITH ES 02/01/[address] MD, Ot K44. 9 DIAPHRAGMATIC HERNIA WITHOUT OBSTRUCTION 02/01/[address] MD, Ot N18. 9 CHRONIC KIDNEY DISEASE, UNSPECIFIED 02/01/[address] MD, Ot Z79. 02 CUSTODIAL (CURRENT) USE OF ANTITHROMBOTI 02/01/[address] MD, Ot Z79. 82 CUSTODIAL (CURRENT) USE OF ASPIRIN 02/01/[address] MD, Ot Z85. 3 PERSONAL HISTORY OF MALIGNANT NEOPLASM O 02/01/[address] MD, Ot Z92. 21 PERSONAL HISTORY OF ANTINEOPLASTIC CHEMO 02/01/[address] MD, Ot Z95. 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 1 ABNORMAL COAGULATION PROFILE 02/02/[address] MD, Ot R92. 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 1 ABNORMAL COAGULATION PROFILE 02/09/[address] MD, Ot C56. 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 1 SOLITARY PULMONARY NODULE 02/09/[address] MD, Ot C55 MALIGNANT NEOPLASM OF UTERUS, PART UNSPE 02/09/[address] MD, Ot C56. 2 MALIGNANT NEOPLASM OF LEFT OVARY 02/09/[address] MD, Ot C78. 5 SECONDARY MALIGNANT NEOPLASM OF LARGE IN 02/09/[address] MD, Ot C78. 6 SECONDARY MALIGNANT NEOPLASM OF RETROPER 02/09/[address] MD, Ot C79. 89 SECONDARY MALIGNANT NEOPLASM OF OTHER SP 02/09/[address] MD, Ot D50. 0 IRON DEFICIENCY ANEMIA SECONDARY TO BLOO 02/09/[address] MD, Ot D63. 1 ANEMIA IN CHRONIC KIDNEY DISEASE 02/09/[address] MD, Ot D64. 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 0 GASTRO-ESOPHAGEAL REFLUX DISEASE WITH ES 02/09/[address] MD, Ot K44. 9 DIAPHRAGMATIC HERNIA WITHOUT OBSTRUCTION 02/09/[address] MD, Ot N18. 9 CHRONIC KIDNEY DISEASE, UNSPECIFIED 02/09/[address] MD, Ot Z79. 02 TELLER VAULT (CURRENT) USE OF ANTITHROMBOTI 02/09/[address] MD, Ot Z79. 82 TELLER VAULT (CURRENT) USE OF ASPIRIN 02/09/[address] MD, Ot Z85. 3 PERSONAL HISTORY OF MALIGNANT NEOPLASM O 02/09/[address] MD, Ot Z92. 21 PERSONAL HISTORY OF ANTINEOPLASTIC CHEMO 02/09/[address] MD, Ot Z95. 5 PRESENCE OF CORONARY ANGIOPLASTY IMPLANT 02/09/[address] MD, Ot R92. 1 MAMMOGRAPHIC CALCIFCN FOUND ON DIAGNOSTI 02/09/[address] MD Ot C55 MALIGNANT NEOPLASM OF UTERUS, PART UNSPE 02/09/[address] MD, Ot C56. 2 MALIGNANT NEOPLASM OF LEFT OVARY 02/09/[address] MD, Ot C78. 5 SECONDARY MALIGNANT NEOPLASM OF LARGE IN 02/09/[address] MD, Ot C78. 6 SECONDARY MALIGNANT NEOPLASM OF RETROPER 02/09/[address] MD, Ot C79. 89 SECONDARY MALIGNANT NEOPLASM OF OTHER SP 02/09/[address] MD, Ot D50. 0 IRON DEFICIENCY ANEMIA SECONDARY TO BLOO 02/09/[address] MD, Ot D63. 1 ANEMIA IN CHRONIC KIDNEY DISEASE 02/09/[address] MD, Ot D64. 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 0 GASTRO-ESOPHAGEAL REFLUX DISEASE WITH ES 02/09/[address] MD, Ot K44. 9 DIAPHRAGMATIC HERNIA WITHOUT OBSTRUCTION 02/09/[address] MD, Ot N18. 9 CHRONIC KIDNEY DISEASE, UNSPECIFIED 02/09/[address] MD, Ot Z79. 02 TELLER VAULT (CURRENT) USE OF ANTITHROMBOTI 02/09/[address] MD, Ot Z79. 82 CUSTODIAL (CURRENT) USE OF ASPIRIN 02/09/[address] MD, Ot Z85. 3 PERSONAL HISTORY OF MALIGNANT NEOPLASM O 02/09/[address] MD, Ot Z92. 21 PERSONAL HISTORY OF ANTINEOPLASTIC CHEMO 02/09/[address] MD, Ot Z95. 5 PRESENCE OF CORONARY ANGIOPLASTY IMPLANT 02/09/[address] MD, Ot C56. 1 MALIGNANT NEOPLASM OF RIGHT OVARY 02/09/[address] MD Ot D05. 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 0 FATTY (CHANGE OF) LIVER, NOT ELSEWHERE C 02/09/[address] MD, Ot R91. 8 OTHER NONSPECIFIC ABNORMAL FINDING OF KEVYN 02/15/[address] MD, Ot C56. 1 MALIGNANT NEOPLASM OF RIGHT OVARY 02/15/[address] MD Ot D05. 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 0 FATTY (CHANGE OF) LIVER, NOT ELSEWHERE C 02/15/[address] MD Ot R91. 8 OTHER NONSPECIFIC ABNORMAL FINDING OF KEVYN 02/28/[address] MD, Ot C56. 1 MALIGNANT NEOPLASM OF RIGHT OVARY 02/28/[address] MD Ot D05. 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 1 SOLITARY PULMONARY NODULE 03/04/[address] MD, Ot C56. 1 MALIGNANT NEOPLASM OF RIGHT OVARY 03/04/[address] MD, Ot D05. 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 1 SOLITARY PULMONARY NODULE 03/11/[address] MD, Ot C55 MALIGNANT NEOPLASM OF UTERUS, PART UNSPE 03/11/[address] MD, Ot C56. 2 MALIGNANT NEOPLASM OF LEFT OVARY 03/11/[address] MD, Ot C78. 5 SECONDARY MALIGNANT NEOPLASM OF LARGE IN 03/11/[address] MD, Ot C78. 6 SECONDARY MALIGNANT NEOPLASM OF RETROPER 03/11/[address] MD, Ot C79. 89 SECONDARY MALIGNANT NEOPLASM OF OTHER SP 03/11/[address] MD, Ot D50. 0 IRON DEFICIENCY ANEMIA SECONDARY TO BLOO 03/11/[address] MD, Ot D63. 1 ANEMIA IN CHRONIC KIDNEY DISEASE 03/11/[address] MD, Ot D64. 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 0 GASTRO-ESOPHAGEAL REFLUX DISEASE WITH ES 03/11/[address] MD, Ot K44. 9 DIAPHRAGMATIC HERNIA WITHOUT OBSTRUCTION 03/11/[address] MD, Ot N18. 9 CHRONIC KIDNEY DISEASE, UNSPECIFIED 03/11/[address] MD, Ot Z51. 11 ENCOUNTER FOR ANTINEOPLASTIC CHEMOTHERAP 03/11/[address] MD, Ot Z79. 02 CUSTODIAL (CURRENT) USE OF ANTITHROMBOTI 03/11/[address] MD, Ot Z79. 82 TELLER VAULT (CURRENT) USE OF ASPIRIN 03/11/[address] MD, Ot Z85. 3 PERSONAL HISTORY OF MALIGNANT NEOPLASM O 03/11/[address] MD, Ot Z92. 21 PERSONAL HISTORY OF ANTINEOPLASTIC CHEMO 03/11/[address] MD, Ot Z95. 5 PRESENCE OF CORONARY ANGIOPLASTY IMPLANT 03/11/2018 KESHAV MD, MONTALVO Ot C55 MALIGNANT NEOPLASM OF UTERUS, PART [...] MD, Ot 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 03/11/2018 KATIA PARR MD Ot K21.0 GASTRO-ESOPHAGEAL REFLUX DISEASE WITH ES 03/11/2018 KATIA PARR MD Ot K44.9 DIAPHRAGMATIC HERNIA WITHOUT OBSTRUCTION 03/11/2018 KATIA PARR MD Ot N18.9 CHRONIC KIDNEY DISEASE, UNSPECIFIED 03/11/2018 KATIA PARR MD Ot Z79.02 TELLER VAULT (CURRENT) USE OF ANTITHROMBOTI 03/11/2018 KATIA PARR MD Ot Z79.82 TELLER VAULT (CURRENT) USE OF ASPIRIN 03/11/2018 KATIA PARR MD Ot Z85.3 PERSONAL HISTORY OF MALIGNANT NEOPLASM O 03/11/2018 KATIA PARR MD Ot Z92.21 PERSONAL HISTORY OF ANTINEOPLASTIC CHEMO 03/11/2018 KATIA PARR MD Ot Z95.5 PRESENCE OF CORONARY ANGIOPLASTY IMPLANT 03/11/2018 Ot V10.3 HX O F BREAST MALIGNANCY 03/11/2018 Ot V76.11 SCR N MAMMO-HIGH RISK PT, MALIGNANT NEOPL 03/11/2018 Ot 183.0 GEMMA GN NEOPL OVARY 03/11/2018 Ot 786.09 RES PIRATORY ABNORM NEC 03/11/2018 Ot 786.09 RES PIRATORY ABNORM NEC 03/11/[address] MD Ot 183. 0 MALIGN NEOPL OVARY 03/11/2018 FERNY NICHOLSON MD Ot V72.84 EXAM PRE-OPERATIVE NOS 03/11/2018 FERNY NICHOLSON MD Ot V72.84 EXAM PRE-OPERATIVE NOS 03/11/2018 BHARAT LIU, FERNY S Ot V72.84 EXAM PRE-OPERATIVE NOS 03/11/2018 JAD LIU, DANA Ot 721. 0 CERVICAL SPONDYLOSIS 03/11/2018 JAD LIU, DANA Ot V76. 12 OTH SCREEN MAMMO-MALIGN NEOPLASM OF JORGE LUIS 03/11/2018 BHARAT LIU, FERNY S Ot V72.84 EXAM PRE-OPERATIVE NOS 03/11/2018 BHARAT LIU, FERNY S Ot V72.84 EXAM PRE-OPERATIVE NOS 03/11/2018 BHARAT LIU, FERNY S Ot V72.84 EXAM PRE-OPERATIVE NOS 03/11/2018 ALFREDO CADENA Ot 585.3 CHRONIC KIDNEY DISEASE, STAGE III (MODER 03/11/2018 ALFREDO CADENA Ot 793.5 NOSP (ABN) FINDINGS ON RADIOLOGICAL OT 03/11/2018 BHARAT LIU, FERNY S Ot 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 03/11/2018 BHARAT LIU, FERNY S Ot V72.84 EXAM PRE-OPERATIVE NOS 03/11/2018 JAD LIU, DANA Ot 174. 9 MALIGN NEOPL BREAST NOS 03/11/[address] MD Ot V76. 11 SCRN MAMMO-HIGH RISK PT, MALIGNANT NEOPL 03/11/[address] MD Ot 183. 0 MALIGN NEOPL OVARY 03/11/2018 CORYMA, NALINI L REFRIGERATOR ROOM CLERK Ot 272.4 HYPERLIPIDEMIA NEC/NOS 03/11/2018 CORYMA, NALINI L REFRIGERATOR ROOM CLERK Ot 401.9 HYPERTENSION NOS 03/11/2018 JAZ, NALINI L REFRIGERATOR ROOM CLERK Ot 414.9 CHR ISCHEMIC HRT DIS NOS 03/11/2018 JAZ, NALINI L REFRIGERATOR ROOM CLERK Ot 437.9 CEREBROVASC DISEASE NOS 03/11/2018 CORYMA, NALINI L REFRIGERATOR ROOM CLERK Ot 272.4 HYPERLIPIDEMIA NEC/NOS 03/11/2018 CORYMA, NALINI L REFRIGERATOR ROOM CLERK Ot 401.9 HYPERTENSION NOS 03/11/2018 CORYMA, NALINI L REFRIGERATOR ROOM CLERK Ot 414.00 CORON ATHEROSCLER NOS TYPE VESSEL, NATIV 03/11/2018 JAZ NALINI L REFRIGERATOR ROOM CLERK Ot 437.9 CEREBROVASC DISEASE NOS 03/11/[address] MD Ot 174. 9 MALIGN NEOPL BREAST NOS 03/11/2018 XUN MD, ROSARIO-ARCELIA Ot 183. 0 MALIGN NEOPL OVARY 03/11/2018 FERNY NICHOLSON MD Ot 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 03/11/2018 FERNY NICHOLSON MD Ot V72.84 EXAM PRE-OPERATIVE NOS 03/11/[address] MD, Ot C50.919 MALIGNANT NEOPLASM OF UNSP SITE OF UNSPE 03/11/[address] MD, Ot C56. 9 MALIGNANT NEOPLASM OF UNSPECIFIED OVARY 03/11/[address] MD Ot T85.698A [facility] COMPL OF INTERNAL PROSTH DEV/GRFT, 03/11/2018 MARY ANGEL LARIOSCASTILLOLUCAS Ot Z01.818 ENCOUNTER FOR OTHER PREPROCEDURAL EXAMIN 03/11/[address] MD, Ot C56. 2 MALIGNANT NEOPLASM OF LEFT OVARY 03/11/[address] MD Ot Z85. 3 PERSONAL HISTORY OF MALIGNANT NEOPLASM O 03/11/[address] MD, Ot C50.919 MALIGNANT NEOPLASM OF UNSP SITE OF UNSPE 03/11/[address] MD, Ot C56. 9 MALIGNANT NEOPLASM OF UNSPECIFIED OVARY 03/11/[address] MD Ot Z12. 31 ENCNTR SCREEN MAMMOGRAM FOR MALIGNANT NE 03/11/[address] MD, Ot C56. 1 MALIGNANT NEOPLASM OF RIGHT OVARY 03/11/[address] MD Ot N18. 9 CHRONIC KIDNEY DISEASE, UNSPECIFIED 03/11/2018 ARIELLA PENALOZA DO Ot C55 MALIGNANT NEOPLASM OF UTERUS, PART UNSPE 03/11/2018 ARIELLA PENALOZA DO Ot C56. 2 MALIGNANT NEOPLASM OF LEFT OVARY 03/11/2018 ARIELLA PENALOZA DO Ot E78. 5 HYPERLIPIDEMIA, UNSPECIFIED 03/11/2018 ARIELLA PENALOZA DO Ot G47. 33 OBSTRUCTIVE SLEEP APNEA (ADULT) (PEDIATR 03/11/2018 ARIELLA PENALOZA DO Ot I12. 9 HYPERTENSIVE CHRONIC KIDNEY DISEASE W ST 03/11/2018 ARIELLA PENALOZA DO Ot I25. 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 2 CHRONIC KIDNEY DISEASE, STAGE 2 (MILD) 03/11/2018 ARIELLA PENALOZA DO Ot T82.514A BREAKDOWN (MECHANICAL) OF INFUSION PAT 03/11/2018 PENALOZA DO ARIELLA D Ot Z79. 02 TELLER VAULT (CURRENT) USE OF ANTITHROMBOTI 03/11/2018 PENALOZA DO ARIELLA D Ot Z79. 82 CUSTODIAL (CURRENT) USE OF ASPIRIN 03/11/2018 PENALOZA DO ARIELLA D Ot Z85. 3 PERSONAL HISTORY OF MALIGNANT NEOPLASM O 03/11/2018 PENALOZA DO ARIELLA D Ot C56. 9 MALIGNANT NEOPLASM OF UNSPECIFIED OVARY 03/11/2018 PENALOZA DO, ARIELLA D Ot E78. 5 HYPERLIPIDEMIA, UNSPECIFIED 03/11/2018 PENALOZA DO, ARIELLA D Ot G47. 33 OBSTRUCTIVE SLEEP APNEA (ADULT) (PEDIATR 03/11/2018 PENALOZA DO ARIELLA D Ot I12. 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 2 CHRONIC KIDNEY DISEASE, STAGE 2 (MILD) 03/11/2018 PENALOZA DOARIELLA D Ot T82.514D BREAKDOWN (MECHANICAL) OF INFUSION PAT 03/11/2018 PENALOZA DOARIELLA D Ot Z79. 02 CUSTODIAL (CURRENT) USE OF ANTITHROMBOTI 03/11/2018 ARIELLA PENALOZA DO D Ot Z79. 82 CUSTODIAL (CURRENT) USE OF ASPIRIN 03/11/2018 YASH PENALOZA DOTT D Ot Z85. 3 PERSONAL HISTORY OF MALIGNANT NEOPLASM O 03/11/[address] MD Ot C56. 1 MALIGNANT NEOPLASM OF RIGHT OVARY 03/11/[address] MD Ot Z12. 31 ENCNTR SCREEN MAMMOGRAM FOR MALIGNANT NE 03/11/2018 LAURA LIU FACC, MILKA FACP CCDS Ot E66.09 OTHER OBESITY DUE TO EXCESS CALORIES 03/11/2018 LAURA LIU FACC, MILKA FACP CCDS Ot E78.4 OTHER HYPERLIPIDEMIA 03/11/2018 LAURA LIU FACC, ALI FACP CCDS Ot G47.33 OBSTRUCTIVE SLEEP APNEA (ADULT) (PEDIATR 03/11/2018 LAURA LIU FACC, MILKA FACP CCDS Ot I12.9 HYPERTENSIVE CHRONIC KIDNEY DISEASE W ST 03/11/2018 LAURA MD FACC, ALI FACP CCDS Ot 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 03/11/2018 LAURA LIU FACC, ALI FACP CCDS Ot I65.23 OCCLUSION AND STENOSIS OF BILATERAL REAGN 03/11/2018 LAURA LIU FACC, ALI FACP CCDS Ot N18.2 CHRONIC KIDNEY DISEASE, STAGE 2 (MILD) 03/11/2018 LAURA LIU FACC, ALI FACP CCDS Ot R07.89 OTHER CHEST PAIN 03/11/2018 LAURA LIU FACC, ALI FACP CCDS Ot E66.09 OTHER OBESITY DUE TO EXCESS CALORIES 03/11/2018 LAURA MD FACC, ALI FACP CCDS Ot E78.4 OTHER HYPERLIPIDEMIA 03/11/2018 LAURA LIU FACC, ALI FACP CCDS Ot G47.33 OBSTRUCTIVE SLEEP APNEA (ADULT) (PEDIATR 03/11/2018 LAURA LIU FACC, ALI FACP CCDS Ot I12.9 HYPERTENSIVE CHRONIC KIDNEY DISEASE W ST 03/11/2018 LAURA LIU FACC, ALI FACP CCDS Ot 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 0 MAMMOGRAPHIC MICROCALCIFICATION FOUND ON 03/11/[address] MD Ot Z12. 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 1 MAMMOGRAPHIC CALCIFCN FOUND ON DIAGNOSTI 03/11/[address] MD Ot C56. 1 MALIGNANT NEOPLASM OF RIGHT OVARY 03/11/[address] MD Ot D05. 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 0 FATTY (CHANGE OF) LIVER, NOT ELSEWHERE C 03/11/[address] MD Ot R91. 8 OTHER NONSPECIFIC ABNORMAL FINDING OF KEVYN 03/11/[address] MD, Ot C56. 1 MALIGNANT NEOPLASM OF RIGHT OVARY 03/11/[address] MD Ot D05. 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 1 SOLITARY PULMONARY NODULE 03/11/2018 KATIA PARR MD, [...] MD, Ot 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 03/11/2018 KATIA PARR MD, Ot K21.0 GASTRO-ESOPHAGEAL REFLUX DISEASE WITH ES 03/11/2018 KATIA PARR MD, Ot K44.9 DIAPHRAGMATIC HERNIA WITHOUT OBSTRUCTION 03/11/2018 KATIA PARR MD, Ot N18.9 CHRONIC KIDNEY DISEASE, UNSPECIFIED 03/11/2018 KATIA PARR MD, Ot Z79.02 TELLER VAULT (CURRENT) USE OF ANTITHROMBOTI 03/11/2018 KATIA PARR MD, Ot Z79.82 CUSTODIAL (CURRENT) USE OF ASPIRIN 03/11/2018 KATIA PARR MD, Ot Z85.3 PERSONAL HISTORY OF MALIGNANT NEOPLASM O 03/11/2018 KATIA PARR MD, Ot Z92.21 PERSONAL HISTORY OF ANTINEOPLASTIC CHEMO 03/11/2018 KATIA PARR MD, Ot Z95.5 PRESENCE OF CORONARY ANGIOPLASTY IMPLANT 03/11/[address] MD, Ot C55 MALIGNANT NEOPLASM OF UTERUS, PART UNSPE 03/11/[address] MD, Ot C56. 2 MALIGNANT NEOPLASM OF LEFT OVARY 03/11/[address] MD, Ot C78. 5 SECONDARY MALIGNANT NEOPLASM OF LARGE IN 03/11/[address] MD, Ot C78. 6 SECONDARY MALIGNANT NEOPLASM OF RETROPER 03/11/[address] MD, Ot C79. 89 SECONDARY MALIGNANT NEOPLASM OF OTHER SP 03/11/[address] MD, Ot D50. 0 IRON DEFICIENCY ANEMIA SECONDARY TO BLOO 03/11/[address] MD, Ot D63. 1 ANEMIA IN CHRONIC KIDNEY DISEASE 03/11/[address] MD, Ot D64. 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 0 GASTRO-ESOPHAGEAL REFLUX DISEASE WITH ES 03/11/[address] MD, Ot K44. 9 DIAPHRAGMATIC HERNIA WITHOUT OBSTRUCTION 03/11/[address] MD, Ot N18. 9 CHRONIC KIDNEY DISEASE, UNSPECIFIED 03/11/[address] MD, Ot Z51. 11 ENCOUNTER FOR ANTINEOPLASTIC CHEMOTHERAP 03/11/[address] MD, Ot Z79. 02 TELLER VAULT (CURRENT) USE OF ANTITHROMBOTI 03/11/[address] MD, Ot Z79. 82 TELLER VAULT (CURRENT) USE OF ASPIRIN 03/11/[address] MD, Ot Z85. 3 PERSONAL HISTORY OF MALIGNANT NEOPLASM O 03/11/[address] MD, Ot Z92. 21 PERSONAL HISTORY OF ANTINEOPLASTIC CHEMO 03/11/[address] MD, Ot Z95. 5 PRESENCE OF CORONARY ANGIOPLASTY IMPLANT 03/11/2018 KATIA [...] MD, Ot 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 03/11/2018 KATIA PARR MD, Ot K21.0 GASTRO-ESOPHAGEAL REFLUX DISEASE WITH ES 03/11/2018 KATIA PARR MD, Ot K44.9 DIAPHRAGMATIC HERNIA WITHOUT OBSTRUCTION 03/11/2018 KATIA PARR MD, Ot N18.9 CHRONIC KIDNEY DISEASE, UNSPECIFIED 03/11/2018 KATIA PARR MD, Ot Z79.02 TELLER VAULT (CURRENT) USE OF ANTITHROMBOTI 03/11/2018 KATIA PARR MD Ot Z79.82 TELLER VAULT (CURRENT) USE OF ASPIRIN 03/11/2018 KATIA PARR MD Ot Z85.3 PERSONAL HISTORY OF MALIGNANT NEOPLASM O 03/11/2018 KATIA PARR MD Ot Z92.21 PERSONAL HISTORY OF ANTINEOPLASTIC CHEMO 03/11/2018 KATIA PARR MD Ot Z95.5 PRESENCE OF CORONARY ANGIOPLASTY IMPLANT 03/17/2018 Ot V10.3 HX O F BREAST MALIGNANCY 03/17/2018 Ot V76.11 SCR N MAMMO-HIGH RISK PT, MALIGNANT NEOPL 03/17/2018 Ot 183.0 GEMMA GN NEOPL OVARY 03/17/2018 Ot 786.09 RES PIRATORY ABNORM NEC 03/17/2018 Ot 786.09 RES PIRATORY ABNORM NEC 03/17/[address] MD Ot 183. 0 MALIGN NEOPL OVARY 03/17/2018 FERNY NICHOLSON MD Ot V72.84 EXAM PRE-OPERATIVE NOS 03/17/2018 FERNY NICHOLSON MD Ot V72.84 EXAM PRE-OPERATIVE NOS 03/17/2018 FERNY NICHOLSON MD Ot V72.84 EXAM PRE-OPERATIVE NOS 03/17/[address] MD Ot 721. 0 CERVICAL SPONDYLOSIS 03/17/[address] MD Ot V76. 12 OTH SCREEN MAMMO-MALIGN NEOPLASM OF JORGE LUIS 03/17/2018 FERNY NICHOLSON MD Ot V72.84 EXAM PRE-OPERATIVE NOS 03/17/2018 FERNY NICHOLSON MD Ot V72.84 EXAM PRE-OPERATIVE NOS 03/17/2018 FERNY NICHOLSON MD S Ot V72.84 EXAM PRE-OPERATIVE NOS 03/17/2018 ALFREDO CADENA Ot 585.3 CHRONIC KIDNEY DISEASE, STAGE III (MODER 03/17/2018 ALFREDO CADENA Ot 793.5 NOSP (ABN) FINDINGS ON RADIOLOGICAL OT 03/17/2018 FERNY NICHOLSON MD Ot 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 03/17/2018 FERNY NICHOLSON MD Ot V72.84 EXAM PRE-OPERATIVE NOS 03/17/[address] MD Ot 174. 9 MALIGN NEOPL BREAST NOS 03/17/[address] MD Ot V76. 11 SCRN MAMMO-HIGH RISK PT, MALIGNANT NEOPL 03/17/2018 DANA STER[address] MD Ot 183. 0 MALIGN NEOPL OVARY 03/17/2018 BAIMA, NALINI L REFRIGERATOR ROOM CLERK Ot 272.4 HYPERLIPIDEMIA NEC/NOS 03/17/2018 BAIMA, NALINI L REFRIGERATOR ROOM CLERK Ot 401.9 HYPERTENSION NOS 03/17/2018 BAIMA, NALINI L REFRIGERATOR ROOM CLERK Ot 414.9 CHR ISCHEMIC HRT DIS NOS 03/17/2018 BAIMA, NALINI L REFRIGERATOR ROOM CLERK Ot 437.9 CEREBROVASC DISEASE NOS 03/17/2018 BAIMA, NALINI L REFRIGERATOR ROOM CLERK Ot 272.4 HYPERLIPIDEMIA NEC/NOS 03/17/2018 BAIMA, NALINI L REFRIGERATOR ROOM CLERK Ot 401.9 HYPERTENSION NOS 03/17/2018 BAIMA, NALINI L REFRIGERATOR ROOM CLERK Ot 414.00 CORON ATHEROSCLER NOS TYPE VESSEL, NATIV 03/17/2018 BAIMA, NALINI L REFRIGERATOR ROOM CLERK Ot 437.9 CEREBROVASC DISEASE NOS 03/17/[address] MD Ot 174. 9 MALIGN NEOPL BREAST NOS 03/17/[address] MD Ot 183. 0 MALIGN NEOPL OVARY 03/17/2018 BHARAT LIU, FERNY S Ot 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 03/17/2018 BHARAT LIU FERNY S Ot V72.84 EXAM PRE-OPERATIVE NOS 03/17/[address] MD, Ot C50.919 MALIGNANT NEOPLASM OF UNSP SITE OF UNSPE 03/17/[address] MD, Ot C56. 9 MALIGNANT NEOPLASM OF UNSPECIFIED OVARY 03/17/[address] MD, Ot T85.698A [facility] COMPL OF INTERNAL PROSTH DEV/GRFT, 03/17/2018 TEODORO HERNANDEZ DO Ot Z01.818 ENCOUNTER FOR OTHER PREPROCEDURAL EXAMIN 03/17/[address] MD, Ot C56. 2 MALIGNANT NEOPLASM OF LEFT OVARY 03/17/[address] MD, Ot Z85. 3 PERSONAL HISTORY OF MALIGNANT NEOPLASM O 03/17/[address] MD, Ot C50.919 MALIGNANT NEOPLASM OF UNSP SITE OF UNSPE 03/17/[address] MD, Ot C56. 9 MALIGNANT NEOPLASM OF UNSPECIFIED OVARY 03/17/2018 JAD LIU, DANA Ot Z12. 31 ENCNTR SCREEN MAMMOGRAM FOR MALIGNANT NE 03/17/2018 JAD LIU, DANA Ot C56. 1 MALIGNANT NEOPLASM OF RIGHT OVARY 03/17/2018 JAD LIU, DANA Ot N18. 9 CHRONIC KIDNEY DISEASE, UNSPECIFIED 03/17/2018 PENALOZA DO, ARIELLA D Ot C55 MALIGNANT NEOPLASM OF UTERUS, PART UNSPE 03/17/2018 PENALOZA DO ARIELLA D Ot C56. 2 MALIGNANT NEOPLASM OF LEFT OVARY 03/17/2018 PENALOZA DO, ARIELAL D Ot E78. 5 HYPERLIPIDEMIA, UNSPECIFIED 03/17/2018 PENALOZA DO, ARIELLA D Ot G47. 33 OBSTRUCTIVE SLEEP APNEA (ADULT) (PEDIATR 03/17/2018 PENALOZA DO, ARIELLA D Ot I12. 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 2 CHRONIC KIDNEY DISEASE, STAGE 2 (MILD) 03/17/2018 PENALOZA DO, ARIELLA D Ot T82.514A BREAKDOWN (MECHANICAL) OF INFUSION PAT 03/17/2018 CA DOYASHTT D Ot Z79. 02 CUSTODIAL (CURRENT) USE OF ANTITHROMBOTI 03/17/2018 CA DO ARIELLA D Ot Z79. 82 TELLER VAULT (CURRENT) USE OF ASPIRIN 03/17/2018 PENALOZA DO ARIELLA D Ot Z85. 3 PERSONAL HISTORY OF MALIGNANT NEOPLASM O 03/17/2018 CA DO ARIELLA D Ot C56. 9 MALIGNANT NEOPLASM OF UNSPECIFIED OVARY 03/17/2018 PENALOZA DO, ARIELLA D Ot E78. 5 HYPERLIPIDEMIA, UNSPECIFIED 03/17/2018 PENALOZA DO, ARIELLA D Ot G47. 33 OBSTRUCTIVE SLEEP APNEA (ADULT) (PEDIATR 03/17/2018 PENALOZA DO, ARIELLA D Ot I12. 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 2 CHRONIC KIDNEY DISEASE, STAGE 2 (MILD) 03/17/2018 PENALOZA DO, ARIELLA D Ot T82.514D BREAKDOWN (MECHANICAL) OF INFUSION PAT 03/17/2018 ARIELLA PENALOZA DO Norm Ot Z79. 02 TELLER VAULT (CURRENT) USE OF ANTITHROMBOTI 03/17/2018 CA LARIOS ARIELLA D Ot Z79. 82 TELLER VAULT (CURRENT) USE OF ASPIRIN 03/17/2018 CA LARIOS ARIELLA Norm Ot Z85. 3 PERSONAL HISTORY OF MALIGNANT NEOPLASM O 03/17/[address] MD Ot C56. 1 MALIGNANT NEOPLASM OF RIGHT OVARY 03/17/[address] MD Ot Z12. 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 0 MAMMOGRAPHIC MICROCALCIFICATION FOUND ON 03/17/[address] MD Ot Z12. 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 KENNEL ASSISTANT-C Ot R80.9 PROTEINURIA, UNSPECIFIED 03/17/[address] MD, Ot R92. 1 MAMMOGRAPHIC CALCIFCN FOUND ON DIAGNOSTI 03/17/[address] MD, Ot C56. 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 0 FATTY (CHANGE OF) LIVER, NOT ELSEWHERE C 03/17/[address] MD, Ot R91. 8 OTHER NONSPECIFIC ABNORMAL FINDING OF KEVYN 03/17/[address] MD, Ot C56. 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 1 SOLITARY PULMONARY NODULE 03/17/2018 KATIA PARR MD, Ot C55 MALIGNANT NEOPLASM OF UTERUS, PART UNSPE 03/17/2018 KATIA PARR MD, Ot C56.2 MALIGNANT NEOPLASM OF LEFT OVARY 03/17/2018 KATIA PARR MD, Ot 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 03/17/2018 KATIA PARR MD, Ot 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 03/17/2018 KATIA PARR MD, Ot C79.89 SECONDARY MALIGNANT NEOPLASM OF OTHER SP 03/17/2018 KATIA PARR MD, Ot D50.0 IRON DEFICIENCY ANEMIA SECONDARY TO BLOO 03/17/2018 KATIA PARR MD, Ot D63.1 ANEMIA IN CHRONIC KIDNEY DISEASE 03/17/2018 KATIA PARR MD, Ot D64.81 ANEMIA DUE TO ANTINEOPLASTIC CHEMOTHERAP 03/17/2018 KATIA PARR MD, Ot 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 03/17/2018 KATIA PARR MD, Ot K21.0 GASTRO-ESOPHAGEAL REFLUX DISEASE WITH ES 03/17/2018 KATIA PARR MD, Ot K44.9 DIAPHRAGMATIC HERNIA WITHOUT OBSTRUCTION 03/17/2018 KATIA PARR MD, Ot N18.9 CHRONIC KIDNEY DISEASE, UNSPECIFIED 03/17/2018 KATIA PARR MD, Ot Z79.02 TELLER VAULT (CURRENT) USE OF ANTITHROMBOTI 03/17/2018 KATIA PARR MD, Ot Z79.82 CUSTODIAL (CURRENT) USE OF ASPIRIN 03/17/2018 KESHAV LIU, KATIA Ot Z85.3 PERSONAL HISTORY OF MALIGNANT NEOPLASM O 03/17/2018 KATIA PARR MD Ot Z92.21 PERSONAL HISTORY OF ANTINEOPLASTIC CHEMO 03/17/2018 KATIA PARR MD Ot Z95.5 PRESENCE OF CORONARY ANGIOPLASTY IMPLANT 03/28/2018 Ot V10.3 HX O F BREAST MALIGNANCY 03/28/2018 Ot V76.11 SCR N MAMMO-HIGH RISK PT, MALIGNANT NEOPL 03/28/2018 Ot 183.0 GEMMA GN NEOPL OVARY 03/28/2018 Ot 786.09 RES PIRATORY ABNORM NEC 03/28/2018 Ot 786.09 RES PIRATORY ABNORM NEC 03/28/[address] MD Ot 183. 0 MALIGN NEOPL OVARY 03/28/2018 BHARAT LIU, FERNY Gordon Ot V72.84 EXAM PRE-OPERATIVE NOS 03/28/2018 FERNY NICHOLSON MD Ot V72.84 EXAM PRE-OPERATIVE NOS 03/28/2018 FERNY NICHOLSON MD Ot V72.84 EXAM PRE-OPERATIVE NOS 03/28/[address] MD Ot 721. 0 CERVICAL SPONDYLOSIS 03/28/[address] MD Ot V76. 12 OTH SCREEN MAMMO-MALIGN NEOPLASM OF JORGE LUIS [...] PRE-OPERATIVE NOS 03/28/[address] MD Ot 174. 9 MALIGN NEOPL BREAST NOS 03/28/[address] MD Ot V76. 11 SCRN MAMMO-HIGH RISK PT, MALIGNANT NEOPL 03/28/[address] MD Ot 183. 0 MALIGN NEOPL OVARY 03/28/2018 BAIMA, NALINI L REFRIGERATOR ROOM CLERK Ot 272.4 HYPERLIPIDEMIA NEC/NOS 03/28/2018 BAIMA, NALINI L REFRIGERATOR ROOM CLERK Ot 401.9 HYPERTENSION NOS 03/28/2018 BAIMA, NALINI L REFRIGERATOR ROOM CLERK Ot 414.9 CHR ISCHEMIC HRT DIS NOS 03/28/2018 BAIMA, NALINI L REFRIGERATOR ROOM CLERK Ot 437.9 CEREBROVASC DISEASE NOS 03/28/2018 BAIMA, NALINI L REFRIGERATOR ROOM CLERK Ot 272.4 HYPERLIPIDEMIA NEC/NOS 03/28/2018 BAIMA, NALINI L REFRIGERATOR ROOM CLERK Ot 401.9 HYPERTENSION NOS 03/28/2018 BAIMA, NALINI L REFRIGERATOR ROOM CLERK Ot 414.00 CORON ATHEROSCLER NOS TYPE VESSEL, NATIV 03/28/2018 BAIMA, NALINI L REFRIGERATOR ROOM CLERK Ot 437.9 CEREBROVASC DISEASE NOS 03/28/[address] MD Ot 174. 9 MALIGN NEOPL BREAST NOS 03/28/[address] MD Ot 183. 0 MALIGN NEOPL OVARY 03/28/2018 FERNY NICHOLSON MD S Ot 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 03/28/2018 FERNY NICHOLSON MD S Ot V72.84 EXAM PRE-OPERATIVE NOS 03/28/[address] MD, Ot C50.919 MALIGNANT NEOPLASM OF UNSP SITE OF UNSPE 03/28/[address] MD, Ot C56. 9 MALIGNANT NEOPLASM OF UNSPECIFIED OVARY 03/28/[address] MD, Ot T85.698A [facility] COMPL OF INTERNAL PROSTH DEV/GRFT, 03/28/2018 TEODORO HERNANDEZ DO Ot Z01.818 ENCOUNTER FOR OTHER PREPROCEDURAL EXAMIN 03/28/[address] MD, Ot C56. 2 MALIGNANT NEOPLASM OF LEFT OVARY 03/28/[address] MD Ot Z85. 3 PERSONAL HISTORY OF MALIGNANT NEOPLASM O 03/28/[address] MD, Ot C50.919 MALIGNANT NEOPLASM OF UNSP SITE OF UNSPE 03/28/[address] MD, Ot C56. 9 MALIGNANT NEOPLASM OF UNSPECIFIED OVARY 03/28/[address] MD, Ot Z12. 31 ENCNTR SCREEN MAMMOGRAM FOR MALIGNANT NE 03/28/2018 XUN MD, ROSARIO-ARCELIA Ot C56. 1 MALIGNANT NEOPLASM OF RIGHT OVARY 03/28/2018 JAD LIU, DANA Ot N18. 9 CHRONIC KIDNEY DISEASE, UNSPECIFIED 03/28/2018 PENALOZA DO, ARIELLA D Ot C55 MALIGNANT NEOPLASM OF UTERUS, PART UNSPE 03/28/2018 PENALOZA DO, ARIELLA D Ot C56. 2 MALIGNANT NEOPLASM OF LEFT OVARY 03/28/2018 PENALOZA DO, ARIELLA D Ot E78. 5 HYPERLIPIDEMIA, UNSPECIFIED 03/28/2018 PENALOZA DO, ARIELLA D Ot G47. 33 OBSTRUCTIVE SLEEP APNEA (ADULT) (PEDIATR 03/28/2018 PENALOZA DO, ARIELLA D Ot I12. 9 HYPERTENSIVE CHRONIC KIDNEY DISEASE W ST 03/28/2018 PENALOZA DO, ARIELLA D Ot I25. 10 ATHSCL HEART DISEASE OF BLACKFEET CORONARY 03/28/2018 PENALOZA DO, ARIELLA D Ot N18. 2 CHRONIC KIDNEY DISEASE, STAGE 2 (MILD) 03/28/2018 PENALOZA DO, ARIELLA D Ot T82.514A BREAKDOWN (MECHANICAL) OF INFUSION PAT 03/28/2018 PENALOZA DO, ARIELLA D Ot Z79. 02 TELLER VAULT (CURRENT) USE OF ANTITHROMBOTI 03/28/2018 PENALOZA DO, ARIELLA D Ot Z79. 82 TELLER VAULT (CURRENT) USE OF ASPIRIN 03/28/2018 CA DO, ARIELLA D Ot Z85. 3 PERSONAL HISTORY OF MALIGNANT NEOPLASM O 03/28/2018 PENALOZA DO, ARIELLA D Ot C56. 9 MALIGNANT NEOPLASM OF UNSPECIFIED OVARY 03/28/2018 PENALOZA DO, ARIELLA D Ot E78. 5 HYPERLIPIDEMIA, UNSPECIFIED 03/28/2018 PENALOZA DO, ARIELLA D Ot G47. 33 OBSTRUCTIVE SLEEP APNEA (ADULT) (PEDIATR 03/28/2018 PENALOZA DO, ARIELLA D Ot I12. 9 HYPERTENSIVE CHRONIC KIDNEY DISEASE W ST 03/28/2018 PENALOZA DO, ARIELLA D Ot I25. 10 ATHSCL HEART DISEASE OF BLACKFEET CORONARY 03/28/2018 PENALOZA DO, ARIELLA D Ot N18. 2 CHRONIC KIDNEY DISEASE, STAGE 2 (MILD) 03/28/2018 PENALOZA DO, ARIELLA D Ot T82.514D BREAKDOWN (MECHANICAL) OF INFUSION PAT 03/28/2018 PENALOZA DO, ARIELLA D Ot Z79. 02 CUSTODIAL (CURRENT) USE OF ANTITHROMBOTI 03/28/2018 ARIELLA PENALOZA DO Ot Z79. 82 TELLER VAULT (CURRENT) USE OF ASPIRIN 03/28/2018 ARIELLA PENALOZA DO Ot Z85. 3 PERSONAL HISTORY OF MALIGNANT NEOPLASM O 03/28/2018 JAD LIU, DANA Ot C56. 1 MALIGNANT NEOPLASM OF RIGHT OVARY 03/28/[address] MD Ot Z12. 31 ENCNTR SCREEN MAMMOGRAM FOR MALIGNANT NE 03/28/2018 LAURA LIU FACC, ALI FACP CCDS Ot E66.09 OTHER OBESITY DUE TO EXCESS CALORIES 03/28/2018 LAURA NYEC, ALI FACP CCDS Ot E78.4 OTHER HYPERLIPIDEMIA 03/28/2018 LAURA LIU FACC, ALI FACP CCDS Ot G47.33 OBSTRUCTIVE SLEEP APNEA (ADULT) (PEDIATR 03/28/2018 LAURA LIU FACC, ALI FACP CCDS Ot I12.9 HYPERTENSIVE CHRONIC KIDNEY DISEASE W ST 03/28/2018 LAURA NYEC, ALI FACP CCDS Ot 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 03/28/2018 LAURA NYEC, ALI FACP CCDS Ot I65.23 OCCLUSION AND STENOSIS OF BILATERAL REGAN 03/28/2018 LAURA LIU FACC, ALI FACP CCDS Ot N18.2 CHRONIC KIDNEY DISEASE, STAGE 2 (MILD) 03/28/2018 LAURA LIU FACC, ALI FACP CCDS Ot R07.89 OTHER CHEST PAIN 03/28/2018 LAURA LIU FACC, ALI FACP CCDS Ot E66.09 OTHER OBESITY DUE TO EXCESS CALORIES 03/28/2018 LAURA NYEC, ALI FACP CCDS Ot E78.4 OTHER HYPERLIPIDEMIA 03/28/2018 LAURA NYEC, ALI FACP CCDS Ot G47.33 OBSTRUCTIVE SLEEP APNEA (ADULT) (PEDIATR 03/28/2018 LAURA LIU FACC, ALI FACP CCDS Ot I12.9 HYPERTENSIVE CHRONIC KIDNEY DISEASE W ST 03/28/2018 LAURA NYEC, ALI FACP CCDS Ot 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 03/28/2018 LAURA NYEC, ALI FACP CCDS Ot I65.23 OCCLUSION AND STENOSIS OF BILATERAL REGAN 03/28/2018 LAURA NYEC, ALI FACP CCDS Ot N18.2 CHRONIC KIDNEY DISEASE, STAGE 2 (MILD) 03/28/2018 LAURA LIU FAC, MILKA FACP CCDS Ot R07.89 OTHER CHEST PAIN 03/28/2018 ALFREDO CADENA Ot M85.852 OTH DISRD OF BONE DENSITY AND STRUCTURE, 03/28/2018 ALFREDO CADENA Ot M85.88 OTH DISRD OF BONE DENSITY AND STRUCTURE, 03/28/2018 ALFREDO CADENA Ot Z13.820 ENCOUNTER FOR SCREENING FOR OSTEOPOROSIS 03/28/[address] MD Ot R92. 0 MAMMOGRAPHIC MICROCALCIFICATION FOUND ON 03/28/[address] MD Ot Z12. 31 ENCNTR SCREEN MAMMOGRAM FOR MALIGNANT NE 03/28/2018 CRISTY SILVER NP-C Ot D63.1 ANEMIA IN CHRONIC KIDNEY DISEASE 03/28/2018 CRISTY SILVER KENNEL ASSISTANT-C Ot E46 UNSPECIFIED PROTEIN-CALORIE MALNUTRITION 03/28/2018 CRISTY SILVER KENNEL ASSISTANT-C Ot E55.9 VITAMIN D DEFICIENCY, UNSPECIFIED 03/28/2018 CRISTY SILVER KENNEL ASSISTANT-C Ot E78.5 HYPERLIPIDEMIA, UNSPECIFIED 03/28/2018 CRISTY SILVER KENNEL ASSISTANT-C Ot E83.4 2 HYPOMAGNESEMIA 03/28/2018 CRISTY SILVER KENNEL ASSISTANT-C Ot E87.2 ACIDOSIS 03/28/2018 CRISTY SILVER KENNEL ASSISTANT-C Ot E87.3 ALKALOSIS 03/28/2018 CRISTY SILVER KENNEL ASSISTANT-C Ot I13.1 0 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 1 MAMMOGRAPHIC CALCIFCN FOUND ON DIAGNOSTI 03/28/[address] MD, Ot C56. 1 MALIGNANT NEOPLASM OF RIGHT OVARY 03/28/[address] MD, Ot D05. 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 0 FATTY (CHANGE OF) LIVER, NOT ELSEWHERE C 03/28/[address] MD Ot R91. 8 OTHER NONSPECIFIC ABNORMAL FINDING OF KEVYN 03/28/[address] MD, Ot C56. 1 MALIGNANT NEOPLASM OF RIGHT OVARY 03/28/[address] MD, Ot D05. 11 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 03/28/[address] MD, Ot R91. 1 SOLITARY PULMONARY NODULE 03/28/2018 KATIA PARR MD, [...] D64.81 ANEMIA DUE TO ANTINEOPLASTIC CHEMOTHERAP 03/28/2018 KATIA PARR MD, Ot 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 03/28/2018 KATIA PARR MD, Ot K21.0 GASTRO-ESOPHAGEAL REFLUX DISEASE WITH ES 03/28/2018 KATIA PARR MD, Ot K44.9 DIAPHRAGMATIC HERNIA WITHOUT OBSTRUCTION 03/28/2018 KATIA PARR MD, Ot N18.9 CHRONIC KIDNEY DISEASE, UNSPECIFIED 03/28/2018 KATIA PARR MD, Ot Z79.02 CUSTODIAL (CURRENT) USE OF ANTITHROMBOTI 03/28/2018 KATIA PARR MD, Ot Z79.82 CUSTODIAL (CURRENT) USE OF ASPIRIN 03/28/2018 KATIA PARR MD, Ot Z85.3 PERSONAL HISTORY [...] MD Ot 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 03/31/2018 KATIA PARR MD Ot K21.0 GASTRO-ESOPHAGEAL REFLUX DISEASE WITH ES 03/31/2018 KATIA PARR MD Ot K44.9 DIAPHRAGMATIC HERNIA WITHOUT OBSTRUCTION 03/31/2018 KATIA PARR MD Ot N18.9 CHRONIC KIDNEY DISEASE, UNSPECIFIED 03/31/2018 KATIA PARR MD Ot Z79.02 TELLER VAULT (CURRENT) USE OF ANTITHROMBOTI 03/31/2018 KATIA PARR MD Ot Z79.82 CUSTODIAL (CURRENT) USE OF ASPIRIN 03/31/2018 KATIA PARR [...] NEOPLASM OF OTHER SP 03/31/2018 KATIA PARR MD, Ot D50.0 IRON DEFICIENCY ANEMIA SECONDARY TO BLOO 03/31/2018 KATIA PARR MD Ot D63.1 ANEMIA IN CHRONIC KIDNEY DISEASE 03/31/2018 KATIA PARR MD, Ot D64.81 ANEMIA DUE TO ANTINEOPLASTIC CHEMOTHERAP 03/31/2018 KATIA PARR MD, Ot 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 03/31/2018 KATIA PARR MD, Ot K21.0 GASTRO-ESOPHAGEAL REFLUX DISEASE WITH ES 03/31/2018 KATIA PARR MD, Ot K44.9 DIAPHRAGMATIC HERNIA WITHOUT OBSTRUCTION 03/31/2018 KATIA PARR MD, Ot N18.9 CHRONIC KIDNEY DISEASE, UNSPECIFIED 03/31/2018 KATIA PARR MD, Ot Z51.11 ENCOUNTER FOR ANTINEOPLASTIC CHEMOTHERAP 03/31/2018 KATIA PARR MD, Ot Z79.02 CUSTODIAL (CURRENT) USE OF ANTITHROMBOTI 03/31/2018 KATIA PARR MD, Ot Z79.82 CUSTODIAL (CURRENT) USE OF ASPIRIN 03/31/2018 KATIA PARR MD, Ot Z85.3 PERSONAL HISTORY OF MALIGNANT NEOPLASM O 03/31/2018 KATIA PARR MD, Ot Z92.21 PERSONAL HISTORY OF ANTINEOPLASTIC CHEMO 03/31/2018 KATIA PARR MD, Ot Z95.5 PRESENCE OF CORONARY ANGIOPLASTY IMPLANT 04/01/[address] MD Ot C55 MALIGNANT NEOPLASM OF UTERUS, PART UNSPE 04/01/[address] MD, Ot C56. 2 MALIGNANT NEOPLASM OF LEFT OVARY 04/01/[address] MD, Ot C78. 5 SECONDARY MALIGNANT NEOPLASM OF LARGE IN 04/01/[address] MD, Ot C78. 6 SECONDARY MALIGNANT NEOPLASM OF RETROPER 04/01/[address] MD, Ot C79. 89 SECONDARY MALIGNANT NEOPLASM OF OTHER SP 04/01/[address] MD, Ot D50. 0 IRON DEFICIENCY ANEMIA SECONDARY TO BLOO 04/01/[address] MD, Ot D63. 1 ANEMIA IN CHRONIC KIDNEY DISEASE 04/01/[address] MD, Ot D64. 81 ANEMIA DUE TO ANTINEOPLASTIC CHEMOTHERAP 04/01/[address] MD, Ot I25. 10 ATHSCL HEART DISEASE OF BLACKFEET CORONARY 04/01/[address] MD, Ot K21. 0 GASTRO-ESOPHAGEAL REFLUX DISEASE WITH ES 04/01/[address] MD, Ot K44. 9 DIAPHRAGMATIC HERNIA WITHOUT OBSTRUCTION 04/01/[address] MD, Ot N18. 9 CHRONIC KIDNEY DISEASE, UNSPECIFIED 04/01/[address] MD, Ot Z79. 02 CUSTODIAL (CURRENT) USE OF ANTITHROMBOTI 04/01/[address] MD, Ot Z79. 82 CUSTODIAL (CURRENT) USE OF ASPIRIN 04/01/[address] MD, Ot Z85. 3 PERSONAL HISTORY OF MALIGNANT NEOPLASM O 04/01/[address] MD, Ot Z92. 21 PERSONAL HISTORY OF ANTINEOPLASTIC CHEMO 04/01/[address] MD, Ot Z95. 5 PRESENCE OF CORONARY ANGIOPLASTY IMPLANT 04/03/2018 NEWCRISTY KENNEL ASSISTANT-C Ot D63.1 ANEMIA IN CHRONIC KIDNEY DISEASE 04/03/2018 CRISTY SILVER KENNEL ASSISTANT-C Ot E46 UNSPECIFIED PROTEIN-CALORIE MALNUTRITION 04/03/2018 CRISTY SILVER KENNEL ASSISTANT-C Ot E55.9 VITAMIN D DEFICIENCY, UNSPECIFIED 04/03/2018 CRISTY SILVER KENNEL ASSISTANT-C Ot E66.9 OBESITY, UNSPECIFIED 04/03/2018 CRISTY SILVER KENNEL ASSISTANT-C Ot E78.5 HYPERLIPIDEMIA, UNSPECIFIED 04/03/2018 CRISTY SILVER KENNEL ASSISTANT-C Ot E83.4 2 HYPOMAGNESEMIA 04/03/2018 CRISTY SILVER KENNEL ASSISTANT-C Ot E87.2 ACIDOSIS 04/03/2018 NEWCRISTY KENNEL ASSISTANT-C Ot E87.3 ALKALOSIS 04/03/2018 CRISTY SILVER KENNEL ASSISTANT-C Ot I12.9 HYPERTENSIVE CHRONIC KIDNEY DISEASE W ST 04/03/2018 NEWCRISTY KENNEL ASSISTANT-C Ot I70.1 ATHEROSCLEROSIS OF RENAL ARTERY 04/03/2018 NEWCRISTY KENNEL ASSISTANT-C Ot N18.4 CHRONIC KIDNEY DISEASE, STAGE 4 (SEVERE) 04/03/2018 CRISTY SILVER KENNEL ASSISTANT-C Ot N25.8 1 SECONDARY HYPERPARATHYROIDISM OF RENAL O 04/03/2018 CRISTY SILVER KENNEL ASSISTANT-C Ot R73.0 1 IMPAIRED FASTING GLUCOSE 04/03/2018 CRISTY SILVER KENNEL ASSISTANT-C Ot R80.9 PROTEINURIA, UNSPECIFIED 04/21/[address] MD, Ot C55 MALIGNANT NEOPLASM OF UTERUS, PART UNSPE 04/21/[address] MD, Ot C56. 2 MALIGNANT NEOPLASM OF LEFT OVARY 04/21/[address] MD, Ot C78. 5 SECONDARY MALIGNANT NEOPLASM OF LARGE IN 04/21/[address] MD, Ot C78. 6 SECONDARY MALIGNANT NEOPLASM OF RETROPER 04/21/[address] MD, Ot C79. 89 SECONDARY MALIGNANT NEOPLASM OF OTHER SP 04/21/[address] MD, Ot D50. 0 IRON DEFICIENCY ANEMIA SECONDARY TO BLOO 04/21/[address] MD, Ot D63. 1 ANEMIA IN CHRONIC KIDNEY DISEASE 04/21/[address] MD, Ot D64. 81 ANEMIA DUE TO ANTINEOPLASTIC CHEMOTHERAP 04/21/[address] MD, Ot I25. 10 ATHSCL HEART DISEASE OF BLACKFEET CORONARY 04/21/[address] MD, Ot K21. 0 GASTRO-ESOPHAGEAL REFLUX DISEASE WITH ES 04/21/[address] MD, Ot K44. 9 DIAPHRAGMATIC HERNIA WITHOUT OBSTRUCTION 04/21/[address] MD, Ot N18. 9 CHRONIC KIDNEY DISEASE, UNSPECIFIED 04/21/[address] MD, Ot Z79. 02 TELLER VAULT (CURRENT) USE OF ANTITHROMBOTI 04/21/[address] MD, Ot Z79. 82 CUSTODIAL (CURRENT) USE OF ASPIRIN 04/21/[address] MD, Ot Z85. 3 PERSONAL HISTORY OF MALIGNANT NEOPLASM O 04/21/[address] MD, Ot Z92. 21 PERSONAL HISTORY OF ANTINEOPLASTIC CHEMO 04/21/[address] MD, Ot Z95. 5 PRESENCE OF CORONARY ANGIOPLASTY IMPLANT 05/06/2018 KATIA PARR MD, Ot C54.1 MALIGNANT NEOPLASM OF ENDOMETRIUM 05/06/2018 KATIA PARR MD, Ot C56.1 MALIGNANT NEOPLASM OF RIGHT OVARY 05/06/2018 KATIA PARR MD, Ot D05.11 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 05/06/2018 KATIA PARR MD Ot K80.20 CALCULUS OF GALLBLADDER W/O CHOLECYSTITI 05/06/2018 KESHAV MD, MONTALVO Ot N32.89 OTHER SPECIFIED DISORDERS OF BLADDER 05/09/2018 KATIA PARR MD, Ot C54.1 MALIGNANT NEOPLASM OF ENDOMETRIUM 05/09/2018 KATIA PARR MD, Ot C56.1 MALIGNANT NEOPLASM OF RIGHT OVARY 05/09/2018 KATIA PARR MD, Ot D05.11 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 05/09/2018 KATIA PARR MD Ot K80.20 CALCULUS OF GALLBLADDER W/O CHOLECYSTITI 05/09/2018 KATIA PARR MD, Ot N32.89 OTHER SPECIFIED DISORDERS OF BLADDER 05/12/2018 KATIA PARR MD Ot C55 MALIGNANT NEOPLASM OF UTERUS, PART UNSPE 05/12/2018 KATIA PARR MD, Ot C56.2 MALIGNANT NEOPLASM OF LEFT OVARY 05/12/2018 KATIA PARR MD, Ot 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 05/12/2018 KATIA PARR MD, Ot 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 05/12/2018 KATIA PARR MD, Ot C79.89 SECONDARY MALIGNANT NEOPLASM OF OTHER SP 05/12/2018 KATIA PARR MD Ot D50.0 IRON DEFICIENCY ANEMIA SECONDARY TO BLOO 05/12/2018 KATIA PARR MD Ot D63.1 ANEMIA IN CHRONIC KIDNEY DISEASE 05/12/2018 KATIA PARR MD Ot D64.81 ANEMIA DUE TO ANTINEOPLASTIC CHEMOTHERAP 05/12/2018 KATIA PARR MD, Ot 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 05/12/2018 KATIA PARR MD, Ot K21.0 GASTRO-ESOPHAGEAL REFLUX DISEASE WITH ES 05/12/2018 KATIA PARR MD Ot K44.9 DIAPHRAGMATIC HERNIA WITHOUT OBSTRUCTION 05/12/2018 KATIA PARR MD, Ot N18.9 CHRONIC KIDNEY DISEASE, UNSPECIFIED 05/12/2018 KATIA PARR MD, Ot Z51.11 ENCOUNTER FOR ANTINEOPLASTIC CHEMOTHERAP 05/12/2018 KATIA PARR MD, Ot Z79.02 TELLER VAULT (CURRENT) USE OF ANTITHROMBOTI 05/12/2018 KATIA PARR MD, Ot Z79.82 CUSTODIAL (CURRENT) USE OF ASPIRIN 05/12/2018 KATIA PARR MD, Ot Z85.3 PERSONAL HISTORY OF MALIGNANT NEOPLASM O 05/12/2018 KATIA PARR MD, Ot Z92.21 PERSONAL HISTORY OF ANTINEOPLASTIC CHEMO 05/12/2018 KATIA PARR MD Ot Z95.5 PRESENCE OF CORONARY ANGIOPLASTY IMPLANT 05/12/2018 KATIA PARR MD, Ot C55 MALIGNANT NEOPLASM OF UTERUS, PART UNSPE 05/12/2018 KATIA PARR MD, Ot C56.2 MALIGNANT NEOPLASM OF LEFT OVARY 05/12/2018 KATIA PARR MD, Ot 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 05/12/2018 KATIA PARR MD, Ot 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 05/12/2018 KATIA PARR MD, Ot C79.89 SECONDARY MALIGNANT NEOPLASM OF OTHER SP 05/12/2018 KATIA PARR MD, Ot D50.0 IRON DEFICIENCY ANEMIA SECONDARY TO BLOO 05/12/2018 KATIA PARR MD, Ot D63.1 ANEMIA IN CHRONIC KIDNEY DISEASE 05/12/2018 KATIA APRR MD, Ot D64.81 ANEMIA DUE TO ANTINEOPLASTIC CHEMOTHERAP 05/12/2018 KATIA PARR MD, Ot 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 05/12/2018 KATIA PARR MD, Ot K21.0 GASTRO-ESOPHAGEAL REFLUX DISEASE WITH ES 05/12/2018 KATIA PARR MD, Ot K44.9 DIAPHRAGMATIC HERNIA WITHOUT OBSTRUCTION 05/12/2018 KATIA PARR MD, Ot N18.9 CHRONIC KIDNEY DISEASE, UNSPECIFIED 05/12/2018 KATIA PARR MD, Ot Z51.11 ENCOUNTER FOR ANTINEOPLASTIC CHEMOTHERAP 05/12/2018 KATIA PARR MD Ot Z79.02 TELLER VAULT (CURRENT) USE OF ANTITHROMBOTI 05/12/2018 KATIA PARR MD, Ot Z79.82 CUSTODIAL (CURRENT) USE OF ASPIRIN 05/12/2018 KATIA PARR MD, Ot Z85.3 PERSONAL HISTORY OF MALIGNANT NEOPLASM O 05/12/2018 KATIA PARR MD, Ot Z92.21 PERSONAL HISTORY OF ANTINEOPLASTIC CHEMO 05/12/2018 KATIA PARR MD Ot Z95.5 PRESENCE OF CORONARY ANGIOPLASTY IMPLANT 05/19/2018 KATIA PARR MD, Ot C54.1 MALIGNANT NEOPLASM OF ENDOMETRIUM 05/19/2018 KATIA PARR MD, Ot C56.1 MALIGNANT NEOPLASM OF RIGHT OVARY 05/19/2018 KATIA PARR MD, Ot D05.11 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 05/19/2018 KATIA PARR MD Ot K80.20 CALCULUS OF GALLBLADDER W/O CHOLECYSTITI 05/19/2018 KATIA PARR MD Ot N32.89 OTHER SPECIFIED DISORDERS OF BLADDER 05/31/2018 KATIA PARR MD, Ot C54.1 MALIGNANT NEOPLASM OF ENDOMETRIUM 05/31/2018 [...] PART UNSPE 06/07/[address] MD, Ot C56. 2 MALIGNANT NEOPLASM OF LEFT OVARY 06/07/[address] MD, Ot C78. 5 SECONDARY MALIGNANT NEOPLASM OF LARGE IN 06/07/[address] MD, Ot C78. 6 SECONDARY MALIGNANT NEOPLASM OF RETROPER 06/07/[address] MD, Ot C79. 89 SECONDARY MALIGNANT NEOPLASM OF OTHER SP 06/07/[address] MD, Ot D50. 0 IRON DEFICIENCY ANEMIA SECONDARY TO BLOO 06/07/[address] MD, Ot D63. 1 ANEMIA IN CHRONIC KIDNEY DISEASE 06/07/[address] MD, Ot D64. 81 ANEMIA DUE TO ANTINEOPLASTIC CHEMOTHERAP 06/07/[address] MD, Ot I25. 10 ATHSCL HEART DISEASE OF BLACKFEET CORONARY 06/07/[address] MD, Ot K21. 0 GASTRO-ESOPHAGEAL REFLUX DISEASE WITH ES 06/07/[address] MD, Ot K44. 9 DIAPHRAGMATIC HERNIA WITHOUT OBSTRUCTION 06/07/[address] MD, Ot N18. 9 CHRONIC KIDNEY DISEASE, UNSPECIFIED 06/07/[address] MD, Ot Z51. 11 ENCOUNTER FOR ANTINEOPLASTIC CHEMOTHERAP 06/07/[address] MD, Ot Z79. 02 CUSTODIAL (CURRENT) USE OF ANTITHROMBOTI 06/07/[address] MD, Ot Z79. 82 TELLER [place] (CURRENT) USE OF ASPIRIN 06/07/2018 DANA STERET MD, Ot Z85. 3 PERSONAL HISTORY OF MALIGNANT NEOPLASM O 06/07/[address] MD, Ot Z92. 21 PERSONAL HISTORY OF ANTINEOPLASTIC CHEMO 06/07/[address] MD, Ot Z95. 5 PRESENCE OF CORONARY ANGIOPLASTY IMPLANT 06/15/[address] MD, Ot C55 MALIGNANT NEOPLASM OF UTERUS, PART UNSPE 06/15/[address] MD, Ot C56. 2 MALIGNANT NEOPLASM OF LEFT OVARY 06/15/[address] MD, Ot C78. 5 SECONDARY MALIGNANT NEOPLASM OF LARGE IN 06/15/[address] MD, Ot C78. 6 SECONDARY MALIGNANT NEOPLASM OF RETROPER 06/15/[address] MD, Ot C79. 89 SECONDARY MALIGNANT NEOPLASM OF OTHER SP 06/15/[address] MD, Ot D50. 0 IRON DEFICIENCY ANEMIA SECONDARY TO BLOO 06/15/[address] MD, Ot D63. 1 ANEMIA IN CHRONIC KIDNEY DISEASE 06/15/[address] MD, Ot D64. 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 0 GASTRO-ESOPHAGEAL REFLUX DISEASE WITH ES 06/15/[address] MD, Ot K44. 9 DIAPHRAGMATIC HERNIA WITHOUT OBSTRUCTION 06/15/[address] MD, Ot N18. 9 CHRONIC KIDNEY DISEASE, UNSPECIFIED 06/15/[address] MD, Ot Z79. 02 CUSTODIAL (CURRENT) USE OF ANTITHROMBOTI 06/15/[address] MD, Ot Z79. 82 TELLER [place] (CURRENT) USE OF ASPIRIN 06/15/[address] MD, Ot Z85. 3 PERSONAL HISTORY OF MALIGNANT NEOPLASM O 06/15/[address] MD, Ot Z92. 21 PERSONAL HISTORY OF ANTINEOPLASTIC CHEMO 06/15/[address] MD, Ot Z95. 5 PRESENCE OF CORONARY ANGIOPLASTY IMPLANT 06/16/[address] MD, Ot C55 MALIGNANT NEOPLASM OF UTERUS, PART UNSPE 06/16/[address] MD, Ot C56. 2 MALIGNANT NEOPLASM OF LEFT OVARY 06/16/[address] MD, Ot C78. 5 SECONDARY MALIGNANT NEOPLASM OF LARGE IN 06/16/2018 XUN MD, ROSARIO-ARCELIA Ot C78. 6 SECONDARY MALIGNANT NEOPLASM OF RETROPER 06/16/[address] MD, Ot C79. 89 SECONDARY MALIGNANT NEOPLASM OF OTHER SP 06/16/[address] MD, Ot D50. 0 IRON DEFICIENCY ANEMIA SECONDARY TO BLOO 06/16/[address] MD, Ot D63. 1 ANEMIA IN CHRONIC KIDNEY DISEASE 06/16/[address] MD, Ot D64. 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 0 GASTRO-ESOPHAGEAL REFLUX DISEASE WITH ES 06/16/[address] MD, Ot K44. 9 DIAPHRAGMATIC HERNIA WITHOUT OBSTRUCTION 06/16/[address] MD, Ot N18. 9 CHRONIC KIDNEY DISEASE, UNSPECIFIED 06/16/[address] MD, Ot Z79. 02 TELLER [place] (CURRENT) USE OF ANTITHROMBOTI 06/16/[address] MD, Ot Z79. 82 TELLER [place] (CURRENT) USE OF ASPIRIN 06/16/[address] MD, Ot Z85. 3 PERSONAL HISTORY OF MALIGNANT NEOPLASM O 06/16/[address] MD, Ot Z92. 21 PERSONAL HISTORY OF ANTINEOPLASTIC CHEMO 06/16/[address] MD, Ot Z95. 5 PRESENCE OF CORONARY ANGIOPLASTY IMPLANT 06/23/[address] MD, Ot C54. 1 MALIGNANT NEOPLASM OF ENDOMETRIUM 06/23/[address] MD, Ot C56. 2 MALIGNANT NEOPLASM OF LEFT OVARY 06/23/[address] MD, Ot C78. 02 SECONDARY MALIGNANT NEOPLASM OF LEFT MASSIMO 06/23/[address] MD, Ot C78. 5 SECONDARY MALIGNANT NEOPLASM OF LARGE IN 06/23/[address] MD, Ot C78. 6 SECONDARY MALIGNANT NEOPLASM OF RETROPER 06/23/[address] MD, Ot C79. 89 SECONDARY MALIGNANT NEOPLASM OF OTHER SP 06/23/[address] MD, Ot D50. 0 IRON DEFICIENCY ANEMIA SECONDARY TO BLOO 06/23/[address] MD, Ot D63. 1 ANEMIA IN CHRONIC KIDNEY DISEASE 06/23/[address] MD, Ot D64. 81 ANEMIA DUE TO ANTINEOPLASTIC CHEMOTHERAP 06/23/[address] MD, Ot G62. 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 0 GASTRO-ESOPHAGEAL REFLUX DISEASE WITH ES 06/23/[address] MD, Ot K44. 9 DIAPHRAGMATIC HERNIA WITHOUT OBSTRUCTION 06/23/[address] MD, Ot K55. 20 ANGIODYSPLASIA OF COLON WITHOUT HEMORRHA 06/23/[address] MD, Ot L23. 7 ALLERGIC CONTACT DERMATITIS DUE TO PLANT 06/23/[address] MD, Ot N18. 9 CHRONIC KIDNEY DISEASE, UNSPECIFIED 06/23/[address] MD, Ot T45.1X5A ADVERSE EFFECT OF ANTINEOPLASTIC AND IMM 06/23/[address] MD, Ot Z79. 02 TELLER [place] (CURRENT) USE OF ANTITHROMBOTI 06/23/[address] MD, Ot Z79. 82 TELLER [place] (CURRENT) USE OF ASPIRIN 06/23/[address] MD, Ot Z85. 3 PERSONAL HISTORY OF MALIGNANT NEOPLASM O 06/23/[address] MD, Ot Z92. 21 PERSONAL HISTORY OF ANTINEOPLASTIC CHEMO 06/23/[address] MD, Ot Z92. 3 PERSONAL HISTORY OF IRRADIATION 06/23/[address] MD Ot Z95. 5 PRESENCE OF CORONARY ANGIOPLASTY IMPLANT 06/27/2018 JEAN PAUL ANTHONY MD Ot A41.9 SEPSIS, UNSPECIFIED ORGANISM 06/27/2018 JEAN PAUL ANTHONY MD, Ot C56.9 MALIGNANT NEOPLASM OF UNSPECIFIED OVARY 06/27/2018 JEAN PAUL ANTHONY MD, Ot D61.8 10 ANTINEOPLASTIC CHEMOTHERAPY INDUCED PANC 06/27/2018 JEAN PAUL ANTHONY MD Ot E78.0 0 PURE HYPERCHOLESTEROLEMIA, UNSPECIFIED 06/27/2018 JEAN PAUL ANTHONY MD, Ot E87.6 HYPOKALEMIA 06/27/2018 JEAN PAUL ANTHONY MD, Ot I10 ESSENTIAL (PRIMARY) HYPERTENSION 06/27/2018 GAULT MD, JEAN PAUL R Ot I25.1 0 ATHSCL HEART DISEASE OF BLACKFEET CORONARY 06/27/2018 JEAN PAUL ANTHONY MD Ot K14.0 GLOSSITIS 06/27/2018 JEAN PAUL ANTHONY MD Ot K21.9 GASTRO-ESOPHAGEAL REFLUX DISEASE WITHOUT 06/27/2018 JEAN PAUL ANTHONY MD Ot M19.0 41 PRIMARY OSTEOARTHRITIS, RIGHT HAND 06/27/2018 JEAN PAUL ANTHONY MD Ot M19.0 42 PRIMARY OSTEOARTHRITIS, LEFT HAND 06/27/2018 JEAN PAUL ANTHONY MD Ot M41.9 SCOLIOSIS, UNSPECIFIED 06/27/2018 JEAN PAUL ANTHONY MD R Ot M81.0 AGE-RELATED OSTEOPOROSIS W/O CURRENT PAT 06/27/2018 JEAN PAUL ANTHONY MD Ot N17.9 ACUTE KIDNEY FAILURE, UNSPECIFIED 06/27/2018 JEAN PAUL ANTHONY MD Ot N30.0 0 ACUTE CYSTITIS WITHOUT HEMATURIA 06/27/2018 JEAN PAUL ANTHONY MD Ot Z85.3 PERSONAL HISTORY OF MALIGNANT NEOPLASM O 06/27/2018 JEAN PAUL ANTHONY MD Ot Z87.1 9 PERSONAL HISTORY OF OTHER DISEASES OF TH 06/27/2018 JEAN PAUL ANTHONY MD Ot Z87.8 91 PERSONAL HISTORY OF NICOTINE DEPENDENCE 06/27/2018 JEAN PAUL ANTHONY MD Ot Z95.5 PRESENCE OF CORONARY ANGIOPLASTY IMPLANT 06/30/[address] MD Ot 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 2 MALIGNANT NEOPLASM OF LEFT OVARY 06/30/[address] MD Ot C78. 5 SECONDARY MALIGNANT NEOPLASM OF LARGE IN 06/30/[address] MD Ot C78. 6 SECONDARY MALIGNANT NEOPLASM OF RETROPER 06/30/[address] MD Ot C79. 89 SECONDARY MALIGNANT NEOPLASM OF OTHER SP 06/30/[address] MD, Ot D50. 0 IRON DEFICIENCY ANEMIA SECONDARY TO BLOO 06/30/[address] MD Ot D63. 1 ANEMIA IN CHRONIC KIDNEY DISEASE 06/30/[address] MD Ot D64. 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 0 GASTRO-ESOPHAGEAL REFLUX DISEASE WITH ES 06/30/[address] MD, Ot K44. 9 DIAPHRAGMATIC HERNIA WITHOUT OBSTRUCTION 06/30/[address] MD, Ot N18. 9 CHRONIC KIDNEY DISEASE, UNSPECIFIED 06/30/[address] MD, Ot Z51. 11 ENCOUNTER FOR ANTINEOPLASTIC CHEMOTHERAP 06/30/[address] MD, Ot Z79. 02 CUSTODIAL (CURRENT) USE OF ANTITHROMBOTI 06/30/[address] MD, Ot Z79. 82 CUSTODIAL (CURRENT) USE OF ASPIRIN 06/30/[address] MD, Ot Z85. 3 PERSONAL HISTORY OF MALIGNANT NEOPLASM O 06/30/[address] MD, Ot Z92. 21 PERSONAL HISTORY OF ANTINEOPLASTIC CHEMO 06/30/[address] MD, Ot Z95. 5 PRESENCE OF CORONARY ANGIOPLASTY IMPLANT 06/30/[address] MD, Ot C54. 1 MALIGNANT NEOPLASM OF ENDOMETRIUM 06/30/[address] MD, Ot C56. 2 MALIGNANT NEOPLASM OF LEFT OVARY 06/30/[address] MD, Ot C78. 02 SECONDARY MALIGNANT NEOPLASM OF LEFT MASSIMO 06/30/[address] MD, Ot C78. 5 SECONDARY MALIGNANT NEOPLASM OF LARGE IN 06/30/[address] MD, Ot C78. 6 SECONDARY MALIGNANT NEOPLASM OF RETROPER 06/30/[address] MD, Ot C79. 89 SECONDARY MALIGNANT NEOPLASM OF OTHER SP 06/30/[address] MD, Ot D50. 0 IRON DEFICIENCY ANEMIA SECONDARY TO BLOO 06/30/[address] MD, Ot D63. 1 ANEMIA IN CHRONIC KIDNEY DISEASE 06/30/[address] MD, Ot D64. 81 ANEMIA DUE TO ANTINEOPLASTIC CHEMOTHERAP 06/30/[address] MD, Ot G62. 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 0 GASTRO-ESOPHAGEAL REFLUX DISEASE WITH ES 06/30/[address] MD, Ot K44. 9 DIAPHRAGMATIC HERNIA WITHOUT OBSTRUCTION 06/30/[address] MD, Ot K55. 20 ANGIODYSPLASIA OF COLON WITHOUT HEMORRHA 06/30/[address] MD, Ot L23. 7 ALLERGIC CONTACT DERMATITIS DUE TO PLANT 06/30/[address] MD, Ot N18. 9 CHRONIC KIDNEY DISEASE, UNSPECIFIED 06/30/[address] MD, Ot T45.1X5A ADVERSE EFFECT OF ANTINEOPLASTIC AND IMM 06/30/[address] MD, Ot Z79. 02 CUSTODIAL (CURRENT) USE OF ANTITHROMBOTI 06/30/[address] MD, Ot Z79. 82 TELLER [place] (CURRENT) USE OF ASPIRIN 06/30/[address] MD, Ot Z85. 3 PERSONAL HISTORY OF MALIGNANT NEOPLASM O 06/30/[address] MD, Ot Z92. 21 PERSONAL HISTORY OF ANTINEOPLASTIC CHEMO 06/30/[address] MD, Ot Z92. 3 PERSONAL HISTORY OF IRRADIATION 06/30/[address] MD, Ot Z95. 5 PRESENCE OF CORONARY ANGIOPLASTY IMPLANT 07/04/[address] MD, Ot B96. 20 UNSP ESCHERICHIA COLI THE CAUSE OF DI 07/04/[address] MD, Ot C56. 9 MALIGNANT NEOPLASM OF UNSPECIFIED OVARY 07/04/[address] MD, Ot C78. 00 SECONDARY MALIGNANT NEOPLASM OF UNSPECIF 07/04/[address] MD, Ot D61.810 ANTINEOPLASTIC CHEMOTHERAPY INDUCED PANC 07/04/[address] MD, Ot E66. 01 MORBID (SEVERE) OBESITY DUE TO EXCESS CA 07/04/[address] MD, Ot E66. 9 OBESITY, UNSPECIFIED 07/04/[address] MD, Ot F22 DELUSIONAL DISORDERS 07/04/[address] MD, Ot N39. 0 URINARY TRACT INFECTION, SITE NOT SPECIF 07/04/[address] MD, Ot R41. 82 ALTERED MENTAL STATUS, UNSPECIFIED 07/04/[address] MD, Ot R60. 0 LOCALIZED EDEMA 07/04/[address] MD, Ot Z68. 38 BODY MASS INDEX (BMI) 38.0-38.9, ADULT 07/04/[address] MD, Ot Z85. 3 PERSONAL HISTORY OF MALIGNANT NEOPLASM O 07/04/[address] MD, Ot Z87.440 PERSONAL HISTORY OF URINARY (TRACT) INFE 07/04/[address] MD, Ot Z92. 21 PERSONAL HISTORY OF ANTINEOPLASTIC CHEMO 07/27/[address] MD, Ot C54. 1 MALIGNANT NEOPLASM OF ENDOMETRIUM 07/27/[address] MD, Ot C56. 2 MALIGNANT NEOPLASM OF LEFT OVARY 07/27/[address] MD, Ot C78. 02 SECONDARY MALIGNANT NEOPLASM OF LEFT MASSIMO 07/27/[address] MD, Ot C78. 5 SECONDARY MALIGNANT NEOPLASM OF LARGE IN 07/27/[address] MD, Ot C78. 6 SECONDARY MALIGNANT NEOPLASM OF RETROPER 07/27/[address] MD, Ot C79. 89 SECONDARY MALIGNANT NEOPLASM OF OTHER SP 07/27/[address] MD, Ot D50. 0 IRON DEFICIENCY ANEMIA SECONDARY TO BLOO 07/27/[address] MD, Ot D63. 1 ANEMIA IN CHRONIC KIDNEY DISEASE 07/27/[address] MD, Ot D64. 81 ANEMIA DUE TO ANTINEOPLASTIC CHEMOTHERAP 07/27/[address] MD, Ot G62. 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 0 GASTRO-ESOPHAGEAL REFLUX DISEASE WITH ES 07/27/[address] MD, Ot K44. 9 DIAPHRAGMATIC HERNIA WITHOUT OBSTRUCTION 07/27/[address] MD, Ot K55. 20 ANGIODYSPLASIA OF COLON WITHOUT HEMORRHA 07/27/[address] MD, Ot L23. 7 ALLERGIC CONTACT DERMATITIS DUE TO PLANT 07/27/[address] MD, Ot N18. 9 CHRONIC KIDNEY DISEASE, UNSPECIFIED 07/27/[address] MD, Ot T45.1X5A ADVERSE EFFECT OF ANTINEOPLASTIC AND IMM 07/27/[address] MD, Ot Z79. 02 TELLER [place] (CURRENT) USE OF ANTITHROMBOTI 07/27/[address] MD, Ot Z79. 82 CUSTODIAL (CURRENT) USE OF ASPIRIN 07/27/[address] MD, Ot Z85. 3 PERSONAL HISTORY OF MALIGNANT NEOPLASM O 07/27/[address] MD, Ot Z92. 21 PERSONAL HISTORY OF ANTINEOPLASTIC CHEMO 07/27/[address] MD, Ot Z92. 3 PERSONAL HISTORY OF IRRADIATION 07/27/[address] MD, Ot Z95. 5 PRESENCE OF CORONARY ANGIOPLASTY IMPLANT 09/14/[address] MD, Ot C54. 1 MALIGNANT NEOPLASM OF ENDOMETRIUM 09/14/[address] MD, Ot C56. 2 MALIGNANT NEOPLASM OF LEFT OVARY 09/14/[address] MD, Ot C78. 02 SECONDARY MALIGNANT NEOPLASM OF LEFT MASSIMO 09/14/[address] MD, Ot C78. 5 SECONDARY MALIGNANT NEOPLASM OF LARGE IN 09/14/[address] MD, Ot C78. 6 SECONDARY MALIGNANT NEOPLASM OF RETROPER 09/14/[address] MD, Ot C79. 89 SECONDARY MALIGNANT NEOPLASM OF OTHER SP 09/14/[address] MD, Ot D50. 0 IRON DEFICIENCY ANEMIA SECONDARY TO BLOO 09/14/[address] MD, Ot D63. 1 ANEMIA IN CHRONIC KIDNEY DISEASE 09/14/[address] MD, Ot D64. 81 ANEMIA DUE TO ANTINEOPLASTIC CHEMOTHERAP 09/14/[address] MD, Ot G62. 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 0 GASTRO-ESOPHAGEAL REFLUX DISEASE WITH ES 09/14/[address] MD, Ot K44. 9 DIAPHRAGMATIC HERNIA WITHOUT OBSTRUCTION 09/14/[address] MD, Ot K55. 20 ANGIODYSPLASIA OF COLON WITHOUT HEMORRHA 09/14/[address] MD, Ot L23. 7 ALLERGIC CONTACT DERMATITIS DUE TO PLANT 09/14/[address] MD, Ot N18. 9 CHRONIC KIDNEY DISEASE, UNSPECIFIED 09/14/[address] MD, Ot T45.1X5A ADVERSE EFFECT OF ANTINEOPLASTIC AND IMM 09/14/[address] MD, Ot Z45. 2 ENCOUNTER FOR ADJUSTMENT AND MANAGEMENT 09/14/[address] MD, Ot Z79. 02 CUSTODIAL (CURRENT) USE OF ANTITHROMBOTI 09/14/[address] MD, Ot Z79. 82 TELLER [place] (CURRENT) USE OF ASPIRIN 09/14/[address] MD, Ot Z85. 3 PERSONAL HISTORY OF MALIGNANT NEOPLASM O 09/14/[address] MD, Ot Z92. 21 PERSONAL HISTORY OF ANTINEOPLASTIC CHEMO 09/14/[address] MD, Ot Z92. 3 PERSONAL HISTORY OF IRRADIATION 09/14/[address] MD, Ot Z95. 5 PRESENCE OF CORONARY ANGIOPLASTY IMPLANT 09/16/[address] MD, Ot C54. 1 MALIGNANT NEOPLASM OF ENDOMETRIUM 09/16/[address] MD, Ot C56. 2 MALIGNANT NEOPLASM OF LEFT OVARY 09/16/[address] MD, Ot C78. 02 SECONDARY MALIGNANT NEOPLASM OF LEFT MASSIMO 09/16/[address] MD, Ot C78. 5 SECONDARY MALIGNANT NEOPLASM OF LARGE IN 09/16/[address] MD, Ot C78. 6 SECONDARY MALIGNANT NEOPLASM OF RETROPER 09/16/[address] MD, Ot C79. 89 SECONDARY MALIGNANT NEOPLASM OF OTHER SP 09/16/[address] MD, Ot D50. 0 IRON DEFICIENCY ANEMIA SECONDARY TO BLOO 09/16/[address] MD, Ot D63. 1 ANEMIA IN CHRONIC KIDNEY DISEASE 09/16/[address] MD, Ot D64. 81 ANEMIA DUE TO ANTINEOPLASTIC CHEMOTHERAP 09/16/[address] MD, Ot G62. 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 0 GASTRO-ESOPHAGEAL REFLUX DISEASE WITH ES 09/16/[address] MD, Ot K44. 9 DIAPHRAGMATIC HERNIA WITHOUT OBSTRUCTION 09/16/[address] MD, Ot K55. 20 ANGIODYSPLASIA OF COLON WITHOUT HEMORRHA 09/16/[address] MD, Ot L23. 7 ALLERGIC CONTACT DERMATITIS DUE TO PLANT 09/16/[address] MD, Ot N18. 9 CHRONIC KIDNEY DISEASE, UNSPECIFIED 09/16/[address] MD, Ot T45.1X5A ADVERSE EFFECT OF ANTINEOPLASTIC AND IMM 09/16/[address] MD, Ot Z45. 2 ENCOUNTER FOR ADJUSTMENT AND MANAGEMENT 09/16/[address] MD, Ot Z79. 02 TELLER [place] (CURRENT) USE OF ANTITHROMBOTI 09/16/[address] MD, Ot Z79. 82 CUSTODIAL (CURRENT) USE OF ASPIRIN 09/16/[address] MD, Ot Z85. 3 PERSONAL HISTORY OF MALIGNANT NEOPLASM O 09/16/[address] MD, Ot Z92. 21 PERSONAL HISTORY OF ANTINEOPLASTIC CHEMO 09/16/[address] MD, Ot Z92. 3 PERSONAL HISTORY OF IRRADIATION 09/16/[address] MD, Ot Z95. 5 PRESENCE OF CORONARY ANGIOPLASTY IMPLANT 09/19/2018 FERNY NICHOLSON MD Ot V72.84 EXAM PRE-OPERATIVE NOS 09/19/[address] MD Ot 721. 0 CERVICAL SPONDYLOSIS 09/19/[address] MD, Ot V76. 12 OTH SCREEN MAMMO-MALIGN NEOPLASM OF JORGE LUIS 09/19/2018 FERNY NICHOLSON MD Ot V72.84 EXAM PRE-OPERATIVE NOS 09/19/2018 FERNY NICHOLSON MD Ot V72.84 EXAM PRE-OPERATIVE NOS 09/19/2018 FERNY NICHOLSON MD Ot V72.84 EXAM PRE-OPERATIVE NOS 09/19/2018 ALFREDO CADENA Ot 585.3 CHRONIC KIDNEY DISEASE, STAGE III (MODER 09/19/2018 ALFREDO CADENA Ot 793.5 NOSP (ABN) FINDINGS ON RADIOLOGICAL OT 09/19/2018 FERNY NICHOLSON MD Ot 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 09/19/2018 FERNY NICHOLSON MD Ot V72.84 EXAM PRE-OPERATIVE NOS 09/19/[address] MD Ot 174. 9 MALIGN NEOPL BREAST NOS 09/19/[address] MD Ot V76. 11 SCRN MAMMO-HIGH RISK PT, MALIGNANT NEOPL 09/19/[address] MD Ot 183. 0 MALIGN NEOPL OVARY 09/19/2018 BAIMA, NALINI L REFRIGERATOR ROOM CLERK Ot 272.4 HYPERLIPIDEMIA NEC/NOS 09/19/2018 BAIMA, NALINI L REFRIGERATOR ROOM CLERK Ot 401.9 HYPERTENSION NOS 09/19/2018 BAIMA, NALINI L REFRIGERATOR ROOM CLERK Ot 414.9 CHR ISCHEMIC HRT DIS NOS 09/19/2018 BAIMA, NALINI L REFRIGERATOR ROOM CLERK Ot 437.9 CEREBROVASC DISEASE NOS 09/19/2018 BAIMA, NALINI L REFRIGERATOR ROOM CLERK Ot 272.4 HYPERLIPIDEMIA NEC/NOS 09/19/2018 BAIMA, NALINI L REFRIGERATOR ROOM CLERK Ot 401.9 HYPERTENSION NOS 09/19/2018 BAIMA, NALINI L REFRIGERATOR ROOM CLERK Ot 414.00 CORON ATHEROSCLER NOS TYPE VESSEL, NATIV 09/19/2018 BAIMA, NALINI L REFRIGERATOR ROOM CLERK Ot 437.9 CEREBROVASC DISEASE NOS 09/19/[address] MD Ot 174. 9 MALIGN NEOPL BREAST NOS 09/19/[address] MD Ot 183. 0 MALIGN NEOPL OVARY 09/19/2018 BHARAT LIU, FERNY S Ot 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 09/19/2018 FERNY NICHOLSON MD S Ot V72.84 EXAM PRE-OPERATIVE NOS 09/19/[address] MD Ot C50.919 MALIGNANT NEOPLASM OF UNSP SITE OF UNSPE 09/19/[address] MD, Ot C56. 9 MALIGNANT NEOPLASM OF UNSPECIFIED OVARY 09/19/[address] MD, Ot T85.698A [facility] COMPL OF INTERNAL PROSTH DEV/GRFT, 09/19/2018 TEODORO HERNANDEZ DO Ot Z01.818 ENCOUNTER FOR OTHER PREPROCEDURAL EXAMIN 09/19/[address] MD, Ot C56. 2 MALIGNANT NEOPLASM OF LEFT OVARY 09/19/[address] MD, Ot Z85. 3 PERSONAL HISTORY OF MALIGNANT NEOPLASM O 09/19/[address] MD, Ot C50.919 MALIGNANT NEOPLASM OF UNSP SITE OF UNSPE 09/19/[address] MD, Ot C56. 9 MALIGNANT NEOPLASM OF UNSPECIFIED OVARY 09/19/2018 XUN MD, ROSARIO-ARCELIA Ot Z12. 31 ENCNTR SCREEN MAMMOGRAM FOR MALIGNANT NE 09/19/[address] MD Ot C56. 1 MALIGNANT NEOPLASM OF RIGHT OVARY 09/19/[address] MD Ot N18. 9 CHRONIC KIDNEY DISEASE, UNSPECIFIED 09/19/2018 ARIELLA PENALOZA DO Ot C55 MALIGNANT NEOPLASM OF UTERUS, PART UNSPE 09/19/2018 ARIELLA PENALOZA DO Ot C56. 2 MALIGNANT NEOPLASM OF LEFT OVARY 09/19/2018 ARIELLA PENALOZA DO Ot E78. 5 HYPERLIPIDEMIA, UNSPECIFIED 09/19/2018 PENALOZA DO, ARIELLA D Ot G47. 33 OBSTRUCTIVE SLEEP APNEA (ADULT) (PEDIATR 09/19/2018 CA DOARIELLA D Ot I12. 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 2 CHRONIC KIDNEY DISEASE, STAGE 2 (MILD) 09/19/2018 ARIELLA PENALOZA DO Ot T82.514A BREAKDOWN (MECHANICAL) OF INFUSION PAT 09/19/2018 CA DOARIELLA Ot Z79. 02 TELLER VAULT (CURRENT) USE OF ANTITHROMBOTI 09/19/2018 ARIELLA PENALOZA DO Ot Z79. 82 CUSTODIAL (CURRENT) USE OF ASPIRIN 09/19/2018 ARIELLA PENALOZA DO D Ot Z85. 3 PERSONAL HISTORY OF MALIGNANT NEOPLASM O 09/19/2018 ARIELLA PENALOZA DO Ot C56. 9 MALIGNANT NEOPLASM OF UNSPECIFIED OVARY 09/19/2018 ARIELLA PENALOZA DO Ot E78. 5 HYPERLIPIDEMIA, UNSPECIFIED 09/19/2018 CA DOYASHTT D Ot G47. 33 OBSTRUCTIVE SLEEP APNEA (ADULT) (PEDIATR 09/19/2018 CA DOYASHTT D Ot I12. 9 HYPERTENSIVE CHRONIC KIDNEY DISEASE W ST 09/19/2018 CA DOARIELLA D Ot I25. 10 ATHSCL HEART DISEASE OF [place]FE[place] CORONARY 09/19/2018 CA DOYASHTT D Ot N18. 2 CHRONIC KIDNEY DISEASE, STAGE 2 (MILD) 09/19/2018 CA DOYASHTT D Ot T82.514D BREAKDOWN (MECHANICAL) OF INFUSION PAT 09/19/2018 ARIELLA PENALOZA DO Ot Z79. 02 TELLER VAULT (CURRENT) USE OF ANTITHROMBOTI 09/19/2018 ARIELLA PENALOZA DO Ot Z79. 82 CUSTODIAL (CURRENT) USE OF ASPIRIN 09/19/2018 ARIELLA PENALOZA DO Ot Z85. 3 PERSONAL HISTORY OF MALIGNANT NEOPLASM O 09/19/2018 JAD LIU, DANA Ot C56. 1 MALIGNANT NEOPLASM OF RIGHT OVARY 09/19/2018 JAD LIU, DANA Ot Z12. 31 ENCNTR SCREEN MAMMOGRAM FOR MALIGNANT NE 09/19/2018 LAURA LIU FACC, ALI FACP CCDS Ot E66.09 OTHER OBESITY DUE TO EXCESS CALORIES 09/19/2018 LAURA LIU FACC, ALI FACP CCDS Ot E78.4 OTHER HYPERLIPIDEMIA 09/19/2018 LAURA LIU FACC, ALI FACP CCDS Ot G47.33 OBSTRUCTIVE SLEEP APNEA (ADULT) (PEDIATR 09/19/2018 LAURA LIU FACC, ALI FACP CCDS Ot I12.9 HYPERTENSIVE CHRONIC KIDNEY DISEASE W ST 09/19/2018 LAURA LIU FACC, ALI FACP CCDS Ot 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 09/19/2018 LAURA LIU FACC, ALI FACP CCDS Ot I65.23 OCCLUSION AND STENOSIS OF BILATERAL REGAN 09/19/2018 LAURA LIU FACC, ALI FACP CCDS Ot N18.2 CHRONIC KIDNEY DISEASE, STAGE 2 (MILD) 09/19/2018 LAURA LIU FACC, ALI FACP CCDS Ot R07.89 OTHER CHEST PAIN 09/19/2018 LAURA LIU FACC, ALI FACP CCDS Ot E66.09 OTHER OBESITY DUE TO EXCESS CALORIES 09/19/2018 LAURA LIU FACC, ALI FACP CCDS Ot E78.4 OTHER HYPERLIPIDEMIA 09/19/2018 LAURA LIU FACC, ALI FACP CCDS Ot G47.33 OBSTRUCTIVE SLEEP APNEA (ADULT) (PEDIATR 09/19/2018 LAURA LIU FACC, ALI FACP CCDS Ot I12.9 HYPERTENSIVE CHRONIC KIDNEY DISEASE W ST 09/19/2018 LAURA LIU FACC, ALI FACP CCDS Ot 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 0 MAMMOGRAPHIC MICROCALCIFICATION FOUND ON 09/19/[address] MD, Ot Z12. 31 ENCNTR SCREEN MAMMOGRAM FOR MALIGNANT NE 09/19/2018 CRISTY SILVER NP-C Ot D63.1 ANEMIA IN CHRONIC KIDNEY DISEASE 09/19/2018 CRISTY SIVLER NP-C Ot E46 UNSPECIFIED PROTEIN-CALORIE MALNUTRITION 09/19/2018 CRISTY SILVER NP-C Ot E55.9 VITAMIN D DEFICIENCY, UNSPECIFIED 09/19/2018 CRISTY SILVER NP-C Ot E78.5 HYPERLIPIDEMIA, UNSPECIFIED 09/19/2018 CRISTY SILVER NP-C Ot E83.4 2 HYPOMAGNESEMIA 09/19/2018 CRISTY SILVER NP-C Ot E87.2 ACIDOSIS 09/19/2018 CRISTY SILVER NP-C Ot E87.3 ALKALOSIS 09/19/2018 CRISTY SILVER NP-C Ot I13.1 0 HYP HRT CHR KDNY DIS W/O HRT FAIL, W S 09/19/2018 CRISTY SILVER NP-C Ot I70.1 ATHEROSCLEROSIS OF RENAL ARTERY 09/19/2018 CRISTY SILVER NP-C Ot N18.4 CHRONIC KIDNEY DISEASE, STAGE 4 (SEVERE) 09/19/2018 CRISTY SILVER NP-C Ot N25.8 1 SECONDARY HYPERPARATHYROIDISM OF RENAL O 09/19/2018 CRISTY SILVER NP-C Ot R73.0 1 IMPAIRED FASTING GLUCOSE 09/19/2018 CRISTY SILVER NP-C Ot R80.9 PROTEINURIA, UNSPECIFIED 09/19/[address] MD Ot R92. 1 MAMMOGRAPHIC CALCIFCN FOUND ON DIAGNOSTI 09/19/[address] MD, Ot C56. 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 0 FATTY (CHANGE OF) LIVER, NOT ELSEWHERE C 09/19/[address] MD Ot R91. 8 OTHER NONSPECIFIC ABNORMAL FINDING OF KEVYN 09/19/[address] MD, Ot C56. 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 1 SOLITARY PULMONARY NODULE 09/19/2018 NEWCRISTY KENNEL ASSISTANT-C Ot D63.1 ANEMIA IN CHRONIC KIDNEY DISEASE 09/19/2018 NEWCRISTY KENNEL ASSISTANT-C Ot E46 UNSPECIFIED PROTEIN-CALORIE MALNUTRITION 09/19/2018 NEWCRISTY GRosalio KENNEL ASSISTANT-C Ot E55.9 VITAMIN D DEFICIENCY, UNSPECIFIED 09/19/2018 NEW CRISTY GRosalio KENNEL ASSISTANT-C Ot E66.9 OBESITY, UNSPECIFIED 09/19/2018 NEW CRISTY GRosalio KENNEL ASSISTANT-C Ot E78.5 HYPERLIPIDEMIA, UNSPECIFIED 09/19/2018 NEW CRISTY G. KENNEL ASSISTANT-C Ot E83.4 2 HYPOMAGNESEMIA 09/19/2018 NEWCRISTY KENNEL ASSISTANT-C Ot E87.2 ACIDOSIS 09/19/2018 NEW CRISTY GRosalio KENNEL ASSISTANT-C Ot E87.3 ALKALOSIS 09/19/2018 NEW CRISTY G. KENNEL ASSISTANT-C Ot I12.9 HYPERTENSIVE CHRONIC KIDNEY DISEASE W ST 09/19/2018 NEWCRISTY GRosalio KENNEL ASSISTANT-C Ot I70.1 ATHEROSCLEROSIS OF RENAL ARTERY 09/19/2018 NEW CRISTY GRosalio KENNEL ASSISTANT-C Ot N18.4 CHRONIC KIDNEY DISEASE, STAGE 4 (SEVERE) 09/19/2018 NEW CRISTY GRosalio KENNEL ASSISTANT-C Ot N25.8 1 SECONDARY HYPERPARATHYROIDISM OF RENAL O 09/19/2018 NEWCRISTY KENNEL ASSISTANT-C Ot R73.0 1 IMPAIRED FASTING GLUCOSE 09/19/2018 ADRIANNE CRISTY Koch. 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 2 MALIGNANT NEOPLASM OF LEFT OVARY 09/19/[address] MD, Ot C78. 5 SECONDARY MALIGNANT NEOPLASM OF LARGE IN 09/19/[address] MD, Ot C78. 6 SECONDARY MALIGNANT NEOPLASM OF RETROPER 09/19/[address] MD, Ot C79. 89 SECONDARY MALIGNANT NEOPLASM OF OTHER SP 09/19/[address] MD, Ot D50. 0 IRON DEFICIENCY ANEMIA SECONDARY TO BLOO 09/19/[address] MD, Ot D63. 1 ANEMIA IN CHRONIC KIDNEY DISEASE 09/19/[address] MD, Ot D64. 81 ANEMIA DUE TO ANTINEOPLASTIC CHEMOTHERAP 09/19/[address] MD, Ot I25. 10 ATHSCL HEART DISEASE OF BLACKFEET CORONARY 09/19/[address] MD, Ot K21. 0 GASTRO-ESOPHAGEAL REFLUX DISEASE WITH ES 09/19/[address] MD, Ot K44. 9 DIAPHRAGMATIC HERNIA WITHOUT OBSTRUCTION 09/19/[address] MD, Ot N18. 9 CHRONIC KIDNEY DISEASE, UNSPECIFIED 09/19/[address] MD, Ot Z51. 11 ENCOUNTER FOR ANTINEOPLASTIC CHEMOTHERAP 09/19/[address] MD, Ot Z79. 02 CUSTODIAL (CURRENT) USE OF ANTITHROMBOTI 09/19/[address] MD, Ot Z79. 82 TELLER VAULT (CURRENT) USE OF ASPIRIN 09/19/[address] MD, Ot Z85. 3 PERSONAL HISTORY OF MALIGNANT NEOPLASM O 09/19/[address] MD, Ot Z92. 21 PERSONAL HISTORY OF ANTINEOPLASTIC CHEMO 09/19/[address] MD, Ot Z95. 5 PRESENCE OF CORONARY ANGIOPLASTY IMPLANT 09/21/[address] MD, Ot T85.9XXA UNSP COMPLICATION OF INTERNAL PROSTH DEV 09/22/[address] MD, Ot C55 MALIGNANT NEOPLASM OF UTERUS, PART UNSPE 09/22/[address] MD, Ot C56. 2 MALIGNANT NEOPLASM OF LEFT OVARY 09/22/[address] MD, Ot C78. 5 SECONDARY MALIGNANT NEOPLASM OF LARGE IN 09/22/[address] MD, Ot C78. 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 0 IRON DEFICIENCY ANEMIA SECONDARY TO BLOO 09/22/[address] MD, Ot D63. 1 ANEMIA IN CHRONIC KIDNEY DISEASE 09/22/[address] MD, Ot D64. 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 0 GASTRO-ESOPHAGEAL REFLUX DISEASE WITH ES 09/22/[address] MD, Ot K44. 9 DIAPHRAGMATIC HERNIA WITHOUT OBSTRUCTION 09/22/[address] MD, Ot N18. 9 CHRONIC KIDNEY DISEASE, UNSPECIFIED 09/22/[address] MD, Ot Z51. 11 ENCOUNTER FOR ANTINEOPLASTIC CHEMOTHERAP 09/22/[address] MD, Ot Z79. 02 CUSTODIAL (CURRENT) USE OF ANTITHROMBOTI 09/22/[address] MD, Ot Z79. 82 CUSTODIAL (CURRENT) USE OF ASPIRIN 09/22/[address] MD, Ot Z85. 3 PERSONAL HISTORY OF MALIGNANT NEOPLASM O 09/22/[address] MD, Ot Z92. 21 PERSONAL HISTORY OF ANTINEOPLASTIC CHEMO 09/22/[address] MD, Ot Z95. 5 PRESENCE OF CORONARY ANGIOPLASTY IMPLANT 09/22/2018 ARIELLA PENALOZA DO Ot Z01.818 ENCOUNTER FOR OTHER PREPROCEDURAL EXAMIN 09/26/2018 TILLAR ARIELLA LARIOS Ot Z01.818 ENCOUNTER FOR OTHER PREPROCEDURAL EXAMIN 09/28/2018 BHARAT LIU, FERNY Gordon Ot V72.84 EXAM PRE-OPERATIVE NOS 09/28/2018 JAD LIU, DANA Ot 721. 0 CERVICAL SPONDYLOSIS 09/28/[address] MD Ot V76. 12 OTH SCREEN MAMMO-MALIGN NEOPLASM OF JORGE LUIS 09/28/2018 BHARAT LIU, FERNY S Ot V72.84 EXAM PRE-OPERATIVE NOS 09/28/2018 FENRY NICHOLSON MD Ot V72.84 EXAM PRE-OPERATIVE NOS 09/28/2018 FERNY NICHOLSON MD S Ot V72.84 EXAM PRE-OPERATIVE NOS 09/28/2018 ALFREDO CADENA Ot 585.3 CHRONIC KIDNEY DISEASE, STAGE III (MODER 09/28/2018 ALFREDO CADENA Ot 793.5 NOSP (ABN) FINDINGS ON RADIOLOGICAL OT 09/28/2018 FERNY NICHOLSON MD S Ot 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 09/28/2018 FERNY NICHOLSON MD S Ot V72.84 EXAM PRE-OPERATIVE NOS 09/28/2018 JAD LIU, DANA Ot 174. 9 MALIGN NEOPL BREAST NOS 09/28/[address] MD Ot V76. 11 SCRN MAMMO-HIGH RISK PT, MALIGNANT NEOPL 09/28/[address] MD Ot 183. 0 MALIGN NEOPL OVARY 09/28/2018 NALINI SEBASTIAN L REFRIGERATOR ROOM CLERK Ot 272.4 HYPERLIPIDEMIA NEC/NOS 09/28/2018 CORYMA NALINI L REFRIGERATOR ROOM CLERK Ot 401.9 HYPERTENSION NOS 09/28/2018 JAZ NALINI L REFRIGERATOR ROOM CLERK Ot 414.9 CHR ISCHEMIC HRT DIS NOS 09/28/2018 JAZ NALINI L REFRIGERATOR ROOM CLERK Ot 437.9 CEREBROVASC DISEASE NOS 09/28/2018 JAZ NALINI L REFRIGERATOR ROOM CLERK Ot 272.4 HYPERLIPIDEMIA NEC/NOS 09/28/2018 JAZ NALINI L REFRIGERATOR ROOM CLERK Ot 401.9 HYPERTENSION NOS 09/28/2018 JAZ NALINI L REFRIGERATOR ROOM CLERK Ot 414.00 CORON ATHEROSCLER NOS TYPE VESSEL, NATIV 09/28/2018 JAZ NALINI L REFRIGERATOR ROOM CLERK Ot 437.9 CEREBROVASC DISEASE NOS 09/28/[address] MD Ot 174. 9 MALIGN NEOPL BREAST NOS 09/28/[address] MD Ot 183. 0 MALIGN NEOPL OVARY 09/28/2018 BHARAT LIU, FERNY S Ot 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 09/28/2018 FERNY NICHOLSON MD Ot V72.84 EXAM PRE-OPERATIVE NOS 09/28/[address] MD, Ot C50.919 MALIGNANT NEOPLASM OF UNSP SITE OF UNSPE 09/28/[address] MD, Ot C56. 9 MALIGNANT NEOPLASM OF UNSPECIFIED OVARY 09/28/[address] MD Ot T85.698A [facility] COMPL OF INTERNAL PROSTH DEV/GRFT, 09/28/2018 TEODORO HERNANDEZ DO Ot Z01.818 ENCOUNTER FOR OTHER PREPROCEDURAL EXAMIN 09/28/[address] MD, Ot C56. 2 MALIGNANT NEOPLASM OF LEFT OVARY 09/28/[address] MD Ot Z85. 3 PERSONAL HISTORY OF MALIGNANT NEOPLASM O 09/28/[address] MD Ot C50.919 MALIGNANT NEOPLASM OF UNSP SITE OF UNSPE 09/28/[address] MD, Ot C56. 9 MALIGNANT NEOPLASM OF UNSPECIFIED OVARY 09/28/[address] MD Ot Z12. 31 ENCNTR SCREEN MAMMOGRAM FOR MALIGNANT NE 09/28/[address] MD Ot C56. 1 MALIGNANT NEOPLASM OF RIGHT OVARY 09/28/[address] MD Ot N18. 9 CHRONIC KIDNEY DISEASE, UNSPECIFIED 09/28/2018 ARIELLA PENALOZA DO Ot C55 MALIGNANT NEOPLASM OF UTERUS, PART UNSPE 09/28/2018 ARIELLA PENALOZA DO Ot C56. 2 MALIGNANT NEOPLASM OF LEFT OVARY 09/28/2018 ARIELLA PENALOZA DO Ot E78. 5 HYPERLIPIDEMIA, UNSPECIFIED 09/28/2018 ARIELLA PENALOZA DO Ot G47. 33 OBSTRUCTIVE SLEEP APNEA (ADULT) (PEDIATR 09/28/2018 ARIELLA PENALOZA DO Ot I12. 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 2 CHRONIC KIDNEY DISEASE, STAGE 2 (MILD) 09/28/2018 PENALOZA DOARIELLA D Ot T82.514A BREAKDOWN (MECHANICAL) OF INFUSION PAT 09/28/2018 PENALOZA DOYASHTT D Ot Z79. 02 CUSTODIAL (CURRENT) USE OF ANTITHROMBOTI 09/28/2018 PENALOZA DO ARIELLA D Ot Z79. 82 TELLER VAULT (CURRENT) USE OF ASPIRIN 09/28/2018 PENALOZA DO, ARIELLA D Ot Z85. 3 PERSONAL HISTORY OF MALIGNANT NEOPLASM O 09/28/2018 PENALOZA DO ARIELLA D Ot C56. 9 MALIGNANT NEOPLASM OF UNSPECIFIED OVARY 09/28/2018 PENALOZA DO ARIELLA D Ot E78. 5 HYPERLIPIDEMIA, UNSPECIFIED 09/28/2018 PENALOZA DO, ARIELLA D Ot G47. 33 OBSTRUCTIVE SLEEP APNEA (ADULT) (PEDIATR 09/28/2018 CA DOARIELLA D Ot I12. 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 2 CHRONIC KIDNEY DISEASE, STAGE 2 (MILD) 09/28/2018 CA DOARIELLA D Ot T82.514D BREAKDOWN (MECHANICAL) OF INFUSION PAT 09/28/2018 PENALOZA DOARIELLA D Ot Z79. 02 CUSTODIAL (CURRENT) USE OF ANTITHROMBOTI 09/28/2018 PENALOZA DOYASHTT D Ot Z79. 82 TELLER VAULT (CURRENT) USE OF ASPIRIN 09/28/2018 PENALOZA DO ARIELLA D Ot Z85. 3 PERSONAL HISTORY OF MALIGNANT NEOPLASM O 09/28/2018 JAD LIU, DANA Ot C56. 1 MALIGNANT NEOPLASM OF RIGHT OVARY 09/28/2018 JAD LIU, DANA Ot Z12. 31 ENCNTR SCREEN MAMMOGRAM FOR MALIGNANT NE 09/28/2018 LAURA LIU FACSherine, ALI FACP CCDS Ot E66.09 OTHER OBESITY DUE TO EXCESS CALORIES 09/28/2018 LAURA LIU FACSherine, ALI FACP CCDS Ot E78.4 OTHER HYPERLIPIDEMIA 09/28/2018 LAURA LIU FACSherine, ALI FACP CCDS Ot G47.33 OBSTRUCTIVE SLEEP APNEA (ADULT) (PEDIATR 09/28/2018 LAURA MD FACC, ALI FACP CCDS Ot I12.9 HYPERTENSIVE CHRONIC KIDNEY DISEASE W ST 09/28/2018 LAURA FACC, ALI FACP CCDS Ot 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 09/28/2018 LAURA MD FACC, ALI FACP CCDS Ot I65.23 OCCLUSION AND STENOSIS OF BILATERAL REGAN 09/28/2018 LAURA FACC, ALI FACP CCDS Ot N18.2 CHRONIC KIDNEY DISEASE, STAGE 2 (MILD) 09/28/2018 LAURA FACC, ALI FACP CCDS Ot R07.89 OTHER CHEST PAIN 09/28/2018 LAURA MD FACC, ALI FACP CCDS Ot E66.09 OTHER OBESITY DUE TO EXCESS CALORIES 09/28/2018 LAURA MD FACC, ALI FACP CCDS Ot E78.4 OTHER HYPERLIPIDEMIA 09/28/2018 LAURA MD FACC, ALI FACP CCDS Ot G47.33 OBSTRUCTIVE SLEEP APNEA (ADULT) (PEDIATR 09/28/2018 LAURA MD FACC, ALI FACP CCDS Ot I12.9 HYPERTENSIVE CHRONIC KIDNEY DISEASE W ST 09/28/2018 LAURA MD FACC, ALI FACP CCDS Ot 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 0 MAMMOGRAPHIC MICROCALCIFICATION FOUND ON 09/28/[address] MD Ot Z12. 31 ENCNTR SCREEN MAMMOGRAM FOR MALIGNANT NE 09/28/2018 NEW, CRISTY G. KENNEL ASSISTANT-C Ot D63.1 ANEMIA IN CHRONIC KIDNEY DISEASE 09/28/2018 NEW, CRISTY AugustRosalio KENNEL ASSISTANT-C Ot E46 UNSPECIFIED PROTEIN-CALORIE MALNUTRITION 09/28/2018 NEW, CRISTY AugustRosalio KENNEL ASSISTANT-C Ot E55.9 VITAMIN D DEFICIENCY, UNSPECIFIED 09/28/2018 NEW, CRISTY AugustRosalio KENNEL ASSISTANT-C Ot E78.5 HYPERLIPIDEMIA, UNSPECIFIED 09/28/2018 NEW, CRISTY Ross NP-C Ot E83.4 2 HYPOMAGNESEMIA 09/28/2018 NEW, CRISTY AugustRosalio KENNEL ASSISTANT-C Ot E87.2 ACIDOSIS 09/28/2018 NEW, CRISTY AugustRosalio KENNEL ASSISTANT-C Ot E87.3 ALKALOSIS 09/28/2018 NEW, CRISTY AugustRosalio KENNEL ASSISTANT-C Ot 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 1 MAMMOGRAPHIC CALCIFCN FOUND ON DIAGNOSTI 09/28/[address] MD Ot C56. 1 MALIGNANT NEOPLASM OF RIGHT OVARY 09/28/[address] MD Ot D05. 11 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 09/28/[address] MD Ot K76. 0 FATTY (CHANGE OF) LIVER, NOT ELSEWHERE C 09/28/[address] MD Ot R91. 8 OTHER NONSPECIFIC ABNORMAL FINDING OF KEVYN 09/28/[address] MD Ot C56. 1 MALIGNANT NEOPLASM OF RIGHT OVARY 09/28/[address] MD Ot D05. 11 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 09/28/[address] MD Ot R91. 1 SOLITARY PULMONARY NODULE 09/28/2018 NEW, CRISTY Koch. KENNEL ASSISTANT-C Ot D63.1 ANEMIA IN CHRONIC KIDNEY DISEASE 09/28/2018 NEW, CRISTY G. KENNEL ASSISTANT-C Ot E46 UNSPECIFIED PROTEIN-CALORIE MALNUTRITION 09/28/2018 NEW, CRISTY G. KENNEL ASSISTANT-C Ot E55.9 VITAMIN D DEFICIENCY, UNSPECIFIED 09/28/2018 NEW, CRISTY G. KENNEL ASSISTANT-C Ot E66.9 OBESITY, UNSPECIFIED 09/28/2018 NEW, CRISTY G. KENNEL ASSISTANT-C Ot E78.5 HYPERLIPIDEMIA, UNSPECIFIED 09/28/2018 NEW, CRISTY G. KENNEL ASSISTANT-C Ot E83.4 2 HYPOMAGNESEMIA 09/28/2018 NEW, CRISTY G. KENNEL ASSISTANT-C Ot E87.2 ACIDOSIS 09/28/2018 NEW, CRISTY G. KENNEL ASSISTANT-C Ot E87.3 ALKALOSIS 09/28/2018 NEW, CRISTY G. KENNEL ASSISTANT-C Ot I12.9 HYPERTENSIVE CHRONIC KIDNEY DISEASE W ST 09/28/2018 NEW, CRISTY G. KENNEL ASSISTANT-C Ot I70.1 ATHEROSCLEROSIS OF RENAL ARTERY 09/28/2018 NEW, CRISTY G. KENNEL ASSISTANT-C Ot N18.4 CHRONIC KIDNEY DISEASE, STAGE 4 (SEVERE) 09/28/2018 NEW, CRISTY G. KENNEL ASSISTANT-C Ot N25.8 1 SECONDARY HYPERPARATHYROIDISM OF RENAL O 09/28/2018 NEW, CRISTY G. KENNEL ASSISTANT-C Ot R73.0 1 IMPAIRED FASTING GLUCOSE 09/28/2018 NEW, CRISTY G. KENNEL ASSISTANT-C Ot R80.9 PROTEINURIA, UNSPECIFIED 09/28/2018 KATIA PARR MD Ot C54.1 MALIGNANT NEOPLASM OF ENDOMETRIUM 09/28/2018 KATIA PARR MD Ot C56.1 MALIGNANT NEOPLASM OF RIGHT OVARY 09/28/2018 KATIA PARR MD Ot D05.11 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 09/28/2018 KATIA PARR MD Ot K80.20 CALCULUS OF GALLBLADDER W/O CHOLECYSTITI 09/28/2018 KATIA PARR MD Ot N32.89 OTHER SPECIFIED DISORDERS OF BLADDER 09/28/[address] MD Ot C55 MALIGNANT NEOPLASM OF UTERUS, PART UNSPE 09/28/[address] MD, Ot C56. 2 MALIGNANT NEOPLASM OF LEFT OVARY 09/28/[address] MD Ot C78. 5 SECONDARY MALIGNANT NEOPLASM OF LARGE IN 09/28/[address] MD, Ot C78. 6 SECONDARY MALIGNANT NEOPLASM OF RETROPER 09/28/[address] MD, Ot C79. 89 SECONDARY MALIGNANT NEOPLASM OF OTHER SP 09/28/[address] MD, Ot D50. 0 IRON DEFICIENCY ANEMIA SECONDARY TO BLOO 09/28/[address] MD, Ot D63. 1 ANEMIA IN CHRONIC KIDNEY DISEASE 09/28/[address] MD, Ot D64. 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 0 GASTRO-ESOPHAGEAL REFLUX DISEASE WITH ES 09/28/[address] MD, Ot K44. 9 DIAPHRAGMATIC HERNIA WITHOUT OBSTRUCTION 09/28/[address] MD, Ot N18. 9 CHRONIC KIDNEY DISEASE, UNSPECIFIED 09/28/[address] MD, Ot Z51. 11 ENCOUNTER FOR ANTINEOPLASTIC CHEMOTHERAP 09/28/[address] MD, Ot Z79. 02 TELLER [place]ULT (CURRENT) USE OF ANTITHROMBOTI 09/28/[address] MD, Ot Z79. 82 CUSTODIAL (CURRENT) USE OF ASPIRIN 09/28/[address] MD, Ot Z85. 3 PERSONAL HISTORY OF MALIGNANT NEOPLASM O 09/28/[address] MD, Ot Z92. 21 PERSONAL HISTORY OF ANTINEOPLASTIC CHEMO 09/28/[address] MD, Ot Z95. 5 PRESENCE OF CORONARY ANGIOPLASTY IMPLANT 09/28/[address] MD, Ot C54. 1 MALIGNANT NEOPLASM OF ENDOMETRIUM 09/28/[address] MD, Ot C56. 2 MALIGNANT NEOPLASM OF LEFT OVARY 09/28/[address] MD, Ot C78. 02 SECONDARY MALIGNANT NEOPLASM OF LEFT MASSIMO 09/28/[address] MD, Ot C78. 5 SECONDARY MALIGNANT NEOPLASM OF LARGE IN 09/28/[address] MD, Ot C78. 6 SECONDARY MALIGNANT NEOPLASM OF RETROPER 09/28/[address] MD, Ot C79. 89 SECONDARY MALIGNANT NEOPLASM OF OTHER SP 09/28/2018 XUN MD, ROSARIO-ARCELIA Ot Z85. 3 PERSONAL HISTORY OF MALIGNANT NEOPLASM O 09/28/2018 JAD LIU, DANA Ot T85.9XXA UNSP COMPLICATION OF INTERNAL PROSTH DEV 09/29/2018 ARIELLA PENALOZA DO Ot C56. 2 MALIGNANT NEOPLASM OF LEFT OVARY 09/29/2018 ARIELLA PENALOZA DO Ot E66. 01 MORBID (SEVERE) OBESITY DUE TO EXCESS CA 09/29/2018 ARIELLA PENALOZA DO Ot G47. 33 OBSTRUCTIVE SLEEP APNEA (ADULT) (PEDIATR 09/29/2018 ARIELLA PENALOZA DO Ot I12. 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 9 GASTRO-ESOPHAGEAL REFLUX DISEASE WITHOUT 09/29/2018 ARIELLA PENALOZA DO Ot N18. 2 CHRONIC KIDNEY DISEASE, STAGE 2 (MILD) 09/29/2018 ARIELLA PENALOZA DO Ot T82.514A BREAKDOWN (MECHANICAL) OF INFUSION PAT 09/29/2018 ARIELLA PENALOZA DO Ot Z68. 41 BODY MASS INDEX (BMI) 40.0-44.9, ADULT 09/29/2018 ARIELLA PENALOZA DO Ot Z79. 02 CUSTODIAL (CURRENT) USE OF ANTITHROMBOTI 09/29/2018 ARIELLA PENALOZA DO Ot Z79.899 OTHER TELLER VAULT (CURRENT) DRUG THERAPY 09/29/2018 ARIELLA PENALOZA DO Ot Z85. 3 PERSONAL HISTORY OF MALIGNANT NEOPLASM O 09/29/2018 ARIELLA PENALOZA DO Ot Z87.891 PERSONAL HISTORY OF NICOTINE DEPENDENCE 09/29/2018 ARIELLA PENALOZA DO Ot Z95. 5 PRESENCE OF CORONARY ANGIOPLASTY IMPLANT 10/03/2018 ARIELLA PENALOZA DO Ot C56. 2 MALIGNANT NEOPLASM OF LEFT OVARY 10/03/2018 ARIELLA PENALOZA DO Ot E66. 01 MORBID (SEVERE) OBESITY DUE TO EXCESS CA 10/03/2018 ARIELLA PENALOZA DO Ot G47. 33 OBSTRUCTIVE SLEEP APNEA (ADULT) (PEDIATR 10/03/2018 ARIELLA PENALOZA DO Ot I12. 9 HYPERTENSIVE CHRONIC KIDNEY DISEASE W ST 10/03/2018 ARIELLA PENALOZA DO Ot I25. 10 ATHSCL HEART DISEASE OF [place] CORONARY 10/03/2018 ARIELLA PENALOZA DO Ot K21. 9 GASTRO-ESOPHAGEAL REFLUX DISEASE WITHOUT 10/03/2018 ARIELLA PENALOZA DO Ot N18. 2 CHRONIC KIDNEY DISEASE, STAGE 2 (MILD) 10/03/2018 ARIELLA PENALOZA DO Ot T82.514A BREAKDOWN (MECHANICAL) OF INFUSION PAT 10/03/2018 ARIELLA PENALOZA DO Ot Z68. 41 BODY MASS INDEX (BMI) 40.0-44.9, ADULT 10/03/2018 ARIELLA PENALOZA DO Ot Z79. 02 CUSTODIAL (CURRENT) USE OF ANTITHROMBOTI 10/03/2018 ARIELLA PENALOZA DO Ot Z79.899 OTHER TELLER VAULT (CURRENT) DRUG THERAPY 10/03/2018 ARIELLA PENALOZA DO Ot Z85. 3 PERSONAL HISTORY OF MALIGNANT NEOPLASM O 10/03/2018 ARIELLA PENALOZA DO Ot Z87.891 PERSONAL HISTORY OF NICOTINE DEPENDENCE 10/03/2018 ARIELLA PENALOZA DO Ot Z95. 5 PRESENCE OF CORONARY ANGIOPLASTY IMPLANT 12/18/[address] MD, Ot C54. 1 MALIGNANT NEOPLASM OF ENDOMETRIUM 12/18/[address] MD, Ot C56. 2 MALIGNANT NEOPLASM OF LEFT OVARY 12/18/[address] MD, Ot C78. 02 SECONDARY MALIGNANT NEOPLASM OF LEFT MASSIMO 12/18/[address] MD, Ot C78. 5 SECONDARY MALIGNANT NEOPLASM OF LARGE IN 12/18/[address] MD Ot C78. 6 SECONDARY MALIGNANT NEOPLASM OF RETROPER 12/18/[address] MD Ot C79. 89 SECONDARY MALIGNANT NEOPLASM OF OTHER SP 12/18/[address] MD Ot Z45. 2 ENCOUNTER FOR ADJUSTMENT AND MANAGEMENT 12/18/[address] MD, Ot Z85. 3 PERSONAL HISTORY OF MALIGNANT NEOPLASM O 12/19/[address] MD, Ot C54. 1 MALIGNANT NEOPLASM OF ENDOMETRIUM 12/19/[address] MD, Ot C56. 2 MALIGNANT NEOPLASM OF LEFT OVARY 12/19/[address] MD, Ot C78. 02 SECONDARY MALIGNANT NEOPLASM OF LEFT MASSIMO 12/19/[address] MD, Ot C78. 5 SECONDARY MALIGNANT NEOPLASM OF LARGE IN 12/19/[address] MD Ot C78. 6 SECONDARY MALIGNANT NEOPLASM OF RETROPER 12/19/[address] MD Ot C79. 89 SECONDARY MALIGNANT NEOPLASM OF OTHER SP 12/19/[address] MD, Ot Z45. 2 ENCOUNTER FOR ADJUSTMENT AND MANAGEMENT 12/19/[address] MD, Ot Z85. 3 PERSONAL HISTORY OF MALIGNANT NEOPLASM O 12/20/[address] MD, Ot C54. 1 MALIGNANT NEOPLASM OF ENDOMETRIUM 12/20/[address] MD, Ot C56. 2 MALIGNANT NEOPLASM OF LEFT OVARY 12/20/[address] MD, Ot C78. 02 SECONDARY MALIGNANT NEOPLASM OF LEFT MASSIMO 12/20/[address] MD, Ot C78. 5 SECONDARY MALIGNANT NEOPLASM OF LARGE IN 12/20/[address] MD, Ot C78. 6 SECONDARY MALIGNANT NEOPLASM OF RETROPER 12/20/[address] MD, Ot C79. 89 SECONDARY MALIGNANT NEOPLASM OF OTHER SP 12/20/[address] MD, Ot Z85. 3 PERSONAL HISTORY OF MALIGNANT NEOPLASM O 12/22/[address] MD, Ot C54. 1 MALIGNANT NEOPLASM OF ENDOMETRIUM 12/22/[address] MD, Ot C56. 2 MALIGNANT NEOPLASM OF LEFT OVARY 12/22/[address] MD, Ot C78. 02 SECONDARY MALIGNANT NEOPLASM OF LEFT MASSIMO 12/22/[address] MD Ot C78. 5 SECONDARY MALIGNANT NEOPLASM OF LARGE IN 12/22/[address] MD Ot C78. 6 SECONDARY MALIGNANT NEOPLASM OF RETROPER 12/22/[address] MD Ot C79. 89 SECONDARY MALIGNANT NEOPLASM OF OTHER SP 12/22/[address] MD Ot Z85. 3 PERSONAL HISTORY OF MALIGNANT NEOPLASM O 12/29/[address] MD, Ot V76. 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 9 MALIGN NEOPL BREAST NOS 12/29/[address] MD Ot V76. 11 SCRN MAMMO-HIGH RISK PT, MALIGNANT NEOPL 12/29/[address] MD Ot 183. 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 9 MALIGN NEOPL BREAST NOS 12/29/[address] MD Ot 183. 0 MALIGN NEOPL OVARY 12/29/2018 FERNY NICHOLSON MD Ot 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 12/29/2018 FERNY NICHOLSON MD Ot V72.84 EXAM PRE-OPERATIVE NOS 12/29/[address] MD Ot C50.919 MALIGNANT NEOPLASM OF UNSP SITE OF UNSPE 12/29/[address] MD Ot C56. 9 MALIGNANT NEOPLASM OF UNSPECIFIED OVARY 12/29/[address] MD Ot T85.698A [facility] COMPL OF INTERNAL PROSTH DEV/GRFT, 12/29/2018 TEODORO HERNANDEZ DO Ot Z01.818 ENCOUNTER FOR OTHER PREPROCEDURAL EXAMIN 12/29/[address] MD Ot C56. 2 MALIGNANT NEOPLASM OF LEFT OVARY 12/29/[address] MD Ot Z85. 3 PERSONAL HISTORY OF MALIGNANT NEOPLASM O 12/29/[address] MD Ot C50.919 MALIGNANT NEOPLASM OF UNSP SITE OF UNSPE 12/29/[address] MD, Ot C56. 9 MALIGNANT NEOPLASM OF UNSPECIFIED OVARY 12/29/[address] MD, Ot Z12. 31 ENCNTR SCREEN MAMMOGRAM FOR MALIGNANT NE 12/29/[address] MD, Ot C56. 1 MALIGNANT NEOPLASM OF RIGHT OVARY 12/29/[address] MD Ot N18. 9 CHRONIC KIDNEY DISEASE, UNSPECIFIED 12/29/2018 ARIELLA PENALOZA DO Ot C55 MALIGNANT NEOPLASM OF UTERUS, PART UNSPE 12/29/2018 ARIELLA PENALOZA DO Ot C56. 2 MALIGNANT NEOPLASM OF LEFT OVARY 12/29/2018 ARIELLA PENALOZA DO Ot E78. 5 HYPERLIPIDEMIA, UNSPECIFIED 12/29/2018 ARIELLA PENALOZA DO Ot G47. 33 OBSTRUCTIVE SLEEP APNEA (ADULT) (PEDIATR 12/29/2018 ARIELLA PENALOZA DO Ot I12. 9 HYPERTENSIVE CHRONIC KIDNEY DISEASE W ST 12/29/2018 ARIELLA PENALOZA DO Ot I25. 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 2 CHRONIC KIDNEY DISEASE, STAGE 2 (MILD) 12/29/2018 ARIELLA PENALOZA DO Ot T82.514A BREAKDOWN (MECHANICAL) OF INFUSION PAT 12/29/2018 ARIELLA PENALOZA DO Ot Z79. 02 CUSTODIAL (CURRENT) USE OF ANTITHROMBOTI 12/29/2018 ARIELLA PENALOZA DO Ot Z79. 82 TELLER VAULT (CURRENT) USE OF ASPIRIN 12/29/2018 ARIELLA PENALOZA DO Ot Z85. 3 PERSONAL HISTORY OF MALIGNANT NEOPLASM O 12/29/2018 ARIELLA PENALOZA DO Ot C56. 9 MALIGNANT NEOPLASM OF UNSPECIFIED OVARY 12/29/2018 ARIELLA PENALOZA DO Ot E78. 5 HYPERLIPIDEMIA, UNSPECIFIED 12/29/2018 ARIELLA PENALOZA DO Ot G47. 33 OBSTRUCTIVE SLEEP APNEA (ADULT) (PEDIATR 12/29/2018 ARIELLA PENALOZA DO Ot I12. 9 HYPERTENSIVE CHRONIC KIDNEY DISEASE W ST 12/29/2018 ARIELLA PENALOZA DO Ot I25. 10 ATHSCL HEART DISEASE OF BLACKFEET CORONARY 12/29/2018 YASH PENALOZA DOTT Norm Ot N18. 2 CHRONIC KIDNEY DISEASE, STAGE 2 (MILD) 12/29/2018 ARIELLA PENALOZA DO Ot T82.514D BREAKDOWN (MECHANICAL) OF INFUSION PAT 12/29/2018 ARIELLA PENALOZA DO Ot Z79. 02 TELLER VAULT (CURRENT) USE OF ANTITHROMBOTI 12/29/2018 ARIELLA PNEALOZA DO Ot Z79. 82 TELLER VAULT (CURRENT) USE OF ASPIRIN 12/29/2018 ARIELLA PENALOZA DO Ot Z85. 3 PERSONAL HISTORY OF MALIGNANT NEOPLASM O 12/29/[address] MD Ot C56. 1 MALIGNANT NEOPLASM OF RIGHT OVARY 12/29/[address] MD Ot Z12. 31 ENCNTR SCREEN MAMMOGRAM FOR MALIGNANT NE 12/29/2018 LAURA LIU FACC, ALI FACP CCDS Ot E66.09 OTHER OBESITY DUE TO EXCESS CALORIES 12/29/2018 LAURA LIU FACC, ALI FACP CCDS Ot E78.4 OTHER HYPERLIPIDEMIA 12/29/2018 LAURA LIU FACC, ALI FACP CCDS Ot G47.33 OBSTRUCTIVE SLEEP APNEA (ADULT) (PEDIATR 12/29/2018 LAURA LIU FACC, ALI FACP CCDS Ot I12.9 HYPERTENSIVE CHRONIC KIDNEY DISEASE W ST 12/29/2018 LAURA LIU FACC, ALI FACP CCDS Ot 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 12/29/2018 LAURA LIU FACC, ALI FACP CCDS Ot I65.23 OCCLUSION AND STENOSIS OF BILATERAL REGAN 12/29/2018 LAURA LIU FACC, ALI FACP CCDS Ot N18.2 CHRONIC KIDNEY DISEASE, STAGE 2 (MILD) 12/29/2018 LAURA LIU FACC, ALI FACP CCDS Ot R07.89 OTHER CHEST PAIN 12/29/2018 LAURA LIU FACC, ALI FACP CCDS Ot E66.09 OTHER OBESITY DUE TO EXCESS CALORIES 12/29/2018 LAURA LIU FACC, MILKA NYEP CCDS Ot E78.4 OTHER HYPERLIPIDEMIA 12/29/2018 LAURA LIU FACC, ALI FACP CCDS Ot G47.33 OBSTRUCTIVE SLEEP APNEA (ADULT) (PEDIATR 12/29/2018 LAURA LIU FACC, ALI FACP CCDS Ot I12.9 HYPERTENSIVE CHRONIC KIDNEY DISEASE W ST 12/29/2018 LAURA LIU FACC, ALI FACP CCDS Ot 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 12/29/2018 LAURA LIU FACC, ALI FACP CCDS Ot I65.23 OCCLUSION AND STENOSIS OF BILATERAL REGAN 12/29/2018 LAURA LIU FACC, ALI FACP CCDS Ot N18.2 CHRONIC KIDNEY DISEASE, STAGE 2 (MILD) 12/29/2018 LAURA LIU FACC, MILKA FACP CCDS Ot R07.89 OTHER CHEST PAIN 12/29/2018 ALFREDO CADENA Ot M85.852 OTH DISRD OF BONE DENSITY AND STRUCTURE, 12/29/2018 ALFREDO CADENA Ot M85.88 OTH DISRD OF BONE DENSITY AND STRUCTURE, 12/29/2018 ALFREDO CADENA Ot Z13.820 ENCOUNTER FOR SCREENING FOR OSTEOPOROSIS 12/29/[address] MD Ot R92. 0 MAMMOGRAPHIC MICROCALCIFICATION FOUND ON 12/29/[address] MD Ot Z12. 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 1 MAMMOGRAPHIC CALCIFCN FOUND ON DIAGNOSTI 12/29/[address] MD, Ot C56. 1 MALIGNANT NEOPLASM OF RIGHT OVARY 12/29/[address] MD Ot D05. 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 0 FATTY (CHANGE OF) LIVER, NOT ELSEWHERE C 12/29/[address] MD Ot R91. 8 OTHER NONSPECIFIC ABNORMAL FINDING OF KEVYN 12/29/[address] MD Ot C56. 1 MALIGNANT NEOPLASM OF RIGHT OVARY 12/29/[address] MD Ot D05. 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 1 SOLITARY PULMONARY NODULE 12/29/2018 CRISTY SILVER NP-C Ot D63.1 ANEMIA IN CHRONIC KIDNEY DISEASE 12/29/2018 CRISTY SILVER KENNEL ASSISTANT-C Ot E46 UNSPECIFIED PROTEIN-CALORIE MALNUTRITION 12/29/2018 CRISTY SILVER KENNEL ASSISTANT-C Ot E55.9 VITAMIN D DEFICIENCY, UNSPECIFIED 12/29/2018 CRISTY SILVER KENNEL ASSISTANT-C Ot E66.9 OBESITY, UNSPECIFIED 12/29/2018 CRISTY SILVER KENNEL ASSISTANT-C Ot E78.5 HYPERLIPIDEMIA, UNSPECIFIED 12/29/2018 CRISTY SILVER KENNEL ASSISTANT-C Ot E83.4 2 HYPOMAGNESEMIA 12/29/2018 CRISTY SILVER KENNEL ASSISTANT-C Ot E87.2 ACIDOSIS 12/29/2018 CRISTY SILVER KENNEL ASSISTANT-C Ot E87.3 ALKALOSIS 12/29/2018 CRISTY SILVER KENNEL ASSISTANT-C Ot I12.9 HYPERTENSIVE CHRONIC KIDNEY DISEASE W ST 12/29/2018 CRISTY SILVER NP-C Ot I70.1 ATHEROSCLEROSIS OF RENAL ARTERY 12/29/2018 CRISTY SILVER KENNEL ASSISTANT-C Ot N18.4 CHRONIC KIDNEY DISEASE, STAGE 4 (SEVERE) 12/29/2018 CRISTY SILVER AugustRosalio KENNEL ASSISTANT-C Ot N25.8 1 SECONDARY HYPERPARATHYROIDISM OF RENAL O 12/29/2018 CRISTY SILVER NP-C Ot R73.0 1 IMPAIRED FASTING GLUCOSE 12/29/2018 CRISTY SILVER NP-C Ot R80.9 PROTEINURIA, UNSPECIFIED 12/29/2018 KATIA PARR MD Ot C54.1 MALIGNANT NEOPLASM OF ENDOMETRIUM 12/29/2018 KATIA PARR MD, Ot C56.1 MALIGNANT NEOPLASM OF RIGHT OVARY 12/29/2018 KATIA PARR MD Ot D05.11 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 12/29/2018 KATIA PARR MD Ot K80.20 CALCULUS OF GALLBLADDER W/O CHOLECYSTITI 12/29/2018 KATIA PARR MD Ot N32.89 OTHER SPECIFIED DISORDERS OF BLADDER 12/29/[address] MD Ot C55 MALIGNANT NEOPLASM OF UTERUS, PART UNSPE 12/29/[address] MD, Ot C56. 2 MALIGNANT NEOPLASM OF LEFT OVARY 12/29/[address] MD, Ot C78. 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 89 SECONDARY MALIGNANT NEOPLASM OF OTHER SP 12/29/[address] MD, Ot D50. 0 IRON DEFICIENCY ANEMIA SECONDARY TO BLOO 12/29/[address] MD, Ot D63. 1 ANEMIA IN CHRONIC KIDNEY DISEASE 12/29/[address] MD, Ot D64. 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 0 GASTRO-ESOPHAGEAL REFLUX DISEASE WITH ES 12/29/[address] MD, Ot K44. 9 DIAPHRAGMATIC HERNIA WITHOUT OBSTRUCTION 12/29/[address] MD, Ot N18. 9 CHRONIC KIDNEY DISEASE, UNSPECIFIED 12/29/[address] MD, Ot Z51. 11 ENCOUNTER FOR ANTINEOPLASTIC CHEMOTHERAP 12/29/[address] MD, Ot Z79. 02 TELLER VAULT (CURRENT) USE OF ANTITHROMBOTI 12/29/[address] MD, Ot Z79. 82 TELLER VAULT (CURRENT) USE OF ASPIRIN 12/29/[address] MD, Ot Z85. 3 PERSONAL HISTORY OF MALIGNANT NEOPLASM O 12/29/[address] MD, Ot Z92. 21 PERSONAL HISTORY OF ANTINEOPLASTIC CHEMO 12/29/[address] MD, Ot Z95. 5 PRESENCE OF CORONARY ANGIOPLASTY IMPLANT 12/29/[address] MD, Ot T85.9XXA UNSP COMPLICATION OF INTERNAL PROSTH DEV 12/29/[address] MD, Ot C54. 1 MALIGNANT NEOPLASM OF ENDOMETRIUM 12/29/[address] MD, Ot C56. 2 MALIGNANT NEOPLASM OF LEFT OVARY 12/29/[address] MD, Ot C78. 02 SECONDARY MALIGNANT NEOPLASM OF LEFT MASSIMO 12/29/[address] MD, Ot C78. 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 89 SECONDARY MALIGNANT NEOPLASM OF OTHER SP 12/29/[address] MD, Ot Z85. 3 PERSONAL HISTORY OF MALIGNANT NEOPLASM O 12/29/[address] MD, Ot V76. 12 OTH SCREEN MAMMO-MALIGN NEOPLASM OF JORGE LUIS 12/29/2018 FERNY NICHOLSON MD Ot V72.84 EXAM PRE-OPERATIVE NOS 12/29/2018 FERNY NICHOLSON MD Ot V72.84 EXAM PRE-OPERATIVE NOS 12/29/2018 FERNY NICHOLSON MD Ot V72.84 EXAM PRE-OPERATIVE NOS 12/29/2018 ALFREDO CADENA Ot 585.3 CHRONIC KIDNEY DISEASE, STAGE III (MODER 12/29/2018 ALFREDO CADENA Ot 793.5 NOSP (ABN) FINDINGS ON RADIOLOGICAL OT 12/29/2018 FERNY NICHOLSON MD Ot 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 12/29/2018 FERNY NICHOLSON MD Ot V72.84 EXAM PRE-OPERATIVE NOS 12/29/[address] MD Ot 174. 9 MALIGN NEOPL BREAST NOS 12/29/[address] MD Ot V76. 11 SCRN MAMMO-HIGH RISK PT, MALIGNANT NEOPL 12/29/[address] MD Ot 183. 0 MALIGN NEOPL OVARY 12/29/2018 BAIMA, NALINI L REFRIGERATOR ROOM CLERK Ot 272.4 HYPERLIPIDEMIA NEC/NOS 12/29/2018 BAIMA, NALINI L REFRIGERATOR ROOM CLERK Ot 401.9 HYPERTENSION NOS 12/29/2018 BAIMA, NALINI L REFRIGERATOR ROOM CLERK Ot 414.9 CHR ISCHEMIC HRT DIS NOS 12/29/2018 CORYMA, NALINI L REFRIGERATOR ROOM CLERK Ot 437.9 CEREBROVASC DISEASE NOS 12/29/2018 BAIMA, NALINI L REFRIGERATOR ROOM CLERK Ot 272.4 HYPERLIPIDEMIA NEC/NOS 12/29/2018 CORYMA, NALINI L REFRIGERATOR ROOM CLERK Ot 401.9 HYPERTENSION NOS 12/29/2018 BAIMA, NALINI L REFRIGERATOR ROOM CLERK Ot 414.00 CORON ATHEROSCLER NOS TYPE VESSEL, NATIV 12/29/2018 CORYMA, NALINI L REFRIGERATOR ROOM CLERK Ot 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 9 MALIGN NEOPL BREAST NOS 12/29/[address] MD Ot 183. 0 MALIGN NEOPL OVARY 12/29/2018 FERNY NICHOLSON MD Ot 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 12/29/2018 FERNY NICHOLSON MD Ot V72.84 EXAM PRE-OPERATIVE NOS 12/29/[address] MD Ot C50.919 MALIGNANT NEOPLASM OF UNSP SITE OF UNSPE 12/29/[address] MD Ot C56. 9 MALIGNANT NEOPLASM OF UNSPECIFIED OVARY 12/29/[address] MD Ot T85.698A [facility] COMPL OF INTERNAL PROSTH DEV/GRFT, 12/29/2018 TEODORO HERNANDEZ DO Ot Z01.818 ENCOUNTER FOR OTHER PREPROCEDURAL EXAMIN 12/29/[address] MD, Ot C56. 2 MALIGNANT NEOPLASM OF LEFT OVARY 12/29/[address] MD Ot Z85. 3 PERSONAL HISTORY OF MALIGNANT NEOPLASM O 12/29/[address] MD Ot C50.919 MALIGNANT NEOPLASM OF UNSP SITE OF UNSPE 12/29/[address] MD Ot C56. 9 MALIGNANT NEOPLASM OF UNSPECIFIED OVARY 12/29/[address] MD Ot Z12. 31 ENCNTR SCREEN MAMMOGRAM FOR MALIGNANT NE 12/29/[address] MD Ot C56. 1 MALIGNANT NEOPLASM OF RIGHT OVARY 12/29/[address] MD Ot N18. 9 CHRONIC KIDNEY DISEASE, UNSPECIFIED 12/29/2018 ARIELLA PENALOZA DO Ot C55 MALIGNANT NEOPLASM OF UTERUS, PART UNSPE 12/29/2018 ARIELLA PENALOZA DO Ot C56. 2 MALIGNANT NEOPLASM OF LEFT OVARY 12/29/2018 ARIELLA PENALOZA DO D Ot E78. 5 HYPERLIPIDEMIA, UNSPECIFIED 12/29/2018 ARIELLA PENALOZA DO D Ot G47. 33 OBSTRUCTIVE SLEEP APNEA (ADULT) (PEDIATR 12/29/2018 ARIELLA PENALOZA DO D Ot I12. 9 HYPERTENSIVE CHRONIC KIDNEY DISEASE W ST 12/29/2018 ARIELLA PENALOZA DO D Ot I25. 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 2 CHRONIC KIDNEY DISEASE, STAGE 2 (MILD) 12/29/2018 ARIELLA PENALOZA DO Ot T82.514A BREAKDOWN (MECHANICAL) OF INFUSION PAT 12/29/2018 ARIELLA PENALOZA DO Ot Z79. 02 CUSTODIAL (CURRENT) USE OF ANTITHROMBOTI 12/29/2018 ARIELLA PENALOZA DO D Ot Z79. 82 CUSTODIAL (CURRENT) USE OF ASPIRIN 12/29/2018 ARIELLA PENALOZA DO Ot Z85. 3 PERSONAL HISTORY OF MALIGNANT NEOPLASM O 12/29/2018 ARIELLA PENALOZA DO Ot C56. 9 MALIGNANT NEOPLASM OF UNSPECIFIED OVARY 12/29/2018 ARIELLA PENALOZA DO D Ot E78. 5 HYPERLIPIDEMIA, UNSPECIFIED 12/29/2018 YASH PENALOZA DOTT D Ot G47. 33 OBSTRUCTIVE SLEEP APNEA (ADULT) (PEDIATR 12/29/2018 YASH PENALOZA DOTT D Ot I12. 9 HYPERTENSIVE CHRONIC KIDNEY DISEASE W ST 12/29/2018 CA LARIOS ARIELLA Norm Ot I25. 10 ATHSCL HEART DISEASE OF BLACKFEET CORONARY 12/29/2018 CA LARIOS ARIELLA Norm Ot N18. 2 CHRONIC KIDNEY DISEASE, STAGE 2 (MILD) 12/29/2018 CA LARIOS ARIELLA Zheng Ot T82.514D BREAKDOWN (MECHANICAL) OF INFUSION PAT 12/29/2018 CA LARIOS ARIELLA Norm Ot Z79. 02 CUSTODIAL (CURRENT) USE OF ANTITHROMBOTI 12/29/2018 PENALOZA ARIELLA Norm Ot Z79. 82 CUSTODIAL (CURRENT) USE OF ASPIRIN 12/29/2018 CA LARIOS ARIELLA Zheng Ot Z85. 3 PERSONAL HISTORY OF MALIGNANT NEOPLASM O 12/29/2018 JAD LIU, DANA Ot C56. 1 MALIGNANT NEOPLASM OF RIGHT OVARY 12/29/2018 JAD LIU, DANA Ot Z12. 31 ENCNTR SCREEN MAMMOGRAM FOR MALIGNANT NE 12/29/2018 LAURA LIU FACC, MILKA FACP CCDS Ot E66.09 OTHER OBESITY DUE TO EXCESS CALORIES 12/29/2018 LAURA LIU FACC, ALI FACP CCDS Ot E78.4 OTHER HYPERLIPIDEMIA 12/29/2018 LAURA LIU FACC, ALI FACP CCDS Ot G47.33 OBSTRUCTIVE SLEEP APNEA (ADULT) (PEDIATR 12/29/2018 LAURA LIU FACC, ALI FACP CCDS Ot I12.9 HYPERTENSIVE CHRONIC KIDNEY DISEASE W ST 12/29/2018 LAURA LIU FACC, ALI FACP CCDS Ot 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 12/29/2018 LAURA LIU FACC, ALI FACP CCDS Ot I65.23 OCCLUSION AND STENOSIS OF BILATERAL REGAN 12/29/2018 LAURA LIU FACC, ALI FACP CCDS Ot N18.2 CHRONIC KIDNEY DISEASE, STAGE 2 (MILD) 12/29/2018 LAURA LIU FACC, ALI FACP CCDS Ot R07.89 OTHER CHEST PAIN 12/29/2018 LAURA LIU FACC, ALI FACP CCDS Ot E66.09 OTHER OBESITY DUE TO EXCESS CALORIES 12/29/2018 LAURA LIU FACC, ALI FACP CCDS Ot E78.4 OTHER HYPERLIPIDEMIA 12/29/2018 LAURA LIU FACC, ALI FACP CCDS Ot G47.33 OBSTRUCTIVE SLEEP APNEA (ADULT) (PEDIATR 12/29/2018 LAURA LIU FACC, MILKA NYEP CCDS Ot I12.9 HYPERTENSIVE CHRONIC KIDNEY DISEASE W ST 12/29/2018 LAURA LIU FACC, MILKA FACP CCDS Ot 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 12/29/2018 LAURA LIU FACC, ALI FACP CCDS Ot I65.23 OCCLUSION AND STENOSIS OF BILATERAL REGAN 12/29/2018 LAURA LIU FACC, MILKA [facility] CCD[facility] Ot N18.2 CHRONIC KIDNEY DISEASE, STAGE 2 (MILD) 12/29/2018 LAURA LIU FACC, MILKA [facility] CCDS Ot R07.89 OTHER CHEST PAIN 12/29/2018 ALFREDO CADENA Ot M85.852 OT DISRD OF BONE DENSITY AND STRUCTURE, 12/29/2018 ALFREDO CADENA Ot M85.88 OTH DISRD OF BONE DENSITY AND STRUCTURE, 12/29/2018 ALFREDO CADENA Ot Z13.820 ENCOUNTER FOR SCREENING FOR OSTEOPOROSIS 12/29/[address] MD Ot R92. 0 MAMMOGRAPHIC MICROCALCIFICATION FOUND ON 12/29/[address] MD Ot Z12. 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 1 MAMMOGRAPHIC CALCIFCN FOUND ON DIAGNOSTI 12/29/[address] MD, Ot C56. 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 0 FATTY (CHANGE OF) LIVER, NOT ELSEWHERE C 12/29/[address] MD Ot R91. 8 OTHER NONSPECIFIC ABNORMAL FINDING OF KEVYN 12/29/[address] MD, Ot C56. 1 MALIGNANT NEOPLASM OF RIGHT OVARY 12/29/[address] MD Ot D05. 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 1 SOLITARY PULMONARY NODULE 12/29/2018 RCISTY SILVER NP-C Ot D63.1 ANEMIA IN CHRONIC KIDNEY DISEASE 12/29/2018 CRISTY SILVER KENNEL ASSISTANT-C Ot E46 UNSPECIFIED PROTEIN-CALORIE MALNUTRITION 12/29/2018 CRISTY SILVER KENNEL ASSISTANT-C Ot E55.9 VITAMIN D DEFICIENCY, UNSPECIFIED 12/29/2018 CRISTY SILVER KENNEL ASSISTANT-C Ot E66.9 OBESITY, UNSPECIFIED 12/29/2018 NEWCRISTY KENNEL ASSISTANT-C Ot E78.5 HYPERLIPIDEMIA, UNSPECIFIED 12/29/2018 NEWCRISTY KENNEL ASSISTANT-C Ot E83.4 2 HYPOMAGNESEMIA 12/29/2018 NEWCRISTY KENNEL ASSISTANT-C Ot E87.2 ACIDOSIS 12/29/2018 NEWCRISTY KENNEL ASSISTANT-C Ot E87.3 ALKALOSIS 12/29/2018 CRISTY SILVER KENNEL ASSISTANT-C Ot I12.9 HYPERTENSIVE CHRONIC KIDNEY DISEASE W ST 12/29/2018 CRISTY SILVER KENNEL ASSISTANT-C Ot I70.1 ATHEROSCLEROSIS OF RENAL ARTERY 12/29/2018 CRISTY SILVER Ot N18.4 CHRONIC KIDNEY DISEASE, STAGE 4 (SEVERE) 12/29/2018 CRISTY SILVER Ot N25.8 1 SECONDARY HYPERPARATHYROIDISM OF RENAL O 12/29/2018 CRISTY SILVER Ot R73.0 1 IMPAIRED FASTING GLUCOSE 12/29/2018 CRISTY SILVER NP-Sherine Ot R80.9 PROTEINURIA, UNSPECIFIED 12/29/2018 KATIA PARR MD, Ot C54.1 MALIGNANT NEOPLASM OF ENDOMETRIUM 12/29/2018 KATIA PARR MD, Ot C56.1 MALIGNANT NEOPLASM OF RIGHT OVARY 12/29/2018 KATIA PARR MD, Ot D05.11 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 12/29/2018 KATIA PARR MD, Ot K80.20 CALCULUS OF GALLBLADDER W/O CHOLECYSTITI 12/29/2018 KATIA PARR MD, Ot N32.89 OTHER SPECIFIED DISORDERS OF BLADDER 12/29/[address] MD, Ot C55 MALIGNANT NEOPLASM OF UTERUS, PART UNSPE 12/29/[address] MD, Ot C56. 2 MALIGNANT NEOPLASM OF LEFT OVARY 12/29/[address] MD, Ot C78. 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 89 SECONDARY MALIGNANT NEOPLASM OF OTHER SP 12/29/[address] MD, Ot D50. 0 IRON DEFICIENCY ANEMIA SECONDARY TO BLOO 12/29/[address] MD, Ot D63. 1 ANEMIA IN CHRONIC KIDNEY DISEASE 12/29/[address] MD, Ot D64. 81 ANEMIA DUE TO ANTINEOPLASTIC CHEMOTHERAP 12/29/[address] MD, Ot I25. 10 ATHSCL HEART DISEASE OF [place] CORONARY 12/29/[address] MD, Ot K21. 0 GASTRO-ESOPHAGEAL REFLUX DISEASE WITH ES 12/29/[address] MD, Ot K44. 9 DIAPHRAGMATIC HERNIA WITHOUT OBSTRUCTION 12/29/[address] MD, Ot N18. 9 CHRONIC KIDNEY DISEASE, UNSPECIFIED 12/29/[address] MD, Ot Z51. 11 ENCOUNTER FOR ANTINEOPLASTIC CHEMOTHERAP 12/29/[address] MD, Ot Z79. 02 CUSTODIAL (CURRENT) USE OF ANTITHROMBOTI 12/29/[address] MD, Ot Z79. 82 TELLER VAULT (CURRENT) USE OF ASPIRIN 12/29/[address] MD, Ot Z85. 3 PERSONAL HISTORY OF MALIGNANT NEOPLASM O 12/29/[address] MD, Ot Z92. 21 PERSONAL HISTORY OF ANTINEOPLASTIC CHEMO 12/29/[address] MD, Ot Z95. 5 PRESENCE OF CORONARY ANGIOPLASTY IMPLANT 12/29/[address] MD, Ot T85.9XXA UNSP COMPLICATION OF INTERNAL PROSTH DEV 12/29/[address] MD, Ot C54. 1 MALIGNANT NEOPLASM OF ENDOMETRIUM 12/29/[address] MD, Ot C56. 2 MALIGNANT NEOPLASM OF LEFT OVARY 12/29/[address] MD, Ot C78. 02 SECONDARY MALIGNANT NEOPLASM OF LEFT [place] 12/29/[address] MD, Ot C78. 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 89 SECONDARY MALIGNANT NEOPLASM OF OTHER SP 12/29/[address] MD, Ot Z85. 3 PERSONAL HISTORY OF MALIGNANT NEOPLASM O 01/18/[address] MD Ot D05. 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 11 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 01/19/[address] MD, Ot T85.9XXA UNSP COMPLICATION OF INTERNAL PROSTH DEV 02/03/[address] MD, Ot V76. 12 OTH SCREEN MAMMO-MALIGN NEOPLASM OF JORGE LUIS 02/03/2019 FERNY NICHOLSON MD Ot V72.84 EXAM PRE-OPERATIVE NOS 02/03/2019 FERNY NICHOLSON MD Ot V72.84 EXAM PRE-OPERATIVE NOS 02/03/2019 FERNY NICHOLSON MD Ot V72.84 EXAM PRE-OPERATIVE NOS 02/03/2019 ALFREDO CADENA Ot 585.3 CHRONIC KIDNEY DISEASE, STAGE III (MODER 02/03/2019 MAGDALENA CHOW, ALFREDO K Ot 793.5 NOSP (ABN) FINDINGS ON RADIOLOGICAL OT 02/03/2019 FERNY NICHOLSON MD Ot 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 02/03/2019 FERNY NICHOLSON MD Ot V72.84 EXAM PRE-OPERATIVE NOS 02/03/[address] MD Ot 174. 9 MALIGN NEOPL BREAST NOS 02/03/[address] MD Ot V76. 11 SCRN MAMMO-HIGH RISK PT, MALIGNANT NEOPL 02/03/[address] MD Ot 183. 0 MALIGN NEOPL OVARY 02/03/2019 BAIMA, NALINI L REFRIGERATOR ROOM CLERK Ot 272.4 HYPERLIPIDEMIA NEC/NOS 02/03/2019 BAIMA, NALINI L REFRIGERATOR ROOM CLERK Ot 401.9 HYPERTENSION NOS 02/03/2019 BAIMA, NALINI L REFRIGERATOR ROOM CLERK Ot 414.9 CHR ISCHEMIC HRT DIS NOS 02/03/2019 BAIMA, NALINI L REFRIGERATOR ROOM CLERK Ot 437.9 CEREBROVASC DISEASE NOS 02/03/2019 BAIMA, NALINI L REFRIGERATOR ROOM CLERK Ot 272.4 HYPERLIPIDEMIA NEC/NOS 02/03/2019 BAIMA, NALINI L REFRIGERATOR ROOM CLERK Ot 401.9 HYPERTENSION NOS 02/03/2019 BAIMA, NALINI L REFRIGERATOR ROOM CLERK Ot 414.00 CORON ATHEROSCLER NOS TYPE VESSEL, NATIV 02/03/2019 CORYMA, NALINI L REFRIGERATOR ROOM CLERK Ot 437.9 CEREBROVASC DISEASE NOS 02/03/[address] MD Ot 174. 9 MALIGN NEOPL BREAST NOS 02/03/[address] MD Ot 183. 0 MALIGN NEOPL OVARY 02/03/2019 FERNY NICHOLSON MD Ot 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 02/03/2019 FERNY NICHOLSON MD Ot V72.84 EXAM PRE-OPERATIVE NOS 02/03/[address] MD Ot C50.919 MALIGNANT NEOPLASM OF UNSP SITE OF UNSPE 02/03/[address] MD Ot C56. 9 MALIGNANT NEOPLASM OF UNSPECIFIED OVARY 02/03/[address] MD Ot T85.698A [facility] COMPL OF INTERNAL PROSTH DEV/GRFT, 02/03/2019 TEODORO HERNANDEZ DO Ot Z01.818 ENCOUNTER FOR OTHER PREPROCEDURAL EXAMIN 02/03/[address] MD Ot C56. 2 MALIGNANT NEOPLASM OF LEFT OVARY 02/03/[address] MD Ot Z85. 3 PERSONAL HISTORY OF MALIGNANT NEOPLASM O 02/03/[address] MD Ot C50.919 MALIGNANT NEOPLASM OF UNSP SITE OF UNSPE 02/03/[address] MD, Ot C56. 9 MALIGNANT NEOPLASM OF UNSPECIFIED OVARY 02/03/[address] MD Ot Z12. 31 ENCNTR SCREEN MAMMOGRAM FOR MALIGNANT NE 02/03/[address] MD, Ot C56. 1 MALIGNANT NEOPLASM OF RIGHT OVARY 02/03/[address] MD Ot N18. 9 CHRONIC KIDNEY DISEASE, UNSPECIFIED 02/03/2019 ARIELLA PENALOZA DO Ot C55 MALIGNANT NEOPLASM OF UTERUS, PART UNSPE 02/03/2019 ARIELLA PENALOZA DO Ot C56. 2 MALIGNANT NEOPLASM OF LEFT OVARY 02/03/2019 ARIELLA PENALOZA DO Ot E78. 5 HYPERLIPIDEMIA, UNSPECIFIED 02/03/2019 ARIELLA PENALOZA DO Ot G47. 33 OBSTRUCTIVE SLEEP APNEA (ADULT) (PEDIATR 02/03/2019 ARIELLA PENALOZA DO Ot I12. 9 HYPERTENSIVE CHRONIC KIDNEY DISEASE W ST 02/03/2019 ARIELLA PENALOZA DO Ot I25. 10 ATHSCL HEART DISEASE OF BLACKFEET CORONARY 02/03/2019 ARIELLA PENALOZA DO Ot N18. 2 CHRONIC KIDNEY DISEASE, STAGE 2 (MILD) 02/03/2019 ARIELLA PENALOZA DO Ot T82.514A BREAKDOWN (MECHANICAL) OF INFUSION PAT 02/03/2019 ARIELLA PENALOZA DO Ot Z79. 02 TELLER VAULT (CURRENT) USE OF ANTITHROMBOTI 02/03/2019 ARIELLA PENALOZA DO Ot Z79. 82 TELLER VAULT (CURRENT) USE OF ASPIRIN 02/03/2019 ARIELLA PENALOZA DO Ot Z85. 3 PERSONAL HISTORY OF MALIGNANT NEOPLASM O 02/03/2019 ARIELLA PENALOZA DO Ot C56. 9 MALIGNANT NEOPLASM OF UNSPECIFIED OVARY 02/03/2019 ARIELLA PENALOZA DO Ot E78. 5 HYPERLIPIDEMIA, UNSPECIFIED 02/03/2019 ARIELLA PENALOZA DO Ot G47. 33 OBSTRUCTIVE SLEEP APNEA (ADULT) (PEDIATR 02/03/2019 [facility]12. 9 HYPERTENSIVE CHRONIC KIDNEY DISEASE W ST 02/03/2019 [place] LARIOS ARIELLA Norm Ot I25. 10 ATHSCL HEART DISEASE OF BLACKFEET CORONARY 02/03/2019 PENALOZA DOYASHTT D Ot N18. 2 CHRONIC KIDNEY DISEASE, STAGE 2 (MILD) 02/03/2019 [facility] Ot T82.514D BREAKDOWN (MECHANICAL) OF INFUSION PAT 02/03/2019 [facility] Ot Z79. 02 CUSTODIAL (CURRENT) USE OF ANTITHROMBOTI 02/03/2019 [facility] Ot Z79. 82 TELLER VAULT (CURRENT) USE OF ASPIRIN 02/03/2019 PENALOZA DOARIELLA Ot Z85. 3 PERSONAL HISTORY OF MALIGNANT NEOPLASM O 02/03/[address] MD Ot C56. 1 MALIGNANT NEOPLASM OF RIGHT OVARY 02/03/[address] MD Ot Z12. 31 ENCNTR SCREEN MAMMOGRAM FOR MALIGNANT NE 02/03/2019 LAURA LIU FACC, MILKA FACP CCDS Ot E66.09 OTHER OBESITY DUE TO EXCESS CALORIES 02/03/2019 LAURA LIU FACC, ALI FACP CCDS Ot E78.4 OTHER HYPERLIPIDEMIA 02/03/2019 LAURA LIU FACC, ALI FACP CCDS Ot G47.33 OBSTRUCTIVE SLEEP APNEA (ADULT) (PEDIATR 02/03/2019 LAURA LIU FACC, MILKA FACP CCDS Ot I12.9 HYPERTENSIVE CHRONIC KIDNEY DISEASE W ST 02/03/2019 LAURA LIU FACC, ALI FACP CCDS Ot 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 02/03/2019 LAURA LIU FACC, ALI FACP CCDS Ot I65.23 OCCLUSION AND STENOSIS OF BILATERAL REGAN 02/03/2019 LAURA LIU FACC, ALI FACP CCDS Ot N18.2 CHRONIC KIDNEY DISEASE, STAGE 2 (MILD) 02/03/2019 LAURA LIU FACC, ALI FACP CCDS Ot R07.89 OTHER CHEST PAIN 02/03/2019 LAURA LIU FACC, ALI FACP CCDS Ot E66.09 OTHER OBESITY DUE TO EXCESS CALORIES 02/03/2019 LAURA LIU FACC, ALI FACP CCDS Ot E78.4 OTHER HYPERLIPIDEMIA 02/03/2019 LAURA LIU FACC, MILKA NYEP CCDS Ot G47.33 OBSTRUCTIVE SLEEP APNEA (ADULT) (PEDIATR 02/03/2019 LAURA LIU FACC, MILKA FACP CCDS Ot I12.9 HYPERTENSIVE CHRONIC KIDNEY DISEASE W ST 02/03/2019 LAURA LIU FACC, ALI FACP CCDS Ot 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 02/03/2019 LAURA LIU FACC, MILKA FACP CCDS Ot I65.23 OCCLUSION AND STENOSIS OF BILATERAL REGAN 02/03/2019 LAURA LIU FACC, MILKA FACP CCDS Ot N18.2 CHRONIC KIDNEY DISEASE, STAGE 2 (MILD) 02/03/2019 LAURA LIU FACC, MILKA FACP CCDS Ot R07.89 OTHER CHEST PAIN 02/03/2019 ALFREDO CADENA Ot M85.852 OTH DISRD OF BONE DENSITY AND STRUCTURE, 02/03/2019 ALFREDO CADENA Ot M85.88 OTH DISRD OF BONE DENSITY AND STRUCTURE, 02/03/2019 ALFREDO CADENA Ot Z13.820 ENCOUNTER FOR SCREENING FOR OSTEOPOROSIS 02/03/[address] MD Ot R92. 0 MAMMOGRAPHIC MICROCALCIFICATION FOUND ON 02/03/[address] MD Ot Z12. 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 KENNEL ASSISTANT-C Ot I70.1 ATHEROSCLEROSIS OF RENAL ARTERY 02/03/2019 NEW, CRISTY Ross KENNEL ASSISTANT-C Ot N18.4 CHRONIC KIDNEY DISEASE, STAGE 4 (SEVERE) 02/03/2019 CRISTY SILVER KENNEL ASSISTANT-C Ot N25.8 1 SECONDARY HYPERPARATHYROIDISM OF RENAL O 02/03/2019 CRISTY SILVER NP-C Ot R73.0 1 IMPAIRED FASTING GLUCOSE 02/03/2019 CRISTY SILVER NP-C Ot R80.9 PROTEINURIA, UNSPECIFIED 02/03/[address] MD Ot R92. 1 MAMMOGRAPHIC CALCIFCN FOUND ON DIAGNOSTI 02/03/[address] MD, Ot C56. 1 MALIGNANT NEOPLASM OF RIGHT OVARY 02/03/[address] MD, Ot D05. 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 0 FATTY (CHANGE OF) LIVER, NOT ELSEWHERE C 02/03/[address] MD Ot R91. 8 OTHER NONSPECIFIC ABNORMAL FINDING OF KEVYN 02/03/[address] MD Ot C56. 1 MALIGNANT NEOPLASM OF RIGHT OVARY 02/03/[address] MD Ot D05. 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 1 SOLITARY PULMONARY NODULE 02/03/2019 ADRIANNE, CRISTY Ross NP-C Ot D63.1 ANEMIA IN CHRONIC KIDNEY DISEASE 02/03/2019 NEW, CRISTY Ross NP-C Ot E46 UNSPECIFIED PROTEIN-CALORIE MALNUTRITION 02/03/2019 NEWCRISTY KENNEL ASSISTANT-C Ot E55.9 VITAMIN D DEFICIENCY, UNSPECIFIED 02/03/2019 NEWCRISTY NP-C Ot E66.9 OBESITY, UNSPECIFIED 02/03/2019 NEW, CRISTY Ross KENNEL ASSISTANT-C Ot E78.5 HYPERLIPIDEMIA, UNSPECIFIED 02/03/2019 CRISTY SILVER KENNEL ASSISTANT-C Ot E83.4 2 HYPOMAGNESEMIA 02/03/2019 NEWCRISTY KENNEL ASSISTANT-C Ot E87.2 ACIDOSIS 02/03/2019 NEWCRISTY KENNEL ASSISTANT-C Ot E87.3 ALKALOSIS 02/03/2019 ADRIANNE, CRISTY Ross KENNEL ASSISTANT-C Ot I12.9 HYPERTENSIVE CHRONIC KIDNEY DISEASE W ST 02/03/2019 CRISTY SILVER Ot I70.1 ATHEROSCLEROSIS OF RENAL ARTERY 02/03/2019 CRISTY SILVER Ot N18.4 CHRONIC KIDNEY DISEASE, STAGE 4 (SEVERE) 02/03/2019 CRISTY SILVER NP-C Ot N25.8 1 SECONDARY HYPERPARATHYROIDISM OF RENAL O 02/03/2019 CRISTY SILVER Ot R73.0 1 IMPAIRED FASTING GLUCOSE 02/03/2019 CRISTY SILVER Ot R80.9 PROTEINURIA, UNSPECIFIED 02/03/2019 KATIA PARR MD, Ot C54.1 MALIGNANT NEOPLASM OF ENDOMETRIUM 02/03/2019 KATIA PARR MD, Ot C56.1 MALIGNANT NEOPLASM OF RIGHT OVARY 02/03/2019 KATIA PARR MD, Ot D05.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 2 MALIGNANT NEOPLASM OF LEFT OVARY 02/03/[address] MD, Ot C78. 5 SECONDARY MALIGNANT NEOPLASM OF LARGE IN 02/03/[address] MD, Ot C78. 6 SECONDARY MALIGNANT NEOPLASM OF RETROPER 02/03/[address] MD, Ot C79. 89 SECONDARY MALIGNANT NEOPLASM OF OTHER SP 02/03/[address] MD, Ot D50. 0 IRON DEFICIENCY ANEMIA SECONDARY TO BLOO 02/03/[address] MD, Ot D63. 1 ANEMIA IN CHRONIC KIDNEY DISEASE 02/03/[address] MD, Ot D64. 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 0 GASTRO-ESOPHAGEAL REFLUX DISEASE WITH ES 02/03/[address] MD, Ot K44. 9 DIAPHRAGMATIC HERNIA WITHOUT OBSTRUCTION 02/03/[address] MD, Ot N18. 9 CHRONIC KIDNEY DISEASE, UNSPECIFIED 02/03/[address] MD, Ot Z51. 11 ENCOUNTER FOR ANTINEOPLASTIC CHEMOTHERAP 02/03/[address] MD, Ot Z79. 02 TELLER VAULT (CURRENT) USE OF ANTITHROMBOTI 02/03/[address] MD, Ot Z79. 82 CUSTODIAL (CURRENT) USE OF ASPIRIN 02/03/[address] MD, Ot Z85. 3 PERSONAL HISTORY OF MALIGNANT NEOPLASM O 02/03/[address] MD, Ot Z92. 21 PERSONAL HISTORY OF ANTINEOPLASTIC CHEMO 02/03/[address] MD, Ot Z95. 5 PRESENCE OF CORONARY ANGIOPLASTY IMPLANT 02/03/[address] MD, Ot T85.9XXA UNSP COMPLICATION OF INTERNAL PROSTH DEV 02/03/[address] MD, Ot C54. 1 MALIGNANT NEOPLASM OF ENDOMETRIUM 02/03/[address] MD, Ot C56. 2 MALIGNANT NEOPLASM OF LEFT OVARY 02/03/[address] MD, Ot C78. 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 5 SECONDARY MALIGNANT NEOPLASM OF LARGE IN 02/03/[address] MD, Ot C78. 6 SECONDARY MALIGNANT NEOPLASM OF RETROPER 02/03/[address] MD, Ot C79. 89 SECONDARY MALIGNANT NEOPLASM OF OTHER SP 02/03/[address] MD, Ot Z85. 3 PERSONAL HISTORY OF MALIGNANT NEOPLASM O 02/03/[address] MD, Ot D05. 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 1 MALIGNANT NEOPLASM OF ENDOMETRIUM 03/20/[address] MD, Ot C56. 2 MALIGNANT NEOPLASM OF LEFT OVARY 03/20/[address] MD, Ot C78. 02 SECONDARY MALIGNANT NEOPLASM OF LEFT MASSIMO 03/20/[address] MD, Ot C78. 5 SECONDARY MALIGNANT NEOPLASM OF LARGE IN 03/20/[address] MD, Ot C78. 6 SECONDARY MALIGNANT NEOPLASM OF RETROPER 03/20/[address] MD, Ot C79. 89 SECONDARY MALIGNANT NEOPLASM OF OTHER SP 03/20/[address] MD Ot Z85. 3 PERSONAL HISTORY OF MALIGNANT NEOPLASM O 03/22/[address] MD Ot C54. 1 MALIGNANT NEOPLASM OF ENDOMETRIUM 03/22/[address] MD Ot C56. 2 MALIGNANT NEOPLASM OF LEFT OVARY 03/22/[address] MD Ot C78. 02 SECONDARY MALIGNANT NEOPLASM OF LEFT MASSIMO 03/22/[address] MD Ot C78. 5 SECONDARY MALIGNANT NEOPLASM OF LARGE IN 03/22/[address] MD Ot C78. 6 SECONDARY MALIGNANT NEOPLASM OF RETROPER 03/22/[address] MD Ot C79. 89 SECONDARY MALIGNANT NEOPLASM OF OTHER SP 03/22/[address] MD Ot Z85. 3 PERSONAL HISTORY OF MALIGNANT NEOPLASM O 06/19/[address] MD, Ot C54. 1 MALIGNANT NEOPLASM OF ENDOMETRIUM 06/19/[address] MD Ot C56. 2 MALIGNANT NEOPLASM OF LEFT OVARY 06/19/[address] MD Ot C78. 02 SECONDARY MALIGNANT NEOPLASM OF LEFT MASSIMO 06/19/[address] MD Ot C78. 5 SECONDARY MALIGNANT NEOPLASM OF LARGE IN 06/19/[address] MD Ot C78. 6 SECONDARY MALIGNANT NEOPLASM OF RETROPER 06/19/[address] MD Ot C79. 89 SECONDARY MALIGNANT NEOPLASM OF OTHER SP 06/19/[address] MD Ot Z85. 3 PERSONAL HISTORY OF MALIGNANT NEOPLASM O 08/18/2019 GUICHO LAUGHLIN MD Ot D49. 6 NEOPLASM OF UNSPECIFIED BEHAVIOR OF BRAI 08/18/2019 GUICHO LAUGHLIN MD, Ot D64. 9 ANEMIA, UNSPECIFIED 08/18/2019 GUICHO LAUGHLIN MD Ot E78. 00 PURE HYPERCHOLESTEROLEMIA, UNSPECIFIED 08/18/2019 GUICHO LAUGHLIN MD Ot F32. 9 MAJOR DEPRESSIVE DISORDER, SINGLE EPISOD 08/18/2019 GUICHO LAUGHLIN MD, Ot F41. 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 9 GASTRO-ESOPHAGEAL REFLUX DISEASE WITHOUT 08/18/2019 TRUMAN LIU, GUICHO Gordon Ot R40.2142 COMA SCALE, EYES OPEN, SPONTANEOUS, EMR 08/18/2019 TRUMAN LIU, GUICOH Gordon Ot R40.2252 COMA SCALE, BEST VERBAL RESPONSE, ORIENT 08/18/2019 GUICHO LAUGHLIN MD Ot R40.2362 COMA SCALE, BEST MOTOR RESPONSE, OBEYS C 08/18/2019 TRUMAN LIU, GUICHO Gordon Ot S09.90XA UNSPECIFIED INJURY OF HEAD, INITIAL ENCO 08/18/2019 GUICHO LAUGHLIN MD Ot W19.XXXA UNSPECIFIED FALL, INITIAL ENCOUNTER 08/18/2019 TRUMAN LIU, GUICHO Gordon Ot W22.8XXA STRIKING AGAINST OR STRUCK BY OTHER OBJE 08/18/2019 GUICHO LAUGHLIN MD Ot Z79. 02 CUSTODIAL (CURRENT) USE OF ANTITHROMBOTI 08/18/2019 GUICHO LAUGHLIN MD Ot Z85. 3 PERSONAL HISTORY OF MALIGNANT NEOPLASM O 08/18/2019 GUICHO LAUGHLIN MD Ot Z85. 43 PERSONAL HISTORY OF MALIGNANT NEOPLASM O 08/18/2019 GUICHO LAUGHLIN MD Ot Z85. 44 PERSONAL HISTORY OF MALIG NEOPLASM OF FE 08/18/2019 TRUMAN LIU, GUICHO Gordon Ot Z88. 0 ALLERGY STATUS TO PENICILLIN 08/18/2019 GUICHO LAUGHLIN MD Ot Z90.710 ACQUIRED ABSENCE OF BOTH CERVIX AND UTER 08/18/2019 GUICHO LAUGHLIN MD Ot Z91.041 RADIOGRAPHIC DYE ALLERGY STATUS 08/18/2019 GUICHO LAUGHLIN MD Ot Z95. 5 PRESENCE OF CORONARY ANGIOPLASTY IMPLANT 08/18/2019 FERNY NICHOLSON MD Ot V72.84 EXAM PRE-OPERATIVE NOS 08/18/2019 ALFREDO CADENA Ot 585.3 CHRONIC KIDNEY DISEASE, STAGE III (MODER 08/18/2019 ALFREDO CADENA Ot 793.5 NOSP (ABN) FINDINGS ON RADIOLOGICAL OT 08/18/2019 FERNY NICHOLSON MD Ot 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 08/18/2019 FERNY NICHOLSON MD Ot V72.84 EXAM PRE-OPERATIVE NOS 08/18/2019 JAD LIU, DANA Ot 174. 9 MALIGN NEOPL BREAST NOS 08/18/[address] MD Ot V76. 11 SCRN MAMMO-HIGH RISK PT, MALIGNANT NEOPL 08/18/[address] MD Ot 183. 0 MALIGN NEOPL OVARY 08/18/2019 BAIMA, NALINI L REFRIGERATOR ROOM CLERK Ot 272.4 HYPERLIPIDEMIA NEC/NOS 08/18/2019 BAIMA, NALINI L REFRIGERATOR ROOM CLERK Ot 401.9 HYPERTENSION NOS 08/18/2019 BAIMA, NALINI L REFRIGERATOR ROOM CLERK Ot 414.9 CHR ISCHEMIC HRT DIS NOS 08/18/2019 BAIMA, NALINI L REFRIGERATOR ROOM CLERK Ot 437.9 CEREBROVASC DISEASE NOS 08/18/2019 BAIMA, NALINI L REFRIGERATOR ROOM CLERK Ot 272.4 HYPERLIPIDEMIA NEC/NOS 08/18/2019 BAIMA, NALINI L REFRIGERATOR ROOM CLERK Ot 401.9 HYPERTENSION NOS 08/18/2019 BAIMA, NALINI L REFRIGERATOR ROOM CLERK Ot 414.00 CORON ATHEROSCLER NOS TYPE VESSEL, NATIV 08/18/2019 BAIMA, NALINI L REFRIGERATOR ROOM CLERK Ot 437.9 CEREBROVASC DISEASE NOS 08/18/[address] MD Ot 174. 9 MALIGN NEOPL BREAST NOS 08/18/[address] MD Ot 183. 0 MALIGN NEOPL OVARY 08/18/2019 FERNY NICHOLSON MD S Ot 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 08/18/2019 FERNY NICHOLSON MD S Ot V72.84 EXAM PRE-OPERATIVE NOS 08/18/[address] MD, Ot C50.919 MALIGNANT NEOPLASM OF UNSP SITE OF UNSPE 08/18/[address] MD Ot C56. 9 MALIGNANT NEOPLASM OF UNSPECIFIED OVARY 08/18/[address] MD Ot T85.698A [facility] COMPL OF INTERNAL PROSTH DEV/GRFT, 08/18/2019 TEODORO HERNANDEZ DO Ot Z01.818 ENCOUNTER FOR OTHER PREPROCEDURAL EXAMIN 08/18/[address] MD, Ot C56. 2 MALIGNANT NEOPLASM OF LEFT OVARY 08/18/[address] MD Ot Z85. 3 PERSONAL HISTORY OF MALIGNANT NEOPLASM O 08/18/[address] MD, Ot C50.919 MALIGNANT NEOPLASM OF UNSP SITE OF UNSPE 08/18/[address] MD, Ot C56. 9 MALIGNANT NEOPLASM OF UNSPECIFIED OVARY 08/18/2019 JAD LIU, DANA Ot Z12. 31 ENCNTR SCREEN MAMMOGRAM FOR MALIGNANT NE 08/18/[address] MD Ot C56. 1 MALIGNANT NEOPLASM OF RIGHT OVARY 08/18/[address] MD Ot N18. 9 CHRONIC KIDNEY DISEASE, UNSPECIFIED 08/18/2019 PENALOZA DOYASHTT D Ot C55 MALIGNANT NEOPLASM OF UTERUS, PART UNSPE 08/18/2019 PENALOZA DOYASHTT D Ot C56. 2 MALIGNANT NEOPLASM OF LEFT OVARY 08/18/2019 PENALOZA DO, ARIELLA D Ot E78. 5 HYPERLIPIDEMIA, UNSPECIFIED 08/18/2019 PENALOZA DO, ARIELLA D Ot G47. 33 OBSTRUCTIVE SLEEP APNEA (ADULT) (PEDIATR 08/18/2019 PENALOZA DO, ARIELLA D Ot I12. 9 HYPERTENSIVE CHRONIC KIDNEY DISEASE W ST 08/18/2019 PENALOZA DO, ARIELLA D Ot I25. 10 ATHSCL HEART DISEASE OF BLACKFEET CORONARY 08/18/2019 CA DO, ARIELLA D Ot N18. 2 CHRONIC KIDNEY DISEASE, STAGE 2 (MILD) 08/18/2019 PENALOZA DO ARIELLA D Ot T82.514A BREAKDOWN (MECHANICAL) OF INFUSION PAT 08/18/2019 CA DOARIELLA Ot Z79. 02 CUSTODIAL (CURRENT) USE OF ANTITHROMBOTI 08/18/2019 ARIELLA PENALOZA DO D Ot Z79. 82 CUSTODIAL (CURRENT) USE OF ASPIRIN 08/18/2019 YASH PENALOZA DOTT D Ot Z85. 3 PERSONAL HISTORY OF MALIGNANT NEOPLASM O 08/18/2019 CA DOARIELLA D Ot C56. 9 MALIGNANT NEOPLASM OF UNSPECIFIED OVARY 08/18/2019 PENALOZA DO ARIELLA D Ot E78. 5 HYPERLIPIDEMIA, UNSPECIFIED 08/18/2019 PENALOZA DO, ARIELLA D Ot G47. 33 OBSTRUCTIVE SLEEP APNEA (ADULT) (PEDIATR 08/18/2019 PENALOZA DO, ARIELLA D Ot I12. 9 HYPERTENSIVE CHRONIC KIDNEY DISEASE W ST 08/18/2019 PENALOZA DO ARIELLA D Ot I25. 10 ATHSCL HEART DISEASE OF BLACKFEET CORONARY 08/18/2019 PENALOZA DO, ARIELLA D Ot N18. 2 CHRONIC KIDNEY DISEASE, STAGE 2 (MILD) 08/18/2019 PENALOZA DO ARIELLA D Ot T82.514D BREAKDOWN (MECHANICAL) OF INFUSION PAT 08/18/2019 YASH PENALOZA DOJESSE Zheng Ot Z79. 02 CUSTODIAL (CURRENT) USE OF ANTITHROMBOTI 08/18/2019 PENALOZA ARIELLA Ot Z79. 82 CUSTODIAL (CURRENT) USE OF ASPIRIN 08/18/2019 CA LARIOSARIELLA Ot Z85. 3 PERSONAL HISTORY OF MALIGNANT NEOPLASM O 08/18/2019 JAD LIU, DANA Ot C56. 1 MALIGNANT NEOPLASM OF RIGHT OVARY 08/18/[address] MD Ot Z12. 31 ENCNTR SCREEN MAMMOGRAM FOR MALIGNANT NE 08/18/2019 LAURA LIU FACC, ALI FACP CCDS Ot E66.09 OTHER OBESITY DUE TO EXCESS CALORIES 08/18/2019 LAURA LIU FACC, ALI FACP CCDS Ot E78.4 OTHER HYPERLIPIDEMIA 08/18/2019 LAURA LIU FACC, ALI FACP CCDS Ot G47.33 OBSTRUCTIVE SLEEP APNEA (ADULT) (PEDIATR 08/18/2019 LAURA LIU FACC, ALI FACP CCDS Ot I12.9 HYPERTENSIVE CHRONIC KIDNEY DISEASE W ST 08/18/2019 LAURA LIU FACC, ALI FACP CCDS Ot 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 08/18/2019 LAURA LIU FACC, ALI FACP CCDS Ot I65.23 OCCLUSION AND STENOSIS OF BILATERAL REGAN 08/18/2019 LAURA LIU FACC, ALI FACP CCDS Ot N18.2 CHRONIC KIDNEY DISEASE, STAGE 2 (MILD) 08/18/2019 LAURA LIU FACC, ALI FACP CCDS Ot R07.89 OTHER CHEST PAIN 08/18/2019 LAURA LIU FACC, ALI FACP CCDS Ot E66.09 OTHER OBESITY DUE TO EXCESS CALORIES 08/18/2019 LAURA LIU FACC, ALI FACP CCDS Ot E78.4 OTHER HYPERLIPIDEMIA 08/18/2019 LAURA LIU FACC, ALI FACP CCDS Ot G47.33 OBSTRUCTIVE SLEEP APNEA (ADULT) (PEDIATR 08/18/2019 LAURA LIU FACC, ALI FACP CCDS Ot I12.9 HYPERTENSIVE CHRONIC KIDNEY DISEASE W ST 08/18/2019 LAURA LIU FACC, ALI FACP CCDS Ot 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 08/18/2019 LAURA LIU FACC, ALI FACP CCDS Ot I65.23 OCCLUSION AND STENOSIS OF BILATERAL REGAN 08/18/2019 LAURA LIU [facility] [place] CCDS Ot N18.2 CHRONIC KIDNEY DISEASE, STAGE 2 (MILD) 08/18/2019 LAURA LIU [facility] [place] CCDS Ot R07.89 OTHER CHEST PAIN 08/18/2019 ALFREDO CADENA Ot M85.852 OT DISRD OF BONE DENSITY AND STRUCTURE, 08/18/2019 ALFREDO CADENA Ot M85.88 OT DISRD OF BONE DENSITY AND STRUCTURE, 08/18/2019 ALFREDO CADENA Ot Z13.820 ENCOUNTER FOR SCREENING FOR OSTEOPOROSIS 08/18/[address] MD Ot R92. 0 MAMMOGRAPHIC MICROCALCIFICATION FOUND ON 08/18/[address] MD Ot Z12. 31 ENCNTR SCREEN MAMMOGRAM FOR MALIGNANT NE 08/18/2019 CRISTY SILVER NP-C Ot D63.1 ANEMIA IN CHRONIC KIDNEY DISEASE 08/18/2019 CRISTY SILVER KENNEL ASSISTANT-C Ot E46 UNSPECIFIED PROTEIN-CALORIE MALNUTRITION 08/18/2019 CRISTY SILVER KENNEL ASSISTANT-C Ot E55.9 VITAMIN D DEFICIENCY, UNSPECIFIED 08/18/2019 CRISTY SILVER NP-C Ot E78.5 HYPERLIPIDEMIA, UNSPECIFIED 08/18/2019 CRISTY SILVER NP-C Ot E83.4 2 HYPOMAGNESEMIA 08/18/2019 CRISTY SILVER NP-C Ot E87.2 ACIDOSIS 08/18/2019 CRISTY SILVER KENNEL ASSISTANT-C Ot E87.3 ALKALOSIS 08/18/2019 CRISTY SILVRE KENNEL ASSISTANT-C Ot I13.1 0 HYP HRT CHR KDNY DIS W/O HRT FAIL, W S 08/18/2019 CRISTY SILVER KENNEL ASSISTANT-C Ot I70.1 ATHEROSCLEROSIS OF RENAL ARTERY 08/18/2019 CRISTY SILVER KENNEL ASSISTANT-C Ot N18.4 CHRONIC KIDNEY DISEASE, STAGE 4 (SEVERE) 08/18/2019 CRISTY SILVER KENNEL ASSISTANT-C Ot N25.8 1 SECONDARY HYPERPARATHYROIDISM OF RENAL O 08/18/2019 CRISTY SILVER KENNEL ASSISTANT-C Ot R73.0 1 IMPAIRED FASTING GLUCOSE 08/18/2019 CRISTY SILVER KENNEL ASSISTANT-C Ot R80.9 PROTEINURIA, UNSPECIFIED 08/18/[address] MD Ot R92. 1 MAMMOGRAPHIC CALCIFCN FOUND ON DIAGNOSTI 08/18/[address] MD, Ot C56. 1 MALIGNANT NEOPLASM OF RIGHT OVARY 08/18/[address] MD Ot D05. 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 0 FATTY (CHANGE OF) LIVER, NOT ELSEWHERE C 08/18/[address] MD Ot R91. 8 OTHER NONSPECIFIC ABNORMAL FINDING OF KEVYN 08/18/[address] MD, Ot C56. 1 MALIGNANT NEOPLASM OF RIGHT OVARY 08/18/[address] MD, Ot D05. 11 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 08/18/[address] MD Ot R91. 1 SOLITARY PULMONARY NODULE 08/18/2019 CRISTY SILVER KENNEL ASSISTANT-C Ot D63.1 ANEMIA IN CHRONIC KIDNEY DISEASE 08/18/2019 NEWCRISTY KENNEL ASSISTANT-C Ot E46 UNSPECIFIED PROTEIN-CALORIE MALNUTRITION 08/18/2019 CRISTY SILVER KENNEL ASSISTANT-C Ot E55.9 VITAMIN D DEFICIENCY, UNSPECIFIED 08/18/2019 NEWCRISTY GRosalio KENNEL ASSISTANT-C Ot E66.9 OBESITY, UNSPECIFIED 08/18/2019 NEW CRISTY GRosalio KENNEL ASSISTANT-C Ot E78.5 HYPERLIPIDEMIA, UNSPECIFIED 08/18/2019 NEWCRISTY KENNEL ASSISTANT-C Ot E83.4 2 HYPOMAGNESEMIA 08/18/2019 NEW CRISTY GRosalio KENNEL ASSISTANT-C Ot E87.2 ACIDOSIS 08/18/2019 NEW CRISTY GRosalio KENNEL ASSISTANT-C Ot E87.3 ALKALOSIS 08/18/2019 NEWCRISTY GRosalio KENNEL ASSISTANT-C Ot I12.9 HYPERTENSIVE CHRONIC KIDNEY DISEASE W ST 08/18/2019 NEWCRISTY GRosalio KENNEL ASSISTANT-C Ot I70.1 ATHEROSCLEROSIS OF RENAL ARTERY 08/18/2019 NEWCRISTY GRosalio KENNEL ASSISTANT-C Ot N18.4 CHRONIC KIDNEY DISEASE, STAGE 4 (SEVERE) 08/18/2019 NEWCRISTY GRosalio KENNEL ASSISTANT-C Ot N25.8 1 SECONDARY HYPERPARATHYROIDISM OF RENAL O 08/18/2019 NEWCRISTY KENNEL ASSISTANT-C Ot R73.0 1 IMPAIRED FASTING GLUCOSE 08/18/2019 CRISTY SILVER PAULINA-Sherine Ot R80.9 PROTEINURIA, UNSPECIFIED 08/18/2019 KATIA PARR MD, Ot C54.1 MALIGNANT NEOPLASM OF ENDOMETRIUM 08/18/2019 KATIA PARR MD, Ot C56.1 MALIGNANT NEOPLASM OF RIGHT OVARY 08/18/2019 KATIA PARR MD, Ot D05.11 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 08/18/2019 KATIA PARR MD, Ot K80.20 CALCULUS OF GALLBLADDER W/O CHOLECYSTITI 08/18/2019 KATIA PARR MD, Ot N32.89 OTHER SPECIFIED DISORDERS OF BLADDER 08/18/[address] MD, Ot C55 MALIGNANT NEOPLASM OF UTERUS, PART UNSPE 08/18/[address] MD, Ot C56. 2 MALIGNANT NEOPLASM OF LEFT OVARY 08/18/[address] MD, Ot C78. 5 SECONDARY MALIGNANT NEOPLASM OF LARGE IN 08/18/[address] MD, Ot C78. 6 SECONDARY MALIGNANT NEOPLASM OF RETROPER 08/18/[address] MD, Ot C79. 89 SECONDARY MALIGNANT NEOPLASM OF OTHER SP 08/18/[address] MD, Ot D50. 0 IRON DEFICIENCY ANEMIA SECONDARY TO BLOO 08/18/[address] MD, Ot D63. 1 ANEMIA IN CHRONIC KIDNEY DISEASE 08/18/[address] MD, Ot D64. 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 0 GASTRO-ESOPHAGEAL REFLUX DISEASE WITH ES 08/18/[address] MD, Ot K44. 9 DIAPHRAGMATIC HERNIA WITHOUT OBSTRUCTION 08/18/[address] MD, Ot N18. 9 CHRONIC KIDNEY DISEASE, UNSPECIFIED 08/18/[address] MD, Ot Z51. 11 ENCOUNTER FOR ANTINEOPLASTIC CHEMOTHERAP 08/18/[address] MD, Ot Z79. 02 CUSTODIAL (CURRENT) USE OF ANTITHROMBOTI 08/18/[address] MD, Ot Z79. 82 TELLER [place]ULT (CURRENT) USE OF ASPIRIN 08/18/[address] MD, Ot85. 3 PERSONAL HISTORY OF MALIGNANT NEOPLASM O 08/18/[address] MD, Ot Z92. 21 PERSONAL HISTORY OF ANTINEOPLASTIC CHEMO 08/18/[address] MD, Ot Z95. 5 PRESENCE OF CORONARY ANGIOPLASTY IMPLANT 08/18/[address] MD, Ot T85.9XXA UNSP COMPLICATION OF INTERNAL PROSTH DEV 08/18/[address] MD, Ot D05. 11 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 08/18/[address] MD, Ot C54. 1 MALIGNANT NEOPLASM OF ENDOMETRIUM 08/18/[address] MD, Ot C56. 2 MALIGNANT NEOPLASM OF LEFT OVARY 08/18/[address] MD, Ot C78. 02 SECONDARY MALIGNANT NEOPLASM OF LEFT [place] 08/18/[address] MD, Ot C78. 5 SECONDARY MALIGNANT NEOPLASM OF LARGE IN 08/18/[address] MD, Ot C78. 6 SECONDARY MALIGNANT NEOPLASM OF RETROPER 08/18/[address] MD, Ot C79. 89 SECONDARY MALIGNANT NEOPLASM OF OTHER SP 08/18/[address] MD, Ot Z85. 3 PERSONAL HISTORY OF MALIGNANT NEOPLASM O 08/18/2019 FERNY NICHOLSON MD, Ot V72.84 EXAM PRE-OPERATIVE NOS 08/18/2019 ALFREDO CADENA Ot 585.3 CHRONIC KIDNEY DISEASE, STAGE III (MODER 08/18/2019 ALFREDO CADENA Ot 793.5 NOSP (ABN) FINDINGS ON RADIOLOGICAL OT 08/18/2019 FERNY NICHOLSON MD Ot 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 08/18/2019 FERNY NICHOLSON MD Ot V72.84 EXAM PRE-OPERATIVE NOS 08/18/[address] MD Ot 174. 9 MALIGN NEOPL BREAST NOS 08/18/[address] MD, Ot V76. 11 SCRN MAMMO-HIGH RISK PT, MALIGNANT NEOPL 08/18/[address] MD Ot 183. 0 MALIGN NEOPL OVARY 08/18/2019 NALINI SEBASTIAN REFRIGERATOR ROOM CLERK Ot 272.4 HYPERLIPIDEMIA NEC/NOS 08/18/2019 NALINI SEBASTIAN REFRIGERATOR ROOM CLERK Ot 401.9 HYPERTENSION NOS 08/18/2019 NALINI SEBASTIAN REFRIGERATOR ROOM CLERK Ot 414.9 CHR ISCHEMIC HRT DIS NOS 08/18/2019 NALINI SEBASTIAN REFRIGERATOR ROOM CLERK Ot 437.9 CEREBROVASC DISEASE NOS 08/18/2019 NALINI SEBASTIAN REFRIGERATOR ROOM CLERK Ot 272.4 HYPERLIPIDEMIA NEC/NOS 08/18/2019 NALINI SEBASTIAN L REFRIGERATOR ROOM CLERK Ot 401.9 HYPERTENSION NOS 08/18/2019 NALINI SEBASTIAN REFRIGERATOR ROOM CLERK Ot 414.00 CORON ATHEROSCLER NOS TYPE VESSEL, NATIV 08/18/2019 NALINI SEBASTIAN REFRIGERATOR ROOM CLERK Ot 437.9 CEREBROVASC DISEASE NOS 08/18/[address] MD Ot 174. 9 MALIGN NEOPL BREAST NOS 08/18/[address] MD Ot 183. 0 MALIGN NEOPL OVARY 08/18/2019 FERNY NICHOLSON MD S Ot 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 08/18/2019 FERNY NICHOLSON MD S Ot V72.84 EXAM PRE-OPERATIVE NOS 08/18/[address] MD, Ot C50.919 MALIGNANT NEOPLASM OF UNSP SITE OF UNSPE 08/18/[address] MD, Ot C56. 9 MALIGNANT NEOPLASM OF UNSPECIFIED OVARY 08/18/[address] MD, Ot T85.698A [facility] COMPL OF INTERNAL PROSTH DEV/GRFT, 08/18/2019 TEODORO HERNANDEZ DO Ot Z01.818 ENCOUNTER FOR OTHER PREPROCEDURAL EXAMIN 08/18/[address] MD, Ot C56. 2 MALIGNANT NEOPLASM OF LEFT OVARY 08/18/[address] MD, Ot Z85. 3 PERSONAL HISTORY OF MALIGNANT NEOPLASM O 08/18/[address] MD, Ot C50.919 MALIGNANT NEOPLASM OF UNSP SITE OF UNSPE 08/18/[address] MD, Ot C56. 9 MALIGNANT NEOPLASM OF UNSPECIFIED OVARY 08/18/[address] MD, Ot Z12. 31 ENCNTR SCREEN MAMMOGRAM FOR MALIGNANT NE 08/18/[address] MD, Ot C56. 1 MALIGNANT NEOPLASM OF RIGHT OVARY 08/18/[address] MD Ot N18. 9 CHRONIC KIDNEY DISEASE, UNSPECIFIED 08/18/2019 ARIELLA PENALOZA DO Ot C55 MALIGNANT NEOPLASM OF UTERUS, PART UNSPE 08/18/2019 CA DOARIELLA Ot C56. 2 MALIGNANT NEOPLASM OF LEFT OVARY 08/18/2019 PENALOZA DOARIELLA D Ot E78. 5 HYPERLIPIDEMIA, UNSPECIFIED 08/18/2019 PENALOZA DO ARIELLA D Ot G47. 33 OBSTRUCTIVE SLEEP APNEA (ADULT) (PEDIATR 08/18/2019 PENALOZA DO ARIELLA D Ot I12. 9 HYPERTENSIVE CHRONIC KIDNEY DISEASE W ST 08/18/2019 PENALOZA DOYASHTT D Ot I25. 10 ATHSCL HEART DISEASE OF BLACKFEET CORONARY 08/18/2019 PENALOZA DO ARIELLA D Ot N18. 2 CHRONIC KIDNEY DISEASE, STAGE 2 (MILD) 08/18/2019 ARIELLA PENALOZA DO Ot T82.514A BREAKDOWN (MECHANICAL) OF INFUSION PAT 08/18/2019 PENALOZA DOARIELLA Ot Z79. 02 CUSTODIAL (CURRENT) USE OF ANTITHROMBOTI 08/18/2019 ARIELLA PENALOZA DO Ot Z79. 82 TELLER VAULT (CURRENT) USE OF ASPIRIN 08/18/2019 PENALOZA DOARIELLA Ot Z85. 3 PERSONAL HISTORY OF MALIGNANT NEOPLASM O 08/18/2019 ARIELLA PENALOZA DO Ot C56. 9 MALIGNANT NEOPLASM OF UNSPECIFIED OVARY 08/18/2019 ARIELLA PENALOZA DO Ot E78. 5 HYPERLIPIDEMIA, UNSPECIFIED 08/18/2019 PENALOZA DOYASHTT D Ot G47. 33 OBSTRUCTIVE SLEEP APNEA (ADULT) (PEDIATR 08/18/2019 PENALOZA DOYASHTT D Ot I12. 9 HYPERTENSIVE CHRONIC KIDNEY DISEASE W ST 08/18/2019 ARIELLA PENALOZA DO Ot I25. 10 ATHSCL HEART DISEASE OF BLACKFEET CORONARY 08/18/2019 PENALOZA DOYASHTT D Ot N18. 2 CHRONIC KIDNEY DISEASE, STAGE 2 (MILD) 08/18/2019 ARIELLA PENALOZA DO Ot T82.514D BREAKDOWN (MECHANICAL) OF INFUSION PAT 08/18/2019 ARIELLA PENALOZA DO Ot Z79. 02 TELLER VAULT (CURRENT) USE OF ANTITHROMBOTI 08/18/2019 PENALOZAARIELLA PARKER DO Ot Z79. 82 CUSTODIAL (CURRENT) USE OF ASPIRIN 08/18/2019 PENALOZAARIELLA PARKER DO Ot Z85. 3 PERSONAL HISTORY OF MALIGNANT NEOPLASM O 08/18/[address] MD Ot C56. 1 MALIGNANT NEOPLASM OF RIGHT OVARY 08/18/[address] MD Ot Z12. 31 ENCNTR SCREEN MAMMOGRAM FOR MALIGNANT NE 08/18/2019 LAURA LIU FACC, ALI FACP CCDS Ot E66.09 OTHER OBESITY DUE TO EXCESS CALORIES 08/18/2019 LAURA LIU FACC, ALI FACP CCDS Ot E78.4 OTHER HYPERLIPIDEMIA 08/18/2019 LAURA LIU FACC, ALI FACP CCDS Ot G47.33 OBSTRUCTIVE SLEEP APNEA (ADULT) (PEDIATR 08/18/2019 LAURA LIU FACC, ALI FACP CCDS Ot I12.9 HYPERTENSIVE CHRONIC KIDNEY DISEASE W ST 08/18/2019 LAURA NYEC, ALI FACP CCDS Ot 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 08/18/2019 LAURA LIU FACC, ALI FACP CCDS Ot I65.23 OCCLUSION AND STENOSIS OF BILATERAL REGAN 08/18/2019 LAURA LIU FACC, ALI FACP CCDS Ot N18.2 CHRONIC KIDNEY DISEASE, STAGE 2 (MILD) 08/18/2019 LAURA NYEC, ALI FACP CCDS Ot R07.89 OTHER CHEST PAIN 08/18/2019 LAURA LIU FACC, ALI FACP CCDS Ot E66.09 OTHER OBESITY DUE TO EXCESS CALORIES 08/18/2019 LAURA LIU FACC, ALI FACP CCDS Ot E78.4 OTHER HYPERLIPIDEMIA 08/18/2019 LAURA LIU FACC, ALI FACP CCDS Ot G47.33 OBSTRUCTIVE SLEEP APNEA (ADULT) (PEDIATR 08/18/2019 LAURA NYEC, ALI FACP CCDS Ot I12.9 HYPERTENSIVE CHRONIC KIDNEY DISEASE W ST 08/18/2019 LAURA NYEC, ALI FACP CCDS Ot 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 08/18/2019 LAURA LIU FACC, ALI FACP CCDS Ot I65.23 OCCLUSION AND STENOSIS OF BILATERAL REGAN 08/18/2019 LAURA NYEC, ALI FACP CCDS Ot N18.2 CHRONIC KIDNEY DISEASE, STAGE 2 (MILD) 08/18/2019 LAURA LIU FACC, ALI FACP CCDS Ot R07.89 OTHER CHEST PAIN 08/18/2019 ALFREDO CADENA Ot M85.852 OT DISRD OF BONE DENSITY AND STRUCTURE, 08/18/2019 ALFREDO CADENA Ot M85.88 OTH DISRD OF BONE DENSITY AND STRUCTURE, 08/18/2019 ALFREDO CADENA Ot Z13.820 ENCOUNTER FOR SCREENING FOR OSTEOPOROSIS 08/18/[address] MD, Ot R92. 0 MAMMOGRAPHIC MICROCALCIFICATION FOUND ON 08/18/[address] MD, Ot Z12. 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 1 MAMMOGRAPHIC CALCIFCN FOUND ON DIAGNOSTI 08/18/[address] MD, Ot C56. 1 MALIGNANT NEOPLASM OF RIGHT OVARY 08/18/[address] MD Ot D05. 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 0 FATTY (CHANGE OF) LIVER, NOT ELSEWHERE C 08/18/[address] MD Ot R91. 8 OTHER NONSPECIFIC ABNORMAL FINDING OF KEVYN 08/18/[address] MD Ot C56. 1 MALIGNANT NEOPLASM OF RIGHT OVARY 08/18/[address] MD Ot D05. 11 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 08/18/[address] MD Ot R91. 1 SOLITARY PULMONARY NODULE 08/18/2019 NEW, CRISTY G. KENNEL ASSISTANT-C Ot D63.1 ANEMIA IN CHRONIC KIDNEY DISEASE 08/18/2019 NEW, CRISTY G. KENNEL ASSISTANT-C Ot E46 UNSPECIFIED PROTEIN-CALORIE MALNUTRITION 08/18/2019 NEW, CRISTY G. KENNEL ASSISTANT-C Ot E55.9 VITAMIN D DEFICIENCY, UNSPECIFIED 08/18/2019 NEW, CRISTY G. KENNEL ASSISTANT-C Ot E66.9 OBESITY, UNSPECIFIED 08/18/2019 NEW, CRISTY G. KENNEL ASSISTANT-C Ot E78.5 HYPERLIPIDEMIA, UNSPECIFIED 08/18/2019 NEW, CRISTY G. KENNEL ASSISTANT-C Ot E83.4 2 HYPOMAGNESEMIA 08/18/2019 NEW, CRISTY G. KENNEL ASSISTANT-C Ot E87.2 ACIDOSIS 08/18/2019 NEW, CRISTY G. KENNEL ASSISTANT-C Ot E87.3 ALKALOSIS 08/18/2019 NEW, CRISTY G. KENNEL ASSISTANT-C Ot I12.9 HYPERTENSIVE CHRONIC KIDNEY DISEASE W ST 08/18/2019 NEW, CRISTY G. KENNEL ASSISTANT-C Ot I70.1 ATHEROSCLEROSIS OF RENAL ARTERY 08/18/2019 NEW, CRISTY G. KENNEL ASSISTANT-C Ot N18.4 CHRONIC KIDNEY DISEASE, STAGE 4 (SEVERE) 08/18/2019 NEW, CRISTY G. KENNEL ASSISTANT-C Ot N25.8 1 SECONDARY HYPERPARATHYROIDISM OF RENAL O 08/18/2019 NEW, CRISTY G. KENNEL ASSISTANT-C Ot R73.0 1 IMPAIRED FASTING GLUCOSE 08/18/2019 NEW, CRISTY G. 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 2 MALIGNANT NEOPLASM OF LEFT OVARY 08/18/[address] MD, Ot C78. 5 SECONDARY MALIGNANT NEOPLASM OF LARGE IN 08/18/[address] MD, Ot C78. 6 SECONDARY MALIGNANT NEOPLASM OF RETROPER 08/18/[address] MD, Ot C79. 89 SECONDARY MALIGNANT NEOPLASM OF OTHER SP 08/18/[address] MD, Ot D50. 0 IRON DEFICIENCY ANEMIA SECONDARY TO BLOO 08/18/[address] MD, Ot D63. 1 ANEMIA IN CHRONIC KIDNEY DISEASE 08/18/[address] MD, Ot D64. 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 0 GASTRO-ESOPHAGEAL REFLUX DISEASE WITH ES 08/18/[address] MD, Ot K44. 9 DIAPHRAGMATIC HERNIA WITHOUT OBSTRUCTION 08/18/[address] MD, Ot N18. 9 CHRONIC KIDNEY DISEASE, UNSPECIFIED 08/18/[address] MD, Ot Z51. 11 ENCOUNTER FOR ANTINEOPLASTIC CHEMOTHERAP 08/18/[address] MD, Ot Z79. 02 TELLER VAULT (CURRENT) USE OF ANTITHROMBOTI 08/18/[address] MD, Ot Z79. 82 CUSTODIAL (CURRENT) USE OF ASPIRIN 08/18/[address] MD, Ot Z85. 3 PERSONAL HISTORY OF MALIGNANT NEOPLASM O 08/18/[address] MD, Ot Z92. 21 PERSONAL HISTORY OF ANTINEOPLASTIC CHEMO 08/18/[address] MD, Ot Z95. 5 PRESENCE OF CORONARY ANGIOPLASTY IMPLANT 08/18/[address] MD, Ot T85.9XXA UNSP COMPLICATION OF INTERNAL PROSTH DEV 08/18/2019 XUN MD, ROSARIO-ARCELIA Ot D05. 11 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 08/18/[address] MD Ot C54. 1 MALIGNANT NEOPLASM OF ENDOMETRIUM 08/18/[address] MD Ot C56. 2 MALIGNANT NEOPLASM OF LEFT OVARY 08/18/[address] MD Ot C78. 02 SECONDARY MALIGNANT NEOPLASM OF LEFT MASSIMO 08/18/[address] MD Ot C78. 5 SECONDARY MALIGNANT NEOPLASM OF LARGE IN 08/18/[address] MD Ot C78. 6 SECONDARY MALIGNANT NEOPLASM OF RETROPER 08/18/[address] MD Ot C79. 89 SECONDARY MALIGNANT NEOPLASM OF OTHER SP 08/18/[address] MD Ot Z85. 3 PERSONAL HISTORY OF MALIGNANT NEOPLASM O 08/22/2019 TRUMAN LIU, GUICHO Gordon Ot D49. 6 NEOPLASM OF UNSPECIFIED BEHAVIOR OF BRAI 08/22/2019 GUICHO LAUGHLIN MD, Ot D64. 9 ANEMIA, UNSPECIFIED 08/22/2019 GUICHO LAUGHLIN MD, Ot E78. 00 PURE HYPERCHOLESTEROLEMIA, UNSPECIFIED 08/22/2019 GUICHO LAUGHLIN MD, Ot F32. 9 MAJOR DEPRESSIVE DISORDER, SINGLE EPISOD 08/22/2019 GUICHO LAUGHLIN MD, Ot F41. 9 ANXIETY DISORDER, UNSPECIFIED 08/22/2019 GUICHO LAUGHLIN MD Ot I10 ESSENTIAL (PRIMARY) HYPERTENSION 08/22/2019 GUICHO LAUGHLIN MD, Ot I25. 10 ATHSCL HEART DISEASE OF BL[place]FEET CORONARY 08/22/2019 GUICHO LAUGHLIN MD, Ot K21. 9 GASTRO-ESOPHAGEAL REFLUX DISEASE WITHOUT 08/22/2019 TRUMAN LIU, GUICHO Gordon Ot R40.2142 COMA SCALE, EYES OPEN, SPONTANEOUS, EMR 08/22/2019 GUICHO LAUGHLIN MD, Ot R40.2252 COMA SCALE, BEST VERBAL RESPONSE, ORIENT 08/22/2019 GUICHO LAUGHLIN MD, Ot R40.2362 COMA SCALE, BEST MOTOR RESPONSE, OBEYS C 08/22/2019 GUICHO LAUGHLIN MD, Ot S09.90XA UNSPECIFIED INJURY OF HEAD, INITIAL ENCO 08/22/2019 GUICHO LAUGHLIN MD, Ot W19.XXXA UNSPECIFIED FALL, INITIAL ENCOUNTER 08/22/2019 TRUMAN MD, GUICHO S Ot W22.8XXA STRIKING AGAINST OR STRUCK BY OTHER OBJE 08/22/2019 TRUMAN LIU, GUICHO Gordon Ot Z79. 02 CUSTODIAL (CURRENT) USE OF ANTITHROMBOTI 08/22/2019 TRUMAN LIU, GUICHO Gordon Ot Z85. 3 PERSONAL HISTORY OF MALIGNANT NEOPLASM O 08/22/2019 TRUMAN LIU, GUICHO Gordon Ot Z85. 43 PERSONAL HISTORY OF MALIGNANT NEOPLASM O 08/22/2019 TRUMAN LIU, GUICHO Gordon Ot Z85. 44 PERSONAL HISTORY OF MALIG NEOPLASM OF FE 08/22/2019 TRUMAN LIU, GUICHO Gordon Ot Z88. 0 ALLERGY STATUS TO PENICILLIN 08/22/2019 TRUMAN LIU, GUICHO Gordon Ot Z90.710 ACQUIRED ABSENCE OF BOTH CERVIX AND UTER 08/22/2019 TRUMAN LIU, GUICHO Gordon Ot Z91.041 RADIOGRAPHIC DYE ALLERGY STATUS 08/22/2019 TRUMAN LIU, GUICHO Gordon Ot Z95. 5 PRESENCE OF CORONARY ANGIOPLASTY IMPLANT 08/24/2019 TRUMAN LIU, GUICHO Gordon Ot D49. 6 NEOPLASM OF UNSPECIFIED BEHAVIOR OF BRAI 08/24/2019 TRUMAN LIU, GUICHO Gordon Ot D64. 9 ANEMIA, UNSPECIFIED 08/24/2019 TRUMAN LIU, GUICHO Gordon Ot E78. 00 PURE HYPERCHOLESTEROLEMIA, UNSPECIFIED 08/24/2019 TRUMAN LIU, GUICHO Gordon Ot F32. 9 MAJOR DEPRESSIVE DISORDER, SINGLE EPISOD 08/24/2019 TRUMAN LIU, GUICHO Gordon Ot F41. 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 9 GASTRO-ESOPHAGEAL REFLUX DISEASE WITHOUT 08/24/2019 TRUMAN LIU, GUCIHO Gordon Ot R40.2142 COMA SCALE, EYES OPEN, SPONTANEOUS, EMR 08/24/2019 TRUMAN LIU, GUICHO Gordon Ot R40.2252 COMA SCALE, BEST VERBAL RESPONSE, ORIENT 08/24/2019 TRUMAN LIU, GUICHO Gordon Ot R40.2362 COMA SCALE, BEST MOTOR RESPONSE, OBEYS C 08/24/2019 GUICHO LAUGHLIN MD Ot S09.90XA UNSPECIFIED INJURY OF HEAD, INITIAL ENCO 08/24/2019 GUICHO LAUGHLIN MD Ot W19.XXXA UNSPECIFIED FALL, INITIAL ENCOUNTER 08/24/2019 GUICHO LAUGHLIN MD Ot W22.8XXA STRIKING AGAINST OR STRUCK BY OTHER OBJE 08/24/2019 GUICHO LAUGHLIN MD Ot Z79. 02 TELLER VAULT (CURRENT) USE OF ANTITHROMBOTI 08/24/2019 GUICHO LAUGHLIN MD Ot Z85. 3 PERSONAL HISTORY OF MALIGNANT NEOPLASM O 08/24/2019 GUICHO LAUGHLIN MD Ot Z85. 43 PERSONAL HISTORY OF MALIGNANT NEOPLASM O 08/24/2019 GUICHO LAUGHLIN MD Ot Z85. 44 PERSONAL HISTORY OF MALIG NEOPLASM OF FE 08/24/2019 GUICHO LAUGHLIN MD Ot Z88. 0 ALLERGY STATUS TO PENICILLIN 08/24/2019 GUICHO LAUGHLIN MD Ot Z90.710 ACQUIRED ABSENCE OF BOTH CERVIX AND UTER 08/24/2019 GUICHO LAUGHLIN MD Ot Z91.041 RADIOGRAPHIC DYE ALLERGY STATUS 08/24/2019 GUICHO LAUGHLIN MD Ot Z95. 5 PRESENCE OF CORONARY ANGIOPLASTY IMPLANT Procedures There is no data. Results Test Result Range Methicillin resistant Staphylococcus aur eus (MRSA) screening culture - 06/18/16 07:25 Methicillin resistant Staphylococcus aureus (MRSA) scr eening culture NEG NRG Automated blood complete blood count (he mogram) panel - 07/06/16 09:00 Blood leukocytes automated count (number/volume) 7.7 10*3/uL 4.3-11.0 Blood erythrocytes automated count (number/volume) 4.56 10*6/uL 4.35-5.85 Venous blood hemoglobin measurement (mass/volume) 13.5 g/dL 11.5-16.0 Blood hematocrit (volume fraction) 41 % 35-52 Automated erythrocyte mean corpuscular volume 91 [ foz_us] 80-99 Automated erythrocyte mean corpuscular h emoglobin (mass per erythrocyte) 30 pg 25-34 Automated erythrocyte mean corpuscular h emoglobin concentration measurement (mass/volume) 33 g/dL 32-36 Automated erythrocyte distribution width ratio 13. 7 % 10.0- 14.5 Automated blood platelet count (count/volume) 219 10*3/uL 130-400 Automated blood platelet mean volume measurement 9.5 [foz_us] 7.4-10.4 PT panel in platelet poor plasma by coag ulation assay - 07/06/16 09:00 Prothrombin time (PT) in platelet poor plasma by coagu lation assay 12.2 s 12.2-14.7 INR in platelet poor plasma or blood by coagulation as say 0.9 0.8-1.4 Activated partial thromboplastin time (a PTT) in platelet poor plasma bycoagulation assay - 07/06/16 09:00 Activated partial thromboplastin time (a PTT) in platelet poor plasma bycoagulation assay 28 s 24-35 Comprehensive metabolic panel - 07/06/16 09:00 Serum or plasma sodium measurement (moles/volume) 139 mmol/L 135-145 Serum or plasma potassium measurement (moles/volume) 4.0 mmol/L 3.6-5.0 Serum or plasma chloride measurement (moles/volume) 101 mmol/L 98-107 Carbon dioxide 27 mmol/L 21-32 Serum or plasma anion gap determination (moles/volume) 11 mmol/L 5-14 Serum or plasma urea nitrogen measurement (mass/volume ) 15 mg/dL 7-18 Serum or plasma creatinine measurement (mass/volume) 1.33 mg/dL 0.60-1.30 Serum or plasma urea nitrogen/creatinine mass ratio 11 NRG Serum or plasma creatinine measurement w ith calculation of estimated glomerular filtration rate 40 NRG Serum or plasma glucose measurement (mass/volume) 137 mg/dL 70-105 Serum or plasma calcium measurement (mass/volume) 9.4 mg/dL 8.5-10.1 Serum or plasma total bilirubin measurement (mass/volu me) 0.4 mg/dL 0.1-1.0 Serum or plasma alkaline phosphatase javi surement (enzymatic activity/volume) 122 U/L 40-136 Serum or plasma aspartate aminotransfera se measurement (enzymatic activity/volume) 21 U/L 5-34 Serum or plasma alanine aminotransferase measurement (enzymatic activity/volume) 23 U/L 0-55 Serum or plasma protein measurement (mass/volume) 7.6 g/dL 6.4-8.2 Serum or plasma albumin measurement (mass/volume) 4.3 g/dL 3.2-4.5 Methicillin resistant Staphylococcus aur eus (MRSA) screening culture - 07/06/16 09:00 Methicillin resistant Staphylococcus aureus (MRSA) scr eening culture NEG NRG Automated blood complete blood count (he mogram) panel - 07/09/16 12:32 Blood leukocytes automated count (number/volume) 7.8 10*3/uL 4.3-11.0 Blood erythrocytes automated count (number/volume) 4.64 10*6/uL 4.35-5.85 Venous blood hemoglobin measurement (mass/volume) 14.0 g/dL 11.5-16.0 Blood hematocrit (volume fraction) 42 % 35-52 Automated erythrocyte mean corpuscular volume 91 [ foz_us] 80-99 Automated erythrocyte mean corpuscular h emoglobin (mass per erythrocyte) 30 pg 25-34 Automated erythrocyte mean corpuscular h emoglobin concentration measurement (mass/volume) 33 g/dL 32-36 Automated erythrocyte distribution width ratio 13. 9 % 10.0- 14.5 Automated blood platelet count (count/volume) 200 10*3/uL [...] 5-14 Serum or plasma urea nitrogen measurement (mass/volume ) 19 mg/dL 7-18 Serum or plasma creatinine measurement (mass/volume) 1.57 mg/dL 0.60-1.30 Serum or plasma urea nitrogen/creatinine mass ratio 12 NRG Serum or plasma creatinine measurement w ith calculation of estimated glomerular filtration rate 33 NRG Serum or plasma glucose measurement (mass/volume) 98 mg/dL 70-105 Serum or plasma calcium measurement (mass/volume) 8.9 mg/dL 8.5-10.1 Serum or plasma total bilirubin measurement (mass/volu me) 0.5 mg/dL 0.1-1.0 Serum or plasma alkaline phosphatase javi surement (enzymatic activity/volume) 104 U/L 40-136 Serum or plasma aspartate aminotransfera se measurement (enzymatic activity/volume) 26 U/L 5-34 Serum or plasma alanine aminotransferase measurement (enzymatic activity/volume) 29 U/L 0-55 Serum or plasma protein measurement (mass/volume) 7.5 g/dL 6.4-8.2 Serum or plasma albumin measurement (mass/volume) 4.2 g/dL 3.2-4.5 Methicillin resistant Staphylococcus aur eus (MRSA) screening culture - 07/09/16 12:32 Methicillin resistant Staphylococcus aureus (MRSA) scr eening culture NEG NRG Automated blood complete blood count (he mogram) panel - 10/06/17 11:28 Blood leukocytes automated count (number/volume) 5.8 10*3/uL 4.3-11.0 Blood erythrocytes automated count (number/volume) 4.45 10*6/uL 4.35-5.85 Venous blood hemoglobin measurement (mass/volume) 13.6 g/dL 11.5-16.0 Blood hematocrit (volume fraction) 40 % 35-52 Automated erythrocyte mean corpuscular volume 90 [ foz_us] 80-99 Automated erythrocyte mean corpuscular h emoglobin (mass per erythrocyte) 31 pg 25-34 Automated erythrocyte mean corpuscular h emoglobin concentration measurement (mass/volume) 34 g/dL 32-36 Automated erythrocyte distribution width ratio 14. 1 % 10.0- 14.5 Automated blood platelet count (count/volume) 200 10*3/uL 130-400 Automated blood platelet mean volume measurement 9.5 [foz_us] 7.4-10.4 Serum or plasma renal function panel (Na , K, Cl, CO2, BUN, Cr, glucose,Ca, phos, alb) - 10/06/17 11:28 Serum or plasma sodium measurement (moles/volume) 138 mmol/L 135-145 Serum or plasma potassium measurement (moles/volume) 4.5 mmol/L 3.6-5.0 Serum or plasma chloride measurement (moles/volume) 100 mmol/L 98-107 Carbon dioxide 28 mmol/L 21-32 Serum or plasma anion gap determination (moles/volume) 10 mmol/L 5-14 Serum or plasma urea nitrogen measurement (mass/volume ) 20 mg/dL 7-18 Serum or plasma creatinine measurement (mass/volume) 1.38 mg/dL 0.60-1.30 Serum or plasma urea nitrogen/creatinine mass ratio 14 NRG Serum or plasma creatinine measurement w ith calculation of estimated glomerular filtration rate 38 [...] Serum or plasma cholesterol in HDL measurement (mass/v olume) 42 mg/dL 40-60 Cholesterol in LDL [mass/volume] in serum or plasma by direct assay 112 mg/dL 1-129 Serum or plasma cholesterol in VLDL measurement (mass/ volume) 31 mg/dL 5-40 Urine protein/creatinine mass ratio - 12:16 Urine protein measurement (mass/volume) 30 mg/dL 6-12 Urine creatinine measurement (mass/volume) 177 mg/ dL 30-125 Urine protein/creatinine mass ratio 0.17 NR Automated blood complete blood count (he mogram) panel - 02/02/18 07:15 Blood leukocytes automated count (number/volume) 6.0 10*3/uL 4.3-11.0 Blood erythrocytes automated count (number/volume) 4.38 10*6/uL 4.35-5.85 Venous blood hemoglobin measurement (mass/volume) 13.0 g/dL 11.5-16.0 Blood hematocrit (volume fraction) 39 % 35-52 Automated erythrocyte mean corpuscular volume 89 [ foz_us] 80-99 Automated erythrocyte mean corpuscular h emoglobin (mass per erythrocyte) 30 pg 25-34 Automated erythrocyte mean corpuscular h emoglobin concentration measurement (mass/volume) 33 g/dL 32-36 Automated erythrocyte distribution width ratio 14. 6 % 10.0- 14.5 Automated blood platelet count (count/volume) 174 10*3/uL 130-400 Automated blood platelet mean volume measurement 9.5 [foz_us] 7.4-10.4 PT panel in platelet poor plasma by coag ulation assay - 02/02/18 07:15 Prothrombin time (PT) in platelet poor plasma by coagu lation assay 12.4 s 12.2-14.7 INR in platelet poor plasma or blood by coagulation as say 0.9 0.8-1.4 Activated partial thromboplastin time (a PTT) in platelet poor plasma bycoagulation assay - 02/02/18 07:15 Activated partial thromboplastin time (a PTT) in platelet poor plasma bycoagulation assay 25 s 24-35 Cancer antigen 27-29 measurement - 02/02 07:15 Cancer antigen 27-29 measurement TNP NRG Complete blood count (CBC) with automate d white blood cell (WBC) differential - 03/28/18 12:26 Blood leukocytes automated count (number/volume) 5.4 10*3/uL 4.3-11.0 Blood erythrocytes automated count (number/volume) 3.33 10*6/uL 4.35-5.85 Venous blood hemoglobin measurement (mass/volume) 9.8 g/dL 11.5-16.0 Blood hematocrit (volume fraction) 31 % 35-52 Automated erythrocyte mean corpuscular volume 92 [ foz_us] 80-99 Automated erythrocyte mean corpuscular h emoglobin (mass per erythrocyte) 29 pg 25-34 Automated erythrocyte mean corpuscular h emoglobin concentration measurement (mass/volume) 32 g/dL 32-36 Automated erythrocyte distribution width ratio 16. 5 % 10.0- 14.5 Automated blood platelet count (count/volume) 176 10*3/uL [...] 10*3 1.0-4.0 Blood monocytes automated count (number/volume) 0. 6 10*3 0.0-1.0 Automated eosinophil count 0.0 10*3/uL 0 .0-0.3 Automated blood basophil count (count/volume) 0.0 10*3/uL 0.0-0.1 Serum or plasma renal function panel (Na , K, Cl, CO2, BUN, Cr, glucose,Ca, phos, alb) - 03/28/18 12:26 Serum or plasma sodium measurement (moles/volume) 141 mmol/L 135-145 Serum or plasma potassium measurement (moles/volume) 4.0 mmol/L 3.6-5.0 Serum or plasma chloride measurement (moles/volume) 101 mmol/L 98-107 Carbon dioxide 32 mmol/L 21-32 Serum or plasma anion gap determination (moles/volume) 8 mmol/L 5-14 Serum or plasma urea nitrogen measurement (mass/volume ) 9 mg/dL 7-18 Serum or plasma creatinine measurement (mass/volume) 1.18 mg/dL 0.60-1.30 Serum or plasma urea nitrogen/creatinine mass ratio 8 NRG Serum or plasma creatinine measurement w ith calculation of estimated glomerular filtration rate 46 NRG Serum or plasma glucose measurement (mass/volume) 98 mg/dL 70-105 Serum or plasma calcium measurement (mass/volume) 9.1 mg/dL 8.5-10.1 Serum or plasma albumin measurement (mass/volume) 3.5 g/dL 3.2-4.5 Serum or plasma phosphate measurement (mass/volume) 2.9 mg/dL 2.3-4.7 Magnesium - 03/28/18 12:26 Magnesium 1.5 mg/dL 1.8-2.4 Serum or plasma intact pararthyroid horm one measurement (mass/volume) - 03/28/18 12:26 Serum or plasma intact parathyroid hormone measurement (mass/volume) 102.7 pg/mL 9.0-77.0 Bio-intact parathyroid hormone (PTH) measurement with calcium 8.9 % 8.5-10.5 VITAMIN D 25-HYDROXY - 03/28/18 12:26 VITAMIN D 25-HYDROXY (TOTAL) 47.0 % 3 0.0-100.0 Urine protein/creatinine mass ratio - 13:07 Urine protein measurement (mass/volume) 30 mg/dL 6-12 Urine creatinine measurement (mass/volume) 178 mg/ dL 30-125 Urine protein/creatinine mass ratio 0.17 NRG Complete blood count (CBC) with automate d white blood cell (WBC) differential - 06/25/18 01:06 Blood leukocytes automated count (number/volume) 4.2 10*3/uL 4.3-11.0 Blood erythrocytes automated count (number/volume) 2.34 10*6/uL 4.35-5.85 Venous blood hemoglobin measurement (mass/volume) 7.5 g/dL 11.5-16.0 Blood hematocrit (volume fraction) 23 % 35-52 Automated erythrocyte mean corpuscular volume 98 [ foz_us] 80-99 Automated erythrocyte mean corpuscular h emoglobin (mass per erythrocyte) 32 pg 25-34 Automated erythrocyte mean corpuscular h emoglobin concentration measurement (mass/volume) 33 g/dL 32-36 Automated erythrocyte distribution width ratio 20. 9 % 10.0- 14.5 Automated blood platelet count (count/volume) 48 1 0*3/uL 130-400 Automated blood platelet mean volume measurement [...] 10*3 1.0-4.0 Blood monocytes automated count (number/volume) 0. 4 10*3 0.0-1.0 Automated eosinophil count 0.1 10*3/uL 0 .0-0.3 Automated blood basophil count (count/volume) 0.0 10*3/uL 0.0-0.1 Blood lactic acid measurement (moles/vol ume) - 06/25/18 01:06 Blood lactic acid measurement [...] 5-14 Serum or plasma urea nitrogen measurement (mass/volume ) 20 mg/dL 7-18 Serum or plasma creatinine measurement (mass/volume) 2.71 mg/dL 0.60-1.30 Serum or plasma urea nitrogen/creatinine mass ratio 7 NRG Serum or plasma creatinine measurement w ith calculation of estimated glomerular filtration rate 18 NRG Serum or plasma glucose measurement (mass/volume) 117 mg/dL 70-105 Serum or plasma calcium measurement (mass/volume) 9.4 mg/dL 8.5-10.1 Serum or plasma total bilirubin measurement (mass/volu me) 0.8 mg/dL 0.1-1.0 Serum or plasma alkaline phosphatase javi surement (enzymatic activity/volume) 103 U/L 40-136 Serum or plasma aspartate aminotransfera se measurement (enzymatic activity/volume) 25 U/L 5-34 Serum or plasma alanine aminotransferase measurement (enzymatic activity/volume) 16 U/L 0-55 Serum or plasma protein measurement (mass/volume) 7.6 g/dL 6.4-8.2 Serum or plasma albumin measurement (mass/volume) 3.8 g/dL 3.2-4.5 CALCIUM CORRECTED 9.6 mg/dL 8.5-10.1 Serum or plasma C reactive protein measu rement (mass/volume) - 06/25/18 01:06 Serum or plasma C reactive protein measurement (mass/v olume) 3.15 mg/dL 0.00-0.50 Bacterial blood culture - 06/25/18 01:06 Bacterial blood culture [facility] Influenza virus A and B antigen detectio n - 06/25/18 01:47 FLU RESULT NEGATIVE FOR INFLUENZA A AND B ANTIGENS BY IA [facility] Bacterial blood culture - 06/25/18 02:00 Bacterial blood culture [facility] Complete urinalysis with reflex to cultu re - 06/25/18 02:20 Urine color determination YELLOW NRG Urine clarity determination SLIGHTLY CLOUDY NR Urine pH measurement by test strip 7 5-9 Specific gravity of urine by test strip 1.010 1.016-1.022 Urine protein assay by test strip, semi-quantitative 1+ NEGATIVE Urine glucose detection by automated test strip NE GATIVE NEGATIVE Erythrocytes detection in urine sediment by light micr oscopy 1+ NEGATIVE Urine ketones detection by automated test strip 1+ NEGATIVE Urine nitrite detection by test strip NEGATIVE NEGATIVE Urine total bilirubin detection by test strip NEGA TIVE NEGATIVE Urine urobilinogen measurement by automated test strip (mass/volume) 1 mg/dL NORMAL Urine leukocyte esterase detection by dipstick 3+ NEGATIVE Automated urine sediment erythrocyte cou nt by microscopy (number/high power field) NONE NRG Automated urine sediment leukocyte count by microscopy (number/high power field) > [HPF] NRG Bacteria detection in urine sediment by light microsco py LARGE NRG Squamous epithelial cells detection in u rine sediment by light microscopy 0-2 NRG Crystals detection in urine sediment by light microsco py NONE NRG Casts detection in urine sediment by light microscopy NONE NRG Mucus detection in urine sediment by light microscopy NEGATIVE NRG Complete urinalysis with reflex to culture YES NRG Bacterial urine culture - 06/25/18 02:20 Bacterial urine culture [id number] NRG COLONY COUNT >100,000/ML NRG FTX;REPORTABLE SUSCEPTIBILITIES REPORTED 06/28/18 12:05 NRG RML Sensitivity Panel - 06/25/18 02:20 Gentamicin susceptibility test by minimum inhibitory c oncentration <= NRG Trimethoprim/sulfamethoxazole susceptibi lity test by minimum inhibitoryconcentration <= NRG Levofloxacin susceptibility test by minimum inhibitory concentration <= NRG Ampicillin susceptibility test by minimum inhibitory c oncentration <= NRG Cefazolin susceptibility test by minimum inhibitory co ncentration 2 NRG Ceftriaxone susceptibility test by minimum inhibitory concentration <= NRG Ciprofloxacin susceptibility test by minimum inhibitor y concentration <= NRG Meropenem susceptibility test by minimum inhibitory co ncentration <= NRG Nitrofurantoin susceptibility test by mi nimum inhibitory concentration 32 NRG Amoxicillin and clavulanate potassium susc TORRES <= NRG RML Sensitivity Panel - 06/25/18 02:20 Gentamicin susceptibility test by minimum inhibitory c oncentration <= NRG Trimethoprim/sulfamethoxazole susceptibi lity test by minimum inhibitoryconcentration <= NRG Levofloxacin susceptibility test by minimum inhibitory concentration <= NRG Ampicillin susceptibility test by minimum inhibitory c oncentration <= NRG Cefazolin susceptibility test by minimum inhibitory co ncentration 2 NRG Ceftriaxone susceptibility test by minimum inhibitory concentration <= NRG Ciprofloxacin susceptibility test by minimum inhibitor y concentration <= NRG Meropenem susceptibility test by minimum inhibitory co ncentration <= NRG Nitrofurantoin susceptibility test by mi nimum inhibitory concentration <= NRG Amoxicillin and clavulanate potassium susc TORRES <= NRG Serum or plasma lactate measurement (mol es/volume) - 06/25/18 03:36 Serum or plasma lactate measurement (moles/volume) 0.77 mmol/L 0.50-2.00 Complete blood count (CBC) with automate d white blood cell (WBC) differential - 06/25/18 07:08 Blood leukocytes automated count (number/volume) 3.7 10*3/uL 4.3-11.0 Blood erythrocytes automated count (number/volume) 2.09 10*6/uL 4.35-5.85 Venous blood hemoglobin measurement (mass/volume) 6.7 g/dL 11.5-16.0 Blood hematocrit (volume fraction) 21 % 35-52 Automated erythrocyte mean corpuscular volume 100 [foz_us] 80-99 Automated erythrocyte mean corpuscular h emoglobin (mass per erythrocyte) 32 pg 25-34 Automated erythrocyte mean corpuscular h emoglobin concentration measurement (mass/volume) 32 g/dL 32-36 Automated erythrocyte distribution width ratio 20. 9 % 10.0- 14.5 Automated blood platelet count (count/volume) 40 1 0*3/uL 130-400 Automated blood platelet mean volume measurement [...] 10*3 1.0-4.0 Blood monocytes automated count (number/volume) 0. 4 10*3 0.0-1.0 Automated eosinophil count 0.1 10*3/uL 0 .0-0.3 Automated blood basophil count (count/volume) 0.0 10*3/uL 0.0-0.1 Comprehensive metabolic panel - 06/25/18 07:08 Serum or plasma sodium measurement (moles/volume) 138 mmol/L 135-145 Serum or plasma potassium measurement (moles/volume) 3.2 mmol/L 3.6-5.0 Serum or plasma chloride measurement (moles/volume) 99 mmol/L 98-107 Carbon dioxide 24 mmol/L 21-32 Serum or plasma anion gap determination (moles/volume) 15 mmol/L 5-14 Serum or plasma urea nitrogen measurement (mass/volume ) 19 mg/dL 7-18 Serum or plasma creatinine measurement (mass/volume) 2.41 mg/dL 0.60-1.30 Serum or plasma urea nitrogen/creatinine mass ratio 8 NRG Serum or plasma creatinine measurement w ith calculation of estimated glomerular filtration rate 20 NRG Serum or plasma glucose measurement (mass/volume) 99 mg/dL 70-105 Serum or plasma calcium measurement (mass/volume) 9.0 mg/dL 8.5-10.1 Serum or plasma total bilirubin measurement (mass/volu me) 0.6 mg/dL 0.1-1.0 Serum or plasma alkaline phosphatase javi surement (enzymatic activity/volume) 96 U/L 40-136 Serum or plasma aspartate aminotransfera se measurement (enzymatic activity/volume) 26 U/L 5-34 Serum or plasma alanine aminotransferase measurement (enzymatic activity/volume) 16 U/L 0-55 Serum or plasma protein measurement (mass/volume) 7.0 g/dL 6.4-8.2 Serum or plasma albumin measurement (mass/volume) 3.6 g/dL 3.2-4.5 CALCIUM CORRECTED 9.3 mg/dL 8.5-10.1 Complete blood count (CBC) with automate d white blood cell (WBC) differential - 06/26/18 05:58 Blood leukocytes automated count (number/volume) 3.7 10*3/uL 4.3-11.0 Blood erythrocytes automated count (number/volume) 2.10 10*6/uL 4.35-5.85 Venous blood hemoglobin measurement (mass/volume) 6.7 g/dL 11.5-16.0 Blood hematocrit (volume fraction) 21 % 35-52 Automated erythrocyte mean corpuscular volume 100 [foz_us] 80-99 Automated erythrocyte mean corpuscular h emoglobin (mass per erythrocyte) 32 pg 25-34 Automated erythrocyte mean corpuscular h emoglobin concentration measurement (mass/volume) 32 g/dL 32-36 Automated erythrocyte distribution width ratio 21. 2 % 10.0- 14.5 Automated blood platelet count (count/volume) 42 1 0*3/uL 130-400 Automated blood platelet mean volume measurement 10.7 [foz_us] 7.4-10.4 Automated blood neutrophils/100 leukocytes 51 % 42-75 Automated blood lymphocytes/100 leukocytes 35 % 12-44 Blood monocytes/100 leukocytes 10 % 0-12 Automated blood eosinophils/100 leukocytes 4 % 0-10 Automated blood basophils/100 leukocytes 0 % 0-10 Blood neutrophils automated count (number/volume) 1.9 10*3 1.8-7.8 Blood lymphocytes automated count (number/volume) 1.3 10*3 1.0-4.0 Blood monocytes automated count (number/volume) 0. 4 10*3 0.0-1.0 Automated eosinophil count 0.2 10*3/uL 0 .0-0.3 Automated blood basophil count (count/volume) 0.0 10*3/uL 0.0-0.1 Comprehensive metabolic panel - 06/26/18 05:58 Serum or plasma sodium measurement (moles/volume) 136 mmol/L 135-145 Serum or plasma potassium measurement (moles/volume) 3.2 mmol/L 3.6-5.0 Serum or plasma chloride measurement (moles/volume) 100 mmol/L 98-107 Carbon dioxide 23 mmol/L 21-32 Serum or plasma anion gap determination (moles/volume) 13 mmol/L 5-14 Serum or plasma urea nitrogen measurement (mass/volume ) 18 mg/dL 7-18 Serum or plasma creatinine measurement (mass/volume) 1.95 mg/dL 0.60-1.30 Serum or plasma urea nitrogen/creatinine mass ratio 9 NRG Serum or plasma creatinine measurement w ith calculation of estimated glomerular filtration rate 26 NRG Serum or plasma glucose measurement (mass/volume) 101 mg/dL 70-105 Serum or plasma calcium measurement (mass/volume) 8.8 mg/dL 8.5-10.1 Serum or plasma total bilirubin measurement (mass/volu me) 0.6 mg/dL 0.1-1.0 Serum or plasma alkaline phosphatase javi surement (enzymatic activity/volume) 90 U/L 40-136 Serum or plasma aspartate aminotransfera se measurement (enzymatic activity/volume) 29 U/L 5-34 Serum or plasma alanine aminotransferase measurement (enzymatic activity/volume) 16 U/L 0-55 Serum or plasma protein measurement (mass/volume) 6.9 g/dL 6.4-8.2 Serum or plasma albumin measurement (mass/volume) 3.4 g/dL 3.2-4.5 CALCIUM CORRECTED 9.3 mg/dL 8.5-10.1 Comprehensive metabolic panel - 06/30/18 14:03 Serum or plasma sodium measurement (moles/volume) 135 mmol/L 135-145 Serum or plasma potassium measurement (moles/volume) 3.3 mmol/L 3.6-5.0 Serum or plasma chloride measurement (moles/volume) 98 mmol/L 98-107 Carbon dioxide 20 mmol/L 21-32 Serum or plasma anion gap determination (moles/volume) 17 mmol/L 5-14 Serum or plasma urea nitrogen measurement (mass/volume ) 20 mg/dL 7-18 Serum or plasma creatinine measurement (mass/volume) 2.11 mg/dL 0.60-1.30 Serum or plasma urea nitrogen/creatinine mass ratio 9 NRG Serum or plasma creatinine measurement w ith calculation of estimated glomerular filtration rate 23 NRG Serum or plasma glucose measurement (mass/volume) 92 mg/dL 70-105 Serum or plasma calcium measurement (mass/volume) 9.5 mg/dL 8.5-10.1 Serum or plasma total bilirubin measurement (mass/volu me) 0.6 mg/dL 0.1-1.0 Serum or plasma alkaline phosphatase javi surement (enzymatic activity/volume) 99 U/L 40-136 Serum or plasma aspartate aminotransfera se measurement (enzymatic activity/volume) 30 U/L 5-34 Serum or plasma alanine aminotransferase measurement (enzymatic activity/volume) 17 U/L 0-55 Serum or plasma protein measurement (mass/volume) 8.0 g/dL 6.4-8.2 Serum or plasma albumin measurement (mass/volume) 4.0 g/dL 3.2-4.5 CALCIUM CORRECTED 9.5 mg/dL 8.5-10.1 Complete blood count (CBC) with automate d white blood cell (WBC) differential - 07/02/18 05:20 Blood leukocytes automated count (number/volume) 2.9 10*3/uL 4.3-11.0 Blood erythrocytes automated count (number/volume) 2.08 10*6/uL 4.35-5.85 Venous blood hemoglobin measurement (mass/volume) 6.7 g/dL 11.5-16.0 Blood hematocrit (volume fraction) 21 % 35-52 Automated erythrocyte mean corpuscular volume 102 [foz_us] 80-99 Automated erythrocyte mean corpuscular h emoglobin (mass per erythrocyte) 32 pg 25-34 Automated erythrocyte mean corpuscular h emoglobin concentration measurement (mass/volume) 32 g/dL 32-36 Automated erythrocyte distribution width ratio 22. 6 % 10.0- 14.5 Automated blood platelet count (count/volume) 57 1 0*3/uL 130-400 Automated blood platelet mean volume measurement 12.2 [foz_us] 7.4-10.4 Automated blood neutrophils/100 leukocytes 58 % 42-75 Automated blood lymphocytes/100 leukocytes 28 % 12-44 Blood monocytes/100 leukocytes 10 % 0-12 Automated blood eosinophils/100 leukocytes 4 % 0-10 Automated blood basophils/100 leukocytes 0 % 0-10 Blood neutrophils automated count (number/volume) 1.6 10*3 1.8-7.8 Blood lymphocytes automated count (number/volume) 0.8 10*3 1.0-4.0 Blood monocytes automated count (number/volume) 0. 3 10*3 0.0-1.0 Automated eosinophil count 0.1 10*3/uL 0 .0-0.3 Automated blood basophil count (count/volume) 0.0 10*3/uL 0.0-0.1 Whole blood basic metabolic panel - 06/14 0 05:20 Serum or plasma sodium measurement (moles/volume) 141 mmol/L 135-145 Serum or plasma potassium measurement (moles/volume) 3.2 mmol/L 3.6-5.0 Serum or plasma chloride measurement (moles/volume) 107 mmol/L 98-107 Carbon dioxide 21 mmol/L 21-32 Serum or plasma anion gap determination (moles/volume) 13 mmol/L 5-14 Serum or plasma urea nitrogen measurement (mass/volume ) 9 mg/dL 7-18 Serum or plasma creatinine measurement (mass/volume) 1.13 mg/dL 0.60-1.30 Serum or plasma urea nitrogen/creatinine mass ratio 8 NRG Serum or plasma creatinine measurement w ith calculation of estimated glomerular filtration rate 48 NRG Serum or plasma glucose measurement (mass/volume) 99 mg/dL 70-105 Serum or plasma calcium measurement (mass/volume) 8.3 mg/dL 8.5-10.1 Complete blood count (CBC) with automate d white blood cell (WBC) differential - 07/04/18 08:52 Blood leukocytes automated count (number/volume) 3.3 10*3/uL 4.3-11.0 Blood erythrocytes automated count (number/volume) 2.25 10*6/uL 4.35-5.85 Venous blood hemoglobin measurement (mass/volume) 7.2 g/dL 11.5-16.0 Blood hematocrit (volume fraction) 23 % 35-52 Automated erythrocyte mean corpuscular volume 102 [foz_us] 80-99 Automated erythrocyte mean corpuscular h emoglobin (mass per erythrocyte) 32 pg 25-34 Automated erythrocyte mean corpuscular h emoglobin concentration measurement (mass/volume) 31 g/dL 32-36 Automated erythrocyte distribution width ratio 23. 3 % 10.0- 14.5 Automated blood platelet count (count/volume) 48 1 0*3/uL 130-400 Automated blood platelet mean volume measurement 10.7 [foz_us] 7.4-10.4 Automated blood neutrophils/100 leukocytes 66 % 42-75 Automated blood lymphocytes/100 leukocytes 20 % 12-44 Blood monocytes/100 leukocytes 11 % 0-12 Automated blood eosinophils/100 leukocytes 3 % 0-10 Automated blood basophils/100 leukocytes 0 % 0-10 Blood neutrophils automated count (number/volume) 2.1 10*3 1.8-7.8 Blood lymphocytes automated count (number/volume) 0.7 10*3 1.0-4.0 Blood monocytes automated count (number/volume) 0. 4 10*3 0.0-1.0 Automated eosinophil count 0.1 10*3/uL 0 .0-0.3 Automated blood basophil count (count/volume) 0.0 10*3/uL 0.0-0.1 Whole blood basic metabolic panel - 06/14 10/31 08:52 Serum or plasma sodium measurement (moles/volume) 139 mmol/L 135-145 Serum or plasma potassium measurement (moles/volume) 2.6 mmol/L 3.6-5.0 Serum or plasma chloride measurement (moles/volume) 100 mmol/L 98-107 Carbon dioxide 23 mmol/L 21-32 Serum or plasma anion gap determination (moles/volume) 16 mmol/L 5-14 Serum or plasma urea nitrogen measurement (mass/volume ) 7 mg/dL 7-18 Serum or plasma creatinine measurement (mass/volume) 1.11 mg/dL 0.60-1.30 Serum or plasma urea nitrogen/creatinine mass ratio 6 NRG Serum or plasma creatinine measurement w ith calculation of estimated glomerular filtration rate 49 NRG Serum or plasma glucose measurement (mass/volume) 93 mg/dL 70-105 Serum or plasma calcium measurement (mass/volume) 8.5 mg/dL 8.5-10.1 Methicillin resistant Staphylococcus aur eus (MRSA) screening culture - 09/22/18 10:50 MRSA SCREEN RESULT MRSA ISOLATED NRG Complete blood count (CBC) with automate d white blood cell (WBC) differential - 03/21/19 11:14 Blood leukocytes automated count (number/volume) 4.4 10*3/uL 4.3-11.0 Blood erythrocytes automated count (number/volume) 4.19 10*6/uL 4.35-5.85 Venous blood hemoglobin measurement (mass/volume) 12.5 g/dL 11.5-16.0 Blood hematocrit (volume fraction) 39 % 35-52 Automated erythrocyte mean corpuscular volume 92 [ foz_us] 80-99 Automated erythrocyte mean corpuscular h emoglobin (mass per erythrocyte) 30 pg 25-34 Automated erythrocyte mean corpuscular h emoglobin concentration measurement (mass/volume) 32 g/dL 32-36 Automated erythrocyte distribution width ratio 13. 9 % 10.0- 14.5 Automated blood platelet count (count/volume) 149 10*3/uL 130-400 Automated blood platelet mean volume measurement 9.3 [foz_us] 7.4-10.4 Automated blood neutrophils/100 leukocytes 67 % 42-75 Automated blood lymphocytes/100 leukocytes 25 % 12-44 Blood monocytes/100 leukocytes 6 % 0-12 Automated blood eosinophils/100 leukocytes 3 % 0-10 Automated blood basophils/100 leukocytes 0 % 0-10 Blood neutrophils automated count (number/volume) 3.0 10*3 1.8-7.8 Blood lymphocytes automated count (number/volume) 1.1 10*3 1.0-4.0 Blood monocytes automated count (number/volume) 0. 3 10*3 0.0-1.0 Automated eosinophil count 0.1 10*3/uL 0 .0-0.3 Automated blood basophil count (count/volume) 0.0 10*3/uL 0.0-0.1 Comprehensive metabolic panel - 03/21/19 11:14 Serum or plasma sodium measurement (moles/volume) 141 mmol/L 135-145 Serum or plasma potassium measurement (moles/volume) 4.0 mmol/L 3.6-5.0 Serum or plasma chloride measurement (moles/volume) 102 mmol/L 98-107 Carbon dioxide 28 mmol/L 21-32 Serum or plasma anion gap determination (moles/volume) 11 mmol/L 5-14 Serum or plasma urea nitrogen measurement (mass/volume ) 22 mg/dL 7-18 Serum or plasma creatinine measurement (mass/volume) 1.52 mg/dL 0.60-1.30 Serum or plasma urea nitrogen/creatinine mass ratio 14 NRG Serum or plasma creatinine measurement w ith calculation of estimated glomerular filtration rate 34 NRG Serum or plasma glucose measurement (mass/volume) 124 mg/dL 70-105 Serum or plasma calcium measurement (mass/volume) 9.3 mg/dL 8.5-10.1 Serum or plasma total bilirubin measurement (mass/volu me) 0.3 mg/dL 0.1-1.0 Serum or plasma alkaline phosphatase javi surement (enzymatic activity/volume) 120 U/L 40-136 Serum or plasma aspartate aminotransfera se measurement (enzymatic activity/volume) 18 U/L 5-34 Serum or plasma alanine aminotransferase measurement (enzymatic activity/volume) 14 U/L 0-55 Serum or plasma protein measurement (mass/volume) 7.3 g/dL 6.4-8.2 Serum or plasma albumin measurement (mass/volume) 3.9 g/dL 3.2-4.5 CALCIUM CORRECTED 9.4 mg/dL 8.5-10.1 CA 125 - 03/21/19 11:14 CA 125 C 9.4 u[iU]/mL 0.0-35.0 Encounters ACCT No. Visit Date/Time Discharge Status Pt. Type Provider Facility Loc./Unit Complaint [id number] 07/12/2019 14:20:00 07/12/2019 23:59:5 9 CLS Outpatient ROBERT PIERRE LAC RENICK FQ [id number] 08/21/2019 07:28:00 23:59:59 CLS Preadmit GUICHO LAUGHLIN MD [facility] RAD POSSIBLE MASS [id number] 08/18/2019 15:13:00 17:40:00 DIS Emergency GUICHO LAUGHLIN MD [facility] ER FALL [id number] 06/20/2019 00:11:00 23:59:[address] MD [facility] ONC [id number] 03/21/2019 10:53:00 00:01:[address] MD [facility] ONC [id number] 12/20/2018 10:42:00 00:01:[address] MD [facility] ONC [id number] 01/16/2019 12:45:00 23:59:[address] MD [facility] RAD BREAST CANCER [id number] 10/26/2018 10:55:00 00:01:[address] MD [facility] ONC [id number] 09/29/2018 08:55:00 12:10:00 DIS Outpatient ARIELLA PENALOZA DO [facility] SDC MALFUNCTIONING PORT [id number] 09/22/2018 09:20:00 11:51:00 DIS Outpatient ARIELLA PENALOZA DO [facility] PREOP PORT REMOVAL [id number] 09/19/2018 13:46:00 23:59:[address] MD [facility] RAD [id number] 07/18/2018 15:01:00 01/02/2 019 00:01:[address] MD [facility] ONC [id number] 06/30/2018 13:08:00 018 16:30:[address] MD [facility] 4TH AMS,UTI [id number] 06/25/2018 02:59:00 13:15:00 DIS Inpatient JEAN PAUL ANTHONY MD [facility] 4TH UTI,WEAKNESS,N/V [id number] 06/09/2018 14:08:00 018 11:02:[address] MD [facility] ONC [id number] 06/10/2018 00:08:00 018 23:59:[address] MD [facility] ONC [id number] 05/05/2018 11:54:00 018 15:09:00 DIS Outpatient KATIA PARR MD, [facility] ONC [id number] 05/05/2018 11:14:00 018 23:59:59 CLS Outpatient KATIA PARR MD, [facility] RAD ENDOMETRIAL,OVARIAN AND BREAST CA [id number] 04/07/2018 12:26:00 018 23:59:[address] MD [facility] ONC [id number] 03/24/2018 12:10:00 018 15:20:00 DIS Outpatient KATIA PARR MD, [facility] ONC [id number] 03/28/2018 11:45:00 018 23:59:59 CLS Outpatient CRISTY SILVER [facility] LAB METABOLIC ACIDOSIS, HYP ERLIPIDEMIA [id number] 03/03/2018 13:59:00 018 09:00:[address] MD [facility] ONC [id number] 02/02/2018 07:32:00 018 23:59:[address] MD [facility] SDC D05.11 BREAST CANCER [id number] 01/17/2018 11:34:00 018 23:59:[address] MD [facility] RAD C56.1 OVARIAN CANCER D0 5.11 BREAST CANCER [id number] 01/13/2018 08:52:00 018 23:59:[address] MD [facility] RAD R92.8 ABNORMAL MAMMOGRA M [id number] 12/22/2017 11:15:00 018 23:59:[address] MD [facility] RAD SCREENING [id number] 10/06/2017 11:10:00 018 23:59:59 CLS Outpatient CRISTY SILVER NP-Sherine [facility] LAB E87.2,E78.5 [id number] 09/21/2017 10:51:00 018 00:01:[address] MD [facility] ONC [id number] 08/26/2017 11:29:00 017 23:59:59 CLS Outpatient ALFREDO CADENA [facility] RAD SCREENING FOR OSTEOPOR OSIS Z13.820,M81.0 [id number] 03/30/2017 10:43:00 017 00:01:[address] MD Via [facility] ONC [id number] 01/19/2017 11:40:00 017 23:59:59 CLS Outpatient MILKA SANCHEZ MD, FACC, FACP CC DS Via [facility] CARD R07.89,I25. 10,I10 [id number] 01/07/2017 14:05:00 017 23:59:59 CLS Outpatient MILKA SANCHEZ MD, FACC, FACP CC DS Via [facility] CARD R07.89,I65. 23,I25.10 [id number] 12/21/2016 12:01:00 23:59:[address] MD [facility] RAD SCREENING [id number] 12/08/2016 12:55:00 00:01:[address] MD [facility] ONC [id number] 09/15/2016 09:43:00 00:01:[address] MD [facility] ONC [id number] 09/09/2016 12:29:00 23:59:[address] MD [facility] RAD OVARIAN CA [id number] 07/09/2016 12:04:00 23:59:59 CLS Outpatient ARIELLA PENALOZA DO D Via [facility] CATH MALFUNCTIONING PORT [id number] 07/06/2016 08:22:00 016 23:59:59 CLS Outpatient ARIELLA PENALOZA DO D [facility] CATH MALFUNCTIONING PORT [id number] 06/18/2016 07:09:00 016 13:32:00 DIS Outpatient ARIELLA PENALOZA DO D Via [facility] SDC OVARIAN CANCER [id number] 06/01/2016 09:26:00 016 14:07:[address] MD [facility] ONC [id number] 06/16/2016 06:01:00 016 13:51:00 DIS Outpatient ARIELLA PENALOZA DO D Via [facility] PREOP OVARIAN CANCER [id number] 06/01/2016 09:56:00 016 23:59:[address] MD [facility] RAD OVARIAN CA [id number] 04/28/2016 10:58:00 016 00:01:[address] DIS Out[address]NA [address] MD [facility] ONC [id number] 11/12/2015 11:07:00 016 00:01:[address]NA [address] MD [facility] ONC [id number] 11/15/2015 11:43:00 016 23:59:[address] MD [facility] RAD SCREENING [id number] 11/08/2015 11:22:00 016 23:59:[address] MD Via [facility] RAD REGAGING OVARIAN CA [id number] 11/07/2015 10:10:00 23:59:[address] MD Via [facility] RAD RESTAGING OF OVARIAN CA NCER [id number] 07/22/2015 12:47:00 00:01:[address] DIS [address]NA [address] MD [facility] ONC [id number] 08/29/2015 10:38:00 14:30:00 DIS Outpatient TEODORO HERNANDEZ DO Via [facility] SDC HX SALINAS'S DI SEASE [id number] 08/27/2015 05:50:00 23:59:59 CLS Outpatient TEODORO HERNANDEZ DO Via [facility] PREOP HX BARRETTS DIS EASE [id number] 07/09/2015 10:20:00 23:59:[address] MD [facility] RAD [id number] 07/04/2015 09:55:00 23:59:[address] MD [facility] RAD RESTAGING BREAST/OVARIA N CA [id number] 05/21/2015 11:25:00 015 00:01:[address] MD [facility] ONC [id number] 06/06/2015 07:16:00 015 09:45:00 DIS Outpatient FERNY NICHOLSON MD Via [facility] SDC HX OF BARRETS ESOPHAGI TIS [id number] 06/04/2015 05:43:00 015 23:59:59 CLS Outpatient FERNY NICHOLSON MD Via [facility] PREOP HX OF BARRETS ESOPHAGI TIS [id number] 04/09/2015 08:58:00 015 00:01:[address] MD [facility] ONC [id number] 04/03/2015 10:27:00 015 23:59:[address] MD [facility] RAD RESTAGING BREAST,OVARIA N CA [id number] 02/25/2015 11:56:00 015 23:59:59 CLS Outpatient NALINI SEBASTIAN Via [facility] CARD CAD,HTN,HLP [id number] 02/01/2015 11:08:00 015 23:59:59 CLS Outpatient NALINI SEBASTIAN Via [facility] CARD CAD,HTN,HLP [id number] 12/28/2014 12:00:00 015 00:01:[address] MD [facility] ONC [id number] 12/28/2014 13:47:00 015 23:59:[address] MD [facility] RAD OVARIAN CANCER [id number] 10/25/2014 10:06:00 015 23:59:[address] MD [facility] RAD SCREENING [id number] 08/21/2014 10:42:00 015 00:01:[address] MD [facility] ONC [id number] 05/17/2014 07:09:00 014 23:59:59 CLS Outpatient FERNY NICHOLSON MD Via [facility] SDC BARRX [id number] 05/16/2014 07:30:00 23:59:59 CLS Outpatient FERNY NICHOLSON MD Via [facility] PREOP BARRX [id number] 04/09/2014 07:58:00 11:27:00 DIS Outpatient FERNY NICHOLSON MD Via [facility] SDC GERD [id number] 02/19/2014 11:25:00 00:01:[address] MD [facility] ONC [id number] 04/04/2014 08:16:00 23:59:59 CLS Outpatient FERNY NICHOLSON MD Via [facility] PREOP GERD [id number] 03/07/2014 08:15:00 23:59:59 CLS Outpatient ALFREDO CADENA Via [facility] RAD CHRONIC KIDNEY DISEASE STAGE III [id number] 12/07/2013 08:07:00 11:45:00 DIS Outpatient FERNY NICHOLSON MD Via [facility] SDC GERD [id number] 12/06/2013 07:25:00 23:59:59 CLS Outpatient FERNY NICHOLSON MD [facility] PREOP GERD [id number] 11/15/2013 12:54:00 00:01:[address] MD [facility] ONC [id number] 10/24/2013 09:14:00 23:59:[address] MD [facility] RAD SCREENING [id number] 10/05/2013 07:50:00 13:25:00 DIS Outpatient FERNY NICHOLSON MD Via [facility] FOLLOW UP REFLUX ESOPH AGITIS [id number] 10/04/2013 07:19:00 23:59:59 CLS Outpatient FERNY NICHOLSON MD Via [facility] PREOP FOLLOW UP REFLUX ESOPH AGITIS [id number] 07/12/2013 14:07:00 013 00:01:[address]NA [address] MD [facility] ONC [id number] 06/22/2013 06:38:00 013 11:25:00 DIS Outpatient FERNY NICHOLSON MD Via [facility] SDC FOLLOW UP REFLUX ESOPH AGITIS [id number] 06/21/2013 07:12:00 23:59:59 CLS Outpatient FERNY NICHOLSON MD Via [facility] PREOP FOLLOW UP REFLUX ESOPH AGITIS [id number] 06/13/2013 08:31:00 23:59:[address] MD [facility] RAD LESION ON C/SP, ABN PET SCAN [id number] 03/29/2013 14:02:00 013 00:01:[address]NA [address] MD [facility] ONC [id number] 03/30/2013 09:10:00 013 12:15:00 DIS Outpatient FERNY NICHOLSON MD Via [facility] DYSPHAGIA [id number] 03/29/2013 07:23:00 23:59:59 CLS Outpatient FERNY NICHOLSON MD [facility] PREOP DYSPHAGIA [id number] 03/09/2013 08:13:00 013 12:08:00 DIS Outpatient FERNY NICHOLSON MD Via [facility] SDC ANEMIA [id number] 03/08/2013 09:38:00 23:59:59 CLS Outpatient FERNY NICHOLSON MD [facility] PREOP ANEMIA [id number] 02/14/2013 10:09:00 23:59:[address] MD [facility] RAD OVARIAN CA,FOLLOW-UP [id number] 01/16/2013 08:00:00 13:10:00 DIS Outpatient ZARA LIU, SUZIE [facility] CATH ABN STRESS TEST,SOB,HTN [id number] 10/25/2014 10:06:00 Document Registration [id number] 12/16/2012 08:29:00 Document Registration [id number] 12/13/2012 10:07:00 Document Registration [id number] 11/28/2012 08:18:00 Document Registration [id number] 11/10/2012 13:09:00 Document Registration [id number] 10/24/2012 10:52:00 Document Registration [id number] 07/25/2012 10:04:00 Document Registration [id number] 04/26/2012 09:40:00 Document Registration [id number] 04/04/2012 10:08:00 Document Registration [id number] 03/17/2012 06:41:00 Document Registration [id number] 03/15/2012 07:59:00 Document Registration [id number] 12/14/2011 12:50:00 Document Registration [id number] 10/23/2011 09:51:00 Document Registration [id number] 10/20/2011 11:55:00 Document Registration [id number] 10/15/2011 09:59:00 Document Registration [id number] 09/22/2011 12:24:00 Document Registration [id number] 07/03/2011 05:35:00 Document Registration [id number] 07/02/2011 12:26:00 Document Registration [id number] 06/30/2011 10:44:00 Document Registration [id number] 05/05/2011 09:44:00 Document Registration [id number] 04/14/2011 13:03:00 Document Registration [id number] 04/09/2011 12:05:00 Document Registration [id number] 03/25/2011 14:39:00 Document Registration [id number] 10/22/2010 13:35:00 Document Registration [id number] 09/30/2010 14:32:00 Document Registration [id number] 07/09/2010 07:09:00 Document Registration [id number] 07/02/2010 12:56:00 Document Registration [id number] 06/04/2010 13:44:00 Document Registration [id number] 12/11/2009 13:36:00 Document Registration [id number] 10/18/2009 10:08:00 Document Registration [id number] 06/12/2009 10:28:00 Document Registration [id number] 06/11/2009 10:28:00 Document Registration
== END 2019-08-18 17:40 | disposition home or self-care (01) ==
LOC: EDUNIT# 15:12 → ER 15:13
DX: S09.90XA Unspecified injury of head, initial encounter (principal); D49.6 Neoplasm of unspecified behavior of brain; I10 Essential (primary) hypertension; E78.00 Pure hypercholesterolemia, unspecified; I25.10 Atherosclerotic heart disease of native coronary artery without angina pectoris; F41.9 Anxiety disorder, unspecified; F32.9 Major depressive disorder, single episode, unspecified; D64.9 Anemia, unspecified; K21.9 Gastro-esophageal reflux disease without esophagitis; R40.2142 Coma scale, eyes open, spontaneous, at arrival to emergency department; R40.2252 Coma scale, best verbal response, oriented, at arrival to emergency department; R40.2362 Coma scale, best motor response, obeys commands, at arrival to emergency department; Z85.3 Personal history of malignant neoplasm of breast; Z85.43 Personal history of malignant neoplasm of ovary; Z85.44 Personal history of malignant neoplasm of other female genital organs; Z88.0 Allergy status to penicillin; Z91.041 Radiographic dye allergy status; Z79.02 Long term (current) use of antithrombotics/antiplatelets; Z90.710 Acquired absence of both cervix and uterus; Z95.5 Presence of coronary angioplasty implant and graft; W19.XXXA Unspecified fall, initial encounter; W22.8XXA Striking against or struck by other objects, initial encounter
CPT/HCPCS: 70450; 73610; 73630

== ENCOUNTER → 2019-09-19 | Outpatient (CLI) | payer MEDICARE, MEDICAID ==
[~2019-09-19] MED LIST changes: +MAGN400T6 PO; -MAGN400T8 PO
--- NOTE | 2019-09-19 09:55 | Diagnostic Imaging Report ---
PROCEDURE: MR imaging of the brain without contrast. TECHNIQUE: Multiplanar, multisequence MR imaging of the brain was performed without contrast. INDICATION: Altered mental status. Abnormal head CT. History of breast cancer, ovarian cancer and lymphoma. COMPARISON: CT head without contrast 08/18/2019. MRI brain without contrast 06/30/2018. FINDINGS: There is a mixed solid and cystic mass in the right basal ganglia which measures approximately 2.4 x 3.0 cm. This is new since 06/30/2018 and corresponds to the findings on 08/18/2019 CT. There are also scattered nonspecific T2 hyperintensities in the supratentorial white matter which have mildly progressed since the prior MRI. There is a small focus of restricted water diffusion along the superior margin of the mass. No other restricted water diffusion. No hemosiderin deposition. Normal morphology of the major midline structures, sella, posterior fossa and cerebellar pontine angle. No hydrocephalus or extra-axial fluid collections. Normal intracranial flow voids. Postoperative changes in the globes. The paranasal sinuses are clear. Small fusion of the right mastoid. Normal bone marrow signal. IMPRESSION: Mixed solid and cystic mass in the right basal ganglia measures 3.0 cm. Given the history of multiple malignancies, metastatic disease would be the most likely etiology. There are also a few new scattered T2 hyperintensities in the supratentorial white matter which are nonspecific. Although these may represent progression of chronic small vessel ischemic change, additional smaller metastases cannot be excluded. Recommend further evaluation with contrast-enhanced MRI. Dictated by: Dictated on workstation # [id number]
== END ==
LOC: RAD 08:33
PROVIDERS: ATTEND Emergency Medicine
DX: G93.89 Other specified disorders of brain (principal); R41.82 Altered mental status, unspecified; Z85.3 Personal history of malignant neoplasm of breast; Z85.43 Personal history of malignant neoplasm of ovary; Z85.72 Personal history of non-Hodgkin lymphomas
CPT/HCPCS: 70551

== ENCOUNTER → 2019-09-19 | Outpatient (CLI) | payer MEDICARE, MEDICAID | LOC: LAB 08:38 | PROVIDERS: ATTEND Nurse Practitioner Community Health | DX: R93.89 Abnormal findings on diagnostic imaging of other specified body structures (principal) ==

== ENCOUNTER → 2019-09-26 | Outpatient (CLI) | payer MEDICARE, MEDICAID ==
[~2019-09-26] MED LIST changes: -MAGN400T6 PO; +MAGN400T8 PO
[2019-09-26 11:23] LABS: BASOPHILS % (AUTO) 0 % (0-10); EOSINOPHILS # (AUTO) 0.1 10^3/uL (0.0-0.3); EOSINOPHILS % (AUTO) 3 % (0-10); HEMATOCRIT 38 % (35-52); HEMOGLOBIN 12.1 G/DL (11.5-16.0); LYMPHOCYTES # (AUTO) 1.3 X 10^3 (1.0-4.0); LYMPHOCYTES % (AUTO) 26 % (12-44); MEAN CORPUSCULAR HEMOGLOBIN 29 PG (25-34); MEAN CORPUSCULAR HGB CONC 32 G/DL (32-36); MEAN CORPUSCULAR VOLUME 90 FL (80-99); MEAN PLATELET VOLUME 8.8 FL (7.4-10.4); MONOCYTES # (AUTO) 0.4 X 10^3 (0.0-1.0); MONOCYTES % (AUTO) 9 % (0-12); NEUTROPHILS % (AUTO) 62 % (42-75); PLATELET COUNT 190 10^3/uL (130-400); RED CELL DISTRIBUTION WIDTH 14.7 % (10.0-14.5); WHITE BLOOD COUNT 4.9 10^3/uL (4.3-11.0)
[2019-09-26 11:51] LABS: ALBUMIN 3.8 GM/DL (3.2-4.5); BILIRUBIN,TOTAL 0.4 MG/DL (0.1-1.0); CALCIUM 8.9 MG/DL (8.5-10.1); CREATININE SERUM 1.76 MG/DL (0.60-1.30); POTASSIUM 4.1 MMOL/L (3.6-5.0)
== END ==
LOC: EDSTATUS 06-20 16:02 → ONC 11:17
PROVIDERS: ATTEND Internal Medicine Hematology & Oncology
DX: C56.1 Malignant neoplasm of right ovary (principal); C55 Malignant neoplasm of uterus, part unspecified; C50.411 Malignant neoplasm of upper-outer quadrant of right female breast; C78.00 Secondary malignant neoplasm of unspecified lung; N18.2 Chronic kidney disease, stage 2 (mild); F28 Other psychotic disorder not due to a substance or known physiological condition; I25.10 Atherosclerotic heart disease of native coronary artery without angina pectoris; N28.9 Disorder of kidney and ureter, unspecified; Z79.899 Other long term (current) drug therapy; Z90.710 Acquired absence of both cervix and uterus; Z98.890 Other specified postprocedural states; Z98.42 Cataract extraction status, left eye; Z98.41 Cataract extraction status, right eye; Z95.5 Presence of coronary angioplasty implant and graft; Z80.3 Family history of malignant neoplasm of breast
CPT/HCPCS: 80053; 85025; 86304; 99213

== ENCOUNTER 2019-09-28 10:14 | Outpatient (RCR) | payer MEDICARE, MEDICAID ==
[~2019-09-28 10:14] MED LIST changes: -GADOBUTROL 10 MMOL/10 ML (GADAVIST) VIAL IV ONE
[2019-09-28] MEDS ORDERED: NS IV 1000 ML (CANCER CTR) 1,000 ML ONE (10:18)
[2019-09-28 10:56] LABS: CALCIUM 9.3 MG/DL (8.5-10.1); CREATININE SERUM 1.61 MG/DL (0.60-1.30); POTASSIUM 4.2 MMOL/L (3.6-5.0)
== END 2019-11-23 15:17 | disposition home or self-care (01) ==
LOC: ONC 10:14
PROVIDERS: ATTEND Internal Medicine Hematology & Oncology
DX: C56.1 Malignant neoplasm of right ovary (principal); C55 Malignant neoplasm of uterus, part unspecified; C50.411 Malignant neoplasm of upper-outer quadrant of right female breast; C78.00 Secondary malignant neoplasm of unspecified lung; N18.2 Chronic kidney disease, stage 2 (mild); F28 Other psychotic disorder not due to a substance or known physiological condition; I25.10 Atherosclerotic heart disease of native coronary artery without angina pectoris; N28.9 Disorder of kidney and ureter, unspecified; Z79.899 Other long term (current) drug therapy; Z90.710 Acquired absence of both cervix and uterus; Z98.890 Other specified postprocedural states; Z98.42 Cataract extraction status, left eye; Z98.41 Cataract extraction status, right eye; Z95.5 Presence of coronary angioplasty implant and graft; Z80.3 Family history of malignant neoplasm of breast
CPT/HCPCS: 80048; 96360; 96361

== ENCOUNTER → 2019-09-28 | Outpatient (CLI) | payer MEDICARE, MEDICAID ==
[~2019-09-28] MED LIST changes: +GADOBUTROL 10 MMOL/10 ML (GADAVIST) VIAL IV ONE
--- NOTE | 2019-09-28 12:29 | Diagnostic Imaging Report ---
CLINICAL INDICATION: Patient with recent MRI of the brain without contrast. Patient returning for contrast. Patient has history of altered mental status, breast cancer, ovarian cancer, and lymphoma. Abnormal head CT and MRI of the brain. EXAM: MRI of the brain performed without and with 5 mL of Gadavist IV contrast. Sequences include axial T1, axial T1 post IV contrast, coronal T1 fat sat post IV contrast, sagittal T1 post IV contrast, and axial FSPGR [place] post contrast. COMPARISON: MRI of the brain performed without contrast dated 09/19/2019. FINDINGS: There is heterogeneous enhancement involving the irregular mass within the right basal ganglia. There is slight progression of peripheral high T1 signal adjacent to this mass. This mass measures 3.0 cm x 2.4 cm x 3.0 cm (AP x Trans x CC). There is no significant adjacent parenchymal edema. There is a very subtle 5 mm area of amorphous enhancement involving the high parasagittal posterior left frontal lobe region. This is seen on the axial T1 post IV contrast sequence series 4, image 21, but best seen on the axial FSPGR [place] post-contrast sequence series 7, image 163. There is no other signal abnormality in the region. There are no other areas of abnormal IV contrast enhancement. The remainder of the brain parenchyma is stable. There is no hydrocephalus, brain herniation, or midline shift. This extracranial soft tissues, skull, and orbits are unremarkable. There is mild mucosal thickening involving both maxillary sinuses. Mastoid air cells show no significant abnormality. IMPRESSION: 1: There is heterogeneous enhancement involving the 3.0 cm right basal ganglia mass. There is development of thin peripheral high T1 signal about this mass, which may represent blood component and less likely mineralization given the rapid onset of this finding. There is no significant adjacent parenchymal edema or brain herniation. This lesion is most concerning for a metastatic lesion. 2: There is a very subtle 5 mm amorphous area of enhancement involving the high parasagittal posterior left frontal lobe region. This may also represent a metastatic lesion. 3: The remainder of this exam shows no significant interval change compared to the prior study of comparison. Dictated by: Dictated on workstation # [id number]
== END ==
LOC: RAD 10:48
PROVIDERS: ATTEND Internal Medicine Hematology & Oncology
DX: R93.0 Abnormal findings on diagnostic imaging of skull and head, not elsewhere classified (principal); R22.0 Localized swelling, mass and lump, head; C56.1 Malignant neoplasm of right ovary; D05.11 Intraductal carcinoma in situ of right breast
CPT/HCPCS: 70552

== ENCOUNTER → 2019-10-23 | Outpatient (CLI) | payer MEDICARE, MEDICAID ==
[2019-10-23 15:23] LABS: CLARITY,URINE SL CLOUDY; COLOR,URINE YELLOW; GLUCOSE, URINE (UA) NEGATIVE (NEGATIVE); KETONES,URINE TRACE (NEGATIVE); LEUKOCYTE ESTERASE ,URINE 3+ (NEGATIVE); NITRITE,URINE NEGATIVE (NEGATIVE); PROTEIN,URINE 1+ (NEGATIVE)
[2019-10-23 15:36] LABS: BACTERIA,URINE LARGE /HPF
[2019-10-23 15:38] LABS: RBC,URINE 50-100 /HPF; SQUAMOUS EPITHELIAL CELL,UR 0-2 /HPF; WBC,URINE 50-100 /HPF
[2019-10-23 15:39] LABS: BILIRUBIN,URINE 1+ (NEGATIVE)
== END ==
LOC: LABNPT 15:11
PROVIDERS: ATTEND Internal Medicine Hematology & Oncology
DX: R30.0 Dysuria (principal)
CPT/HCPCS: 81000; 87077; 87088

== ENCOUNTER 2019-11-27 13:51 | Outpatient (RCR) | payer MEDICAID, MEDICARE, OTHER | END 2019-11-27 15:53 | disposition home or self-care (01) | LOC: ONC 13:51 | PROVIDERS: ATTEND Internal Medicine Hematology & Oncology | DX: C56.1 Malignant neoplasm of right ovary (principal); C55 Malignant neoplasm of uterus, part unspecified; C50.411 Malignant neoplasm of upper-outer quadrant of right female breast; C78.00 Secondary malignant neoplasm of unspecified lung; N18.2 Chronic kidney disease, stage 2 (mild); F28 Other psychotic disorder not due to a substance or known physiological condition; I25.10 Atherosclerotic heart disease of native coronary artery without angina pectoris; N28.9 Disorder of kidney and ureter, unspecified; Z79.899 Other long term (current) drug therapy; Z90.710 Acquired absence of both cervix and uterus; Z98.890 Other specified postprocedural states; Z98.42 Cataract extraction status, left eye; Z98.41 Cataract extraction status, right eye; Z95.5 Presence of coronary angioplasty implant and graft; Z80.3 Family history of malignant neoplasm of breast | CPT/HCPCS: 99213 ==

== ENCOUNTER → 2019-12-12 | Outpatient (CLI) | payer MEDICARE, MEDICAID ==
--- NOTE | 2019-12-12 13:11 | Diagnostic Imaging Report ---
Indication: Ovarian carcinoma with subsequent restaging assess treatment response. Patient blood glucose level at time of injection is 115 mg deciliter. Patient was administered 14.8 mCi F-18 FDG intravenously and PET imaging was performed from the top of skull to mid thighs. Noncontrast CT was also performed for attenuation correction and anatomic correlation. No prior PET/CT studies available for comparison. Comparison is made with prior CT chest, abdomen and pelvis study from 05/05/2018. There is a hypermetabolic focus identified in the right basal ganglia region, correlating with patient's known brain mass. Soft tissues of the neck appear unremarkable. There is some physiologic muscular uptake in the chest. No significant hypermetabolism in the mediastinum is seen apart from a indeterminate lymph node in the prevascular space with SUV approximately 2.9. [place] are unremarkable. Pulmonary parenchyma is unremarkable. Abdomen pelvis demonstrate physiologic activity within the gastrointestinal and genitourinary tracts. There is a focus of uptake in the left para midline pelvis which projects just to the left of the rectum and posterior to the urinary. This is difficult to further characterize on a noncontrast CT but could be secondary to patient's known ovarian carcinoma. No other suspicious metabolic foci are seen. IMPRESSION: 1. Hypermetabolic right-sided brain mass. 2. Abnormal hyper metabolism in the deep pelvis just to the left of the rectum and posterior urinary bladder, perhaps patient's known ovarian neoplasm. No other suspicious foci in the abdomen or pelvis are identified. There is an indeterminate lymph node in the mediastinum in the prevascular space with borderline SUV value. Continued follow-up can be obtained. Dictated by: Dictated on workstation # [id number]
== END ==
LOC: RAD 08:49
PROVIDERS: ATTEND Internal Medicine Hematology & Oncology
DX: C56.1 Malignant neoplasm of right ovary (principal); G93.9 Disorder of brain, unspecified

== ENCOUNTER 2019-12-26 10:16 | Outpatient (RCR) | payer MEDICARE, MEDICAID ==
[2019-11-29 13:01] LABS: BASOPHILS % (AUTO) 0 % (0-10); EOSINOPHILS # (AUTO) 0.1 10^3/uL (0.0-0.3); EOSINOPHILS % (AUTO) 2 % (0-10); HEMATOCRIT 38 % (35-52); HEMOGLOBIN 12.1 G/DL (11.5-16.0); LYMPHOCYTES # (AUTO) 1.5 X 10^3 (1.0-4.0); LYMPHOCYTES % (AUTO) 26 % (12-44); MEAN CORPUSCULAR HEMOGLOBIN 29 PG (25-34); MEAN CORPUSCULAR HGB CONC 32 G/DL (32-36); MEAN CORPUSCULAR VOLUME 90 FL (80-99); MEAN PLATELET VOLUME 10.2 FL (7.4-10.4); MONOCYTES # (AUTO) 0.5 X 10^3 (0.0-1.0); MONOCYTES % (AUTO) 8 % (0-12); NEUTROPHILS # (AUTO) 3.7 X 10^3 (1.8-7.8); NEUTROPHILS % (AUTO) 64 % (42-75); PLATELET COUNT 157 10^3/uL (130-400); RED CELL DISTRIBUTION WIDTH 14.7 % (10.0-14.5); WHITE BLOOD COUNT 5.8 10^3/uL (4.3-11.0)
[2019-11-29 13:22] LABS: ALBUMIN 3.7 GM/DL (3.2-4.5); BILIRUBIN,TOTAL 0.3 MG/DL (0.1-1.0); CALCIUM 8.5 MG/DL (8.5-10.1); CREATININE SERUM 1.92 MG/DL (0.60-1.30); POTASSIUM 3.9 MMOL/L (3.6-5.0); TOTAL PROTEIN 7.2 GM/DL (6.4-8.2)
== END 2020-02-27 | disposition home or self-care (01) ==
LOC: ONC 10:16
PROVIDERS: ATTEND Internal Medicine Hematology & Oncology
DX: Z51.0 Encounter for antineoplastic radiation therapy (principal); C56.1 Malignant neoplasm of right ovary; C79.31 Secondary malignant neoplasm of brain; Z85.3 Personal history of malignant neoplasm of breast
CPT/HCPCS: 77290; 77334; 80053; 85025; 86304; G0463; 77295; 77300; 77336; 77417; 77470; 99204; 99213; 99214

== ENCOUNTER → 2020-01-18 | Outpatient (CLI) | payer MEDICARE, MEDICAID ==
[2020-01-18 13:33] LABS: CLARITY,URINE CLOUDY; COLOR,URINE YELLOW; GLUCOSE, URINE (UA) NEGATIVE (NEGATIVE); KETONES,URINE TRACE (NEGATIVE); LEUKOCYTE ESTERASE ,URINE 2+ (NEGATIVE); NITRITE,URINE POSITIVE (NEGATIVE); PH,URINE 5.5 (5-9); PROTEIN,URINE 2+ (NEGATIVE)
[2020-01-18 14:14] LABS: AMORPHOUS SEDIMENT,UR FEW AMOR URATES /LPF; BACTERIA,URINE LARGE /HPF; BILIRUBIN,URINE 3+ (NEGATIVE); CALCIUM OXALATE CRYSTALS,UR FEW /LPF; WBC,URINE TNTC /HPF
== END ==
LOC: LABNPT 13:27
PROVIDERS: ATTEND Internal Medicine Hematology & Oncology
DX: R82.998 Other abnormal findings in urine (principal)
CPT/HCPCS: 81000; 87077; 87088

== ENCOUNTER → 2020-03-04 | Outpatient (CLI) | payer MEDICARE, MEDICAID ==
[2020-03-04 12:07] LABS: BILIRUBIN,URINE NEGATIVE (NEGATIVE); CLARITY,URINE CLOUDY; COLOR,URINE ORANGE; GLUCOSE, URINE (UA) NEGATIVE (NEGATIVE); KETONES,URINE NEGATIVE (NEGATIVE); LEUKOCYTE ESTERASE ,URINE NEGATIVE (NEGATIVE); NITRITE,URINE NEGATIVE (NEGATIVE); PH,URINE 5.5 (5-9); PROTEIN,URINE NEGATIVE (NEGATIVE)
[2020-03-04 12:36] LABS: AMORPHOUS SEDIMENT,UR LARGE AMOR URATES /LPF; BACTERIA,URINE NEGATIVE /HPF
== END ==
LOC: LABNPT 11:52
PROVIDERS: ATTEND Internal Medicine Hematology & Oncology
DX: N17.9 Acute kidney failure, unspecified (principal); I10 Essential (primary) hypertension
CPT/HCPCS: 81000